=== PATIENT | female | born 1960 | race Caucasian/White ===

== ENCOUNTER 2018-02-17 03:07 | Inpatient (IN) | payer MEDICAID, SELFPAY ==
[2018-02-17 03:10] VITALS: BP 143/79; PULSE 105; RESP 18; TEMP 36.5; O2SAT 97; BMI 32.3
--- NOTE | 2018-02-17 03:20 | ED.VISSUMM ---
- ER Visit Summary Date of Service: 02/17/18 Chief Complaint: Dysuria History of Present Illness: The patient is a 57 F presenting with dysuria. She states this has been ongoing for months. She states 2 months ago she was seen by her primary care physician and had a negative UA. She was advised to follow-up with her VIDEO CONTROL ENGINEER. She states her VIDEO CONTROL ENGINEER tested her urine and it was positive for bacteria and she was treated with for UTI with unknown antibiotic. This was approximately 2 months ago. She has had intermittent pain with urination. She states it worsened today. She has had dysuria, hematuria, urinary frequency. Denies fever or other complaints. Physical Examination: Vitals are stable. Patient is afebrile. Alert no acute distress. HEENT exam is unremarkable. Neck is supple. Lungs are clear and equal bilaterally. Heart is regular rate and rhythm. Abdomen is soft mild suprapubic tenderness, no rebound or guarding. Reducible hernia Pelvic: No vaginal bleeding Extremities are unremarkable. Skin is warm and dry. No focal neurologic deficit. Remainder of exam is unremarkable. Emergency Department Course and Treatment: Urine was grossly bloody. Urinalysis shows over 100 red blood cells, over 100 white cells. CBC shows a WBC count 11.8. INR 1.1. Hemoglobin 14.5. Urine culture sent. CT abdomen pelvis shows mild diffuse mural thickening of the urinary bladder. 8 mm nodular density in the posterior midline urinary bladder may represent a blood clot or soft tissue mass. Air in the urinary bladder lumen is probably due to recent catheterization. Otherwise, the possibility of urinary infection with gas producing bacteria must be considered. Left renal cyst. No demonstrated urinary calculi or hydronephrosis. Status post appendectomy, hysterectomy, small bowel surgery, and partial resection of the sigmoid colon. Abdominal wall hernias containing small bowel loops. No associated bowel obstruction or strangulation. Gaffney catheter was placed after her CT was performed. She was given Cipro IV. Bladder was irrigated. With irrigation it did clear to light pink and then became darker again. Discussed with Dr. Johnson and the hospitalist for admission. Disposition: Observation Impression: Hematuria, UTI This note was generated with GOQiiation software. It may contain incorrect words, spelling, and punctuation that were not noted in review of the chart prior to signing ED Disposition - Plan for ED Patient: Chief Complaint: Complaint Referrals: Lorelei Borges MD [Primary Care Provider] -
--- NOTE | 2018-02-17 03:23 | ED.DCSUM_ITS ---
- ER Visit Summary Date of Service: 02/17/18 Chief Complaint: Dysuria History of Present Illness: The patient is a 57 F presenting with dysuria. She states this has been ongoing for months. She states 2 months ago she was seen by her primary care physician and had a negative UA. She was advised to follow- up with her AUDIT MACHINE OPERATOR. She states her AUDIT MACHINE OPERATOR tested her urine and it was positive for bacteria and she was treated with for UTI with unknown antibiotic. This was approximately 2 months ago. She has had intermittent pain with urination. She states it worsened today. She has had dysuria, hematuria, urinary frequency. Denies fever or other complaints. Physical Examination: Vitals are stable. Patient is afebrile. Alert no acute distress. HEENT exam is unremarkable. Neck is supple. Lungs are clear and equal bilaterally. Heart is regular rate and rhythm. Abdomen is soft mild suprapubic tenderness, no rebound or guarding. Reducible hernia Pelvic: No vaginal bleeding Extremities are unremarkable. Skin is warm and dry. No focal neurologic deficit. Remainder of exam is unremarkable. Emergency Department Course and Treatment: Urine was grossly bloody. Urinalysis shows over 100 red blood cells, over 100 white cells. CBC shows a WBC count 11.8. INR 1.1. Hemoglobin 14.5. Urine culture sent. CT abdomen pelvis shows mild diffuse mural thickening of the urinary bladder. 8 mm nodular density in the posterior midline urinary bladder may represent a blood clot or soft tissue mass. Air in the urinary bladder lumen is probably due to recent catheterization. Otherwise, the possibility of urinary infection with gas producing bacteria must be considered. Left renal cyst. No demonstrated urinary calculi or hydronephrosis. Status post appendectomy, hysterectomy, small bowel surgery, and partial resection of the sigmoid colon. Abdominal wall hernias containing small bowel loops. No associated bowel obstruction or strangulation. Gaffney catheter was placed after her CT was performed. She was given Cipro IV. Bladder was irrigated. With irrigation it did clear to light pink and then became darker again. Discussed with Dr. Johnson and the hospitalist for admission. Disposition: Observation Impression: Hematuria, UTI This note was generated with AutekBioation software. It may contain incorrect words, spelling, and punctuation that were not noted in review of the chart prior to signing ED Disposition - Plan for ED Patient: Chief Complaint: Complaint Referrals: Lorelei Borges MD [Primary Care Provider] -
[2018-02-17 03:34] LABS: Bacteria 0 SEEN /hpf (None Seen); Mucous, Urine 0 SEEN /hpf (<or=2+)
[2018-02-17 03:50] LABS: Color, Urine Red (Yellow); Glucose, Dipstick 250 mg/dl (Normal); Ketone-Dipstick 5 mg/dl (Negative); Leukocyte Esterase-Dipstick Negative /ul (Negative); Nitrite-Dipstick Negative (Negative); Occult Blood-Urine 250 /ul (Negative); Protein-Dipstick 100 mg/dl (Negative); Red Blood Cells-Urine > 100 SEEN /hpf (0-5); Squamous Epithelial Cells - UA 0-5 SEEN /hpf (5-10); Urine Bilirubin Dipstick Negative (Negative); Urine Clarity Turbid (Clear); Urine Urobilinogen Normal (Normal); Urine pH 6.5 (5.0 - 8.0); White Blood Cells >100 SEEN /hpf (0-5)
[2018-02-17 03:50] LABS: Absolute Lymphocyte Count 2.75 X10^3/ul (0.83-4.51); Absolute Neutrophil Count 7.9 X10^3/uL (2.0-7.7); Basophil# 0.03 X10^3/uL; Basophil% 0.3 % (0-1); Eosinophil# 0.32 X10^3/uL; Eosinophils% 2.7 % (0-5); Hematocrit 43.4 % (37-47); Hemoglobin 14.5 g/dl (12.0-15.0); Lymphocyte # 2.75 X10^3/ul (4.0); Lymphocyte % 23.3 % (19-41); Mean Corp Hgb Conc 33.4 g/gl (32-36); Mean Corpuscular Hgb 29.1 pg (27.0-32.0); Monocyte# 0.79 X10^3/uL; Monocyte% 6.7 % (0-10); Neutrophil # 7.87 X10^3/uL (2.7-7.7); Neutrophil % 66.8 % (47-70); POSITIVE COUNT NO; POSITIVE DIFFERENTIAL NO; POSITIVE MORPHOLOGY NO; Platelet Count 347 K/mm3 (150-450); RBC Distribution Width CV 13.8 % (11.6-14.6); RBC Distribution Width SD 43.4 fl (35.1-43.9); Red Blood Count 4.99 M/mm3 (4.2-5.4); White Blood Count 11.8 K/mm3 (4.4-11.0)
--- NOTE | 2018-02-17 03:50 | CT_ITS ---
STUDY: CT ABDOMEN AND PELVIS WITH CONTRAST REASON FOR EXAM: Female, 57 years old. Hematuria. Low pelvic pain. History of colon cancer in 2010 with colectomy. History of small bowel obstruction with removal of 10 inches. History of appendectomy and total abdominal hysterectomy. RADIATION DOSAGE (If Supplied By Facility): CTDIvol = ( 15.66 ) mGy, DLP = ( 1074.18 ) mGycm TECHNIQUE: Transaxial images were obtained from the dome of the diaphragm to the symphysis pubis without oral contrast. 100ML ml of Isovue 300 contrast was administered. Sagittal and coronal images were reconstructed. Individualized dose optimization techniques were used for this CT. COMPARISON: None. FINDINGS: The visualized lung bases are unremarkable. The visualized portions of the heart are within normal limits. Normal liver. Normal gallbladder and extrahepatic biliary system. Normal spleen. Normal pancreas. Normal bilateral adrenal glands. Normal right kidney. There is a 2 cm left upper pole renal cortical cyst. Hours, normal left kidney. Normal visualized stomach. There is evidence for previous small bowel surgery. There is evidence for previous sigmoid colon surgery. Otherwise, normal colon. There is non-visualization of the appendix, consistent with given history of prior appendectomy. There is mild atherosclerotic calcification of the abdominal aorta, without a demonstrated aneurysm. Normal inferior vena cava. Normal retroperitoneum. There is air in the urinary bladder lumen which might be due to recent catheterization. If the patient has not been catheterized, and the possibility of infection with gas producing bacteria must be considered. There is mild diffuse mural thickening of the urinary bladder. As seen on axial images 96-98, there an 8 mm focal density within the posterior bladder lumen which might represent a blood clot or a soft tissue mass. There is absence of the uterus consistent with a prior hysterectomy. There are left periumbilical and left para midline anterior pelvic wall hernias which contain small bowel loops. There is no associated bowel obstruction or strangulation There are multilevel degenerative changes of the visualized lumbar spine. CT/Abdomen/Pelvis W IV Cont ONLY IMPRESSION: Mild diffuse mural thickening of the urinary bladder. 8 mm nodular density in the posterior midline urinary bladder may represent a blood clot or soft tissue mass. Air in the urinary bladder lumen is probably due to recent catheterization. Otherwise, the possibility of urinary infection with gas producing bacteria must be considered. Left renal cyst. No demonstrated urinary calculi or hydronephrosis. Status post appendectomy, hysterectomy, small bowel surgery, and partial resection of the sigmoid colon. Abdominal wall hernias containing small bowel loops. No associated bowel obstruction or strangulation. Electronically Signed: Syed Edwards MD at 4:58 EDT , Service support ,
[2018-02-17 03:56] LABS: International Normalized Ratio 1.1; Prothrombin Time (Protime)PT. 13.7 SECONDS (11.7-14.9)
[2018-02-17 04:07] LABS: Anion Gap 10 (5-15); BUN 10 mg/dL (7-18); BUN/Creat Ratio 10.6 RATIO (10-20); Calcium,Total 8.8 mg/dL (8.5-10.1); Chloride 99 mmol/L (98-107); Creatinine, Serum 0.94 mg/dL (0.55-1.02); EST Glomerular Filtration Rate 65 mL/min (>60); Est Glom Filt Rate - Afr Amer 78 mL/min (>60); Estimated Creatinine Clearance 54.62 ml/min; Glucose 462 mg/dL (74-106); Potassium 3.6 mmol/L (3.5-5.1); Sodium Level 138 mmol/L (136-145)
--- NOTE | 2018-02-17 04:08 | ED.RN ---
LAB CALLS WITH CRITICAL RESULT, GLUCOSE 462, DR. SANDOVAL MADE AWARE.
[2018-02-17 05:11] VITALS: RESP 17
--- NOTE | 2018-02-17 05:19 | ED.RN ---
PT IRRIGATED WITH APPROXIMATELY 250 ML STERILE WATER. PT DRAINING PINK TO BRIGHT RED URINE. MINIMAL CLOTS NOTED.
[2018-02-17] MEDS: Ciprofloxacin 400 MG/200 ML BAG 200 MG IV (05:48)
[2018-02-17 05:53] VITALS: BP 141/73; PULSE 91; RESP 15; TEMP 36.3; O2SAT 99
--- NOTE | 2018-02-17 07:23 | PCM.HP.STD ---
Problem List (1) Uncontrolled diabetes mellitus Status: Chronic Qualifiers: Diabetes mellitus type: type 2 (2) HTN (hypertension) Status: Chronic (3) HLD (hyperlipidemia) Status: Chronic (4) Restless leg Status: Chronic (5) Hematuria Status: Chronic (6) Complicated UTI (urinary tract infection) Status: Acute (7) Urine retention Status: Acute (8) History of colon cancer Status: Acute (9) History of uterine cancer Status: Chronic (10) Tobacco dependence Status: Chronic (11) COPD (chronic obstructive pulmonary disease) Status: Chronic (12) Morbid obesity Status: Chronic (13) Bladder mass Status: Chronic History of Present Illness Date of Admission: 02/17/18 Chief Complaint: hematuria, urinary hesitancy, dysuria The patient is a 57 year old F with a with a PMH of diabetes mellitus type 2, hypertension, hyperlipidemia, history of colon cancer (status post sigmoid resection), history of uterine cancer (he status post DUANE/BSO), morbid obesity, nicotine addiction, reported RA(on methotrexate in the past) and restless leg syndrome presented to the emergency department at [facility] on 02/17/2018 complaining of suprapubic pain, hematuria, dysuria and inability to empty her bladder. Vital signs in the emergency room were temperature 97.2, pulse rate 103, blood pressure 102/64, respiratory rate 18 and she was 93-97% saturated on room air. A clean catch urine was obtained and showed greater than 100 WBCs per high-power field and greater than 100 RBCs per high-power field. There were no bacteria seen. White blood cell count was 11.8 with a normal differential. Hemoglobin and platelets are within normal limits. PT was 13.7. Electrolytes are normal and the BUN is 10 with a creatinine of 0.94. Random blood sugar was 462. Patient admits that she has no insurance and has not taken any medications, including insulin, for the past [address] scan of the abdomen was obtained prior to placement of a Barcenas catheter and showed mild diffuse mural thickening of the urine bladder with an 8 mm nodular density in the posterior midline urinary bladder. There was air in the urinary bladder lumen and once again this was prior to catheterization. There was no hydronephrosis. Patient was unable to urinate and a Barcenas catheter was placed with a large return of very bloody urine. The urine in the Barcenas bag now is pink. Her last colonoscopy was [address] Beckwith and was normal. Hysterectomy was in 2005. She was admitted to the hospital with a diagnosis of complicated UTI with possible bladder mass and gas producing bacteria. Past Medical History Past Medical History (Chronic Problems): Chronic Problems Uncontrolled diabetes mellitus (Chronic) HTN (hypertension) (Chronic) HLD (hyperlipidemia) (Chronic) Restless leg (Chronic) Hematuria (Chronic) History of uterine cancer (Chronic) Tobacco dependence (Chronic) COPD (chronic obstructive pulmonary disease) (Chronic) Morbid obesity (Chronic) Bladder mass (Chronic) Allergies metformin Adverse Reaction (Verified 02/17/18 03:07) Nausea Home Medications: Ambulatory Orders Medication Instructions Recorded Atorvastatin Calcium [Lipitor] 40 mg PO QHS 02/28/14 Ergocalciferol [Vitamin D] 50,000 unit PO Q7D 02/28/14 Gabapentin [Neurontin] 300 mg PO BIDCM 02/28/14 Gabapentin [Neurontin] 600 mg PO QHS 02/28/14 Insulin Glargine [Lantus SoloStar 44 units SC QHS 02/28/14 Pen] Lisinopril [Zestril] 10 mg PO DAILY 02/28/14 Pregabalin [Lyrica] 100 mg PO TID 02/28/14 Spironolactone [Aldactone] 50 mg PO DAILY 02/28/14 Ropinirole HCl [Requip] 5 mg PO QHS 02/17/18 Surgical History: - - colon resection for colon cancer by Dr. 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 Started smoking at the age of 15. Tobacco Use: Cigarettes Alcohol: Rare Drugs: None - *Family History Maternal History Items: Heart Disease Review of Systems Constitutional: Denies: Anorexia, Chills, Fever, Weakness Eyes: Denies: Vision Change HEENT: Denies: Head Aches, Sinus Congestion, Sinus Drainage Cardiovascular: Denies: Chest Pain, Edema, Light Headedness, Palpitations Respiratory: Reports: Wheezing. Denies: Cough, Shortness of Breath Gastrointestinal: Reports: - - Suprapubic pain. Denies: Diarrhea, Nausea, Vomiting Genitourinary: Reports: Dysuria, Hesitancy, Retention Gynecological: Denies: Breast symptoms, Vaginal discharge Musculoskeletal: Denies: Joint Pain, Joint Tenderness Skin: Denies: Jaundice, Rash, Wounds Neurological: Denies: Numbness, Tingling, Focal weakness Psychiatric: Reports: Anxiety. Denies: Suicidal Ideations Endocrine: Denies: Change in Body Habitus, Hx of Thyroiditis Hematologic/ Lymphatic: Denies: Hx of blood clot VTE Information - Inpt Only VTE Present on Admission: No VTE Mechan Device Prophylaxis: SCD's, Knee High JANET Hose VTE Pharm Prophylaxis ordered?: No Reason prophylaxis not ordered:: Treatment Not Indicated - having hematuria and may be going to surgery for bladder mass Patient Problems: Active and Suspected Problems Complicated UTI (urinary tract infection) (Acute) Urine retention (Acute) History of colon cancer (Acute) - Physical Exam General: Alert, Oriented x3, Cooperative, - - having restless legs HEENT: Atraumatic, PERRLA, EOMI, Normocephalic Oral: No Gingival or Mucosal Lesions/ Ulcerations, Dry Mucosa Neck: Supple, No JVD, No Nodes, Trachea Midline Lungs: No rhonchi, No wheeze, No rales, Diminished Cardiovascular: Regular rate, Regular Rhythm, Normal S1, Normal S2, No murmurs, No rub noted, No Gallop Abdomen: Bowel Sounds Present, Soft, Non Tender, Non-Distended Extremities: No clubbing, No cyanosis, No edema, No Calf Tenderness, Peripheral Pulses Normal Skin: No rashes, No breakdown, - - has a scratch on the RLE kristina the MM which has dried eschar...no erythema Musculoskeletal: No Muscle Wasting Lymphatic: No Cervical, Supraclavicular, or Inguinal Adenopathy Neurological: Cranial nerves II-XII grossly intact, Neuro grossly intact Psych/Mental Status: Normal Affect, Appropriate Vital Signs Temp Pulse Resp BP Pulse Ox 97.4 F L 91 15 141/73 H 99 02/17/18 05:53 02/17/18 05:53 02/17/18 05:53 02/17/18 05:53 02/17/18 05:53 Oxygen Delivery Method Room Air Weight: 182 lb 12.211 oz Body Mass Index (BMI) 32.3 Finger Stick Blood Glucose 218 Laboratory Tests Past 24 Hrs 02/17/18 02/17/1802/17/18 03:30 03:40 03:40 WBC 11.8 H RBC 4.99 Hgb 14.5 Hct 43.4 MCV 87.0 MCH 29.1 MCHC 33.4 RDW 13.8 RDW Differential 43.4 Plt Count 347 MPV 9.0 Immature Gran % (Auto) 0.200 Neut % (Auto) 66.8 Lymph % (Auto) 23.3 [place] % (Auto) 6.7 Eos % (Auto) 2.7 Baso % (Auto) 0.3 Absolute Neuts (auto) 7.9 H Absolute Lymphs (auto) 2.75 Total Counted Not Reportable PT 13.7 INR 1.1 Sodium Potassium Chloride Carbon Dioxide Anion Gap BUN Creatinine Estim Creat Clear Calc Est GFR (MDRD) Af Amer Est GFR (MDRD) Non-Af BUN/Creatinine Ratio Glucose Calcium Urine Color Red Urine Clarity Turbid Urine pH 6.5 Ur Specific [place] 1.020 Urine Protein 100 H Urine Glucose (UA) 250 H Urine Ketones 5 H Urine Occult Blood 250 H Urine Nitrite Negative Urine Bilirubin Negative Urine Urobilinogen Normal Ur Leukocyte Esterase Negative Urine RBC > 100 SEEN Urine WBC >100 SEEN Ur Squamous Epith Cells 0-5 SEEN Urine Bacteria 0 SEEN Urine Mucus 0 SEEN 02/17/18 03:40 WBC RBC Hgb Hct MCV MCH MCHC RDW RDW Differential Plt Count MPV Immature Gran % (Auto) Neut % (Auto) Lymph % (Auto) [place] % (Auto) Eos % (Auto) Baso % (Auto) Absolute Neuts (auto) Absolute Lymphs (auto) Total Counted PT INR Sodium 138 Potassium 3.6 Chloride 99 Carbon Dioxide 29.0 Anion Gap 10 BUN 10 Creatinine 0.94 Estim Creat Clear Calc 54.62 Est GFR (MDRD) Af Amer 78 Est GFR (MDRD) Non-Af 65 BUN/Creatinine Ratio 10.6 Glucose 462 H* Calcium 8.8 Urine Color Urine Clarity Urine pH Ur Specific [place] Urine Protein Urine Glucose (UA) Urine Ketones Urine Occult Blood Urine Nitrite Urine Bilirubin Urine Urobilinogen Ur Leukocyte Esterase Urine RBC Urine WBC Ur Squamous Epith Cells Urine Bacteria Urine Mucus Assessment/Plan All Active Problems Complicated UTI (urinary tract infection) (Acute) Urine retention (Acute) History of colon cancer (Acute) Impressions 1. complicated UTI? She is afebrile and has only a mildly increased WBC count with a normal diff? may just be candiduria from uncontrolled DM. I am concerned about the gas in the bladder that showed on CT scan PRIOR to barcenas insertion. Will treat with Swetha and Flagyl for now and await the results of urine culture. Will send a new specimen from the barcenas catheter and send that for culture. 2. Bladder mass vs clot 3. urine retention 4. Uncontrolled diabetes mellitus I have. Noncompliance with medications 6. Hypertension 7. Hyperlipidemia 8. History of sigmoid colon resection for colon cancer 9. History of uterine cancer-status post DUANE with BSO 10. Tobacco dependence 11. COPD 12. Restless leg syndrome 13. History of anxiety-has been on BuSpar in the past admit to medical surgical floor Consult Dr. Elizabeth Posada and Jennifer Send urine from the Barcenas catheter for UA and culture and discard the previous clean-catch urine Accu-Cheks before meals and at bedtime and start Levemir 20 units twice daily with sliding scale insulin coverage at meals Hemoglobin A1c, liver panel, magnesium, phosphorus Restart ropinirole for restless leg Restart lipid-lowering agent and lisinopril for hypertension Recheck lab in the a.m. Is at high risk for DVT however she does have significant hematuria and there is a possibility Dr. Palmer on to do a cystoscopy so will hold pharmacologic DVT prophylaxis at the present time and use SCDs and JANET hose for DVT prophylaxis Smoking cessation counseling was given. Will start Wellbutrin 150 mg every morning and a nicotine patch 21 mg daily smoking cessation counseling consult has been ordered Code Visit Inpatient E&M: 42221 Init Hosp L2
[2018-02-17] MEDS: Pramipexole Di-HCl 0.25 MG Tablet PO (07:33)
--- NOTE | 2018-02-17 07:54 | PCM.CONS.U ---
Reason for Consult Date of Consultation: 02/17/18 Reason for Consultation: Hemorrhagic cystitis History of Present Illness: The patient is a 57 year old female who has used her diabetes glucoses fairly high presented to the emergency room with gross hematuria, CAT scan was done demonstrated some air in the bladder mild thickening of the bladder but mostly consistent with hemorrhagic cystitis I do not see any obvious masses or tumors. She does states that she has been battling infections for the last several weeks. The urine was fairly bloody on presentation to the emergency room catheter has been placed now the urine is clearing. She is concerned because she has a history of colon cancer on CAT scan she does have a incisional hernia Past Medical History Past Medical History (Chronic Problems): Chronic Problems Uncontrolled diabetes mellitus (Chronic) HTN (hypertension) (Chronic) HLD (hyperlipidemia) (Chronic) Restless leg (Chronic) Hematuria (Chronic) History of uterine cancer (Chronic) Tobacco dependence (Chronic) COPD (chronic obstructive pulmonary disease) (Chronic) Morbid obesity (Chronic) Bladder mass (Chronic) Allergies metformin Adverse Reaction (Verified 02/17/18 03:07) Nausea Home Medications: Ambulatory Orders Medication Instructions Recorded Atorvastatin Calcium [Lipitor] 40 mg PO QHS 02/28/14 Ergocalciferol [Vitamin D] 50,000 unit PO Q7D 02/28/14 Gabapentin [Neurontin] 300 mg PO BIDCM 02/28/14 Gabapentin [Neurontin] 600 mg PO QHS 02/28/14 Insulin Glargine [Lantus SoloStar 44 units SC QHS 02/28/14 Pen] Lisinopril [Zestril] 10 mg PO DAILY 02/28/14 Pregabalin [Lyrica] 100 mg PO TID 02/28/14 Spironolactone [Aldactone] 50 mg PO DAILY 02/28/14 Ropinirole HCl [Requip] 5 mg PO QHS 02/17/18 Surgical History: - - colon resection for colon cancer by Dr. 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 Started smoking at the age of 15. Tobacco Use: Cigarettes Alcohol: Rare Drugs: None - *Family History Maternal History Items: Heart Disease Review of Systems Constitutional: Denies: Chills, Fever, Weight Change HEENT: Denies: Head Aches, Sinus Congestion, Sinus Drainage Cardiovascular: Denies: Chest Pain, Palpitations Respiratory: Denies: Cough, Shortness of breath at rest, Sputum production Gastrointestinal: Denies: Abdominal Pain, Nausea, Vomiting Genitourinary: Denies: Dysuria Musculoskeletal: Denies: Joint Pain, Joint Tenderness Skin: Denies: Rash, Wounds Neurological: Denies: Numbness, Tingling, Focal weakness Psychiatric: Denies: Anxiety, Depression, Homicidal Ideations, Suicidal Ideations Hematologic/ Lymphatic: Denies: Easy Bruising, Easy Bleeding Physical Exam - Physical Exam Vital Signs Temp 97.4 F L 02/17/18 05:53 Pulse 91 02/17/18 05:53 Resp 15 02/17/18 05:53 BP 141/73 H 02/17/18 05:53 Pulse Ox 99 02/17/18 05:53 General: Alert, Oriented x3 HEENT: Atraumatic Oral: Moist Mucosa Neck: Supple Lungs: Normal air movement Cardiovascular: Regular rate - He would think that were not gotten out the, Regular Rhythm Abdomen: Bowel Sounds Present, Soft, Obese Rectal: Exam deferred Extremities: No clubbing, No cyanosis, No edema - they still do it Musculoskeletal: No Tenderness to Palpation of Joints or Extremities Lymphatic: No Cervical, Supraclavicular, or Inguinal Adenopathy Neurological: Cranial nerves II-XII grossly intact - The only by excessive daytime Assessment/Plan All Active Problems Complicated UTI (urinary tract infection) (Acute) Urine retention (Acute) History of colon cancer (Acute) 57-year-old female presents to the emergency room with a UA positive with with infection, air in the bladder consistent with hemorrhagic cystitis, urine is off fairly clear after some irrigation, probably can DC the Gaffney catheter within 24 hours, continue with antibiotics, follow up on urine cultures, she can follow-up with urology as an outpatient basis for an outpatient cystoscopy but I think the source of the hematuria is most like most likely hemorrhagic cystitis given the clinical setting also reviewed the CAT scan did not really see any obvious masses. Call me with questions.
[2018-02-17 08:10] VITALS: BMI 32.5
[2018-02-17 08:11] VITALS: BP 116/70; PULSE 98; RESP 16; TEMP 36.9; O2SAT 92
[2018-02-17 08:28] LABS: Erythrocyte Sedimentation Rate 34 mm/hr (0-30)
[2018-02-17 08:49] LABS: AST(SGOT) 10 U/L (15-37); Alanine Aminotransfer ALT/SGPT 16 U/L (13-56); Albumin, Serum 3.2 g/dL (3.2-5.0); Alkaline Phosphatase 174 U/L (45-117); Bilirubin, Direct 0.16 mg/dL (0.00-0.30); Magnesium 1.5 mg/dL (1.6-2.6); Phosphorus 3.1 mg/dL (2.5-4.9); Protein, Total 7.2 g/dL (6.4-8.2); Rheumatoid Factor < 10.0 IU/mL (<15)
[2018-02-17 08:50] LABS: Hemoglobin A1c 12.7 % (4.2-6.3)
[2018-02-17] MEDS: 0.9% Normal Saline 1,000 ML 75 ML IV (09:01)
[2018-02-17] MEDS: Ceftriaxone 1 GM/50 ML BAG IV (09:01)
[2018-02-17 09:03] LABS: Mucous, Urine 0 SEEN /hpf (<or=2+)
[2018-02-17 09:06] LABS: Color, Urine Yellow (Yellow); Glucose, Dipstick 1000 mg/dl (Normal); Ketone-Dipstick Negative (Negative); Leukocyte Esterase-Dipstick 500 /ul (Negative); Nitrite-Dipstick Negative (Negative); Occult Blood-Urine 250 /ul (Negative); Protein-Dipstick 100 mg/dl (Negative); Specific Gravity, Urine 1.015 (1.002-1.030); Urine Bilirubin Dipstick Negative (Negative); Urine Clarity Sl. Cloudy (Clear); Urine Urobilinogen Normal (Normal)
[2018-02-17] MEDS: Acetaminophen 325 MG Tablet 650 MG PO (09:06)
[2018-02-17] MEDS: Insulin Lispro 100 UNIT/ML INSULN.PEN SQ ×4 (09:06→21:58)
[2018-02-17] MEDS: buPROPion (XL) 150 MG TABLET.XL PO (09:08)
[2018-02-17] MEDS: Lisinopril 10 MG Tablet PO (09:08)
[2018-02-17 09:16] LABS: Bedside Glucose 433 mg/dL (70-110)
[2018-02-17 09:17] LABS: Bacteria 1+ /hpf (None Seen); Red Blood Cells-Urine 25-50 SEEN /hpf (0-5); Squamous Epithelial Cells - UA 0-5 SEEN /hpf (5-10); White Blood Cells 50-100 SEEN /hpf (0-5)
[2018-02-17 12:35] LABS: Bedside Glucose 350 mg/dL (70-110)
[2018-02-17 14:24] VITALS: BP 121/65; PULSE 86; RESP 16; TEMP 37; O2SAT 94
[2018-02-17 17:11] LABS: Bedside Glucose 193 mg/dL (70-110)
[2018-02-17] MEDS: Pregabalin 50 MG Capsule 100 MG PO (18:44)
[2018-02-17] MEDS: hydrOXYzine PAM 25 MG Capsule PO (20:23)
[2018-02-17 20:24] VITALS: BP 128/72; PULSE 95; RESP 18; TEMP 36.7; O2SAT 93
[2018-02-17] MEDS: Atorvastatin Calcium 40 MG Tablet PO (21:21)
[2018-02-17] MEDS: Pramipexole Di-HCl 1 MG Tablet PO (21:56)
[2018-02-17] MEDS: Pantoprazole Sodium 40 MG Tablet PO (21:56)
[2018-02-17] MEDS: busPIRone 5 MG Tablet PO (21:56)
[2018-02-17 22:09] LABS: Amphetamine Urine VISTA NEGATIVE (<1000 ng/mL); Barbiturate Urine VISTA NEGATIVE (< 200 ng/mL); Benzodiazepine Urine VISTA NEGATIVE (< 200 ng/mL); Cocaine Urine VISTA NEGATIVE (< 300 ng/mL); Ecstacy Urine VISTA POSITIVE (< 500 ng/mL); Methadone Urine VISTA NEGATIVE (< 300 ng/mL); PCP Urine VISTA NEGATIVE (< 25 ng/mL); THC Urine VISTA NEGATIVE (< 50 ng/mL); Vista UDS pH Range 5
[2018-02-17 23:01] LABS: Bedside Glucose 237 mg/dL (70-110)
[2018-02-18] MEDS: 0.9% Normal Saline 1,000 ML 75 ML IV (00:01)
[2018-02-18 02:50] VITALS: BP 124/65; PULSE 92; RESP 16; TEMP 36.6; O2SAT 94
[2018-02-18] MEDS: Pregabalin 50 MG Capsule 100 MG PO ×2 (06:41→15:35)
[2018-02-18 06:46] LABS: Bedside Glucose 140 mg/dL (70-110)
[2018-02-18 06:51] LABS: Absolute Neutrophil Count 6.2 X10^3/uL (2.0-7.7); Basophil# 0.02 X10^3/uL; Basophil% 0.2 % (0-1); Eosinophil# 0.25 X10^3/uL; Eosinophils% 2.7 % (0-5); Hematocrit 40.1 % (37-47); Hemoglobin 12.9 g/dl (12.0-15.0); Lymphocyte % 23.6 % (19-41); Mean Corp Hgb Conc 32.2 g/gl (32-36); Mean Corpuscular Hgb 28.3 pg (27.0-32.0); Mean Corpuscular Volume 87.9 fL (81-99); Monocyte% 6.4 % (0-10); Neutrophil # 6.24 X10^3/uL (2.7-7.7); Platelet Count 312 K/mm3 (150-450); RBC Distribution Width SD 45.1 fl (35.1-43.9); Red Blood Count 4.56 M/mm3 (4.2-5.4); White Blood Count 9.3 K/mm3 (4.4-11.0)
[2018-02-18 06:56] LABS: POSITIVE COUNT NO; POSITIVE DIFFERENTIAL NO; POSITIVE MORPHOLOGY NO
[2018-02-18 07:29] LABS: Anion Gap 5 (5-15); BUN 10 mg/dL (7-18); BUN/Creat Ratio 18.6 RATIO (10-20); Calcium,Total 8.1 mg/dL (8.5-10.1); Chloride 109 mmol/L (98-107); Cholesterol 84 mg/dL (200); Creatinine, Serum 0.54 mg/dL (0.55-1.02); EST Glomerular Filtration Rate 124 mL/min (>60); Est Glom Filt Rate - Afr Amer 150 mL/min (>60); Estimated Creatinine Clearance 95.08 ml/min; Glucose 155 mg/dL (74-106); High Density Lipoprotein 36 mg/dL; Magnesium 1.6 mg/dL (1.6-2.6); Potassium 3.2 mmol/L (3.5-5.1); Sodium Level 145 mmol/L (136-145); Triglycerides 177 mg/dL; Very Low Density Lipoprotein 35 mg/dL (5-40)
[2018-02-18] MEDS: Ceftriaxone 1 GM/50 ML BAG IV (09:10)
[2018-02-18 10:00] VITALS: BP 111/77; PULSE 98; RESP 18; TEMP 36.7; O2SAT 94
[2018-02-18] MEDS: busPIRone 5 MG Tablet PO (10:58)
[2018-02-18] MEDS: DULoxetine Hcl 60 MG Capsule PO (10:59)
[2018-02-18] MEDS: Lisinopril 10 MG Tablet PO (10:59)
[2018-02-18] MEDS: Pantoprazole Sodium 40 MG Tablet PO (10:59)
[2018-02-18 11:50] LABS: Bedside Glucose 228 mg/dL (70-110)
[2018-02-18] MEDS: Insulin Lispro 100 UNIT/ML INSULN.PEN SQ (11:58)
--- NOTE | 2018-02-18 12:20 | CASEMGMT ---
SEE RN CM LINK. D/C PLAN: HOME No discharge needs identified. Pt reports has upcoming appt w/BETO Walden for DM and diabetic supplies. Collette ADHIKARI RN CM
--- NOTE | 2018-02-18 13:51 | CON.PCM_ITS ---
Problem List (1) Neuropathy Status: Chronic Reason for Consult Date of Consultation: 02/18/18 Reason for Consultation: Neuropathy History of Present Illness: The patient is a 57 year old CF with PMH HTN, HLD, DM, DM Neuropathy, RLS, H/O Colon Cancer s/p chemotherapy, H/O uterine cancer, tobacco abuse, COPD admitted with complicated UTI and hemorrhagic cystitis. Neurology consulted for neuropathy. Per patient she has been having neuropathy symptoms for many years, has numbness in the feet, and fingers, became worse after chemotherapy for Colon cancer in 2009. Has been on Gabapentin initially for neuropathy which did not help with improving her symptoms and later Lyrica was added and since then her symptoms have been tolerable. At present she is on both Gabapentin and Lyrica, does not see any neurologist as outpatient. Denies any falls, denies balance issues, does not need assistance for her ADLs, and does drive. [] Past Medical History Past Medical History (Chronic Problems): Chronic Problems Uncontrolled diabetes mellitus (Chronic) HTN (hypertension) (Chronic) HLD (hyperlipidemia) (Chronic) Restless leg (Chronic) Hematuria (Chronic) History of uterine cancer (Chronic) Tobacco dependence (Chronic) COPD (chronic obstructive pulmonary disease) (Chronic) Morbid obesity (Chronic) Bladder mass (Chronic) Neuropathy (Chronic) Allergies metformin Adverse Reaction (Verified 02/17/18 03:07) Nausea Home Medications: Ambulatory Orders Medication Instructions Recorded Atorvastatin Calcium [Lipitor] 40 mg PO QHS 02/28/14 Ergocalciferol [Vitamin D] 50,000 unit PO MARTLEL 02/28/14 Gabapentin [Neurontin] 300 mg PO BID 02/28/14 Gabapentin [Neurontin] 600 mg PO QHS 02/28/14 Insulin Glargine [Lantus SoloStar 42 units SC QHS 02/28/14 Pen] Lisinopril [Zestril] 10 mg PO DAILY 02/28/14 Pregabalin [Lyrica] 100 mg PO TID 02/28/14 Spironolactone [Aldactone] 50 mg PO DAILY 02/28/14 Duloxetine HCl 60 mg PO DAILY 02/17/18 Pantoprazole Sodium [Protonix] 40 mg PO BID 02/17/18 Ropinirole HCl [Requip] 2 mg PO QHS 02/17/18 buPROPion XL [Wellbutrin Xl] 150 mg PO DAILY 02/17/18 Surgical History: - - colon resection for colon cancer by Dr. Beckwith, 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: - - uterine CA Lives: With Family Smoking Status: Current every day smoker Tobacco Use: Cigarettes - 2 PPD Alcohol: Rare Drugs: None - *Family History Maternal History Items: Heart Disease Review of Systems Constitutional: Reports: - - complete ROS negative except as documented in HPI Patient Problems: Active and Suspected Problems Complicated UTI (urinary tract infection) (Acute) Urine retention (Acute) History of colon cancer (Acute) - Physical Exam General: Alert HEENT: Normocephalic Neck: Supple Lungs: Normal air movement Cardiovascular: Normal S1, Normal S2 Abdomen: Bowel Sounds Present Extremities: No cyanosis Skin: No breakdown Musculoskeletal: No Tenderness to Palpation of Joints or Extremities Neurological: - - consious, awake, CN 2-12 grossly intact, power 5/5 all 4 extremites, no sensory loss, no cerebellar signs, Reflexes + B/L B/S/T/K/A, Rhomberg's positive, gait deferred Psych/Mental Status: Normal Affect Vital Signs Temp Pulse Resp BP Pulse Ox 98.1 F 98 18 111/77 94 02/18/18 10:00 02/18/18 10:00 02/18/18 10:00 02/18/18 10:00 02/18/18 10:00 Oxygen Delivery Method Room Air Weight: 83.28 kg Body Mass Index (BMI) 32.5 Intake and Output for Last 24 Hours 02/16/18 02/17/18 02/18/18 23:59 23:59 23:59 Intake Total 347 / 347 2201 / 2201 Output Total 950 / 950 500 / 500 Balance -603 / -603 1701 / 1701 Microbiology Past 72 Hours 02/17/18 08:43 Urine Culture - Preliminary Urine Catheter - Gaffney Culture exhibits no growth. Laboratory Tests Past 24 Hrs 02/17/18 02/18/18 02/18/18 08:43 05:55 05:55 WBC 9.3 RBC 4.56 Hgb 12.9 Hct 40.1 MCV 87.9 MCH 28.3 MCHC 32.2 RDW 14.0 RDW Differential 45.1 H Plt Count 312 MPV 9.0 Immature Gran % (Auto) 0.100 Neut % (Auto) 67.0 Lymph % (Auto) 23.6 Rabun % (Auto) 6.4 Eos % (Auto) 2.7 Baso % (Auto) 0.2 Absolute Neuts (auto) 6.2 Absolute Lymphs (auto) 2.20 Total Counted Not Reportable Sodium 145 Potassium 3.2 L Chloride 109 H Carbon Dioxide 31.0 Anion Gap 5 BUN 10 Creatinine 0.54 L Estim Creat Clear Calc 95.08 Est GFR (MDRD) Af Amer 150 Est GFR (MDRD) Non-Af 124 BUN/Creatinine Ratio 18.6 Glucose 155 H Calcium 8.1 L Magnesium 1.6 Triglycerides 177 Cholesterol 84 LDL Cholesterol 13 VLDL Cholesterol 35 HDL Cholesterol 36 L Urine Opiates Screen NEGATIVE Urine Methadone Screen NEGATIVE Ur Barbiturates Screen NEGATIVE Ur Phencyclidine Scrn NEGATIVE Ur Amphetamines Screen NEGATIVE U Methamphetamin-MDMA POSITIVE H U Benzodiazepines Scrn NEGATIVE Urine Cocaine Screen NEGATIVE U Cannabinoids Screen NEGATIVE Ur Drug Screen Comment POC Glucose 02/18/18 02/18/18 02/17/18 11:46 06:39 21:52 POC Glucose 228 H 140 H 237 H 02/17/18 17:00 POC Glucose 193 H Assessment/Plan All Active Problems Complicated UTI (urinary tract infection) (Acute) Urine retention (Acute) History of colon cancer (Acute) The patient is a 57 year old CF with PMH HTN, HLD, DM, DM Neuropathy, RLS, H/O Colon Cancer s/p chemotherapy, H/O uterine cancer, tobacco abuse admitted with complicated UTI and hemorrhagic cystitis. Neurology consulted for neuropathy. Per patient she has been having neuropathy symptoms for many years, has numbness in the feet, and fingers, became worse after chemotherapy for Colon cancer in 2009. Has been on Gabapentin initially for neuropathy which did not help with improving her symptoms and later Lyrica was added and since then her symptoms have been tolerable. At present she is on both Gabapentin and Lyrica, does not see any neurologist as outpatient. Denies any falls, denies balance issues, does not need assistance for her ADLs, and does drive Impression Peripheral Neuropathy-possible secondary to DM vs chemotherapy induced Plan -At present patient is on both Gabapentin 300 mg PO BID, 600 mg PO q hs and Lyrica 100 mg PO TID. -Recommend weaning off Gabapentin since it did not help her symptoms in the past. Change to Gabapentin 100 mg PO TID for 3 days, then decrease to 100 mg PO BID for 3 days, then decrease to 100 mg PO once daily for 3 days, then stop -Change Lyrica to 150 mg PO BID. On Cymbalta 60 mg PO daily -On Pramipexole 1 mg PO q hs for RLS. -Qnb9u-24.7% -Recommend EMG/NCS both UE/LE as outpatient. Per patient she never had EMG/NCS in the past -Recommend Vitamin B12, TSH, SPEP with CHADWICK, UPEP with CHADWICK, JAIRON/ANCA/RF/SSa/SSb AB -Patient counseled to quit smoking, she understands the same. -Further medical management per primary team. Recommend endocrinology referral for better DM control -GI/DVT prophylaxis -Fall precautions -Follow up with Neurology as outpatient in 6 weeks -Please call with questions if any -Thank you for allowing us to participate in patient's care and management I spent 60 minutes taking history, doing physical examination, reviewing medical records, coordinating care and counseling the patient. Code Visit Inpatient E&M: 26329 Init Hosp L3
--- NOTE | 2018-02-18 14:58 | DCINST_ITS ---
- Discharge Diagnoses Current Active Problems: Current Active and Chronic Problems Uncontrolled diabetes mellitus (Chronic) HTN (hypertension) (Chronic) HLD (hyperlipidemia) (Chronic) Restless leg (Chronic) Hematuria (Chronic) Complicated UTI (urinary tract infection) (Acute) Urine retention (Acute) History of colon cancer (Acute) History of uterine cancer (Chronic) Tobacco dependence (Chronic) COPD (chronic obstructive pulmonary disease) (Chronic) Morbid obesity (Chronic) Bladder mass (Chronic) Neuropathy (Chronic) You will use the following diet at home:: Calorie/Carbohydrate Controlled ( specify 1200, 1400, etc) Discharge Activity: Return to Normal Activity Call your doctor if you observe: Inability to urinate, Shortness of breath, Dizziness, Fainting spells, Chest pain Additional Instructions: Your home Lyrica and Neurontin regimen have been adjusted. Your home Lyrica was decreased to 150 mg twice daily. You will slowly taper your gabapentin regimen at discharge. Begin gabapentin 100 mg 3 times daily for 3 days, then decrease to 100 mg twice daily for 3 days, then decrease to 100 mg once daily for 3 days, then discontinue completely. Allergies/Adverse Reactions: Allergies metformin Adverse Reaction (Verified 02/17/18 03:07) Nausea Medications to take at Discharge Atorvastatin Calcium [Lipitor] 40 mg PO QHS 02/28/14 Ergocalciferol [Vitamin D] 50,000 unit PO MARTELL 02/28/14 Gabapentin [Neurontin] 600 mg PO QHS 02/28/14 Insulin Glargine [Lantus SoloStar Pen] 42 units SC QHS 02/28/14 Lisinopril [Zestril] 10 mg PO DAILY 02/28/14 Spironolactone [Aldactone] 50 mg PO DAILY 02/28/14 Duloxetine HCl 60 mg PO DAILY 02/17/18 Pantoprazole Sodium [Protonix] 40 mg PO BID 02/17/18 Ropinirole HCl [Requip] 2 mg PO QHS 02/17/18 buPROPion XL [Wellbutrin Xl] 150 mg PO DAILY 02/17/18 Cephalexin [Keflex] 500 mg PO Q12 #14 cap 02/18/18 Gabapentin [Neurontin] 100 mg PO TID 3 Days #0 02/18/18 Insulin Glargine [Lantus SoloStar Pen] 42 units SC QHS #1 pen 02/18/18 Insulin Lispro [Humalog KwikPen] See Protocol SQ ACHS #1 insuln.pen 02/18/18 Nicotine [Nicotine Patch] 1 ea TD DAILY #14 patch.td24 02/18/18 Pregabalin [Lyrica] 150 mg PO BID #0 02/18/18 busPIRone [Buspar] 5 mg PO BID #60 tab 02/18/18 The following prescriptions were given: Cephalexin [Keflex] 500 mg PO Q12 #14 cap Insulin Glargine [Lantus SoloStar Pen] 42 units SC QHS #1 pen Insulin Lispro [Humalog KwikPen] See Protocol SQ ACHS #1 insuln.pen Nicotine [Nicotine Patch] 1 ea TD DAILY #14 patch.td24 busPIRone [Buspar] 5 mg PO BID #60 tab Primary Care Physician: Lorelei Borges MD [Primary Care Provider] - Please follow up with your Primary Care Physician in: 1 Week Please Follow Up With: Abhishek Johnson MD When: 2 Weeks Please Follow Up With: Stan Angeles MD When: 6 Weeks Please Follow Up With: Tobacco Cessation Program When: Call to schedule, Proposed Discharge Date: 02/18/18
--- NOTE | 2018-02-18 15:17 | DS.PCM_ITS ---
Discharge Date and Diagnosis Date of Admission: 02/17/18 Date of Discharge: 02/18/18 - Primary Discharge Diagnosis Active and Suspected Problems 1. Complicated UTI 2. Urine retention 3. Bladder mass versus clot 4. Uncontrolled type 2 diabetes mellitus 5. Hematuria - Secondary Discharge Diagnosis Chronic Problems Uncontrolled diabetes mellitus (Chronic) HTN (hypertension) (Chronic) HLD (hyperlipidemia) (Chronic) Restless leg (Chronic) Hematuria (Chronic) History of uterine cancer (Chronic) Tobacco dependence (Chronic) COPD (chronic obstructive pulmonary disease) (Chronic) Morbid obesity (Chronic) Bladder mass (Chronic) Neuropathy (Chronic) Hospital Course and Treatment Imaging Results: Diagnostic Data Abdomen/Pelvis CT 02/17/18 03:50 IMPRESSION: Mild diffuse mural thickening of the urinary bladder. 8 mm nodular density in the posterior midline urinary bladder may represent a blood clot or soft tissue mass. Air in the urinary bladder lumen is probably due to recent catheterization. Otherwise, the possibility of urinary infection with gas producing bacteria must be considered. Left renal cyst. No demonstrated urinary calculi or hydronephrosis. Status post appendectomy, hysterectomy, small bowel surgery, and partial resection of the sigmoid colon. Abdominal wall hernias containing small bowel loops. No associated bowel obstruction or strangulation. Electronically Signed: Syed Edwards MD at 4:58 EDT , Service support , Dr. Angeles- Neurology Dr. Johnson- Urology Procedures: None Summary of Care Provided: The patient is a 57 year old F admitted 02/17/2018 due to hematuria, urinary hesitancy, dysuria. She has a past medical history of type 2 diabetes mellitus , hypertension, hyperlipidemia, history of colon cancer status post sigmoid resection, history of uterine cancer status post DUANE/BSO, nicotine dependence, morbid obesity, rheumatoid arthritis previously on methotrexate, restless leg syndrome, COPD. Urinalysis on admission positive. Patient noted to have complicated UTI. Initially treated with IV Rocephin and IV Flagyl. Gaffney placed due to urine retention. Repeat culture drawn from Gaffney catheter showed no growth. Dr. Johnson consulted. CT of abdomen and pelvis showed 8 mm nodular density in the urinary bladder which was noted to possibly represent blood clot versus soft tissue mass. Neurology suspects these findings are related to hemorrhagic cystitis. Gaffney catheter discontinued prior to discharge and patient voided without difficulty. She will continue oral Keflex 500 mg twice daily for 7 days. She will follow-up with urology as outpatient in 2 weeks for a cystoscopy. Neurology consulted as well for neuropathy, restless leg syndrome. On admission she was on both gabapentin and Lyrica. Neurology recommending decreasing Lyrica dose to 150 mg twice daily. She will taper gabapentin at discharge. She will initially take gabapentin 100 mg 3 times daily for 3 days then decrease to 100 mg twice daily for 3 days, then decrease 200 mg once daily for 3 days, then stop. Patient will follow up with neurology as outpatient in 6 weeks. Patient has a history of noncompliance with medications and has not been taking her diabetic medications as prescribed. Her hemoglobin A1c was 12.7%. She will continue previously prescribed Lantus regimen. She will be discharged on Humalog sliding scale as well. Patient has an appointment with BETO Walden 03/01/18 for further diabetes management. Recommend referral by primary care physician to pulmonary medicine for pulmonary function testing given patient's extensive smoking history. Other chronic medical conditions as noted above are stable at this time. Patient is stable for discharge home. She denies further urinary symptoms. Denies fever, chills. Patient seen exam prior to discharge. Alert, oriented, no acute distress. Lungs diminished, scattered wheezing. Heart rate regular in rate and rhythm. Abdomen soft, nontender. Neuro grossly intact. Normal affect. Vital signs stable. This patient was seen by YA Blake under the supervision of Dr. Villela. Discharge Diet: Carb Control Diet Discharge Activity: Return to Normal Activity Call your doctor if you observe: Inability to urinate, Shortness of breath, Dizziness, Fainting spells, Chest pain Home Medications: Medications to take at Discharge Atorvastatin Calcium [Lipitor] 40 mg PO QHS 02/28/14 Ergocalciferol [Vitamin D] 50,000 unit PO MARTELL 02/28/14 Gabapentin [Neurontin] 600 mg PO QHS 02/28/14 Insulin Glargine [Lantus SoloStar Pen] 42 units SC QHS 02/28/14 Lisinopril [Zestril] 10 mg PO DAILY 02/28/14 Spironolactone [Aldactone] 50 mg PO DAILY 02/28/14 Duloxetine HCl 60 mg PO DAILY 02/17/18 Pantoprazole Sodium [Protonix] 40 mg PO BID 02/17/18 Ropinirole HCl [Requip] 2 mg PO QHS 02/17/18 buPROPion XL [Wellbutrin Xl] 150 mg PO DAILY 02/17/18 Cephalexin [Keflex] 500 mg PO Q12 #14 cap 02/18/18 Gabapentin [Neurontin] 100 mg PO TID 3 Days #0 02/18/18 Insulin Glargine [Lantus SoloStar Pen] 42 units SC QHS #1 pen 02/18/18 Insulin Lispro [Humalog KwikPen] See Protocol SQ ACHS #1 insuln.pen 02/18/18 Nicotine [Nicotine Patch] 1 ea TD DAILY #14 patch.td24 02/18/18 Pregabalin [Lyrica] 150 mg PO BID #0 02/18/18 busPIRone [Buspar] 5 mg PO BID #60 tab 02/18/18 Following Prescrptions Were Given to Patient: Cephalexin [Keflex] 500 mg PO Q12 #14 cap Insulin Glargine [Lantus SoloStar Pen] 42 units SC QHS #1 pen Insulin Lispro [Humalog KwikPen] See Protocol SQ ACHS #1 insuln.pen Nicotine [Nicotine Patch] 1 ea TD DAILY #14 patch.td24 busPIRone [Buspar] 5 mg PO BID #60 tab Primary Care Physician: Lorelei Borges MD [Primary Care Provider] - Please follow up with your Primary Care Physician in: 1 Week Please Follow Up With: Abhishek Johnson MD When: 2 Weeks Please Follow Up With: Stan Angeles MD When: 6 Weeks Please Follow Up With: Tobacco Cessation Program When: Call to schedule, Additional Instructions: Your home Lyrica and Neurontin regimen have been adjusted. Your home Lyrica was decreased to 150 mg twice daily. You will slowly taper your gabapentin regimen at discharge. Begin gabapentin 100 mg 3 times daily for 3 days, then decrease to 100 mg twice daily for 3 days, then decrease to 100 mg once daily for 3 days, then discontinue completely. Disposition: Home Minutes spent on discharge:: 35 Patient Condition:: Stable Medical Necessity - Tobacco Use Smoking Status: Current every day smoker Tobacco Use: Cigarettes - 2 PPD Meaningful Use Info Meaningful Use Diagnoses (Choose all that apply): None applicable
[2018-02-18 15:54] LABS: Vitamin B12 273 pg/mL (211-911)
[2018-02-18 15:58] LABS: Rheumatoid Factor < 10.0 IU/mL (<15); Thyroid Stim Hormone (TSH) 0.46 uIU/mL (0.358-3.74)
[2018-02-21 16:09] LABS: Albumin 2.8 g/dL (2.9-4.4); Alpha-1-Globulins 0.3 g/dL (0.0-0.4); Cytoplasmic Ab (C-ANCA) <1:20 titer (Neg:<1:20); Gamma Globulin 0.7 g/dL (0.4-1.8); Immunoglobulin A 284 mg/dL (87-352); Immunoglobulin G 646 mg/dL (700-1600); Immunoglobulin M 45 mg/dL (26-217); PROEL- TOTAL PROTEIN 5.8 g/dL (6.0-8.5)
[2018-02-21 17:31] LABS: IMMUNOFIXATION RESULT,S Comment: (.); Perinuclear Ab (P-ANCA) <1:20 titer (Neg:<1:20)
[2018-02-21 17:47] LABS: ANTINUCLEAR ANTIBODIES DIRECT Negative (Negative)
--- NOTE | 2018-02-22 15:50 | CASEMGMT ---
[place] TREVI[place]O Discharge Follow-up Phone Call: AZEEM: Tonny Strata: 3 Call Date: 02/22/18 Discharge Date: 02/18/18 Time of Call: 1550 Duration: 2 min Admitting Diagnosis: Hematuria, UTI [place] TREVIÑO completed follow-up phone call after recent hospitalization. Patient states she is doing well, just tired. Patient had no questions regarding discharge instructions or prescriptions. 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 Patient states that she will schedule her follow-up appts.
== END 2018-02-18 16:25 | disposition home or self-care (01) | DRG 320 ==
LOC: ED 05:41 → MS3 07:43
PROVIDERS: Psychiatry & Neurology Neurology; Admitting Provider Internal Medicine; Emergency Provider Emergency Medicine; Family Provider Internal Medicine; PCP Internal Medicine; Visit Provider Internal Medicine
DX: N30.91 Cystitis, unspecified with hematuria (principal); J44.9 Chronic obstructive pulmonary disease, unspecified; R33.9 Retention of urine, unspecified; E11.65 Type 2 diabetes mellitus with hyperglycemia; G25.81 Restless legs syndrome; E78.5 Hyperlipidemia, unspecified; I10 Essential (primary) hypertension; F17.210 Nicotine dependence, cigarettes, uncomplicated; G62.9 Polyneuropathy, unspecified; E66.01 Morbid (severe) obesity due to excess calories; Z85.42 Personal history of malignant neoplasm of other parts of uterus; Z90.710 Acquired absence of both cervix and uterus; Z90.49 Acquired absence of other specified parts of digestive tract; Z90.722 Acquired absence of ovaries, bilateral; Z90.79 Acquired absence of other genital organ(s); Z85.038 Personal history of other malignant neoplasm of large intestine; Z68.32 Body mass index [BMI] 32.0-32.9, adult; Z79.4 Long term (current) use of insulin
CPT/HCPCS: 36415; 51702; 74177; 80048; 80061; 80076; 80307; 81001; 82607; 82784; 82962; 83036; 83735; 84100; 84165; 84443; 85025; 85610; 85652; 86038; 86225; 86226; 86235; 86256; 86334; 86431; 87040; 87086; 87088; 97802; 99283; 99406; J7030; J7040; Q9967; A4216; J0744

== ENCOUNTER 2020-03-08 08:59 | Emergency (ER) | payer MEDICAID, SELFPAY ==
[2020-03-08 09:00] VITALS: BP 120/67; PULSE 91; RESP 18; TEMP 36.6; O2SAT 95; BMI 34.7
--- NOTE | 2020-03-08 09:28 | ED.VIS.GEN ---
History of Present Illness Chief Complaint: Complaint Informant: Patient Narrative: Patient is a 59-year-old female who presents to the emergency department for urinary difficulty and hematuria. Her initial symptoms started yesterday. She has been having some lower back pain with this. She does have a history of frequent urinary tract infections that she believes is related to this. She states she gets them multiple times per year. Last time she was on antibiotics for this was a few months ago. She denies any fevers or chills. No abdominal pain except for some suprapubic pressure. She has not been nauseous or vomiting. She denies any changes in bowel habits. She has not had any chest pain or shortness of breath. Walking does aggravate her lower back pain. No radiation of the pain down her legs. No saddle anesthesia. She does have a history of diabetes and is on insulin. She states that her blood sugars have been well controlled recently. Past Medical History - Allergies and Home Meds Allergies/Adverse Reactions: Allergies clindamycin Allergy (Verified 03/08/20 09:02) Swelling metformin Adverse Reaction (Verified 03/01/18 14:29) Nausea Primary Care Physician: Lorelei Borges MD [Primary Care Provider] - Prior records reviewed: Yes Past Medical History: - - COPD, diabetes, hypertension, hyperlipidemia Surgical History: - - colon resection for colon cancer by DUANE Lanza with BSO for uterine cancer, abdominal laparotomy for lysis of adhesions for small bowel obstruction Smoking Status: Current every day smoker - Family History Maternal Family History: Family History (Last Updated 03/01/18 @ 14:43 by Carmelina Jarrett) Father Arthritis Cancer Diabetes Heart disease Hypertension Mother Hypertension Sister Arthritis Lupus Daughter Kidney stones Family History: Reports: Heart Disease Review of Systems All systems negative except as indicated General: Denies: Chills, Fever, Sweats Eyes: Denies: Visual changes - bilaterally, Diplopia ENT: Denies: Rhinorrhea, Sore throat Cardiovascular: Denies: Chest pain, Palpitations Respiratory: Denies: Dyspnea, Cough, Dyspnea on exertion Gastrointestinal: Denies: Abdominal pain, Nausea, Vomiting, Diarrhea, Melena, Hematochezia Genitourinary: Reports: Hematuria, - - Difficulty urinating, incomplete emptying. Denies: Dysuria, Frequency Musculoskeletal: Reports: Back pain - Lower back. Denies: Extremity Pain Skin: Denies: Rash, Wounds Neurological: Denies: Headache, Weakness, Numbness Physical Exam Vital Signs/Narrative: Vital Signs Temp Pulse Resp BP Pulse Ox 03/08/20 09:00 97.8 F 91 18 120/67 95 Inital Vital Signs reviewed: Yes General: Well nourished, Well developed, No Acute Distress Head: Normocephalic, Atraumatic Eyes: Perrl, EOMI ENT: Moist mucous membranes, No rhinorrhea Neck: Supple, Nontender Cardiovascular: Regular rate, Regular rhythm, No murmurs Respiratory: No distress, CTA bilaterally, Chest nontender Abdomen: Soft, Nontender, Nondistended, Normal bowel sounds. Negative for: Guarding Back: Nontender, Normal Inspection. Negative for: CVA tenderness, Spinal tenderness Extremities: Nontender, No edema Skin: Normal color, No rash Neurological: Alert, Oriented x3, Cranial nerves II-XII grossly intact, Normal Strength, Normal Sensation Psychological: Normal affect, Normal Mood Diagnostic/Tx/Re-eval - Medical Decision Making Patient presents to the emergency department for concern for urinary tract infection as she has some difficulty going as well as some hematuria. She does have some lower back pain although I could not reproduce this on physical exam. Upon arrival to the emergency department she does not have any abnormal vital signs. Physical exam is benign. We will check a urinalysis as well as some basic lab work to check kidney function. Patient's urine did show evidence of urinary tract infection. We will cover her with a dose of Rocephin here in the emergency department. Her creatinine is elevated compared to her baseline. She does have a leukocytosis. Given all these findings with her history of diabetes I did recommend that she stay in the hospital for antibiotic treatment. Patient is adamant about not wanting to stay in the hospital at this time. Discussed risks associated with going home. Since she is overall generally well-appearing and does seem reliable to have close follow-up with her PCP will prescribe her Keflex for outpatient treatment. If she develops any worsening symptoms she is to return to the emergency department immediately. She understands and is agreeable with this plan. Will discharge home in stable condition. ED Disposition - Plan for ED Patient: Disposition: Home or Assisted Living Diagnosis: Pyelonephritis, Leukocytosis Instructions: Pyelonephritis Prescriptions: Cephalexin [Keflex] 500 mg PO TID 14 Days #42 cap Transmission Status: Pending to [id number] Referrals: Lorelei Borges MD [Primary Care Provider] - 2 Days
[2020-03-08 09:39] VITALS: BP 120/67; PULSE 91; RESP 18; TEMP 36.6; O2SAT 95
[2020-03-08 09:50] LABS: Mucous, Urine 0 SEEN /hpf (<or=2+)
[2020-03-08 09:51] LABS: Absolute Lymphocyte Count 3.08 X10^3/uL (0.83-4.51); Absolute Neutrophil Count 11.1 X10^3/uL (2.0-7.7); Basophil# 0.05 X10^3/uL; Basophil% 0.3 % (0-1); Eosinophil# 0.32 X10^3/uL; Hematocrit 43.1 % (37-47); Lymphocyte # 3.08 X10^3/ul (4.0); Lymphocyte % 19.5 % (19-41); Mean Corp Hgb Conc 32.5 g/dL (32-36); Mean Corpuscular Hgb 28.3 pg (27.0-32.0); Mean Corpuscular Volume 87.2 fL (81-99); Mean Platelet Vol. 9.4 fl (6.2-12.0); Monocyte# 1.17 X10^3/uL; Monocyte% 7.4 % (0-10); NRBC Flagged by Analyzer 0 % (0-5); Neutrophil # 11.14 X10^3/uL (2.7-7.7); Neutrophil % 70.4 % (47-70); Platelet Count 354 K/mm3 (150-450); RBC Distribution Width CV 14.2 % (11.6-14.6); RBC Distribution Width SD 45.2 fl (35.1-43.9); Red Blood Count 4.94 M/mm3 (4.2-5.4); White Blood Count 15.8 K/mm3 (4.4-11.0)
[2020-03-08 10:04] LABS: Anion Gap 6 (5-15); BUN 23 mg/dL (7-18); BUN/Creat Ratio 16.8 RATIO (10-20); Calcium,Total 8.4 mg/dL (8.5-10.1); Chloride 99 mmol/L (98-107); Creatinine, Serum 1.37 mg/dL (0.55-1.02); EST Glomerular Filtration Rate 42 mL/min (>60); Est Glom Filt Rate - Afr Amer 51 mL/min (>60); Estimated Creatinine Clearance 36.57 ml/min; Glucose 143 mg/dL (74-106); Sodium Level 134 mmol/L (136-145)
[2020-03-08 10:08] LABS: Color, Urine Yellow (Yellow); Glucose, Dipstick Normal (Normal); Ketone-Dipstick 5 mg/dl (Negative); Leukocyte Esterase-Dipstick 500 /ul (Negative); Nitrite-Dipstick Positive (Negative); Occult Blood-Urine 50 /ul (Negative); Protein-Dipstick 100 mg/dl (Negative); Urine Bilirubin Dipstick 3 mg/dL (Negative); Urine Clarity Cloudy (Clear); Urine Urobilinogen 4 mg/dl (Normal)
[2020-03-08 10:13] LABS: Bacteria 2+ /hpf (None Seen); Red Blood Cells-Urine 0-5 SEEN /hpf (0-5); Squamous Epithelial Cells - UA 0-5 SEEN /hpf (5-10); White Blood Cells 50-100 SEEN /hpf (0-5)
[2020-03-08 12:05] VITALS: BP 104/60; PULSE 85; RESP 16
== END 2020-03-08 12:06 | disposition home or self-care (01) ==
PROVIDERS: Emergency Provider Emergency Medicine; PCP Internal Medicine
DX: N12 Tubulo-interstitial nephritis, not specified as acute or chronic (principal); D72.829 Elevated white blood cell count, unspecified; E11.9 Type 2 diabetes mellitus without complications; E78.5 Hyperlipidemia, unspecified; I10 Essential (primary) hypertension; J44.9 Chronic obstructive pulmonary disease, unspecified; F17.200 Nicotine dependence, unspecified, uncomplicated; Z79.4 Long term (current) use of insulin; Z82.49 Family history of ischemic heart disease and other diseases of the circulatory system; Z85.038 Personal history of other malignant neoplasm of large intestine
CPT/HCPCS: 80048; 81001; 85025; 87086; 87088; 87186; 96365; 99282; J7030; A4216; J0696

== ENCOUNTER 2020-04-24 20:36 | Inpatient (IN) | payer MEDICAID, SELFPAY ==
[2020-04-24] VITALS (8 sets, daily range): BP systolic 90–109; BP diastolic 53–58; PULSE 104–127; RESP 16–22; TEMP 37.2–39.1; O2SAT 94–98; BMI 36.8
--- NOTE | 2020-04-24 21:17 | EKG12_ITS ---
Test Reason : FEVER Blood Pressure : / mmHG Vent. Rate : 117 BPM Atrial Rate : 117 BPM P-R Int : 160 ms QRS Dur : 088 ms QT Int : 310 ms P-R-T Axes : 077 087 045 degrees QTc Int : 432 ms Sinus tachycardia Otherwise normal ECG Confirmed by MORENO BLACK, ELYSSA ([id number]), copy editor CHESTER RITTER ([id number]) on 04/26/2020 11:28:46 A M Referred By: Cam Munoz Confirmed By:WILLAM MAYER MD
--- NOTE | 2020-04-24 21:18 | ED.DCSUM_ITS ---
History of Present Illness Chief Complaint: Fever Informant: Patient Onset: Today Current Severity: Mild Maximum Severity: Moderate Narrative: Patient presents with chills and fever that started this afternoon. She does report some congestion and a mild cough. She is bringing up green sputum. She denies nausea, vomiting, or diarrhea. She was recently treated for a kidney infection. She states other than still having some difficulty urinating though symptoms seem to be resolved. She did take Aleve a couple hours ago to help with body aches. - Past Medical History (1) Diabetes Status: Chronic (2) History of colon cancer Status: Chronic (3) COPD (chronic obstructive pulmonary disease) Status: Chronic (4) HLD (hyperlipidemia) Status: Chronic Comment: On statin. Tolerating. no change. (5) HTN (hypertension) Status: Chronic Comment: BP 101/67. No change. (6) History of uterine cancer Status: Chronic Past Medical History - Allergies and Home Meds Allergies/Adverse Reactions: Allergies clindamycin Allergy (Verified 04/24/20 20:41) Swelling metformin Adverse Reaction (Verified 04/24/20 20:41) Nausea Primary Care Physician: Lorelei Borges MD [Primary Care Provider] - Prior records reviewed: Yes Surgical History: - - colon resection for colon cancer by DUANE Lanza with BSO for uterine cancer, abdominal laparotomy for lysis of adhesions for small bowel obstruction Lives: Spouse/ Significant Other Smoking Status: Current every day smoker - Family History Maternal Family History: Family History (Last Updated 03/01/18 @ 14:43 by Carmelina Jarrett) Father Arthritis Cancer Diabetes Heart disease Hypertension Mother Hypertension Sister Arthritis Lupus Daughter Kidney stones Family History: Reports: Heart Disease Review of Systems General: Reports: Chills, Fever Eyes: Denies: Visual changes - bilaterally ENT: Reports: - - Congestion. Denies: Bilateral ear pain Cardiovascular: Denies: Chest pain Respiratory: Reports: Cough, Sputum Gastrointestinal: Denies: Abdominal pain, Nausea, Vomiting, Diarrhea Genitourinary: Denies: Dysuria Musculoskeletal: Reports: Myalgias Skin: Denies: Rash Neurological: Reports: Headache Hematologic: Denies: Easy bruising, Easy bleeding Allergy: Denies: Uticaria Physical Exam Vital Signs/Narrative: Vital Signs Temp Pulse Resp BP Pulse Ox 04/24/20 21:11 118 H 18 109/57 L 94 04/24/20 20:38 102.3 F H 127 H 22 H 104/58 L 94 General: Well nourished, Well developed Head: Normocephalic ENT: Moist mucous membranes Neck: Supple Cardiovascular: Tachycardia Respiratory: No distress, CTA bilaterally Abdomen: Soft, Nontender, Normal bowel sounds Extremities: Nontender Skin: Normal color Neurological: Alert, Oriented x3 Psychological: Normal affect Diagnostic/Tx/Re-eval Impressions Chest X-Ray 04/24/20 21:30 IMPRESSION: Focal opacity in the left lung along the left are bordered confluent with the left arm border and associated with a minimal linear opacity in the adjacent lung. Atelectasis, infiltrate or pleural pericardial scarring. This finding not present on prior exam of 10/02/2016. Electronically Signed: Torri Weber MD at 22:09 EDT , Service support , 04/24/20 21:30 Chest 1 View (Portable) [RAD] Stat Laboratory Results 04/24/20 04/24/20 04/24/20 21:00 21:00 21:00 WBC 5.6 RBC 3.87 L Hgb 11.1 L Hct 34.4 L MCV 88.9 MCH 28.7 MCHC 32.3 RDW Std Deviation 51.9 H RDW Coeff of Mat 16.1 H Plt Count 197 MPV 9.6 Immature Gran % (Auto) 0.200 Neut % (Auto) 91.0 H Lymph % (Auto) 5.5 L [place] % (Auto) 2.7 Eos % (Auto) 0.4 Baso % (Auto) 0.2 Absolute Neuts (auto) 5.1 Absolute Lymphs (auto) 0.31 L Nucleated RBC % 0 Differential Comment SCANNED PT 14.5 INR 1.2 APTT 28.4 Sodium 141 Potassium 4.1 Chloride 109 H Carbon Dioxide 27.0 Anion Gap 5 BUN 20 H Creatinine 1.25 H Estim Creat Clear Calc 39.59 Est GFR (MDRD) Af Amer 56 L Est GFR (MDRD) Non-Af 47 L BUN/Creatinine Ratio 16.0 Glucose 90 Lactic Acid Calcium 8.9 Total Bilirubin 0.60 AST 11 L ALT 18 Alkaline Phosphatase 118 H Total Protein 6.5 Albumin 3.0 L Globulin 3.5 Albumin/Globulin Ratio 0.9 COVID-19 (YING) 04/24/20 04/24/20 21:00 21:20 WBC RBC Hgb Hct MCV MCH MCHC RDW Std Deviation RDW Coeff of Mat Plt Count MPV Immature Gran % (Auto) Neut % (Auto) Lymph % (Auto) [place] % (Auto) Eos % (Auto) Baso % (Auto) Absolute Neuts (auto) Absolute Lymphs (auto) Nucleated RBC % Differential Comment PT INR APTT Sodium Potassium Chloride Carbon Dioxide Anion Gap BUN Creatinine Estim Creat Clear Calc Est GFR (MDRD) Af Amer Est GFR (MDRD) Non-Af BUN/Creatinine Ratio Glucose Lactic Acid 1.4 Calcium Total Bilirubin AST ALT Alkaline Phosphatase Total Protein Albumin Globulin Albumin/Globulin Ratio COVID-19 (YING) Negative - EKG Initial EKG Interpretation: Sinus Tachycardia - Has tach at 117 with no acute ischemia. - Medical Decision Making Patient was given Tylenol for fever here. Blood pressure did drop into the 90s systolic and has responded to IV fluid. Systolic pressure is currently 103. Patient has not yet been able to provide a urine sample. She refuses catheterization. Chest x-ray does show questionable infiltrate she has had cough with green sputum production. She will be given Rocephin and Zithromax which will cover lung as well as urine. I did discuss case with hospitalist. Because patient's blood pressures have been marginal she will be placed in the ICU for close monitoring. ED Disposition - Plan for ED Patient: Disposition: Acute Care Hospital [facility] Diagnosis: Severe sepsis Referrals: Lorelei Borges MD [Primary Care Provider] -
--- NOTE | 2020-04-24 21:30 | RAD_ITS ---
STUDY: X-RAY CHEST REASON FOR EXAM: Female, 60 years old. fever with sob TECHNIQUE: 1 view COMPARISON: Prior chest radiograph 10/02/2016 FINDINGS: The right lung is expanded and clear. New focal opacity of the left lung along the left heart border confluent with the left heart border associated with a minimal linear opacity in the peripheral lung. No other changes in the left lung. Normal size heart. Normal mediastinum and allison. Normal visualized pulmonary arteries. Normal visualized aortic arch and descending thoracic aorta. Normal visualized thoracic spine. Normal visualized ribs, clavicles, and shoulders. There is no demonstrated abnormality of the visualized soft tissue structures of the upper abdomen. RAD/Chest 1 View (Portable) IMPRESSION: Focal opacity in the left lung along the left are bordered confluent with the left arm border and associated with a minimal linear opacity in the adjacent lung. Atelectasis, infiltrate or pleural pericardial scarring. This finding not present on prior exam of 10/02/2016. Electronically Signed: Torri Weber MD at 22:09 EDT , Service support ,
[2020-04-24 21:33] LABS: Absolute Lymphocyte Count 0.31 X10^3/uL (0.83-4.51); Absolute Neutrophil Count 5.1 X10^3/uL (2.0-7.7); Basophil# 0.01 X10^3/uL; Basophil% 0.2 % (0-1); Eosinophil# 0.02 X10^3/uL; Eosinophils% 0.4 % (0-5); Hematocrit 34.4 % (37-47); Hemoglobin 11.1 g/dL (12.0-15.0); Lymphocyte # 0.31 X10^3/ul (4.0); Lymphocyte % 5.5 % (19-41); Mean Corp Hgb Conc 32.3 g/dL (32-36); Mean Corpuscular Hgb 28.7 pg (27.0-32.0); Mean Corpuscular Volume 88.9 fL (81-99); Mean Platelet Vol. 9.6 fl (6.2-12.0); Monocyte# 0.15 X10^3/uL; Monocyte% 2.7 % (0-10); NRBC Flagged by Analyzer 0 % (0-5); Neutrophil # 5.13 X10^3/uL (2.7-7.7); POSITIVE DIFFERENTIAL YES; Platelet Count 197 K/mm3 (150-450); RBC Distribution Width CV 16.1 % (11.6-14.6); RBC Distribution Width SD 51.9 fl (35.1-43.9); Red Blood Count 3.87 M/mm3 (4.2-5.4); White Blood Count 5.6 K/mm3 (4.4-11.0)
[2020-04-24 21:36] LABS: International Normalized Ratio 1.2; Prothrombin Time (Protime)PT. 14.5 SECONDS (11.7-14.9)
[2020-04-24 21:37] LABS: Partial Thromboplast Time 28.4 Seconds (24.1-36.2)
[2020-04-24 21:43] LABS: Differential Indicated SCAN CRITERIA MET
[2020-04-24 21:47] LABS: Lactic Acid 1.4 mmol/L (0.4-1.9)
[2020-04-24 21:49] LABS: ALB/GLOB Ratio 0.9 RATIO (0.9-2.4); AST(SGOT) 11 U/L (15-37); Alanine Aminotransfer ALT/SGPT 18 U/L (13-56); Alkaline Phosphatase 118 U/L (45-117); Anion Gap 5 (5-15); BUN 20 mg/dL (7-18); Calcium,Total 8.9 mg/dL (8.5-10.1); Chloride 109 mmol/L (98-107); Creatinine, Serum 1.25 mg/dL (0.55-1.02); EST Glomerular Filtration Rate 47 mL/min (>60); Est Glom Filt Rate - Afr Amer 56 mL/min (>60); Estimated Creatinine Clearance 39.59 ml/min; Globulin 3.5 g/dL (2.2-4.2); Glucose 90 mg/dL (74-106); Potassium 4.1 mmol/L (3.5-5.1); Protein, Total 6.5 g/dL (6.4-8.2); Sodium Level 141 mmol/L (136-145)
[2020-04-24] MEDS: 0.9% Normal Saline 1,000 ML 999 ML IV ×2 (21:49→22:28)
[2020-04-24] MEDS: Acetaminophen 500 MG Tablet 1000 MG PO (21:49)
[2020-04-24 22:17] LABS: Differential Comment SCANNED
[2020-04-24 22:29] LABS: Probe Check PASS; Specimen Processing Control PASS
[2020-04-24] MEDS: 0.9% Normal Saline 1,000 ML 150 ML IV (23:48)
--- NOTE | 2020-04-24 23:59 | HP.PCM_ITS ---
Problem List (1) Diabetes Status: Chronic (2) Severe sepsis Status: Acute (3) Uncontrolled diabetes mellitus Status: Chronic Qualifiers: Diabetes mellitus type: type 2 Comment: No BG data for review. A1c 12.7 Discussed pathophysiology of diabetes with patient. Discussed need to control diet, weight, exercise, Discussed how to carb count, exercise plan, Reviewed BG monitoring ; how to accomplish and document. Discussed need for being an active participant in her diabetes care. She is ask to send me a copy of her insulin scale so I can adjust if needed when I am able to review her BG. I will place a CGM on her today so I can obtain her glucose readings in a timely manner. Reviewed need for daily skin care. Discussed need for routine visits and lab testing. Discussed routine eye exams Is on lai inhibitor Is on statin Reviewed insulin use and administration of. Will not check microalbumin until urine clear of blood. (4) HTN (hypertension) Status: Chronic Qualifiers: Hypertension type: essential hypertension Qualified Code(s): I10 - Essential (primary) hypertension Comment: BP 101/67. No change. (5) HLD (hyperlipidemia) Status: Chronic Qualifiers: Hyperlipidemia type: unspecified Qualified Code(s): E78.5 - Hyperlipidemia, unspecified Comment: On statin. Tolerating. no change. (6) Restless leg Status: Chronic (7) Hematuria Status: Chronic (8) Complicated UTI (urinary tract infection) Status: Acute (9) Urine retention Status: Chronic (10) History of colon cancer Status: Chronic (11) History of uterine cancer Status: Chronic (12) Tobacco dependence Status: Chronic (13) COPD (chronic obstructive pulmonary disease) Status: Chronic (14) Morbid obesity Status: Chronic (15) Bladder mass Status: Chronic (16) Neuropathy Status: Chronic (17) Pneumonia Status: Acute History of Present Illness Date of Admission: 04/24/20 Chief Complaint: Fever, cough, shortness of breath, lower urinary tract symptoms The patient is a 60 year old F with multiple comorbidities including COPD with 2 pack of smoking since teenage came to ED with fever, cough, decreased frequency of urination and shortness of breath on exertion. Patient has cough, productive in nature with greenish-yellow sputum, dyspnea on exertion and mild to moderate density for 2 to 3 months. She denies chest pain. She also reported headache repeated fever with chills. She denies any recent exposure to large gathering or crowd or suspected COVID-19 patient. She was also recently seen in ER on March 08, 2024 acute retention of urination with hematuria along with lower back pain. She has history of recurrent UTI, multiple time per year. At that time she was prescribed Keflex for 14 days and was sent home to follow with PCP. She has history of uterine cancer and CA colon in 2008 status post total hysterectomy and colectomy. She is not on chemoradiation. Recently for last few days, in first few hours in the morning, she she feels urgency with intermittent micturition, dribbling of urine and then later has decreased frequency of urination. She denied hematuria in last few weeks. [] On review of previous CT scan in January 2018, it is reported air in the evening bladder possible recent catheterization or possibility of UTI with gas producing bacteria. Mild diffuse mural thickening of the bladder with 8 mm focal density within posterior bladder lumen which might represent blood clot or soft tissue mass. She has never followed urologist or recent urinary bladder procedure or cystoscopy. No history of urinary stone, stricture. In ED, fever, temperature 102.3, heart rate 114/min, blood pressure 92/54, respiratory rate 22/min pulse ox 94% on room air. Patient lactic acid is normal. No leukocytosis but neutrophil 91%, lymphocyte 5.5%. BUN/creatinine on baseline 20/1.25. COVID-19 PCR negative. Chest x-ray individually reviewed and shows focal opacity in the left lingular lobe, possible atelectasis or pleural fold. Patient is being admitted in ICU with sepsis protocol. Was given Rocephin and Zithromax 1 dose in ED. Past Medical History Past Medical History (Chronic Problems): Chronic Problems (Last Updated 03/01/18 @ 14:55 by Carmelina Jarrett) Diabetes (Chronic) Uncontrolled diabetes mellitus (Chronic) No BG data for review. A1c 12.7 Discussed pathophysiology of diabetes with patient. Discussed need to control diet, weight, exercise, Discussed how to carb count, exercise plan, Reviewed BG monitoring ; how to accomplish and document. Discussed need for being an active participant in her diabetes care. She is ask to send me a copy of her insulin scale so I can adjust if needed when I am able to review her BG. I will place a CGM on her today so I can obtain her glucose readings in a timely manner. Reviewed need for daily skin care. Discussed need for routine visits and lab testing. Discussed routine eye exams Is on lai inhibitor Is on statin Reviewed insulin use and administration of. Will not check microalbumin until urine clear of blood. HTN (hypertension) (Chronic) BP 101/67. No change. HLD (hyperlipidemia) (Chronic) On statin. Tolerating. no change. Restless leg (Chronic) Hematuria (Chronic) Urine retention (Chronic) History of colon cancer (Chronic) History of uterine cancer (Chronic) Tobacco dependence (Chronic) COPD (chronic obstructive pulmonary disease) (Chronic) Morbid obesity (Chronic) Bladder mass (Chronic) Neuropathy (Chronic) Medical History: Medical History (Last Updated 03/01/18 @ 14:55 by Carmelina Jarrett) Anxiety and depression F41.9, F32.9 Arthritis M19.90 Breast lump N63.0 COPD (chronic obstructive pulmonary disease) J44.9 Cancer C80.1 Colon cancer C18.9 High cholesterol E78.00 Neuropathy G62.9 Recurrent UTI N39.0 Rheumatic fever I00 Rheumatoid arthritis M06.9 Seasonal allergies J30.2 Type 2 diabetes mellitus E11.9 Dx : 2006 Last exacerbation : DKA : never Hypoglycemic episode : never ER visit : never Uterine cancer C55 Vision problem H54.7 Vitamin deficiency E56.9 HTN (hypertension) I10 Allergies clindamycin Allergy (Verified 04/24/20 20:41) Swelling metformin Adverse Reaction (Verified 04/24/20 20:41) Nausea Home Medications: Ambulatory Orders Medication Instructions Recorded Ergocalciferol [Vitamin D] 50,000 unit PO MARTELL 02/28/14 Gabapentin [Neurontin] 600 mg PO QHS 02/28/14 Lisinopril [Zestril] 10 mg PO DAILY 02/28/14 Spironolactone [Aldactone] 50 mg PO DAILY 02/28/14 Duloxetine HCl 60 mg PO DAILY 02/17/18 Ropinirole HCl [Requip] 2 mg PO QHS 02/17/18 Gabapentin [Neurontin] 100 mg PO TID 3 Days #0 02/18/18 busPIRone [Buspar] 5 mg PO BID #60 tab 02/18/18 atorvastatin 80 mg tablet 80 mg PO QDAY 03/01/18 insulin glargine 100 unit/mL 48 unit SC QHS ml 03/01/18 subcutaneous solution pregabalin 100 mg capsule 100 mg PO TID 03/01/18 Surgical History: Surgical History (Last Updated 03/01/18 @ 14:41 by Carmelina Jarrett) Bowel obstruction K56.609 History of hysterectomy for cancer Z90.710, C80.1 tumer removed from colon Surgical History: - - colon resection for colon cancer by Dr. 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: - - uterine CA Lives: Spouse/ Significant Other Smoking Status: Current every day smoker - *Family History Maternal Family History: Family History (Last Updated 03/01/18 @ 14:43 by Carmelina Jarrett) Father Arthritis Cancer Diabetes Heart disease Hypertension Mother Hypertension Sister Arthritis Lupus Daughter Kidney stones History Items: Heart Disease Review of Systems Constitutional: Reports: Chills, Fever, Malaise, Weakness, Fatigue HEENT: Denies: Head Aches, Sinus Congestion, Sinus Drainage Cardiovascular: Denies: Chest Pain, Palpitations Respiratory: Reports: Cough, Shortness of Breath, Shortness of breath upon exertion, Sputum production. Denies: Pleuritic Pain, Shortness of breath at rest, Wheezing Gastrointestinal: Denies: Abdominal Pain, Constipation, Diarrhea, Nausea, Vomiting Genitourinary: Reports: Frequency, Hesitancy, Retention, Urgency. Denies: Dysuria Musculoskeletal: Reports: Back Pain, Joint Pain. Denies: Joint Tenderness Skin: Denies: Rash, Wounds Neurological: Denies: Numbness, Tingling, Focal weakness Psychiatric: Reports: Anxiety. Denies: Depression, Homicidal Ideations, Suicidal Ideations Hematologic/ Lymphatic: Denies: Easy Bruising, Easy Bleeding VTE Information - Inpt Only VTE Present on Admission: No VTE Mechan Device Prophylaxis: None VTE Pharm Prophylaxis ordered?: Yes Patient Problems: Active and Suspected Problems (Last Updated 03/01/18 @ 14:55 by Carmelina Jarrett) Severe sepsis (Acute) Pneumonia (Acute) - Physical Exam Vitals/I&O's: Vital Signs Temp Pulse Resp BP Pulse Ox 98.9 F 104 H 18 97/53 L 98 04/24/20 23:21 04/24/20 23:21 04/24/20 23:21 04/24/20 23:21 04/24/20 23:21 Oxygen Flow Rate (L/min) 2 Oxygen Delivery Method Nasal Cannula Weight: 207 lb 10.807 oz Body Mass Index (BMI) 36.8 Finger Stick Blood Glucose 218 Intake and Output for Last 24 Hours 04/22/20 04/23/20 04/24/20 23:59 23:59 23:59 Intake Total 1999 Output Total 0 / 0 Balance 1999 General: Alert, Oriented x3, Cooperative HEENT: Atraumatic, PERRLA, EOMI, Normocephalic Oral: No Gingival or Mucosal Lesions/ Ulcerations, Dry Mucosa Neck: Supple, No JVD, Negative Carotid Bruits Lungs: No rhonchi, No wheeze, No rales, Diminished - Air entry diminished in bilateral lung bases Cardiovascular: Regular Rhythm, Normal S1, Normal S2, No murmurs, Tachycardic Abdomen: Bowel Sounds Present, Soft, Non Tender, Non-Distended, - - : No suprapubic tenderness. No renal angle tenderness. Intermittent micturition with dribbling and thin stream of urine Extremities: Capillary Refill Less than 3 Seconds, Edema - Bilateral lower extremity edema Skin: No rashes, No breakdown Musculoskeletal: No Tenderness to Palpation of Joints or Extremities, Arthritic Changes Neurological: Cranial nerves II-XII grossly intact, Deep Tendon Reflexes 2+/4 and Symmetrical, Neuro grossly intact Psych/Mental Status: Normal Affect, Appropriate Laboratory Results 04/24/20 21:00: WBC 5.6, RBC 3.87 L, Hgb 11.1 L, Hct 34.4 L, MCV 88.9, MCH 28.7, MCHC 32.3, RDW Std Deviation 51.9 H, RDW Coeff of Mat 16.1 H, Plt Count 197, MPV 9.6, Immature Gran % (Auto) 0.200, Neut % (Auto) 91.0 H, Lymph % (Auto) 5.5 L, [place] % (Auto) 2.7, Eos % (Auto) 0.4, Baso % (Auto) 0.2, Absolute Neuts (auto) 5.1, Absolute Lymphs (auto) 0.31 L, Nucleated RBC % 0, Differential Comment SCANNED 04/24/20 21:00: PT 14.5, INR 1.2, APTT 28.4 04/24/20 21:00: Sodium 141, Potassium 4.1, Chloride 109 H, Carbon Dioxide 27.0, Anion Gap 5, BUN 20 H, Creatinine 1.25 H, Estim Creat Clear Calc 39.59, Est GFR (MDRD) Af Amer 56 L, Est GFR (MDRD) Non-Af 47 L, BUN/Creatinine Ratio 16.0, Glucose 90, Calcium 8.9, Total Bilirubin 0.60, AST 11 L, ALT 18, Alkaline Phosphatase 118 H, Total Protein 6.5, Albumin 3.0 L, Globulin 3.5, Albumin/Globulin Ratio 0.9 04/24/20 21:00: Lactic Acid 1.4 04/24/20 21:20: COVID-19 (YING) Negative Current Medications Sodium Chloride () 1,000 mls @ 150 mls/hr IV .Q6H40M TON Last Admin: 04/24/20 23:48 Dose: 150 mls/hr Documented by: Ceftriaxone Sodium (Rocephin) 1 gm in 50 mls @ 100 mls/hr IV X1 ONE Stop: 04/25/20 00:08 Azithromycin 500 mg/ Dextrose 255 mls @ 250 mls/hr IV X1 ONE Stop: 04/25/20 00:40 Assessment/Plan All Active Problems (Last Updated 03/01/18 @ 14:55 by Carmelina Jarrett) Severe sepsis (Acute) Pneumonia (Acute) Complicated UTI (urinary tract infection) (Acute) The patient is a 60 year old F with multiple comorbidities including COPD with 2 pack of smoking since teenage came to ED with fever, cough, decreased frequency of urination and shortness of breath on exertion with history of recurrent UTI and urinary retention, consistent with severe sepsis probably secondary to complicated UTI/pneumonia. 1. Severe sepsis (fever, tachycardia, hypotension, tachypnea) most probably s econdary to complicated UTI (with retention, recurrent UTI, abnormal CT scan in 2018) with possible pneumonia: Patient is being admitted in ICU. Patient is being resuscitated with IV fluid, normal saline 30 mL/kg as per sepsis protocol in first 4 hours. Will start on IV Zosyn. 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 Patient blood pressure is responding with IV fluid normal saline. Sepsis work-up with blood cultures x2, UA, urine culture, sputum culture, urinary antigens, MRSA nasal screen and respiratory panel. Patient previous urine culture on March 08, 2020 shows a streptococcus more than 100,000 colonies pansensitive. Kidneys and bladder ultrasound tomorrow a.m. If needed, will consult urologist as per finding of ultrasound. On CT scan in January 2018, it is reported air in the urinary bladder possible recent catheterization or possibility of UTI with gas producing bacteria. Mild diffuse mural thickening of the bladder with 8 mm focal density within posterior bladder lumen which might represent blood clot or soft tissue mass. 2. Suspected COVID-19 infection with history of COPD and possible pneumonia with history of smoking: Inflammatory markers are ordered. COVID-19 PCR negative. ID consult for further opinion. Bronchodilator, incentive spirometry and pep. Patient does not seem to be in COPD exacerbation with no hypoxia. Respiratory rate got better, 16 to 18/min. Patient does not entry processor and no PFT in our record 3. Diabetes mellitus type 2: Glucose is 90 in BMP. Lantus dose decreased to 35 units subcu at bedtime daily. Accu-Chek before meals and at bedtime with Humalog sliding scale insulin coverage. 4. History of colon and uterine cancer status post colectomy and hysterectomy with incisional hernia and partial small bowel obstruction in the past: It seems patient cancer is in remission and currently not on chemotherapy or radiation. 5. Other comorbidities include hypertension, dyslipidemia, restless leg syndrome, morbid obesity and peripheral neuropathy, DVT prophylaxis, high risk: Lovenox 40 mg subcu twice daily. Discontinue if platelet count drops less than 50,000 or hemoglobin less than 8 g% Living will/advanced directive/end of life care: Patient does not have living will or advanced directive. After discussion of procedures involved with full code, DNR CC arrest and DNR CC, the patient opted for full code Patient does want artificial life support including intubation, tube feed, ventilator and/chest compression, central venous catheter, vasopressor and DC shock if needed Total time spent in [id number] encounter in discussion of advanced directive 16 minutes. Laboratory Results 04/24/20 21:00: WBC 5.6, RBC 3.87 L, Hgb 11.1 L, Hct 34.4 L, MCV 88.9, MCH 28.7, MCHC 32.3, RDW Std Deviation 51.9 H, RDW Coeff of Mat 16.1 H, Plt Count 197, MPV 9.6, Immature Gran % (Auto) 0.200, Neut % (Auto) 91.0 H, Lymph % (Auto) 5.5 L, [place] % (Auto) 2.7, Eos % (Auto) 0.4, Baso % (Auto) 0.2, Absolute Neuts (auto) 5.1, Absolute Lymphs (auto) 0.31 L, Nucleated RBC % 0, Differential Comment SCANNED 04/24/20 21:00: PT 14.5, INR 1.2, APTT 28.4 04/24/20 21:00: Sodium 141, Potassium 4.1, Chloride 109 H, Carbon Dioxide 27.0, Anion Gap 5, BUN 20 H, Creatinine 1.25 H, Estim Creat Clear Calc 39.59, Est GFR (MDRD) Af Amer 56 L, Est GFR (MDRD) Non-Af 47 L, BUN/Creatinine Ratio 16.0, Glucose 90, Calcium 8.9, Total Bilirubin 0.60, AST 11 L, ALT 18, Alkaline Phosphatase 118 H, Total Protein 6.5, Albumin 3.0 L, Globulin 3.5, Albumin/Globulin Ratio 0.9 04/24/20 21:00: Lactic Acid 1.4 04/24/20 21:20: COVID-19 (YING) Negative Clinical Impression(s) from Imaging Studies Chest X-Ray 04/24/20 21:30 IMPRESSION: Focal opacity in the left lung along the left are bordered confluent with the left arm border and associated with a minimal linear opacity in the adjacent lung. Atelectasis, infiltrate or pleural pericardial scarring. This finding not present on prior exam of 10/02/2016. Inpatient E&M: 04503 Init Hosp L3 Procedures: 47108 Advncd Care Plan 30 Min
[2020-04-25] VITALS (28 sets, daily range): BP systolic 95–118; BP diastolic 47–66; PULSE 84–105; RESP 14–21; TEMP 36.3–37.2; O2SAT 89–100; BMI 37.1
[2020-04-25] MEDS: Ceftriaxone 1 GM/50 ML BAG IV (00:04)
[2020-04-25] MEDS: 0.9% Normal Saline 1,000 ML 999 ML IV ×2 (00:09→02:25)
[2020-04-25 02:31] LABS: Absolute Lymphocyte Count 0.92 X10^3/uL (0.83-4.51); Absolute Neutrophil Count 10.1 X10^3/uL (2.0-7.7); Basophil# 0.02 X10^3/uL; Basophil% 0.2 % (0-1); Eosinophil# 0.02 X10^3/uL; Eosinophils% 0.2 % (0-5); Hematocrit 32.7 % (37-47); Hemoglobin 10.3 g/dL (12.0-15.0); Lymphocyte # 0.92 X10^3/ul (4.0); Lymphocyte % 7.7 % (19-41); Mean Corp Hgb Conc 31.5 g/dL (32-36); Mean Corpuscular Hgb 28.6 pg (27.0-32.0); Mean Corpuscular Volume 90.8 fL (81-99); Mean Platelet Vol. 9.9 fl (6.2-12.0); Monocyte# 0.83 X10^3/uL; Monocyte% 6.9 % (0-10); NRBC Flagged by Analyzer 0 % (0-5); Neutrophil # 10.11 X10^3/uL (2.7-7.7); Neutrophil % 84.6 % (47-70); Platelet Count 197 K/mm3 (150-450); RBC Distribution Width CV 16.2 % (11.6-14.6); RBC Distribution Width SD 53.9 fl (35.1-43.9)
[2020-04-25] MEDS: oxyCODONE 5 MG Tablet PO (02:37)
[2020-04-25] MEDS: Enoxaparin 40 MG/0.4 ML Syringe SC ×2 (02:37→14:42)
[2020-04-25 02:44] LABS: Magnesium 1.1 mg/dL (1.6-2.6)
[2020-04-25 03:04] LABS: Fibrinogen 499 mg/dl (203-444)
[2020-04-25 03:09] LABS: D-Dimer Quantitative (DVT/PE) 1.35 FEU/ug/m (0.27-0.49)
[2020-04-25 03:10] LABS: Anion Gap 4 (5-15); BUN 21 mg/dL (7-18); BUN/Creat Ratio 12.7 RATIO (10-20); Calcium,Total 7.7 mg/dL (8.5-10.1); Chloride 113 mmol/L (98-107); Creatinine, Serum 1.65 mg/dL (0.55-1.02); EST Glomerular Filtration Rate 34 mL/min (>60); Est Glom Filt Rate - Afr Amer 41 mL/min (>60); Estimated Creatinine Clearance 29.99 ml/min; Glucose 152 mg/dL (74-106); Potassium 4.7 mmol/L (3.5-5.1); Sodium Level 143 mmol/L (136-145)
[2020-04-25 03:15] LABS: BNP,B-Type NATRIURETIC PEPTIDE 146.1 pg/mL (0-100)
[2020-04-25 03:18] LABS: CPK Total, Creatine Kinase 121 U/L (26-192); LDH 162 U/L (84-246)
[2020-04-25 03:24] LABS: Procalcitonin 7.69 ng/mL (0.00-0.09)
[2020-04-25] MEDS: 0.9% Normal Saline 1,000 ML 100 ML IV ×2 (03:37→13:00)
[2020-04-25 04:18] LABS: M R Staph aureus DNA By PCR Negative (Negative); Probe Check PASS; Specimen Processing Control PASS
[2020-04-25 04:24] LABS: Mucous, Urine 0 SEEN /hpf (<or=2+); Red Blood Cells-Urine 0 SEEN /hpf (0-5); Squamous Epithelial Cells - UA 0 SEEN /hpf (5-10)
[2020-04-25] MEDS: Gabapentin 100 MG Capsule PO ×2 (05:04→14:42)
[2020-04-25 05:45] LABS: Color, Urine Yellow (Yellow); Glucose, Dipstick Normal (Normal); Ketone-Dipstick Negative (Negative); Leukocyte Esterase-Dipstick 500 /ul (Negative); Nitrite-Dipstick Negative (Negative); Occult Blood-Urine 150 /ul (Negative); Protein-Dipstick 100 mg/dl (Negative); Urine Bilirubin Dipstick Negative (Negative); Urine Clarity Sl. Cloudy (Clear); Urine Urobilinogen Normal (Normal)
--- NOTE | 2020-04-25 05:55 | US_ITS ---
STUDY: RENAL ULTRASOUND - COMPLETE REASON FOR EXAM: Female, 60 years old. Complicated UTI, 8mm bladder mass seen on 2018 CT TECHNIQUE: Ultrasound evaluation of the kidneys was performed with real-time and static chen-scale imaging. COMPARISON: Prior abdomen and pelvic CT exam of 02/17/2018 FINDINGS: RIGHT KIDNEY: Normal location of the right kidney, which is normal in size. The right kidney measures 13.1 x 6.7 x 5.8 cm. There is a normal cortex of the right kidney. The renal cortex measures 1.5 cm. There is no right renal mass or cyst. There are no right renal calculi. There is no right hydronephrosis. DISTAL RIGHT URETER: There is no demonstrated right ureteral jet. LEFT KIDNEY: Normal location of the left kidney, which is normal in size. The left kidney measures 11.5 x 6.0 x 7.6 cm. There is a normal cortex of the left kidney. The renal cortex measures 2 cm. 1.5 cm cyst upper pole of the left kidney There are no left renal calculi. There is no left hydronephrosis. DISTAL LEFT URETER: There is no demonstrated left ureteral jet. BLADDER: Despite the fact that the patient''s catheter was clamped at 5:30 PM, the patient''s bladder remains completely empty with a ROBBINS type balloon catheter present. The study is inadequate for evaluation of a small bladder mass. US/Kidney and Bladder IMPRESSION: Normal size symmetric kidneys without hydronephrosis. 1.5 cm cyst of the upper pole of the left kidney unchanged from prior CT exam, no additional imaging recommendations. Despite the fact that the patient''s catheter was clamped at 5:30 PM today, the urinary bladder remains completely empty with urinary catheter present. Inadequate study for evaluation of bladder mass. Bladder ultrasound could be repeated with filling of the bladder under radiologist''s supervision. Electronically Signed: Torri Weber MD at 22:57 EDT , Service support ,
[2020-04-25 06:35] LABS: Bacteria 3+ /hpf (None Seen); White Blood Cells 25-50 SEEN /hpf (0-5)
[2020-04-25] MEDS: Ipratropium/Albuterol Sulfate 3 ML AMPUL.NEB INHALATION ×4 (07:11→20:04)
--- NOTE | 2020-04-25 07:13 | CON.PCM_ITS ---
Reason for Consult Date of Consultation: 04/25/20 Reason for Consultation: Severe sepsis History of Present Illness: The patient is a 60-year-old female, with a history as outlined below, who presented to the emergency department on April 24 with complaints of fevers, chills and cough. The patient was recently treated in February with Keflex for a urinary tract source of infection. The patient denies the presence of any sputum production. She does report having been diagnosed with COPD in the past. She denies the presence of dysuria or hematuria. On presentation to the emergency department, the patient was noted to be febrile with a temperature of 102.3 ?F. She was also tachycardic and tachypneic. Initial laboratory evaluation revealed no evidence of a leukocytosis. Coagulation profile was within normal limits. D-dimer was elevated at 1.35. Chemistry profile was notable for a creatinine of 1.25. Magnesium was low at 1.1. Procalcitonin was elevated to 7.69. Coronavirus PCR was negative. MRSA screen was negative. Urine analysis was negative for nitrites, positive for le ukocyte esterase with 3+ urine bacteria. Past Medical History Past Medical History (Chronic Problems): Chronic Problems (Last Updated 03/01/18 @ 14:55 by Carmelina Jarrett) Diabetes (Chronic) Uncontrolled diabetes mellitus (Chronic) No BG data for review. A1c 12.7 Discussed pathophysiology of diabetes with patient. Discussed need to control diet, weight, exercise, Discussed how to carb count, exercise plan, Reviewed BG monitoring ; how to accomplish and document. Discussed need for being an active participant in her diabetes ca re. She is ask to send me a copy of her insulin scale so I can adjust if needed when I am able to review her BG. I will place a CGM on her today so I can obtain her glucose readings in a timely manner. Reviewed need for daily skin care. Discussed need for routine visits and lab testing. Discussed routine eye exams Is on lai inhibitor Is on statin Reviewed insulin use and administration of. Will not check microalbumin until urine clear of blood. HTN (hypertension) (Chronic) BP 101/67. No change. HLD (hyperlipidemia) (Chronic) On statin. Tolerating. no change. Restless leg (Chronic) Hematuria (Chronic) Urine retention (Chronic) History of colon cancer (Chronic) History of uterine cancer (Chronic) Tobacco dependence (Chronic) COPD (chronic obstructive pulmonary disease) (Chronic) Morbid obesity (Chronic) Bladder mass (Chronic) Neuropathy (Chronic) Medical History: Medical History (Last Updated 03/01/18 @ 14:55 by Carmelina Jarrett) Anxiety and depression F41.9, F32.9 Arthritis M19.90 Breast lump N63.0 COPD (chronic obstructive pulmonary disease) J44.9 Cancer C80.1 Colon cancer C18.9 High cholesterol E78.00 Neuropathy G62.9 Recurrent UTI N39.0 Rheumatic fever I00 Rheumatoid arthritis M06.9 Seasonal allergies J30.2 Type 2 diabetes mellitus E11.9 Dx : 2005 Last exacerbation : DKA : never Hypoglycemic episode : never ER visit : never Uterine cancer C55 Vision problem H54.7 Vitamin deficiency E56.9 HTN (hypertension) I10 Allergies clindamycin Allergy (Verified 04/24/20 20:41) Swelling metformin Adverse Reaction (Verified 04/24/20 20:41) Nausea Home Medications: Ambulatory Orders Medication Instructions Recorded Ergocalciferol [Vitamin D] 50,000 unit PO MARTELL 02/28/14 Gabapentin [Neurontin] 600 mg PO QHS 02/28/14 Lisinopril [Zestril] 10 mg PO DAILY 02/28/14 Spironolactone [Aldactone] 50 mg PO DAILY 02/28/14 Duloxetine HCl 60 mg PO DAILY 02/17/18 Ropinirole HCl [Requip] 2 mg PO QHS 02/17/18 Gabapentin [Neurontin] 100 mg PO TID 3 Days #0 02/18/18 busPIRone [Buspar] 5 mg PO BID #60 tab 02/18/18 atorvastatin 80 mg tablet 80 mg PO QDAY 03/01/18 insulin glargine 100 unit/mL 48 unit SC QHS ml 03/01/18 subcutaneous solution pregabalin 100 mg capsule 100 mg PO TID 03/01/18 Cefdinir 300 mg PO BID #10 cap 04/26/20 Tamsulosin HCl 0.4 mg PO DAILY #30 cap 04/26/20 Surgical History: Surgical History (Last Updated 03/01/18 @ 14:41 by Carmelina Jarrett) Bowel obstruction K56.609 History of hysterectomy for cancer Z90.710, C80.1 tumer removed from colon Surgical History: - - colon resection for colon cancer by Dr. DUANE Beckwith with BSO for uterine cancer, abdominal laparotomy for lysis of adhesions for small bowel obstruction Psychiatric History: Anxiety, Depression [employer]IST History: - - uterine CA Lives: Spouse/ Significant Other Smoking Status: Current every day smoker Tobacco Use: Cigarettes - *Family History Maternal Family History: Family History (Last Updated 03/01/18 @ 14:43 by Carmelina Jarrett) Father Arthritis Cancer Diabetes Heart disease Hypertension Mother Hypertension Sister Arthritis Lupus Daughter Kidney stones History Items: Heart Disease Review of Systems Constitutional: Reports: Chills, Fever, Malaise Eyes: Denies: Blurred vision, Double vision HEENT: Denies: Head Aches, Sinus Congestion, Sinus Drainage Cardiovascular: Denies: Chest Pain, Palpitations Respiratory: Reports: Cough, Shortness of Breath. Denies: Sputum production Gastrointestinal: Denies: Abdominal Pain, Nausea, Vomiting Genitourinary: Reports: Frequency Musculoskeletal: Denies: Joint Pain, Joint Tenderness Skin: Denies: Rash, Wounds Neurological: Denies: Numbness, Tingling, Focal weakness Psychiatric: Denies: Anxiety, Depression, Homicidal Ideations, Suicidal Ideations Hematologic/ Lymphatic: Denies: Easy Bruising, Easy Bleeding Patient Problems: Active and Suspected Problems (Last Updated 03/01/18 @ 14:55 by Carmelina Jarrett) Severe sepsis (Acute) Pneumonia (Acute) Objective: The patient's most recent lab work, culture data and imaging studies have all been personally reviewed. - Physical Exam Vitals/I&O's: Vital Signs Temp Pulse Resp BP Pulse Ox 98.8 F 85 18 98/63 96 04/25/20 04:00 04/25/20 07:00 04/25/20 07:00 04/25/20 07:00 04/25/20 07:00 Oxygen Flow Rate (L/min) 2 Oxygen Delivery Method Nasal Cannula Weight: 209 lb 10.554 oz Body Mass Index (BMI) 37.1 Finger Stick Blood Glucose 218 Intake and Output for Last 24 Hours 04/23/20 04/24/20 04/25/20 23:59 23:59 23:59 Intake Total 1999 2549.25 / 2549.25 Output Total 0 / 0 550 / 550 Balance 1999. / 1998. General: Alert, Cooperative, No apparent distress, - - Sitting in bedside recliner. HEENT: Atraumatic, Normocephalic Oral: Moist Mucosa, No Gingival or Mucosal Lesions/ Ulcerations Neck: Supple, No Nodes, Trachea Midline Lungs: Normal air movement, No rhonchi, No wheeze, No rales Cardiovascular: Regular rate, Regular Rhythm Abdomen: Bowel Sounds Present, Soft, Non Tender, Obese Extremities: No clubbing, No cyanosis, No edema Skin: No breakdown Musculoskeletal: No Muscle Wasting Lymphatic: No Cervical, Supraclavicular, or Inguinal Adenopathy Neurological: Cranial nerves II-XII grossly intact, Neuro grossly intact Psych/Mental Status: Normal Affect, Appropriate Labs (Last 48 Hours) 04/24/20 04/24/20 04/24/20 00:00 21:00 21:00 WBC 5.6 RBC 3.87 L Hgb 11.1 L Hct 34.4 L MCV 88.9 MCH 28.7 MCHC 32.3 RDW Std Deviation 51.9 H RDW Coeff of Mat 16.1 H Plt Count 197 MPV 9.6 Immature Gran % (Auto) 0.200 Neut % (Auto) 91.0 H Lymph % (Auto) 5.5 L [place] % (Auto) 2.7 Eos % (Auto) 0.4 Baso % (Auto) 0.2 Absolute Neuts (auto) 5.1 Absolute Lymphs (auto) 0.31 L Nucleated RBC % 0 Differential Comment SCANNED PT 14.5 INR 1.2 APTT 28.4 Fibrinogen D-Dimer Quant (PE/DVT) Sodium Potassium Chloride Carbon Dioxide Anion Gap BUN Creatinine Estim Creat Clear Calc Est GFR (MDRD) Af Amer Est GFR (MDRD) Non-Af BUN/Creatinine Ratio Glucose Lactic Acid Calcium Magnesium Total Bilirubin AST ALT Alkaline Phosphatase Lactate Dehydrogenase Total Creatine Kinase C-React Prot Ext Range B-Natriuretic Peptide 146.1 H Total Protein Albumin Globulin Albumin/Globulin Ratio Procalcitonin Urine Color Urine Clarity Urine pH Ur Specific [place] Urine Protein Urine Glucose (UA) Urine Ketones Urine Occult Blood Urine Nitrite Urine Bilirubin Urine Urobilinogen Ur Leukocyte Esterase Urine RBC Urine WBC Ur Squamous Epith Cells Urine Bacteria Urine Mucus COVID-19 (YING) MRSA (PCR) 04/24/20 04/24/20 04/24/20 21:00 21:00 21:00 WBC RBC Hgb Hct MCV MCH MCHC RDW Std Deviation RDW Coeff of Mat Plt Count MPV Immature Gran % (Auto) Neut % (Auto) Lymph % (Auto) [place] % (Auto) Eos % (Auto) Baso % (Auto) Absolute Neuts (auto) Absolute Lymphs (auto) Nucleated RBC % Differential Comment PT INR APTT Fibrinogen D-Dimer Quant (PE/DVT) Sodium 141 Potassium 4.1 Chloride 109 H Carbon Dioxide 27.0 Anion Gap 5 BUN 20 H Creatinine 1.25 H Estim Creat Clear Calc 39.59 Est GFR (MDRD) Af Amer 56 L Est GFR (MDRD) Non-Af 47 L BUN/Creatinine Ratio 16.0 Glucose 90 Lactic Acid 1.4 Calcium 8.9 Magnesium Total Bilirubin 0.60 AST 11 L ALT 18 Alkaline Phosphatase 118 H Lactate Dehydrogenase 162 Total Creatine Kinase 121 C-React Prot Ext Range 63.90 H B-Natriuretic Peptide Total Protein 6.5 Albumin 3.0 L Globulin 3.5 Albumin/Globulin Ratio 0.9 Procalcitonin Urine Color Urine Clarity Urine pH Ur Specific [place] Urine Protein Urine Glucose (UA) Urine Ketones Urine Occult Blood Urine Nitrite Urine Bilirubin Urine Urobilinogen Ur Leukocyte Esterase Urine RBC Urine WBC Ur Squamous Epith Cells Urine Bacteria Urine Mucus COVID-19 (YING) MRSA (PCR) 04/24/20 04/24/20 04/25/20 21:00 21:20 02:15 WBC RBC Hgb Hct MCV MCH MCHC RDW Std Deviation RDW Coeff of Mat Plt Count MPV Immature Gran % (Auto) Neut % (Auto) Lymph % (Auto) [place] % (Auto) Eos % (Auto) Baso % (Auto) Absolute Neuts (auto) Absolute Lymphs (auto) Nucleated RBC % Differential Comment PT INR APTT Fibrinogen D-Dimer Quant (PE/DVT) Sodium Potassium Chloride Carbon Dioxide Anion Gap BUN Creatinine Estim Creat Clear Calc Est GFR (MDRD) Af Amer Est GFR (MDRD) Non-Af BUN/Creatinine Ratio Glucose Lactic Acid Calcium Magnesium 1.1 L Total Bilirubin AST ALT Alkaline Phosphatase Lactate Dehydrogenase Total Creatine Kinase C-React Prot Ext Range B-Natriuretic Peptide Total Protein Albumin Globulin Albumin/Globulin Ratio Procalcitonin Urine Color Urine Clarity Urine pH Ur Specific [place] Urine Protein Urine Glucose (UA) Urine Ketones Urine Occult Blood Urine Nitrite Urine Bilirubin Urine Urobilinogen Ur Leukocyte Esterase Urine RBC Urine WBC Ur Squamous Epith Cells Urine Bacteria Urine Mucus COVID-19 (YING) Negative MRSA (PCR) Negative 04/25/20 04/25/20 04/25/20 02:20 02:20 02:20 WBC 12.0 H RBC 3.60 L Hgb 10.3 L Hct 32.7 L MCV 90.8 MCH 28.6 MCHC 31.5 L RDW Std Deviation 53.9 H RDW Coeff of Mat 16.2 H Plt Count 197 MPV 9.9 Immature Gran % (Auto) 0.400 Neut % (Auto) 84.6 H Lymph % (Auto) 7.7 L [place] % (Auto) 6.9 Eos % (Auto) 0.2 Baso % (Auto) 0.2 Absolute Neuts (auto) 10.1 H Absolute Lymphs (auto) 0.92 Nucleated RBC % 0 Differential Comment PT INR APTT Fibrinogen 499 H D-Dimer Quant (PE/DVT) 1.35 H* Sodium Potassium Chloride Carbon Dioxide Anion Gap BUN Creatinine Estim Creat Clear Calc Est GFR (MDRD) Af Amer Est GFR (MDRD) Non-Af BUN/Creatinine Ratio Glucose Lactic Acid Calcium Magnesium Total Bilirubin AST ALT Alkaline Phosphatase Lactate Dehydrogenase Total Creatine Kinase C-React Prot Ext Range B-Natriuretic Peptide Total Protein Albumin Globulin Albumin/Globulin Ratio Procalcitonin 7.69 H Urine Color Urine Clarity Urine pH Ur Specific [place] Urine Protein Urine Glucose (UA) Urine Ketones Urine Occult Blood Urine Nitrite Urine Bilirubin Urine Urobilinogen Ur Leukocyte Esterase Urine RBC Urine WBC Ur Squamous Epith Cells Urine Bacteria Urine Mucus COVID-19 (YING) MRSA (PCR) 04/25/20 04/25/20 02:20 03:45 WBC RBC Hgb Hct MCV MCH MCHC RDW Std Deviation RDW Coeff of Mat Plt Count MPV Immature Gran % (Auto) Neut % (Auto) Lymph % (Auto) [place] % (Auto) Eos % (Auto) Baso % (Auto) Absolute Neuts (auto) Absolute Lymphs (auto) Nucleated RBC % Differential Comment PT INR APTT Fibrinogen D-Dimer Quant (PE/DVT) Sodium 143 Potassium 4.7 Chloride 113 H Carbon Dioxide 26.0 Anion Gap 4 L BUN 21 H Creatinine 1.65 H Estim Creat Clear Calc 29.99 Est GFR (MDRD) Af Amer 41 L Est GFR (MDRD) Non-Af 34 L BUN/Creatinine Ratio 12.7 Glucose 152 H Lactic Acid Calcium 7.7 L Magnesium Total Bilirubin AST ALT Alkaline Phosphatase Lactate Dehydrogenase Total Creatine Kinase C-React Prot Ext Range B-Natriuretic Peptide Total Protein Albumin Globulin Albumin/Globulin Ratio Procalcitonin Urine Color Yellow Urine Clarity Sl. Cloudy Urine pH 8.0 Ur Specific [place] 1.010 Urine Protein 100 H Urine Glucose (UA) Normal Urine Ketones Negative Urine Occult Blood 150 H Urine Nitrite Negative Urine Bilirubin Negative Urine Urobilinogen Normal Ur Leukocyte Esterase 500 H Urine RBC 0 SEEN Urine WBC 25-50 SEEN Ur Squamous Epith Cells 0 SEEN Urine Bacteria 3+ Urine Mucus 0 SEEN COVID-19 (YING) MRSA (PCR) Microbiology 04/25/20 03:45 Urine, Clean Catch Legionella Antigen - Final 04/25/20 03:45 Urine, Clean Catch Streptococcus pneumoniae Antigen (M - Final Clinical Impression(s) from Imaging Studies Chest X-Ray 04/24/20 21:30 IMPRESSION: Focal opacity in the left lung along the left are bordered confluent with the left arm border and associated with a minimal linear opacity in the adjacent lung. Atelectasis, infiltrate or pleural pericardial scarring. This finding not present on prior exam of 10/02/2016. Electronically Signed: Torri Weber MD at 22:09 EDT , Service support , Current Medications Acetaminophen (Tylenol) 650 mg PO Q6H PRN PRN PRN Reason: Pain Score 1-10/Temp > 100.7 F Al Hydroxide/Mg Hydroxide (Mylanta Ii) 30 ml PO Q6H PRN PRN PRN Reason: Gastric Burning Albuterol Sulfate (Ventolin Aerosols) 2.5 mg INHALATION Q2H PRN PRN PRN Reason: SOB/Wheezing Albuterol/Ipratropium (Duoneb) 3 ml INHALATION Q4H.RT TON Atorvastatin Calcium (Lipitor) 80 mg PO QHS TON Buspirone HCl (Buspar) 5 mg PO BID TON Duloxetine HCl (Cymbalta) 60 mg PO DAILY OTN Enoxaparin Sodium (Lovenox) 40 mg SC Q12H TON Last Admin: 04/25/20 02:37 Dose: 40 mg Documented by: Ergocalciferol (Vitamin D) 50,000 unit PO MARTELL TON Gabapentin (Neurontin) 100 mg PO BID@0600,1400 [facility] Last Admin: 04/25/20 05:04 Dose: 100 mg Documented by: Gabapentin (Neurontin) 600 mg PO QHS [facility] Guaifenesin (Mucinex) 1,200 mg PO BID [facility] Piperacillin Sod/Tazobactam (Sod 3.375 gm/ Sodium Chloride) 50 mls @ 12.5 mls/hr IV Q8 [facility] Last Admin: 04/25/20 03:33 Dose: 12.5 mls/hr Documented by: Sodium Chloride () 250 mls @ 15 mls/hr IV .[id number] PRN PRN Reason: Saline Flush Last Infusion: 04/25/20 06:56 Dose: 15 mls/hr Documented by: Sodium Chloride () 250 mls @ 15 mls/hr IV .[id number] PRN PRN Reason: Additional IVPB Infusion Sodium Chloride () 1,000 mls @ 100 mls/hr IV .Q10H [facility] Last Admin: 04/25/20 03:37 Dose: 100 mls/hr Documented by: Insulin Glargine (Lantus (Bkc)) 35 units SC QHS [facility] Morphine Sulfate () 2 mg IV Q3H PRN PRN PRN Reason: Pain Score 6-10/10 Nitroglycerin (Nitrostat) 0.4 mg SUBLINGUAL Q5M PRN PRN Reason: CARDIAC/CHEST PAIN Nutritional Formula (Lactose Free) (Glucerna Shake) 120 ml PO TIDCM [facility] Ondansetron HCl (Zofran) 4 mg IV Q8H PRN PRN PRN Reason: NAUSEA/VOMITING Oxycodone HCl (Oxyir) 5 mg PO Q4H PRN PRN PRN Reason: Pain Score 4-5/10 Last Admin: 04/25/20 02:37 Dose: 5 mg Documented by: Prochlorperazine Edisylate (Compazine Iv) 5 mg IV Q4H PRN PRN PRN Reason: Breakthrough Nausea/Vomiting Senna/Docusate Sodium (Senokot-S, Nicole-Colace) 2 tablet PO BID PRN PRN PRN Reason: Constipation Sodium Chloride () 10 - 40 ml IV UD PRN PRN Reason: SALINE FLUSH Assessment/Plan Active and Suspected Problems (Last Updated 03/01/18 @ 14:55 by Carmelina Jarrett) Severe sepsis (Acute) Pneumonia (Acute) RECOMMENDATIONS: 1. Continue empiric antimicrobial therapy per ID recommendations. 2. Coronavirus precautions can be discontinued from my perspective. 3. Wean supplemental oxygen to maintain saturations at or above 90%. 4. Encourage incentive spirometer use and mobilize patient as tolerated. IMPRESSIONS: 1. Severe sepsis Appears most likely secondary to urinary tract source of infection. Chest x-ray was not overtly concerning for my perspective for pneumonia. Coronavirus testing was negative. Isolation precautions can be discontinued from my perspective. Recommend continuing empiric antimicrobials per ID recommendations while awaiting finalized infectious work-up. The patient has been adequately volume resuscitated and remains hemodynamically stable. 2. Obesity/diabetes mellitus/hypertension/hyperlipidemia Complicates care, management, recovery and prognosis. Recommend holding lisinopril until renal function improves. Continue the remainder of the patient's home medications. This note was generated with [email or web address] dictation software. It may contain incorrect words, spelling, and punctuation that were not noted in checking the note before signing. Inpatient E&M: 59121 Init Hosp L3
[2020-04-25] MEDS: busPIRone 5 MG Tablet PO ×2 (08:21→21:47)
[2020-04-25] MEDS: guaiFENesin 1,200 MG Tablet 1200 MG PO ×2 (08:21→21:49)
[2020-04-25] MEDS: DULoxetine Hcl 60 MG Capsule PO (08:21)
--- NOTE | 2020-04-25 08:56 | CON.PCM_ITS ---
Reason for Consult: Sepsis Consulted by: Dr. Munoz History of Present Illness: The patient is a 60 year old F [] This is a 60-year-old white female with multiple comorbidities including longstanding diabetes mellitus, COPD with extensive history of tobacco abuse, hypertension and dyslipidemia who presents with acute onset of chills and fever with concern of sepsis. Patient currently in the ICU bed 7, patient is responsive on nasal cannula O2. Currently has a Gaffney catheter in place. Patient had a Gaffney catheter placed upon admission last evening. She does state of some difficulty with urination the past 24-48 hrs. Currently on Zosyn empirically. COVID-19 test negative. Chest x-ray report reviewed. Microbiological data pending. Patient denies any gastrointestinal distress. She does state some dyspnea with activity which is her baseline. - Medical History Past Medical History (Chronic Problems): Chronic Problems (Last Updated 03/01/18 @ 14:55 by Carmelina Jarrett) Diabetes (Chronic) Uncontrolled diabetes mellitus (Chronic) No BG data for review. A1c 12.7 Discussed pathophysiology of diabetes with patient. Discussed need to control diet, weight, exercise, Discussed how to carb count, exercise plan, Reviewed BG monitoring ; how to accomplish and document. Discussed need for being an active participant in her diabetes care. She is ask to send me a copy of her insulin scale so I can adjust if needed when I am able to review her BG. I will place a CGM on her today so I can obtain her glucose readings in a timely manner. Reviewed need for daily skin care. Discussed need for routine visits and lab testing. Discussed routine eye exams Is on lai inhibitor Is on statin Reviewed insulin use and administration of. Will not check microalbumin until urine clear of blood. HTN (hypertension) (Chronic) BP 101/67. No change. HLD (hyperlipidemia) (Chronic) On statin. Tolerating. no change. Restless leg (Chronic) Hematuria (Chronic) Urine retention (Chronic) History of colon cancer (Chronic) History of uterine cancer (Chronic) Tobacco dependence (Chronic) COPD (chronic obstructive pulmonary disease) (Chronic) Morbid obesity (Chronic) Bladder mass (Chronic) Neuropathy (Chronic) Allergies/Adverse Reactions: Allergies clindamycin Allergy (Verified 04/24/20 20:41) Swelling metformin Adverse Reaction (Verified 04/24/20 20:41) Nausea Home Medications: Ambulatory Orders Medication Instructions Recorded Ergocalciferol [Vitamin D] 50,000 unit PO MARTELL 02/28/14 Gabapentin [Neurontin] 600 mg PO QHS 02/28/14 Lisinopril [Zestril] 10 mg PO DAILY 02/28/14 Spironolactone [Aldactone] 50 mg PO DAILY 02/28/14 Duloxetine HCl 60 mg PO DAILY 02/17/18 Ropinirole HCl [Requip] 2 mg PO QHS 02/17/18 Gabapentin [Neurontin] 100 mg PO TID 3 Days #0 02/18/18 busPIRone [Buspar] 5 mg PO BID #60 tab 02/18/18 atorvastatin 80 mg tablet 80 mg PO QDAY 03/01/18 insulin glargine 100 unit/mL 48 unit SC QHS ml 03/01/18 subcutaneous solution pregabalin 100 mg capsule 100 mg PO TID 03/01/18 Vital Signs Temp Pulse Resp BP Pulse Ox 97.3 F L 84 18 102/64 97 04/25/20 08:00 04/25/20 08:09 04/25/20 08:00 04/25/20 08:00 04/25/20 08:00 Oxygen Flow Rate (L/min) 2 Oxygen Delivery Method Nasal Cannula Weight: 95.1 kg Body Mass Index (BMI) 37.1 Finger Stick Blood Glucose 218 Alert responsive does not appear toxic lungs are clear heart exam S1-S2 abdomen is obese but soft. Gaffney catheter is in place Microbiology Past 72 Hours 04/25/20 03:45 Legionella Antigen - Final Urine, Clean Catch 04/25/20 03:45 Streptococcus pneumoniae Antigen (M - Final Urine, Clean Catch Laboratory Tests Past 24 Hrs 04/24/20 04/24/20 04/24/20 00:00 21:00 21:00 WBC 5.6 RBC 3.87 L Hgb 11.1 L Hct 34.4 L MCV 88.9 MCH 28.7 MCHC 32.3 RDW Std Deviation 51.9 H RDW Coeff of Mat 16.1 H Plt Count 197 MPV 9.6 Immature Gran % (Auto) 0.200 Neut % (Auto) 91.0 H Lymph % (Auto) 5.5 L [place] % (Auto) 2.7 Eos % (Auto) 0.4 Baso % (Auto) 0.2 Absolute Neuts (auto) 5.1 Absolute Lymphs (auto) 0.31 L Nucleated RBC % 0 Differential Comment SCANNED PT 14.5 INR 1.2 APTT 28.4 Fibrinogen D-Dimer Quant (PE/DVT) Sodium Potassium Chloride Carbon Dioxide Anion Gap BUN Creatinine Estim Creat Clear Calc Est GFR (MDRD) Af Amer Est GFR (MDRD) Non-Af BUN/Creatinine Ratio Glucose Lactic Acid Calcium Magnesium Total Bilirubin AST ALT Alkaline Phosphatase Lactate Dehydrogenase Total Creatine Kinase C-React Prot Ext Range B-Natriuretic Peptide 146.1 H Total Protein Albumin Globulin Albumin/Globulin Ratio Procalcitonin Urine Color Urine Clarity Urine pH Ur Specific [place] Urine Protein Urine Glucose (UA) Urine Ketones Urine Occult Blood Urine Nitrite Urine Bilirubin Urine Urobilinogen Ur Leukocyte Esterase Urine RBC Urine WBC Ur Squamous Epith Cells Urine Bacteria Urine Mucus COVID-19 (YING) MRSA (PCR) 04/24/20 04/24/20 04/24/20 21:00 21:00 21:00 WBC RBC Hgb Hct MCV MCH MCHC RDW Std Deviation RDW Coeff of Mat Plt Count MPV Immature Gran % (Auto) Neut % (Auto) Lymph % (Auto) [place] % (Auto) Eos % (Auto) Baso % (Auto) Absolute Neuts (auto) Absolute Lymphs (auto) Nucleated RBC % Differential Comment PT INR APTT Fibrinogen D-Dimer Quant (PE/DVT) Sodium 141 Potassium 4.1 Chloride 109 H Carbon Dioxide 27.0 Anion Gap 5 BUN 20 H Creatinine 1.25 H Estim Creat Clear Calc 39.59 Est GFR (MDRD) Af Amer 56 L Est GFR (MDRD) Non-Af 47 L BUN/Creatinine Ratio 16.0 Glucose 90 Lactic Acid 1.4 Calcium 8.9 Magnesium Total Bilirubin 0.60 AST 11 L ALT 18 Alkaline Phosphatase 118 H Lactate Dehydrogenase 162 Total Creatine Kinase 121 C-React Prot Ext Range 63.90 H B-Natriuretic Peptide Total Protein 6.5 Albumin 3.0 L Globulin 3.5 Albumin/Globulin Ratio 0.9 Procalcitonin Urine Color Urine Clarity Urine pH Ur Specific [place] Urine Protein Urine Glucose (UA) Urine Ketones Urine Occult Blood Urine Nitrite Urine Bilirubin Urine Urobilinogen Ur Leukocyte Esterase Urine RBC Urine WBC Ur Squamous Epith Cells Urine Bacteria Urine Mucus COVID-19 (YING) MRSA (PCR) 04/24/20 04/24/20 04/25/20 21:00 21:20 02:15 WBC RBC Hgb Hct MCV MCH MCHC RDW Std Deviation RDW Coeff of Mat Plt Count MPV Immature Gran % (Auto) Neut % (Auto) Lymph % (Auto) [place] % (Auto) Eos % (Auto) Baso % (Auto) Absolute Neuts (auto) Absolute Lymphs (auto) Nucleated RBC % Differential Comment PT INR APTT Fibrinogen D-Dimer Quant (PE/DVT) Sodium Potassium Chloride Carbon Dioxide Anion Gap BUN Creatinine Estim Creat Clear Calc Est GFR (MDRD) Af Amer Est GFR (MDRD) Non-Af BUN/Creatinine Ratio Glucose Lactic Acid Calcium Magnesium 1.1 L Total Bilirubin AST ALT Alkaline Phosphatase Lactate Dehydrogenase Total Creatine Kinase C-React Prot Ext Range B-Natriuretic Peptide Total Protein Albumin Globulin Albumin/Globulin Ratio Procalcitonin Urine Color Urine Clarity Urine pH Ur Specific [place] Urine Protein Urine Glucose (UA) Urine Ketones Urine Occult Blood Urine Nitrite Urine Bilirubin Urine Urobilinogen Ur Leukocyte Esterase Urine RBC Urine WBC Ur Squamous Epith Cells Urine Bacteria Urine Mucus COVID-19 (YING) Negative MRSA (PCR) Negative 04/25/20 04/25/20 04/25/20 02:20 02:20 02:20 WBC 12.0 H RBC 3.60 L Hgb 10.3 L Hct 32.7 L MCV 90.8 MCH 28.6 MCHC 31.5 L RDW Std Deviation 53.9 H RDW Coeff of Mat 16.2 H Plt Count 197 MPV 9.9 Immature Gran % (Auto) 0.400 Neut % (Auto) 84.6 H Lymph % (Auto) 7.7 L [place] % (Auto) 6.9 Eos % (Auto) 0.2 Baso % (Auto) 0.2 Absolute Neuts (auto) 10.1 H Absolute Lymphs (auto) 0.92 Nucleated RBC % 0 Differential Comment PT INR APTT Fibrinogen 499 H D-Dimer Quant (PE/DVT) 1.35 H* Sodium Potassium Chloride Carbon Dioxide Anion Gap BUN Creatinine Estim Creat Clear Calc Est GFR (MDRD) Af Amer Est GFR (MDRD) Non-Af BUN/Creatinine Ratio Glucose Lactic Acid Calcium Magnesium Total Bilirubin AST ALT Alkaline Phosphatase Lactate Dehydrogenase Total Creatine Kinase C-React Prot Ext Range B-Natriuretic Peptide Total Protein Albumin Globulin Albumin/Globulin Ratio Procalcitonin 7.69 H Urine Color Urine Clarity Urine pH Ur Specific [place] Urine Protein Urine Glucose (UA) Urine Ketones Urine Occult Blood Urine Nitrite Urine Bilirubin Urine Urobilinogen Ur Leukocyte Esterase Urine RBC Urine WBC Ur Squamous Epith Cells Urine Bacteria Urine Mucus COVID-19 (YING) MRSA (PCR) 04/25/20 04/25/20 02:20 03:45 WBC RBC Hgb Hct MCV MCH MCHC RDW Std Deviation RDW Coeff of Mat Plt Count MPV Immature Gran % (Auto) Neut % (Auto) Lymph % (Auto) [place] % (Auto) Eos % (Auto) Baso % (Auto) Absolute Neuts (auto) Absolute Lymphs (auto) Nucleated RBC % Differential Comment PT INR APTT Fibrinogen D-Dimer Quant (PE/DVT) Sodium 143 Potassium 4.7 Chloride 113 H Carbon Dioxide 26.0 Anion Gap 4 L BUN 21 H Creatinine 1.65 H Estim Creat Clear Calc 29.99 Est GFR (MDRD) Af Amer 41 L Est GFR (MDRD) Non-Af 34 L BUN/Creatinine Ratio 12.7 Glucose 152 H Lactic Acid Calcium 7.7 L Magnesium Total Bilirubin AST ALT Alkaline Phosphatase Lactate Dehydrogenase Total Creatine Kinase C-React Prot Ext Range B-Natriuretic Peptide Total Protein Albumin Globulin Albumin/Globulin Ratio Procalcitonin Urine Color Yellow Urine Clarity Sl. Cloudy Urine pH 8.0 Ur Specific [place] 1.010 Urine Protein 100 H Urine Glucose (UA) Normal Urine Ketones Negative Urine Occult Blood 150 H Urine Nitrite Negative Urine Bilirubin Negative Urine Urobilinogen Normal Ur Leukocyte Esterase 500 H Urine RBC 0 SEEN Urine WBC 25-50 SEEN Ur Squamous Epith Cells 0 SEEN Urine Bacteria 3+ Urine Mucus 0 SEEN COVID-19 (YING) MRSA (PCR) - Other Studies Radiology: [] Other Studies: [] Route of nutrition/ use of supplements: [] Nutritional Intake: [] IV Site: [] Gaffney Catheter: [] - Assessment/Plan Antibiotics: [] Assessment/Plan: [] Active and Suspected Problems (Last Updated 03/01/18 @ 14:55 by Carmelina Jarrett) Severe sepsis (Acute) Pneumonia (Acute) Sepsis on presentation concern of possible source. Microbiological data pending. At this point continue Zosyn. Okay to discontinue isolation. Hopefully we can remove the Gaffney catheter in the next [address] with Dr. Vance critical care physician.
--- NOTE | 2020-04-25 09:25 | CASEMGMT ---
RN CM Assessment Note Intro role of CM to patient in room. She is sitting in chair, awake and alert, and able to participate in assessment. Demographics verified. Pt states she is independent @ home, does not use DME. States she needs to schedule a sleep study to eval for Cpap. No needs identified for discharge by patient. Presentation: fever, congestion, cough Diagnosis: Sepsis, UTI. COVID neg PMH: diabetes, HTN, COPD PCP: Dr. Borges Specialists: none Insurance: [employer] [facility] Preferred Pharmacy: [facility] Prescription Benefit: yes LNOK: Daughter Amber Hernandez Living Arrangements: Lives independently in own one story home. No care needs per patient. She is independent in ADL. Tranportation: drives DME: none. HHC: none SNF: none Patient DC Goals: Home DC Plan: anticipate home on discharge. Pt is currently 97% on 2L NC-anticipate can wean to RA prior to dc. Pt updated to contact CM for any concerns/needs that may arise. Shaan ADHIKARI RN ACM
--- NOTE | 2020-04-25 11:42 | PN_ITS ---
Patient Problems: Active and Suspected Problems (Last Updated 03/01/18 @ 14:55 by Carmelina Jarrett) Severe sepsis (Acute) Pneumonia (Acute) Subjective: patient seen and examined. She was admitted with a complaint of fever, cough, shortness of breath and lower urinary symptoms. She is being managed for sepsis due to UTI. Call with test done was negative. Patient feels much better this morning. She denies fever, chills, nausea, vomiting, diarrhea or burning with urination. Review of systems otherwise negative. She has remained hemodynamically stable. Creatinine is trended up to 1.65. BC has trended up to 12 and procalcitonin was elevated at 7.69 Vitals/I&O's: Vital Signs Temp Pulse Resp BP Pulse Ox 97.8 F 90 17 118/60 93 04/25/20 10:49 04/25/20 10:49 04/25/20 10:49 04/25/20 10:49 04/25/20 10:49 Oxygen Flow Rate (L/min) 2 Oxygen Delivery Method Nasal Cannula Weight: 209 lb 10.554 oz Body Mass Index (BMI) 37.1 Finger Stick Blood Glucose 218 Intake and Output for Last 24 Hours 04/23/20 04/24/20 04/25/20 23:59 23:59 23:59 Intake Total 1999 2599.25 / 2599.25 Output Total 0 / 0 550 / 550 Balance 1999 2049.25 / 2049.25 General: Alert, Oriented x3, Cooperative, No apparent distress HEENT: Atraumatic, PERRLA, EOMI, Normocephalic Oral: Dry Mucosa Neck: Supple, No JVD, Negative Carotid Bruits Lungs: Clear to auscultation, Normal air movement, No rhonchi, No wheeze, - - on 2L of oxygen. Cardiovascular: Regular rate, Regular Rhythm, Normal S1, Normal S2, No murmurs Abdomen: Bowel Sounds Present, Soft, Non Tender, Non-Distended, No Hepato- splenomegaly Extremities: No clubbing, No cyanosis, No edema, Capillary Refill Less than 3 Seconds Skin: No rashes, No breakdown Musculoskeletal: No Tenderness to Palpation of Joints or Extremities Lymphatic: No Cervical, Supraclavicular, or Inguinal Adenopathy Neurological: Cranial nerves II-XII grossly intact, Neuro grossly intact, Motor Exam 5/5 strength throughout Psych/Mental Status: Normal Affect, Appropriate, Alert and oriented to time, place, person, mood and affect Microbiology Past 72 Hours 04/25/20 03:45 Urine, Clean Catch Legionella Antigen - Final 04/25/20 03:45 Urine, Clean Catch Streptococcus pneumoniae Antigen (M - Final Laboratory Results 04/24/20 00:00: B-Natriuretic Peptide 146.1 H 04/24/20 21:00: WBC 5.6, RBC 3.87 L, Hgb 11.1 L, Hct 34.4 L, MCV 88.9, MCH 28.7, MCHC 32.3, RDW Std Deviation 51.9 H, RDW Coeff of Mat 16.1 H, Plt Count 197, MPV 9.6, Immature Gran % (Auto) 0.200, Neut % (Auto) 91.0 H, Lymph % (Auto) 5.5 L, [place] % (Auto) 2.7, Eos % (Auto) 0.4, Baso % (Auto) 0.2, Absolute Neuts (auto) 5.1, Absolute Lymphs (auto) 0.31 L, Nucleated RBC % 0, Differential Comment SCANNED 04/24/20 21:00: PT 14.5, INR 1.2, APTT 28.4 04/24/20 21:00: Sodium 141, Potassium 4.1, Chloride 109 H, Carbon Dioxide 27.0, Anion Gap 5, BUN 20 H, Creatinine 1.25 H, Estim Creat Clear Calc 39.59, Est GFR (MDRD) Af Amer 56 L, Est GFR (MDRD) Non-Af 47 L, BUN/Creatinine Ratio 16.0, Glucose 90, Calcium 8.9, Total Bilirubin 0.60, AST 11 L, ALT 18, Alkaline Phosphatase 118 H, Total Protein 6.5, Albumin 3.0 L, Globulin 3.5, Albumin/Globulin Ratio 0.9 04/24/20 21:00: Lactic Acid 1.4 04/24/20 21:00: Lactate Dehydrogenase 162, Total Creatine Kinase 121, C-React Prot Ext Range 63.90 H 04/24/20 21:00: Magnesium 1.1 L 04/24/20 21:20: COVID-19 (YING) Negative 04/25/20 02:15: MRSA (PCR) Negative 04/25/20 02:20: Fibrinogen 499 H, D-Dimer Quant (PE/DVT) 1.35 H* 04/25/20 02:20: Procalcitonin 7.69 H 04/25/20 02:20: WBC 12.0 H, RBC 3.60 L, Hgb 10.3 L, Hct 32.7 L, MCV 90.8, MCH 28.6, MCHC 31.5 L, RDW Std Deviation 53.9 H, RDW Coeff of Mat 16.2 H, Plt Count 197, MPV 9.9, Immature Gran % (Auto) 0.400, Neut % (Auto) 84.6 H, Lymph % (Auto) 7.7 L, [place] % (Auto) 6.9, Eos % (Auto) 0.2, Baso % (Auto) 0.2, Absolute Neuts (auto) 10.1 H, Absolute Lymphs (auto) 0.92, Nucleated RBC % 0 04/25/20 02:20: Sodium 143, Potassium 4.7, Chloride 113 H, Carbon Dioxide 26.0, Anion Gap 4 L, BUN 21 H, Creatinine 1.65 H, Estim Creat Clear Calc 29.99, Est GFR (MDRD) Af Amer 41 L, Est GFR (MDRD) Non-Af 34 L, BUN/Creatinine Ratio 12.7, Glucose 152 H, Calcium 7.7 L 04/25/20 03:45: Urine Color Yellow, Urine Clarity Sl. Cloudy, Urine pH 8.0, Ur Specific [place] 1.010, Urine Protein 100 H, Urine Glucose (UA) Normal, Urine Ketones Negative, Urine Occult Blood 150 H, Urine Nitrite Negative, Urine Bilirubin Negative, Urine Urobilinogen Normal, Ur Leukocyte Esterase 500 H, Urine RBC 0 SEEN, Urine WBC 25-50 SEEN, Ur Squamous Epith Cells 0 SEEN, Urine Bacteria 3+, Urine Mucus 0 SEEN Diagnostic Data Chest X-Ray 04/24/20 21:30 IMPRESSION: Focal opacity in the left lung along the left are bordered confluent with the left arm border and associated with a minimal linear opacity in the adjacent lung. Atelectasis, infiltrate or pleural pericardial scarring. This finding not present on prior exam of 10/02/2016. Electronically Signed: Torri Weber MD at 22:09 EDT , Service support , Current Medications Acetaminophen (Tylenol) 650 mg PO Q6H PRN PRN PRN Reason: Pain Score 1-10/Temp > 100.7 F Al Hydroxide/Mg Hydroxide (Mylanta Ii) 30 ml PO Q6H PRN PRN PRN Reason: Gastric Burning Albuterol Sulfate (Ventolin Aerosols) 2.5 mg INHALATION Q2H PRN PRN PRN Reason: SOB/Wheezing Albuterol/Ipratropium (Duoneb) 3 ml INHALATION Q4H.RT [facility] Last Admin: 04/25/20 07:11 Dose: 3 ml Documented by: Atorvastatin Calcium (Lipitor) 80 mg PO QHS [facility] Buspirone HCl (Buspar) 5 mg PO BID [facility] Last Admin: 04/25/20 08:21 Dose: 5 mg Documented by: Duloxetine HCl (Cymbalta) 60 mg PO DAILY [facility] Last Admin: 04/25/20 08:21 Dose: 60 mg Documented by: Enoxaparin Sodium (Lovenox) 40 mg SC Q12H [facility] Last Admin: 04/25/20 02:37 Dose: 40 mg Documented by: Ergocalciferol (Vitamin D) 50,000 unit PO MARTELL [facility] Gabapentin (Neurontin) 100 mg PO BID@0600,1400 [facility] Last Admin: 04/25/20 05:04 Dose: 100 mg Documented by: Gabapentin (Neurontin) 600 mg PO QHS [facility] Guaifenesin (Mucinex) 1,200 mg PO BID [facility] Last Admin: 04/25/20 08:21 Dose: 1,200 mg Documented by: Piperacillin Sod/Tazobactam (Sod 3.375 gm/ Sodium Chloride) 50 mls @ 12.5 mls/hr IV Q8 [facility] Last Infusion: 04/25/20 07:35 Dose: Infused Documented by: Sodium Chloride () 250 mls @ 15 mls/hr IV .[id number] PRN PRN Reason: Saline Flush Last Infusion: 04/25/20 06:56 Dose: 15 mls/hr Documented by: Sodium Chloride () 250 mls @ 15 mls/hr IV .[id number] PRN PRN Reason: Additional IVPB Infusion Sodium Chloride () 1,000 mls @ 100 mls/hr IV .Q10H [facility] Last Admin: 04/25/20 03:37 Dose: 100 mls/hr Documented by: Insulin Glargine (Lantus (Bkc)) 35 units SC QHS TON Nitroglycerin (Nitrostat) 0.4 mg SUBLINGUAL Q5M PRN PRN Reason: CARDIAC/CHEST PAIN Nutritional Formula (Lactose Free) (Glucerna Shake) 120 ml PO TIDCM [facility] Last Admin: 04/25/20 08:33 Dose: Not Given Documented by: Ondansetron HCl (Zofran) 4 mg IV Q8H PRN PRN PRN Reason: NAUSEA/VOMITING Prochlorperazine Edisylate (Compazine Iv) 5 mg IV Q4H PRN PRN PRN Reason: Breakthrough Nausea/Vomiting Senna/Docusate Sodium (Senokot-S, Nicole-Colace) 2 tablet PO BID PRN PRN PRN Reason: Constipation Sodium Chloride () 10 - 40 ml IV UD PRN PRN Reason: SALINE FLUSH STROKE Vital Signs/Narrative: Vital Signs Temp Pulse Resp BP BP Pulse Ox 04/25/20 10:49 97.8 F 90 17 118/60 93 04/25/20 08:09 84 04/25/20 08:00 97.3 F L 87 18 102/64 97 Medical Necessity - Tobacco Use Smoking Status: Current every day smoker Tobacco Use: Cigarettes Assessment/Plan All Active Problems (Last Updated 03/01/18 @ 14:55 by Carmelina Jarrett) Severe sepsis (Acute) Pneumonia (Acute) Complicated UTI (urinary tract infection) (Acute) # Severe sepsis due to UTI and pneumonia * SIRS criteria -1/4 (leucocytosis) * on IV vancomycin and zosyn * covid test was negative * hydrated with IVF * critical care on board * blood cultures and urine culture pending * urine for strep and legionella negative * COVID test negative. * kidney and bladder USG pending * CT of the abdomen and pelvis (01/2018):possible blood clot or soft tissue mass in the posterior bladder lumen. Renal USG pending. #Type 2 diabetes emllitus: on lantus. ISS. accuchecks ACHS #MARIANA: Creatinine is up to 1.65 today. Was 1.25 on admission. Continue gentle hydration with IV fluids #Hypertension: lisinopril on hold o/a of MARIANA #Hyperlipidemia: on statin History of colon cancer and uterine cancer: Status post colectomy and hyst erectomy. stable DVT prophylaxis: lovenox Inpatient E&M: [id number] [facility] [[email or web address]] Hosp L3
[2020-04-25 13:00] LABS: Bedside Glucose 121 mg/dL (70-110)
[2020-04-25] MEDS: Glucerna Shake 120 ML LIQUID PO (13:00)
[2020-04-25] MEDS: Acetaminophen 325 MG Tablet 650 MG PO (14:42)
[2020-04-25 17:46] LABS: Bedside Glucose 129 mg/dL (70-110)
[2020-04-25] MEDS: Pramipexole Di-HCl 1 MG Tablet PO (17:56)
[2020-04-25] MEDS: Gabapentin 600 MG Tablet PO (21:49)
[2020-04-25] MEDS: Atorvastatin Calcium 80 MG Tablet PO (21:49)
[2020-04-25 23:45] LABS: Bedside Glucose 141 mg/dL (70-110)
[2020-04-26 02:38] VITALS: BP 113/59; PULSE 97; RESP 12; TEMP 36.5; O2SAT 98
[2020-04-26] MEDS: Acetaminophen 325 MG Tablet 650 MG PO (02:44)
[2020-04-26] MEDS: Enoxaparin 40 MG/0.4 ML Syringe SC (02:45)
[2020-04-26] MEDS: 0.9% Normal Saline 1,000 ML 100 ML IV (02:48)
[2020-04-26 03:03] VITALS: PULSE 95
[2020-04-26 03:06] VITALS: PULSE 96; RESP 20
[2020-04-26] MEDS: Ipratropium/Albuterol Sulfate 3 ML AMPUL.NEB INHALATION ×2 (03:06→07:15)
[2020-04-26] MEDS: Gabapentin 100 MG Capsule PO (05:10)
[2020-04-26 06:48] VITALS: PULSE 93
[2020-04-26 07:15] VITALS: PULSE 94; RESP 16; O2SAT 93
[2020-04-26 07:24] LABS: Absolute Lymphocyte Count 1.06 X10^3/uL (0.83-4.51); Absolute Neutrophil Count 7.8 X10^3/uL (2.0-7.7); Basophil# 0.01 X10^3/uL; Basophil% 0.1 % (0-1); Eosinophil# 0.06 X10^3/uL; Eosinophils% 0.6 % (0-5); Hematocrit 30.9 % (37-47); Hemoglobin 9.6 g/dL (12.0-15.0); Lymphocyte # 1.06 X10^3/ul (4.0); Lymphocyte % 10.7 % (19-41); Mean Corp Hgb Conc 31.1 g/dL (32-36); Mean Corpuscular Hgb 28.5 pg (27.0-32.0); Mean Corpuscular Volume 91.7 fL (81-99); Mean Platelet Vol. 10.2 fl (6.2-12.0); Monocyte# 0.96 X10^3/uL; Monocyte% 9.7 % (0-10); NRBC Flagged by Analyzer 0 % (0-5); Neutrophil # 7.75 X10^3/uL (2.7-7.7); Neutrophil % 78.6 % (47-70); Platelet Count 174 K/mm3 (150-450); RBC Distribution Width CV 16.6 % (11.6-14.6); RBC Distribution Width SD 55.8 fl (35.1-43.9); Red Blood Count 3.37 M/mm3 (4.2-5.4); White Blood Count 9.9 K/mm3 (4.4-11.0)
[2020-04-26 07:45] LABS: Anion Gap 9 (5-15); BUN 21 mg/dL (7-18); BUN/Creat Ratio 16.2 RATIO (10-20); Calcium,Total 7.6 mg/dL (8.5-10.1); Chloride 109 mmol/L (98-107); EST Glomerular Filtration Rate 44 mL/min (>60); Est Glom Filt Rate - Afr Amer 54 mL/min (>60); Estimated Creatinine Clearance 38.07 ml/min; Glucose 118 mg/dL (74-106); Sodium Level 141 mmol/L (136-145)
[2020-04-26 08:38] VITALS: BP 136/115; PULSE 101; RESP 18; TEMP 36.1; O2SAT 94
[2020-04-26] MEDS: guaiFENesin 1,200 MG Tablet 1200 MG PO (08:52)
[2020-04-26] MEDS: DULoxetine Hcl 60 MG Capsule PO (08:52)
[2020-04-26] MEDS: busPIRone 5 MG Tablet PO (08:52)
--- NOTE | 2020-04-26 11:02 | DCINST_ITS ---
- Discharge Diagnoses Current Active Problems: Current Active and Chronic Problems (Last Updated 03/01/18 @ 14:55 by Carmelina Jarrett) Severe sepsis (Acute) Pneumonia (Acute) You will use the following diet at home:: Cardiac Your food should be the consistency of: Regular Your liquids should be the consistency of: Regular/Thin Discharge Activity: Return to Normal Activity Weight Bearing Status: Weight bearing as tolerated Call your doctor if you observe: Fever of 101 or Higher, Inability to urinate, Shortness of breath, Dizziness, Fainting spells Instructions: Understanding Sepsis, Sepsis, ED CYSTITIS Female Adult Allergies/Adverse Reactions: Allergies clindamycin Allergy (Verified 04/24/20 20:41) Swelling metformin Adverse Reaction (Verified 04/24/20 20:41) Nausea Medications to take at Discharge Ergocalciferol [Vitamin D] 50,000 unit PO MARTELL 02/28/14 Gabapentin [Neurontin] 600 mg PO QHS 02/28/14 Lisinopril [Zestril] 10 mg PO DAILY 02/28/14 Spironolactone [Aldactone] 50 mg PO DAILY 02/28/14 Duloxetine HCl 60 mg PO DAILY 02/17/18 Ropinirole HCl [Requip] 2 mg PO QHS 02/17/18 Gabapentin [Neurontin] 100 mg PO TID 3 Days #0 02/18/18 busPIRone [Buspar] 5 mg PO BID #60 tab 02/18/18 atorvastatin 80 mg tablet 80 mg PO QDAY 03/01/18 insulin glargine 100 unit/mL subcutaneous solution 48 unit SC QHS ml 03/01/18 pregabalin 100 mg capsule 100 mg PO TID 03/01/18 Cefdinir 300 mg PO BID #10 cap 04/26/20 Tamsulosin HCl 0.4 mg PO DAILY #30 cap 04/26/20 The following prescriptions were given: Cefdinir 300 mg PO BID #10 cap Transmission Status: Pending to [facility] [address] Tamsulosin HCl 0.4 mg PO DAILY #30 cap Transmission Status: Pending to [facility] [address] Primary Care Physician: Lorelei Borges MD [Primary Care Provider] - Please follow up with your Primary Care Physician in: 1-2 weeks Test Results: Test results from this visit will be discussed in further detail at your follow- up appointment, if applicable. Please Follow Up With: Abhishek Johnson MD When: 1-2 weeks Proposed Discharge Date: 04/26/20 - teodoro Jayce
--- NOTE | 2020-04-26 11:04 | DS.PCM_ITS ---
Discharge Date and Diagnosis Date of Admission: 04/24/20 Date of Discharge: 04/26/20 - Primary Discharge Diagnosis Acute Problems: Active Problems (Last Updated 03/01/18 @ 14:55 by Carmelina Jarrett) Severe sepsis (Acute) Pneumonia (Acute) - Secondary Discharge Diagnosis Chronic Problems: Chronic Problems (Last Updated 03/01/18 @ 14:55 by Carmelina Jarrett) Diabetes (Chronic) Uncontrolled diabetes mellitus (Chronic) No BG data for review. A1c 12.7 Discussed pathophysiology of diabetes with patient. Discussed need to control diet, weight, exercise, Discussed how to carb count, exercise plan, Reviewed BG monitoring ; how to accomplish and document. Discussed need for being an active participant in her diabetes care. She is ask to send me a copy of her insulin scale so I can adjust if needed when I am able to review her BG. I will place a CGM on her today so I can obtain her glucose readings in a timely manner. Reviewed need for daily skin care. Discussed need for routine visits and lab testing. Discussed routine eye exams Is on lai inhibitor Is on statin Reviewed insulin use and administration of. Will not check microalbumin until urine clear of blood. HTN (hypertension) (Chronic) BP 101/67. No change. HLD (hyperlipidemia) (Chronic) On statin. Tolerating. no change. Restless leg (Chronic) Hematuria (Chronic) Urine retention (Chronic) History of colon cancer (Chronic) History of uterine cancer (Chronic) Tobacco dependence (Chronic) COPD (chronic obstructive pulmonary disease) (Chronic) Morbid obesity (Chronic) Bladder mass (Chronic) Neuropathy (Chronic) Hospital Course and Treatment Imaging Results: Diagnostic Data Chest X-Ray 04/24/20 21:30 IMPRESSION: Focal opacity in the left lung along the left are bordered confluent with the left arm border and associated with a minimal linear opacity in the adjacent lung. Atelectasis, infiltrate or pleural pericardial scarring. This finding not present on prior exam of 10/02/2016. Electronically Signed: Torri Weber MD at 22:09 EDT , Service support , Renal Ultrasound 04/25/20 05:55 IMPRESSION: Normal size symmetric kidneys without hydronephrosis. 1.5 cm cyst of the upper pole of the left kidney unchanged from prior CT exam, no additional imaging recommendations. Despite the fact that the patient''s catheter was clamped at 5:30 PM today, the urinary bladder remains completely empty with urinary catheter present. Inadequate study for evaluation of bladder mass. Bladder ultrasound could be repeated with filling of the bladder under radiologist''s supervision. Electronically Signed: Torri Weber MD at 22:57 EDT , Service support , critical care- Dr paez infectious disease- Dr Gamboa Operations: None Procedures: None Summary of Care Provided: The patient is a 60 year old F with a past medical history as outlined was admitted through the ED on 04/24/2020 with a complaint of fever, cough, shortness of breath and lower urinary tract symptoms. She complained of decreased frequency of urination and shortness of breath with exertion and had a cough which is productive of greenish-yellowish sputum with shortness of breath on exertion. She had recently been seen in the ED on March 08, 2020 for acute retention of urine along with hematuria. She also had a history of recurrent UTIs. At the last admission, she was prescribed Keflex for 14 days and discharged home. In the ED, she had a temperature of 102.3 Fahrenheit with heart rate of 114 and blood pressure of 92/54 with respiratory rate of 22. Alisa st x-ray showed focal opacity in the left lingular lobe. She was admitted for severe sepsis due to UTI and community-acquired pneumonia and started on IV Zosyn. Critical care was consulted. COVID test done was negative. Of note, a CT scan of the abdomen done in January 2018 showed air in the urinary bladder with mild diffuse mural thickening of the bladder with 8 mm focal density within the posterior bladder lumen which may represent clot or soft tissue mass. Based on this CAT scan, a renal ultrasound was ordered. Patient responded well to IV fluid hydration and IV antibiotics. UA showed evidence of UTI and respiratory panel was negative as well as CO VID test. Urine culture E. coli. Patient improved and was transferred out of the ICU to the regular nursing floor. Patient's Gaffney catheter was taken out but subsequently explained urinary retention so Gaffney catheter was replaced. Urology was also consulted. On 04/26/2020, patient insisted on leaving the hospital as she says she felt claustrophobic. She was counseled extensively by hospitalist that she would benefit from 1 more day of IV antibiotics and also from urology consulted due to urinary retention. Patient adamantly refused to stay and says she had to get home. When counseled that she would need to sign out AGAINST MEDICAL ADVICE, patient was agreeable to this and despite further counseled about the need to stay for at least 1 more day for IV antibiotics, she insisted on being discharged home. Renal ultrasound done showed normal size symmetric kidneys without hydronephrosis and a 1.5 cm cyst of the upper pole of the left kidney unchanged from prior CT exam with no additional imaging recommendations. Patient stated that she had been following up with her PCP at [facility] on account of the abdominal CT findings of the bladder from 2018 and had recently had a renal ultrasound done in [facility] also but did not know the results. Patient therefore stated that she preferred to follow-up with her primary care doctor at [facility] with staff. Patient was given a prescription for p.o. cefdinir 300 mg twice daily for 5 days and also p.o. Flomax 0.4 mg daily to help with urinary retention. She left AGAINST MEDICAL ADVICE on 04/26/2020. Patient seen and examined prior to discharge. She had no complaints and felt well. She was agreeable to stay 1 more day but subsequently decided that she wanted to leave AGAINST MEDICAL ADVICE and would not change her mind despite extensive counseling by hospitalist. Review of systems otherwise negative. Labs and vitals reviewed. Home medication reviewed and reconciled. O/E: Vital Signs Temp Pulse Resp BP Pulse Ox 97 F L 101 H 18 136/115 H 94 04/26/20 08:38 04/26/20 08:38 04/26/20 08:38 04/26/20 08:38 04/26/20 08:38 [] General: Alert, Oriented x3, Cooperative, No apparent distress HEENT: Atraumatic, PERRLA, EOMI, Normocephalic Oral: Dry Mucosa Neck: Supple, No JVD, Negative Carotid Bruits Lungs: Clear to auscultation, Normal air movement, No rhonchi, No wheeze, on room air Cardiovascular: Regular rate, Regular Rhythm, Normal S1, Normal S2, No murmurs Abdomen: Bowel Sounds Present, Soft, Non Tender, Non-Distended, No Hepato- splenomegaly Extremities: No clubbing, No cyanosis, No edema, Capillary Refill Less than 3 Seconds Skin: No rashes, No breakdown Musculoskeletal: No Tenderness to Palpation of Joints or Extremities Lymphatic: No Cervical, Supraclavicular, or Inguinal Adenopathy Neurological: Cranial nerves II-XII grossly intact, Neuro grossly intact, Motor Exam 5/5 strength throughout Psych/Mental Status: Normal Affect, Appropriate, Alert and oriented to time, place, person, mood and affect Plan: Patient left AGAINST MEDICAL ADVICE. - Physical Exam Vitals/I&O's: Vital Signs Temp Pulse Resp BP Pulse Ox 97 F L 101 H 18 136/115 H 94 04/26/20 08:38 04/26/20 08:38 04/26/20 08:38 04/26/20 08:38 04/26/20 08:38 Oxygen Flow Rate (L/min) 2 Oxygen Delivery Method Nasal Cannula Weight: 218 lb 11.177 oz Body Mass Index (BMI) 37.1 Finger Stick Blood Glucose 218 Intake and Output for Last 24 Hours 04/24/20 04/25/20 04/26/20 23:59 23:59 23:59 Intake Total 1999 4598.91 / 4598.91 1332.17 / 1332.17 Output Total 0 / 0 810 / 810 Balance 1999 3788.91 / 3788.91 1332.17 / 1332.17 Microbiology Past 72 Hours 04/25/20 03:45 Urine, Clean Catch Urine Culture - Preliminary Presumptive E. coli 04/25/20 13:00 Mucosa - Nasopharyngeal Respiratory Panel (PCR) - Final 04/25/20 03:45 Urine, Clean Catch Legionella Antigen - Final 04/25/20 03:45 Urine, Clean Catch Streptococcus pneumoniae Antigen (M - Final Laboratory Results 04/25/20 12:55: POC Glucose 121 H 04/25/20 17:13: POC Glucose 129 H 04/25/20 21:45: POC Glucose 141 H 04/26/20 06:20: WBC 9.9, RBC 3.37 L, Hgb 9.6 L, Hct 30.9 L, MCV 91.7, MCH 28.5, MCHC 31.1 L, RDW Std Deviation 55.8 H, RDW Coeff of Mat 16.6 H, Plt Count 174, MPV 10.2, Immature Gran % (Auto) 0.300, Neut % (Auto) 78.6 H, Lymph % (Auto) 10.7 L, [place] % (Auto) 9.7, Eos % (Auto) 0.6, Baso % (Auto) 0.1, Absolute Neuts (auto) 7.8 H, Absolute Lymphs (auto) 1.06, Nucleated RBC % 0 04/26/20 06:20: Sodium 141, Potassium 4.0, Chloride 109 H, Carbon Dioxide 23.0, Anion Gap 9, BUN 21 H, Creatinine 1.30 H, Estim Creat Clear Calc 38.07, Est GFR (MDRD) Af Amer 54 L, Est GFR (MDRD) Non-Af 44 L, BUN/Creatinine Ratio 16.2, Glucose 118 H, Calcium 7.6 L Current Medications Acetaminophen (Tylenol) 650 mg PO Q6H PRN PRN PRN Reason: Pain Score 1-10/Temp > 100.7 F Last Admin: 04/26/20 02:44 Dose: 650 mg Documented by: Al Hydroxide/Mg Hydroxide (Mylanta Ii) 30 ml PO Q6H PRN PRN PRN Reason: Gastric Burning Albuterol Sulfate (Ventolin Aerosols) 2.5 mg INHALATION Q2H PRN PRN PRN Reason: SOB/Wheezing Albuterol/Ipratropium (Duoneb) 3 ml INHALATION Q4H.RT [facility] Last Admin: 04/26/20 07:15 Dose: 3 ml Documented by: Atorvastatin Calcium (Lipitor) 80 mg PO QHS [facility] Last Admin: 04/25/20 21:49 Dose: 80 mg Documented by: Buspirone HCl (Buspar) 5 mg PO BID [facility] Last Admin: 04/26/20 08:52 Dose: 5 mg Documented by: Duloxetine HCl (Cymbalta) 60 mg PO DAILY [facility] Last Admin: 04/26/20 08:52 Dose: 60 mg Documented by: Enoxaparin Sodium (Lovenox) 40 mg SC Q12H [facility] Last Admin: 04/26/20 02:45 Dose: 40 mg Documented by: Ergocalciferol (Vitamin D) 50,000 unit PO MARTELL [facility] Gabapentin (Neurontin) 100 mg PO BID@0600,1400 [facility] Last Admin: 04/26/20 05:10 Dose: 100 mg Documented by: Gabapentin (Neurontin) 600 mg PO QHS [facility] Last Admin: 04/25/20 21:49 Dose: 600 mg Documented by: Guaifenesin (Mucinex) 1,200 mg PO BID [facility] Last Admin: 04/26/20 08:52 Dose: 1,200 mg Documented by: Piperacillin Sod/Tazobactam (Sod 3.375 gm/ Sodium Chloride) 50 mls @ 12.5 mls/hr IV Q8 [facility] Last Infusion: 04/26/20 09:46 Dose: Infused Documented by: Sodium Chloride () 250 mls @ 15 mls/hr IV .[id number] PRN PRN Reason: Saline Flush Last Infusion: 04/26/20 05:11 Dose: 0 mls/hr Documented by: Sodium Chloride () 250 mls @ 15 mls/hr IV .[id number] PRN PRN Reason: Additional IVPB Infusion Sodium Chloride () 1,000 mls @ 100 mls/hr IV .Q10H [facility] Last Admin: 04/26/20 02:48 Dose: 100 mls/hr Documented by: Insulin Glargine (Lantus (Bkc)) 35 units SC QHS [facility] Last Admin: 04/25/20 21:47 Dose: 35 u Documented by: Nitroglycerin (Nitrostat) 0.4 mg SUBLINGUAL Q5M PRN PRN Reason: CARDIAC/CHEST PAIN Ondansetron HCl (Zofran) 4 mg IV Q8H PRN PRN PRN Reason: NAUSEA/VOMITING [facility] Admin: 04/25/20 17:56 Dose: 1 mg Documented by: Prochlorperazine Edisylate (Compazine Iv) 5 mg IV Q4H PRN PRN PRN Reason: Breakthrough Nausea/Vomiting Senna/Docusate Sodium (Senokot-S, Nicole-Colace) 2 tablet PO BID PRN PRN PRN Reason: Constipation Sodium Chloride () 10 - 40 ml IV UD PRN PRN Reason: SALINE FLUSH Discharge Diet: Low fat/ Low Cholesterol Discharge Activity: Return to Normal Activity Weight Bearing Status: Weight bearing as tolerated Call your doctor if you observe: Fever of 101 or Higher, Inability to urinate, Shortness of breath, Dizziness, Fainting spells Home Medications: Medications to take at Discharge Ergocalciferol [Vitamin D] 50,000 unit PO MARTELL 02/28/14 Gabapentin [Neurontin] 600 mg PO QHS 02/28/14 Lisinopril [Zestril] 10 mg PO DAILY 02/28/14 Spironolactone [Aldactone] 50 mg PO DAILY 02/28/14 Duloxetine HCl 60 mg PO DAILY 02/17/18 Ropinirole HCl [Requip] 2 mg PO QHS 02/17/18 Gabapentin [Neurontin] 100 mg PO TID 3 Days #0 02/18/18 busPIRone [Buspar] 5 mg PO BID #60 tab 02/18/18 atorvastatin 80 mg tablet 80 mg PO QDAY 03/01/18 insulin glargine 100 unit/mL subcutaneous solution 48 unit SC QHS ml 03/01/18 pregabalin 100 mg capsule 100 mg PO TID 03/01/18 Cefdinir 300 mg PO BID #10 cap 04/26/20 Tamsulosin HCl 0.4 mg PO DAILY #30 cap 04/26/20 Following Prescriptions Were Given to Patient: Cefdinir 300 mg PO BID #10 cap Transmission Status: Received by [facility] Tamsulosin HCl 0.4 mg PO DAILY #30 cap Transmission Status: Received by [facility]OR[facility] Primary Care Physician: Lorelei Borges MD [Primary Care Provider] - Please follow up with your Primary Care Physician in: 1-2 weeks Please Follow Up With: Abhishek Johnson MD When: 1-2 weeks Patient Instructions: Sepsis, Understanding Sepsis, ED CYSTITIS Female Adult Disposition: Against Medical Advice Minutes spent on discharge:: 40 Patient Condition:: Stable Medical Necessity - Tobacco Use Smoking Status: Current every day smoker Tobacco Use: Cigarettes Meaningful Use Info Meaningful Use Diagnoses (Choose all that apply): None applicable Inpatient E&M: 11785 [facility]
--- NOTE | 2020-04-26 11:16 | CASEMGMT ---
Pt was to be tested for home oxygen qualification but then decided to leave AMA. Evelyn TOLEDO CM
--- NOTE | 2020-04-26 12:17 | PHA.DC.MR ---
Pharmacy Service has performed discharge medication reconciliation for this patient. The patient's discharge medication list was reviewed for discrepancies and discrepancies were resolved. Home Medications Ergocalciferol [Vitamin D] 50,000 unit PO MARTELL 02/28/14 Gabapentin [Neurontin] 600 mg PO QHS 02/28/14 Lisinopril [Zestril] 10 mg PO DAILY 02/28/14 Spironolactone [Aldactone] 50 mg PO DAILY 02/28/14 Duloxetine HCl 60 mg PO DAILY 02/17/18 Ropinirole HCl [Requip] 2 mg PO QHS 02/17/18 Gabapentin [Neurontin] 100 mg PO TID 3 Days #0 02/18/18 busPIRone [Buspar] 5 mg PO BID #60 tab 02/18/18 atorvastatin 80 mg tablet 80 mg PO QDAY 03/01/18 insulin glargine 100 unit/mL subcutaneous solution 48 unit SC QHS ml 03/01/18 pregabalin 100 mg capsule 100 mg PO TID 03/01/18 Cefdinir 300 mg PO BID #10 cap 04/26/20 Tamsulosin HCl 0.4 mg PO DAILY #30 cap 04/26/20
--- NOTE | 2020-04-29 14:30 | CASEMGMT ---
RN CM DC PHONE CALL Call deferred as patient left AMA. Shaan BSN RN ACM
== END 2020-04-26 11:38 | disposition left against medical advice (07) | DRG 720 ==
LOC: ED 04-25 00:02 → ICU 04-25 01:16 → PCU 04-25 10:27
PROVIDERS: Admitting Provider Internal Medicine; Emergency Provider Emergency Medicine; PCP Internal Medicine; Referring Provider Internal Medicine; Visit Provider Student in an Organized Health Care Education/Training Program
DX: A41.9 Sepsis, unspecified organism (principal); J18.9 Pneumonia, unspecified organism; E78.5 Hyperlipidemia, unspecified; R65.20 Severe sepsis without septic shock; N39.0 Urinary tract infection, site not specified; J98.11 Atelectasis; N17.0 Acute kidney failure with tubular necrosis; B96.20 Unspecified Escherichia coli [E. coli] as the cause of diseases classified elsewhere; J44.0 Chronic obstructive pulmonary disease with (acute) lower respiratory infection; I10 Essential (primary) hypertension; E11.65 Type 2 diabetes mellitus with hyperglycemia; G25.81 Restless legs syndrome; Z85.038 Personal history of other malignant neoplasm of large intestine; Z85.42 Personal history of malignant neoplasm of other parts of uterus; Z87.440 Personal history of urinary (tract) infections; Z90.710 Acquired absence of both cervix and uterus; Z90.49 Acquired absence of other specified parts of digestive tract; F17.210 Nicotine dependence, cigarettes, uncomplicated; G62.9 Polyneuropathy, unspecified; N32.9 Bladder disorder, unspecified; Z79.4 Long term (current) use of insulin; Z68.37 Body mass index [BMI] 37.0-37.9, adult; Z82.49 Family history of ischemic heart disease and other diseases of the circulatory system; Z83.3 Family history of diabetes mellitus; E66.01 Morbid (severe) obesity due to excess calories
CPT/HCPCS: 71045; 76770; 80048; 80053; 81001; 82550; 82962; 83605; 83615; 83735; 83880; 84145; 85025; 85379; 85384; 85610; 85730; 86140; 87040; 87086; 87088; 87186; 87449; 87633; 87635; 87641; 93005; 94640; 94799; 97802; 99251; 99285; 99406; J7030; J7050; A4216; G0463; U0003

== ENCOUNTER 2020-05-22 23:40 | Emergency (ER) | payer MEDICAID, SELFPAY ==
[2020-04-25 01:39] VITALS: BMI 37.1
[2020-05-22 23:41] VITALS: BP 155/66; PULSE 120; RESP 24; TEMP 39.5; O2SAT 92; O2SAT 98; BMI 35.9
[2020-05-23] VITALS (9 sets, daily range): BP systolic 104–120; BP diastolic 48–93; PULSE 85–110; RESP 16–20; TEMP 37.6–39.5; O2SAT 93–98
--- NOTE | 2020-05-23 00:16 | ED.DCSUM_ITS ---
History of Present Illness Chief Complaint: General Illness Informant: Patient Narrative: 60-year-old female with recent admission to the hospital for pneumonia and sepsis presenting for new shortness of breath as well as fever. She states that she does not have chest pain she is just having trouble catching her breath and she has a cough. She developed a fever earlier this evening. Patient also complains of urinary frequency. No history of DVT/PE. She was tested for COVID on last admission and was negative. She has generalized weakness. - Past Medical History (1) Diabetes Status: Chronic (2) Severe sepsis Status: Chronic (3) Pneumonia Status: Chronic (4) Uncontrolled diabetes mellitus Status: Chronic Comment: No BG data for review. A1c 12.7 Discussed pathophysiology of diabetes with patient. Discussed need to control diet, weight, exercise, Discussed how to carb count, exercise plan, Reviewed BG monitoring ; how to accomplish and document. Discussed need for being an active participant in her diabetes care. She is ask to send me a copy of her insulin scale so I can adjust if needed when I am able to review her BG. I will place a CGM on her today so I can obtain her glucose readings in a timely manner. Reviewed need for daily skin care. Discussed need for routine visits and lab testing. Discussed routine eye exams Is on lai inhibitor Is on statin Reviewed insulin use and administration of. Will not check microalbumin until urine clear of blood. (5) HTN (hypertension) Status: Chronic Comment: BP 101/67. No change. (6) HLD (hyperlipidemia) Status: Chronic Comment: On statin. Tolerating. no change. Past Medical History - Allergies and Home Meds Allergies/Adverse Reactions: Allergies clindamycin Allergy (Verified 04/24/20 20:41) Swelling metformin Adverse Reaction (Verified 04/24/20 20:41) Nausea Primary Care Physician: Lorelei Borges MD [Primary Care Provider] - Prior records reviewed: Yes Past Medical History: - - Reviewed in problem list Surgical History: noncontributory, - - colon resection for colon cancer by DUANE Lanza with BSO for uterine cancer, abdominal laparotomy for lysis of adhesions for small bowel obstruction Smoking Status: Current every day smoker Alcohol: None Drugs: None - Family History Maternal Family History: Family History (Last Updated 03/01/18 @ 14:43 by Carmelina Jarrett) Father Arthritis Cancer Diabetes Heart disease Hypertension Mother Hypertension Sister Arthritis Lupus Daughter Kidney stones Family History: Reports: Heart Disease Review of Systems General: Reports: Fever, Malaise Eyes: Denies: Visual changes - bilaterally, Diplopia ENT: Denies: Rhinorrhea, Sore throat Cardiovascular: Denies: Chest pain, Palpitations Respiratory: Reports: Dyspnea, Cough, Dyspnea on exertion Gastrointestinal: Denies: Abdominal pain, Nausea, Vomiting, Diarrhea, Melena, Hematochezia Genitourinary: Reports: Frequency, - - Foul-smelling urine Musculoskeletal: Denies: Myalgias, Arthralgias Skin: Denies: Rash, Abscess Physical Exam Vital Signs/Narrative: Vital Signs Temp Pulse Resp BP Pulse Ox 05/22/20 23:41 103.1 F H 120 H 24 H 155/66 H 98 Inital Vital Signs reviewed: Yes General: Obese, No Acute Distress Head: Normocephalic, Atraumatic Eyes: Perrl, EOMI ENT: Moist mucous membranes, No rhinorrhea Cardiovascular: Regular rhythm, Tachycardia Respiratory: Decreased Air Movement Abdomen: Soft, Nontender, Nondistended Skin: Normal color, No rash. Negative for: Cyanosis Neurological: Alert, Oriented x3 Psychological: Normal affect, Normal Mood Diagnostic/Tx/Re-eval Clinical Impression(s) from Imaging Studies Chest X-Ray 05/23/20 00:17 IMPRESSION: Normal x-ray examination of the chest. Electronically Signed: Tod Villar, at 1:06 EDT Tel , Service support , Chest CTA 05/23/20 00:54 IMPRESSION: No demonstrated pulmonary embolism or arterial dissection. Enlarged mediastinal lymph nodes may represent metastatic lesions. Electronically Signed: Tod Villar at 3:02 EDT Tel , Service support , Laboratory Data 05/23/20 05/23/20 05/23/20 00:07 00:07 00:07 WBC 7.8 RBC 4.30 Hgb 12.1 Hct 37.5 MCV 87.2 MCH 28.1 MCHC 32.3 RDW Std Deviation 48.2 H RDW Coeff of Mat 15.1 H Plt Count 223 MPV 9.5 Immature Gran % (Auto) 0.400 Neut % (Auto) 90.5 H Lymph % (Auto) 5.6 L [place] % (Auto) 2.2 Eos % (Auto) 1.0 Baso % (Auto) 0.3 Absolute Neuts (auto) 7.1 Absolute Lymphs (auto) 0.44 L Nucleated RBC % 0 Differential Comment SCANNED PT 13.8 INR 1.1 APTT 25.0 D-Dimer Quant (PE/DVT) 0.98 H* Sodium 141 Potassium 4.2 Chloride 105 Carbon Dioxide 31.0 Anion Gap 5 BUN 18 Creatinine 1.20 H Estim Creat Clear Calc 41.24 Est GFR (MDRD) Af Amer 59 L Est GFR (MDRD) Non-Af 49 L BUN/Creatinine Ratio 15.0 Glucose 176 H Lactic Acid Calcium 9.1 Total Bilirubin 0.60 AST 9 L ALT 19 Alkaline Phosphatase 185 H Troponin I 0.019 Total Protein 7.2 Albumin 3.0 L Globulin 4.2 Albumin/Globulin Ratio 0.7 L Procalcitonin Urine Color Urine Clarity Urine pH Ur Specific [place] Urine Protein Urine Glucose (UA) Urine Ketones Urine Occult Blood Urine Nitrite Urine Bilirubin Urine Urobilinogen Ur Leukocyte Esterase Urine RBC Urine WBC Ur Squamous Epith Cells Urine Bacteria Urine Mucus COVID-19 (YING) 05/23/20 05/23/20 05/23/20 00:07 01:02 01:30 WBC RBC Hgb Hct MCV MCH MCHC RDW Std Deviation RDW Coeff of Mat Plt Count MPV Immature Gran % (Auto) Neut % (Auto) Lymph % (Auto) [place] % (Auto) Eos % (Auto) Baso % (Auto) Absolute Neuts (auto) Absolute Lymphs (auto) Nucleated RBC % Differential Comment PT INR APTT D-Dimer Quant (PE/DVT) Sodium Potassium Chloride Carbon Dioxide Anion Gap BUN Creatinine Estim Creat Clear Calc Est GFR (MDRD) Af Amer Est GFR (MDRD) Non-Af BUN/Creatinine Ratio Glucose Lactic Acid 1.6 Calcium Total Bilirubin AST ALT Alkaline Phosphatase Troponin I Total Protein Albumin Globulin Albumin/Globulin Ratio Procalcitonin 0.30 H Urine Color Urine Clarity Urine pH Ur Specific [place] Urine Protein Urine Glucose (UA) Urine Ketones Urine Occult Blood Urine Nitrite Urine Bilirubin Urine Urobilinogen Ur Leukocyte Esterase Urine RBC Urine WBC Ur Squamous Epith Cells Urine Bacteria Urine Mucus COVID-19 (YING) Not Detected 05/23/20 02:45 WBC RBC Hgb Hct MCV MCH MCHC RDW Std Deviation RDW Coeff of Mat Plt Count MPV Immature Gran % (Auto) Neut % (Auto) Lymph % (Auto) [place] % (Auto) Eos % (Auto) Baso % (Auto) Absolute Neuts (auto) Absolute Lymphs (auto) Nucleated RBC % Differential Comment PT INR APTT D-Dimer Quant (PE/DVT) Sodium Potassium Chloride Carbon Dioxide Anion Gap BUN Creatinine Estim Creat Clear Calc Est GFR (MDRD) Af Amer Est GFR (MDRD) Non-Af BUN/Creatinine Ratio Glucose Lactic Acid Calcium Total Bilirubin AST ALT Alkaline Phosphatase Troponin I Total Protein Albumin Globulin Albumin/Globulin Ratio Procalcitonin Urine Color Yellow Urine Clarity Sl. Cloudy Urine pH 8.0 Ur Specific [place] 1.015 Urine Protein 30 H Urine Glucose (UA) Normal Urine Ketones Negative Urine Occult Blood 25 H Urine Nitrite Negative Urine Bilirubin Negative Urine Urobilinogen Normal Ur Leukocyte Esterase 500 H Urine RBC 0-5 SEEN Urine WBC 10-25 SEEN Ur Squamous Epith Cells 0-5 SEEN Urine Bacteria 3+ Urine Mucus 0 SEEN COVID-19 (YING) - Rhythm Strip Rhythm Strip: Sinus Rhythm Rate: 109 - EKG Initial EKG Interpretation: No Acute Injury Pattern, Sinus Tachycardia - Medical Decision Making Patient presents with fever, tachycardia, complain of mild shortness of breath. Sepsis work-up was initiated. Patient was pancultured. Initially I felt the patient would likely be admitted I did do a rapid COVID swab which was negative. Chest x-ray was negative. D-dimer was elevated and she had CTA which was also negative. Patient has no leukocytosis. Lactic acid is negative. She does have a positive procalcitonin as well as a UTI. He feels improved with ibuprofen and IV fluids. I think given her fairly normal work-up she is stable to be discharged home. She was given strict return precautions. She started on Keflex with first dose in the ED. Impression: 1. Fever 2. Urinary tract infection E. Dyspnea uncertain etiology ED Disposition - Plan for ED Patient: Disposition: Home or Assisted Living Instructions: ED CYSTITIS Female Adult Prescriptions: Cephalexin [Keflex] 500 mg PO Q12 #14 cap Transmission Status: Received by [facility] Referrals: Lorelei Borges MD [Primary Care Provider] -
--- NOTE | 2020-05-23 00:17 | RAD_ITS ---
STUDY: X-RAY CHEST REASON FOR EXAM: Female, 60 years old. MOIST NPC, C/O SOB, GENERALIZED WEAKNESS, PNEUMONIA 3 WEEKS AGO TECHNIQUE: Single AP portable view of the chest. COMPARISON: None. FINDINGS: Subsegmental atelectases are noted in the left lung base. There is no demonstrated pleural abnormality. Normal size heart. Normal mediastinum and allison. Normal visualized pulmonary arteries. Normal visualized aortic arch and descending thoracic aorta. Normal visualized thoracic spine. There is degenerative osteoarthritis of the bilateral shoulders. There is no demonstrated abnormality of the visualized soft tissue structures of the upper abdomen. RAD/Chest 1 View (Portable) IMPRESSION: Normal x-ray examination of the chest. Electronically Signed: Tod Villar, at 1:06 EDT Tel , Service support ,
--- NOTE | 2020-05-23 00:17 | EKG12_ITS ---
Test Reason : DYSRHYTHMIA Blood Pressure : / mmHG Vent. Rate : 109 BPM Atrial Rate : 109 BPM P-R Int : 152 ms QRS Dur : 092 ms QT Int : 316 ms P-R-T Axes : 079 083 046 degrees QTc Int : 425 ms Sinus tachycardia Otherwise normal ECG Confirmed by MORENO BLCAK, ELYSSA ([id number]), supervising editor news reel CHESTER RITTER ([id number]) on 05/30/2020 12:56:49 P M Referred By: DELL Confirmed By:WILLAM MAYER MD
[2020-05-23 00:25] LABS: Absolute Lymphocyte Count 0.44 X10^3/uL (0.83-4.51); Absolute Neutrophil Count 7.1 X10^3/uL (2.0-7.7); Basophil# 0.02 X10^3/uL; Basophil% 0.3 % (0-1); Eosinophil# 0.08 X10^3/uL; Hematocrit 37.5 % (37-47); Hemoglobin 12.1 g/dL (12.0-15.0); Lymphocyte # 0.44 X10^3/ul (4.0); Lymphocyte % 5.6 % (19-41); Mean Corp Hgb Conc 32.3 g/dL (32-36); Mean Corpuscular Hgb 28.1 pg (27.0-32.0); Mean Corpuscular Volume 87.2 fL (81-99); Mean Platelet Vol. 9.5 fl (6.2-12.0); Monocyte# 0.17 X10^3/uL; Monocyte% 2.2 % (0-10); NRBC Flagged by Analyzer 0 % (0-5); Neutrophil # 7.09 X10^3/uL (2.7-7.7); Neutrophil % 90.5 % (47-70); POSITIVE DIFFERENTIAL YES; Platelet Count 223 K/mm3 (150-450); RBC Distribution Width CV 15.1 % (11.6-14.6); RBC Distribution Width SD 48.2 fl (35.1-43.9); White Blood Count 7.8 K/mm3 (4.4-11.0)
[2020-05-23 00:36] LABS: Differential Indicated SCAN CRITERIA MET
[2020-05-23 00:43] LABS: ALB/GLOB Ratio 0.7 RATIO (0.9-2.4); AST(SGOT) 9 U/L (15-37); Alanine Aminotransfer ALT/SGPT 19 U/L (13-56); Alkaline Phosphatase 185 U/L (45-117); Anion Gap 5 (5-15); BUN 18 mg/dL (7-18); Calcium,Total 9.1 mg/dL (8.5-10.1); Chloride 105 mmol/L (98-107); EST Glomerular Filtration Rate 49 mL/min (>60); Est Glom Filt Rate - Afr Amer 59 mL/min (>60); Estimated Creatinine Clearance 41.24 ml/min; Globulin 4.2 g/dL (2.2-4.2); Glucose 176 mg/dL (74-106); Potassium 4.2 mmol/L (3.5-5.1); Protein, Total 7.2 g/dL (6.4-8.2); Sodium Level 141 mmol/L (136-145)
[2020-05-23 00:46] LABS: International Normalized Ratio 1.1; Prothrombin Time (Protime)PT. 13.8 SECONDS (11.7-14.9)
[2020-05-23 00:48] LABS: Lactic Acid 1.6 mmol/L (0.4-1.9)
[2020-05-23] MEDS: Ibuprofen 600 MG Tablet PO (00:48)
[2020-05-23 00:50] LABS: Differential Comment SCANNED
[2020-05-23 00:53] LABS: D-Dimer Quantitative (DVT/PE) 0.98 FEU/ug/m (0.27-0.49)
--- NOTE | 2020-05-23 00:54 | CT_ITS ---
STUDY: CTA CHEST REASON FOR EXAM: Female, 60 years old. SOB, WEAKNESS, PNEUMONIA 3 WEEKS AGO, HX DIAB, HTN, COLON CA 2010 RADIATION DOSAGE (If Supplied By Facility): CTDIvol = ( 14.82 ) mGy, DLP = ( 518.79 ) mGycm TECHNIQUE: The examination was performed with the intravenous administration of IV 100mL Isovue-300. Post-processing of the angiographic images was performed, with multiplanar reformation and 3D reconstruction. Individualized dose optimization techniques were used for this CT. COMPARISON: None. FINDINGS: Normal enhancement of the main pulmonary artery and right and left pulmonary arteries. Normal enhancement of the bilateral peripheral pulmonary arteries. There is no demonstrated pulmonary embolism. Normal thoracic aorta and visualized great vessels. There is no demonstrated aortic dissection. Normal heart and pericardium. There is enlargement and mediastinal lymph nodes, the largest lymph node is in the right paratracheal region measuring approximately 2.6 x 2.4 cm. Normal hilar regions. Normal visualized trachea and bronchi. The lungs are well expanded. Normal pulmonary parenchyma. Normal pleura. Normal chest wall structures. There are degenerative changes of thoracic spine. Normal visualized upper abdomen. CT/CTA Chest W/WO Contrast IMPRESSION: No demonstrated pulmonary embolism or arterial dissection. Enlarged mediastinal lymph nodes may represent metastatic lesions. Electronically Signed: Tod Villar, at 3:02 EDT Tel , Service support ,
[2020-05-23 02:53] LABS: Color, Urine Yellow (Yellow); Glucose, Dipstick Normal (Normal); Ketone-Dipstick Negative (Negative); Leukocyte Esterase-Dipstick 500 /ul (Negative); Nitrite-Dipstick Negative (Negative); Occult Blood-Urine 25 /ul (Negative); Protein-Dipstick 30 mg/dl (Negative); Specific Gravity, Urine 1.015 (1.002-1.030); Urine Bilirubin Dipstick Negative (Negative); Urine Clarity Sl. Cloudy (Clear); Urine Urobilinogen Normal (Normal)
[2020-05-23 02:54] LABS: Mucous, Urine 0 SEEN /hpf (<or=2+)
[2020-05-23 02:59] LABS: Bacteria 3+ /hpf (None Seen); Red Blood Cells-Urine 0-5 SEEN /hpf (0-5); Squamous Epithelial Cells - UA 0-5 SEEN /hpf (5-10); White Blood Cells 10-25 SEEN /hpf (0-5)
[2020-05-23 03:21] LABS: Probe Check PASS; Specimen Processing Control PASS
[2020-05-23] MEDS: Cephalexin 250 MG Capsule 500 MG PO (04:26)
== END 2020-05-23 04:35 | disposition home or self-care (01) ==
LOC: ED 05-23 00:52
PROVIDERS: Emergency Provider Student in an Organized Health Care Education/Training Program; PCP Internal Medicine
DX: R50.9 Fever, unspecified (principal); N39.0 Urinary tract infection, site not specified; R06.00 Dyspnea, unspecified; E66.9 Obesity, unspecified; I10 Essential (primary) hypertension; E78.5 Hyperlipidemia, unspecified; E11.9 Type 2 diabetes mellitus without complications; F17.200 Nicotine dependence, unspecified, uncomplicated; Z82.49 Family history of ischemic heart disease and other diseases of the circulatory system; Z85.038 Personal history of other malignant neoplasm of large intestine; Z90.722 Acquired absence of ovaries, bilateral
CPT/HCPCS: 71045; 71275; 80053; 81001; 83605; 84145; 84484; 85025; 85379; 85610; 85730; 87040; 87086; 87088; 87186; 87635; 93005; 96361; 96365; 99285; J7040; Q9967; A4216; U0003

== ENCOUNTER 2021-07-30 16:49 | Emergency (ER) | payer MEDICAID, SELFPAY ==
[2021-07-30 16:50] VITALS: BP 113/55; PULSE 88; RESP 16; TEMP 36.4; O2SAT 95; BMI 35.6
--- NOTE | 2021-07-30 18:15 | EDS_ITS ---
HPI HPI - Female History of Present Illness Chief Complaint: Complaint Narrative Narrative: 61-year-old female with history of UTI presenting with dysuria and hematuria. She states is been going on for about 2 weeks. She has been trying to cope with it at home because she has recurrent UTIs. She not had fever, chills, nausea, vomiting. She complains of pains at the urethra. She did take Pyridium yesterday and today it did not significantly help her. She denies flank pain. She denies history of kidney stones. PFSH [facility] Medical History Anxiety and depression Arthritis Breast lump Cancer Colon cancer COPD (chronic obstructive pulmonary disease) High cholesterol HTN (hypertension) Neuropathy Recurrent UTI Rheumatic fever Rheumatoid arthritis Seasonal allergies Type 2 diabetes mellitus Uterine cancer Vision problem Vitamin deficiency Home Medications ergocalciferol (vitamin D2) 50,000 unit PO MARTELL 02/28/14 [History Last Taken 02/13/18] gabapentin 600 mg PO QHS 02/28/14 [History Last Taken 04/23/20] lisinopril 10 mg PO DAILY 02/28/14 [History Last Taken 04/24/20] spironolactone 50 mg PO DAILY 02/28/14 [History Last Taken 04/24/20] duloxetine 60 mg PO DAILY 02/17/18 [History Last Taken 04/24/20] ropinirole 2 mg PO QHS 02/17/18 [History Last Taken 04/23/20] buspirone 5 mg PO BID #60 tab 02/18/18 [Rx Last Taken 04/24/20] gabapentin 100 mg PO TID 3 Days #0 02/18/18 [Rx Last Taken 04/24/20] atorvastatin 80 mg tablet 80 mg PO QDAY 03/01/18 [History Last Taken 04/23/20] insulin glargine 100 unit/mL subcutaneous solution 48 unit SC QHS ml 03/01/18 [History Last Taken 04/23/20] pregabalin 100 mg capsule 100 mg PO TID 03/01/18 [History Last Taken 04/24/20] tamsulosin 0.4 mg PO DAILY #30 cap 04/26/20 [Rx Last Taken Unknown] cephalexin 500 mg PO Q12 #14 cap 05/23/20 [Rx Last Taken Unknown] cephalexin 500 mg PO BID 7 Days #14 cap 07/30/21 [Rx Last Taken Unknown] hydrocodone-acetaminophen 1 tab PO Q4H PRN PRN 3 Days #10 tablet 07/30/21 [Rx Last Taken Unknown] Allergy/AdvReac Type Severity Reaction Status Date / Time clindamycin Allergy Swelling Verified 07/30/21 16:53 metformin AdvReac Nausea Verified 07/30/21 16:53 Family History Father Arthritis Cancer Diabetes Heart disease Hypertension Mother Hypertension Sister Arthritis Lupus Daughter Kidney stones Surgical History Bowel obstruction History of hysterectomy for cancer tumer removed from colon Social History Smoking Status: Current every day smoker tobacco type: cigarettes alcohol intake: never substance use type: does not use ROS ROS ED Constitutional Constitutional ED: Denies chills, fever(s) or sweats Eyes Eyes: Denies blurry vision or change in vision ENT ENT ED: Denies ear pain or sore throat Cardiovascular Cardiovascular: Denies chest pain, palpitations or racing heartbeat Respiratory/Chest Respiratory/Chest: Denies cough, dyspnea or sputum Gastrointestinal Gastrointestinal: Denies abdominal pain, constipation, diarrhea, nausea or vomiting Genitourinary Genitourinary ED: Reports dysuria, hematuria and urinary frequency Musculoskeletal Musculoskeletal: Denies arthralgias, myalgias or neck pain Integumentary Denies abscess, Abrasions or rash Neurologic Neurologic: Denies headache(s), paresthesias or weakness Psychiatric Psychiatric: Denies anxiety, depression, suicidal ideation or suicidal thoughts Endocrine Endocrinology: Denies polydipsia or polyuria EXAM Physical Exam Const Vital Signs: 07/30/21 16:50 Temperature 97.6 F L Temperature Source Temporal Pulse Rate 88 Respiratory Rate 16 Blood Pressure 113/55 L Blood Pressure Mean 74 Pulse Ox 95 Oxygen Delivery Method Room Air Positive well nourished General Appearance ED: NAD; Negative for pallor HEENT Reports normocephalic, head/scalp atraumatic and moist mucous membranes Eyes PERRL and EOMs intact bilaterally Neck no lymphadenopathy and supple Chest Wall inspection of chest normal and palpation of chest normal Resp normal respiratory effort and clear to auscultation bilaterally Auscultation: Negative for rales, rhonchi or wheezes Cardio regular rate and regular rhythm GI normal to inspection, nondistended, normoactive bowel sounds and non-distended Auscultation: normoactive bowel sounds Palpation: soft Narrative: Deferred Back/Spine no CVA tenderness Extremity normal to inspection General Extremety ED: Negative for edema or tenderness General Extremity: Negative for edema Neuro oriented x3 and CN's II-XII intact bilaterally Sensorium / Orientation: alert Motor Exam: strength 5/5 throughout Psych mental status grossly normal Attitude: No agitated Skin no rashes or lesions noted and no wounds General Skin Exam: Negative for jaundice or pallor MDM MDM MDM Narrative Medical decision making narrative: Patient found to have a urinary tract infection which is consistent with her symptoms. I looked at her previous urine cultures and it was sensitive to Keflex. Patient was given first dose in the ED. She does have a lot of urethral pain without flank pain. I gave her some [place] for pain control. She is counseled when her pain improves with improving infection she can discontinue this. Urine is sent for culture. Impression: 1. UTI Lab Data Attestation: I reviewed the patient's lab results. Labs: Laboratory Results - last 24 hr 07/30/21 18:20 Urine Color SEE COMMENT BELOW Urine Clarity Cloudy Urine pH 6.0 Ur Specific [place] 1.015 Urine Protein 100 H Urine Glucose (UA) Normal Urine Ketones 5 H Urine Occult Blood 25 H Urine Nitrite Positive H Urine Bilirubin 6 H Urine Urobilinogen 8 H Ur Leukocyte Esterase 500 H Urine RBC 5-10 SEEN Urine WBC 25-50 SEEN Ur Squamous Epith Cells 5-10 SEEN Urine Bacteria 3+ Urine Mucus 0 SEEN Discharge Plan Triage Chief Complaint: Complaint ED Provider: Chris Beckham Dx/Rx/DC Orders Instructions: ED CYSTITIS Female Adult Prescriptions: New cephalexin 500 mg capsule 500 mg PO BID 7 Days Qty: 14 RF: 0 hydrocodone-acetaminophen 5-325 mg tablet 1 tab PO Q4H PRN PRN (Reason: Pain) 3 Days Qty: 10 RF: 0 No Action pregabalin [Lyrica] 100 mg capsule 100 mg PO TID RF: 0 atorvastatin 80 mg tablet 80 mg PO QDAY RF: 0 insulin glargine [Lantus U-100 Insulin] 100 unit/mL solution 48 unit SC QHS RF: 0 gabapentin 600 MG tablet 600 mg PO QHS RF: 0 lisinopril 10 MG tablet 10 mg PO DAILY RF: 0 ergocalciferol (vitamin D2) 50,000 UNIT capsule 50,000 unit PO MARTELL RF: 0 spironolactone 50 MG tablet 50 mg PO DAILY RF: 0 ropinirole 5 MG tablet 2 mg PO QHS RF: 0 duloxetine 60 MG capsule,delayed release(DR/EC) 60 mg PO DAILY RF: 0 buspirone 5 MG tablet 5 mg PO BID Qty: 60 RF: 0 gabapentin 300 MG capsule 100 mg PO TID 3 Days Qty: 0 RF: 0 tamsulosin 0.4 MG capsule 0.4 mg PO DAILY Qty: 30 RF: 0 cephalexin 500 MG capsule 500 mg PO Q12 Qty: 14 RF: 0 Primary Care Provider: Lorelei Borges Referrals: Lorelei Borges MD [Primary Care Provider] - Disposition Disposition: Home, Self Care Discharge Date/Time: 07/30/21 19:38
[2021-07-30 18:25] LABS: Mucous, Urine 0 SEEN /hpf (<or=2+)
[2021-07-30 18:34] LABS: Glucose, Dipstick Normal (Normal); Ketone-Dipstick 5 mg/dl (Negative); Leukocyte Esterase-Dipstick 500 /ul (Negative); Nitrite-Dipstick Positive (Negative); Occult Blood-Urine 25 /ul (Negative); Protein-Dipstick 100 mg/dl (Negative); Specific Gravity, Urine 1.015 (1.002-1.030); Urine Clarity Cloudy (Clear); Urine Urobilinogen 8 mg/dl (Normal)
[2021-07-30] MEDS: oxyCODONE 5 MG Tablet PO (18:35)
[2021-07-30 18:42] LABS: Color, Urine SEE COMMENT BELOW (Yellow); Urine Bilirubin Dipstick 6 mg/dL (Negative)
[2021-07-30 18:44] LABS: Bacteria 3+ /hpf (None Seen); Red Blood Cells-Urine 5-10 SEEN /hpf (0-5); Squamous Epithelial Cells - UA 5-10 SEEN /hpf (5-10); White Blood Cells 25-50 SEEN /hpf (0-5)
== END 2021-07-30 19:38 | disposition home or self-care (01) ==
PROVIDERS: Emergency Provider Student in an Organized Health Care Education/Training Program; PCP Internal Medicine
DX: N39.0 Urinary tract infection, site not specified (principal); F17.210 Nicotine dependence, cigarettes, uncomplicated; E11.40 Type 2 diabetes mellitus with diabetic neuropathy, unspecified; E78.00 Pure hypercholesterolemia, unspecified; F32.A Depression, unspecified; F41.9 Anxiety disorder, unspecified; I10 Essential (primary) hypertension; J44.9 Chronic obstructive pulmonary disease, unspecified; M06.9 Rheumatoid arthritis, unspecified; Z79.4 Long term (current) use of insulin; Z87.440 Personal history of urinary (tract) infections
CPT/HCPCS: 81001; 99282

== ENCOUNTER 2021-08-18 16:59 | Emergency (ER) | payer MEDICAID, SELFPAY ==
[2021-08-18 17:00] VITALS: BP 104/50; PULSE 76; RESP 16; TEMP 36.2; O2SAT 96; BMI 34.7
--- NOTE | 2021-08-18 17:35 | EX.ED.DYSGE1 ---
HPI History of Present Illness Chief Complaint: Complaint Informant: patient Onset/Context/Timing Onset: Days (3 days) Context: Gradual Onset Current Severity: Mild Maximum Severity: Mild Narrative Narrative: Patient presents secondary to UTI symptoms for the past 3 days. She reports having urinary frequency and dysuria. She feels like she is having bladder spasms. She was just on an antibiotic earlier this month for similar. No fever or chills. No nausea or vomiting. No back pain. PFSH [facility] TO [facility] Medical History Anxiety and depression Arthritis Breast lump Cancer Colon cancer COPD (chronic obstructive pulmonary disease) High cholesterol HTN (hypertension) Neuropathy Recurrent UTI Rheumatic fever Rheumatoid arthritis Seasonal allergies Type 2 diabetes mellitus Uterine cancer Vision problem Vitamin deficiency Home Medications ergocalciferol (vitamin D2) 50,000 unit PO MARTELL 02/28/14 [History Last Taken 02/13/18] gabapentin 600 mg PO QHS 02/28/14 [History Last Taken 04/23/20] lisinopril 10 mg PO DAILY 02/28/14 [History Last Taken 04/24/20] spironolactone 50 mg PO DAILY 02/28/14 [History Last Taken 04/24/20] duloxetine 60 mg PO DAILY 02/17/18 [History Last Taken 04/24/20] ropinirole 2 mg PO QHS 02/17/18 [History Last Taken 04/23/20] buspirone 5 mg PO BID #60 tab 02/18/18 [Rx Last Taken 04/24/20] gabapentin 100 mg PO TID 3 Days #0 02/18/18 [Rx Last Taken 04/24/20] atorvastatin 80 mg tablet 80 mg PO QDAY 03/01/18 [History Last Taken 04/23/20] insulin glargine 100 unit/mL subcutaneous solution 48 unit SC QHS ml 03/01/18 [History Last Taken 04/23/20] pregabalin 100 mg capsule 100 mg PO TID 03/01/18 [History Last Taken 04/24/20] tamsulosin 0.4 mg PO DAILY #30 cap 04/26/20 [Rx Last Taken Unknown] cephalexin 500 mg PO Q12 #14 cap 05/23/20 [Rx Last Taken Unknown] cephalexin 500 mg PO BID 7 Days #14 cap 07/30/21 [Rx Last Taken Unknown] hydrocodone-acetaminophen 1 tab PO Q4H PRN PRN 3 Days #10 tablet 07/30/21 [Rx Last Taken Unknown] nitrofurantoin monohyd/m-cryst [Macrobid] 100 mg PO Q12H 7 Days #14 cap 08/18/21 [Rx Last Taken Unknown] Allergy/AdvReac Type Severity Reaction Status Date / Time clindamycin Allergy Swelling Verified 08/18/21 17:02 metformin AdvReac Nausea Verified 08/18/21 17:02 Family History Father Arthritis Cancer Diabetes Heart disease Hypertension Mother Hypertension Sister Arthritis Lupus Daughter Kidney stones Surgical History Bowel obstruction History of hysterectomy for cancer tumer removed from colon Social History Smoking Status: Current every day smoker tobacco type: cigarettes alcohol intake: never substance use type: does not use ROS ROS ED Constitutional Constitutional ED: Denies chills or fever(s) Eyes Eyes: Denies change in vision ENT ENT ED: Denies sore throat Cardiovascular Cardiovascular: Denies chest pain Respiratory/Chest Respiratory/Chest: Denies cough or dyspnea Gastrointestinal Gastrointestinal: Denies abdominal pain, diarrhea, nausea or vomiting Genitourinary Genitourinary ED: Reports dysuria and urinary frequency Musculoskeletal Musculoskeletal: Denies back pain Integumentary Denies rash Neurologic Neurologic: Denies headache(s) or weakness Allergic/Immunologic Allergic/Immunologic ED: Denies urticaria EXAM Physical Exam Const Vital Signs: 08/18/21 17:00 Temperature 97.2 F L Temperature Source Temporal Pulse Rate 76 Respiratory Rate 16 Blood Pressure 104/50 L Blood Pressure Mean 68 Pulse Ox 96 Oxygen Delivery Method Room Air Positive well nourished and well developed General Appearance ED: well developed HEENT Reports moist mucous membranes Eyes PERRL and EOMs intact bilaterally Neck supple Chest Wall inspection of chest normal and palpation of chest normal Resp normal respiratory effort and clear to auscultation bilaterally Cardio regular rate and regular rhythm GI non-tender Palpation: soft Back/Spine no CVA tenderness Extremity normal to inspection Neuro oriented x3 Sensorium / Orientation: alert Skin no rashes or lesions noted MDM MDM MDM Narrative Medical decision making narrative: Urinalysis was sent. Urine culture sent. Bladder scan performed. 82 cc remaining in bladder. Lab Data Attestation: I reviewed the patient's lab results. Labs: Laboratory Results - last 24 hr 08/18/21 18:00 Urine Color [place] Urine Clarity Cloudy Urine pH 7.0 Ur Specific [place] 1.010 Urine Protein 100 H Urine Glucose (UA) Normal Urine Ketones 5 H Urine Occult Blood 25 H Urine Nitrite Positive H Urine Bilirubin 6 H Urine Urobilinogen 8 H Ur Leukocyte Esterase 500 H Urine RBC 5-10 SEEN Urine WBC >100 SEEN Ur Squamous Epith Cells 25-50 SEEN Urine Bacteria 3+ Urine Mucus 0 SEEN Treatment and Re-Evaluation Comments:: Urinalysis does reveal significant infection. Last urine culture performed was from April 2020 and at that time urine was resistant to Bactrim. In light of this she will be treated with Macrobid. Urine culture today was sent. Discharge Plan Triage Chief Complaint: Complaint ED Provider: Alisson Lombardi Dx/Rx/DC Orders Clinical Impression: UTI (urinary tract infection) Instructions: ED CYSTITIS Female Adult Prescriptions: New nitrofurantoin monohyd/m-cryst [Macrobid] 100 mg capsule 100 mg PO Q12H 7 Days Qty: 14 RF: 0 No Action pregabalin [Lyrica] 100 mg capsule 100 mg PO TID RF: 0 atorvastatin 80 mg tablet 80 mg PO QDAY RF: 0 insulin glargine [Lantus U-100 Insulin] 100 unit/mL solution 48 unit SC QHS RF: 0 gabapentin 600 MG tablet 600 mg PO QHS RF: 0 lisinopril 10 MG tablet 10 mg PO DAILY RF: 0 ergocalciferol (vitamin D2) 50,000 UNIT capsule 50,000 unit PO MARTELL RF: 0 spironolactone 50 MG tablet 50 mg PO DAILY RF: 0 ropinirole 5 MG tablet 2 mg PO QHS RF: 0 duloxetine 60 MG capsule,delayed release(DR/EC) 60 mg PO DAILY RF: 0 buspirone 5 MG tablet 5 mg PO BID Qty: 60 RF: 0 gabapentin 300 MG capsule 100 mg PO TID 3 Days Qty: 0 RF: 0 tamsulosin 0.4 MG capsule 0.4 mg PO DAILY Qty: 30 RF: 0 cephalexin 500 MG capsule 500 mg PO Q12 Qty: 14 RF: 0 cephalexin 500 mg capsule 500 mg PO BID 7 Days Qty: 14 RF: 0 hydrocodone-acetaminophen 5-325 mg tablet 1 tab PO Q4H PRN PRN (Reason: Pain) 3 Days Qty: 10 RF: 0 Primary Care Provider: Lorelei Borges Referrals: Lorelei Borges MD [Primary Care Provider] - 1-2 Weeks Disposition Disposition: Home, Self Care
[2021-08-18 18:06] LABS: Mucous, Urine 0 SEEN /hpf (<or=2+)
[2021-08-18 18:07] LABS: Color, Urine Amber (Yellow); Glucose, Dipstick Normal (Normal); Ketone-Dipstick 5 mg/dl (Negative); Leukocyte Esterase-Dipstick 500 /ul (Negative); Nitrite-Dipstick Positive (Negative); Occult Blood-Urine 25 /ul (Negative); Protein-Dipstick 100 mg/dl (Negative); Urine Clarity Cloudy (Clear); Urine Urobilinogen 8 mg/dl (Normal)
[2021-08-18 18:14] LABS: Urine Bilirubin Dipstick 6 mg/dL (Negative); White Blood Cells >100 SEEN /hpf (0-5)
[2021-08-18 18:16] LABS: Bacteria 3+ /hpf (None Seen); Squamous Epithelial Cells - UA 25-50 SEEN /hpf (5-10)
[2021-08-18 18:17] LABS: Red Blood Cells-Urine 5-10 SEEN /hpf (0-5)
[2021-08-18 19:00] VITALS: RESP 16
[2021-08-18] MEDS: Nitrofurantoin Macrocrystals 100 MG Capsule PO (19:03)
[2021-08-18 19:10] VITALS: RESP 16
== END 2021-08-18 19:10 | disposition home or self-care (01) ==
PROVIDERS: Emergency Provider Emergency Medicine; PCP Internal Medicine
DX: N39.0 Urinary tract infection, site not specified (principal); F17.210 Nicotine dependence, cigarettes, uncomplicated; E11.40 Type 2 diabetes mellitus with diabetic neuropathy, unspecified; E78.00 Pure hypercholesterolemia, unspecified; I10 Essential (primary) hypertension; J44.9 Chronic obstructive pulmonary disease, unspecified; M06.9 Rheumatoid arthritis, unspecified; F41.9 Anxiety disorder, unspecified; F32.A Depression, unspecified; Z79.4 Long term (current) use of insulin
CPT/HCPCS: 81001; 87086; 87088; 99283

== ENCOUNTER 2022-01-27 22:00 | Inpatient (IN) | payer MEDICAID, SELFPAY ==
[2022-01-27 22:01] VITALS: BP 125/44; PULSE 108; RESP 24; TEMP 36.6; O2SAT 94; BMI 34.7
[2022-01-27 22:12] VITALS: O2SAT 93
--- NOTE | 2022-01-27 22:18 | EKG12_ITS ---
Test Reason : SOB Blood Pressure : / mmHG Vent. Rate : 102 BPM Atrial Rate : 102 BPM P-R Int : 168 ms QRS Dur : 090 ms QT Int : 326 ms P-R-T Axes : 068 076 054 degrees QTc Int : 424 ms Sinus tachycardia Otherwise normal ECG Confirmed by GEOVANY BLACK, HENRIQUE ([id number]), fashion editor CHESTER RITTER ([id number]) on 01/28/2022 9:04:53 AM Referred By: RU Confirmed By:HENRIQUE ARMENAT MD
--- NOTE | 2022-01-27 22:19 | ED.VIS.DYS ---
HPI History of Present Illness Chief Complaint: Shortness of Breath Detail of Chief Complaint: Shortness of breath that started 2 days ago Informant: patient Narrative Narrative: Patient presents to the emergency department complaint of increasing shortness of breath over the last 2 days. She has been using her inhaler without much relief. Patient denies chest pain. She denies recent travel or surgery. She does have history of COPD but does not wear home O2. Patient denies any fever. Cough at times is productive of some green mucus. PFSH PFS Medical History Anxiety and depression Arthritis Breast lump Cancer Colon cancer COPD (chronic obstructive pulmonary disease) High cholesterol HTN (hypertension) Neuropathy Recurrent UTI Rheumatic fever Rheumatoid arthritis Seasonal allergies Type 2 diabetes mellitus Uterine cancer Vision problem Vitamin deficiency Home Medications ergocalciferol (vitamin D2) 50,000 unit PO MARTELL 02/28/14 [History Last Taken 02/13/18] gabapentin 600 mg PO BID 02/28/14 [History Last Taken 04/23/20] lisinopril 10 mg PO DAILY 02/28/14 [History Last Taken 04/24/20] spironolactone 50 mg PO DAILY 02/28/14 [History Last Taken 04/24/20] duloxetine 60 mg PO DAILY 02/17/18 [History Last Taken 04/24/20] ropinirole 2 mg PO QHS 02/17/18 [History Last Taken 04/23/20] buspirone 5 mg PO BID #60 tab 02/18/18 [Rx Last Taken 04/24/20] atorvastatin 80 mg tablet 80 mg PO QDAY 03/01/18 [History Last Taken 04/23/20] insulin glargine 100 unit/mL subcutaneous solution 20 unit SC QHS ml 03/01/18 [History Last Taken 04/23/20] pregabalin 100 mg capsule 100 mg PO TID 03/01/18 [History Last Taken 04/24/20] tamsulosin 0.4 mg PO DAILY #30 cap 04/26/20 [Rx Last Taken Unknown] budesonide-formoterol [Symbicort] 2 puff INHALATION Q12H 01/27/22 [History Last Taken Unknown] doxycycline monohydrate 100 mg PO BID #20 capsule 01/27/22 [Rx Last Taken Unknown] dulaglutide [Trulicity] 0.75 mg SUBCUT QWEEK 01/27/22 [History Last Taken Unknown] prednisone 20 mg PO BID #10 tab 01/27/22 [Rx Last Taken Unknown] Allergy/AdvReac Type Severity Reaction Status Date / Time clindamycin Allergy Swelling Verified 01/27/22 22:02 metformin AdvReac Nausea Verified 01/27/22 22:02 Family History Father Arthritis Cancer Diabetes Heart disease Hypertension Mother Hypertension Sister Arthritis Lupus Daughter Kidney stones Surgical History Bowel obstruction History of hysterectomy for cancer tumer removed from colon Social History Smoking Status: Current every day smoker tobacco type: cigarettes alcohol intake: never substance use type: does not use ROS ROS ED Constitutional Constitutional ED: Reports systems reviewed and no addt'l complaints, except as documented; Denies body ache(s), change in weight or chills Eyes Eyes: Denies acute decrease in peripheral vision, change in vision, double vision or loss of vision ENT ENT ED: Reports none; Denies ear pain, lip swelling, loss taste/smell, neck pain, otalgia or sore throat Cardiovascular Cardiovascular: Reports none; Denies abdominal pain, chest pain with activity, leg edema, lightheadedness, palpitations, rapid heart rate or syncope Respiratory/Chest Respiratory/Chest: Reports none, cough, dyspnea and sputum; Denies change in mental status, dry cough, hemoptysis, shortness of breath at rest or shortness of breath with exertion Gastrointestinal Gastrointestinal: Reports none; Denies abdominal pain, change in stool character, diarrhea, hematemesis, hematochezia, melena, rectal bleeding or vomiting Genitourinary Genitourinary ED: Reports none; Denies abdominal discomfort, anuria, dysuria, genital pain or polyuria Musculoskeletal Musculoskeletal: Reports none; Denies arthralgias, back pain, difficulty walking, extremity pain, muscle weakness or myalgias Integumentary Reports none; Denies abscess or rash Neurologic Neurologic: Reports none; Denies abnormal gait, confusion, focal weakness, frequent falls, headache(s), loss of vision, numbness, paresthesias, radicular pain, vertigo or weakness Psychiatric Psychiatric: Reports systems reviewed and no addt'l complaints, except as documented and none; Denies behavioral changes, confusion, difficulty concentrating, hallucinations, suicidal ideation, tactile hallucinations or visual hallucinations Endocrine Endocrinology: Denies none, cold intolerance, excessive sweating, fatigue or heat intolerance Hematologic/Lymphatic Hematologic/Lymphatic: Reports none; Denies anemia, easy bleeding or easy bruising Allergic/Immunologic Allergic/Immunologic ED: Denies as per HPI, none, lip swelling, mouth swelling, throat swelling, tongue swelling or hives EXAM Physical Exam Const Vital Signs: 01/27/22 22:01 01/27/22 22:12 01/27/22 22:35 Temperature 98 F Temperature Source Temporal Pulse Rate 108 H 104 H Respiratory Rate 24 H 18 Respiratory Effort Short of Breath Short of Breath Respiratory Depth Normal Blood Pressure 125/44 H Blood Pressure Mean 71 Pulse Ox 94 94 Oxygen Delivery Method Room Air Room Air Room Air Positive well nourished and well developed General Appearance ED: well developed and NAD HEENT Reports TM's clear and moist mucous membranes normocephalic and atraumatic; Negative for trauma or tenderness Tympanic Membrane ED: Yes TM's clear Eyes PERRL and EOMs intact bilaterally General Eye ED: Negative for pale conjunctiva or scleral icterus Neck no lymphadenopathy, supple and no JVD General: Negative for tenderness Chest Wall inspection of chest normal and palpation of chest normal Chest: Negative for tenderness Resp normal respiratory effort and clear to auscultation bilaterally Effort and Inspection: Negative for respiratory distress or pain with movement Auscultation: wheezes and diminished lung sounds; Negative for rhonchi Cardio regular rate, regular rhythm, S1 normal heart sound, S2 normal heart sound and no murmurs Peripheral Pulses: pulses 2+ throughout GI normal to inspection, nondistended, normoactive bowel sounds, soft to palpation, non-tender, non-distended and no masses Back/Spine no CVA tenderness and no thoracic nor lumbar tenderness Extremity normal to inspection General Extremety ED: Negative for edema General Extremity: Negative for edema Neuro oriented x3, CN's II-XII intact bilaterally, no sensory deficits noted and gait normal Sensorium / Orientation: awake, alert, oriented to person, oriented to place and oriented to time Motor Exam: strength 5/5 throughout and strength abnormal Psych mental status grossly normal Skin no rashes or lesions noted and no wounds MDM MDM MDM Narrative Medical decision making narrative: IV line established on arrival. Patient was given DuoNeb aerosol followed by albuterol aerosols. She was started on Solu-Medrol 125 mg IV. Patient felt markedly improved. On repeat examination she is moving more air but still has some faint wheezes. We discussed whether or not she felt comfortable going home and if she was close to her baseline she thinks she is. Patient does not want to be admitted would prefer to go home. I will start her on prednisone as well as doxycycline and will give first dose in the emergency department. I suspect patient having a COPD exacerbation. Her COVID-19 test was negative. Chest x-ray was unremarkable. Lab Data Attestation: I reviewed the patient's lab results. Labs: Laboratory Results - last 24 hr 01/27/22 01/27/22 22:10 22:10 WBC 12.9 H RBC 3.76 L Hgb 11.3 L Hct 34.2 L MCV 91.0 MCH 30.1 MCHC 33.0 RDW Std Deviation 49.1 H RDW Coeff of Mat 14.6 Plt Count 268 MPV 10.5 Immature Gran % (Auto) 0.300 Neut % (Auto) 64.9 Lymph % (Auto) 22.0 [place] % (Auto) 11.3 H Eos % (Auto) 1.2 Baso % (Auto) 0.3 Absolute Neuts (auto) 8.4 H Absolute Lymphs (auto) 2.83 Nucleated RBC % 0 Sodium 142 Potassium 4.6 Chloride 110 H Carbon Dioxide 26.0 Anion Gap 6 BUN 31 H Creatinine 2.23 H Estim Creat Clear Calc 21.91 Est GFR (MDRD) Af Amer 29 L Est GFR (MDRD) Non-Af 24 L BUN/Creatinine Ratio 13.9 Glucose 109 H Calcium 9.4 Troponin I High Sens 27 Radiography Chest X-Ray - ED: 1 View Diagnostic Testing: Clinical Impression(s) from Imaging Studies Chest X-Ray 01/27/22 22:25 IMPRESSION: Normal x-ray examination of the chest. Electronically Signed: Matti aMzariegos DO at 22:54 EDT , 1 view chest x-ray obtained interpreted by myself as no acute disease process. Radiology in agreement. EKG Initial EKG: Attestation: I personally reviewed and interpreted this EKG as follows: Comments: Sinus rhythm with a rate of 102 bpm with no acute ST segment changes. Discharge Plan Triage Chief Complaint: Shortness of Breath ED Provider: Nanda Nicole Dx/Rx/DC Orders Clinical Impression: COPD exacerbation Instructions: ED COPD Flare Prescriptions: New doxycycline monohydrate 100 MG capsule 100 mg PO BID Qty: 20 RF: 0 prednisone 20 mg tablet 20 mg PO BID Qty: 10 RF: 0 No Action pregabalin [Lyrica] 100 mg capsule 100 mg PO TID RF: 0 atorvastatin 80 mg tablet 80 mg PO QDAY RF: 0 insulin glargine [Lantus U-100 Insulin] 100 unit/mL solution 20 unit SC QHS RF: 0 gabapentin 600 MG tablet 600 mg PO BID RF: 0 lisinopril 10 MG tablet 10 mg PO DAILY RF: 0 ergocalciferol (vitamin D2) 50,000 UNIT capsule 50,000 unit PO MARTELL RF: 0 spironolactone 50 MG tablet 50 mg PO DAILY RF: 0 ropinirole 5 MG tablet 2 mg PO QHS RF: 0 duloxetine 60 MG capsule,delayed release(DR/EC) 60 mg PO DAILY RF: 0 buspirone 5 MG tablet 5 mg PO BID Qty: 60 RF: 0 tamsulosin 0.4 MG capsule 0.4 mg PO DAILY Qty: 30 RF: 0 Trulicity 0.75 mg/0.5 mL pen injector 0.75 mg SUBCUT QWEEK RF: 0 budesonide-formoterol [Symbicort] 160-4.5 mcg/actuation Hfa Aerosol Inhaler 2 puff INHALATION Q12H RF: 0 Primary Care Provider: Eliezer Armando NP Referrals: Eliezer Armando NP, [employer] [facility] [Primary Care Provider] - 3-5 Days Disposition Disposition: Home, Self Care
--- NOTE | 2022-01-27 22:25 | RAD_ITS ---
STUDY: X-RAY CHEST REASON FOR EXAM: Female, 61 years old. Dyspnea TECHNIQUE: Single AP portable view of the chest. COMPARISON: 05/23/2020 FINDINGS: The lungs are clear and expanded. There is no demonstrated pleural abnormality. Normal size heart. Normal mediastinum and allison. Normal visualized pulmonary arteries. Normal visualized aortic arch and descending thoracic aorta. Normal visualized thoracic spine. Normal visualized ribs, clavicles, and shoulders. There is no demonstrated abnormality of the visualized soft tissue structures of the upper abdomen. RAD/Chest 1 View (Portable) IMPRESSION: Normal x-ray examination of the chest. Electronically Signed: Matti Mazariegos DO at 22:54 EDT ,
[2022-01-27] MEDS: Ipratropium/Albuterol Sulfate 3 ML AMPUL.NEB INHALATION (22:28)
[2022-01-27] MEDS: 0.9% Normal Saline 1,000 ML 150 ML IV (22:29)
[2022-01-27] MEDS: MethylPREDNISolone 125 MG/2 ML Vial IV (22:29)
[2022-01-27 22:35] VITALS: PULSE 104; RESP 18; O2SAT 94
[2022-01-27 22:37] LABS: Absolute Lymphocyte Count 2.83 X10^3/uL (0.83-4.51); Absolute Neutrophil Count 8.4 X10^3/uL (2.0-7.7); Basophil# 0.04 X10^3/uL; Basophil% 0.3 % (0-1); Eosinophil# 0.16 X10^3/uL; Eosinophils% 1.2 % (0-5); Hematocrit 34.2 % (37-47); Hemoglobin 11.3 g/dL (12.0-15.0); Lymphocyte # 2.83 X10^3/ul (0.83-4.51); Mean Corpuscular Hgb 30.1 pg (27.0-32.0); Mean Platelet Vol. 10.5 fl (6.2-12.0); Monocyte# 1.46 X10^3/uL; Monocyte% 11.3 % (0-10); NRBC Flagged by Analyzer 0 % (0-5); Neutrophil # 8.35 X10^3/uL (2.7-7.7); Neutrophil % 64.9 % (47-70); Platelet Count 268 K/mm3 (150-450); RBC Distribution Width CV 14.6 % (11.6-14.6); RBC Distribution Width SD 49.1 fl (35.1-43.9); Red Blood Count 3.76 M/mm3 (4.2-5.4); White Blood Count 12.9 K/mm3 (4.4-11.0)
[2022-01-27] MEDS: Albuterol 2.5 MG/3 ML VIAL.NEB. INHALATION ×3 (22:48→23:44)
[2022-01-27 23:03] LABS: Anion Gap 6 (5-15); BUN 31 mg/dL (7-18); BUN/Creat Ratio 13.9 RATIO (10-20); Calcium,Total 9.4 mg/dL (8.5-10.1); Chloride 110 mmol/L (98-107); Creatinine, Serum 2.23 mg/dL (0.55-1.02); EST Glomerular Filtration Rate 24 mL/min (>60); Est Glom Filt Rate - Afr Amer 29 mL/min (>60); Estimated Creatinine Clearance 21.91 ml/min; Glucose 109 mg/dL (74-106); Potassium 4.6 mmol/L (3.5-5.1); Sodium Level 142 mmol/L (136-145); Troponin-I HS 27 pg/mL (3.0-54.0)
--- NOTE | 2022-01-27 23:11 | CPS ---
One Duoneb and three albuterol aerosols given in total.
[2022-01-27 23:23] VITALS: PULSE 104; RESP 16; O2SAT 97
[2022-01-27] MEDS: Doxycycline 100 MG CAPSULE PO (23:31)
[2022-01-28] VITALS (16 sets, daily range): BP systolic 102–134; BP diastolic 60–75; PULSE 72–113; RESP 17–26; TEMP 35.9–37.1; O2SAT 84–95; BMI 36.1
--- NOTE | 2022-01-28 00:25 | PCM.HP.STD ---
HPI - General General Date of Admission: 01/28/22 Date of Service: 01/28/22 Chief Complaint: Dyspnea, wheezing. HPI Narrative The patient is a 61 y/o F w/ PMHx: Rheumatoid arthritis, Anxiety and Depression, CKD stage III with unclear subtype, Obesity, HTN, HLD, RLS, COPD, Diabetes mellitus type II who presents to the [facility] ED on 01/28/22 with history of onset increased dyspnea, wheezing over the last 48 hours, not improving despite usage of home inhalers with no recent fevers or chills although intermittent occasional productive sputum of green mucus but this is unchanged from prior. She notes she has been avoiding any outside work secondary to degenerative disc disease. She denies any ill contacts in the house. She lives with her daughter and her two grandsons. Work-up in the ED included T 98, heart rate 108, BP 125/44, respiratory rate 24, 94% on room air, CBC with WC 12.9, hemoglobin 11.3, platelet 268 with left shift, BMP with chloride 110, BUN/creatinine 31/2.23, glucose 109, troponin 27, chest x-ray with no acute cardiopulmonary finding, rapid COVID antigen negative. In the ED patient ministered Solu-Medrol 1.5 mg IV x1, DuoNeb therapy, normal saline and doxycycline 100 mg p.o. x1. In the ED patient noted to be dropping her oxygen to 84% on room air of note. [facility] Medical History Anxiety and depression Arthritis Breast lump Cancer Colon cancer COPD (chronic obstructive pulmonary disease) High cholesterol HTN (hypertension) Neuropathy Recurrent UTI Rheumatic fever Rheumatoid arthritis Seasonal allergies Type 2 diabetes mellitus Uterine cancer Vision problem Vitamin deficiency Home Medications ergocalciferol (vitamin D2) 50,000 unit PO MARTELL 02/28/14 [History Last Taken 02/13/18] gabapentin 600 mg PO BID 02/28/14 [History Last Taken 04/23/20] lisinopril 10 mg PO DAILY 02/28/14 [History Last Taken 04/24/20] spironolactone 50 mg PO DAILY 02/28/14 [History Last Taken 04/24/20] duloxetine 60 mg PO DAILY 02/17/18 [History Last Taken 04/24/20] ropinirole 2 mg PO QHS 02/17/18 [History Last Taken 04/23/20] buspirone 5 mg PO BID #60 tab 02/18/18 [Rx Last Taken 04/24/20] atorvastatin 80 mg tablet 80 mg PO QDAY 03/01/18 [History Last Taken 04/23/20] insulin glargine 100 unit/mL subcutaneous solution 20 unit SC QHS ml 03/01/18 [History Last Taken 04/23/20] pregabalin 100 mg capsule 100 mg PO TID 03/01/18 [History Last Taken 04/24/20] tamsulosin 0.4 mg PO DAILY #30 cap 04/26/20 [Rx Last Taken Unknown] budesonide-formoterol [Symbicort] 2 puff INHALATION Q12H 01/27/22 [History Last Taken Unknown] doxycycline monohydrate 100 mg PO BID #20 capsule 01/27/22 [Rx Last Taken Unknown] dulaglutide [Trulicity] 0.75 mg SUBCUT QWEEK 01/27/22 [History Last Taken Unknown] prednisone 20 mg PO BID #10 tab 01/27/22 [Rx Last Taken Unknown] Allergy/AdvReac Type Severity Reaction Status Date / Time clindamycin Allergy Swelling Verified 01/27/22 22:02 metformin AdvReac Nausea Verified 01/27/22 22:02 Family History Father Arthritis Cancer Diabetes Heart disease Hypertension Mother Hypertension Sister Arthritis Lupus Daughter Kidney stones Surgical History Bowel obstruction History of hysterectomy for cancer tumer removed from colon Social History (Updated 01/28/22 @ 01:[address] Alayna Pineda MD) household members: family Smoking Status: Current every day smoker tobacco type: cigarettes Smoking packs per day: 2 Smoking cigarettes per day: 40.0 alcohol intake: never substance use type: does not use ROS ROS Narrative Admission Review of Systems: CONSTITUTIONAL: No weight loss, fever, chills, + weakness or fatigue. HEENT: Eyes: No visual loss, blurred vision, double vision or yellow sclerae. Ears, Nose, Throat: No hearing loss, sneezing, congestion, runny nose or sore throat. SKIN: No rash or itching, lesions, wounds. CARDIOVASCULAR: No chest pain, chest pressure or chest discomfort, palpitations, edema, orthopnea, syncopal events. RESPIRATORY: + shortness of breath, cough with occasional sputum, wheezing, No hemoptysis. GASTROINTESTINAL: No anorexia, nausea, vomiting or diarrhea, abdominal pain, melena, BRBPR. GENITOURINARY: No dysuria, frequency, urgency or retention. NEUROLOGICAL: No headache, dizziness, syncope, paralysis, ataxia, numbness or tingling in the extremities, focal weakness, change in bowel or bladder control, seizure. MUSCULOSKELETAL: + muscle, back pain, joint pain or stiffness. HEMATOLOGIC: No anemia, bleeding or bruising. LYMPHATICS: No enlarged nodes. No history of splenectomy. PSYCHIATRIC: + history of depression or anxiety. ENDOCRINOLOGIC: No reports of sweating, cold or heat intolerance. No polyuria or polydipsia. ALLERGIES: + rhinitis. Vital Signs Vital Signs Vital Signs: 01/27/22 22:01 01/27/22 22:12 01/27/22 22:35 Temperature 98 F Temperature Source Temporal Pulse Rate 108 H 104 H Respiratory Rate 24 H 18 Respiratory Effort Short of Breath Short of Breath Respiratory Depth Normal Blood Pressure 125/44 H Blood Pressure Mean 71 Pulse Ox 94 94 Oxygen Delivery Method Room Air Room Air Room Air 01/27/22 23:23 01/28/22 00:17 Temperature Temperature Source Pulse Rate 104 H Respiratory Rate 16 17 Respiratory Effort Respiratory Depth Blood Pressure Blood Pressure Mean Pulse Ox 97 91 Oxygen Delivery Method Room Air Weight Weight: 196 lb Body Mass Index (BMI) 34.7 Physical Exam Narrative Physical Examination: General: Awake, alert, oriented x 3 and cooperative, seated upright in the ED bed in no apparent distress, fatigue, note some improvement since aerosols. Skin: Normal color, normal turgor, no icterus, no cyanosis. HEENT: AT/NC, EOMI, PERRLA, mildly dry MM, no carotid bruits or JVD noted. Lungs: Significantly diminished, tight, occasional end expiratory wheeze, mild increased respiratory rate but no distress, no rales or rhonchi. Heart: Mildly tachycardic with regular rhythm; no gallop, rub audible. Abdomen: Soft, obese, obese, NTTP, ND, distant hyperactive BS, no HSM. Extremities: No cyanosis, clubbing, or edema. Neurological: Patient awake, alert, oriented as noted, cognitive function intact; pupils equally reactive to light and accommodation, cranial nerves II-XII grossly normal, moving all 4 extremities, no focal deficits, strength moderately to severely globally decreased secondary to acute presentation. Psychiatric: Affect appears fatigued otherwise normal, no acute evidence of depressive or anxiety feelings. Results Lab / Micro Data Result Diagrams: 01/27/22 22:10 01/27/22 22:10 Labs: Laboratory Results - last 24 hr 01/27/22 22:10: WBC 12.9 H, RBC 3.76 L, Hgb 11.3 L, Hct 34.2 L, MCV 91.0, MCH 30.1, MCHC 33.0, RDW Std Deviation 49.1 H, RDW Coeff of Mat 14.6, Plt Count 268, MPV 10.5, Immature Gran % (Auto) 0.300, Neut % (Auto) 64.9, Lymph % (Auto) 22.0, [place] % (Auto) 11.3 H, Eos % (Auto) 1.2, Baso % (Auto) 0.3, Absolute Neuts (auto) 8.4 H, Absolute Lymphs (auto) 2.83, Nucleated RBC % 0 01/27/22 22:10: Sodium 142, Potassium 4.6, Chloride 110 H, Carbon Dioxide 26.0, Anion Gap 6, BUN 31 H, Creatinine 2.23 H, Estim Creat Clear Calc 21.91, Est GFR (MDRD) Af Amer 29 L, Est GFR (MDRD) Non-Af 24 L, BUN/Creatinine Ratio 13.9, Glucose 109 H, Calcium 9.4, Troponin I High Sens 27 Micro: Microbiology 01/27/22 22:28 Nasal Secretion SARS-CoV-2 & FLU Antigen (Rapid) - Final Radiology Impression Chest X-Ray 01/27/22 22:25 IMPRESSION: Normal x-ray examination of the chest. Electronically Signed: Matti Mazariegos DO at 22:54 EDT , Assessment & Plan Assessment/Plan (1) COPD exacerbation: (2) Hypoxia: (3) MARIANA (acute kidney injury): PLAN: The patient is a 61 y/o F w/ PMHx: Rheumatoid arthritis, Anxiety and Depression, CKD stage III with unclear subtype, Obesity, HTN, HLD, RLS, COPD, Diabetes mellitus type II who presents to the [facility] ED on 01/28/22 with history of onset increased dyspnea, wheezing over the last 48 hours, not improving despite usage of home inhalers with no recent fevers or chills although intermittent occasional productive sputum of green mucus but this is unchanged from prior. #1. Acute on chronic COPD exacerbation w/ Acute Hypoxia associated: Will admit to [facility], maintain on oxygen with wean as tolerated to room air, continue ATC duonebs, PRN albuterol, IV methylprednisolone with prednisone transition, HOB, IS parameters, hold on further abx pending procalcitonin and sputum Cx, administered doxycycline 100 mg x 1 in the ED, additionally will obtain respiratory panel. #2. Acute kidney injury on CKD stage III, unclear subtype: Secondary to likely decreased intake with acute presentation #1. Admission BUN/Cr 31/2.23, prior baseline creatinine noted to be primarily 1.2-1.3. Will hydrate, hold nephrotoxic medications and repeat chemistry in AM. If no improvement would plan FeNa and renal US assessment. Given renal dysfunction will need to hold arava until reassessed. #3. Diabetes mellitus type II with neuropathy: Hold oral home regimen, continue home insulin regimen, ADA diet, accu checks w/ ISS, cautiously continue patient home gabapentin with alterations as needed pending renal function. #4. Hypertension: Holding home lisinopril as well as spironolactone given MARIANA, maintain interim on PRN hydralazine. #5. Hyperlipidemia: We will continue patient on statin therapy. #6. Tobacco Abuse: Encouraged cessation, inpatient consultation per RT, NR if desired. #7. Anxiety and depression: We will continue patient home duloxetine and BuSpar regimen cautiously, hold if renal function worsens further. #8. Obesity: Weight loss and lifestyle changes encouraged. #9. Rheumatoid arthritis: Patient reports that when she was recently placed over the last couple months on Arava which will need to be held given its contraindicated in moderate to severe renal impairment with recommended repeat assessment prior to any resumption consideration. #10. DVT prophylaxis: SCDs, heparin. Charges/Coding Visit Charges Inpatient E&M: 88994 Init Hosp L3
[2022-01-28] MEDS: 0.9% Normal Saline 1,000 ML 150 ML IV (02:09)
[2022-01-28 03:09] LABS: Absolute Lymphocyte Count 0.86 X10^3/uL (0.83-4.51); Absolute Neutrophil Count 8.6 X10^3/uL (2.0-7.7); Basophil# 0.01 X10^3/uL; Basophil% 0.1 % (0-1); Eosinophil# 0.01 X10^3/uL; Eosinophils% 0.1 % (0-5); Hematocrit 30.4 % (37-47); Lymphocyte # 0.86 X10^3/ul (0.83-4.51); Lymphocyte % 8.8 % (19-41); Mean Corp Hgb Conc 32.9 g/dL (32-36); Mean Corpuscular Hgb 29.1 pg (27.0-32.0); Mean Corpuscular Volume 88.4 fL (81-99); Mean Platelet Vol. 10.3 fl (6.2-12.0); Monocyte# 0.31 X10^3/uL; Monocyte% 3.2 % (0-10); NRBC Flagged by Analyzer 0 % (0-5); Neutrophil # 8.56 X10^3/uL (2.7-7.7); Neutrophil % 87.4 % (47-70); Platelet Count 226 K/mm3 (150-450); RBC Distribution Width CV 14.5 % (11.6-14.6); RBC Distribution Width SD 46.5 fl (35.1-43.9); Red Blood Count 3.44 M/mm3 (4.2-5.4); White Blood Count 9.8 K/mm3 (4.4-11.0)
[2022-01-28] MEDS: 0.9% Normal Saline 1,000 ML 125 ML IV ×2 (04:00→11:27)
[2022-01-28 04:14] LABS: ALB/GLOB Ratio 0.8 RATIO (0.9-2.4); AST(SGOT) 21 U/L (15-37); Alanine Aminotransfer ALT/SGPT 21 U/L (13-56); Albumin, Serum 2.8 g/dL (3.2-5.0); Alkaline Phosphatase 103 U/L (45-117); Anion Gap 7 (5-15); BUN 33 mg/dL (7-18); BUN/Creat Ratio 17.3 RATIO (10-20); Chloride 110 mmol/L (98-107); Creatinine, Serum 1.91 mg/dL (0.55-1.02); EST Glomerular Filtration Rate 28 mL/min (>60); Est Glom Filt Rate - Afr Amer 34 mL/min (>60); Estimated Creatinine Clearance 25.59 ml/min; Globulin 3.4 g/dL (2.2-4.2); Glucose 234 mg/dL (74-106); Potassium 4.6 mmol/L (3.5-5.1); Protein, Total 6.2 g/dL (6.4-8.2); Sodium Level 139 mmol/L (136-145)
[2022-01-28 04:23] LABS: Procalcitonin 0.15 ng/mL (0.00-0.09)
[2022-01-28] MEDS: Pregabalin 50 MG Capsule 100 MG PO ×3 (06:13→21:19)
[2022-01-28 06:51] LABS: Bedside Glucose 263 mg/dL (74-106)
[2022-01-28] MEDS: Insulin Lispro 100 UNIT/ML INSULN.PEN SC ×4 (06:51→21:20)
[2022-01-28] MEDS: Ipratropium/Albuterol Sulfate 3 ML AMPUL.NEB INHALATION ×4 (07:44→19:31)
[2022-01-28] MEDS: busPIRone 5 MG Tablet PO ×2 (09:00→21:20)
[2022-01-28] MEDS: DULoxetine Hcl 60 MG Capsule PO (09:00)
[2022-01-28] MEDS: Heparin Injection (Vial) 5,000 UNIT/ML VIAL 5000 UNIT SC ×2 (09:01→21:20)
[2022-01-28] MEDS: Gabapentin 600 MG Tablet PO ×2 (09:01→21:20)
[2022-01-28] MEDS: Tamsulosin HCl 0.4 MG Capsule PO (09:01)
[2022-01-28] MEDS: Acetaminophen 325 MG Tablet 650 MG PO (11:36)
--- NOTE | 2022-01-28 14:09 | PN.HOSP_ITS ---
Subjective Subjective Patient seen and examined prior to discharge. She said she still felt short of breath but it was better than when she was admitted. SHe denied any chest pain, palpitations, dizziness, nausea or vomiting. Review of systems is otherwise negative. Objective Data Objective Data Vital Signs: Vital Signs Temp Pulse Resp BP Pulse Ox 96.7 F L 76 18 133/75 H 94 01/28/22 09:00 01/28/22 11:20 01/28/22 14:03 01/28/22 09:00 01/28/22 11:54 Oxygen Flow Rate (L/min) 3 Oxygen Delivery Method Nasal Cannula Weight: 203 lb 7.787 oz Body Mass Index (BMI) 36.1 Intake & Output: Intake and Output for Last 24 Hours 01/26/22 01/27/22 01/28/22 23:59 23:59 23:59 Intake Total 1728.75 / 1728.75 Balance 1728.75 / 1728.75 Lab / Micro Data Result Diagrams: 01/28/22 02:55 01/28/22 02:55 Labs: Laboratory Results - last 24 hr 01/27/22 22:10: WBC 12.9 H, RBC 3.76 L, Hgb 11.3 L, Hct 34.2 L, MCV 91.0, MCH 30.1, MCHC 33.0, RDW Std Deviation 49.1 H, RDW Coeff of Mat 14.6, Plt Count 268, MPV 10.5, Immature Gran % (Auto) 0.300, Neut % (Auto) 64.9, Lymph % (Auto) 22.0, [place] % (Auto) 11.3 H, Eos % (Auto) 1.2, Baso % (Auto) 0.3, Absolute Neuts (auto) 8.4 H, Absolute Lymphs (auto) 2.83, Nucleated RBC % 0 01/27/22 22:10: Sodium 142, Potassium 4.6, Chloride 110 H, Carbon Dioxide 26.0, Anion Gap 6, BUN 31 H, Creatinine 2.23 H, Estim Creat Clear Calc 21.91, Est GFR (MDRD) Af Amer 29 L, Est GFR (MDRD) Non-Af 24 L, BUN/Creatinine Ratio 13.9, Glucose 109 H, Calcium 9.4, Troponin I High Sens 27 01/28/22 02:55: Procalcitonin 0.15 H 01/28/22 02:55: WBC 9.8, RBC 3.44 L, Hgb 10.0 L, Hct 30.4 L, MCV 88.4, MCH 29.1, MCHC 32.9, RDW Std Deviation 46.5 H, RDW Coeff of Mat 14.5, Plt Count 226, MPV 10.3, Immature Gran % (Auto) 0.400, Neut % (Auto) 87.4 H, Lymph % (Auto) 8.8 L, [place] % (Auto) 3.2, Eos % (Auto) 0.1, Baso % (Auto) 0.1, Absolute Neuts (auto) 8.6 H, Absolute Lymphs (auto) 0.86, Nucleated RBC % 0 01/28/22 02:55: Sodium 139, Potassium 4.6, Chloride 110 H, Carbon Dioxide 22.0, Anion Gap 7, BUN 33 H, Creatinine 1.91 H, Estim Creat Clear Calc 25.59, Est GFR (MDRD) Af Amer 34 L, Est GFR (MDRD) Non-Af 28 L, BUN/Creatinine Ratio 17.3, Glucose 234 H, Calcium 9.0, Total Bilirubin 0.40, AST 21, ALT 21, Alkaline Phosphatase 103, Total Protein 6.2 L, Albumin 2.8 L, Globulin 3.4, Albumin/Globulin Ratio 0.8 L 01/28/22 06:45: POC Glucose 263 H Micro: Microbiology 01/28/22 01:40 Mucosa - Nasopharyngeal Respiratory Panel (PCR) - Final Rhinovirus 01/27/22 22:28 Nasal Secretion SARS-CoV-2 & FLU Antigen (Rapid) - Final Radiography Diagnostic Testing: Radiology Impression Chest X-Ray 01/27/22 22:25 IMPRESSION: Normal x-ray examination of the chest. Electronically Signed: Matti Mazariegos DO at 22:54 EDT , Physical Exam Const alert, oriented x3 and no apparent distress Orientation / Consciousness: lethargic Exam Limitations: no limitations HEENT head/scalp atraumatic, moist oral mucous membranes and oropharynx normal Head and Scalp: normocephalic Eyes PERRL, EOMs intact bilaterally and conjunctivae normal Neck no lymphadenopathy, supple and no JVD Resp Resp Narrative: mildly diminished breath sounds bibasally, no wheezes or crackles. On 3L of oxygen by nasal canula Cardio regular rate, regular rhythm, S1 normal heart sound, S2 normal heart sound and no murmurs GI normal to inspection, nondistended, normoactive bowel sounds and soft to palpation Extremity normal to inspection, full ROM and no clubbing, cyanosis or edema Peripheral Pulses: Yes pulses 2+ throughout Skin no rashes or lesions noted Neuro oriented x3, CN's II-XII intact bilaterally and moves all extremities Sensorium / Orientation: awake and alert Psych affect normal Assessment & Plan Assessment/Plan (1) COPD exacerbation: (2) Rhinovirus infection: PLAN: #Acute COPD exacerbation * On 3 L of oxygen. Titrate oxygen to maintain saturation above 90%. Breathing treatments bronchodilators. * IV Solu-Medrol. * Respiratory panel was positive for rhinovirus infection. * #Upper respiratory tract infection due to rhinovirus infection. * on 3L of oxygen. Titrate to maintain sats >90% * breathing treatment with bronchodilators * supportive care * #Tej oN CKD * Creatinine was 2.23 with a baseline of around 1.2. * Hydrate gently with IV fluids and trend creatinine. * Cr is now down to 1.91 * #Type 2 diabetes mellitus with neuropathy * On gabapentin. Oral meds on hold. Insulin sliding scale. Checks ACH S. * #Hypertension: Lisinopril and spironolactone on hold. IV hydralazine. #Hyperlipidemia: On statin\ #Nicotine dependence: Counseled to quit #History of rheumatoid arthritis. On leflunomide. This is on hold currently due to kidney impairment. DVT prophylaxis: heparin Charges/Coding Visit Charges Inpatient E&M: 00139 Subs Hosp L2
--- NOTE | 2022-01-28 15:15 | CASEMGMT ---
Addendum entered by Melba Gonzalez 01/28/22 16:35: Pt has signed up for [facility] Pt Link--pulse ox will be provided with the kit that will be delivered to pt's home. Original Note: RN CM [facility] OFFICER CM to room to meet with patient for initial transition planning/care coordination assessment. PARIS TREVIÑO introduced self and role at [facility]. Pt voices understanding and consents to assessment at this time. Pt sitting up in chair in room in no distress at this time. Pt is A/O at this time and answers all questions appropriately. Care providers, pharmacy, and demographics verified/updated at this time. PCP: MARGA Armando Specialists: Dr Chen--rheumatology @ [facility], Dr Cohen--pain mgmt in [place] Preferred Pharmacy: [facility] Retail Insurance: [employer] Prescription Benefit: Yes Living Will/HPOA: Pt does not currently have LW/HCPOA and declines info at this time. Pt made aware that she can contact SW as an out-pt and make appt in the future if she decides she would like to talk with someone about this or would like to utilize [facility] social work for advanced directive completion. Given [employer] card with information and contact number. Pt expresses understanding. LNOK: Daughter, Amber. Also has a son Living Arrangements: Lives w/dtr, Amber, and 2 grand-sons in one-story home w/2 steps to enter. Independent w/ADL's. Dtr gets groceries and runs errands. Pt manages her own medications and appts. Transportation: Pt states drives self and states no transportation concerns at this time. Dtr also drives. DME: States has the following DME: BP cuff. Pt just got script for walker, but has not picked it up yet. Pt has not been using walker while @ [facility]. Pt also states may be interested in extended tub/transfer bench. Pt and dtr provided w/list of DME companies that provide equipment. Pt does not have home O2, pulse ox, or nebulizer. Pt states is interested in getting a pulse ox. Pulse ox placed w/pt's chart and RN to give to pt and instruct on use @ discharge. HHC/SNF: No hx of either. Denies needs and no needs identified. Pt wishes to return home and states has no concerns with going home at time of discharge. CM to follow for home oxygen needs and any further discharge planning/needs. Pt voices no further concerns/needs at this time. Advised pt to ask for CM if any further questions/concerns/needs arise. Voices understanding. PLAN: Home w/family support and discharge plans in place. Home O2 amb testing completed today. Pt does not qualify for Home O2. Collette DOUGLASN RN CM
--- NOTE | 2022-01-28 15:35 | NURSING ---
Approached patient and daughter about [facility] Patient Link program. Patient agreeable, signed consent.
[2022-01-28 16:35] LABS: Bedside Glucose 301 mg/dL (74-106)
[2022-01-28 16:35] LABS: Bedside Glucose 288 mg/dL (74-106)
[2022-01-28] MEDS: Pramipexole Di-HCl 1 MG Tablet PO (21:19)
[2022-01-28] MEDS: Atorvastatin Calcium 80 MG Tablet PO (21:20)
[2022-01-28 21:35] LABS: Bedside Glucose 307 mg/dL (74-106)
[2022-01-28] MEDS: Insulin Glargine-YFGN 100 UNIT/ML Pen 20 UNIT SC (22:08)
[2022-01-29 01:00] VITALS: BP 119/73; PULSE 93; RESP 18; TEMP 36.6; O2SAT 92
[2022-01-29 06:00] VITALS: BP 121/78; PULSE 88; RESP 18; TEMP 36.5; O2SAT 91
[2022-01-29] MEDS: Pregabalin 50 MG Capsule 100 MG PO (06:45)
[2022-01-29] MEDS: 0.9% Saline Lock 10 ML Syringe IV (06:45)
[2022-01-29] MEDS: Insulin Lispro 100 UNIT/ML INSULN.PEN SC (06:48)
[2022-01-29 06:52] LABS: Absolute Lymphocyte Count 0.77 X10^3/uL (0.83-4.51); Absolute Neutrophil Count 9.1 X10^3/uL (2.0-7.7); Hematocrit 29.9 % (37-47); Hemoglobin 9.5 g/dL (12.0-15.0); Lymphocyte # 0.77 X10^3/ul (0.83-4.51); Lymphocyte % 7.4 % (19-41); Mean Corp Hgb Conc 31.8 g/dL (32-36); Mean Corpuscular Hgb 29.1 pg (27.0-32.0); Mean Corpuscular Volume 91.4 fL (81-99); Mean Platelet Vol. 10.5 fl (6.2-12.0); Monocyte# 0.49 X10^3/uL; Monocyte% 4.7 % (0-10); NRBC Flagged by Analyzer 0 % (0-5); Neutrophil # 9.08 X10^3/uL (2.7-7.7); Neutrophil % 86.7 % (47-70); Platelet Count 272 K/mm3 (150-450); RBC Distribution Width CV 14.6 % (11.6-14.6); RBC Distribution Width SD 49.4 fl (35.1-43.9); Red Blood Count 3.27 M/mm3 (4.2-5.4); White Blood Count 10.5 K/mm3 (4.4-11.0)
[2022-01-29] MEDS: Acetaminophen 325 MG Tablet 650 MG PO (06:53)
[2022-01-29 06:56] LABS: Bedside Glucose 323 mg/dL (74-106)
[2022-01-29 07:14] LABS: Anion Gap 2 (5-15); BUN 39 mg/dL (7-18); BUN/Creat Ratio 23.9 RATIO (10-20); Calcium,Total 8.6 mg/dL (8.5-10.1); Chloride 110 mmol/L (98-107); Creatinine, Serum 1.63 mg/dL (0.55-1.02); EST Glomerular Filtration Rate 34 mL/min (>60); Est Glom Filt Rate - Afr Amer 41 mL/min (>60); Estimated Creatinine Clearance 29.98 ml/min; Glucose 310 mg/dL (74-106); Sodium Level 139 mmol/L (136-145)
[2022-01-29 07:47] VITALS: BP 122/71; PULSE 106; RESP 16; TEMP 36.5; O2SAT 92
[2022-01-29 07:50] VITALS: O2SAT 90; O2SAT 92
[2022-01-29] MEDS: Ipratropium/Albuterol Sulfate 3 ML AMPUL.NEB INHALATION (07:53)
[2022-01-29 07:55] VITALS: PULSE 104; RESP 20; O2SAT 91
[2022-01-29 08:02] VITALS: PULSE 106; RESP 18; O2SAT 95
[2022-01-29] MEDS: Tamsulosin HCl 0.4 MG Capsule PO (08:27)
[2022-01-29] MEDS: busPIRone 5 MG Tablet PO (08:27)
[2022-01-29] MEDS: DULoxetine Hcl 60 MG Capsule PO (08:27)
[2022-01-29] MEDS: Heparin Injection (Vial) 5,000 UNIT/ML VIAL 5000 UNIT SC (08:29)
[2022-01-29] MEDS: Gabapentin 600 MG Tablet PO (08:31)
--- NOTE | 2022-01-29 09:23 | PN.HOSP_ITS ---
Subjective Subjective Patient seen and examined Objective Data Objective Data Vital Signs: Vital Signs Temp Pulse Resp BP Pulse Ox 97.7 F L 106 H 18 122/71 H 95 01/29/22 07:47 01/29/22 08:02 01/29/22 08:02 01/29/22 07:47 01/29/22 08:02 Oxygen Flow Rate (L/min) 3 Oxygen Delivery Method Room Air Weight: 202 lb 13.204 oz Body Mass Index (BMI) 36.1 Intake & Output: Intake and Output for Last 24 Hours 01/27/22 01/28/22 01/29/22 23:59 23:59 23:59 Intake Total 3208.75 / 3208.75 Balance 3208.75 / 3208.75 Lab / Micro Data Result Diagrams: 01/29/22 06:25 01/29/22 06:25 Labs: Laboratory Results - last 24 hr 01/28/22 11:28: POC Glucose 288 H 01/28/22 16:15: POC Glucose 301 H 01/28/22 21:17: POC Glucose 307 H 01/29/22 06:25: WBC 10.5, RBC 3.27 L, Hgb 9.5 L, Hct 29.9 L, MCV 91.4, MCH 29.1, MCHC 31.8 L, RDW Std Deviation 49.4 H, RDW Coeff of Mat 14.6, Plt Count 272, MPV 10.5, Immature Gran % (Auto) 1.200 H, Neut % (Auto) 86.7 H, Lymph % (Auto) 7.4 L , [place] % (Auto) 4.7, Eos % (Auto) 0.0, Baso % (Auto) 0.0, Absolute Neuts (auto) 9.1 H, Absolute Lymphs (auto) 0.77 L, Nucleated RBC % 0 01/29/22 06:25: Sodium 139, Potassium 5.0, Chloride 110 H, Carbon Dioxide 27.0, Anion Gap 2 L, BUN 39 H, Creatinine 1.63 H, Estim Creat Clear Calc 29.98, Est GFR (MDRD) Af Amer 41 L, Est GFR (MDRD) Non-Af 34 L, BUN/Creatinine Ratio 23.9 H , Glucose 310 H, Calcium 8.6 01/29/22 06:44: POC Glucose 323 H Micro: Microbiology 01/28/22 01:40 Mucosa - Nasopharyngeal Respiratory Panel (PCR) - Final Rhinovirus 01/27/22 22:28 Nasal Secretion SARS-CoV-2 & FLU Antigen (Rapid) - Final
--- NOTE | 2022-01-29 09:25 | DS.PCM_ITS ---
Providers Date of Admission: 01/28/22 Primary Care Physician: YA Levy Reason For Visit: COPD EXACERBATION, HYPOXIA, MARIANA Diagnosis Discharge Diagnosis (1) COPD exacerbation: Status: Chronic Code(s): J44.1 - Chronic obstructive pulmonary disease with (acute) exacerbation (2) Rhinovirus infection: Status: Acute Code(s): B34.8 - Other viral infections of unspecified site (3) URTI (acute upper respiratory infection): Status: Acute Code(s): J06.9 - Acute upper respiratory infection, unspecified (4) Rhinovirus infection: Status: Acute Code(s): B34.8 - Other viral infections of unspecified site Medications at Discharge Home Medications ergocalciferol (vitamin D2) 50,000 unit PO MARTELL 02/28/14 gabapentin 600 mg PO BID 02/28/14 lisinopril 10 mg PO DAILY 02/28/14 spironolactone 50 mg PO DAILY 02/28/14 duloxetine 60 mg PO DAILY 02/17/18 ropinirole 2 mg PO QHS 02/17/18 buspirone 5 mg PO BID #60 tab 02/18/18 atorvastatin 80 mg tablet 40 mg PO QDAY 03/01/18 insulin glargine 100 unit/mL subcutaneous solution 20 unit SC QHS ml 03/01/18 pregabalin 100 mg capsule 100 mg PO TID 03/01/18 tamsulosin 0.4 mg PO DAILY #30 cap 04/26/20 Trulicity 0.75 mg SUBCUT QWEEK 01/27/22 budesonide-formoterol [Symbicort] 2 puff INHALATION Q12H 01/27/22 prednisone 40 mg PO DAILY #10 tab 01/29/22 Hospital Course Operations None Procedures None Summary of Care Provided Minutes Spent on Discharge: 45 Hospital Course: Patient is a 61-year-old female with an extensive past medical history as outlined was admitted through the ED on 01/28/2022 with a complaint of shortness of breath with associated wheezing which was not improving despite use of home inhalers. She denied any fever or chills but admitted to an occasional cough which is productive of greenish sputum. She had denied any ill contacts. COVID test was negative and chest x-ray showed no acute cardiopulmonary process. She was admitted and managed for acute exacerbation of COPD. She was started on breathing treatments of bronchodilators. Her oxygen level dropped to 84% on room air. She was also therefore managed for hypoxia due to acute exacerbation of COPD. Respiratory panel was positive for rhinovirus. His shortness of breath gradually improved with breathing treatments and steroids and she felt much better. She was weaned off of oxygen and she had a walking pulse ox which showed that she did not require any oxygen. She remained stable and was discharged home on 01/29/2022. She was discharged on p.o. prednisone 40 mg daily for 5 days and is follow-up with her primary care doctor within 1 to 2 weeks. Patient seen and examined prior to discharge. She had no active complaints and had an uneventful night. Review of systems otherwise negative. Labs and vitals reviewed. Home medication reviewed and reconciled. Physical Exam Const alert, oriented x3 and no apparent distress General Appearance: cooperative, comfortable and well kempt Exam Limitations: no limitations HEENT normocephalic, head/scalp atraumatic, hearing grossly normal bilaterally, moist oral mucous membranes and oropharynx normal Eyes PERRL, EOMs intact bilaterally and conjunctivae normal Neck no lymphadenopathy, supple and no JVD Resp normal respiratory effort Cardio regular rate, regular rhythm, S1 normal heart sound, S2 normal heart sound and no murmurs Cardio Narrative: on room air. GI normal to inspection, nondistended, normoactive bowel sounds and soft to palpation Extremity normal to inspection, full ROM and no clubbing, cyanosis or edema Skin no rashes or lesions noted Neuro oriented x3, CN's II-XII intact bilaterally and moves all extremities Sensorium / Orientation: awake and alert Psych affect normal Weight / BMI Weight Weight: 202 lb 13.204 oz Body Mass Index (BMI) 36.1 ABG / Lab / Microbiology Data Result Diagrams: 01/29/22 06:25 01/29/22 06:25 Laboratory: Laboratory Results - last 24 hr 01/28/22 11:28: POC Glucose 288 H 01/28/22 16:15: POC Glucose 301 H 01/28/22 21:17: POC Glucose 307 H 01/29/22 06:25: WBC 10.5, RBC 3.27 L, Hgb 9.5 L, Hct 29.9 L, MCV 91.4, MCH 29.1, MCHC 31.8 L, RDW Std Deviation 49.4 H, RDW Coeff of Mat 14.6, Plt Count 272, MPV 10.5, Immature Gran % (Auto) 1.200 H, Neut % (Auto) 86.7 H, Lymph % (Auto) 7.4 L, [place] % (Auto) 4.7, Eos % (Auto) 0.0, Baso % (Auto) 0.0, Absolute Neuts (auto) 9.1 H, Absolute Lymphs (auto) 0.77 L, Nucleated RBC % 0 01/29/22 06:25: Sodium 139, Potassium 5.0, Chloride 110 H, Carbon Dioxide 27.0, Anion Gap 2 L, BUN 39 H, Creatinine 1.63 H, Estim Creat Clear Calc 29.98, Est GFR (MDRD) Af Amer 41 L, Est GFR (MDRD) Non-Af 34 L, BUN/Creatinine Ratio 23.9 H , Glucose 310 H, Calcium 8.6 01/29/22 06:44: POC Glucose 323 H Microbiology: Microbiology 01/28/22 01:40 Mucosa - Nasopharyngeal Respiratory Panel (PCR) - Final Rhinovirus 01/27/22 22:28 Nasal Secretion SARS-CoV-2 & FLU Antigen (Rapid) - Final D/C Instructions Discharge Diet: Low fat / Low cholesterol Discharge Activity: Return to Normal Activity Weight Bearing Status: Weight bearing as tolerated Call your doctor if you observe: Fever of 101 or Higher, Shortness of breath, Dizziness, Swelling in the ankles and Chest pain Meaningful Use Info Meaningful Use Diagnoses (Choose all that apply): None applicable Discharge Plan Admission Admit Date/Time: 01/28/22 01:12 Primary Reason for Your Visit: acute COPD exacerbation Attending Provider: Kyleigh Chandra Primary Care Provider: Eliezer Armando NP Consulting Providers: Alayna Pineda Instructions Patient Instructions: ED COPD Flare Discharge Orders/Prescriptions Prescriptions: New prednisone 20 mg tablet 40 mg PO DAILY Qty: 10 RF: 0 Continued pregabalin [Lyrica] 100 mg capsule 100 mg PO TID RF: 0 atorvastatin 80 mg tablet 40 mg PO QDAY RF: 0 insulin glargine [Lantus U-100 Insulin] 100 unit/mL solution 20 unit SC QHS RF: 0 gabapentin 600 MG tablet 600 mg PO BID RF: 0 lisinopril 10 MG tablet 10 mg PO DAILY RF: 0 ergocalciferol (vitamin D2) 50,000 UNIT capsule 50,000 unit PO MARTELL RF: 0 spironolactone 50 MG tablet 50 mg PO DAILY RF: 0 ropinirole 5 MG tablet 2 mg PO QHS RF: 0 duloxetine 60 MG capsule,delayed release(DR/EC) 60 mg PO DAILY RF: 0 buspirone 5 MG tablet 5 mg PO BID Qty: 60 RF: 0 tamsulosin 0.4 MG capsule 0.4 mg PO DAILY Qty: 30 RF: 0 Trulicity 0.75 mg/0.5 mL pen injector 0.75 mg SUBCUT QWEEK RF: 0 budesonide-formoterol [Symbicort] 160-4.5 mcg/actuation Hfa Aerosol Inhaler 2 puff INHALATION Q12H RF: 0 Referrals / Follow Up: Eliezer Armando NP, CERTIFIED LOW VISION THERAPIST-C [Primary Care Provider] - 3-5 Days Disposition Disposition (needs filled in before D/C Order can be placed): Home, Self Care Charges/Coding Visit Charges Inpatient E&M: 33736 Disch Hosp
--- NOTE | 2022-01-29 10:24 | NURSING ---
pt stated that primary dr has left [place] and now practicing in [place] and she will will make u/p appt on my chart
--- NOTE | 2022-01-29 10:38 | CASEMGMT ---
PARIS TREVIÑO NOTE: Pt screened with [facility] Palliative Care Screening Tool for COPD, pt did not meet criteria. Collette ADHIKARI RN CM
== END 2022-01-29 10:48 | disposition home or self-care (01) | DRG 140 ==
LOC: ED 01-28 00:22 → PCU 01-28 01:49
PROVIDERS: Emergency Medicine; Admitting Provider Family Medicine; Emergency Provider Emergency Medicine; PCP Nurse Practitioner Primary Care; Visit Provider Student in an Organized Health Care Education/Training Program
DX: J44.1 Chronic obstructive pulmonary disease with (acute) exacerbation (principal); N17.9 Acute kidney failure, unspecified; E11.40 Type 2 diabetes mellitus with diabetic neuropathy, unspecified; E11.22 Type 2 diabetes mellitus with diabetic chronic kidney disease; Z79.4 Long term (current) use of insulin; M06.9 Rheumatoid arthritis, unspecified; N18.30 Chronic kidney disease, stage 3 unspecified; E78.5 Hyperlipidemia, unspecified; I12.9 Hypertensive chronic kidney disease with stage 1 through stage 4 chronic kidney disease, or unspecified chronic kidney disease; F17.210 Nicotine dependence, cigarettes, uncomplicated; F41.9 Anxiety disorder, unspecified; J06.9 Acute upper respiratory infection, unspecified; B97.89 Other viral agents as the cause of diseases classified elsewhere; Z20.822 Contact with and (suspected) exposure to COVID-19; F32.A Depression, unspecified; Z79.899 Other long term (current) drug therapy; Z79.51 Long term (current) use of inhaled steroids; E66.9 Obesity, unspecified; Z68.34 Body mass index [BMI] 34.0-34.9, adult
CPT/HCPCS: 36415; 71045; 80048; 80053; 82962; 84145; 84484; 85025; 87428; 87633; 93005; 94640; 97162; 97166; 99251; 99285; 99406; J7030; A4216; G0463

== ENCOUNTER 2022-04-13 15:45 | Emergency (ER) | payer MEDICAID, SELFPAY ==
[2022-04-13 15:45] VITALS: BP 130/65; PULSE 95; RESP 16; TEMP 36.6; O2SAT 95; BMI 35.4
--- NOTE | 2022-04-13 16:02 | EDS_ITS ---
HPI History of Present Illness Chief Complaint: Complaint Informant: patient Onset/Context/Timing Onset: Today Narrative Narrative: Patient presents with the urge to urinate but unable to pass much urine today. She states she feels it to go but can get a couple trickles out and does have pain when she does urinate. She had a history of frequent UTIs when she had bladder stones but states since those were removed she really had not had issues. She follows with a urologist in [place]. She also complains of bilateral lower extremity swelling for the past 5 weeks. She states her primary care physician thought it was because she is sitting more because of chronic back pain. She is currently on spironolactone as well as a half tab of Lasix daily. She states she is tried exercises but cannot get the swelling to go down. [facility] Medical History Anxiety and depression Arthritis Breast lump Cancer Chronic pain Colon cancer COPD (chronic obstructive pulmonary disease) Depression High cholesterol HTN (hypertension) Neuropathy Recurrent UTI Rheumatic fever Rheumatoid arthritis Seasonal allergies Sleep apnea Smoker Type 2 diabetes mellitus Uterine cancer Vision problem Vitamin deficiency Home Medications ergocalciferol (vitamin D2) 1,250 mcg (50,000 unit) capsule 50,000 unit PO MARTELL SUPPLEMENT 02/28/14 [History Last Taken 01/25/22] gabapentin 600 mg tablet 600 mg PO BID NEUROPATHY 02/28/14 [History Last Taken 02/26/21] lisinopril 10 mg tablet 10 mg PO DAILY HIGH BLOOD PRESSURE 02/28/14 [History Last Taken 01/27/22 08:00] spironolactone 50 mg tablet 50 mg PO DAILY WATER RETENTION 02/28/14 [History Last Taken 01/27/22 08:00] duloxetine 60 mg capsule,delayed release 60 mg PO DAILY NEUROPATHY 02/17/18 [History Last Taken 01/27/22 08:00] ropinirole 5 mg tablet 2 mg PO QHS RESTLESS LEGS 02/17/18 [History Last Taken 01/26/22 18:00] buspirone 5 mg tablet 5 mg PO BID #60 tabs 02/18/18 [Rx Last Taken 01/27/22 18:00] atorvastatin 80 mg tablet 40 mg PO QDAY cholesterol 03/01/18 [History Last Taken 01/27/22 18:00] insulin glargine 100 unit/mL subcutaneous solution (Lantus U-100 Insulin) 20 unit subcut QHS dm 03/01/18 [History Last Taken 01/26/22] pregabalin 100 mg capsule (Lyrica) 100 mg PO TID pain 03/01/18 [History Last Taken 01/27/22] tamsulosin 0.4 mg capsule 0.4 mg PO DAILY #30 caps 04/26/20 [Rx Last Taken 01/27/22 08:00] budesonide-formoterol HFA 160 mcg-4.5 mcg/actuation aerosol inhaler (Symbicort) 2 puff inhalation Q12H COPD 01/27/22 [History Last Taken 01/26/22 18:00] dulaglutide 0.75 mg/0.5 mL subcutaneous pen injector (Trulicity) 0.75 mg subcut QWEEK Diabetes 01/27/22 [History Last Taken 01/27/22] prednisone 20 mg tablet 40 mg PO DAILY #10 tabs 01/29/22 [Rx Last Taken Unknown] albuterol sulfate 2.5 mg/0.5 mL solution for nebulization 2.5 mg (0.5 mL) inhalation Q2H PRN shortness of breath or wheezing #30 ea 01/31/22 [Rx Last Taken Unknown] ipratropium 0.5 mg-albuterol 3 mg (2.5 mg base)/3 mL nebulization soln 3 ml inhalation Q6H 7 days #90 mL 01/31/22 [Rx Last Taken Unknown] sulfamethoxazole 800 mg-trimethoprim 160 mg tablet (Bactrim DS) 0.5 tab PO BID #3 tabs 04/13/22 [Rx Last Taken Unknown] Allergy/AdvReac Type Severity Reaction Status Date / Time clindamycin Allergy Swelling Verified 04/13/22 15:47 metformin AdvReac Nausea Verified 04/13/22 15:47 Family History Father Arthritis Cancer Diabetes Heart disease Hypertension Mother Hypertension Sister Arthritis Lupus Daughter Kidney stones Surgical History Bowel obstruction History of hysterectomy for cancer tumer removed from colon Social History household members: family Smoking Status: Current every day smoker tobacco type: cigarettes alcohol intake: never substance use type: does not use ROS ROS ED Constitutional Constitutional ED: Denies chills or fever(s) Eyes Eyes: Denies change in vision or discharge from eye(s) ENT ENT ED: Denies discharge from eye(s), rhinorrhea or sore throat Cardiovascular Cardiovascular: Denies chest pain or palpitations Respiratory/Chest Respiratory/Chest: Denies cough or dyspnea Gastrointestinal Gastrointestinal: Denies abdominal pain, diarrhea, nausea or vomiting Genitourinary Genitourinary ED: Reports difficulty urinating and dysuria Musculoskeletal Musculoskeletal: Reports back pain and extremity pain Integumentary Denies Abrasions or rash Neurologic Neurologic: Denies headache(s) or weakness Psychiatric Psychiatric: Denies anxiety or depression Allergic/Immunologic Allergic/Immunologic ED: Denies lip swelling or urticaria EXAM Physical Exam Const Vital Signs: 04/13/22 15:45 Temperature 97.8 F Temperature Source Temporal Pulse Rate 95 Respiratory Rate 16 Blood Pressure 130/65 H Blood Pressure Mean 86 Pulse Ox 95 Oxygen Delivery Method Room Air Positive well nourished and well developed General Appearance ED: well developed HEENT Reports normocephalic and head/scalp atraumatic Eyes PERRL and EOMs intact bilaterally Neck supple Chest Wall inspection of chest normal and palpation of chest normal Resp normal respiratory effort and clear to auscultation bilaterally Cardio regular rate and regular rhythm GI normal to inspection, nondistended, normoactive bowel sounds Palpation: soft and tender suprapubic Extremity Extremity Narrative: 3+ bilateral lower extremity edema. No erythema or sign of skin infection. Neuro oriented x3 and no sensory deficits noted Sensorium / Orientation: alert Motor Exam: strength 5/5 throughout Psych mental status grossly normal Skin no rashes or lesions noted MDM MDM MDM Narrative Medical decision making narrative: Bladder scan was performed with over 400 cc noted. Gaffney catheter placed. Lab work obtained. Urinalysis ordered. Lab Data Attestation: I reviewed the patient's lab results. Labs: Laboratory Results - last 24 hr 04/13/22 04/13/22 04/13/22 16:10 16:10 16:10 WBC 8.7 RBC 3.40 L Hgb 9.5 L Hct 30.5 L MCV 89.7 MCH 27.9 MCHC 31.1 L RDW Std Deviation 43.9 RDW Coeff of Mat 13.4 Plt Count 268 MPV 9.6 Immature Gran % (Auto) 0.300 Neut % (Auto) 72.2 H Lymph % (Auto) 17.2 L [place] % (Auto) 7.6 Eos % (Auto) 2.5 Baso % (Auto) 0.2 Absolute Neuts (auto) 6.3 Absolute Lymphs (auto) 1.50 Nucleated RBC % 0 Sodium 139 Potassium 5.4 H Chloride 110 H Carbon Dioxide 23.0 Anion Gap 6 BUN 35 H Creatinine 1.75 H Estim Creat Clear Calc 27.93 Est GFR (MDRD) Af Amer 38 L Est GFR (MDRD) Non-Af 31 L BUN/Creatinine Ratio 20.0 Glucose 101 Calcium 9.3 B-Natriuretic Peptide 47.0 Urine Color Urine Clarity Urine pH Ur Specific [place] Urine Protein Urine Glucose (UA) Urine Ketones Urine Occult Blood Urine Nitrite Urine Bilirubin Urine Urobilinogen Ur Leukocyte Esterase Urine RBC Urine WBC Ur Squamous Epith Cells Urine Bacteria Urine Mucus 04/13/22 16:35 WBC RBC Hgb Hct MCV MCH MCHC RDW Std Deviation RDW Coeff of Mat Plt Count MPV Immature Gran % (Auto) Neut % (Auto) Lymph % (Auto) [place] % (Auto) Eos % (Auto) Baso % (Auto) Absolute Neuts (auto) Absolute Lymphs (auto) Nucleated RBC % Sodium Potassium Chloride Carbon Dioxide Anion Gap BUN Creatinine Estim Creat Clear Calc Est GFR (MDRD) Af Amer Est GFR (MDRD) Non-Af BUN/Creatinine Ratio Glucose Calcium B-Natriuretic Peptide Urine Color Straw Urine Clarity Sl. Cloudy Urine pH 7.0 Ur Specific [place] 1.005 Urine Protein 30 H Urine Glucose (UA) Normal Urine Ketones Negative Urine Occult Blood 25 H Urine Nitrite Negative Urine Bilirubin Negative Urine Urobilinogen Normal Ur Leukocyte Esterase 500 H Urine RBC 0-5 SEEN Urine WBC 10-25 SEEN Ur Squamous Epith Cells 0-5 SEEN Urine Bacteria 4+ Urine Mucus 0 SEEN Treatment and Re-Evaluation Narrative: Lab work reveals chronic renal insufficiency near baseline. Potassium is slightly elevated at 5.4. BNP is normal. Urinalysis does show infection with 4+ bacteria and 10-25 white cells. Urine will be sent for culture. On repeat examination patient has 1200 cc of urine in her Gaffney catheter bag. Leg bag will be provided and she will continue the Gaffney catheter. I will give her a half a tab of Bactrim DS based on her renal dosing. She will be referred to Dr. Johnson for follow-up as she would prefer to be seen locally rather than traveling to [place]. Return instructions provided. Discharge Plan Triage Chief Complaint: Complaint Other Complaint: Edema ED Provider: Alisson Lombardi Dx/Rx/DC Orders Clinical Impression: Urinary retention, UTI (urinary tract infection), Edema, peripheral Instructions: ED Peripheral Edema, Bilateral, ED Urinary Retention, Female, ED Cystitis Female Adult Prescriptions: New sulfamethoxazole-trimethoprim [Bactrim DS] 800-160 mg tablet 0.5 tab PO BID Qty: 3 0RF No Action pregabalin [Lyrica] 100 mg capsule 100 mg PO TID atorvastatin 80 mg tablet 40 mg PO QDAY insulin glargine [Lantus U-100 Insulin] 100 unit/mL solution 20 unit SC QHS gabapentin 600 MG tablet 600 mg PO BID Label Comments: FOR NEUROPATHY PAIN lisinopril 10 MG tablet 10 mg PO DAILY Label Comments: BLOOD PRESSURE STATES CURRENTLY TAKING ergocalciferol (vitamin D2) 50,000 UNIT capsule 50,000 unit PO MARTELL Label Comments: SUPPLEMENT takes on sundays spironolactone 50 MG tablet 50 mg PO DAILY Label Comments: STATES STILL TAKING ropinirole 5 MG tablet 2 mg PO QHS Label Comments: STATES STILL TAKING duloxetine 60 MG capsule,delayed release(DR/EC) 60 mg PO DAILY Label Comments: STATES HAD YESTERDAY MORNING buspirone 5 MG tablet 5 mg PO BID Qty: 60 0RF tamsulosin 0.4 MG capsule 0.4 mg PO DAILY Qty: 30 0RF Trulicity 0.75 mg/0.5 mL pen injector 0.75 mg SUBCUT QWEEK Label Comments: inject 0.75 MG SUBCUTANEOUSLY ONE TIME A WEEK DISCARD PEN AFTER USE budesonide-formoterol [Symbicort] 160-4.5 mcg/actuation Hfa Aerosol Inhaler 2 puff INHALATION Q12H prednisone 20 mg tablet 40 mg PO DAILY Qty: 10 0RF albuterol sulfate 2.5 mg/0.5 mL solution for nebulization 2.5 mg inhalation Q2H PRN (Reason: shortness of breath or wheezing) Qty: 30 1RF ipratropium-albuterol 0.5 mg-3 mg(2.5 mg base)/3 mL solution for nebulization 3 ml inhalation Q6H 7 Days Qty: 90 0RF Primary Care Provider: Eliezer Armando NP Referrals: Abhishek Johnson MD [Med Staff - Active Staff] - 1 Week Eliezer Armando NP, TECH[employer]Y IN[employer]ION SPECIALIST[employer] [Primary Care Provider] - Disposition Disposition: Home, Self Care
[2022-04-13 16:32] LABS: Absolute Neutrophil Count 6.3 X10^3/uL (2.0-7.7); Basophil# 0.02 X10^3/uL; Basophil% 0.2 % (0-1); Eosinophil# 0.22 X10^3/uL; Eosinophils% 2.5 % (0-5); Hematocrit 30.5 % (37-47); Hemoglobin 9.5 g/dL (12.0-15.0); Lymphocyte % 17.2 % (19-41); Mean Corp Hgb Conc 31.1 g/dL (32-36); Mean Corpuscular Hgb 27.9 pg (27.0-32.0); Mean Corpuscular Volume 89.7 fL (81-99); Mean Platelet Vol. 9.6 fl (6.2-12.0); Monocyte# 0.66 X10^3/uL; Monocyte% 7.6 % (0-10); NRBC Flagged by Analyzer 0 % (0-5); Neutrophil # 6.28 X10^3/uL (2.7-7.7); Neutrophil % 72.2 % (47-70); Platelet Count 268 K/mm3 (150-450); RBC Distribution Width CV 13.4 % (11.6-14.6); RBC Distribution Width SD 43.9 fl (35.1-43.9); White Blood Count 8.7 K/mm3 (4.4-11.0)
[2022-04-13 16:42] LABS: Mucous, Urine 0 SEEN /hpf (<or=2+)
[2022-04-13 16:46] LABS: Anion Gap 6 (5-15); BUN 35 mg/dL (7-18); Calcium,Total 9.3 mg/dL (8.5-10.1); Chloride 110 mmol/L (98-107); Creatinine, Serum 1.75 mg/dL (0.55-1.02); EST Glomerular Filtration Rate 31 mL/min (>60); Est Glom Filt Rate - Afr Amer 38 mL/min (>60); Estimated Creatinine Clearance 27.93 ml/min; Glucose 101 mg/dL (74-106); Potassium 5.4 mmol/L (3.5-5.1); Sodium Level 139 mmol/L (136-145)
[2022-04-13 17:03] LABS: Color, Urine Straw (Yellow); Glucose, Dipstick Normal (Normal); Ketone-Dipstick Negative (Negative); Leukocyte Esterase-Dipstick 500 /ul (Negative); Nitrite-Dipstick Negative (Negative); Occult Blood-Urine 25 /ul (Negative); Protein-Dipstick 30 mg/dl (Negative); Specific Gravity, Urine 1.005 (1.002-1.030); Urine Bilirubin Dipstick Negative (Negative); Urine Clarity Sl. Cloudy (Clear); Urine Urobilinogen Normal (Normal)
[2022-04-13 18:35] LABS: Red Blood Cells-Urine 0-5 SEEN /hpf (0-5); White Blood Cells 10-25 SEEN /hpf (0-5)
[2022-04-13 18:36] LABS: Bacteria 4+ /hpf (None Seen); Squamous Epithelial Cells - UA 0-5 SEEN /hpf (5-10)
[2022-04-13] MEDS: Smz/Tmp Ds Tablet 0.5 TABLET PO (19:04)
== END 2022-04-13 19:15 | disposition home or self-care (01) ==
PROVIDERS: Emergency Provider Emergency Medicine; PCP Nurse Practitioner Primary Care; Visit Provider Emergency Medicine
DX: N39.0 Urinary tract infection, site not specified (principal); J44.9 Chronic obstructive pulmonary disease, unspecified; E11.40 Type 2 diabetes mellitus with diabetic neuropathy, unspecified; I10 Essential (primary) hypertension; R60.9 Edema, unspecified; G89.29 Other chronic pain; R33.9 Retention of urine, unspecified; E78.00 Pure hypercholesterolemia, unspecified; M54.9 Dorsalgia, unspecified; Z87.440 Personal history of urinary (tract) infections; F17.210 Nicotine dependence, cigarettes, uncomplicated; Z85.038 Personal history of other malignant neoplasm of large intestine
CPT/HCPCS: 51702; 80048; 81001; 83880; 85025; 87077; 87086; 87088; 99285

== ENCOUNTER 2022-06-30 22:35 | Emergency (ER) | payer MEDICAID, SELFPAY ==
[2022-06-30 22:36] VITALS: BP 121/59; PULSE 80; RESP 16; TEMP 36.3; O2SAT 96; BMI 35.4
[2022-07-01] MEDS: Cephalexin 250 MG Capsule 500 MG PO (00:12)
--- NOTE | 2022-07-01 00:12 | EDS_ITS ---
HPI History of Present Illness Chief Complaint: Wound Narrative Narrative: Patient has had some chronic lower extremity edema for the past few months, she has noted some wounds for the past 3 to 4 weeks that are not healing well. No fever chills, there is very slight redness in that region which she has noticed over the past few days. No chest pain or shortness of breath. No abdominal pain. No orthopnea. [facility] Medical History Anxiety and depression Arthritis Breast lump Cancer Chronic pain Colon cancer COPD (chronic obstructive pulmonary disease) Depression High cholesterol HTN (hypertension) Neuropathy Recurrent UTI Rheumatic fever Rheumatoid arthritis Seasonal allergies Sleep apnea Smoker Type 2 diabetes mellitus Uterine cancer Vision problem Vitamin deficiency Home Medications ergocalciferol (vitamin D2) 1,250 mcg (50,000 unit) capsule 50,000 unit PO MARTELL SUPPLEMENT 02/28/14 [History Last Taken 01/25/22] gabapentin 600 mg tablet 600 mg PO BID NEUROPATHY 02/28/14 [History Last Taken 02/26/21] lisinopril 10 mg tablet 10 mg PO DAILY HIGH BLOOD PRESSURE 02/28/14 [History Last Taken 01/27/22 08:00] spironolactone 50 mg tablet 50 mg PO DAILY WATER RETENTION 02/28/14 [History Last Taken 01/27/22 08:00] duloxetine 60 mg capsule,delayed release 60 mg PO DAILY NEUROPATHY 02/17/18 [Hi story Last Taken 01/27/22 08:00] ropinirole 5 mg tablet 2 mg PO QHS RESTLESS LEGS 02/17/18 [History Last Taken 01/26/22 18:00] buspirone 5 mg tablet 5 mg PO BID #60 tabs 02/18/18 [Rx Last Taken 01/27/22 18:00] atorvastatin 80 mg tablet 40 mg PO QDAY cholesterol 03/01/18 [History Last Taken 01/27/22 18:00] insulin glargine 100 unit/mL subcutaneous solution (Lantus U-100 Insulin) 20 unit subcut QHS dm 03/01/18 [History Last Taken 01/26/22] pregabalin 100 mg capsule (Lyrica) 100 mg PO TID pain 03/01/18 [History Last Taken 01/27/22] tamsulosin 0.4 mg capsule 0.4 mg PO DAILY #30 caps 04/26/20 [Rx Last Taken 01/27/22 08:00] budesonide-formoterol HFA 160 mcg-4.5 mcg/actuation aerosol inhaler (Symbicort) 2 puff inhalation Q12H COPD 01/27/22 [History Last Taken 01/26/22 18:00] dulaglutide 0.75 mg/0.5 mL subcutaneous pen injector (Trulicity) 0.75 mg subcut QWEEK Diabetes 01/27/22 [History Last Taken 01/27/22] albuterol sulfate 2.5 mg/0.5 mL solution for nebulization 2.5 mg (0.5 mL) inhalation Q2H PRN shortness of breath or wheezing #30 ea 01/31/22 [Rx Last Taken Unknown] ipratropium 0.5 mg-albuterol 3 mg (2.5 mg base)/3 mL nebulization soln 3 ml inhalation Q6H 7 days #90 mL 01/31/22 [Rx Last Taken Unknown] prednisone 20 mg tablet 40 mg PO DAILY PRN arthritis 06/30/22 [History Last Taken Unknown] cephalexin 500 mg capsule 500 mg PO Q6 #20 caps 07/01/22 [Rx Last Taken Unknown] Allergy/AdvReac Type Severity Reaction Status Date / Time clindamycin Allergy Swelling Verified 06/30/22 22:36 metformin AdvReac Nausea Verified 06/30/22 22:36 Family History Father Arthritis Cancer Diabetes Heart disease Hypertension Mother Hypertension Sister Arthritis Lupus Daughter Kidney stones Surgical History Bowel obstruction History of hysterectomy for cancer tumer removed from colon Social History household members: family Smoking Status: Current every day smoker tobacco type: cigarettes alcohol intake: never substance use type: does not use ROS ROS ED ROS Narrative Past medical history: Reviewed, includes diabetes, hypertension, hypercholesterolemia, obesity, COPD, history of tobacco abuse Medications: Reviewed Social history: Noncontributory Review of systems: All systems negative except as indicated General: No fever Eyes: No visual changes ENT: No upper airway congestion, normal voice Neck: No neck pain Cardiovascular: No chest pain Respiratory: No shortness of breath or cough Gastrointestinal: No abdominal pain, nausea vomiting or diarrhea Genitourinary: No dysuria Musculoskeletal: Lower extremity edema as in HPI. Wounds as in HPI Skin: As above Neurological: No memory loss, confusion or any focal weakness Psych: No recent behavioral changes Hematologic: No easy bleeding or easy bruising EXAM Physical Exam Narrative Exam Narrative: Physical exam General: Patient appears relatively comfortable in the emergency supervisor warping department: Normocephalic, Atraumatic Eyes: Conjunctiva not pale ENT: Moist mucous membranes Neck: Supple, Nontender, No lymphadenopathy Cardiovascular: Regular rate, Regular rhythm Respiratory: No distress, CTA bilaterally Abdomen: Soft, Nontender, Nondistended Back: Nontender, Normal Inspection. Negative for: CVA tenderness Extremities: Symmetric bilateral lower extremity edema, there are 2 anterior wounds with 1 on either side, there are disclamation of the skin no abscesses, very slight breakdown of the skin. There is very slight surrounding erythema no obvious calor. Skin: Normal color, No rash Neurological: Alert, Normal Strength, Normal Sensation Psychological: Normal affect Const Vital Signs: 06/30/22 22:36 Temperature 97.3 F L Temperature Source Temporal Pulse Rate 80 Respiratory Rate 16 Blood Pressure 121/59 H Blood Pressure Mean 79 Pulse Ox 96 Oxygen Delivery Method Room Air MDM MDM MDM Narrative Medical decision making narrative: Patient has a normal work-up. I told her to use compression stockings, otherwise she has early cellulitis which I will treat with Keflex. Anything changes she is to return Lab Data Labs: Laboratory Results - last 24 hr 07/01/22 07/01/22 00:12 00:12 WBC 7.3 RBC 3.29 L Hgb 9.2 L Hct 28.9 L MCV 87.8 MCH 28.0 MCHC 31.8 L RDW Std Deviation 47.3 H RDW Coeff of Mat 14.7 H Plt Count 196 MPV 9.0 Immature Gran % (Auto) 0.300 Neut % (Auto) 66.4 Lymph % (Auto) 21.4 [place] % (Auto) 8.8 Eos % (Auto) 2.6 Baso % (Auto) 0.5 Absolute Neuts (auto) 4.8 Absolute Lymphs (auto) 1.56 Nucleated RBC % 0 Sodium 139 Potassium 5.5 H Chloride 109 H Carbon Dioxide 26.0 Anion Gap 4 L BUN 37 H Creatinine 1.85 H Estim Creat Clear Calc 26.08 Est GFR (MDRD) Af Amer 36 L Est GFR (MDRD) Non-Af 29 L BUN/Creatinine Ratio 20.0 Glucose 89 Calcium 9.4 Total Bilirubin 0.30 AST 15 ALT 17 Alkaline Phosphatase 103 Total Protein 6.6 Albumin 3.2 Globulin 3.4 Albumin/Globulin Ratio 0.9 Discharge Plan Triage Chief Complaint: Wound ED Provider: Emery Beauchamp Dx/Rx/DC Orders Clinical Impression: Cellulitis, Edema Instructions: Cellulitis Dc, ED Lymphedema Prescriptions: New cephalexin 500 mg capsule 500 mg PO Q6 Qty: 20 0RF No Action pregabalin [Lyrica] 100 mg capsule 100 mg PO TID atorvastatin 80 mg tablet 40 mg PO QDAY insulin glargine [Lantus U-100 Insulin] 100 unit/mL solution 20 unit SC QHS gabapentin 600 MG tablet 600 mg PO BID Label Comments: FOR NEUROPATHY PAIN lisinopril 10 MG tablet 10 mg PO DAILY Label Comments: BLOOD PRESSURE STATES CURRENTLY TAKING ergocalciferol (vitamin D2) 50,000 UNIT capsule 50,000 unit PO MARTELL Label Comments: SUPPLEMENT takes on sundays spironolactone 50 MG tablet 50 mg PO DAILY Label Comments: STATES STILL TAKING ropinirole 5 MG tablet 2 mg PO QHS Label Comments: STATES STILL TAKING duloxetine 60 MG capsule,delayed release(DR/EC) 60 mg PO DAILY Label Comments: STATES HAD YESTERDAY MORNING buspirone 5 MG tablet 5 mg PO BID Qty: 60 0RF tamsulosin 0.4 MG capsule 0.4 mg PO DAILY Qty: 30 0RF Trulicity 0.75 mg/0.5 mL pen injector 0.75 mg SUBCUT QWEEK Label Comments: inject 0.75 MG SUBCUTANEOUSLY ONE TIME A WEEK DISCARD PEN AFTER USE budesonide-formoterol [Symbicort] 160-4.5 mcg/actuation Hfa Aerosol Inhaler 2 puff INHALATION Q12H albuterol sulfate 2.5 mg/0.5 mL solution for nebulization 2.5 mg inhalation Q2H PRN (Reason: shortness of breath or wheezing) Qty: 30 1RF ipratropium-albuterol 0.5 mg-3 mg(2.5 mg base)/3 mL solution for nebulization 3 ml inhalation Q6H 7 Days Qty: 90 0RF prednisone 20 mg tablet 40 mg PO DAILY PRN (Reason: arthritis) Primary Care Provider: Eliezer Armando NP Referrals: Eliezer Armando NP, ROAD [employer]LLER [employer] [Primary Care Provider] - 3-5 Days Disposition Disposition: Home, Self Care
[2022-07-01 00:19] LABS: Absolute Lymphocyte Count 1.56 X10^3/uL (0.83-4.51); Absolute Neutrophil Count 4.8 X10^3/uL (2.0-7.7); Basophil# 0.04 X10^3/uL; Basophil% 0.5 % (0-1); Eosinophil# 0.19 X10^3/uL; Eosinophils% 2.6 % (0-5); Hematocrit 28.9 % (37-47); Hemoglobin 9.2 g/dL (12.0-15.0); Lymphocyte # 1.56 X10^3/ul (0.83-4.51); Lymphocyte % 21.4 % (19-41); Mean Corp Hgb Conc 31.8 g/dL (32-36); Mean Corpuscular Volume 87.8 fL (81-99); Monocyte# 0.64 X10^3/uL; Monocyte% 8.8 % (0-10); NRBC Flagged by Analyzer 0 % (0-5); Neutrophil # 4.84 X10^3/uL (2.7-7.7); Neutrophil % 66.4 % (47-70); Platelet Count 196 K/mm3 (150-450); RBC Distribution Width CV 14.7 % (11.6-14.6); RBC Distribution Width SD 47.3 fl (35.1-43.9); Red Blood Count 3.29 M/mm3 (4.2-5.4); White Blood Count 7.3 K/mm3 (4.4-11.0)
[2022-07-01 00:36] LABS: ALB/GLOB Ratio 0.9 RATIO (0.9-2.4); AST(SGOT) 15 U/L (15-37); Alanine Aminotransfer ALT/SGPT 17 U/L (13-56); Albumin, Serum 3.2 g/dL (3.2-5.0); Alkaline Phosphatase 103 U/L (45-117); Anion Gap 4 (5-15); BUN 37 mg/dL (7-18); Calcium,Total 9.4 mg/dL (8.5-10.1); Chloride 109 mmol/L (98-107); Creatinine, Serum 1.85 mg/dL (0.55-1.02); EST Glomerular Filtration Rate 29 mL/min (>60); Est Glom Filt Rate - Afr Amer 36 mL/min (>60); Estimated Creatinine Clearance 26.08 ml/min; Globulin 3.4 g/dL (2.2-4.2); Glucose 89 mg/dL (74-106); Potassium 5.5 mmol/L (3.5-5.1); Protein, Total 6.6 g/dL (6.4-8.2); Sodium Level 139 mmol/L (136-145)
== END 2022-07-01 01:45 | disposition home or self-care (01) ==
PROVIDERS: Emergency Provider Emergency Medicine; PCP Nurse Practitioner Primary Care; Visit Provider Emergency Medicine
DX: L03.90 Cellulitis, unspecified (principal); J44.9 Chronic obstructive pulmonary disease, unspecified; E11.40 Type 2 diabetes mellitus with diabetic neuropathy, unspecified; I10 Essential (primary) hypertension; R60.9 Edema, unspecified; E78.00 Pure hypercholesterolemia, unspecified
CPT/HCPCS: 80053; 85025; 99283

== ENCOUNTER 2022-08-16 12:41 | Inpatient (IN) | payer MEDICAID, SELFPAY ==
[2022-08-16] VITALS (28 sets, daily range): BP systolic 90–121; BP diastolic 47–65; PULSE 77–90; RESP 12–26; TEMP 36–36.7; O2SAT 87–99; BMI 38.0; BMI 34.4
--- NOTE | 2022-08-16 13:14 | EKG12_ITS ---
Test Reason : SOB Blood Pressure : / mmHG Vent. Rate : 082 BPM Atrial Rate : 082 BPM P-R Int : 186 ms QRS Dur : 092 ms QT Int : 344 ms P-R-T Axes : 070 078 047 degrees QTc Int : 401 ms Normal sinus rhythm Normal ECG Confirmed by ERICA BLACK, JV ([id number]), slot editor CHESTER RITTER ([id number]) on 08/19/2022 11:06:53 AM Referred By: AMANDA Confirmed By:JV MALDONADO MD
--- NOTE | 2022-08-16 13:17 | ED.VIS.DYS ---
HPI History of Present Illness Chief Complaint: Shortness of Breath Narrative Narrative: 62-year-old female past medical history of COPD, is supposed to be wearing CPAP at night but does not presents via EMS with increased difficulty breathing since yesterday. Her sister is at the bedside who reports that she has had mental status change and drowsiness today. Patient states she does not wear her CPAP because she does not have the stuff for it. She is a smoker and continues to smoke but is down from 3 packs a day to 2. She does not wear oxygen at home. She states she was last admitted to the hospital for breathing difficulty in February of this year, approximately 4 months ago. She has been having issues with diabetic leg ulcerations on her anterior tibias and has been trying to treat them at home. She denies any fevers or chills. She has an occasional cough. They state that the wheezing began yesterday. [facility] Medical History Anxiety and depression Arthritis Breast lump Cancer Chronic pain Colon cancer COPD (chronic obstructive pulmonary disease) Depression High cholesterol HTN (hypertension) Neuropathy Recurrent UTI Rheumatic fever Rheumatoid arthritis Seasonal allergies Sleep apnea Smoker Type 2 diabetes mellitus Uterine cancer Vision problem Vitamin deficiency Home Medications ergocalciferol (vitamin D2) 1,250 mcg (50,000 unit) capsule 50,000 unit PO MARTELL SUPPLEMENT 02/28/14 [History Last Taken 01/25/22] gabapentin 600 mg tablet 600 mg PO BID NEUROPATHY 02/28/14 [History Last Taken 02/26/21] lisinopril 10 mg tablet 10 mg PO DAILY HIGH BLOOD PRESSURE 02/28/14 [History Last Taken 01/27/22 08:00] spironolactone 50 mg tablet 50 mg PO DAILY WATER RETENTION 02/28/14 [History Last Taken 01/27/22 08:00] duloxetine 60 mg capsule,delayed release 60 mg PO DAILY NEUROPATHY 02/17/18 [History Last Taken 01/27/22 08:00] atorvastatin 80 mg tablet 40 mg PO QDAY cholesterol 03/01/18 [History Last Taken 01/27/22 18:00] insulin glargine 100 unit/mL subcutaneous solution (Lantus U-100 Insulin) 19 unit subcut QHS dm 03/01/18 [History Last Taken 01/26/22] budesonide-formoterol HFA 160 mcg-4.5 mcg/actuation aerosol inhaler (Symbicort) 2 puff inhalation Q12H COPD 01/27/22 [History Last Taken 01/26/22 18:00] dulaglutide 0.75 mg/0.5 mL subcutaneous pen injector (Trulicity) 0.75 mg subcut QWEEK Diabetes 01/27/22 [History Last Taken 01/27/22] albuterol sulfate 2.5 mg/0.5 mL solution for nebulization 2.5 mg (0.5 mL) inhalation Q2H PRN shortness of breath or wheezing #30 ea 01/31/22 [Rx Last Taken Unknown] baclofen 10 mg tablet 10 mg PO TID muscle spasm 08/16/22 [History Last Taken Unknown] bupropion HCl 150 mg tablet,12 hr sustained-release 150 mg PO BID depression 08/16/22 [History Last Taken Unknown] furosemide 20 mg tablet 10 mg PO DAILY water pill 08/16/22 [History Last Taken Unknown] gabapentin 300 mg capsule 300 mg DAILY neuropathy 08/16/22 [History Last Taken Unknown] leflunomide 20 mg tablet 20 mg PO DAILY RA 08/16/22 [History Last Taken Unknown] metoprolol succinate 25 mg tablet,extended release 24 hr 25 mg PO DAILY bp 08/16/22 [History Last Taken Unknown] potassium chloride 10 mEq tablet,extended release 10 meq PO DAILY supplement 08/16/22 [History Last Taken Unknown] pramipexole 0.5 mg tablet 0.5 mg PO BID Check with primary doctor 08/16/22 [History Last Taken Unknown] pregabalin 50 mg capsule 50 mg PO BID pain 08/16/22 [History Last Taken Unknown] tamsulosin 0.4 mg capsule 0.4 mg PO DAILY Check with primary doctor 08/16/22 [History Last Taken Unknown] Allergy/AdvReac Type Severity Reaction Status Date / Time clindamycin Allergy Swelling Verified 08/16/22 12:43 metformin AdvReac Nausea Verified 08/16/22 12:43 Family History Father Arthritis Cancer Diabetes Heart disease Hypertension Mother Hypertension Sister Arthritis Lupus Daughter Kidney stones Surgical History Bowel obstruction History of hysterectomy for cancer tumer removed from colon Social History household members: family Smoking Status: Current every day smoker tobacco type: cigarettes alcohol intake: never substance use type: does not use ROS ROS ED ROS Narrative Constitutional: No fever, no chills. HEENT: No sore throat. No neck pain. No loss of vision. No rhinorrhea. Cardiovascular: No chest pain. No palpitations. No pedal edema. Respiratory: Occasional cough, positive wheezing and shortness of breath beginning yesterday. Abdominal: No abdominal pain. No nausea. No vomiting. Genitourinary: No dysuria. No hematuria. Musculoskeletal: No myalgias. No arthralgias. Neurologic: No headaches. No dizziness. No lightheadedness. Skin: No rash. No change in color. Positive ulcerations on bilateral legs times months. Psychiatric: No depression. No anxiety. EXAM Physical Exam Narrative Exam Narrative: Afebrile. Vital signs noted. HEENT: Normocephalic. Atraumatic. PERRL, EOMI. Neck soft and supple. No point tenderness or step off. Cardiovascular: Regular rate and rhythm. No murmurs, rubs, or gallops appreciated. Respiratory: Mild tachypnea. Decreased breath sounds bilateral lung hardin with occasional expiratory wheezing. Moving a fair amount of air. Gastrointestinal: Abdomen soft, nontender, with normoactive bowel sounds. No rebound or guarding. Neurological: Awake. Alert intermittently. Nonfocal, nonlateralizing. Skin: No rash. Normal color. No pallor. Musculoskeletal: Trace bilateral pedal edema. Full range of motion extremities. Positive skin ulcerations bilateral anterior tibial surfaces. No erythema or purulent drainage noted. Const Vital Signs: 08/16/22 12:43 08/16/22 12:52 08/16/22 12:47 Temperature 98.0 F 98.0 F Temperature Source Oral Oral Pulse Rate 83 83 Respiratory Rate 19 H 19 H Respiratory Effort Respiratory Depth Respiratory Pattern Blood Pressure 90/47 L 90/47 L Blood Pressure Mean 61 61 Pulse Ox 87 95 95 Oxygen Delivery Method Room Air Nasal Cannula Nasal Cannula Oxygen Flow Rate (L/min) 2 2 Fraction of Inspired Oxygen (FIO2) 08/16/22 12:59 08/16/22 13:33 08/16/22 13:33 Temperature Temperature Source Pulse Rate 81 81 Respiratory Rate 16 20 H Respiratory Effort Normal Non-Labored Respiratory Depth Normal Respiratory Pattern Normal Normal Tachypnea Blood Pressure Blood Pressure Mean Pulse Ox 95 Oxygen Delivery Method Nasal Cannula Oxygen Flow Rate (L/min) 2 Fraction of Inspired Oxygen (FIO2) 45 08/16/22 13:33 08/16/22 15:11 08/16/22 15:12 Temperature 97.3 F L Temperature Source Temporal Pulse Rate 90 89 Respiratory Rate 16 17 Respiratory Effort Labored Respiratory Depth Respiratory Pattern Blood Pressure 113/50 L 108/63 Blood Pressure Mean 71 78 Pulse Ox 95 95 Oxygen Delivery Method Bi-pap Bi-pap Bi-pap Oxygen Flow Rate (L/min) Fraction of Inspired Oxygen (FIO2) 08/16/22 14:49 Temperature Temperature Source Pulse Rate Respiratory Rate Respiratory Effort Respiratory Depth Respiratory Pattern Blood Pressure Blood Pressure Mean Pulse Ox 96 Oxygen Delivery Method Oxygen Flow Rate (L/min) Fraction of Inspired Oxygen (FIO2) 35 MDM MDM MDM Narrative Medical decision making narrative: Comprehensive work-up was pursued. Patient was hypoxic at 87% on room air and is now 94 to 95% on 2 L nasal cannula. She was hypotensive upon arrival. My concern is that she is having COPD exacerbation with CO2 retention. I will obtain an ABG and place her on BiPAP because of her drowsiness and mental status changes. ABG shows pH of 7.1 with a PCO2 of 54. CBC shows elevated white count of 13.8 with hemoglobin stable at 8.8. I do not feel she requires blood transfusion currently. Platelet count normal at 208. Electrolyte panel shows potassium elevated 6.9. Her EKG demonstrates normal sinus rhythm at 82 bpm without ectopy or acute ST changes. No peaked T waves. This was interpreted by myself. Lactic acid is normal at 0.6. High-sensitivity troponin 19. She does have a creatinine elevated at 3.83 which I feel is acute on chronic kidney injury. She was given 30 g of Kayexalate orally along with glucose and insulin to bring down her potassium. This will be rechecked. Chest x-ray interpreted by myself shows a new right upper lobe pneumonia. I consider this a severe pneumonia because of her hypoxia and her need for BiPAP. She was started on levofloxacin and Rocephin. Given her hyperkalemia, respiratory failure with mild hypercapnia, severe pneumonia, I do feel that she requires admission. Patient will be discussed with the hospitalist for admission to the ICU. Critical care time 33 minutes. Disposition is admit in guarded condition. Lab Data Attestation: I reviewed the patient's lab results. Labs: Laboratory Results - last 24 hr 08/16/22 08/16/22 08/16/22 12:50 12:50 12:50 WBC 13.8 H RBC 3.24 L Hgb 8.8 L Hct 29.9 L MCV 92.3 MCH 27.2 MCHC 29.4 L RDW Std Deviation 50.8 H RDW Coeff of Mat 15.0 H Plt Count 208 MPV 9.8 Immature Gran % (Auto) 0.400 Neut % (Auto) 80.5 H Lymph % (Auto) 10.6 L [place] % (Auto) 8.3 Eos % (Auto) 0.1 Baso % (Auto) 0.1 Absolute Neuts (auto) 11.1 H Absolute Lymphs (auto) 1.46 Nucleated RBC % 0 Sodium 137 Potassium 6.9 H* Chloride 112 H Carbon Dioxide 22.0 Anion Gap 3 L BUN 53 H Creatinine 3.83 H Estim Creat Clear Calc 12.05 Est GFR (MDRD) Af Amer 15 L Est GFR (MDRD) Non-Af 13 L BUN/Creatinine Ratio 13.8 Glucose 167 H Lactic Acid Calcium 8.7 Troponin I High Sens 19 B-Natriuretic Peptide 107.9 H 08/16/22 08/16/22 13:35 15:33 WBC RBC Hgb Hct MCV MCH MCHC RDW Std Deviation RDW Coeff of Mat Plt Count MPV Immature Gran % (Auto) Neut % (Auto) Lymph % (Auto) [place] % (Auto) Eos % (Auto) Baso % (Auto) Absolute Neuts (auto) Absolute Lymphs (auto) Nucleated RBC % Sodium Potassium 6.9 H* Chloride Carbon Dioxide Anion Gap BUN Creatinine Estim Creat Clear Calc Est GFR (MDRD) Af Amer Est GFR (MDRD) Non-Af BUN/Creatinine Ratio Glucose Lactic Acid 0.6 Calcium Troponin I High Sens B-Natriuretic Peptide ABG Data ABG results: ABG 08/16/22 14:05 Specimen Type ART Sample Site L Brach pH 7.17 L* Bicarbonate Actual 19.7 L Total CO2 21 Base Excess -9 L O2 Saturation 99 O2 % 45 ABG pCO2 54.3 H ABG pO2 159 H Chapo Test Positive O2 Delivery Device BiPAP Crit Call To/Read Back Yes Clinical Comments 14 Radiography Diagnostic Testing: Clinical Impression(s) from Imaging Studies Chest X-Ray 08/16/22 14:36 IMPRESSION: Right upper lobe pneumonia, new since 01/27/2022. Electronically Signed: Josiah Alejandro MD at 15:04 EST , Critical Care Time Critical Care Time: Yes Critical care time (excluding procedures): 30-74 minutes (33), Including time spent:, Discussing w/Patient &/or Family/Stockroom Coordinator, Discussing w/Consultants, Arranging Admission or Transfer and Performing Direct Patient Care at Bedside Discharge Plan Dx/Rx/DC Orders Clinical Impression: Right upper lobe pneumonia, Hyperkalemia, Acute kidney injury superimposed on chronic kidney disease, Acute respiratory failure with hypercapnia, Smoker Disposition Disposition: Acute Care Hospital [facility] Discharge Date/Time: 08/16/22 16:23
[2022-08-16 13:30] LABS: Absolute Lymphocyte Count 1.46 X10^3/uL (0.83-4.51); Absolute Neutrophil Count 11.1 X10^3/uL (2.0-7.7); Basophil# 0.02 X10^3/uL; Basophil% 0.1 % (0-1); Eosinophil# 0.02 X10^3/uL; Eosinophils% 0.1 % (0-5); Hematocrit 29.9 % (37-47); Hemoglobin 8.8 g/dL (12.0-15.0); Lymphocyte # 1.46 X10^3/ul (0.83-4.51); Lymphocyte % 10.6 % (19-41); Mean Corp Hgb Conc 29.4 g/dL (32-36); Mean Corpuscular Hgb 27.2 pg (27.0-32.0); Mean Corpuscular Volume 92.3 fL (81-99); Mean Platelet Vol. 9.8 fl (6.2-12.0); Monocyte# 1.14 X10^3/uL; Monocyte% 8.3 % (0-10); NRBC Flagged by Analyzer 0 % (0-5); Neutrophil # 11.11 X10^3/uL (2.7-7.7); Neutrophil % 80.5 % (47-70); Platelet Count 208 K/mm3 (150-450); RBC Distribution Width SD 50.8 fl (35.1-43.9); Red Blood Count 3.24 M/mm3 (4.2-5.4); White Blood Count 13.8 K/mm3 (4.4-11.0)
[2022-08-16] MEDS: Ipratropium/Albuterol Sulfate 3 ML AMPUL.NEB INHALATION ×2 (13:31→18:52)
[2022-08-16] MEDS: MethylPREDNISolone 125 MG/2 ML Vial IV (13:44)
[2022-08-16] MEDS: 0.9% Normal Saline 1,000 ML 999 ML IV (13:45)
[2022-08-16 13:48] LABS: Anion Gap 3 (5-15); BUN 53 mg/dL (7-18); BUN/Creat Ratio 13.8 RATIO (10-20); Calcium,Total 8.7 mg/dL (8.5-10.1); Chloride 112 mmol/L (98-107); Creatinine, Serum 3.83 mg/dL (0.55-1.02); EST Glomerular Filtration Rate 13 mL/min (>60); Est Glom Filt Rate - Afr Amer 15 mL/min (>60); Estimated Creatinine Clearance 12.05 ml/min; Glucose 167 mg/dL (74-106); Potassium 6.9 mmol/L (3.5-5.1); Sodium Level 137 mmol/L (136-145); Troponin-I HS 19 pg/mL (3.0-54.0)
[2022-08-16 14:08] LABS: Lactic Acid 0.6 mmol/L (0.4-1.9)
[2022-08-16 14:11] LABS: Allen Test Positive; Base Excess -9 mmol/L (-2 to +2); Bicarbonate 19.7 mmol/L (22-26); Blood Gas Specimen Type ART; Comment 14; FI02 45; O2 Delivery Device BiPAP; PO2 159 mmHG (75-100); SITE L Brach; SO2 99 % (95-99); Total Carbon Dioxide 21 mmol/L; pCO2 54.3 mmHg (35-45); pH 7.17 (7.35-7.45)
--- NOTE | 2022-08-16 14:11 | CPS ---
ER Dr. Ventura Notified of ABG results
--- NOTE | 2022-08-16 14:36 | RAD_ITS ---
EXAM: XR CHEST, 1 VIEW CLINICAL INDICATION: Shortness of Breath TECHNIQUE: Frontal view of the chest. This report was created using [employer] report generation technology. COMPARISON: 01/27/2022. FINDINGS: LUNGS AND PLEURAL SPACES: Ill-defined interstitial infiltrates in the right perihilar region and the right upper lobe overlying the right posterior sixth rib. No pneumothorax. No effusion. HEART: Unremarkable. Cardiac silhouette not enlarged. MEDIASTINUM: Central airways and mediastinal contour are unremarkable. BONES/JOINTS: Unremarkable. SOFT TISSUES: Unremarkable. RAD/Chest 1 View (Portable) IMPRESSION: Right upper lobe pneumonia, new since 01/27/2022. Electronically Signed: Josiah Alejandro MD at 15:04 EST ,
[2022-08-16] MEDS: Calcium Gluconate IV 3 GM in Syringe 1 EACH IV (14:42)
[2022-08-16] MEDS: Insulin Lispro 10 UNIT in Syringe 0 ML 6 UNIT IV (14:48)
[2022-08-16] MEDS: Dextrose 50%-Water 25 GM/50 ML DISP.SYRIN IV (14:50)
[2022-08-16] MEDS: Sodium Polystyrene Sulfonate 15 GM/60 ML UDC 30 GM PO ×2 (15:01→20:26)
--- NOTE | 2022-08-16 15:29 | HP.PCM.HOS_ITS ---
HPI - General General Date of Admission: 08/16/22 Date of Service: 08/16/22 HPI Narrative WENDI ADDISON, is a 62 F with a PMH as outlined who presents via the ED on 08/16/2022 with a complaint of shortness of breath. Patient and his spouse be on CPAP but has not been using it. She came in with a complaint of worsening shortness of breath since the day before admission. History was mainly taken from sister and mother as patient was very lethargic. According to her sister, patient's son called patient's sister on the phone that patient was very drowsy and lethargic and not feeling well. 1 sister arrived, patient was barely arousable and so she called the EMS and patient was brought into the hospital. Patient is a smoker and continues to smoke though she had cut down from 3 packs to 2. Sister states she noted she had been coughing whilst in the hospital but could not give any further information about review of systems. Patient was also too lethargic to give any further history. Vitals in the ED were BP of 108/63, WA of 89, RR of 17 and temp of 97.3F, with oxygen sats of 95% on BIPAP. CBC showed WBC of 13.8 with hemoglobin of 8.8 and platelets of 2 8. Chemistry showed sodium of 137 wiht potassium of 6.9, bicarb of 22 and Cr of 3.83. ABG showed pH of 7.17, pCO2 of 54.3mmHg (after she had been placed on bipap), pO2 of 159mmHg. Lactic acid was WNL. EKG showed no acute ST changes and doesnt have any peaked t wave changes. CXR showed right upper lobe pneumonia. She is being admitted to be managed for acute on chronic hypoxic and hypercapnic respiratory failure due to right upper lobe pneumonia, with concern for aspiration pneumonia. [facility] Medical History Anxiety and depression Arthritis Breast lump Cancer Chronic pain Colon cancer COPD (chronic obstructive pulmonary disease) Depression High cholesterol HTN (hypertension) Neuropathy Recurrent UTI Rheumatic fever Rheumatoid arthritis Seasonal allergies Sleep apnea Smoker Type 2 diabetes mellitus Uterine cancer Vision problem Vitamin deficiency Home Medications ergocalciferol (vitamin D2) 1,250 mcg (50,000 unit) capsule 50,000 unit PO MARTELL SUPPLEMENT 02/28/14 [History Last Taken 01/25/22] gabapentin 600 mg tablet 600 mg PO BID NEUROPATHY 02/28/14 [History Last Taken 02/26/21] lisinopril 10 mg tablet 10 mg PO DAILY HIGH BLOOD PRESSURE 02/28/14 [History Last Taken 01/27/22 08:00] spironolactone 50 mg tablet 50 mg PO DAILY WATER RETENTION 02/28/14 [History Last Taken 01/27/22 08:00] duloxetine 60 mg capsule,delayed release 60 mg PO DAILY NEUROPATHY 02/17/18 [History Last Taken 01/27/22 08:00] ropinirole 5 mg tablet 2 mg PO QHS RESTLESS LEGS 02/17/18 [History Last Taken 01/26/22 18:00] atorvastatin 80 mg tablet 40 mg PO QDAY cholesterol 03/01/18 [History Last Taken 01/27/22 18:00] insulin glargine 100 unit/mL subcutaneous solution (Lantus U-100 Insulin) 20 unit subcut QHS dm 03/01/18 [History Last Taken 01/26/22] pregabalin 100 mg capsule (Lyrica) 100 mg PO TID pain 03/01/18 [History Last Taken 01/27/22] tamsulosin 0.4 mg capsule 0.4 mg PO DAILY #30 caps 04/26/20 [Rx Last Taken 01/27/22 08:00] budesonide-formoterol HFA 160 mcg-4.5 mcg/actuation aerosol inhaler (Symbicort) 2 puff inhalation Q12H COPD 01/27/22 [History Last Taken 01/26/22 18:00] dulaglutide 0.75 mg/0.5 mL subcutaneous pen injector (Trulicity) 0.75 mg subcut QWEEK Diabetes 01/27/22 [History Last Taken 01/27/22] albuterol sulfate 2.5 mg/0.5 mL solution for nebulization 2.5 mg (0.5 mL) inhalation Q2H PRN shortness of breath or wheezing #30 ea 01/31/22 [Rx Last Taken Unknown] ipratropium 0.5 mg-albuterol 3 mg (2.5 mg base)/3 mL nebulization soln 3 ml inhalation Q6H 7 days #90 mL 01/31/22 [Rx Last Taken Unknown] prednisone 20 mg tablet 40 mg PO DAILY PRN arthritis 06/30/22 [History Last Taken Unknown] baclofen 10 mg tablet 10 mg PO TID muscle spasm 08/16/22 [History Last Taken Unknown] bupropion HCl 150 mg tablet,12 hr sustained-release 150 mg PO BID depression 08/16/22 [History Last Taken Unknown] Allergy/AdvReac Type Severity Reaction Status Date / Time clindamycin Allergy Swelling Verified 08/16/22 12:43 metformin AdvReac Nausea Verified 08/16/22 12:43 Family History Father Arthritis Cancer Diabetes Heart disease Hypertension Mother Hypertension Sister Arthritis Lupus Daughter Kidney stones Surgical History Bowel obstruction History of hysterectomy for cancer tumer removed from colon Social History household members: family Smoking Status: Current every day smoker tobacco type: cigarettes alcohol intake: never substance use type: does not use ROS Review of Systems ROS Unobtainable: due to encephalopathy Vital Signs Vital Signs Vital Signs: 08/16/22 12:43 08/16/22 12:52 08/16/22 12:47 Temperature 98.0 F 98.0 F Temperature Source Oral Oral Pulse Rate 83 83 Respiratory Rate 19 H 19 H Respiratory Effort Respiratory Depth Respiratory Pattern Blood Pressure 90/47 L 90/47 L Blood Pressure Mean 61 61 Pulse Ox 87 95 95 Oxygen Delivery Method Room Air Nasal Cannula Nasal Cannula Oxygen Flow Rate (L/min) 2 2 Fraction of Inspired Oxygen (FIO2) 08/16/22 12:59 08/16/22 13:33 08/16/22 13:33 Temperature Temperature Source Pulse Rate 81 81 Respiratory Rate 16 20 H Respiratory Effort Normal Non-Labored Respiratory Depth Normal Respiratory Pattern Normal Normal Tachypnea Blood Pressure Blood Pressure Mean Pulse Ox 95 Oxygen Delivery Method Nasal Cannula Oxygen Flow Rate (L/min) 2 Fraction of Inspired Oxygen (FIO2) 45 08/16/22 13:33 08/16/22 15:11 08/16/22 15:12 Temperature 97.3 F L Temperature Source Temporal Pulse Rate 90 89 Respiratory Rate 16 17 Respiratory Effort Labored Respiratory Depth Respiratory Pattern Blood Pressure 113/50 L 108/63 Blood Pressure Mean 71 78 Pulse Ox 95 95 Oxygen Delivery Method Bi-pap Bi-pap Bi-pap Oxygen Flow Rate (L/min) Fraction of Inspired Oxygen (FIO2) 08/16/22 14:49 Temperature Temperature Source Pulse Rate Respiratory Rate Respiratory Effort Respiratory Depth Respiratory Pattern Blood Pressure Blood Pressure Mean Pulse Ox 96 Oxygen Delivery Method Oxygen Flow Rate (L/min) Fraction of Inspired Oxygen (FIO2) 35 Weight Weight: 208 lb 5.389 oz Body Mass Index (BMI) 38.0 Physical Exam Const Constitutional Narrative: Lethargic, somnolent and barely arousable Orientation / Consciousness: lethargic HEENT normocephalic, head/scalp atraumatic, hearing grossly normal bilaterally and moist oral mucous membranes Mouth: oral and palatal mucosa normal Eyes PERRL and EOMs intact bilaterally Neck no lymphadenopathy and supple Resp Resp Narrative: diminished breath sounds bibasally, on BIPAP, bilateral wheezing and crackles Cardio regular rate, regular rhythm, S1 normal heart sound, S2 normal heart sound and no murmurs GI normal to inspection, nondistended, normoactive bowel sounds, soft to palpation and non-tender Extremity normal to inspection, full ROM and no clubbing, cyanosis or edema Neuro moves all extremities and no focal motor deficits Neuro Narrative: Patient very somnolent and lethargic. Psych Psych Narrative: lethargic Results Lab / Micro Data Result Diagrams: 08/16/22 12:50 08/16/22 15:33 Labs: Laboratory Results - last 24 hr 08/16/22 12:50: WBC 13.8 H, RBC 3.24 L, Hgb 8.8 L, Hct 29.9 L, MCV 92.3, MCH 27.2, MCHC 29.4 L, RDW Std Deviation 50.8 H, RDW Coeff of Mat 15.0 H, Plt Count 208, MPV 9.8, Immature Gran % (Auto) 0.400, Neut % (Auto) 80.5 H, Lymph % (Auto) 10.6 L, [place] % (Auto) 8.3, Eos % (Auto) 0.1, Baso % (Auto) 0.1, Absolute Neuts (auto) 11.1 H, Absolute Lymphs (auto) 1.46, Nucleated RBC % 0 08/16/22 12:50: Sodium 137, Potassium 6.9 H*, Chloride 112 H, Carbon Dioxide 22.0, Anion Gap 3 L, BUN 53 H, Creatinine 3.83 H, Estim Creat Clear Calc 12.05, Est GFR (MDRD) Af Amer 15 L, Est GFR (MDRD) Non-Af 13 L, BUN/Creatinine Ratio 13.8, Glucose 167 H, Calcium 8.7, Troponin I High Sens 19 08/16/22 13:35: Lactic Acid 0.6 Micro: Microbiology 08/16/22 13:25 Nasal Secretion SARS-CoV-2 & FLU Antigen (Rapid) - Final ABG Data ABG results: ABG 08/16/22 14:05 Specimen Type ART Sample Site L Brach pH 7.17 L* Bicarbonate Actual 19.7 L Total CO2 21 Base Excess -9 L O2 Saturation 99 O2 % 45 ABG pCO2 54.3 H ABG pO2 159 H Chapo Test Positive O2 Delivery Device BiPAP Crit Call To/Read Back Yes Clinical Comments 14 Radiology Impression Chest X-Ray 08/16/22 14:36 IMPRESSION: Right upper lobe pneumonia, new since 01/27/2022. Electronically Signed: Josiah Alejandro MD at 15:04 EST , Assessment & Plan Assessment/Plan (1) Right upper lobe pneumonia: (2) Acute respiratory failure with hypercapnia: PLAN: Plan #Acute on chronic hypoxic and hypercapnic respiratory failure due to right upper lobe pneumonia, likely aspiration pneumonia * Persisted, she was called that patient had been quite lethargic. It is unknown how long she had been lethargic for and is unknown if she had had any vomiting or otherwise. * Patient is supposed to wear a CPAP at home but has not been wearing it. * ABGs done on arrival showed pH of 7.17. Whilst on BiPAP ABG showed PCO2 of 54 so is likely PCO2 was much higher prior to that. ABG showed showed PO2 of 159 was on BiPAP. * Admit to ICU. * Chest x-ray showed right upper lobe pneumonia. Will treat as for aspiration pneumonia. * Started on IV Levaquin and ceftriaxone in the ED. Will place on IV Zosyn * Blood and sputum cultures ordered. Urine for strep and Legionella also ordered. * Consult critical care. * Breathing treatments with bronchodilators. Titrate oxygen to maintain saturation above 90%. * #Acute metabolic encephalopathy due to hypercapnia and pneumonia * Management as above * #Hyperkalemia: * Potassium was 6.9, no hemolysis seen * Was given Kayexalate in the ED. Will repeat BMP to follow-up on potassium. * EKG showed no acute ST changes indicate above hyperkalemia * Will give potassium depleting cocktail as well. * Admit to ICU. * Consult nephrology * potassium does not trend downward #Respiratory acidosis * Due to hypercapnia. pH was 7.17 as above and PCO2 was 54.3, after patient had been placed on BiPAP * Will repeat ABG to trend pH and PCO2 * #MARIANA on CKD stage III * Creatinine is 3.83 with a baseline creatinine of around 1.6. Likely due to acute illness and likely prerenal due to decreased intake from her lethargy * Hydrate gently with IV fluids and trend creatinine. If creatinine does not improve, will do further work-up with urine electrolytes and renal ultrasound. * #Hyperlipidemia: Hold statins due to patient being n.p.o. #Acute exacerbation of COPD * Likely contributing to the hypercapnia. Will place on IV Solu-Medrol 40 mg every 8. * Breathing treatments bronchodilators. Currently on BiPAP. * #Nicotine dependence: Patient continues to smoke. Will consult to quit smoking when she is more arousable. #Type 2 diabetes mellitus: Hold Lantus and trulicity on account of patient being NPO. Insulin sliding scale. Accu-Cheks every 6 hourly. #Hypertension: On lisinopril. Hold oral medications due to patient being n.p.o. #Restless leg syndrome: Hold ropinirole as patient is NPO. DVT prophylaxis: Lovenox CODE STATUS: Full code * Patient's mother and sister counseled extensively about different types of CODE STATUS including full code, DNR CCA and DNR CCA. * Patient too lethargic to make any decisions for herself * Her family opted to make her full code. * Total face to face time: 17 mins. * Total critical care time spent 45 minutes. Charges/Coding Visit Charges Inpatient E&M: 91298 Init Hosp L3 Procedures Hospitalists Procedures: 34556 Critial Care 1st Hr (advanced care discussion: [id number])
[2022-08-16 15:49] LABS: Potassium 6.9 mmol/L (3.5-5.1)
[2022-08-16] MEDS: levoFLOXacin IV 750 MG/150 ML BAG 100 MG IV (16:06)
--- NOTE | 2022-08-16 16:13 | ED.RN ---
Report given to Dionicio TOLEDO.
[2022-08-16 16:37] LABS: BNP,B-Type NATRIURETIC PEPTIDE 107.9 pg/mL (0-100)
[2022-08-16 17:55] LABS: Allen Test Positive; Base Excess -11 mmol/L (-2 to +2); Bicarbonate 18.8 mmol/L (22-26); Blood Gas Specimen Type ART; Comment 14/8; FI02 35; O2 Delivery Device BiPAP; PO2 76 mmHG (75-100); SITE L Radial; SO2 89 % (95-99); Total Carbon Dioxide 21 mmol/L; pCO2 61.3 mmHg (35-45)
[2022-08-16] MEDS: 0.9% Normal Saline 1,000 ML 125 ML IV (17:58)
[2022-08-16] MEDS: Insulin Lispro 100 UNIT/ML INSULN.PEN SC (18:03)
[2022-08-16 18:25] LABS: Anion Gap 5 (5-15); BUN 52 mg/dL (7-18); BUN/Creat Ratio 14.3 RATIO (10-20); Calcium,Total 8.8 mg/dL (8.5-10.1); Chloride 113 mmol/L (98-107); Creatinine, Serum 3.64 mg/dL (0.55-1.02); EST Glomerular Filtration Rate 13 mL/min (>60); Est Glom Filt Rate - Afr Amer 16 mL/min (>60); Estimated Creatinine Clearance 12.67 ml/min; Glucose 228 mg/dL (74-106); Potassium 6.8 mmol/L (3.5-5.1); Sodium Level 138 mmol/L (136-145)
[2022-08-16 18:30] LABS: Bedside Glucose 230 mg/dL (74-106)
[2022-08-16] MEDS: Sodium Bicarbonate 8.4% 50 ML Syringe 50 MEQ IV (19:03)
[2022-08-16 19:36] LABS: Bacteria 0 SEEN /hpf (None Seen); Mucous, Urine 0 SEEN /hpf (<or=2+); Red Blood Cells-Urine 0 SEEN /hpf (0-5); Squamous Epithelial Cells - UA 0 SEEN /hpf (5-10)
[2022-08-16 19:41] LABS: Color, Urine Yellow (Yellow); Glucose, Dipstick Normal (Normal); Ketone-Dipstick 5 mg/dl (Negative); Leukocyte Esterase-Dipstick 500 /ul (Negative); Nitrite-Dipstick Negative (Negative); Occult Blood-Urine 25 /ul (Negative); Protein-Dipstick 100 mg/dl (Negative); Specific Gravity, Urine 1.015 (1.002-1.030); Urine Bilirubin Dipstick Negative (Negative); Urine Clarity Turbid (Clear); Urine Urobilinogen 1 mg/dl (Normal); Urine pH 6.5 (5.0 - 8.0)
[2022-08-16 19:56] LABS: Lactic Acid 0.6 mmol/L (0.4-1.9)
[2022-08-16 20:15] LABS: White Blood Cells >100 SEEN /hpf (0-5)
[2022-08-16] MEDS: 0.9% Saline Lock 10 ML Syringe IV (20:27)
[2022-08-16 20:56] LABS: Allen Test Positive; Base Excess -8 mmol/L (-2 to +2); Bicarbonate 20.4 mmol/L (22-26); Blood Gas Specimen Type ART; FI02 35; O2 Delivery Device BiPAP; PEEP 10; PO2 76 mmHG (75-100); RR 16; SITE L Radial; SO2 90 % (95-99); Total Carbon Dioxide 22 mmol/L; Vt 450; pCO2 56.8 mmHg (35-45); pH 7.16 (7.35-7.45)
[2022-08-17] VITALS (35 sets, daily range): BP systolic 108–153; BP diastolic 48–91; PULSE 77–119; RESP 12–25; TEMP 35.4–38; O2SAT 89–98
[2022-08-17 00:15] LABS: Anion Gap 4 (5-15); BUN 57 mg/dL (7-18); BUN/Creat Ratio 13.9 RATIO (10-20); Calcium,Total 8.9 mg/dL (8.5-10.1); Chloride 110 mmol/L (98-107); EST Glomerular Filtration Rate 12 mL/min (>60); Est Glom Filt Rate - Afr Amer 14 mL/min (>60); Estimated Creatinine Clearance 11.25 ml/min; Glucose 285 mg/dL (74-106); Potassium 6.6 mmol/L (3.5-5.1); Sodium Level 138 mmol/L (136-145)
[2022-08-17] MEDS: Insulin Lispro 100 UNIT/ML INSULN.PEN SC ×5 (00:32→22:23)
[2022-08-17] MEDS: Ipratropium/Albuterol Sulfate 3 ML AMPUL.NEB INHALATION ×4 (01:56→19:18)
[2022-08-17 05:20] LABS: Absolute Lymphocyte Count 0.78 X10^3/uL (0.83-4.51); Absolute Neutrophil Count 10.6 X10^3/uL (2.0-7.7); Basophil# 0.01 X10^3/uL; Basophil% 0.1 % (0-1); Hematocrit 28.3 % (37-47); Hemoglobin 8.4 g/dL (12.0-15.0); Lymphocyte # 0.78 X10^3/ul (0.83-4.51); Lymphocyte % 6.6 % (19-41); Mean Corp Hgb Conc 29.7 g/dL (32-36); Mean Platelet Vol. 9.6 fl (6.2-12.0); Monocyte# 0.22 X10^3/uL; Monocyte% 1.9 % (0-10); NRBC Flagged by Analyzer 0 % (0-5); Neutrophil # 10.64 X10^3/uL (2.7-7.7); Neutrophil % 90.5 % (47-70); Platelet Count 204 K/mm3 (150-450); RBC Distribution Width CV 14.8 % (11.6-14.6); RBC Distribution Width SD 49.6 fl (35.1-43.9); Red Blood Count 3.11 M/mm3 (4.2-5.4); White Blood Count 11.8 K/mm3 (4.4-11.0)
[2022-08-17] MEDS: 0.9% Saline Lock 10 ML Syringe IV ×2 (05:23→21:52)
[2022-08-17 05:45] LABS: Anion Gap 7 (5-15); BUN 58 mg/dL (7-18); BUN/Creat Ratio 13.8 RATIO (10-20); Calcium,Total 8.6 mg/dL (8.5-10.1); Chloride 107 mmol/L (98-107); EST Glomerular Filtration Rate 11 mL/min (>60); Est Glom Filt Rate - Afr Amer 14 mL/min (>60); Estimated Creatinine Clearance 10.98 ml/min; Glucose 266 mg/dL (74-106); Potassium 6.1 mmol/L (3.5-5.1); Sodium Level 138 mmol/L (136-145)
[2022-08-17 06:06] LABS: Bedside Glucose 264 mg/dL (74-106)
--- NOTE | 2022-08-17 06:13 | NURSING ---
0615- Dr. Baez is at bedside assessing patient and educating about dialysis and temporary dialysis catheter placement. Consent for placement has been obtained.
--- NOTE | 2022-08-17 06:31 | RAD_ITS ---
EXAM: XR CHEST, 1 VIEW CLINICAL INDICATION: dialysis catheter placement TECHNIQUE: Frontal view of the chest. This report was created using [employer] report generation technology. COMPARISON: Previous chest radiographs of 08/16/2022 and 01/27/2022. FINDINGS: LUNGS AND PLEURAL SPACES: The patchy airspace disease/pneumonia within the right mid to upper lung is again noted, minimally improved, with mild patchy airspace disease persisting in the right upper lung and overlying the right hilum. Left lung is clear. No pneumothorax or pleural effusion. HEART: Heart size is within normal limits with normal pulmonary vasculature for technique. MEDIASTINUM: Thoracic aorta is minimally elongated. Trachea is midline. BONES/JOINTS: Thoracic degenerative spurring. No acute osseous abnormality. SOFT TISSUES: Unremarkable. TUBES, LINES AND DEVICES: Right jugular venous catheter has been inserted and its tip is projected over the mid SVC. RAD/Chest 1 View (Portable) IMPRESSION: Satisfactory central venous catheter positioning. No pneumothorax. Electronically Signed: Cruzito Jose MD at 7:25 EST ,
[2022-08-17 07:40] LABS: Base Excess -4 mmol/L (-2 to +2); Bicarbonate 24.4 mmol/L (22-26); Blood Gas Specimen Type ART; FI02 35; Mode avaps; O2 Delivery Device BiPAP; PEEP 12; PO2 71 mmHG (75-100); RR 16; SITE L Radial; SO2 89 % (95-99); Total Carbon Dioxide 26 mmol/L; Vt 450; pCO2 61.5 mmHg (35-45); pH 7.21 (7.35-7.45)
--- NOTE | 2022-08-17 08:08 | CPS ---
results of testing notified to dr. finley. no new orders given.
--- NOTE | 2022-08-17 08:19 | CON.PCM.CC_ITS ---
Assessment & Plan Assessment/Plan (1) Acute respiratory failure with hypercapnia: (2) Right upper lobe pneumonia: (3) Acute kidney injury superimposed on chronic kidney disease: (4) Severe sepsis: PLAN: Plan RECOMMENDATIONS: 1. ABG following hemodialysis. Possible intubation 2. Continue empiric antibiotics pending cultures 3. Titrate oxygen saturations between 90 and 94% 4. Emergent dialysis for hyperkalemia 5. Continue steroids, bronchodilators and BiPAP 6. Monitor blood sugars closely IMPRESSIONS: 1. Acute combined respiratory failure secondary to right lower lobe pneumonia Unclear if patient has an element of aspiration. Patient has been noncompliant with NARCISO therapy, increasing risk of complications. Patient with significant hypercarbic respiratory failure on presentation. Patient has had marginal improvement following BiPAP therapy. Patient does have a significant metabolic acidosis secondary to acute kidney injury. We will continue with BiPAP for now with an ABG after dialysis. If patient's respiratory status remains marginal, may need to proceed with intubation. Patient is aware of the plan. Unclear baseline respiratory status does complicate overall condition, but patient does appear to have an element of CO2 retention at baseline. 2. Sepsis Unclear etiology of ongoing sepsis. Patient does have a right lower lobe infiltrate, but also has lower extremity wounds with surrounding erythema. Patient is on empiric antibiotics at this time. Pancultures are currently pending. Evidence of endorgan damage include kidney function and respiratory failure. Cannot exclude the need for Levophed as patient is currently undergoing dialysis. Patient has gram-negative bacteremia, blood pressure may fall precipitously in the next 24 hours. 3. Acute on CKD stage III/hyperkalemia Patient appears to have a baseline creatinine of approximately 1.6 and presented with a creatinine of 3.83. Unfortunately, patient has had hyperkalemia with marginal urine output. Patient does have a temporary dialysis line. We will proceed with dialysis today. This is likely complicating problem #1. 4. Hyperlipidemia/reported COPD/uncontrolled diabetes mellitus type 2/hypertension/NARCISO with noncompliance/obesity Complicates care, management, recovery and prognosis. We will need to watch blood sugars closely given steroid therapy. Cannot exclude the need for basal insulin, but patient's p.o. status is marginal given BiPAP requirements. We will continue with sliding scale insulin for now. Hold on p.o. antihypertensives given BiPAP requirements. Can initiate labetalol and hydralazine if necessary. TIME: 34 minutes critical care time spent addressing patient's respiratory failure, sepsis, acute kidney injury, diabetes mellitus, review of all data and collaboration with care team HPI Consult Data Date of Consult: 08/17/22 HPI Narrative Reason for Consultation: Respiratory failure HPI Narrative: WENDI ADDISON is a 62 F, with past medical history listed below, who presents to [facility] on 08/16/2022 secondary to increased shortness of breath over the last 24 hours. Patient reportedly has a history of COPD and NARCISO with marginal compliance. Patient reportedly had EMS called by her sister secondary to mental status change and drowsiness. Patient reportedly has not been compliant with CPAP therapy secondary to a lack of supplies. Patient does not wear supplemental oxygen at baseline, but is a prolific smoker. Patient also has history of diabetic leg ulcers that were attempted to be treated at home. Patient reportedly had wheezing initiated yesterday. In the ER, patient was afebrile and slightly tachypneic at 19 breaths/min. Patient's blood pressures were marginal at 90/47 and she was noted to be 87% on room air. Patient was placed on 2 L nasal cannula, but eventually needed BiPAP therapy to maintain saturations. Laboratory work-up showed a white blood cell count of 13.8, hemoglobin of 8.8 and a platelet count of 208. Initial chemistry showed a potassium of 6.9, BUN of 53 and creatinine of 3.83. Glucose was slightly elevated at 167 and BNP was 108. Lactate was within normal limits, but repeat potassium showed continued elevation at 6.9. An ABG on initial BiPAP showed a pH of 7.17, CO2 of 54, PO2 of 159 and a saturation of 99% on BiPAP 45% FiO2. Chest x-ray showed the presence of a right lower lobe pneumonia. Patient was given initial therapy for hyperkalemia and nephrology was called. Patient was initiated on antibiotics. Patient was transferred to the intensive care unit for further evaluation. Since being in the intensive care unit, patient has had marginal urine output. Patient has been dependent on the BiPAP and saturations have been doing okay. Patient's mentation has improved slightly, but given continued elevation of creatinine, nephrology placed the dialysis line. There is plans for urgent h emodialysis today. Patient is not able to provide much additional history given respiratory distress despite BiPAP therapy. Patient is able to say that she feels subjectively slightly improved following BiPAP therapy. Patient has not been seen in the pulmonary clinic previously per review of electronic medical record, but does carry a diagnosis of COPD. Patient is willing to be intubated if necessary. 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 Patient does carry diagnosis of diabetes and believes she has had kidney problems in the past. FOR[facility]LY [facility] Medical History Anxiety and depression Arthritis Breast lump Cancer Chronic pain Colon cancer COPD (chronic obstructive pulmonary disease) Depression High cholesterol HTN (hypertension) Neuropathy Recurrent UTI Rheumatic fever Rheumatoid arthritis Seasonal allergies Sleep apnea Smoker Type 2 diabetes mellitus Uterine cancer Vision problem Vitamin deficiency Home Medications ergocalciferol (vitamin D2) 1,250 mcg (50,000 unit) capsule 50,000 unit PO MARTELL SUPPLEMENT 02/28/14 [History Last Taken 01/25/22] gabapentin 600 mg tablet 600 mg PO BID NEUROPATHY 02/28/14 [History Last Taken 02/26/21] lisinopril 10 mg tablet 10 mg PO DAILY HIGH BLOOD PRESSURE 02/28/14 [History Last Taken 01/27/22 08:00] spironolactone 50 mg tablet 50 mg PO DAILY WATER RETENTION 02/28/14 [History Las t Taken 01/27/22 08:00] duloxetine 60 mg capsule,delayed release 60 mg PO DAILY NEUROPATHY 02/17/18 [History Last Taken 01/27/22 08:00] atorvastatin 80 mg tablet 40 mg PO QDAY cholesterol 03/01/18 [History Last Taken 01/27/22 18:00] insulin glargine 100 unit/mL subcutaneous solution (Lantus U-100 Insulin) 19 unit subcut QHS dm 03/01/18 [History Last Taken 01/26/22] budesonide-formoterol HFA 160 mcg-4.5 mcg/actuation aerosol inhaler (Symbicort) 2 puff inhalation Q12H COPD 01/27/22 [History Last Taken 01/26/22 18:00] dulaglutide 0.75 mg/0.5 mL subcutaneous pen injector (Trulicity) 0.75 mg subcut QWEEK Diabetes 01/27/22 [History Last Taken 01/27/22] albuterol sulfate 2.5 mg/0.5 mL solution for nebulization 2.5 mg (0.5 mL) inhalation Q2H PRN shortness of breath or wheezing #30 ea 01/31/22 [Rx Last Taken Unknown] baclofen 10 mg tablet 10 mg PO TID muscle spasm 08/16/22 [History Last Taken Unk nown] bupropion HCl 150 mg tablet,12 hr sustained-release 150 mg PO BID depression 08/16/22 [History Last Taken Unknown] furosemide 20 mg tablet 10 mg PO DAILY water pill 08/16/22 [History Last Taken Unknown] gabapentin 300 mg capsule 300 mg DAILY neuropathy 08/16/22 [History Last Taken Unknown] leflunomide 20 mg tablet 20 mg PO DAILY RA 08/16/22 [History Last Taken Unknown] metoprolol succinate 25 mg tablet,extended release 24 hr 25 mg PO DAILY bp 08/16/22 [History Last Taken Unknown] potassium chloride 10 mEq tablet,extended release 10 meq PO DAILY supplement 08/16/22 [History Last Taken Unknown] pramipexole 0.5 mg tablet 0.5 mg PO BID Check with primary doctor 08/16/22 [History Last Taken Unknown] pregabalin 50 mg capsule 50 mg PO BID pain 08/16/22 [History Last Taken Unknown] tamsulosin 0.4 mg capsule 0.4 mg PO DAILY Check with primary doctor 08/16/22 [History Last Taken Unknown] Allergy/AdvReac Type Severity Reaction Status Date / Time clindamycin Allergy Swelling Verified 08/16/22 12:43 metformin AdvReac Nausea Verified 08/16/22 12:43 Family History Father Arthritis Cancer Diabetes Heart disease Hypertension Mother Hypertension Sister Arthritis Lupus Daughter Kidney stones Surgical History Bowel obstruction History of hysterectomy for cancer tumer removed from colon Social History household members: family Smoking Status: Current every day smoker tobacco type: cigarettes alcohol intake: never substance use type: does not use ROS ROS Narrative Unable to obtain review of systems secondary to marginal respiratory status. Physical Exam Const Constitutional Narrative: Lethargic, somnolent, but arousable for short periods of time on BiPAP Orientation / Consciousness: lethargic HEENT normocephalic, head/scalp atraumatic, hearing grossly normal bilaterally and moist oral mucous membranes HEENT Narrative: Mallampati 4 Mouth: oral and palatal mucosa normal Eyes PERRL and EOMs intact bilaterally Neck no lymphadenopathy and supple Resp Resp Narrative: Good BiPAP synchrony Auscultation: rales, wheezes and diminished lung sounds; Negative for rhonchi Cardio regular rate, regular rhythm, S1 normal heart sound, S2 normal heart sound, no murmurs, no rub and no gallops GI normal to inspection, nondistended, normoactive bowel sounds, soft to palpation and non-tender Extremity normal to inspection and full ROM General Extremity: edema Skin Skin Narrative: Bilateral lower extremity superficial ulcers with surrounding erythema Neuro moves all extremities and no focal motor deficits Neuro Narrative: Patient somnolent and lethargic. Psych Psych Narrative: lethargic Lab / Micro Data Attestation: I reviewed the patient's lab results. Result Diagrams: 08/17/22 05:10 08/17/22 05:10 Labs: Laboratory Results - last 24 hr 08/16/22 12:50: WBC 13.8 H, RBC 3.24 L, Hgb 8.8 L, Hct 29.9 L, MCV 92.3, MCH 27.2, MCHC 29.4 L, RDW Std Deviation 50.8 H, RDW Coeff of Mat 15.0 H, Plt Count 208, MPV 9.8, Immature Gran % (Auto) 0.400, Neut % (Auto) 80.5 H, Lymph % (Auto) 10.6 L, [place] % (Auto) 8.3, Eos % (Auto) 0.1, Baso % (Auto) 0.1, Absolute Neuts (auto) 11.1 H, Absolute Lymphs (auto) 1.46, Nucleated RBC % 0 08/16/22 12:50: Sodium 137, Potassium 6.9 H*, Chloride 112 H, Carbon Dioxide 22.0, Anion Gap 3 L, BUN 53 H, Creatinine 3.83 H, Estim Creat Clear Calc 12.05, Est GFR (MDRD) Af Amer 15 L, Est GFR (MDRD) Non-Af 13 L, BUN/Creatinine Ratio 13.8, Glucose 167 H, Calcium 8.7, Troponin I High Sens 19 08/16/22 12:50: B-Natriuretic Peptide 107.9 H 08/16/22 13:35: Lactic Acid 0.6 08/16/22 15:33: Potassium 6.9 H* 08/16/22 17:55: Sodium 138, Potassium 6.8 H*, Chloride 113 H, Carbon Dioxide 20.0 L, Anion Gap 5, BUN 52 H, Creatinine 3.64 H, Estim Creat Clear Calc 12.67, Est GFR (MDRD) Af Amer 16 L, Est GFR (MDRD) Non-Af 13 L, BUN/Creatinine Ratio 14.3, Glucose 228 H, Calcium 8.8 08/16/22 18:01: POC Glucose 230 H 08/16/22 18:58: Lactic Acid 0.6 08/16/22 19:00: Urine Color Yellow, Urine Clarity Turbid, Urine pH 6.5, Ur Sp ecific [place] 1.015, Urine Protein 100 H, Urine Glucose (UA) Normal, Urine Ketones 5 H, Urine Occult Blood 25 H, Urine Nitrite Negative, Urine Bilirubin Negative, Urine Urobilinogen 1 H, Ur Leukocyte Esterase 500 H, Urine RBC 0 SEEN, Urine WBC >100 SEEN, Ur Squamous Epith Cells 0 SEEN, Urine Bacteria 0 SEEN, Urine Mucus 0 SEEN 08/16/22 20:35: Acetone Level NEGATIVE 08/16/22 23:35: Sodium 138, Potassium 6.6 H*, Chloride 110 H, Carbon Dioxide 24.0, Anion Gap 4 L, BUN 57 H, Creatinine 4.10 H, Estim Creat Clear Calc 11.25, Est GFR (MDRD) Af Amer 14 L, Est GFR (MDRD) Non-Af 12 L, BUN/Creatinine Ratio 13.9, Glucose 285 H, Calcium 8.9 08/17/22 05:10: WBC 11.8 H, RBC 3.11 L, Hgb 8.4 L, Hct 28.3 L, MCV 91.0, MCH 27.0, MCHC 29.7 L, RDW Std Deviation 49.6 H, RDW Coeff of Mat 14.8 H, Plt Count 204, MPV 9.6, Immature Gran % (Auto) 0.900, Neut % (Auto) 90.5 H, Lymph % (Auto) 6.6 L, [place] % (Auto) 1.9, Eos % (Auto) 0.0, Baso % (Auto) 0.1, Absolute Neuts (auto) 10.6 H, Absolute Lymphs (auto) 0.78 L, Nucleated RBC % 0 08/17/22 05:10: Sodium 138, Potassium 6.1 H*, Chloride 107, Carbon Dioxide 24.0, Anion Gap 7, BUN 58 H, Creatinine 4.20 H, Estim Creat Clear Calc 10.98, Est GFR (MDRD) Af Amer 14 L, Est GFR (MDRD) Non-Af 11 L, BUN/Creatinine Ratio 13.8, Glucose 266 H, Calcium 8.6 08/17/22 05:14: POC Glucose 264 H Micro: Microbiology 08/16/22 19:00 Urine Catheter - Gaffney Legionella Antigen - Final 08/16/22 19:00 Urine Catheter - Gaffney Streptococcus pneumoniae Antigen (M - Final Streptococcus pneumonia Ag 08/16/22 13:25 Nasal Secretion SARS-CoV-2 & FLU Antigen (Rapid) - Final ABG Data ABG results: ABG 08/16/22 08/16/22 08/16/22 14:05 17:49 20:47 Specimen Type ART ART ART Sample Site L Brach L Radial L Radial pH 7.17 L* 7.10 L* 7.16 L* Bicarbonate Actual 19.7 L 18.8 L 20.4 L Total CO2 21 21 22 Base Excess -9 L -11 L -8 L O2 Saturation 99 89 L 90 L O2 % 45 35 35 ABG pCO2 54.3 H 61.3 H 56.8 H ABG pO2 159 H 76 76 Chapo Test Positive Positive Positive Respiration Rate 16 O2 Delivery Device BiPAP BiPAP BiPAP Vent Mode Tidal Volume 450 POC PEEP 10 Crit Call To/Read Back Yes Yes Yes Blood Gas Notified Whom TASHA Mcdaniel Clinical Comments 14 12/0408/17/22 07:35 Specimen Type ART Sample Site L Radial pH 7.21 L Bicarbonate Actual 24.4 Total CO2 26 Base Excess -4 L O2 Saturation 89 L O2 % 35 ABG pCO2 61.5 H ABG pO2 71 L Chapo Test N/A Respiration Rate 16 O2 Delivery Device BiPAP Vent Mode avaps Tidal Volume 450 POC PEEP 12 Crit Call To/Read Back Yes Blood Gas Notified Whom dr finley Clinical Comments Attestation: I personally reviewed and interpreted this ABG as follows: (Acute on chronic combined acidosis with marginal improvement and increased AA gradient) Radiology Impression Chest X-Ray 08/16/22 14:36 IMPRESSION: Right upper lobe pneumonia, new since 01/27/2022. Electronically Signed: Josiah Alejandro MD at 15:04 EST , Chest X-Ray 08/17/22 06:31 IMPRESSION: Satisfactory central venous catheter positioning. No pneumothorax. Electronically Signed: Cruzito Jose MD at 7:25 EST , Charges/Coding Procedures Hospitalists Procedures: [id number] Critial Care 1st Hr
--- NOTE | 2022-08-17 08:25 | NURSING ---
swatcher at bedside preparing for treatment.
--- NOTE | 2022-08-17 08:31 | PN.HOSP_ITS ---
Subjective Subjective Follow-up on acute on chronic combined respiratory failure/pneumonia/acute metabolic encephalopathy/hyperkalemia/MARIANA: Patient was seen and examined. Right IJ temporary dialysis catheter was placed this morning. She was seen having dialysis. No other events overnight. Objective Data Objective Data Vital Signs: Vital Signs Temp Pulse Resp BP Pulse Ox O2 Del Method O2 Flow Rate 96.8 F L 88 18 128/76 H 94 Bi-pap 2 08/17/22 04:00 08/17/22 08:00 08/17/22 07:19 08/17/22 07:00 08/17/22 07:19 08/17/22 07:00 08/16/22 12:59 FiO2 35 08/17/22 07:19 Oxygen Flow Rate (L/min) 2 Oxygen Delivery Method Bi-pap Weight: 92.3 kg Body Mass Index (BMI) 34.4 Intake & Output: Intake and Output for Last 24 Hours 08/15/22 08/16/22 08/17/22 23:59 23:59 23:59 Intake Total 1538.33 / 1538.33 1168.75 / 1168.75 Output Total 225 / 225 150 / 150 Balance 1313.33 / 1313.33 1018.75 / 1018.75 Lab / Micro Data Result Diagrams: 08/17/22 05:10 08/17/22 05:10 Labs: Laboratory Results - last 24 hr 08/16/22 12:50: WBC 13.8 H, RBC 3.24 L, Hgb 8.8 L, Hct 29.9 L, MCV 92.3, MCH 27.2, MCHC 29.4 L, RDW Std Deviation 50.8 H, RDW Coeff of Mat 15.0 H, Plt Count 208, MPV 9.8, Immature Gran % (Auto) 0.400, Neut % (Auto) 80.5 H, Lymph % (Auto) 10.6 L, [place] % (Auto) 8.3, Eos % (Auto) 0.1, Baso % (Auto) 0.1, Absolute Neuts (auto) 11.1 H, Absolute Lymphs (auto) 1.46, Nucleated RBC % 0 08/16/22 12:50: Sodium 137, Potassium 6.9 H*, Chloride 112 H, Carbon Dioxide 22.0, Anion Gap 3 L, BUN 53 H, Creatinine 3.83 H, Estim Creat Clear Calc 12.05, Est GFR (MDRD) Af Amer 15 L, Est GFR (MDRD) Non-Af 13 L, BUN/Creatinine Ratio 13.8, Glucose 167 H, Calcium 8.7, Troponin I High Sens 19 08/16/22 12:50: B-Natriuretic Peptide 107.9 H 08/16/22 13:35: Lactic Acid 0.6 08/16/22 15:33: Potassium 6.9 H* 08/16/22 17:55: Sodium 138, Potassium 6.8 H*, Chloride 113 H, Carbon Dioxide 20.0 L, Anion Gap 5, BUN 52 H, Creatinine 3.64 H, Estim Creat Clear Calc 12.67, Est GFR (MDRD) Af Amer 16 L, Est GFR (MDRD) Non-Af 13 L, BUN/Creatinine Ratio 14.3, Glucose 228 H, Calcium 8.8 08/16/22 18:01: POC Glucose 230 H 08/16/22 18:58: Lactic Acid 0.6 08/16/22 19:00: Urine Color Yellow, Urine Clarity Turbid, Urine pH 6.5, Ur Specific [place] 1.015, Urine Protein 100 H, Urine Glucose (UA) Normal, Urine Ketones 5 H, Urine Occult Blood 25 H, Urine Nitrite Negative, Urine Bilirubin Negative, Urine Urobilinogen 1 H, Ur Leukocyte Esterase 500 H, Urine RBC 0 SEEN, Urine WBC >100 SEEN, Ur Squamous Epith Cells 0 SEEN, Urine Bacteria 0 SEEN, Urine Mucus 0 SEEN 08/16/22 20:35: Acetone Level NEGATIVE 08/16/22 23:35: Sodium 138, Potassium 6.6 H*, Chloride 110 H, Carbon Dioxide 24.0, Anion Gap 4 L, BUN 57 H, Creatinine 4.10 H, Estim Creat Clear Calc 11.25, Est GFR (MDRD) Af Amer 14 L, Est GFR (MDRD) Non-Af 12 L, BUN/Creatinine Ratio 13.9, Glucose 285 H, Calcium 8.9 08/17/22 05:10: WBC 11.8 H, RBC 3.11 L, Hgb 8.4 L, Hct 28.3 L, MCV 91.0, MCH 27.0, MCHC 29.7 L, RDW Std Deviation 49.6 H, RDW Coeff of Mat 14.8 H, Plt Count 204, MPV 9.6, Immature Gran % (Auto) 0.900, Neut % (Auto) 90.5 H, Lymph % (Auto) 6.6 L, [place] % (Auto) 1.9, Eos % (Auto) 0.0, Baso % (Auto) 0.1, Absolute Neuts (auto) 10.6 H, Absolute Lymphs (auto) 0.78 L, Nucleated RBC % 0 08/17/22 05:10: Sodium 138, Potassium 6.1 H*, Chloride 107, Carbon Dioxide 24.0, Anion Gap 7, BUN 58 H, Creatinine 4.20 H, Estim Creat Clear Calc 10.98, Est GFR (MDRD) Af Amer 14 L, Est GFR (MDRD) Non-Af 11 L, BUN/Creatinine Ratio 13.8, Glucose 266 H, Calcium 8.6 08/17/22 05:14: POC Glucose 264 H Micro: Microbiology 08/16/22 19:00 Urine Catheter - Gaffney Legionella Antigen - Final 08/16/22 19:00 Urine Catheter - Gaffney Streptococcus pneumoniae Antigen (M - Final Streptococcus pneumonia Ag 08/16/22 13:25 Nasal Secretion SARS-CoV-2 & FLU Antigen (Rapid) - Final ABG Data ABG results: ABG 08/16/22 08/16/22 08/16/22 14:05 17:49 20:47 Specimen Type ART ART ART Sample Site L Brach L Radial L Radial pH 7.17 L* 7.10 L* 7.16 L* Bicarbonate Actual 19.7 L 18.8 L 20.4 L Total CO2 21 21 22 Base Excess -9 L -11 L -8 L O2 Saturation 99 89 L 90 L O2 % 45 35 35 ABG pCO2 54.3 H 61.3 H 56.8 H ABG pO2 159 H 76 76 Chapo Test Positive Positive Positive Respiration Rate 16 O2 Delivery Device BiPAP BiPAP BiPAP Vent Mode Tidal Volume 450 POC PEEP 10 Crit Call To/Read Back Yes Yes Yes Blood Gas Notified Whom TASHA Mcdaniel Clinical Comments 14 12/0408/17/22 07:35 Specimen Type ART Sample Site L Radial pH 7.21 L Bicarbonate Actual 24.4 Total CO2 26 Base Excess -4 L O2 Saturation 89 L O2 % 35 ABG pCO2 61.5 H ABG pO2 71 L Chapo Test N/A Respiration Rate 16 O2 Delivery Device BiPAP Vent Mode avaps Tidal Volume 450 POC PEEP 12 Crit Call To/Read Back Yes Blood Gas Notified Whom dr finley Clinical Comments Radiography Diagnostic Testing: Radiology Impression Chest X-Ray 08/16/22 14:36 IMPRESSION: Right upper lobe pneumonia, new since 01/27/2022. Electronically Signed: Josiah Alejandro MD at 15:04 EST , Chest X-Ray 08/17/22 06:31 IMPRESSION: Satisfactory central venous catheter positioning. No pneumothorax. Electronically Signed: Cruzito Jose MD at 7:25 EST , Physical Exam Narrative Physical exam: General: Alert, Oriented x3, Cooperative, appears slightly lethargic HEENT: Atraumatic Oral: Moist Mucosa Neck: Supple Lungs: Diminished to auscultation Cardiovascular: HS I+II, regular, no murmurs Abdomen: Bowel Sounds Present, Soft, Non Tender Extremities: Bilateral leg edema, trace with multiple ulceration with henry rounding erythema on both lower extremities, right more than left Skin: See lower extremity Neurological: Grossly intact Psych/Mental Status: Appropriate Assessment & Plan Assessment/Plan (1) Acute kidney injury superimposed on chronic kidney disease: (2) Acute respiratory failure with hypercapnia: PLAN: Plan 1. MARIANA on CKD stage III; patient is anuric; started on dialysis, Nephrology consulted, admitting creatinine is 3.83, creatinine is monitored 4.20 Previous creatinine about a month ago was 1.85 Will trend labs in am 2. Hyperkalemia, secondary to #1, persistent despite Kayexalate and potassium depleting medications Started on dialysis, will trend labs 3. Acute combined respiratory failure secondary to right upper lobe pneumonia, probable aspiration pneumonia versus COPD exacerbation Patient has been managed overnight on BiPAP, Continue IV antibiotics and IV Solu-Medrol Critical care consulted; will follow-up on recommendations 4. Acute right upper lobe pneumonia, suspected aspiration pneumonia Continue IV Zosyn, speech therapy consulted 5. Acute metabolic encephalopathy secondary to #3 and 4, will continue to monitor 6. Type II DM, complicated by peripheral neuropathy blood sugars are elevated, Home insulin regimen, gabapentin and cymbalta on hold Continue with med-high dose insulin sliding scale with blood glucose checks 7. Hypertension/hyperlipidemia, home lisinopril, metoprolol, spironolactone on hold Continue to monitor 8. Rheumatoid arthritis, continue to hold leflunomide 9. DVT prophylaxis?on Lovenox subcu Charges/Coding Visit Charges Inpatient E&M: 62226 Subs Hosp L3
[2022-08-17 11:08] LABS: Hepatitis B Surface Antigen Non-Reactive (Nonreactive)
[2022-08-17] MEDS: Enoxaparin 30 MG/0.3 ML Syringe SC (11:36)
[2022-08-17] MEDS: Heparin 10,000 UNITS/10 ML Vial 2600 UNITS IV (11:37)
--- NOTE | 2022-08-17 13:16 | CASEMGMT ---
[place] CM Assessment: Face to Face with pt for initial transition planning/care coordination assessment. 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 TC to dtr, Amber Hernandez. Providers, pharmacy, and demographics verified/updated. Admitting Dx: Acute Hypoxic and Hypercapnic Respiratory. PCP: Eliezer Armando NP. Specialists: None. Pt's dtr stated there have been issues d/t pt's insurance. [facility]. Insurance: [employer]. Prescription Benefit: Yes. LW/HPOA: Pt's dtr denied pt has LW/HPOA. Per dtr, pt does have the paperwork. Dtr is aware that SW can assist if pt desires. LNOK: Pt lives with dtr and two grandsons. Living Arrangements: Pt lives in a one story home with one step in the front and the garage to enter. Per dtr, pt has limited mobility. Transportation: Pt does not drive. Pt's dtr provides transportation if needed. DME/HHC/SNF: Per dtr, pt has a walker, wheelchair, and nebulizer. Per dtr, pt has a Cpap but does not wear it. Pt received outpt PT in the past through [facility]. Dtr denied any HHC or SNF stays in the past. Pt's dtr states no concerns with going home at time of dc. Pt's dtr states no further concerns/needs. CM to follow. Advised pt's dtr to ask CM if any further question/concerns/needs arise, voices understanding. Pt Goal: Per dtr, pt would like to return home. Pt's dtr stated she will care for her mother. Pt's dtr is juggling a lot with her mother and two sons. Resource information provided via phone. Pt's dtr stated she is looking into Waiver services through [employer]. Pt's dtr is also working with [employer] at this time. Pt's dtr would like her mother to have a FLOOR NURSE at the home to assist with housework if possible. Pt's dtr's email: [email or web address]. Plan:?TBD.
[2022-08-17 13:30] LABS: Bedside Glucose 178 mg/dL (74-106)
--- NOTE | 2022-08-17 14:17 | WOUNDNOTE ---
wound photo: right lower leg
--- NOTE | 2022-08-17 14:18 | WOUNDNOTE ---
wound photo: right lower leg
--- NOTE | 2022-08-17 14:18 | WOUNDNOTE ---
wound photo: left lower leg
--- NOTE | 2022-08-17 15:07 | PCM.CONS.R ---
Assessment & Plan Assessment/Plan (1) Acute kidney injury superimposed on chronic kidney disease: PLAN: Baseline cr 1.5. as per daughter she was on lisinopril, KCL, Aldactone and lasix. K was noted to borderline high even before. not much urine output. history of UTIs as per daughter. will plan for HD in view of recurrent hyperkalemia and anuric renal failure. (2) Hyperkalemia: HPI Consult Data Date of Consult: 08/17/22 HPI Narrative Reason for Consultation: MARIANA HPI Narrative: WENDI ADDISON, is a 62 F who presents to hospital with dyspnea. currently being treated for pneumonia, MARIANA. renal consulted for MARIANA. history of CKD 3B with baseline cr around 1.5. called and spoke to daughter. she says her mom has been sick for several weeks, refused to go in to hospital. no urine output overnight. ROS negative except above. currently on Bipap [facility] Medical History Anxiety and depression Arthritis Breast lump Cancer Chronic pain Colon cancer COPD (chronic obstructive pulmonary disease) Depression High cholesterol HTN (hypertension) Neuropathy Recurrent UTI Rheumatic fever Rheumatoid arthritis Seasonal allergies Sleep apnea Smoker Type 2 diabetes mellitus Uterine cancer Vision problem Vitamin deficiency Home Medications ergocalciferol (vitamin D2) 1,250 mcg (50,000 unit) capsule 50,000 unit PO MARTELL SUPPLEMENT 02/28/14 [History Last Taken 01/25/22] gabapentin 600 mg tablet 600 mg PO BID NEUROPATHY 02/28/14 [History Last Taken 02/26/21] lisinopril 10 mg tablet 10 mg PO DAILY HIGH BLOOD PRESSURE 02/28/14 [History Last Taken 01/27/22 08:00] spironolactone 50 mg tablet 50 mg PO DAILY WATER RETENTION 02/28/14 [History Last Taken 01/27/22 08:00] duloxetine 60 mg capsule,delayed release 60 mg PO DAILY NEUROPATHY 02/17/18 [History Last Taken 01/27/22 08:00] atorvastatin 80 mg tablet 40 mg PO QDAY cholesterol 03/01/18 [History Last Taken 01/27/22 18:00] insulin glargine 100 unit/mL subcutaneous solution (Lantus U-100 Insulin) 19 unit subcut QHS dm 03/01/18 [History Last Taken 01/26/22] budesonide-formoterol HFA 160 mcg-4.5 mcg/actuation aerosol inhaler (Symbicort) 2 puff inhalation Q12H COPD 01/27/22 [History Last Taken 01/26/22 18:00] dulaglutide 0.75 mg/0.5 mL subcutaneous pen injector (Trulicity) 0.75 mg subcut QWEEK Diabetes 01/27/22 [History Last Taken 01/27/22] albuterol sulfate 2.5 mg/0.5 mL solution for nebulization 2.5 mg (0.5 mL) inhalation Q2H PRN shortness of breath or wheezing #30 ea 01/31/22 [Rx Last Taken Unknown] baclofen 10 mg tablet 10 mg PO TID muscle spasm 08/16/22 [History Last Taken Unknown] bupropion HCl 150 mg tablet,12 hr sustained-release 150 mg PO BID depression 08/16/22 [History Last Taken Unknown] furosemide 20 mg tablet 10 mg PO DAILY water pill 08/16/22 [History Last Taken Unknown] gabapentin 300 mg capsule 300 mg DAILY neuropathy 08/16/22 [History Last Taken Unknown] leflunomide 20 mg tablet 20 mg PO DAILY RA 08/16/22 [History Last Taken Unknown] metoprolol succinate 25 mg tablet,extended release 24 hr 25 mg PO DAILY bp 08/16/22 [History Last Taken Unknown] potassium chloride 10 mEq tablet,extended release 10 meq PO DAILY supplement 08/16/22 [History Last Taken Unknown] pramipexole 0.5 mg tablet 0.5 mg PO BID Check with primary doctor 08/16/22 [History Last Taken Unknown] pregabalin 50 mg capsule 50 mg PO BID pain 08/16/22 [History Last Taken Unknown] tamsulosin 0.4 mg capsule 0.4 mg PO DAILY Check with primary doctor 08/16/22 [History Last Taken Unknown] Allergy/AdvReac Type Severity Reaction Status Date / Time clindamycin Allergy Swelling Verified 08/16/22 12:43 metformin AdvReac Nausea Verified 08/16/22 12:43 Family History Father Arthritis Cancer Diabetes Heart disease Hypertension Mother Hypertension Sister Arthritis Lupus Daughter Kidney stones Surgical History Bowel obstruction History of hysterectomy for cancer tumer removed from colon Social History household members: family Smoking Status: Current every day smoker tobacco type: cigarettes alcohol intake: never substance use type: does not use ROS Review of Systems ROS Unobtainable: other Physical Exam Narrative Alert awake oriented x 3 respiratory distress no pallor no icterus no JVD s1s2 no murmurs lungs clear abdomen soft no organomegaly no edema no cyanosis barcenas + Lab / Micro Data Result Diagrams: 08/17/22 05:10 08/17/22 05:10 Labs: Laboratory Results - last 24 hr 08/16/22 12:50: B-Natriuretic Peptide 107.9 H 08/16/22 15:33: Potassium 6.9 H* 08/16/22 17:55: Sodium 138, Potassium 6.8 H*, Chloride 113 H, Carbon Dioxide 20.0 L, Anion Gap 5, BUN 52 H, Creatinine 3.64 H, Estim Creat Clear Calc 12.67, Est GFR (MDRD) Af Amer 16 L, Est GFR (MDRD) Non-Af 13 L, BUN/Creatinine Ratio 14.3, Glucose 228 H, Calcium 8.8 08/16/22 18:01: POC Glucose 230 H 08/16/22 18:58: Lactic Acid 0.6 08/16/22 19:00: Urine Color Yellow, Urine Clarity Turbid, Urine pH 6.5, Ur Specific [place] 1.015, Urine Protein 100 H, Urine Glucose (UA) Normal, Urine Ketones 5 H, Urine Occult Blood 25 H, Urine Nitrite Negative, Urine Bilirubin Negative, Urine Urobilinogen 1 H, Ur Leukocyte Esterase 500 H, Urine RBC 0 SEEN, Urine WBC >100 SEEN, Ur Squamous Epith Cells 0 SEEN, Urine Bacteria 0 SEEN, Urine Mucus 0 SEEN 08/16/22 20:35: Acetone Level NEGATIVE 08/16/22 23:35: Sodium 138, Potassium 6.6 H*, Chloride 110 H, Carbon Dioxide 24.0, Anion Gap 4 L, BUN 57 H, Creatinine 4.10 H, Estim Creat Clear Calc 11.25, Est GFR (MDRD) Af Amer 14 L, Est GFR (MDRD) Non-Af 12 L, BUN/Creatinine Ratio 13.9, Glucose 285 H, Calcium 8.9 08/17/22 05:10: WBC 11.8 H, RBC 3.11 L, Hgb 8.4 L, Hct 28.3 L, MCV 91.0, MCH 27.0, MCHC 29.7 L, RDW Std Deviation 49.6 H, RDW Coeff of Mat 14.8 H, Plt Count 204, MPV 9.6, Immature Gran % (Auto) 0.900, Neut % (Auto) 90.5 H, Lymph % (Auto) 6.6 L, [place] % (Auto) 1.9, Eos % (Auto) 0.0, Baso % (Auto) 0.1, Absolute Neuts (auto) 10.6 H, Absolute Lymphs (auto) 0.78 L, Nucleated RBC % 0 08/17/22 05:10: Sodium 138, Potassium 6.1 H*, Chloride 107, Carbon Dioxide 24.0, Anion Gap 7, BUN 58 H, Creatinine 4.20 H, Estim Creat Clear Calc 10.98, Est GFR (MDRD) Af Amer 14 L, Est GFR (MDRD) Non-Af 11 L, BUN/Creatinine Ratio 13.8, Glucose 266 H, Calcium 8.6 08/17/22 05:14: POC Glucose 264 H 08/17/22 09:55: Hep Bs Antigen Non-Reactive 08/17/22 13:03: POC Glucose 178 H Micro: Microbiology 08/16/22 19:00 Urine, Clean Catch Urine Culture - Preliminary 08/16/22 19:00 Urine Catheter - [place] Legionella Antigen - Final 08/16/22 19:00 Urine Catheter - Barcenas Streptococcus pneumoniae Antigen (M - Final Streptococcus pneumonia Ag 08/16/22 13:25 Nasal Secretion SARS-CoV-2 & FLU Antigen (Rapid) - Final ABG Data ABG results: ABG 08/16/22 08/16/22 08/17/22 17:49 20:47 07:35 Specimen Type ART ART ART Sample Site L Radial L Radial L Radial pH 7.10 L* 7.16 L* 7.21 L Bicarbonate Actual 18.8 L 20.4 L 24.4 Total CO2 21 22 26 Base Excess -11 L -8 L -4 L O2 Saturation 89 L 90 L 89 L O2 % 35 35 35 ABG pCO2 61.3 H 56.8 H 61.5 H ABG pO2 76 76 71 L Chapo Test Positive Positive N/A Respiration Rate 16 16 O2 Delivery Device BiPAP BiPAP BiPAP Vent Mode avaps Tidal Volume 450 450 POC PEEP 10 12 Crit Call To/Read Back Yes Yes Yes Blood Gas Notified Whom TASHA finley Clinical Comments 12/04 Radiology Impression Chest X-Ray 08/17/22 06:31 IMPRESSION: Satisfactory central venous catheter positioning. No pneumothorax. Electronically Signed: Cruzito Jose MD at 7:25 EST ,
--- NOTE | 2022-08-17 15:11 | PCM.OP.PRO ---
Procedure Report Date of Procedure: 08/17/22 consent obtained from patient. IJ vein visualized under US, compressible. site cleaned with chlorprep. sterile drape applied. Local anesthesia with lidocaine. Vein access gained on first attempt, wire advanced without any resistance. wire confirmed in IJ lumen under US guidance. serial dilators used for tract dilation and 12/16 cm 2 lumen HD catheter placed, wire withdrawn intact. Sutures applied. CXR ordered for placement confirmation. no immediate complications.
[2022-08-17 17:45] LABS: Bedside Glucose 192 mg/dL (74-106)
--- NOTE | 2022-08-17 20:52 | NURSING ---
1930 pt to BS for BM, then back to bed. requesting Mirapex for restless leg syndrome paged for home med
[2022-08-17 21:26] LABS: Bedside Glucose 223 mg/dL (74-106)
--- NOTE | 2022-08-17 21:42 | CPS ---
Attempted to put pt on bipap for the night. Pt didn't tolerate AVAPS settings, and felt as if the pressure was to much. Settings changed to 14/8 R12 and 30%. Pt was unable to tolerate this as well and took the bipap off herself after 15 minutes. Will attempt to put pt on bipap again for the night after restless leg medication is given, RN aware.
[2022-08-17] MEDS: Pramipexole Di-HCl 0.5 MG Tablet PO (21:53)
--- NOTE | 2022-08-17 23:23 | NURSING ---
patient back to bed, states legs less restless, feels drowsy, does not think she can tolerate bipap at this time
[2022-08-18] VITALS (20 sets, daily range): BP systolic 122–155; BP diastolic 60–78; PULSE 92–111; RESP 15–22; TEMP 36.9–37.8; O2SAT 92–98
[2022-08-18] MEDS: Ipratropium/Albuterol Sulfate 3 ML AMPUL.NEB INHALATION ×3 (01:37→20:10)
--- NOTE | 2022-08-18 01:50 | NURSING ---
0150 pt awake after aerosol treatment, states did rest some, almost fell asleep. Explained need for Bipap to prevent difficulties we had this am, patient states she doesn't think she can tolerate, not willing to try at this time. Explained that at any point she becomes lethargic or confused it won't be an option. patient states will try to wear later in the morning. Monitor sinus tach, HR 107. RR 16. pulse ox 91% on 4L NC. patient denies pain.
[2022-08-18] MEDS: 0.9% Saline Lock 10 ML Syringe IV ×2 (04:41→21:18)
[2022-08-18 04:55] LABS: Absolute Lymphocyte Count 0.61 X10^3/uL (0.83-4.51); Absolute Neutrophil Count 10.1 X10^3/uL (2.0-7.7); Basophil# 0.01 X10^3/uL; Basophil% 0.1 % (0-1); Hematocrit 25.8 % (37-47); Lymphocyte # 0.61 X10^3/ul (0.83-4.51); Lymphocyte % 5.5 % (19-41); Mean Corpuscular Hgb 27.3 pg (27.0-32.0); Mean Corpuscular Volume 88.1 fL (81-99); Mean Platelet Vol. 9.6 fl (6.2-12.0); Monocyte# 0.24 X10^3/uL; Monocyte% 2.2 % (0-10); NRBC Flagged by Analyzer 0.3 % (0-5); Neutrophil # 10.14 X10^3/uL (2.7-7.7); Neutrophil % 90.8 % (47-70); Platelet Count 229 K/mm3 (150-450); RBC Distribution Width CV 14.6 % (11.6-14.6); RBC Distribution Width SD 47.3 fl (35.1-43.9); Red Blood Count 2.93 M/mm3 (4.2-5.4); White Blood Count 11.2 K/mm3 (4.4-11.0)
[2022-08-18 05:22] LABS: AST(SGOT) 9 U/L (15-37); Alanine Aminotransfer ALT/SGPT 15 U/L (13-56); Alkaline Phosphatase 74 U/L (45-117); BUN 47 mg/dL (7-18); Calcium,Total 7.1 mg/dL (8.5-10.1); Chloride 108 mmol/L (98-107); Creatinine, Serum 3.62 mg/dL (0.55-1.02); EST Glomerular Filtration Rate 14 mL/min (>60); Est Glom Filt Rate - Afr Amer 16 mL/min (>60); Estimated Creatinine Clearance 12.74 ml/min; Globulin 3.3 g/dL (2.2-4.2); Glucose 210 mg/dL (74-106); Phosphorus 4.5 mg/dL (2.5-4.9); Potassium 4.6 mmol/L (3.5-5.1); Protein, Total 5.3 g/dL (6.4-8.2); Sodium Level 140 mmol/L (136-145)
--- NOTE | 2022-08-18 07:37 | PN.CC_ITS ---
Assessment & Plan Assessment/Plan (1) Acute respiratory failure with hypercapnia: (2) Right upper lobe pneumonia: (3) Acute kidney injury superimposed on chronic kidney disease: (4) Severe sepsis: PLAN: Plan RECOMMENDATIONS: 1. Encourage incentive spirometer and activity as tolerated 2. Continue empiric antibiotics pending cultures 3. Titrate oxygen saturations between 90 and 94% 4. Dialysis timing per nephrology 5. Continue steroids, bronchodilators with BiPAP as needed 6. Monitor blood sugars closely 7. Okay to leave the intensive care unit from my perspective IMPRESSIONS: 1. Acute combined respiratory failure secondary to right lower lobe pneumonia Unclear if patient has an element of aspiration. Patient has been noncompliant with NARCISO therapy, increasing risk of complications. Patient with significant hypercarbic respiratory failure on presentation. Patient appears to have responded significantly to dialysis. Did stressed to the patient that refusal of BiPAP does increased risk for respiratory compromise. Unclear baseline respiratory status does complicate overall condition, but patient does appear to have an element of CO2 retention at baseline. 2. Sepsis Unclear etiology of ongoing sepsis. Patient does have a right lower lobe infiltrate, but also has lower extremity wounds with surrounding erythema. Patient is on empiric antibiotics at this time. Pancultures are currently pending. Evidence of endorgan damage include kidney function and respiratory failure. Doubt pressors will be required at this point. 3. Acute on CKD stage III/hyperkalemia Patient appears to have a baseline creatinine of approximately 1.6 and presented with a creatinine of 3.83. Unfortunately, patient has had hyperkalemia with marginal urine output. Patient does have a temporary dialysis line. Patient able to tolerate dialysis yesterday. Will defer to nephrology on repeat dialysis today. Still has some urine output, but not adequate. This is likely complicating problem #1. 4. Hyperlipidemia/reported COPD/uncontrolled diabetes mellitus type 2/hypertension/NARCISO with noncompliance/obesity Complicates care, management, recovery and prognosis. We will need to watch blood sugars closely given steroid therapy. Likely okay to initiate p.o. diet. May need to reinitiate basal insulin. We will continue with sliding scale insulin for now. Hold on p.o. antihypertensives until urine output impr oves Subjective Subjective Patient was able to tolerate hemodialysis yesterday. Patient still requiring supplemental oxygen and refused BiPAP overnight. However, respiratory status is much improved subjectively. Patient was able to get to the chair this morning. Patient has had some urine output and feels subjectively much improved compared to yesterday. Objective Data Objective Data Vital Signs: Vital Signs Temp Pulse Resp BP Pulse Ox O2 Del Method O2 Flow Rate 37.2 C 101 H 17 122/67 H 94 Nasal Cannula 3 08/18/22 07:00 08/18/22 07:13 08/18/22 07:13 08/18/22 07:00 08/18/22 07:13 08/18/22 07:13 08/18/22 07:13 FiO2 94 08/18/22 04:00 Oxygen Flow Rate (L/min) 3 Oxygen Delivery Method Nasal Cannula Weight: 92.2 kg Body Mass Index (BMI) 34.4 Intake & Output: Intake and Output for Last 24 Hours 08/16/22 08/17/22 08/18/22 23:59 23:59 23:59 Intake Total 1538.33 / 1538.33 1883.33 / 1883.33 125 / 125 Output Total 225 / 225 760 / 760 120 / 120 Balance 1313.33 / 1313.33 1123.33 / 1123.33 5 / 5 Lab / Micro Data Attestation: I reviewed the patient's lab results. Result Diagrams: 08/18/22 04:35 08/18/22 04:35 Labs: Laboratory Results - last 24 hr 08/17/22 09:55: Hep Bs Antigen Non-Reactive 08/17/22 13:03: POC Glucose 178 H 08/17/22 17:21: POC Glucose 192 H 08/17/22 20:55: POC Glucose 223 H 08/18/22 04:35: WBC 11.2 H, RBC 2.93 L, Hgb 8.0 L, Hct 25.8 L, MCV 88.1, MCH 27.3, MCHC 31.0 L, RDW Std Deviation 47.3 H, RDW Coeff of Mat 14.6, Plt Count 229, MPV 9.6, Immature Gran % (Auto) 1.400 H, Neut % (Auto) 90.8 H, Lymph % (Auto) 5.5 L, [place] % (Auto) 2.2, Eos % (Auto) 0.0, Baso % (Auto) 0.1, Absolute Neuts (auto) 10.1 H, Absolute Lymphs (auto) 0.61 L, Nucleated RBC % 0.3 08/18/22 04:35: Sodium 140, Potassium 4.6, Chloride 108 H, Carbon Dioxide 24.0, BUN 47 H, Creatinine 3.62 H, Estim Creat Clear Calc 12.74, Est GFR (MDRD) Af Amer 16 L, Est GFR (MDRD) Non-Af 14 L, BUN/Creatinine Ratio 13.0, Glucose 210 H, Calcium 7.1 L, Phosphorus 4.5, Total Bilirubin 0.30, Direct Bilirubin 0.10, AST 9 L, ALT 15, Alkaline Phosphatase 74, Total Protein 5.3 L, Albumin 2.0 L, Amy bulin 3.3 Micro: Microbiology 08/16/22 19:00 Urine, Clean Catch Urine Culture - Preliminary 08/16/22 19:00 Urine Catheter - Gaffney Legionella Antigen - Final 08/16/22 19:00 Urine Catheter - Gaffney Streptococcus pneumoniae Antigen (M - Final Streptococcus pneumonia Ag 08/16/22 13:25 Nasal Secretion SARS-CoV-2 & FLU Antigen (Rapid) - Final ABG Data ABG results: ABG 08/17/22 07:35 Specimen Type ART Sample Site L Radial pH 7.21 L Bicarbonate Actual 24.4 Total CO2 26 Base Excess -4 L O2 Saturation 89 L O2 % 35 ABG pCO2 61.5 H ABG pO2 71 L Chapo Test N/A Respiration Rate 16 O2 Delivery Device BiPAP Vent Mode avaps Tidal Volume 450 POC PEEP 12 Crit Call To/Read Back Yes Blood Gas Notified Whom dr finley Physical Exam Const alert, oriented x3 and no apparent distress Constitutional Narrative: Sitting in the chair and conversant. Obese. HEENT normocephalic, head/scalp atraumatic, hearing grossly normal bilaterally and moist oral mucous membranes Eyes PERRL and EOMs intact bilaterally Neck no lymphadenopathy and supple Neck Narrative: Right IJ HD cath clean, dry and intact Resp Auscultation: diminished lung sounds; Negative for rales, rhonchi or wheezes Cardio regular rate, regular rhythm, S1 normal heart sound, S2 normal heart sound, no murmurs, no rub and no gallops GI normal to inspection, nondistended, normoactive bowel sounds, soft to palpation and non-tender Extremity normal to inspection and full ROM General Extremity: edema Skin Skin Narrative: Bilateral lower extremity superficial ulcers with surrounding erythema Neuro oriented x3, CN's II-XII intact bilaterally, moves all extremities and no focal motor deficits Psych cooperative and affect normal Charges/Coding Visit Charges Inpatient E&M: 03197 Subs Hosp L3
[2022-08-18] MEDS: Insulin Lispro 100 UNIT/ML INSULN.PEN SC ×3 (08:54→21:16)
[2022-08-18 09:16] LABS: Bedside Glucose 231 mg/dL (74-106)
--- NOTE | 2022-08-18 09:52 | PCM.PN.HOSP ---
Subjective Subjective Follow-up on acute on chronic combined respiratory failure/pneumonia/acute metabolic encephalopathy/hyperkalemia/MARIANA: Patient was seen and examined. She had dialysis done yesterday. She is more awake and oriented today. Urine output has been nonoliguric. She denies any chest pain or dizziness. Objective Data Objective Data Vital Signs: Vital Signs Temp Pulse Resp BP Pulse Ox O2 Del Method O2 Flow Rate 98.9 F 104 H 18 138/61 H 93 Nasal Cannula 4 08/18/22 07:00 08/18/22 08:00 08/18/22 08:00 08/18/22 08:00 08/18/22 08:00 08/18/22 08:00 08/18/22 08:00 FiO2 94 08/18/22 04:00 Oxygen Flow Rate (L/min) 4 Oxygen Delivery Method Nasal Cannula Weight: 92.2 kg Body Mass Index (BMI) 34.4 Intake & Output: Intake and Output for Last 24 Hours 08/16/22 08/17/22 08/18/22 23:59 23:59 23:59 Intake Total 1538.33 / 1538.33 1883.33 / 1883.33 125 / 125 Output Total 225 / 225 760 / 760 120 / 120 Balance 1313.33 / 1313.33 1123.33 / 1123.33 5 / 5 Lab / Micro Data Result Diagrams: 08/18/22 04:35 08/18/22 04:35 Labs: Laboratory Results - last 24 hr 08/17/22 09:55: Hep Bs Antigen Non-Reactive 08/17/22 13:03: POC Glucose 178 H 08/17/22 17:21: POC Glucose 192 H 08/17/22 20:55: POC Glucose 223 H 08/18/22 04:35: WBC 11.2 H, RBC 2.93 L, Hgb 8.0 L, Hct 25.8 L, MCV 88.1, MCH 27.3, MCHC 31.0 L, RDW Std Deviation 47.3 H, RDW Coeff of Mat 14.6, Plt Count 229, MPV 9.6, Immature Gran % (Auto) 1.400 H, Neut % (Auto) 90.8 H, Lymph % (Auto) 5.5 L, [place] % (Auto) 2.2, Eos % (Auto) 0.0, Baso % (Auto) 0.1, Absolute Neuts (auto) 10.1 H, Absolute Lymphs (auto) 0.61 L, Nucleated RBC % 0.3 08/18/22 04:35: Sodium 140, Potassium 4.6, Chloride 108 H, Carbon Dioxide 24.0, BUN 47 H, Creatinine 3.62 H, Estim Creat Clear Calc 12.74, Est GFR (MDRD) Af Amer 16 L, Est GFR (MDRD) Non-Af 14 L, BUN/Creatinine Ratio 13.0, Glucose 210 H, Calcium 7.1 L, Phosphorus 4.5, Total Bilirubin 0.30, Direct Bilirubin 0.10, AST 9 L, ALT 15, Alkaline Phosphatase 74, Total Protein 5.3 L, Albumin 2.0 L, Globulin 3.3 08/18/22 08:53: POC Glucose 231 H Micro: Microbiology 08/16/22 19:00 Urine, Clean Catch Urine Culture - Preliminary 08/16/22 19:00 Urine Catheter - Gaffney Legionella Antigen - Final 08/16/22 19:00 Urine Catheter - Gaffney Streptococcus pneumoniae Antigen (M - Final Streptococcus pneumonia Ag 08/16/22 13:25 Nasal Secretion SARS-CoV-2 & FLU Antigen (Rapid) - Final Physical Exam Narrative Physical exam: General: Alert, Oriented x3, Cooperative, HEENT: Atraumatic Oral: Moist Mucosa Neck: Supple Lungs: Diminished to auscultation Cardiovascular: HS I+II, regular, right IJ dialysis catheter Abdomen: Bowel Sounds Present, Soft, Non Tender, Gaffney catheter in situ Extremities: Bilateral leg edema, trace with multiple ulceration with surrounding erythema on both lower extremities, right more than left Skin: See lower extremity Neurological: Grossly intact Psych/Mental Status: Appropriate Assessment & Plan Assessment/Plan (1) Acute kidney injury superimposed on chronic kidney disease: (2) Acute respiratory failure with hypercapnia: PLAN: Plan 1. MARIANA on CKD stage III, status post dialysis on 08/17/22 via right IJ tunneled catheter Creatinine today is 3.62 from 4.20 Nephrology following, dialysis planned again today 2. Hyperkalemia, secondary to #1, resolved with dialysis 3. Acute combined respiratory failure secondary to right upper lobe pneumonia, probable aspiration pneumonia versus COPD exacerbation, appears improved, currently on 2 L of oxygen Continue BiPAP, IV Zosyn, IV Solu-Medrol Critical care following 4. Acute right upper lobe pneumonia, suspected aspiration pneumonia Continue IV Zosyn, speech therapy consulted 5. Acute metabolic encephalopathy secondary to #3 and 4, resolved 6. Type II DM, complicated by peripheral neuropathy blood sugars are elevated, Home insulin regimen, gabapentin and cymbalta on hold Continue with med-high dose insulin sliding scale with blood glucose checks Possible resumption of insulin regimen if blood sugars remain high 7. Hypertension/hyperlipidemia, home lisinopril, metoprolol, spironolactone on hold Continue to monitor 8. Rheumatoid arthritis, continue to hold leflunomide 9. DVT prophylaxis?on Lovenox subcu Charges/Coding Visit Charges Inpatient E&M: 02958 Subs Hosp L3
[2022-08-18] MEDS: Enoxaparin 30 MG/0.3 ML Syringe SC (10:28)
[2022-08-18] MEDS: FLU VACC QS2022-23(6MOS UP)/PF 60 MCG/0.5 ML SYRINGE IM (10:28)
[2022-08-18 13:15] LABS: Bedside Glucose 266 mg/dL (74-106)
--- NOTE | 2022-08-18 15:31 | PCM.PN.REN ---
Documented by User: YA Dwyer 08/18/22 15:36 Subjective Subjective Following for MARIANA Seen and examined on dialysis. Tolerating treatment well. Objective Data Objective Data Vital Signs: Vital Signs Temp Pulse Resp BP Pulse Ox O2 Del Method O2 Flow Rate 99.0 F 103 H 16 138/67 H 96 Nasal Cannula 2 08/18/22 12:00 08/18/22 12:29 08/18/22 12:00 08/18/22 12:00 08/18/22 12:00 08/18/22 12:00 08/18/22 12:09 FiO2 94 08/18/22 04:00 Oxygen Flow Rate (L/min) 2 Oxygen Delivery Method Nasal Cannula Weight: 92.2 kg Body Mass Index (BMI) 34.4 Intake & Output: Intake and Output for Last 24 Hours 08/16/22 08/17/22 08/18/22 23:59 23:59 23:59 Intake Total 1538.33 / 1538.33 1883.33 / 1883.33 175 / 175 Output Total 225 / 225 760 / 760 270 / 270 Balance 1313.33 / 1313.33 1123.33 / 1123.33 -95 / -95 Lab / Micro Data Result Diagrams: 08/18/22 04:35 08/18/22 04:35 Labs: Laboratory Results - last 24 hr 08/17/22 17:21: POC Glucose 192 H 08/17/22 20:55: POC Glucose 223 H 08/18/22 04:35: WBC 11.2 H, RBC 2.93 L, Hgb 8.0 L, Hct 25.8 L, MCV 88.1, MCH 27.3, MCHC 31.0 L, RDW Std Deviation 47.3 H, RDW Coeff of Mat 14.6, Plt Count 229, MPV 9.6, Immature Gran % (Auto) 1.400 H, Neut % (Auto) 90.8 H, Lymph % (Auto) 5.5 L, [place] % (Auto) 2.2, Eos % (Auto) 0.0, Baso % (Auto) 0.1, Absolute Neuts (auto) 10.1 H, Absolute Lymphs (auto) 0.61 L, Nucleated RBC % 0.3 08/18/22 04:35: Sodium 140, Potassium 4.6, Chloride 108 H, Carbon Dioxide 24.0, BUN 47 H, Creatinine 3.62 H, Estim Creat Clear Calc 12.74, Est GFR (MDRD) Af Amer 16 L, Est GFR (MDRD) Non-Af 14 L, BUN/Creatinine Ratio 13.0, Glucose 210 H, Calcium 7.1 L, Phosphorus 4.5, Total Bilirubin 0.30, Direct Bilirubin 0.10, AST 9 L, ALT 15, Alkaline Phosphatase 74, Total Protein 5.3 L, Albumin 2.0 L, Globulin 3.3 08/18/22 08:53: POC Glucose 231 H 08/18/22 12:55: POC Glucose 266 H Micro: Microbiology 08/16/22 19:00 Urine, Clean Catch Urine Culture - Preliminary Alpha hemolytic organism 08/16/22 19:00 Urine Catheter - Barcenas Legionella Antigen - Final 08/16/22 19:00 Urine Catheter - Barcenas Streptococcus pneumoniae Antigen (M - Final Streptococcus pneumonia Ag 08/16/22 13:25 Nasal Secretion SARS-CoV-2 & FLU Antigen (Rapid) - Final Physical Exam Narrative Alert, awake, no apparent distress s1s2 no murmurs Diminished breath sounds posterior bases abdomen soft no organomegaly Trace lower extremity edema barcenas + Assessment & Plan Assessment/Plan (1) Acute kidney injury superimposed on chronic kidney disease: PLAN: MARIANA likely from ATN from sepsis. Initially oliguric. Baseline SCr 1.5mg/dL. Due to hyperkalemia, worsening kidney function and little urine output patient underwent first hemodialysis 08/17. Patient undergoing hemodialysis again today and attempting around 1 L fluid removal. Will continue to monitor for renal recovery. Urine output may be picking up will check renal US (2) Hyperkalemia: Documented by User: Dr. Eduard Baez MD 08/18/22 18:27 Objective Data Lab / Micro Data Result Diagrams: 08/18/22 04:35 08/18/22 04:35 Assessment & Plan Assessment/Plan (1) Acute kidney injury superimposed on chronic kidney disease: PLAN: MARIANA likely from ATN from sepsis. Initially oliguric. Baseline SCr 1.5mg/dL. Due to hyperkalemia, worsening kidney function and little urine output patient underwent first hemodialysis 08/17. Patient undergoing hemodialysis again today and attempting around 1 L fluid removal. Will continue to monitor for renal recovery. Urine output may be picking up will check renal US Attending addendum agree with above. HD for now renal US (2) Hyperkalemia:
--- NOTE | 2022-08-18 15:36 | US_ITS ---
STUDY: RENAL ULTRASOUND - COMPLETE REASON FOR EXAM: Female, 62 years old. MARIANA TECHNIQUE: Ultrasound evaluation of the kidneys was performed with real-time and static chen-scale imaging. COMPARISON: 04/25/2020 FINDINGS: RIGHT KIDNEY: Normal location of the right kidney, which is normal in size. The right kidney measures 12.8 cm. There is a normal cortex of the right kidney. The renal cortex measures 1.5 cm. There is no right renal mass or cyst. There are no right renal calculi. There is no right hydronephrosis. DISTAL RIGHT URETER: There is non-visualization of the distal right ureter. There is no demonstrated right ureterovesical junction calculus. There is a visualized right ureteral jet. LEFT KIDNEY: Normal location of the left kidney, which is normal in size. The left kidney measures 12.5 cm. There is a normal cortex of the left kidney. The renal cortex measures 2.4 cm. 1 cm cyst in the upper pole the left kidney. There are no left renal calculi. There is no left hydronephrosis. DISTAL LEFT URETER: There is non-visualization of the distal left ureter. There is no demonstrated left ureterovesical junction calculus. There is a visualized left ureteral jet. BLADDER: The distended urinary bladder has a volume of 7 ml. The empty urinary bladder has a volume of ml. There is a normal wall thickness of the distended urinary bladder. There is no demonstrated mass within the urinary bladder. There are no demonstrated bladder calculi. US/Kidney and Bladder IMPRESSION: Normal ultrasound of the kidneys and urinary bladder. Electronically Signed: Ivan Mullen MD at 21:01 EST ,
[2022-08-18] MEDS: Heparin 10,000 UNITS/10 ML Vial 2000 UNITS IV (18:02)
--- NOTE | 2022-08-18 20:17 | CPS ---
Pt refusing BiPAP for tonight
[2022-08-18] MEDS: Pramipexole Di-HCl 0.5 MG Tablet PO (21:17)
[2022-08-18 22:45] LABS: Bedside Glucose 227 mg/dL (74-106)
[2022-08-19] VITALS (15 sets, daily range): BP systolic 131–162; BP diastolic 57–78; PULSE 85–111; RESP 16–20; TEMP 36.6–37.2; O2SAT 92–98
[2022-08-19] MEDS: Ipratropium/Albuterol Sulfate 3 ML AMPUL.NEB INHALATION ×4 (00:34→22:03)
[2022-08-19 05:37] LABS: Absolute Lymphocyte Count 0.74 X10^3/uL (0.83-4.51); Absolute Neutrophil Count 9.8 X10^3/uL (2.0-7.7); Basophil# 0.02 X10^3/uL; Basophil% 0.2 % (0-1); Hematocrit 27.4 % (37-47); Hemoglobin 8.9 g/dL (12.0-15.0); Lymphocyte # 0.74 X10^3/ul (0.83-4.51); Lymphocyte % 6.7 % (19-41); Mean Corp Hgb Conc 32.5 g/dL (32-36); Mean Corpuscular Hgb 28.1 pg (27.0-32.0); Mean Corpuscular Volume 86.4 fL (81-99); Mean Platelet Vol. 9.7 fl (6.2-12.0); Monocyte% 3.6 % (0-10); NRBC Flagged by Analyzer 0 % (0-5); Neutrophil # 9.77 X10^3/uL (2.7-7.7); Platelet Count 257 K/mm3 (150-450); RBC Distribution Width CV 14.6 % (11.6-14.6); RBC Distribution Width SD 46.2 fl (35.1-43.9); Red Blood Count 3.17 M/mm3 (4.2-5.4); White Blood Count 11.1 K/mm3 (4.4-11.0)
[2022-08-19 06:07] LABS: AST(SGOT) 9 U/L (15-37); Alanine Aminotransfer ALT/SGPT 15 U/L (13-56); Albumin, Serum 2.5 g/dL (3.2-5.0); Alkaline Phosphatase 83 U/L (45-117); BUN 40 mg/dL (7-18); BUN/Creat Ratio 11.9 RATIO (10-20); Bilirubin, Direct 0.15 mg/dL (0.00-0.30); Calcium,Total 7.5 mg/dL (8.5-10.1); Chloride 101 mmol/L (98-107); Creatinine, Serum 3.37 mg/dL (0.55-1.02); EST Glomerular Filtration Rate 15 mL/min (>60); Est Glom Filt Rate - Afr Amer 18 mL/min (>60); Estimated Creatinine Clearance 13.69 ml/min; Globulin 3.7 g/dL (2.2-4.2); Glucose 254 mg/dL (74-106); Phosphorus 4.4 mg/dL (2.5-4.9); Potassium 4.3 mmol/L (3.5-5.1); Protein, Total 6.2 g/dL (6.4-8.2); Sodium Level 138 mmol/L (136-145)
[2022-08-19] MEDS: Insulin Lispro 100 UNIT/ML INSULN.PEN SC ×4 (06:56→23:05)
[2022-08-19 08:00] LABS: Bedside Glucose 253 mg/dL (74-106)
[2022-08-19] MEDS: Enoxaparin 30 MG/0.3 ML Syringe SC (09:13)
--- NOTE | 2022-08-19 11:10 | PN.CC_ITS ---
Assessment & Plan Assessment/Plan (1) Acute respiratory failure with hypercapnia: (2) Right upper lobe pneumonia: (3) Acute kidney injury superimposed on chronic kidney disease: (4) Severe sepsis: PLAN: Plan RECOMMENDATIONS: 1. Encourage incentive spirometer and activity as tolerated 2. Defer course of antibiotics to hospitalist 3. Walking oximetry prior to discharge 4. Dialysis timing per nephrology 5. Continue bronchodilators with BiPAP as needed 6. Monitor blood sugars closely 7. Transition to prednisone and wean over 8 to 10 days 8. Hemodynamically stable on room air. Will sign off from a pulmonary/critical care perspective IMPRESSIONS: 1. Acute combined respiratory failure secondary to right lower lobe pne umonia Unclear if patient has an element of aspiration. Patient has been noncompliant with NARCISO therapy, increasing risk of complications. Patient with significant hypercarbic respiratory failure on presentation. Patient appears to have responded significantly to dialysis. Did stressed to the patient that refusal of BiPAP does increased risk for respiratory compromise. Unclear ba seline respiratory status does complicate overall condition, but patient does appear to have an element of CO2 retention at baseline. Patient currently hemodynamically stable on room air. Will sign off from a pulmonary perspective. Patient could follow-up as an outpatient for quantification clarification of COPD and surgical assistant certified with management if the patient is agreeable. 2. Sepsis Unclear etiology of ongoing sepsis. Patient does have a right lower lobe infiltrate, but also has lower extremity wounds with surrounding erythema. Patient is on empiric antibiotics at this time. Patient likely requires treatment for 7 to 10 days. Evidence of endorgan damage include kidney function and respiratory failure. Doubt pressors will be required at this point. 3. Acute on CKD stage III/hyperkalemia Patient appears to have a baseline creatinine of approximately 1.6 and presented with a creatinine of 3.83. Unfortunately, patient has had hyperkalemia with marginal urine output. Patient does have a temporary dialysis line. Patient able to tolerate dialysis. Will defer to nephrology on repeat dialysis today. Still has some urine output that appears to be improving. This is likely complicating problem #1. 4. Hyperlipidemia/reported COPD/uncontrolled diabetes mellitus type 2/hypertension/NARCISO with noncompliance/obesity Complicates care, management, recovery and prognosis. We will need to watch blood sugars closely given steroid therapy. Likely okay to initiate p.o. diet. May need to reinitiate basal insulin. We will continue with sliding scale insulin for now. Subjective Subjective Patient much more appropriate today compared to yesterday. Patient on room air without conversational dyspnea. Patient feels that she is getting back to normal. Objective Data Objective Data Vital Signs: Vital Signs Temp Pulse Resp BP Pulse Ox O2 Del Method O2 Flow Rate 37.2 C 88 20 H 162/75 H 97 Nasal Cannula 2 08/19/22 03:09 08/19/22 07:35 08/19/22 07:35 08/19/22 03:09 08/19/22 07:35 08/19/22 07:35 08/19/22 07:35 FiO2 94 08/18/22 04:00 Oxygen Flow Rate (L/min) 2 Oxygen Delivery Method Nasal Cannula Weight: 91.8 kg Body Mass Index (BMI) 34.4 Intake & Output: Intake and Output for Last 24 Hours 08/17/22 08/18/22 08/19/22 23:59 23:59 23:59 Intake Total 1883.33 / 1883.33 400.25 / 400.25 299.75 / 299.75 Output Total 760 / 760 695 / 695 550 / 550 Balance 1123.33 / 1123.33 -294.75 / -294.75 -250.25 / -250.25 Lab / Micro Data Attestation: I reviewed the patient's lab results. Result Diagrams: 08/19/22 04:25 08/19/22 04:25 Labs: Laboratory Results - last 24 hr 08/18/22 12:55: POC Glucose 266 H 08/18/22 21:15: POC Glucose 227 H 08/19/22 04:25: WBC 11.1 H, RBC 3.17 L, Hgb 8.9 L, Hct 27.4 L, MCV 86.4, MCH 28.1, MCHC 32.5, RDW Std Deviation 46.2 H, RDW Coeff of Mat 14.6, Plt Count 257, MPV 9.7, Immature Gran % (Auto) 1.500 H, Neut % (Auto) 88.0 H, Lymph % (Auto) 6.7 L, [place] % (Auto) 3.6, Eos % (Auto) 0.0, Baso % (Auto) 0.2, Absolute Neuts (auto) 9.8 H, Absolute Lymphs (auto) 0.74 L, Nucleated RBC % 0 08/19/22 04:25: Sodium 138, Potassium 4.3, Chloride 101, Carbon Dioxide 27.0, BUN 40 H, Creatinine 3.37 H, Estim Creat Clear Calc 13.69, Est GFR (MDRD) Af Amer 18 L, Est GFR (MDRD) Non-Af 15 L, BUN/Creatinine Ratio 11.9, Glucose 254 H, Calcium 7.5 L, Phosphorus 4.4, Total Bilirubin 0.40, Direct Bilirubin 0.15, AST 9 L, ALT 15, Alkaline Phosphatase 83, Total Protein 6.2 L, Albumin 2.5 L, Globulin 3.7 08/19/22 06:55: POC Glucose 253 H Micro: Microbiology 08/16/22 14:15 Blood Culture (Wb) #2 - Anticubital Right Blood Culture - Preliminary No growth in 48 hours. 08/16/22 14:25 Blood Culture (Wb) - Left Forearm Blood Culture - Preliminary No growth in 48 hours. 08/16/22 19:00 Urine, Clean Catch Urine Culture - Preliminary Alpha hemolytic organism 08/16/22 19:00 Urine Catheter - Gaffney Legionella Antigen - Final 08/16/22 19:00 Urine Catheter - Gaffney Streptococcus pneumoniae Antigen (M - Final Streptococcus pneumonia Ag 08/16/22 13:25 Nasal Secretion SARS-CoV-2 & FLU Antigen (Rapid) - Final Radiography Diagnostic Testing: Radiology Impression Renal Ultrasound 08/18/22 15:36 IMPRESSION: Normal ultrasound of the kidneys and urinary bladder. Electronically Signed: Ivan Mullen MD at 21:01 EST , Physical Exam Const alert, oriented x3 and no apparent distress Constitutional Narrative: Sitting in the chair on room air and conversant. Obese. HEENT normocephalic, head/scalp atraumatic, hearing grossly normal bilaterally and moist oral mucous membranes Eyes PERRL and EOMs intact bilaterally Neck no lymphadenopathy and supple Neck Narrative: Right IJ HD cath clean, dry and intact Resp Auscultation: diminished lung sounds; Negative for rales, rhonchi or wheezes Cardio regular rate, regular rhythm, S1 normal heart sound, S2 normal heart sound, no murmurs, no rub and no gallops GI normal to inspection, nondistended, normoactive bowel sounds, soft to palpation and non-tender Extremity normal to inspection and full ROM General Extremity: edema bilateral (Improving) lower extremity Skin Skin Narrative: Bilateral lower extremity superficial ulcers with surrounding erythema Neuro oriented x3, CN's II-XII intact bilaterally, moves all extremities and no focal motor deficits Psych cooperative and affect normal Charges/Coding Visit Charges Inpatient E&M: 90817 Subs Hosp L2
--- NOTE | 2022-08-19 11:49 | PCM.PN.REN ---
Documented by User: YA Dwyer 08/19/22 11:55 Subjective Subjective Sitting up in chair. Sister at bedside. Patient is alert and oriented. Looks better today. No overnight events. No complaints. Objective Data Objective Data Vital Signs: Vital Signs Temp Pulse Resp BP Pulse Ox O2 Del Method O2 Flow Rate 99 F 88 20 H 162/75 H 97 Nasal Cannula 2 08/19/22 03:09 08/19/22 07:35 08/19/22 07:35 08/19/22 03:09 08/19/22 07:35 08/19/22 07:35 08/19/22 07:35 FiO2 94 08/18/22 04:00 Oxygen Flow Rate (L/min) 2 Oxygen Delivery Method Nasal Cannula Weight: 91.8 kg Body Mass Index (BMI) 34.4 Intake & Output: Intake and Output for Last 24 Hours 08/17/22 08/18/22 08/19/22 23:59 23:59 23:59 Intake Total 1883.33 / 1883.33 400.25 / 400.25 299.75 / 299.75 Output Total 760 / 760 695 / 695 550 / 550 Balance 1123.33 / 1123.33 -294.75 / -294.75 -250.25 / -250.25 Lab / Micro Data Result Diagrams: 08/19/22 04:25 08/19/22 04:25 Labs: Laboratory Results - last 24 hr 08/18/22 12:55: POC Glucose 266 H 08/18/22 21:15: POC Glucose 227 H 08/19/22 04:25: WBC 11.1 H, RBC 3.17 L, Hgb 8.9 L, Hct 27.4 L, MCV 86.4, MCH 28.1, MCHC 32.5, RDW Std Deviation 46.2 H, RDW Coeff of Mat 14.6, Plt Count 257, MPV 9.7, Immature Gran % (Auto) 1.500 H, Neut % (Auto) 88.0 H, Lymph % (Auto) 6.7 L, [place] % (Auto) 3.6, Eos % (Auto) 0.0, Baso % (Auto) 0.2, Absolute Neuts (auto) 9.8 H, Absolute Lymphs (auto) 0.74 L, Nucleated RBC % 0 08/19/22 04:25: Sodium 138, Potassium 4.3, Chloride 101, Carbon Dioxide 27.0, BUN 40 H, Creatinine 3.37 H, Estim Creat Clear Calc 13.69, Est GFR (MDRD) Af Amer 18 L, Est GFR (MDRD) Non-Af 15 L, BUN/Creatinine Ratio 11.9, Glucose 254 H, Calcium 7.5 L, Phosphorus 4.4, Total Bilirubin 0.40, Direct Bilirubin 0.15, AST 9 L, ALT 15, Alkaline Phosphatase 83, Total Protein 6.2 L, Albumin 2.5 L, Globulin 3.7 08/19/22 06:55: POC Glucose 253 H Micro: Microbiology 08/16/22 14:15 Blood Culture (Wb) #2 - Anticubital Right Blood Culture - Preliminary No growth in 48 hours. 08/16/22 14:25 Blood Culture (Wb) - Left Forearm Blood Culture - Preliminary No growth in 48 hours. 08/16/22 19:00 Urine, Clean Catch Urine Culture - Preliminary Alpha hemolytic organism 08/16/22 19:00 Urine Catheter - Barcenas Legionella Antigen - Final 08/16/22 19:00 Urine Catheter - Barcenas Streptococcus pneumoniae Antigen (M - Final Streptococcus pneumonia Ag 08/16/22 13:25 Nasal Secretion SARS-CoV-2 & FLU Antigen (Rapid) - Final Radiography Diagnostic Testing: Radiology Impression Renal Ultrasound 08/18/22 15:36 IMPRESSION: Normal ultrasound of the kidneys and urinary bladder. Electronically Signed: Ivan Mullen MD at 21:01 EST , Physical Exam Narrative Alert, awake, no apparent distress s1s2 no murmurs Diminished breath sounds posterior bases abdomen soft no organomegaly Trace lower extremity edema barcenas + Right IJ non-tunneled temporary HD catheter dressing clean, dry and intact Assessment & Plan Assessment/Plan (1) Acute kidney injury superimposed on chronic kidney disease: PLAN: MARIANA likely from ATN from sepsis. Initially oliguric. Baseline SCr 1.5mg/dL. Due to hyperkalemia, worsening kidney function and little urine output patient underwent first hemodialysis 08/17 (SCr peaked 4.2mg/dL). Patient had dialysis again 08/18 with around 1 L fluid removed. No acute indication for BEAM DYER RECESSED VAT today. Potassium is 4.3 today. We will evaluate for dialysis needs tomorrow. Will continue to monitor for renal recovery. Urine output is picking up Renal ultrasound no hydronephrosis, normal ultrasound of kidneys and urinary bladder. Ur cx Streptococcus pneumonia, blood cultures so far no growth. Antibiotics, Zosyn. Spironolactone, torsemide, potassium chloride, lisinopril on hold. Blood pressure starting to trend upward. Will restart back on metoprolol succinate 25 mg daily Labs ordered for the morning D/W Dr. Huynh (2) Hyperkalemia: Documented by User: Dr. Eduard Baez MD 08/19/22 15:31 Objective Data Lab / Micro Data Result Diagrams: 08/19/22 04:25 08/19/22 04:25 Assessment & Plan Assessment/Plan (1) Acute kidney injury superimposed on chronic kidney disease: PLAN: MARIANA likely from ATN from sepsis. Initially oliguric. Baseline SCr 1.5mg/dL. Due to hyperkalemia, worsening kidney function and little urine output patient underwent first hemodialysis 08/17 (SCr peaked 4.2mg/dL). Patient had dialysis again 08/18 with around 1 L fluid removed. No acute indication for BEAM DYER RECESSED VAT today. Potassium is 4.3 today. We will evaluate for dialysis needs tomorrow. Will continue to monitor for renal recovery. Urine output is picking up Renal ultrasound no hydronephrosis, normal ultrasound of kidneys and urinary bladder. Ur cx Streptococcus pneumonia, blood cultures so far no growth. Antibiotics, Zosyn. Spironolactone, torsemide, potassium chloride, lisinopril on hold. Blood pressure starting to trend upward. Will restart back on metoprolol succinate 25 mg daily Labs ordered for the morning D/W Dr. Huynh Attending addendum. Patient was seen and examined independently. History of CKD stage IIIb, baseline around 1.6-1.8. On multiple diuretics, potassium supplements prior to admission. Came in with acute renal failure, hyperkalemia, respiratory failure. S/p dialysis x2. Clinically significantly better. On room air. Urine output has been good. Creatinine about the same. Hold dialysis for today. possible that she is recovering. Will assess for dialysis tomorrow. (2) Hyperkalemia:
[2022-08-19 11:51] LABS: Bedside Glucose 365 mg/dL (74-106)
--- NOTE | 2022-08-19 12:42 | PCM.PN.HOSP ---
Subjective Subjective Follow-up on acute on chronic combined respiratory failure/pneumonia/acute metabolic encephalopathy/hyperkalemia/MARIANA: Patient was seen and examined. She feels improved. Denied any fever chills or shortness of breath. Patient has had 2 sessions of dialysis. Discussed with nephrology, no dialysis planned for today. Objective Data Objective Data Vital Signs: Vital Signs Temp Pulse Resp BP Pulse Ox O2 Del Method O2 Flow Rate 99 F 88 20 H 162/75 H 97 Nasal Cannula 2 08/19/22 03:09 08/19/22 07:35 08/19/22 07:35 08/19/22 03:09 08/19/22 07:35 08/19/22 07:35 08/19/22 07:35 FiO2 94 08/18/22 04:00 Oxygen Flow Rate (L/min) 2 Oxygen Delivery Method Nasal Cannula Weight: 91.8 kg Body Mass Index (BMI) 34.4 Intake & Output: Intake and Output for Last 24 Hours 08/17/22 08/18/22 08/19/22 23:59 23:59 23:59 Intake Total 1883.33 / 1883.33 400.25 / 400.25 299.75 / 299.75 Output Total 760 / 760 695 / 695 550 / 550 Balance 1123.33 / 1123.33 -294.75 / -294.75 -250.25 / -250.25 Lab / Micro Data Result Diagrams: 08/19/22 04:25 08/19/22 04:25 Labs: Laboratory Results - last 24 hr 08/18/22 12:55: POC Glucose 266 H 08/18/22 21:15: POC Glucose 227 H 08/19/22 04:25: WBC 11.1 H, RBC 3.17 L, Hgb 8.9 L, Hct 27.4 L, MCV 86.4, MCH 28.1, MCHC 32.5, RDW Std Deviation 46.2 H, RDW Coeff of Mat 14.6, Plt Count 257, MPV 9.7, Immature Gran % (Auto) 1.500 H, Neut % (Auto) 88.0 H, Lymph % (Auto) 6.7 L, [place] % (Auto) 3.6, Eos % (Auto) 0.0, Baso % (Auto) 0.2, Absolute Neuts (auto) 9.8 H, Absolute Lymphs (auto) 0.74 L, Nucleated RBC % 0 08/19/22 04:25: Sodium 138, Potassium 4.3, Chloride 101, Carbon Dioxide 27.0, BUN 40 H, Creatinine 3.37 H, Estim Creat Clear Calc 13.69, Est GFR (MDRD) Af Amer 18 L, Est GFR (MDRD) Non-Af 15 L, BUN/Creatinine Ratio 11.9, Glucose 254 H, Calcium 7.5 L, Phosphorus 4.4, Total Bilirubin 0.40, Direct Bilirubin 0.15, AST 9 L, ALT 15, Alkaline Phosphatase 83, Total Protein 6.2 L, Albumin 2.5 L, Globulin 3.7 08/19/22 06:55: POC Glucose 253 H 08/19/22 11:27: POC Glucose 365 H Micro: Microbiology 08/16/22 14:15 Blood Culture (Wb) #2 - Anticubital Right Blood Culture - Preliminary No growth in 48 hours. 08/16/22 14:25 Blood Culture (Wb) - Left Forearm Blood Culture - Preliminary No growth in 48 hours. 08/16/22 19:00 Urine, Clean Catch Urine Culture - Preliminary Alpha hemolytic organism 08/16/22 19:00 Urine Catheter - Gaffney Legionella Antigen - Final 08/16/22 19:00 Urine Catheter - Gaffney Streptococcus pneumoniae Antigen (M - Final Streptococcus pneumonia Ag 08/16/22 13:25 Nasal Secretion SARS-CoV-2 & FLU Antigen (Rapid) - Final Radiography Diagnostic Testing: Radiology Impression Renal Ultrasound 08/18/22 15:36 IMPRESSION: Normal ultrasound of the kidneys and urinary bladder. Electronically Signed: Ivan Mullen MD at 21:01 [facility] , Physical Exam Narrative Physical exam: General: Alert, Oriented x3, Cooperative, HEENT: Atraumatic Oral: Moist Mucosa Neck: Supple Lungs: Diminished to auscultation Cardiovascular: HS I+II, regular, right IJ dialysis catheter Abdomen: Bowel Sounds Present, Soft, Non Tender, Gaffney catheter in situ Extremities: Bilateral leg edema, trace with multiple ulceration with surrounding erythema on both lower extremities, right more than left Skin: See lower extremity Neurological: Grossly intact Psych/Mental Status: Appropriate Assessment & Plan Assessment/Plan (1) Acute kidney injury superimposed on chronic kidney disease: (2) Acute respiratory failure with hypercapnia: PLAN: Plan 1. MARIANA on CKD stage III, status post dialysis on 08/17/22 via right IJ tunneled catheter Creatinine today is 3.37 from 4.20 on admission Urine output is nonoliguric Nephrology following, has had 2 days of dialysis; no dialysis planned. 2. Hyperkalemia, secondary to #1, resolved with dialysis 3. Acute combined respiratory failure secondary to right upper lobe pneumonia, probable aspiration pneumonia versus COPD exacerbation, appears improved, currently on 2 L of oxygen Continue BiPAP, IV Zosyn, prednisone 4. Acute right upper lobe pneumonia, suspected aspiration pneumonia Continue IV Zosyn, speech therapy consulted 5. Acute metabolic encephalopathy secondary to #3 and 4, resolved 6. Type II DM, complicated by peripheral neuropathy blood sugars are elevated, Home insulin regimen, gabapentin and cymbalta on hold Continue with med-high dose insulin sliding scale with blood glucose checks 7. Hypertension/hyperlipidemia, blood pressures are slightly uncontrolled, resumed on metoprolol Continue to hold home lisinopril, spironolactone on hold Continue to monitor 8. Rheumatoid arthritis, continue to hold leflunomide 9. DVT prophylaxis?on Lovenox subcu Charges/Coding Visit Charges Inpatient E&M: 76862 [facility] Hosp L3
[2022-08-19 17:41] LABS: Bedside Glucose 354 mg/dL (74-106)
[2022-08-19] MEDS: Insulin Glargine-YFGN 100 UNIT/ML Pen 19 UNIT SC (23:04)
[2022-08-19] MEDS: Pramipexole Di-HCl 0.5 MG Tablet PO (23:06)
[2022-08-20] VITALS (13 sets, daily range): BP systolic 135–158; BP diastolic 58–86; PULSE 73–122; RESP 16–20; TEMP 36.7–36.9; O2SAT 92–95
[2022-08-20 00:51] LABS: Bedside Glucose 263 mg/dL (74-106)
[2022-08-20 04:14] LABS: Absolute Lymphocyte Count 1.19 X10^3/uL (0.83-4.51); Absolute Neutrophil Count 9.7 X10^3/uL (2.0-7.7); Basophil# 0.02 X10^3/uL; Basophil% 0.2 % (0-1); Hematocrit 26.1 % (37-47); Hemoglobin 8.6 g/dL (12.0-15.0); Lymphocyte # 1.19 X10^3/ul (0.83-4.51); Lymphocyte % 9.6 % (19-41); Mean Corpuscular Hgb 27.9 pg (27.0-32.0); Mean Corpuscular Volume 84.7 fL (81-99); Mean Platelet Vol. 9.1 fl (6.2-12.0); Monocyte# 1.27 X10^3/uL; Monocyte% 10.2 % (0-10); NRBC Flagged by Analyzer 0 % (0-5); Neutrophil # 9.74 X10^3/uL (2.7-7.7); Neutrophil % 78.2 % (47-70); Platelet Count 237 K/mm3 (150-450); RBC Distribution Width CV 14.2 % (11.6-14.6); Red Blood Count 3.08 M/mm3 (4.2-5.4); White Blood Count 12.5 K/mm3 (4.4-11.0)
[2022-08-20 05:06] LABS: AST(SGOT) 5 U/L (15-37); Alanine Aminotransfer ALT/SGPT 17 U/L (13-56); Albumin, Serum 2.4 g/dL (3.2-5.0); Alkaline Phosphatase 79 U/L (45-117); BUN 56 mg/dL (7-18); BUN/Creat Ratio 12.3 RATIO (10-20); Bilirubin, Direct 0.14 mg/dL (0.00-0.30); Calcium,Total 7.7 mg/dL (8.5-10.1); Chloride 100 mmol/L (98-107); Creatinine, Serum 4.55 mg/dL (0.55-1.02); EST Glomerular Filtration Rate 10 mL/min (>60); Est Glom Filt Rate - Afr Amer 13 mL/min (>60); Estimated Creatinine Clearance 10.14 ml/min; Globulin 3.4 g/dL (2.2-4.2); Glucose 215 mg/dL (74-106); Phosphorus 4.7 mg/dL (2.5-4.9); Potassium 4.2 mmol/L (3.5-5.1); Protein, Total 5.8 g/dL (6.4-8.2); Sodium Level 134 mmol/L (136-145)
[2022-08-20] MEDS: Insulin Lispro 100 UNIT/ML INSULN.PEN SC ×4 (06:40→22:19)
[2022-08-20 07:10] LABS: Bedside Glucose 190 mg/dL (74-106)
[2022-08-20] MEDS: Ipratropium/Albuterol Sulfate 3 ML AMPUL.NEB INHALATION ×3 (07:24→19:34)
[2022-08-20] MEDS: Metoprolol(XL)Succ 25 MG Tablet PO (09:03)
[2022-08-20] MEDS: predniSONE 20 MG Tablet 40 MG PO (09:04)
--- NOTE | 2022-08-20 11:01 | PN.RENAL_ITS ---
Subjective Subjective Following for dialysis requiring MARIANA Sitting in chair. No overnight events. Patient reports appetite is poor. Den ies any nausea, vomiting or diarrhea Objective Data Objective Data Vital Signs: Vital Signs Temp Pulse Resp BP Pulse Ox O2 Del Method O2 Flow Rate 98.1 F 105 H 18 135/58 H 95 Room Air 2 08/20/22 09:15 08/20/22 09:15 08/20/22 09:15 08/20/22 09:15 08/20/22 09:15 08/20/22 09:15 08/19/22 07:35 FiO2 94 08/18/22 04:00 Oxygen Flow Rate (L/min) 2 Oxygen Delivery Method Room Air Weight: 92.4 kg Body Mass Index (BMI) 34.4 Intake & Output: Intake and Output for Last 24 Hours 08/18/22 08/19/22 08/20/22 23:59 23:59 23:59 Intake Total 400.25 / 400.25 349.75 / 349.75 50 / 50 Output Total 695 / 695 1150 / 1150 500 / 500 Balance -294.75 / -294.75 -800.25 / -800.25 -450 / -450 Lab / Micro Data Result Diagrams: 08/20/22 03:51 08/20/22 03:51 Labs: Laboratory Results - last 24 hr 08/19/22 11:27: POC Glucose 365 H 08/19/22 17:04: POC Glucose 354 H 08/19/22 23:01: POC Glucose 263 H 08/20/22 03:51: WBC 12.5 H, RBC 3.08 L, Hgb 8.6 L, Hct 26.1 L, MCV 84.7, MCH 27.9, MCHC 33.0, RDW Std Deviation 44.0 H, RDW Coeff of Mat 14.2, Plt Count 237, MPV 9.1, Immature Gran % (Auto) 1.800 H, Neut % (Auto) 78.2 H, Lymph % (Auto) 9.6 L, [place] % (Auto) 10.2 H, Eos % (Auto) 0.0, Baso % (Auto) 0.2, Absolute Neuts (auto) 9.7 H, Absolute Lymphs (auto) 1.19, Nucleated RBC % 0 08/20/22 03:51: Sodium 134 L, Potassium 4.2, Chloride 100, Carbon Dioxide 26.0, BUN 56 H, Creatinine 4.55 H, Estim Creat Clear Calc 10.14, Est GFR (MDRD) Af Amer 13 L, Est GFR (MDRD) Non-Af 10 L, BUN/Creatinine Ratio 12.3, Glucose 215 H, Calcium 7.7 L, Phosphorus 4.7, Total Bilirubin 0.40, Direct Bilirubin 0.14, AST 5 L, ALT 17, Alkaline Phosphatase 79, Total Protein 5.8 L, Albumin 2.4 L, Globulin 3.4 08/20/22 06:37: POC Glucose 190 H Micro: Microbiology 08/16/22 19:00 Urine, Clean Catch Urine Culture - Final Aerococcus urinae 08/16/22 14:15 Blood Culture (Wb) #2 - Anticubital Right Blood Culture - Preliminary No growth in 48 hours. 08/16/22 14:25 Blood Culture (Wb) - Left Forearm Blood Culture - Preliminary No growth in 48 hours. 08/16/22 19:00 Urine Catheter - Barcenas Legionella Antigen - Final 08/16/22 19:00 Urine Catheter - Barcenas Streptococcus pneumoniae Antigen (M - Final Streptococcus pneumonia Ag 08/16/22 13:25 Nasal Secretion SARS-CoV-2 & FLU Antigen (Rapid) - Final Physical Exam Narrative Alert and oriented x3. No apparent distress. Sitting in chair. s1s2 no murmurs Diminished breath sounds posterior bases, no rhonchi or rales abdomen soft no organomegaly 1+ pitting edema b/l LE barcenas + Right IJ non-tunneled temporary HD catheter dressing clean, dry and intact Assessment & Plan Assessment/Plan (1) Acute kidney injury superimposed on chronic kidney disease: PLAN: MARIANA likely from ATN from sepsis. Initially oliguric. Baseline SCr 1.5mg/dL. Due to hyperkalemia, worsening kidney function and little urine output patient underwent first hemodialysis 08/17 (SCr peaked 4.2mg/dL). Patient had dialysis again 08/18 with around 1 L fluid removed. Serum creatinine is 4.55 today. Potassium and acid-base acceptable. 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 We will evaluate for dialysis needs tomorrow. If serum creatinine up again tomorrow likely will plan for dialysis via temporary HD catheter, monitor renal function over weekend, and if still no noted renal recovery then patient will need tunneled HD catheter placed with outpatient dialysis arrangements. Patient voiced understanding, questions answered, patient in agreement with plan. Will continue to monitor for renal recovery. Urine output is picking up Renal ultrasound no hydronephrosis, normal ultrasound of kidneys and urinary bladder. Ur cx Streptococcus pneumonia, blood cultures so far no growth. Antibiotics, Zosyn. Spironolactone, torsemide, potassium chloride, lisinopril on hold. Blood pressures improved on metoprolol succinate 25 mg daily Labs ordered for the morning D/W Dr. Huynh (2) Hyperkalemia:
[2022-08-20 11:40] LABS: Bedside Glucose 306 mg/dL (74-106)
--- NOTE | 2022-08-20 11:55 | PN.HOSP_ITS ---
Subjective Subjective Follow-up on patient's plan Patient was seen and examined.?No new complaints. Denies any chest pain or shortness of breath. Urine output is still good Objective Data Objective Data Vital Signs: Vital Signs Temp Pulse Resp BP Pulse Ox O2 Del Method O2 Flow Rate 98.1 F 105 H 18 135/58 H 95 Room Air 2 08/20/22 09:15 08/20/22 09:15 08/20/22 09:15 08/20/22 09:15 08/20/22 09:15 08/20/22 09:15 08/19/22 07:35 FiO2 94 08/18/22 04:00 Oxygen Flow Rate (L/min) 2 Oxygen Delivery Method Room Air Weight: 92.4 kg Body Mass Index (BMI) 34.4 Intake & Output: Intake and Output for Last 24 Hours 08/18/22 08/19/22 08/20/22 23:59 23:59 23:59 Intake Total 400.25 / 400.25 349.75 / 349.75 50 / 50 Output Total 695 / 695 1150 / 1150 500 / 500 Balance -294.75 / -294.75 -800.25 / -800.25 -450 / -450 Lab / Micro Data Result Diagrams: 08/20/22 03:51 08/20/22 03:51 Labs: Laboratory Results - last 24 hr 08/19/22 17:04: POC Glucose 354 H 08/19/22 23:01: POC Glucose 263 H 08/20/22 03:51: WBC 12.5 H, RBC 3.08 L, Hgb 8.6 L, Hct 26.1 L, MCV 84.7, MCH 27.9, MCHC 33.0, RDW Std Deviation 44.0 H, RDW Coeff of Mat 14.2, Plt Count 237, MPV 9.1, Immature Gran % (Auto) 1.800 H, Neut % (Auto) 78.2 H, Lymph % (Auto) 9 .6 L, [place] % (Auto) 10.2 H, Eos % (Auto) 0.0, Baso % (Auto) 0.2, Absolute Neuts (auto) 9.7 H, Absolute Lymphs (auto) 1.19, Nucleated RBC % 0 08/20/22 03:51: Sodium 134 L, Potassium 4.2, Chloride 100, Carbon Dioxide 26.0, BUN 56 H, Creatinine 4.55 H, Estim Creat Clear Calc 10.14, Est GFR (MDRD) Af Amer 13 L, Est GFR (MDRD) Non-Af 10 L, BUN/Creatinine Ratio 12.3, Glucose 215 H, Calcium 7.7 L, Phosphorus 4.7, Total Bilirubin 0.40, Direct Bilirubin 0.14, AST 5 L, ALT 17, Alkaline Phosphatase 79, Total Protein 5.8 L, Albumin 2.4 L, Globulin 3.4 08/20/22 06:37: POC Glucose 190 H 08/20/22 10:56: POC Glucose 306 H Micro: Microbiology 08/16/22 19:00 Urine, Clean Catch Urine Culture - Final Aerococcus urinae 08/16/22 14:15 Blood Culture (Wb) #2 - Anticubital Right Blood Culture - Preliminary No growth in 48 hours. 08/16/22 14:25 Blood Culture (Wb) - Left Forearm Blood Culture - Preliminary No growth in 48 hours. 08/16/22 19:00 Urine Catheter - Gaffney Legionella Antigen - Final 08/16/22 19:00 Urine Catheter - Gaffney Streptococcus pneumoniae Antigen (M - Final Streptococcus pneumonia Ag 08/16/22 13:25 Nasal Secretion SARS-CoV-2 & FLU Antigen (Rapid) - Final Physical Exam Narrative Physical exam: General: Alert, Oriented x3, Cooperative, HEENT: Atraumatic Oral: Moist Mucosa Neck: Supple Lungs: Diminished to auscultation Cardiovascular: HS I+II, regular, right IJ dialysis catheter Abdomen: Bowel Sounds Present, Soft, Non Tender, Gaffney catheter in situ Extremities: Bilateral leg edema, trace with multiple ulceration with surrounding erythema on both lower extremities, right more than left Skin: See lower extremity Neurological: Grossly intact Psych/Mental Status: Appropriate Assessment & Plan Assessment/Plan (1) Acute kidney injury superimposed on chronic kidney disease: (2) Acute respiratory failure with hypercapnia: PLAN: Plan 1. MARIANA on CKD stage III, status post dialysis on 08/17/22 via right IJ tunneled catheter Creatinine today is 4.55 from 3.37 on admission Urine output is non-oliguric Nephrology following; has had 2 days of dialysis; no dialysis planned. 2. Hyperkalemia, secondary to #1, resolved with dialysis 3. Acute combined respiratory failure secondary to right upper lobe strepto coccus pneumoniae pneumonia, probable aspiration pneumonia versus COPD exacerbation Currently on 2 L of oxygen Continue BiPAP, prednisone, Augmentin 4. Acute right Streptococcus pneumonia upper lobe pneumonia, suspected aspiration pneumonia Will switch from IV Zosyn to Augmentin 500 mg BID 5. Acute metabolic encephalopathy secondary to #3 and 4, resolved 6. Type II DM, complicated by peripheral neuropathy blood sugars are elevated, Home insulin regimen, gabapentin and cymbalta on hold Continue with med-high dose insulin sliding scale with blood glucose checks Will check Hgba1c 7. Hypertension/hyperlipidemia, blood pressures are slightly uncontrolled, resumed on metoprolol Continue to hold home lisinopril, spironolactone on hold Continue to monitor 8. Rheumatoid arthritis, continue to hold leflunomide 9. DVT prophylaxis?on Lovenox subcu Charges/Coding Visit Charges Inpatient E&M: 11944 Subs Hosp L3
--- NOTE | 2022-08-20 14:00 | CASEMGMT ---
PARIS TREVIÑO NOTE: To pt's room to discuss discharge planning. Also reviewed therapy notes and additional therapy recommended. Pt sitting up in chair in room. Pt states would like HHC @ discharge, denies having a preference of HHC agency, and declines wanting a list of HHC choices. Pt also states, should she need new OP HD set up, she states prefers [facility]. Collette ADHIKARI RN, CM
[2022-08-20] MEDS: 0.9% Saline Lock 10 ML Syringe IV (16:45)
[2022-08-20 17:03] LABS: Hemoglobin A1c 6.8 % (3.8-5.6)
[2022-08-20 17:50] LABS: Bedside Glucose 366 mg/dL (74-106)
[2022-08-20] MEDS: Amox/Clavulanate 500 MG Tablet PO (17:56)
[2022-08-20] MEDS: Pramipexole Di-HCl 0.5 MG Tablet PO (22:18)
[2022-08-20] MEDS: Insulin Glargine-YFGN 100 UNIT/ML Pen 19 UNIT SC (22:19)
[2022-08-20 22:55] LABS: Bedside Glucose 339 mg/dL (74-106)
[2022-08-21] VITALS (16 sets, daily range): BP systolic 129–158; BP diastolic 63–77; PULSE 80–92; RESP 16–20; TEMP 36.4–37.2; O2SAT 91–94
[2022-08-21] MEDS: Ipratropium/Albuterol Sulfate 3 ML AMPUL.NEB INHALATION ×4 (01:30→19:30)
[2022-08-21] MEDS: Acetaminophen 325 MG Tablet 650 MG PO ×2 (02:11→22:53)
[2022-08-21 06:04] LABS: Absolute Lymphocyte Count 1.62 X10^3/uL (0.83-4.51); Absolute Neutrophil Count 10.5 X10^3/uL (2.0-7.7); Basophil# 0.02 X10^3/uL; Basophil% 0.1 % (0-1); Eosinophil# 0.02 X10^3/uL; Eosinophils% 0.1 % (0-5); Hematocrit 29.3 % (37-47); Hemoglobin 9.3 g/dL (12.0-15.0); Lymphocyte # 1.62 X10^3/ul (0.83-4.51); Lymphocyte % 11.9 % (19-41); Mean Corp Hgb Conc 31.7 g/dL (32-36); Mean Corpuscular Hgb 26.8 pg (27.0-32.0); Mean Corpuscular Volume 84.4 fL (81-99); Mean Platelet Vol. 8.7 fl (6.2-12.0); Monocyte# 1.17 X10^3/uL; Monocyte% 8.6 % (0-10); NRBC Flagged by Analyzer 0 % (0-5); Neutrophil # 10.46 X10^3/uL (2.7-7.7); Neutrophil % 76.8 % (47-70); Platelet Count 258 K/mm3 (150-450); RBC Distribution Width CV 13.9 % (11.6-14.6); RBC Distribution Width SD 43.3 fl (35.1-43.9); Red Blood Count 3.47 M/mm3 (4.2-5.4); White Blood Count 13.6 K/mm3 (4.4-11.0)
[2022-08-21 06:34] LABS: AST(SGOT) 12 U/L (15-37); Alanine Aminotransfer ALT/SGPT 20 U/L (13-56); Albumin, Serum 2.6 g/dL (3.2-5.0); Alkaline Phosphatase 77 U/L (45-117); BUN 64 mg/dL (7-18); Bilirubin, Direct 0.16 mg/dL (0.00-0.30); Calcium,Total 8.3 mg/dL (8.5-10.1); Chloride 99 mmol/L (98-107); Creatinine, Serum 5.35 mg/dL (0.55-1.02); EST Glomerular Filtration Rate 9 mL/min (>60); Est Glom Filt Rate - Afr Amer 10 mL/min (>60); Estimated Creatinine Clearance 8.62 ml/min; Globulin 3.7 g/dL (2.2-4.2); Glucose 142 mg/dL (74-106); Phosphorus 5.6 mg/dL (2.5-4.9); Potassium 4.5 mmol/L (3.5-5.1); Protein, Total 6.3 g/dL (6.4-8.2); Sodium Level 136 mmol/L (136-145)
[2022-08-21 07:01] LABS: Bedside Glucose 132 mg/dL (74-106)
[2022-08-21] MEDS: Enoxaparin 30 MG/0.3 ML Syringe SC (09:02)
--- NOTE | 2022-08-21 11:13 | PN.HOSP_ITS ---
Subjective Subjective Follow-up on MARIANA/acute metabolic encephalopathy: Patient was seen and examined.?Denies any chest pain or shortness of breath. Patient had dialysis today. He complains of slight abdominal discomfort. Objective Data Objective Data Vital Signs: Vital Signs Temp Pulse Resp BP Pulse Ox O2 Del Method O2 Flow Rate 97.5 F L 92 20 H 129/69 H 94 Room Air 2 08/21/22 08:54 08/21/22 09:00 08/21/22 09:00 08/21/22 09:00 08/21/22 08:54 08/21/22 10:26 08/19/22 07:35 FiO2 94 08/18/22 04:00 Oxygen Flow Rate (L/min) 2 Oxygen Delivery Method Room Air Weight: 92.2 kg Body Mass Index (BMI) 34.4 Intake & Output: Intake and Output for Last 24 Hours 08/19/22 08/20/22 08/21/22 23:59 23:59 23:59 Intake Total 349.75 / 349.75 680 / 680 Output Total 1150 / 1150 1700 / 1700 575 / 575 Balance -800.25 / -800.25 -1020 / -1020 -575 / -575 Lab / Micro Data Result Diagrams: 08/21/22 05:50 08/21/22 05:50 Labs: Laboratory Results - last 24 hr 08/20/22 03:51: Hemoglobin A1c 6.8 H 08/20/22 10:56: POC Glucose 306 H 08/20/22 16:37: POC Glucose 366 H 08/20/22 22:17: POC Glucose 339 H 08/21/22 05:50: WBC 13.6 H, RBC 3.47 L, Hgb 9.3 L, Hct 29.3 L, MCV 84.4, MCH 26.8 L, MCHC 31.7 L, RDW Std Deviation 43.3, RDW Coeff of Mat 13.9, Plt Count 258, MPV 8.7, Immature Gran % (Auto) 2.500 H, Neut % (Auto) 76.8 H, Lymph % (Auto) 11.9 L, [place] % (Auto) 8.6, Eos % (Auto) 0.1, Baso % (Auto) 0.1, Absolute Neuts (auto) 10.5 H, Absolute Lymphs (auto) 1.62, Nucleated RBC % 0 08/21/22 05:50: Sodium 136, Potassium 4.5, Chloride 99, Carbon Dioxide 26.0, BUN 64 H, Creatinine 5.35 H, Estim Creat Clear Calc 8.62, Est GFR (MDRD) Af Amer 10 L, Est GFR (MDRD) Non-Af 9 L, BUN/Creatinine Ratio 12.0, Glucose 142 H, Calcium 8.3 L, Phosphorus 5.6 H, Total Bilirubin 0.50, Direct Bilirubin 0.16, AST 12 L, ALT 20, Alkaline Phosphatase 77, Total Protein 6.3 L, Albumin 2.6 L, Globulin 3.7 08/21/22 06:23: POC Glucose 132 H Micro: Microbiology 08/16/22 19:00 Urine, Clean Catch Urine Culture - Final Aerococcus urinae 08/16/22 14:15 Blood Culture (Wb) #2 - Anticubital Right Blood Culture - Preliminary No growth in 48 hours. 08/16/22 14:25 Blood Culture (Wb) - Left Forearm Blood Culture - Preliminary No growth in 48 hours. 08/16/22 19:00 Urine Catheter - Gaffney Legionella Antigen - Final 08/16/22 19:00 Urine Catheter - Gaffney Streptococcus pneumoniae Antigen (M - Final Streptococcus pneumonia Ag 08/16/22 13:25 Nasal Secretion SARS-CoV-2 & FLU Antigen (Rapid) - Final Physical Exam Narrative Physical exam: General: Alert, Oriented x3, Cooperative, HEENT: Atraumatic Oral: Moist Mucosa Neck: Supple Lungs: Diminished to auscultation Cardiovascular: HS I+II, regular, right IJ dialysis catheter Abdomen: Bowel Sounds Present, Soft, Non Tender, Gaffney catheter in situ Extremities: Bilateral leg edema, trace with multiple ulceration with surrounding erythema on both lower extremities, right more than left Skin: See lower extremity Neurological: Grossly intact Psych/Mental Status: Appropriate Assessment & Plan Assessment/Plan (1) Acute kidney injury superimposed on chronic kidney disease: (2) Acute respiratory failure with hypercapnia: PLAN: Plan 1. MARIANA on CKD stage III, status post dialysis on 08/17/22 via right IJ tunneled catheter Creatinine today is 5.35 from 3.37 on admission Urine output is non-oliguric Nephrology following; patient had 3rd dialysis today 2. Hyperkalemia, secondary to #1, resolved with dialysis 3. Acute combined respiratory failure secondary to right upper lobe streptoc occus pneumoniae pneumonia, probable aspiration pneumonia versus COPD exacerbation, off oxygen Continue BiPAP, prednisone, Augmentin (will aim for total of 7 days antibiotic) 4. Acute right Streptococcus pneumonia upper lobe pneumonia, suspected aspiration pneumonia Continue on Augmentin 500 mg BID 5. Acute metabolic encephalopathy secondary to #3 and 4, resolved 6. Type II DM, complicated by peripheral neuropathy blood sugars are elevated, HbA1c is 6.8 Home insulin regimen, gabapentin and cymbalta on hold Continue with med-high dose insulin sliding scale with blood glucose checks 7. Hypertension/hyperlipidemia, blood pressures are slightly uncontrolled, resumed on metoprolol Continue to hold home lisinopril, spironolactone on hold Continue to monitor 8. Rheumatoid arthritis, continue to hold leflunomide 9. DVT prophylaxis?on Lovenox subcu Charges/Coding Visit Charges Inpatient E&M: 26424 Subs Hosp L2
--- NOTE | 2022-08-21 11:24 | CASEMGMT ---
PARIS TREVIÑO NOTE: Call placed to [facility] and referral made for pt for SN and PT/OT. She was made aware anticipate pt will not be ready to discharge until early next week. She requests referral be faxed to her and she will review before making decision re: acceptance. Referal faxed at this time. Collette ADHIKARI RN CM
[2022-08-21 12:05] LABS: Bedside Glucose 141 mg/dL (74-106)
--- NOTE | 2022-08-21 12:26 | DIALYSIS ---
08/21/22 12:30: hemodialysis x 3.5 hours, net UF 1500 ml. HD catheter very positional - required multiple repositions, line flushes, and low BFR to maintain more or less consistent dialysis treatment. Dr. Baez aware. Patient VSS, no complaints. Blood returned to patient at end of treatment. HD catheter ports closed with heparin. RN report at bedside.
[2022-08-21] MEDS: Metoprolol(XL)Succ 25 MG Tablet PO (12:35)
[2022-08-21] MEDS: Amox/Clavulanate 500 MG Tablet PO ×2 (12:36→16:46)
[2022-08-21] MEDS: predniSONE 20 MG Tablet 40 MG PO (12:36)
[2022-08-21] MEDS: Heparin 10,000 UNITS/10 ML Vial 2600 UNITS IV (12:38)
--- NOTE | 2022-08-21 13:07 | CASEMGMT ---
PARIS TREVIÑO: HD referral submitted via the [facility] web portal with request for MWF schedule and potential start date of 08/25/22. Will continue to follow for acceptance/confirmation and chair time/HD schedule. Mag Cordero RN CM
--- NOTE | 2022-08-21 13:17 | PN.RENAL_ITS ---
Subjective Subjective No new complaints. Creatinine is higher. Objective Data Objective Data Vital Signs: Vital Signs Temp Pulse Resp BP Pulse Ox O2 Del Method O2 Flow Rate 97.5 F L 80 16 143/75 H 91 Room Air 2 08/21/22 08:54 08/21/22 12:35 08/21/22 12:20 08/21/22 12:20 08/21/22 13:14 08/21/22 13:14 08/19/22 07:35 FiO2 94 08/18/22 04:00 Oxygen Flow Rate (L/min) 2 Oxygen Delivery Method Room Air Weight: 92.2 kg Body Mass Index (BMI) 34.4 Intake & Output: Intake and Output for Last 24 Hours 08/19/22 08/20/22 08/21/22 23:59 23:59 23:59 Intake Total 349.75 / 349.75 680 / 680 100 / 100 Output Total 1150 / 1150 1700 / 1700 725 / 725 Balance -800.25 / -800.25 -1020 / -1020 -625 / -625 Lab / Micro Data Result Diagrams: 08/21/22 05:50 08/21/22 05:50 Labs: Laboratory Results - last 24 hr 08/20/22 03:51: Hemoglobin A1c 6.8 H 08/20/22 16:37: POC Glucose 366 H 08/20/22 22:17: POC Glucose 339 H 08/21/22 05:50: WBC 13.6 H, RBC 3.47 L, Hgb 9.3 L, Hct 29.3 L, MCV 84.4, MCH 26.8 L, MCHC 31.7 L, RDW Std Deviation 43.3, RDW Coeff of Mat 13.9, Plt Count 258, MPV 8.7, Immature Gran % (Auto) 2.500 H, Neut % (Auto) 76.8 H, Lymph % (Auto) 11.9 L, [place] % (Auto) 8.6, Eos % (Auto) 0.1, Baso % (Auto) 0.1, Absolute Neuts (auto) 10.5 H, Absolute Lymphs (auto) 1.62, Nucleated RBC % 0 08/21/22 05:50: Sodium 136, Potassium 4.5, Chloride 99, Carbon Dioxide 26.0, BUN 64 H, Creatinine 5.35 H, Estim Creat Clear Calc 8.62, Est GFR (MDRD) Af Amer 10 L, Est GFR (MDRD) Non-Af 9 L, BUN/Creatinine Ratio 12.0, Glucose 142 H, Calcium 8.3 L, Phosphorus 5.6 H, Total Bilirubin 0.50, Direct Bilirubin 0.16, AST 12 L, ALT 20, Alkaline Phosphatase 77, Total Protein 6.3 L, Albumin 2.6 L, Globulin 3.7 08/21/22 06:23: POC Glucose 132 H 08/21/22 11:40: POC Glucose 141 H Micro: Microbiology 08/16/22 19:00 Urine, Clean Catch Urine Culture - Final Aerococcus urinae 08/16/22 14:15 Blood Culture (Wb) #2 - Anticubital Right Blood Culture - Preliminary No growth in 48 hours. 08/16/22 14:25 Blood Culture (Wb) - Left Forearm Blood Culture - Preliminary No growth in 48 hours. 08/16/22 19:00 Urine Catheter - Barcenas Legionella Antigen - Final 08/16/22 19:00 Urine Catheter - Barcenas Streptococcus pneumoniae Antigen (M - Final Streptococcus pneumonia Ag 08/16/22 13:25 Nasal Secretion SARS-CoV-2 & FLU Antigen (Rapid) - Final Physical Exam Narrative Alert and oriented x3. No apparent distress. Sitting in chair. s1s2 no murmurs Diminished breath sounds posterior bases, no rhonchi or rales abdomen soft no organomegaly 1+ pitting edema b/l LE barcenas + Right IJ non-tunneled temporary HD catheter dressing clean, dry and intact Assessment & Plan Assessment/Plan (1) Acute kidney injury superimposed on chronic kidney disease: PLAN: MARIANA likely from ATN from sepsis. Initially oliguric. Baseline SCr 1.5mg/dL as of 2 months ago Due to hyperkalemia, worsening kidney function and little urine output patient underwent first hemodialysis 08/17 (SCr peaked 4.2mg/dL). Patient had dialysis again 08/18 with around 1 L fluid removed. Ur cx Streptococcus pneumonia, blood cultures so far no growth. Spironolactone, torsemide, potassium chloride, lisinopril on hold. Blood pressures ok Urine output is improved, creatinine continues to worsen. Seen on dialysis today. Still has a right IJ temporary dialysis catheter. Since she is better clinically, hopefully she will recover. Plan is to watch her over the weekend without dialysis. If creatinine improves, we will discharge her without dialysis. If creatinine still is high, she will need a tunneled line on Wednesday and discharged with dialysis Discussed with case management. I would start process for dialysis unit placement since it is the holiday weekend (2) Hyperkalemia:
[2022-08-21] MEDS: Insulin Lispro 100 UNIT/ML INSULN.PEN SC ×2 (16:46→21:03)
[2022-08-21 17:11] LABS: Bedside Glucose 324 mg/dL (74-106)
[2022-08-21] MEDS: Pramipexole Di-HCl 0.5 MG Tablet PO (20:50)
[2022-08-21] MEDS: Insulin Glargine-YFGN 100 UNIT/ML Pen 19 UNIT SC (21:16)
--- NOTE | 2022-08-21 23:49 | VDLE_ITS ---
Reason For Study: LEG SWELLING RIGHT LEFT GSV is normal. CFV is compressible, spontaneous, phasic, CFV is compressible, spontaneous, phasic, competent, and demonstrates normal competent and demonstrates normal augmentation. augmentation. FV is compressible, spontaneous, phasic, competent and demonstrates normal augmentation. POP V is compressible, spontaneous, phasic, competent and demonstrates normal augmentation. T/P Trunk is compressible. PTV is compressible. RT PerV is compressible. Procedure This is a venous duplex using B-mode, color flow and spectral Doppler. Exam performed portable in patient room. The exam was diagnostic. A preliminary report was called and/or faxed to BHARATH Kendrick glass forming crew member. VL/Venous Duplex US, Unilateral Interpretation Summary There is no evidence of right lower extremity deep vein thrombosis. Right great saphenous vein appears patent and compressible segmentally. Normal flow patterns left common f emoral vein Ordering Physician: Kal Mcdaniel Referring Physician: Eliezer Armando Performed By: Drkae Soto RVT
--- NOTE | 2022-08-21 23:50 | CPS ---
Bipap not set up in room.
[2022-08-21 23:55] LABS: Bedside Glucose 304 mg/dL (74-106)
[2022-08-22] VITALS (15 sets, daily range): BP systolic 132–153; BP diastolic 66–81; PULSE 80–90; RESP 16–22; TEMP 36.5–37; O2SAT 90–96
--- NOTE | 2022-08-22 03:32 | NURSING ---
Addendum entered by Tracie Landin 08/22/22 04:53: Pt was 90% on room air. discussed with pt history of sleep apnea. pt states she is supposed to wear a cpap at night at home. Placed on o2 2l pulse ox improved. discussed importance of wearing cpap or atleast discussing not wearing it with her physician since her o2 is low while sleeping without it. Original Note: pt was 90% on room air
[2022-08-22 07:07] LABS: Absolute Lymphocyte Count 1.43 X10^3/uL (0.83-4.51); Absolute Neutrophil Count 9.6 X10^3/uL (2.0-7.7); Basophil# 0.01 X10^3/uL; Basophil% 0.1 % (0-1); Eosinophil# 0.02 X10^3/uL; Eosinophils% 0.2 % (0-5); Hematocrit 29.7 % (37-47); Hemoglobin 9.2 g/dL (12.0-15.0); Lymphocyte # 1.43 X10^3/ul (0.83-4.51); Lymphocyte % 11.7 % (19-41); Mean Corpuscular Hgb 26.5 pg (27.0-32.0); Mean Corpuscular Volume 85.6 fL (81-99); Mean Platelet Vol. 9.3 fl (6.2-12.0); Monocyte# 0.79 X10^3/uL; Monocyte% 6.5 % (0-10); NRBC Flagged by Analyzer 0 % (0-5); Neutrophil # 9.64 X10^3/uL (2.7-7.7); Platelet Count 258 K/mm3 (150-450); RBC Distribution Width CV 13.9 % (11.6-14.6); RBC Distribution Width SD 42.9 fl (35.1-43.9); Red Blood Count 3.47 M/mm3 (4.2-5.4); White Blood Count 12.2 K/mm3 (4.4-11.0)
[2022-08-22 07:15] LABS: Bedside Glucose 146 mg/dL (74-106)
[2022-08-22 07:35] LABS: AST(SGOT) 12 U/L (15-37); Alanine Aminotransfer ALT/SGPT 22 U/L (13-56); Albumin, Serum 2.5 g/dL (3.2-5.0); Alkaline Phosphatase 74 U/L (45-117); BUN 41 mg/dL (7-18); BUN/Creat Ratio 10.4 RATIO (10-20); Bilirubin, Direct 0.15 mg/dL (0.00-0.30); Calcium,Total 8.1 mg/dL (8.5-10.1); Chloride 102 mmol/L (98-107); Creatinine, Serum 3.96 mg/dL (0.55-1.02); EST Glomerular Filtration Rate 12 mL/min (>60); Est Glom Filt Rate - Afr Amer 15 mL/min (>60); Estimated Creatinine Clearance 11.65 ml/min; Globulin 3.5 g/dL (2.2-4.2); Glucose 151 mg/dL (74-106); Phosphorus 4.9 mg/dL (2.5-4.9); Potassium 4.4 mmol/L (3.5-5.1); Sodium Level 138 mmol/L (136-145)
[2022-08-22] MEDS: Ipratropium/Albuterol Sulfate 3 ML AMPUL.NEB INHALATION ×3 (07:46→19:27)
[2022-08-22] MEDS: Metoprolol(XL)Succ 25 MG Tablet PO (09:37)
[2022-08-22] MEDS: Amox/Clavulanate 500 MG Tablet PO ×2 (09:37→16:30)
[2022-08-22] MEDS: Enoxaparin 30 MG/0.3 ML Syringe SC (09:37)
[2022-08-22] MEDS: predniSONE 20 MG Tablet 40 MG PO (09:37)
--- NOTE | 2022-08-22 10:44 | PN.RENAL_ITS ---
Subjective Subjective Follow-up acute kidney injury requiring dialysis. She was dialyzed yesterday. She feels much better today, edema is down. No respiratory compromise Objective Data Objective Data Vital Signs: Vital Signs Temp Pulse Resp BP Pulse Ox O2 Del Method O2 Flow Rate 97.7 F L 88 16 133/66 H 94 Room Air 2 08/22/22 09:32 08/22/22 09:37 08/22/22 09:32 08/22/22 09:37 08/22/22 09:35 08/22/22 09:35 08/22/22 07:46 FiO2 94 08/18/22 04:00 Oxygen Flow Rate (L/min) 2 Oxygen Delivery Method Room Air Weight: 91.4 kg Body Mass Index (BMI) 34.4 Intake & Output: Intake and Output for Last 24 Hours 08/20/22 08/21/22 08/22/22 23:59 23:59 23:59 Intake Total 680 / 680 490 / 490 240 / 240 Output Total 1700 / 1700 875 / 875 Balance -1020 / -1020 -385 / -385 240 / 240 Lab / Micro Data Attestation: I reviewed the patient's lab results. Result Diagrams: 08/22/22 06:25 08/22/22 06:25 Labs: Laboratory Results - last 24 hr 08/21/22 11:40: POC Glucose 141 H 08/21/22 16:42: POC Glucose 324 H 08/21/22 21:02: POC Glucose 304 H 08/22/22 06:25: WBC 12.2 H, RBC 3.47 L, Hgb 9.2 L, Hct 29.7 L, MCV 85.6, MCH 26.5 L, MCHC 31.0 L, RDW Std Deviation 42.9, RDW Coeff of Mat 13.9, Plt Count 258, MPV 9.3, Immature Gran % (Auto) 2.500 H, Neut % (Auto) 79.0 H, Lymph % (Auto) 11.7 L, [place] % (Auto) 6.5, Eos % (Auto) 0.2, Baso % (Auto) 0.1, Absolute Neuts (auto) 9.6 H, Absolute Lymphs (auto) 1.43, Nucleated RBC % 0 08/22/22 06:25: Sodium 138, Potassium 4.4, Chloride 102, Carbon Dioxide 28.0, BUN 41 H, Creatinine 3.96 H, Estim Creat Clear Calc 11.65, Est GFR (MDRD) Af Amer 15 L, Est GFR (MDRD) Non-Af 12 L, BUN/Creatinine Ratio 10.4, Glucose 151 H, Calcium 8.1 L, Phosphorus 4.9, Total Bilirubin 0.40, Direct Bilirubin 0.15, AST 12 L, ALT 22, Alkaline Phosphatase 74, Total Protein 6.0 L, Albumin 2.5 L, Globulin 3.5 08/22/22 06:30: POC Glucose 146 H Micro: Microbiology 08/16/22 14:25 Blood Culture (Wb) - Left Forearm Blood Culture - Final No growth in 5 days. 08/16/22 14:15 Blood Culture (Wb) #2 - Anticubital Right Blood Culture - Final No growth in 5 days. 08/16/22 19:00 Urine, Clean Catch Urine Culture - Final Aerococcus urinae 08/16/22 19:00 Urine Catheter - Gaffney Legionella Antigen - Final 08/16/22 19:00 Urine Catheter - Gaffney Streptococcus pneumoniae Antigen (M - Final Streptococcus pneumonia Ag 08/16/22 13:25 Nasal Secretion SARS-CoV-2 & FLU Antigen (Rapid) - Final Rhythm Strip Rhythm Strip: Sinus Rhythm Physical Exam Const alert, oriented x3 and no apparent distress General Appearance: well developed Orientation / Consciousness: oriented to person, oriented to place and oriented to time HEENT normocephalic Head and Scalp: atraumatic Eyes PERRL Neck no lymphadenopathy Resp no use of accessory muscles and clear to auscultation bilaterally Cardio regular rate Cardio Narrative: Has 2+ pitting edema, right more than left GI non-tender Auscultation: normoactive bowel sounds Palpation: soft Assessment & Plan Assessment/Plan (1) Acute kidney injury superimposed on chronic kidney disease: PLAN: Unfortunately she is currently dialysis dependent, last dialysis yesterday. We will monitor kidney function, waiting for recovery. Tentatively will schedule dialysis for Wednesday
[2022-08-22] MEDS: Insulin Lispro 100 UNIT/ML INSULN.PEN SC ×3 (10:58→21:02)
[2022-08-22 11:21] LABS: Bedside Glucose 185 mg/dL (74-106)
--- NOTE | 2022-08-22 11:21 | PCM.PN.HOSP ---
Subjective Subjective Patient is a 62-year-old lady with multiple comorbidities including diabetes mellitus type 2 essential hypertension chronic kidney disease stage III presented with progressive generalized weakness shortness of breath and dysuria. Patient was found to have impaired kidney function with hyperkalemia admitted to a monitored bed with consultation placed to nephrology Objective Data Objective Data Vital Signs: Vital Signs Temp Pulse Resp BP Pulse Ox O2 Del Method O2 Flow Rate 97.7 F L 88 16 133/66 H 94 Room Air 2 08/22/22 09:32 08/22/22 09:37 08/22/22 09:32 08/22/22 09:37 08/22/22 09:35 08/22/22 09:35 08/22/22 07:46 FiO2 94 08/18/22 04:00 Oxygen Flow Rate (L/min) 2 Oxygen Delivery Method Room Air Weight: 91.4 kg Body Mass Index (BMI) 34.4 Intake & Output: Intake and Output for Last 24 Hours 08/20/22 08/21/22 08/22/22 23:59 23:59 23:59 Intake Total 680 / 680 490 / 490 240 / 240 Output Total 1700 / 1700 875 / 875 Balance -1020 / -1020 -385 / -385 240 / 240 Lab / Micro Data Result Diagrams: 08/22/22 06:25 08/22/22 06:25 Labs: Laboratory Results - last 24 hr 08/21/22 11:40: POC Glucose 141 H 08/21/22 16:42: POC Glucose 324 H 08/21/22 21:02: POC Glucose 304 H 08/22/22 06:25: WBC 12.2 H, RBC 3.47 L, Hgb 9.2 L, Hct 29.7 L, MCV 85.6, MCH 26.5 L, MCHC 31.0 L, RDW Std Deviation 42.9, RDW Coeff of Mat 13.9, Plt Count 258, MPV 9.3, Immature Gran % (Auto) 2.500 H, Neut % (Auto) 79.0 H, Lymph % (Auto) 11.7 L, [place] % (Auto) 6.5, Eos % (Auto) 0.2, Baso % (Auto) 0.1, Absolute Neuts (auto) 9.6 H, Absolute Lymphs (auto) 1.43, Nucleated RBC % 0 08/22/22 06:25: Sodium 138, Potassium 4.4, Chloride 102, Carbon Dioxide 28.0, BUN 41 H, Creatinine 3.96 H, Estim Creat Clear Calc 11.65, Est GFR (MDRD) Af Amer 15 L, Est GFR (MDRD) Non-Af 12 L, BUN/Creatinine Ratio 10.4, Glucose 151 H, Calcium 8.1 L, Phosphorus 4.9, Total Bilirubin 0.40, Direct Bilirubin 0.15, AST 12 L, ALT 22, Alkaline Phosphatase 74, Total Protein 6.0 L, Albumin 2.5 L, Globulin 3.5 08/22/22 06:30: POC Glucose 146 H 08/22/22 10:56: POC Glucose 185 H Micro: Microbiology 08/16/22 14:25 Blood Culture (Wb) - Left Forearm Blood Culture - Final No growth in 5 days. 08/16/22 14:15 Blood Culture (Wb) #2 - Anticubital Right Blood Culture - Final No growth in 5 days. 08/16/22 19:00 Urine, Clean Catch Urine Culture - Final Aerococcus urinae 08/16/22 19:00 Urine Catheter - Gaffney Legionella Antigen - Final 08/16/22 19:00 Urine Catheter - Gaffney Streptococcus pneumoniae Antigen (M - Final Streptococcus pneumonia Ag 08/16/22 13:25 Nasal Secretion SARS-CoV-2 & FLU Antigen (Rapid) - Final Rhythm Strip Rhythm Strip: Sinus Rhythm Physical Exam Narrative GENERAL: cooperative HEENT: Atraumatic; normocephalic EYES; Anicteric, Normal Conjunctiva NECK; supple, normal thyroid, RESPIRATORY: Diminished to auscultation CARDIOVASCULAR: Regular S1 S2, GI: soft, normoactive bowel sounds, : No Renal angle tenderness; EXTREMITIES: Bilateral stasis dermatitis MUSCULOSKELETAL: no muscle wasting NEURO: Awake; no lateralizing signs. SKIN: No Rash PSYCH; Flat affect Assessment & Plan Assessment/Plan (1) Acute kidney injury superimposed on chronic kidney disease: (2) Acute respiratory failure with hypercapnia: PLAN: Plan Patient is a 62-year-old lady with multiple comorbidities including diabetes mellitus type 2 essential hypertension chronic kidney disease stage III presented with progressive generalized weakness shortness of breath and dysuria. Patient was found to have impaired kidney function with hyperkalemia admitted to a monitored bed with consultation placed to nephrology 1. Acute kidney injury ? Superimposed on chronic kidney disease stage III. Patient kidney function worsened necessitating patient requiring admission after placement of right IJ tunneled catheter nephrology on board 2. Hyperkalemia ? Secondary to acute kidney injury resolved with her dialysis 3. Acute hypoxic and hypercapnic respiratory failure ? Secondary toStreptococcal pneumonia. Patient was managed on noninvasive ventilation BiPAP which has since been weaned off. Remains on broad-spectrum antibiotic therapy. 4. Acute metabolic encephalopathy ? Secondary to acute kidney injury as well as pneumonia with hypoxia resolved 5. Diabetes mellitus type 2 ? With complications including diabetic nephropathy as well as diabetic polyneuropathy. Held patient oral agents placed on long-acting insulin with sliding scale coverage 6. Class II obesity with BMI of 37 ? Weight loss advised 7. Essential hypertension ? Patient blood pressure control remains labile. Held patient potential nephrotoxic medications including lisinopril and Aldactone in view of worsening kidney function as well as hyperkalemia on admission 8. Rheumatoid arthritis ? Patient is on leflunomide held in view of her infection 9. DVT prophylaxis ? BRITT Castellano Charges/Coding Visit Charges Inpatient E&M: 33658 Subs Hosp L2
[2022-08-22 16:30] LABS: Bedside Glucose 230 mg/dL (74-106)
[2022-08-22] MEDS: Pramipexole Di-HCl 0.5 MG Tablet PO (21:00)
[2022-08-22] MEDS: Insulin Glargine-YFGN 100 UNIT/ML Pen 19 UNIT SC (21:01)
[2022-08-22 21:40] LABS: Bedside Glucose 286 mg/dL (74-106)
--- NOTE | 2022-08-22 23:48 | CPS ---
Bipap no longer in room, pt has been refusing the last several days.
[2022-08-23] VITALS (13 sets, daily range): BP systolic 130–158; BP diastolic 60–77; PULSE 77–98; RESP 12–20; TEMP 36.6–37.2; O2SAT 92–97
[2022-08-23] MEDS: Ipratropium/Albuterol Sulfate 3 ML AMPUL.NEB INHALATION ×4 (03:18→20:28)
[2022-08-23 07:05] LABS: Bedside Glucose 141 mg/dL (74-106)
--- NOTE | 2022-08-23 08:16 | PN.HOSP_ITS ---
Subjective Subjective Patient seen no change in clinical condition. Follow-up labs ordered for a.m. Objective Data Objective Data Vital Signs: Vital Signs Temp Pulse Resp BP Pulse Ox O2 Del Method O2 Flow Rate 98.4 F 85 12 158/77 H 92 Room Air 2 08/23/22 03:00 08/23/22 03:18 08/23/22 03:18 08/23/22 03:00 08/23/22 03:00 08/23/22 03:02 08/22/22 07:46 FiO2 94 08/18/22 04:00 Oxygen Flow Rate (L/min) 2 Oxygen Delivery Method Room Air Weight: 91.4 kg Body Mass Index (BMI) 34.4 Intake & Output: Intake and Output for Last 24 Hours 08/21/22 08/22/22 08/23/22 23:59 23:59 23:59 Intake Total 490 / 490 1080 / 1080 120 / 120 Output Total 875 / 875 Balance -385 / -385 1080 / 1080 120 / 120 Lab / Micro Data Result Diagrams: 08/22/22 06:25 08/22/22 06:25 Labs: Laboratory Results - last 24 hr 08/22/22 10:56: POC Glucose 185 H 08/22/22 16:10: POC Glucose 230 H 08/22/22 20:59: POC Glucose 286 H 08/23/22 06:32: POC Glucose 141 H Micro: Microbiology 08/16/22 14:25 Blood Culture (Wb) - Left Forearm Blood Culture - Final No growth in 5 days. 08/16/22 14:15 Blood Culture (Wb) #2 - Anticubital Right Blood Culture - Final No growth in 5 days. 08/16/22 19:00 Urine, Clean Catch Urine Culture - Final Aerococcus urinae 08/16/22 19:00 Urine Catheter - Gaffney Legionella Antigen - Final 08/16/22 19:00 Urine Catheter - Gaffney Streptococcus pneumoniae Antigen (M - Final Streptococcus pneumonia Ag 08/16/22 13:25 Nasal Secretion SARS-CoV-2 & FLU Antigen (Rapid) - Final Rhythm Strip Rhythm Strip: Sinus Rhythm Physical Exam Narrative GENERAL: cooperative HEENT: Atraumatic; normocephalic EYES; Anicteric, Normal Conjunctiva NECK; supple, normal thyroid, RESPIRATORY: Diminished to auscultation CARDIOVASCULAR: Regular S1 S2, GI: soft, normoactive bowel sounds, : No Renal angle tenderness; EXTREMITIES: Bilateral stasis dermatitis MUSCULOSKELETAL: no muscle wasting NEURO: Awake; no lateralizing signs. SKIN: No Rash PSYCH; Flat affect Assessment & Plan Assessment/Plan (1) Acute kidney injury superimposed on chronic kidney disease: (2) Acute respiratory failure with hypercapnia: PLAN: Plan Patient is a 62-year-old lady with multiple comorbidities including diabetes mellitus type 2 essential hypertension chronic kidney disease stage III presented with progressive generalized weakness shortness of breath and dysuria. Patient was found to have impaired kidney function with hyperkalemia admitted to a monitored bed with consultation placed to nephrology 1. Acute kidney injury ? Superimposed on chronic kidney disease stage III. Patient kidney function worsened necessitating patient requiring admission after placement of right IJ tunneled catheter nephrology on board -08/23/2022; Patient seen no change in clinical condition. Follow-up labs ordered for a.m. 2. Hyperkalemia ? Secondary to acute kidney injury resolved with her dialysis 3. Acute hypoxic and hypercapnic respiratory failure ? Secondary toStreptococcal pneumonia. Patient was managed on noninvasive venti lation BiPAP which has since been weaned off. Remains on broad-spectrum antibiotic therapy. 4. Acute metabolic encephalopathy ? Secondary to acute kidney injury as well as pneumonia with hypoxia resolved 5. Diabetes mellitus type 2 ? With complications including diabetic nephropathy as well as diabetic polyneuropathy. Held patient oral agents placed on long-acting insulin with sliding scale coverage 6. Class II obesity with BMI of 37 ? Weight loss advised 7. Essential hypertension ? Patient blood pressure control remains labile. Held patient potential nephrotoxic medications including lisinopril and Aldactone in view of worsening kidney function as well as hyperkalemia on admission 8. Rheumatoid arthritis ? Patient is on leflunomide held in view of her infection 9. DVT prophylaxis ? [place] Lovenox Charges/Coding Visit Charges Inpatient E&M: 07024 Subs Hosp L2
[2022-08-23] MEDS: predniSONE 20 MG Tablet 40 MG PO (08:22)
[2022-08-23] MEDS: Amox/Clavulanate 500 MG Tablet PO ×2 (08:22→16:29)
[2022-08-23 10:38] LABS: ALB/GLOB Ratio 0.8 RATIO (0.9-2.4); AST(SGOT) 14 U/L (15-37); Alanine Aminotransfer ALT/SGPT 25 U/L (13-56); Albumin, Serum 2.7 g/dL (3.2-5.0); Alkaline Phosphatase 74 U/L (45-117); Anion Gap 9 (5-15); BUN 48 mg/dL (7-18); BUN/Creat Ratio 10.1 RATIO (10-20); Calcium,Total 8.4 mg/dL (8.5-10.1); Chloride 101 mmol/L (98-107); Creatinine, Serum 4.73 mg/dL (0.55-1.02); EST Glomerular Filtration Rate 10 mL/min (>60); Est Glom Filt Rate - Afr Amer 12 mL/min (>60); Estimated Creatinine Clearance 9.75 ml/min; Globulin 3.2 g/dL (2.2-4.2); Glucose 164 mg/dL (74-106); Magnesium 1.9 mg/dL (1.6-2.6); Phosphorus 5.6 mg/dL (2.5-4.9); Potassium 4.2 mmol/L (3.5-5.1); Protein, Total 5.9 g/dL (6.4-8.2); Sodium Level 136 mmol/L (136-145)
[2022-08-23] MEDS: Enoxaparin 30 MG/0.3 ML Syringe SC (10:48)
[2022-08-23] MEDS: Metoprolol(XL)Succ 25 MG Tablet PO (10:48)
[2022-08-23 11:55] LABS: Bedside Glucose 162 mg/dL (74-106)
[2022-08-23] MEDS: Insulin Lispro 100 UNIT/ML INSULN.PEN SC ×3 (12:36→22:25)
[2022-08-23 16:50] LABS: Bedside Glucose 340 mg/dL (74-106)
--- NOTE | 2022-08-23 16:54 | NURSING ---
pt has been refusing wound care to legs, had rn shift mgr remove drsg to right ( he only one left) prior to this shift-pt declines wound care this shift also, encouraged to keep legs elevated when in chair
--- NOTE | 2022-08-23 20:05 | PCM.HOSP.N ---
Hospitalist Note Onset diarrhea per discussion with staff. On abx currently. Will obtain cdiff to be cautious and if negative will start loperamide. Will add lactobacillus regimen concurrently.
[2022-08-23 21:30] LABS: Bedside Glucose 350 mg/dL (74-106)
[2022-08-23] MEDS: Menthol/Lanolin/Calamine/Znox 113 GM Tube 1 APPLIC TOPICAL (22:11)
[2022-08-23] MEDS: Pramipexole Di-HCl 0.5 MG Tablet PO (22:15)
[2022-08-23] MEDS: Insulin Glargine-YFGN 100 UNIT/ML Pen 19 UNIT SC (22:24)
[2022-08-24] VITALS (10 sets, daily range): BP systolic 130–164; BP diastolic 63–106; PULSE 78–87; RESP 14–24; TEMP 36.6–37.5; O2SAT 94–98
[2022-08-24 07:15] LABS: Absolute Lymphocyte Count 1.46 X10^3/uL (0.83-4.51); Absolute Neutrophil Count 9.5 X10^3/uL (2.0-7.7); Basophil# 0.01 X10^3/uL; Basophil% 0.1 % (0-1); Eosinophils% 0.8 % (0-5); Hematocrit 28.9 % (37-47); Hemoglobin 9.4 g/dL (12.0-15.0); Lymphocyte # 1.46 X10^3/ul (0.83-4.51); Lymphocyte % 12.1 % (19-41); Mean Corp Hgb Conc 32.5 g/dL (32-36); Mean Corpuscular Hgb 27.6 pg (27.0-32.0); Mean Corpuscular Volume 84.8 fL (81-99); Mean Platelet Vol. 9.2 fl (6.2-12.0); Monocyte# 0.84 X10^3/uL; NRBC Flagged by Analyzer 0 % (0-5); Neutrophil # 9.45 X10^3/uL (2.7-7.7); Neutrophil % 78.3 % (47-70); Platelet Count 259 K/mm3 (150-450); RBC Distribution Width CV 13.8 % (11.6-14.6); Red Blood Count 3.41 M/mm3 (4.2-5.4); White Blood Count 12.1 K/mm3 (4.4-11.0)
[2022-08-24] MEDS: Ipratropium/Albuterol Sulfate 3 ML AMPUL.NEB INHALATION ×2 (07:26→19:49)
[2022-08-24 07:35] LABS: Bedside Glucose 147 mg/dL (74-106)
[2022-08-24 07:59] LABS: Anion Gap 8 (5-15); BUN 53 mg/dL (7-18); BUN/Creat Ratio 10.5 RATIO (10-20); Calcium,Total 8.6 mg/dL (8.5-10.1); Chloride 100 mmol/L (98-107); Creatinine, Serum 5.04 mg/dL (0.55-1.02); EST Glomerular Filtration Rate 9 mL/min (>60); Est Glom Filt Rate - Afr Amer 11 mL/min (>60); Estimated Creatinine Clearance 9.15 ml/min; Glucose 161 mg/dL (74-106); Potassium 4.4 mmol/L (3.5-5.1); Sodium Level 136 mmol/L (136-145)
--- NOTE | 2022-08-24 09:19 | PCM.PN.HOSP ---
Subjective Subjective Patient seen currently having dialysis. Slight bump in her kidney function otherwise had a relatively uneventful night Objective Data Objective Data Vital Signs: Vital Signs Temp Pulse Resp BP Pulse Ox O2 Del Method O2 Flow Rate 97.9 F 81 16 164/75 H 94 Room Air 2 08/24/22 04:00 08/24/22 07:27 08/24/22 07:27 08/24/22 04:00 08/24/22 07:27 08/24/22 08:47 08/23/22 07:40 FiO2 94 08/18/22 04:00 Oxygen Flow Rate (L/min) 2 Oxygen Delivery Method Room Air Weight: 92.3 kg Body Mass Index (BMI) 34.4 Intake & Output: Intake and Output for Last 24 Hours 08/22/22 08/23/22 08/24/22 23:59 23:59 23:59 Intake Total 1080 / 1080 1220 / 1220 200 / 200 Output Total 0 / 0 Balance 1080 / 1080 1220 / 1220 200 / 200 Lab / Micro Data Result Diagrams: 08/24/22 07:00 08/24/22 07:00 Labs: Laboratory Results - last 24 hr 08/23/22 10:13: Sodium 136, Potassium 4.2, Chloride 101, Carbon Dioxide 26.0, Anion Gap 9, BUN 48 H, Creatinine 4.73 H, Estim Creat Clear Calc 9.75, Est GFR (MDRD) Af Amer 12 L, Est GFR (MDRD) Non-Af 10 L, BUN/Creatinine Ratio 10.1, Glucose 164 H, Calcium 8.4 L, Phosphorus 5.6 H, Magnesium 1.9, Total Bilirubin 0.40, AST 14 L, ALT 25, Alkaline Phosphatase 74, Total Protein 5.9 L, Albumin 2.7 L, Globulin 3.2, Albumin/Globulin Ratio 0.8 L 08/23/22 11:37: POC Glucose 162 H 08/23/22 16:27: POC Glucose 340 H 08/23/22 21:08: POC Glucose 350 H 08/24/22 07:00: WBC 12.1 H, RBC 3.41 L, Hgb 9.4 L, Hct 28.9 L, MCV 84.8, MCH 27.6, MCHC 32.5, RDW Std Deviation 43.0, RDW Coeff of Mat 13.8, Plt Count 259, MPV 9.2, Immature Gran % (Auto) 1.700 H, Neut % (Auto) 78.3 H, Lymph % (Auto) 12.1 L, [place] % (Auto) 7.0, Eos % (Auto) 0.8, Baso % (Auto) 0.1, Absolute Neuts (auto) 9.5 H, Absolute Lymphs (auto) 1.46, Nucleated RBC % 0 08/24/22 07:00: Sodium 136, Potassium 4.4, Chloride 100, Carbon Dioxide 28.0, Anion Gap 8, BUN 53 H, Creatinine 5.04 H, Estim Creat Clear Calc 9.15, Est GFR (MDRD) Af Amer 11 L, Est GFR (MDRD) Non-Af 9 L, BUN/Creatinine Ratio 10.5, Glucose 161 H, Calcium 8.6 08/24/22 07:11: POC Glucose 147 H Micro: Microbiology 08/16/22 14:25 Blood Culture (Wb) - Left Forearm Blood Culture - Final No growth in 5 days. 08/16/22 14:15 Blood Culture (Wb) #2 - Anticubital Right Blood Culture - Final No growth in 5 days. 08/16/22 19:00 Urine, Clean Catch Urine Culture - Final Aerococcus urinae 08/16/22 19:00 Urine Catheter - Gaffney Legionella Antigen - Final 08/16/22 19:00 Urine Catheter - Gaffney Streptococcus pneumoniae Antigen (M - Final Streptococcus pneumonia Ag 08/16/22 13:25 Nasal Secretion SARS-CoV-2 & FLU Antigen (Rapid) - Final Rhythm Strip Rhythm Strip: Sinus Rhythm Physical Exam Narrative GENERAL: cooperative HEENT: Atraumatic; normocephalic EYES; Anicteric, Normal Conjunctiva NECK; supple, normal thyroid, RESPIRATORY: Diminished to auscultation CARDIOVASCULAR: Regular S1 S2, GI: soft, normoactive bowel sounds, : No Renal angle tenderness; EXTREMITIES: Bilateral stasis dermatitis MUSCULOSKELETAL: no muscle wasting NEURO: Awake; no lateralizing signs. SKIN: No Rash PSYCH; Flat affect Assessment & Plan Assessment/Plan (1) Acute kidney injury superimposed on chronic kidney disease: (2) Acute respiratory failure with hypercapnia: PLAN: Plan Patient is a 62-year-old lady with multiple comorbidities including diabetes mellitus type 2 essential hypertension chronic kidney disease stage III presented with progressive generalized weakness shortness of breath and dysuria. Patient was found to have impaired kidney function with hyperkalemia admitted to a monitored bed with consultation placed to nephrology 1. Acute kidney injury ? Superimposed on chronic kidney disease stage III. Patient kidney function worsened necessitating patient requiring admission after placement of right IJ tunneled catheter nephrology on board -08/23/2022; Patient seen no change in clinical condition. Follow-up labs ordered for a.m. -08/24/2022; patient seen having dialysis. Patient anticipated to continue with dialysis as outpatient. Case management to set up. Patient preference is [facility] 2. Hyperkalemia ? Secondary to acute kidney injury resolved with her dialysis 3. Acute hypoxic and hypercapnic respiratory failure ? Secondary toStreptococcal pneumonia. Patient was managed on noninvasive ventilation BiPAP which has since been weaned off. Remains on broad-spectrum antibiotic therapy. 4. Acute metabolic encephalopathy ? Secondary to acute kidney injury as well as pneumonia with hypoxia resolved 5. Diabetes mellitus type 2 ? With complications including diabetic nephropathy as well as diabetic polyneuropathy. Held patient oral agents placed on long-acting insulin with sliding scale coverage 6. Class II obesity with BMI of 37 ? Weight loss advised 7. Essential hypertension ? Patient blood pressure control remains labile. Held patient potential nephrotoxic medications including lisinopril and Aldactone in view of worsening kidney function as well as hyperkalemia on admission 8. Rheumatoid arthritis ? Patient is on leflunomide held in view of her infection 9. DVT prophylaxis ? [place] Charges/Coding Visit Charges Inpatient E&M: 00507 Subs Hosp L2
[2022-08-24] MEDS: predniSONE 20 MG Tablet 40 MG PO (12:10)
[2022-08-24] MEDS: Metoprolol(XL)Succ 25 MG Tablet PO (12:10)
[2022-08-24] MEDS: Enoxaparin 30 MG/0.3 ML Syringe SC (12:18)
[2022-08-24] MEDS: Menthol/Lanolin/Calamine/Znox 113 GM Tube 1 APPLIC TOPICAL ×2 (12:19→22:08)
[2022-08-24 12:25] LABS: Bedside Glucose 109 mg/dL (74-106)
[2022-08-24] MEDS: Amox/Clavulanate 500 MG Tablet PO ×2 (13:04→23:33)
[2022-08-24] MEDS: Insulin Lispro 100 UNIT/ML INSULN.PEN SC ×2 (16:53→22:08)
[2022-08-24 17:00] LABS: Bedside Glucose 213 mg/dL (74-106)
--- NOTE | 2022-08-24 17:01 | PN.RENAL_ITS ---
Subjective Subjective F/U on [facility]IANA requiring PROCEDURAL NURSE. She just had HD and feels good, no issues. Wants to go home Objective Data Objective Data Vital Signs: Vital Signs Temp Pulse Resp BP Pulse Ox O2 Del Method O2 Flow Rate 99.5 F H 80 14 130/106 H 94 Room Air 2 08/24/22 15:58 08/24/22 15:58 08/24/22 15:58 08/24/22 15:58 08/24/22 15:58 08/24/22 15:58 08/23/22 07:40 FiO2 94 08/18/22 04:00 Oxygen Flow Rate (L/min) 2 Oxygen Delivery Method Room Air Weight: 92.3 kg Body Mass Index (BMI) 34.4 Intake & Output: Intake and Output for Last 24 Hours 08/22/22 08/23/22 08/24/22 23:59 23:59 23:59 Intake Total 1080 / 1080 1220 / 1220 680 / 680 Output Total 0 / 0 Balance 1080 / 1080 1220 / 1220 680 / 680 Lab / Micro Data Attestation: I reviewed the patient's lab results. Result Diagrams: 08/24/22 07:00 08/24/22 07:00 Labs: Laboratory Results - last 24 hr 08/23/22 21:08: POC Glucose 350 H 08/24/22 07:00: WBC 12.1 H, RBC 3.41 L, Hgb 9.4 L, Hct 28.9 L, MCV 84.8, MCH 27.6, MCHC 32.5, RDW Std Deviation 43.0, RDW Coeff of Mat 13.8, Plt Count 259, MPV 9.2, Immature Gran % (Auto) 1.700 H, Neut % (Auto) 78.3 H, Lymph % (Auto) 12.1 L, [place] % (Auto) 7.0, Eos % (Auto) 0.8, Baso % (Auto) 0.1, Absolute Neuts (auto) 9.5 H, Absolute Lymphs (auto) 1.46, Nucleated RBC % 0 08/24/22 07:00: Sodium 136, Potassium 4.4, Chloride 100, Carbon Dioxide 28.0, Anion Gap 8, BUN 53 H, Creatinine 5.04 H, Estim Creat Clear Calc 9.15, Est GFR (MDRD) Af Amer 11 L, Est GFR (MDRD) Non-Af 9 L, BUN/Creatinine Ratio 10.5, Glucose 161 H, Calcium 8.6 08/24/22 07:11: POC Glucose 147 H 08/24/22 12:05: POC Glucose 109 H 08/24/22 16:28: POC Glucose 213 H Micro: Microbiology 08/16/22 14:25 Blood Culture (Wb) - Left Forearm Blood Culture - Final No growth in 5 days. 08/16/22 14:15 Blood Culture (Wb) #2 - Anticubital Right Blood Culture - Final No growth in 5 days. 08/16/22 19:00 Urine, Clean Catch Urine Culture - Final Aerococcus urinae 08/16/22 19:00 Urine Catheter - Gaffney Legionella Antigen - Final 08/16/22 19:00 Urine Catheter - Gaffney Streptococcus pneumoniae Antigen (M - Final Streptococcus pneumonia Ag 08/16/22 13:25 Nasal Secretion SARS-CoV-2 & FLU Antigen (Rapid) - Final Radiography Diagnostic Testing: Radiology Impression Venous Doppler Study 08/21/22 23:49 Interpretation Summary There is no evidence of right lower extremity deep vein thrombosis. Right great saphenous vein appears patent and compressible segmentally. Normal flow patterns left common femoral vein Ordering Physician: Kal Mcdaniel Referring Physician: Eliezer Armando Performed By: Drake Soto RVT Rhythm Strip Rhythm Strip: Sinus Rhythm Physical Exam Const alert, oriented x3, no apparent distress and average body habitus General Appearance: well developed Orientation / Consciousness: oriented to person, oriented to place and oriented to time Nutritional Appearance: obese HEENT normocephalic Head and Scalp: atraumatic Resp no use of accessory muscles and clear to auscultation bilaterally Cardio regular rate Peripheral Pulses: pulses 2+ throughout GI non-tender and non-distended Auscultation: normoactive bowel sounds Palpation: soft Extremity Extremity Narrative: has edema, excoriation ren Neuro Sensorium / Orientation: awake and alert Psych cooperative Assessment & Plan Assessment/Plan (1) Acute kidney injury superimposed on chronic kidney disease: PLAN: So far no recovery, so will arrange tunneled HD cath placement so she can go home and monitor her for renal fx recovery as an out PT
--- NOTE | 2022-08-24 19:45 | DIALYSIS ---
Hemodialysis tx completed x 3 hours without complications. Tx completed at 11:40. Pt tolerated tx well, fluid removed 1,000ml using crit-line monitor to B-profile. Vitals stable through out tx. Verbal report to [place] [facility] post tx.
[2022-08-24] MEDS: Insulin Glargine-YFGN 100 UNIT/ML Pen 19 UNIT SC (22:09)
[2022-08-24] MEDS: Pramipexole Di-HCl 0.5 MG Tablet PO (22:09)
[2022-08-24] MEDS: Acetaminophen 325 MG Tablet 650 MG PO (22:19)
[2022-08-25] VITALS (19 sets, daily range): BP systolic 125–162; BP diastolic 56–82; PULSE 74–89; RESP 14–20; TEMP 36.7–37.1; O2SAT 92–96; BMI 37.7
[2022-08-25 00:10] LABS: Bedside Glucose 355 mg/dL (74-106)
[2022-08-25 05:33] LABS: Absolute Lymphocyte Count 1.53 X10^3/uL (0.83-4.51); Absolute Neutrophil Count 8.7 X10^3/uL (2.0-7.7); Basophil# 0.02 X10^3/uL; Basophil% 0.2 % (0-1); Eosinophil# 0.01 X10^3/uL; Eosinophils% 0.1 % (0-5); Hematocrit 30.6 % (37-47); Hemoglobin 9.5 g/dL (12.0-15.0); Lymphocyte # 1.53 X10^3/ul (0.83-4.51); Lymphocyte % 13.7 % (19-41); Mean Corpuscular Hgb 26.8 pg (27.0-32.0); Mean Corpuscular Volume 86.4 fL (81-99); Mean Platelet Vol. 9.3 fl (6.2-12.0); Monocyte# 0.67 X10^3/uL; NRBC Flagged by Analyzer 0 % (0-5); Neutrophil # 8.74 X10^3/uL (2.7-7.7); Neutrophil % 78.5 % (47-70); Platelet Count 278 K/mm3 (150-450); RBC Distribution Width CV 13.8 % (11.6-14.6); RBC Distribution Width SD 43.6 fl (35.1-43.9); Red Blood Count 3.54 M/mm3 (4.2-5.4); White Blood Count 11.1 K/mm3 (4.4-11.0)
[2022-08-25 05:51] LABS: Anion Gap 5 (5-15); BUN 32 mg/dL (7-18); BUN/Creat Ratio 9.1 RATIO (10-20); Chloride 98 mmol/L (98-107); Creatinine, Serum 3.52 mg/dL (0.55-1.02); EST Glomerular Filtration Rate 14 mL/min (>60); Est Glom Filt Rate - Afr Amer 17 mL/min (>60); Estimated Creatinine Clearance 13.11 ml/min; Glucose 176 mg/dL (74-106); Potassium 4.8 mmol/L (3.5-5.1); Sodium Level 134 mmol/L (136-145)
[2022-08-25 06:56] LABS: Bedside Glucose 139 mg/dL (74-106)
[2022-08-25] MEDS: Ipratropium/Albuterol Sulfate 3 ML AMPUL.NEB INHALATION ×3 (07:12→20:30)
--- NOTE | 2022-08-25 08:43 | CON.PCM.SX_ITS ---
Assessment & Plan Assessment/Plan (1) Acute kidney injury superimposed on chronic kidney disease: PLAN: Plan Did remove the temporary dialysis catheter at bedside. Pressure was held for 20 minutes. Patient tolerated procedure well. We will plan for tunneled right possible left dialysis catheter placement in the OR today. Discussed procedure and with the patient including but not limited to bleeding, infection, malfunction of the catheter, pneumothorax, and anesthesia.. Patient no further question this time. Lisa Evans M.D. Pager: [phone] [facility] [address] [place] [address], [facility], [address] [place] [address] Office: [phone] HPI Consult Data Date of Consult: 08/25/22 HPI Narrative HPI Narrative: WENDI ADDISON, is a 62 F who admitted about 8 days ago. Patient had a temporary dialysis catheter placed in the right IJ on admission previously. Patient last got dialysis yesterday. Consulted for a tunneled dialysis catheter. Patient never been previously on dialysis to this hospitalization. COUNT INCLUDES THE [facility] Medical History Anxiety and depression Arthritis Breast lump Cancer Chronic pain Colon cancer COPD (chronic obstructive pulmonary disease) Depression High cholesterol HTN (hypertension) Neuropathy Recurrent UTI Rheumatic fever Rheumatoid arthritis Seasonal allergies Sleep apnea Smoker Type 2 diabetes mellitus Uterine cancer Vision problem Vitamin deficiency Home Medications ergocalciferol (vitamin D2) 1,250 mcg (50,000 unit) capsule 50,000 unit PO MARTELL SUPPLEMENT 02/28/14 [History Last Taken 01/25/22] gabapentin 600 mg tablet 600 mg PO BID NEUROPATHY 02/28/14 [History Last Taken 02/26/21] lisinopril 10 mg tablet 10 mg PO DAILY HIGH BLOOD PRESSURE 02/28/14 [History Last Taken 01/27/22 08:00] spironolactone 50 mg tablet 50 mg PO DAILY WATER RETENTION 02/28/14 [History Last Taken 01/27/22 08:00] duloxetine 60 mg capsule,delayed release 60 mg PO DAILY NEUROPATHY 02/17/18 [History Last Taken 01/27/22 08:00] atorvastatin 80 mg tablet 40 mg PO QDAY cholesterol 03/01/18 [History Last Taken 01/27/22 18:00] insulin glargine 100 unit/mL subcutaneous solution (Lantus U-100 Insulin) 19 unit subcut QHS dm 03/01/18 [History Last Taken 01/26/22] budesonide-formoterol HFA 160 mcg-4.5 mcg/actuation aerosol inhaler (Symbicort) 2 puff inhalation Q12H COPD 01/27/22 [History Last Taken 01/26/22 18:00] dulaglutide 0.75 mg/0.5 mL subcutaneous pen injector (Trulicity) 0.75 mg subcut QWEEK Diabetes 01/27/22 [History Last Taken 01/27/22] albuterol sulfate 2.5 mg/0.5 mL solution for nebulization 2.5 mg (0.5 mL) inhalation Q2H PRN shortness of breath or wheezing #30 ea 01/31/22 [Rx Last Taken Unknown] baclofen 10 mg tablet 10 mg PO TID muscle spasm 08/16/22 [History Last Taken Unknown] bupropion HCl 150 mg tablet,12 hr sustained-release 150 mg PO BID depression 08/16/22 [History Last Taken Unknown] furosemide 20 mg tablet 10 mg PO DAILY water pill 08/16/22 [History Last Taken Unknown] gabapentin 300 mg capsule 300 mg DAILY neuropathy 08/16/22 [History Last Taken Unknown] leflunomide 20 mg tablet 20 mg PO DAILY RA 08/16/22 [History Last Taken Unknown] metoprolol succinate 25 mg tablet,extended release 24 hr 25 mg PO DAILY bp 08/16/22 [History Last Taken Unknown] potassium chloride 10 mEq tablet,extended release 10 meq PO DAILY supplement 08/16/22 [History Last Taken Unknown] pramipexole 0.5 mg tablet 0.5 mg PO BID Check with primary doctor 08/16/22 [History Last Taken Unknown] pregabalin 50 mg capsule 50 mg PO BID pain 08/16/22 [History Last Taken Unknown] tamsulosin 0.4 mg capsule 0.4 mg PO DAILY Check with primary doctor 08/16/22 [History Last Taken Unknown] Allergy/AdvReac Type Severity Reaction Status Date / Time clindamycin Allergy Swelling Verified 08/16/22 12:43 metformin AdvReac Nausea Verified 08/16/22 12:43 Family History Father Arthritis Cancer Diabetes Heart disease Hypertension Mother Hypertension Sister Arthritis Lupus Daughter Kidney stones Surgical History Bowel obstruction History of hysterectomy for cancer tumer removed from colon Social History household members: family Smoking Status: Current every day smoker tobacco type: cigarettes alcohol intake: never substance use type: does not use ROS Constitutional Constitutional: Denies fever(s) Eyes Eyes: Denies blurry vision ENT HEENT: Denies dysphagia Cardiovascular Cardiovascular: Denies chest pain Respiratory/Chest Respiratory/Chest: Denies cough Gastrointestinal Gastrointestinal: Denies abdominal pain Genitourinary Genitourinary: Denies dysuria Musculoskeletal Musculoskeletal: Denies abnormal gait Integumentary Integumentary: Denies jaundice Neurologic Neurologic: Denies loss of vision Psychiatric Psychiatric: Reports anxiety; Denies depression Hematologic/Lymphatic Hematologic/Lymphatic: Denies easy bleeding Physical Exam Const alert, oriented x3 and no apparent distress Neck Neck Narrative: Right IJ temporary dialysis catheter in place Resp normal respiratory effort Cardio Rate: regular rate GI soft to palpation and non-distended Lab / Micro Data Result Diagrams: 08/25/22 04:54 08/25/22 04:54 Labs: Laboratory Results - last 24 hr 08/24/22 12:05: POC Glucose 109 H 08/24/22 16:28: POC Glucose 213 H 08/24/22 22:01: POC Glucose 355 H 08/25/22 04:54: WBC 11.1 H, RBC 3.54 L, Hgb 9.5 L, Hct 30.6 L, MCV 86.4, MCH 26.8 L, MCHC 31.0 L, RDW Std Deviation 43.6, RDW Coeff of Mat 13.8, Plt Count 278, MPV 9.3, Immature Gran % (Auto) 1.500 H, Neut % (Auto) 78.5 H, Lymph % (Auto) 13.7 L, [place] % (Auto) 6.0, Eos % (Auto) 0.1, Baso % (Auto) 0.2, Absolute Neuts (auto) 8.7 H, Absolute Lymphs (auto) 1.53, Nucleated RBC % 0 08/25/22 04:54: Sodium 134 L, Potassium 4.8, Chloride 98, Carbon Dioxide 31.0, Anion Gap 5, BUN 32 H, Creatinine 3.52 H, Estim Creat Clear Calc 13.11, Est GFR (MDRD) Af Amer 17 L, Est GFR (MDRD) Non-Af 14 L, BUN/Creatinine Ratio 9.1 L, Glucose 176 H, Calcium 9.0 08/25/22 06:10: POC Glucose 139 H Rhythm Strip Rhythm Strip: Sinus Rhythm Radiology Impression Venous Doppler Study 08/21/22 23:49 Interpretation Summary There is no evidence of right lower extremity deep vein thrombosis. Right great saphenous vein appears patent and compressible segmentally. Normal flow patterns left common femoral vein Ordering Physician: Kal Mcdaniel Referring Physician: Eliezer Armando Performed By: Drake Soto RVT Charges/Coding Visit Charges Inpatient E&M: 79663 Init Hosp L3
[2022-08-25] MEDS: Metoprolol(XL)Succ 25 MG Tablet PO (09:46)
--- NOTE | 2022-08-25 11:29 | PCM.PN.REN ---
Subjective Subjective Resting in bed. No overnight events. Hoping to go home today. Objective Data Objective Data Vital Signs: Vital Signs Temp Pulse Resp BP Pulse Ox O2 Del Method O2 Flow Rate 98.2 F 84 15 162/74 H 92 Room Air 2 08/25/22 09:40 08/25/22 11:15 08/25/22 09:40 08/25/22 09:46 08/25/22 09:40 08/25/22 09:40 08/23/22 07:40 FiO2 94 08/18/22 04:00 Oxygen Flow Rate (L/min) 2 Oxygen Delivery Method Room Air Weight: 93.6 kg Body Mass Index (BMI) 37.7 Intake & Output: Intake and Output for Last 24 Hours 08/23/22 08/24/22 08/25/22 23:59 23:59 23:59 Intake Total 1220 / 1220 1120 / 1120 0 / 0 Output Total 0 / 0 0 / 0 Balance 1220 / 1220 1120 / 1120 0 / 0 Lab / Micro Data Result Diagrams: 08/25/22 04:54 08/25/22 04:54 Labs: Laboratory Results - last 24 hr 08/24/22 12:05: POC Glucose 109 H 08/24/22 16:28: POC Glucose 213 H 08/24/22 22:01: POC Glucose 355 H 08/25/22 04:54: WBC 11.1 H, RBC 3.54 L, Hgb 9.5 L, Hct 30.6 L, MCV 86.4, MCH 26.8 L, MCHC 31.0 L, RDW Std Deviation 43.6, RDW Coeff of Mat 13.8, Plt Count 278, MPV 9.3, Immature Gran % (Auto) 1.500 H, Neut % (Auto) 78.5 H, Lymph % (Auto) 13.7 L, [place] % (Auto) 6.0, Eos % (Auto) 0.1, Baso % (Auto) 0.2, Absolute Neuts (auto) 8.7 H, Absolute Lymphs (auto) 1.53, Nucleated RBC % 0 08/25/22 04:54: Sodium 134 L, Potassium 4.8, Chloride 98, Carbon Dioxide 31.0, Anion Gap 5, BUN 32 H, Creatinine 3.52 H, Estim Creat Clear Calc 13.11, Est GFR (MDRD) Af Amer 17 L, Est GFR (MDRD) Non-Af 14 L, BUN/Creatinine Ratio 9.1 L, Glucose 176 H, Calcium 9.0 08/25/22 06:10: POC Glucose 139 H Micro: Microbiology 08/16/22 14:25 Blood Culture (Wb) - Left Forearm Blood Culture - Final No growth in 5 days. 08/16/22 14:15 Blood Culture (Wb) #2 - Anticubital Right Blood Culture - Final No growth in 5 days. 08/16/22 19:00 Urine, Clean Catch Urine Culture - Final Aerococcus urinae 08/16/22 19:00 Urine Catheter - Gaffney Legionella Antigen - Final 08/16/22 19:00 Urine Catheter - Gaffney Streptococcus pneumoniae Antigen (M - Final Streptococcus pneumonia Ag 08/16/22 13:25 Nasal Secretion SARS-CoV-2 & FLU Antigen (Rapid) - Final Rhythm Strip Rhythm Strip: Sinus Rhythm Physical Exam Narrative Alert and oriented x3. No apparent distress. Sitting in chair. s1s2 no murmurs lung sounds clear abdomen soft pitting edema b/l LE Cardio Cardio Narrative: Has 2+ pitting edema, right more than left Extremity Extremity Narrative: has edema, excoriation ren Assessment & Plan Assessment/Plan (1) Acute kidney injury superimposed on chronic kidney disease: PLAN: No acute indication for [employer]UD[employer] PROF[employer]OR today. Patient dialyzed yesterday. MARIANA secondary to ATN from sepsis. Patient was oliguric. Baseline serum creatinine around 1.5 mg/dL. No noted renal recovery therefore patient is having tunneled HD catheter placed today. Outpatient dialysis arrangements underway. Once outpatient dialysis arrangements confirmed with patient and tunneled HD catheter placed okay for discharge per renal.
--- NOTE | 2022-08-25 11:30 | WOUNDNOTE ---
wound photo: left lower leg
--- NOTE | 2022-08-25 11:30 | WOUNDNOTE ---
wound photo: right lower leg
[2022-08-25 12:40] LABS: Bedside Glucose 116 mg/dL (74-106)
[2022-08-25] MEDS: Cefazolin 1 GM/50 ML BAG IV (13:08)
--- NOTE | 2022-08-25 13:26 | NURSING ---
Called report to PARIS Montiel in [place].
[2022-08-25] MEDS: predniSONE 20 MG Tablet 40 MG PO (15:58)
[2022-08-25] MEDS: Amox/Clavulanate 500 MG Tablet PO (16:00)
--- NOTE | 2022-08-25 16:25 | CASEMGMT ---
PARIS TREVIÑO Follow-up: HD set-up with [facility] confirmed with chair time of T/H/S at 1130 via fax and from Rosario at [facility]. Discussed with Rosario alternate chair times as pt had preferred M/W/F. Chair times for MWF would either be 0545 or 0645. Discussed these chair times with pt who stated her daughter will be transporting her and her daughter has children whose schedules may also influence the selected chair time. Pt discussed options with her daughter and pt decided to keep the THS 1130 schedule unless the MWF could be after 1000. Message left for Rosario at [facility] with pt's decision. Mag Cordero RN CM
[2022-08-25] MEDS: Heparin 10,000 UNITS/10 ML Vial 10000 UNITS (18:55)
[2022-08-25] MEDS: Bupivacaine 0.25%-Epi/Pf 1:200,000 10 ML (18:55)
--- NOTE | 2022-08-25 19:19 | PCM.OPRPT ---
Report of Operation Date of Procedure: 08/25/22 Pre-Operative Diagnosis: Acute on chronic kidney failure Post-Operative Diagnosis: Same Surgery/Procedure Performed:: Insertion of right IJ tunneled dialysis catheter Surgeon: Lisa Evans Type of Anesthesia: MAC/Supplemental Anesthesiologist: Makenna Barajas Special Medications: Ancef 2 g IV x1 Specimen's removed: None Estimated Blood Loss (mL): < 10 cc Description of Procedure: After informed consent was given, the patient was brought to the operating room and placed in the supine position. Appropriate time out protocol was followed. She was then given IV conscious sedation for anesthesia. The patient's [right] upper chest and neck were then prepped with a surgical skin preparation and sterile surgical drapes were placed. After proper landmarks were ascertained, the skin at the upper right chest area was then infiltrated with 1:1 mixture of 1% lidocaine with epinephrine and 0.5% maricaine. A needle trocar was then inserted into the [right] internal jugular vein with ultrasound guidance-multiple vessels were viewed with u/s and the right IJ was chosen-- and there was good aspiration of venous blood. A wire was then threaded into the needle trocar and this was visualized under fluoroscopy to ensure that the wire was in the superior vena cava. Once this was done, then the needle trocar was removed. A small incision was made with an 11 blade knife at the wire entrance site. The dilator x2 with the introducer sheath attached was then placed over the wire into the right internal jugular vein via the Seldinger technique and this was visualized under fluoroscopy. Next the introducer and sheath were in proper position as visualized by fluoroscopy. The location of the cuffed was estimated on the skin, an incision was made with a 15 blade scalpel. The 14.5 Fr x19 cm Palindrome dual lumen (Lot [id number] reference [id number]) was tunneled from the chest incision to the right neck incision. The sheath was removed. The catheter was placed through the introducer and was positioned with its tip at the junction of the superior vena cava and the right atrium as visualized under fluoroscopy. The cuff of the catheter was in the subcutaneous tissue. The catheter flushed and migel well with saline. Catheter was also flushed with 1.6 cc of 1-10,000 of heparin. Hemostasis was assured. Silver dressing was placed at the catheter exit site. Catheter was sutured with 3-0 nylon sutures. The neck incision was sutured with interrupted 3-0 Vicryl interrupted sutures x2 and Steri-Strips were placed. A large OpSite was placed over the catheter site and a small OpSite over the neck incision. The patient tolerated the procedure well. Grafts/Implants Used: 14.5 Fr x19 cm Palindrome dual lumen (Lot [id number] reference [id number]) Complications none
--- NOTE | 2022-08-25 19:48 | NURSING ---
pt brought pack to PCU room 125 from PACU
--- NOTE | 2022-08-25 20:32 | PCM.PN.HOSP ---
Subjective Subjective Patient was seen and examined today, she had a tunneled dialysis catheter placed today, she appears stable at this time, I will reevaluate her in the morning for possible discharge. Objective Data Objective Data Vital Signs: Vital Signs Temp Pulse Resp BP Pulse Ox O2 Del Method O2 Flow Rate 98.2 F 74 18 153/79 H 94 Room Air 2 08/25/22 19:30 08/25/22 20:30 08/25/22 20:30 08/25/22 19:25 08/25/22 19:30 08/25/22 19:44 08/23/22 07:40 FiO2 94 08/18/22 04:00 Oxygen Flow Rate (L/min) 2 Oxygen Delivery Method Room Air Weight: 93.6 kg Body Mass Index (BMI) 37.7 Intake & Output: Intake and Output for Last 24 Hours 08/23/22 08/24/22 08/25/22 23:59 23:59 23:59 Intake Total 1220 / 1220 1120 / 1120 150 / 150 Output Total 0 / 0 0 / 0 Balance 1220 / 1220 1120 / 1120 150 / 150 Lab / Micro Data Result Diagrams: 08/26/22 07:27 08/26/22 07:27 Labs: Laboratory Results - last 24 hr 08/24/22 22:01: POC Glucose 355 H 08/25/22 04:54: WBC 11.1 H, RBC 3.54 L, Hgb 9.5 L, Hct 30.6 L, MCV 86.4, MCH 26.8 L, MCHC 31.0 L, RDW Std Deviation 43.6, RDW Coeff of Mat 13.8, Plt Count 278, MPV 9.3, Immature Gran % (Auto) 1.500 H, Neut % (Auto) 78.5 H, Lymph % (Auto) 13.7 L, [place] % (Auto) 6.0, Eos % (Auto) 0.1, Baso % (Auto) 0.2, Absolute Neuts (auto) 8.7 H, Absolute Lymphs (auto) 1.53, Nucleated RBC % 0 08/25/22 04:54: Sodium 134 L, Potassium 4.8, Chloride 98, Carbon Dioxide 31.0, Anion Gap 5, BUN 32 H, Creatinine 3.52 H, Estim Creat Clear Calc 13.11, Est GFR (MDRD) Af Amer 17 L, Est GFR (MDRD) Non-Af 14 L, BUN/Creatinine Ratio 9.1 L, Glucose 176 H, Calcium 9.0 08/25/22 06:10: POC Glucose 139 H 08/25/22 11:42: POC Glucose 116 H Micro: Microbiology 08/16/22 14:25 Blood Culture (Wb) - Left Forearm Blood Culture - Final No growth in 5 days. 08/16/22 14:15 Blood Culture (Wb) #2 - Anticubital Right Blood Culture - Final No growth in 5 days. 08/16/22 19:00 Urine, Clean Catch Urine Culture - Final Aerococcus urinae 08/16/22 19:00 Urine Catheter - Gaffney Legionella Antigen - Final 08/16/22 19:00 Urine Catheter - Gaffney Streptococcus pneumoniae Antigen (M - Final Streptococcus pneumonia Ag 08/16/22 13:25 Nasal Secretion SARS-CoV-2 & FLU Antigen (Rapid) - Final Rhythm Strip Rhythm Strip: Sinus Rhythm Physical Exam Const alert, oriented x3, no apparent distress and healthy appearing General Appearance: cooperative, well kempt and well developed Orientation / Consciousness: awake, oriented to person, oriented to place and oriented to time HEENT normocephalic, head/scalp atraumatic and moist oral mucous membranes Eyes PERRL, EOMs intact bilaterally and conjunctivae normal Neck supple, no JVD, thyroid normal and no carotid bruits General: trachea midline Resp normal respiratory effort, no retractions, no use of accessory muscles and clear to auscultation bilaterally Auscultation: Negative for rales, rhonchi or wheezes Cardio regular rate, regular rhythm, S1 normal heart sound, S2 normal heart sound, no murmurs, no rub and no gallops GI normal to inspection, nondistended, normoactive bowel sounds, soft to palpation, non-tender and non-distended Extremity no clubbing, cyanosis or edema Skin no rashes or lesions noted General Skin Exam: no breakdown Neuro oriented x3, CN's II-XII intact bilaterally, moves all extremities, no focal motor deficits and no sensory deficits noted Sensorium / Orientation: awake, alert, oriented to person, oriented to place and oriented to time Speech: speech normal Psych affect normal Assessment & Plan Assessment/Plan (1) Uncontrolled diabetes mellitus: QUALIFIERS: Diabetes mellitus type: type 2 Diabetes mellitus intermediate insulin use: unspecified intermediate insulin use status Diabetes mellitus complication status: with unspecified complications Qualified Code(s): E11.8 - Type 2 diabetes mellitus with unspecified complications; E11.65 - Type 2 diabetes mellitus with hyperglycemia PLAN: Plan 1. Acute kidney injury-on a backdrop of chronic kidney disease stage IIIb-nephrology is participating in her care, she will be undergoing outpatient dialysis #2 hyperkalemia-secondary to acute kidney injury-resolved at this time with dialysis #3 acute hypoxic and hypercapnic respiratory failure secondary to streptococcal pneumonia-patient is currently on room air #4 streptococcal pneumonia-complete antibiotic treatment #5 acute metabolic encephalopathy-secondary to acute kidney injury as well as Streptococcus pneumonia with hypoxia-resolved at this time #6 type 2 diabetes-continue to monitor blood sugars, sliding scale insulin was ordered #7 essential hypertension-blood pressure medications have been held at this time, and will need to be reevaluated at the time of her discharge #8 rheumatoid arthritis-patient's rheumatoid drug is held at this time due to her strep pneumonia infection Charges/Coding Visit Charges Inpatient E&M: 28812 Subs Hosp L2
[2022-08-25] MEDS: Pramipexole Di-HCl 0.5 MG Tablet PO (21:36)
[2022-08-25] MEDS: Insulin Lispro 100 UNIT/ML INSULN.PEN SC (21:37)
[2022-08-25] MEDS: Insulin Glargine-YFGN 100 UNIT/ML Pen 19 UNIT SC (21:37)
[2022-08-26] VITALS (8 sets, daily range): BP systolic 152–172; BP diastolic 75–79; PULSE 76–85; RESP 16–20; TEMP 36.7–36.8; O2SAT 93–94
[2022-08-26 02:31] LABS: Bedside Glucose 243 mg/dL (74-106)
[2022-08-26] MEDS: Insulin Lispro 100 UNIT/ML INSULN.PEN SC (06:21)
[2022-08-26] MEDS: hydrALAZINE 20 MG/ML Vial 10 MG IV (06:46)
[2022-08-26] MEDS: Ipratropium/Albuterol Sulfate 3 ML AMPUL.NEB INHALATION (07:12)
[2022-08-26 07:20] LABS: Bedside Glucose 221 mg/dL (74-106)
--- NOTE | 2022-08-26 08:10 | NURSING ---
emergency documentation effective at this time per charge nurse PARIS Rahman
[2022-08-26] MEDS: predniSONE 20 MG Tablet PO (08:23)
[2022-08-26] MEDS: Metoprolol(XL)Succ 25 MG Tablet PO (08:23)
[2022-08-26 08:31] LABS: Absolute Lymphocyte Count 0.97 X10^3/uL (0.83-4.51); Absolute Neutrophil Count 9.5 X10^3/uL (2.0-7.7); Hematocrit 29.4 % (37-47); Hemoglobin 9.4 g/dL (12.0-15.0); Lymphocyte # 0.97 X10^3/ul (0.83-4.51); Lymphocyte % 8.8 % (19-41); Mean Corpuscular Hgb 27.6 pg (27.0-32.0); Mean Corpuscular Volume 86.5 fL (81-99); Mean Platelet Vol. 9.6 fl (6.2-12.0); Monocyte# 0.54 X10^3/uL; Monocyte% 4.9 % (0-10); NRBC Flagged by Analyzer 0 % (0-5); Neutrophil # 9.45 X10^3/uL (2.7-7.7); Neutrophil % 85.2 % (47-70); Platelet Count 276 K/mm3 (150-450); RBC Distribution Width CV 13.8 % (11.6-14.6); RBC Distribution Width SD 43.6 fl (35.1-43.9); White Blood Count 11.1 K/mm3 (4.4-11.0)
[2022-08-26 08:50] LABS: Anion Gap 6 (5-15); BUN 38 mg/dL (7-18); Calcium,Total 8.7 mg/dL (8.5-10.1); Chloride 101 mmol/L (98-107); EST Glomerular Filtration Rate 11 mL/min (>60); Est Glom Filt Rate - Afr Amer 14 mL/min (>60); Estimated Creatinine Clearance 10.98 ml/min; Glucose 200 mg/dL (74-106); Potassium 4.5 mmol/L (3.5-5.1); Sodium Level 138 mmol/L (136-145)
--- NOTE | 2022-08-26 09:09 | PCM.DC ---
Discharge Instructions Diet Discharge Diet: 1800 Calorie Control Diet Activity Discharge Activity: Return to Normal Activity Weight Bearing Status: Full weight bearing Follow Up Care Test Results: Test results from this visit will be discussed in further detail at your follow-up appointment, if applicable. Discharge Plan Admission Admit Date/Time: 08/16/22 15:42 Primary Reason for Your Visit: acute kidney injury, pneumonia Attending Provider: Carlos Silva Primary Care Provider: Eliezer Armando NP Consulting Providers: Kyleigh Chandra ; Wolfgang Erazo ; Kyle Vance ; Paul Grajeda ; Tyrone Funk ; Nara Bae [employer]LECT[employer] TE[employer] ; Eduard Baez ; Jhoana Huynh ; Lisa Evans ; Bc Parker Instructions Additional Instructions / Restrictions: Follow-up with dialysis as scheduled Discharge Orders/Prescriptions Prescriptions: New prednisone 20 mg Tablet 20 mg PO BREAKFAST Qty: 3 0RF Rx Instructions: one daily for 2 days, then 1/2 daily for two days, then stop nicotine 21 mg/24 hr Patch 24 Hour 21 mg transdermal DAILY Qty: 30 0RF Continued atorvastatin 80 mg tablet 40 mg PO QDAY insulin glargine [Lantus U-100 Insulin] 100 unit/mL solution 19 unit SC QHS gabapentin 600 MG tablet 600 mg PO BID Label Comments: FOR NEUROPATHY PAIN Rx Instructions: Take 600mg midday and in the evening lisinopril 10 MG tablet 10 mg PO DAILY Label Comments: BLOOD PRESSURE STATES CURRENTLY TAKING ergocalciferol (vitamin D2) 50,000 UNIT capsule 50,000 unit PO MARTELL Label Comments: SUPPLEMENT takes on sundays duloxetine 60 MG capsule,delayed release(DR/EC) 60 mg PO DAILY Label Comments: STATES HAD YESTERDAY MORNING budesonide-formoterol [Symbicort] 160-4.5 mcg/actuation Hfa Aerosol Inhaler 2 puff INHALATION Q12H albuterol sulfate 2.5 mg/0.5 mL solution for nebulization 2.5 mg inhalation Q2H PRN (Reason: shortness of breath or wheezing) Qty: 30 1RF bupropion HCl 150 mg tablet sustained-release 12 hr 150 mg PO BID Label Comments: take 1 tablet by mouth twice a day leflunomide 20 mg tablet 20 mg PO DAILY Label Comments: take 1 tablet by mouth once daily pramipexole 0.5 mg tablet 0.5 mg PO BID Label Comments: take 1 tablet by mouth at bedtime gabapentin 300 mg capsule 300 mg DAILY Label Comments: take 1 capsule by mouth every morning 2 capsules MIDDAY and 2 capsules at bedtime Rx Instructions: take 300 mg in am metoprolol succinate 25 mg tablet extended release 24 hr 25 mg PO DAILY Label Comments: take 1 tablet by mouth once daily Discontinued spironolactone 50 MG tablet 50 mg PO DAILY Label Comments: STATES STILL TAKING Trulicity 0.75 mg/0.5 mL pen injector 0.75 mg SUBCUT QWEEK Label Comments: inject 0.75 MG SUBCUTANEOUSLY ONE TIME A WEEK DISCARD PEN AFTER USE Rx Instructions: Take every baclofen 10 mg tablet 10 mg PO TID Label Comments: take 1 tablet by mouth three times a day potassium chloride 10 mEq tablet extended release 10 meq PO DAILY Label Comments: take 1 tablet by mouth once daily WITH BREAKFAST - TAKE WITH LASIX furosemide 20 mg tablet 10 mg PO DAILY Label Comments: take 1/2 tablet by mouth once daily pregabalin 50 mg capsule 50 mg PO BID Label Comments: take 1 capsule by mouth twice a day tamsulosin 0.4 MG capsule 0.4 mg PO DAILY Referrals / Follow Up: Eduard Baez MD [Med Staff - Consulting] - Within 2 Weeks Eliezer Amrando NP, NP-C [Primary Care Provider] - Within 2 Weeks Disposition Disposition (needs filled in before D/C Order can be placed): Home, Self Care
--- NOTE | 2022-08-26 09:48 | PCM.DC.SUM ---
Providers Date of Admission: 08/16/22 Date of Discharge: 08/26/22 Primary Care Physician: YA Levy Consultations 08/16/22 17:14 Consult: Field Contact Technician / Pulmonary Medicine Routine Consulting Provider: Pulmonary Medicine ervin Thompson Reason for Consult: acute hypoxic and hypercapnic respiratory failure EMERGENT Consult: No MD Notified: Yes Date Notified: 08/16/22 Time Notified: 17:14 Method of Notification: Text 08/16/22 17:46 Consult: Nephrology Routine Consulting Provider: Eduard Baez Reason for Consult: hyperkalemia EMERGENT Consult: No MD Notified: Yes Date Notified: 08/16/22 Time Notified: 17:46 Method of Notification: ED Physician Initiated 08/17/22 09:23 Consult: Onc/Wound/vehicle monitor technician Routine Comment: Reason for Consult:: Bilateral lower ext non-healing ulcers, follows at wound center 08/24/22 17:36 Consult: General Surgery Routine Consulting Provider: Lisa Evans Reason for Consult: tunneled HD catheter placement EMERGENT Consult: No MD Notified: Yes Date Notified: 08/24/22 Time Notified: 17:36 Method of Notification: Text Reason For Visit: ACUTE HYPOXIC AND HYPERCAPNIC RESPIRATORY Diagnosis Discharge Diagnosis (1) Acute kidney injury superimposed on chronic kidney disease: Status: Chronic Code(s): N17.9 - Acute kidney failure, unspecified; N18.9 - Chronic kidney disease, unspecified Plan 1.? Acute kidney injury-on a backdrop of chronic kidney disease stage IIIb-nephrology is participating in her care, she will be undergoing outpatient dialysis #2 hyperkalemia-secondary to acute kidney injury-resolved at this time with dialysis #3 acute hypoxic and hypercapnic respiratory failure secondary to streptococcal pneumonia-patient is currently on room air #4 streptococcal pneumonia-complete antibiotic treatment #5 acute metabolic encephalopathy-secondary to acute kidney injury as well as Streptococcus pneumonia with hypoxia-resolved at this time #6 type 2 diabetes-continue to monitor blood sugars, sliding scale insulin was ordered #7 essential hypertension-blood pressure medications have been held at this time, and will need to be reevaluated at the time of her discharge #8 rheumatoid arthritis-patient's rheumatoid drug is held at this time due to her strep pneumonia infection Sepsis was ruled out Medications at Discharge Home Medications ergocalciferol (vitamin D2) 1,250 mcg (50,000 unit) capsule 50,000 unit PO MARTELL SUPPLEMENT 02/28/14 gabapentin 600 mg tablet 600 mg PO BID NEUROPATHY 02/28/14 lisinopril 10 mg tablet 10 mg PO DAILY HIGH BLOOD PRESSURE 02/28/14 duloxetine 60 mg capsule,delayed release 60 mg PO DAILY NEUROPATHY 02/17/18 atorvastatin 80 mg tablet 40 mg PO QDAY cholesterol 03/01/18 insulin glargine 100 unit/mL subcutaneous solution (Lantus U-100 Insulin) 19 unit subcut QHS dm 03/01/18 budesonide-formoterol HFA 160 mcg-4.5 mcg/actuation aerosol inhaler (Symbicort) 2 puff inhalation Q12H COPD 01/27/22 albuterol sulfate 2.5 mg/0.5 mL solution for nebulization 2.5 mg (0.5 mL) inhalation Q2H PRN shortness of breath or wheezing #30 ea 01/31/22 bupropion HCl 150 mg tablet,12 hr sustained-release 150 mg PO BID depression 08/16/22 gabapentin 300 mg capsule 300 mg DAILY neuropathy 08/16/22 leflunomide 20 mg tablet 20 mg PO DAILY RA 08/16/22 metoprolol succinate 25 mg tablet,extended release 24 hr 25 mg PO DAILY bp 08/16/22 pramipexole 0.5 mg tablet 0.5 mg PO BID Check with primary doctor 08/16/22 nicotine 21 mg/24 hr daily transdermal patch 21 mg transdermal DAILY #30 ea 08/26/22 prednisone 20 mg tablet 20 mg PO BREAKFAST #3 tabs 08/26/22 Hospital Course Operations None Procedures None Summary of Care Provided Minutes Spent on Discharge: 31 Hospital Course: EXTR 2-year-old male was seen in the emergency room at [facility] with increased shortness of breath x24 hours. Patient was supposed to be wearing CPAP at night but she does not. Patient has no chronic oxygen usage at home. Work-up in the emergency room showed her pulse ox on room air to be 87%, she was hypotensive upon arrival to the ER, and she was placed on BiPAP due to a pH of 7.1 and a PCO2 of 54. Creatinine was elevated at 3.83, chest x-ray showed a right upper lobe pneumonia, she was started on levofloxacin and Rocephin, she was admitted to the ICU and seen by critical care. Patient underwent dialysis and was treated with IV antibiotics, she was eventually moved to PCU, she was seen by general surgery who inserted a tunneled dialysis catheter. On 08/26/2022, patient was seen and examined: On examination she appeared in good health and spirits, she does not appear to be in any distress. Vital signs as documented. Skin warm and dry and without overt rashes. Neck without JVD, thyroid appears normal, trachea is midline, neck is supple. Lungs clear, normal air movement was noted. Heart exam notable for regular rhythm, normal sounds and absence of murmurs, rubs or gallops. Abdomen unremarkable and without evidence of organomegaly, masses, or abdominal aortic enlargement, bowel sounds are present in all 4 quadrants, no abdominal tenderness was noted. Extremities nonedematous, no cyanosis was noted, no clubbing was noted. Neuro: Cranial nerves II through XII are grossly intact, no focal motor deficits were noted, sensation to light touch and pinprick is intact, motor exam 5/5 throughout. Psych: Patient is alert and oriented x3, she does not appear anxious or depressed, she does not appear agitated. Patient was discharged home on 08/26/2022 in stable condition. She was instructed by nephrology not to resume her lisinopril at home. Weight / BMI Weight Weight: 92.8 kg Body Mass Index (BMI) 37.7 ABG / Lab / Microbiology Data Result Diagrams: 08/26/22 07:27 08/26/22 07:27 Laboratory: Laboratory Results - last 24 hr 08/25/22 11:42: POC Glucose 116 H 08/25/22 21:33: POC Glucose 243 H 08/26/22 06:19: POC Glucose 221 H 08/26/22 07:27: WBC 11.1 H, RBC 3.40 L, Hgb 9.4 L, Hct 29.4 L, MCV 86.5, MCH 27.6, MCHC 32.0, RDW Std Deviation 43.6, RDW Coeff of Mat 13.8, Plt Count 276, MPV 9.6, Immature Gran % (Auto) 1.100 H, Neut % (Auto) 85.2 H, Lymph % (Auto) 8.8 L, [place] % (Auto) 4.9, Eos % (Auto) 0.0, Baso % (Auto) 0.0, Absolute Neuts (auto) 9.5 H, Absolute Lymphs (auto) 0.97, Nucleated RBC % 0 08/26/22 07:27: Sodium 138, Potassium 4.5, Chloride 101, Carbon Dioxide 31.0, Anion Gap 6, BUN 38 H, Creatinine 4.20 H, Estim Creat Clear Calc 10.98, Est GFR (MDRD) Af Amer 14 L, Est GFR (MDRD) Non-Af 11 L, BUN/Creatinine Ratio 9.0 L, Glucose 200 H, Calcium 8.7 Microbiology: Microbiology 08/16/22 14:25 Blood Culture (Wb) - Left Forearm Blood Culture - Final No growth in 5 days. 08/16/22 14:15 Blood Culture (Wb) #2 - Anticubital Right Blood Culture - Final No growth in 5 days. 08/16/22 19:00 Urine, Clean Catch Urine Culture - Final Aerococcus urinae 08/16/22 19:00 Urine Catheter - Gaff[place] Legionella Antigen - Final 08/16/22 19:00 Urine Catheter - G[place] Streptococcus pneumoniae Antigen (M - Final Streptococcus pneumonia Ag 08/16/22 13:25 Nasal Secretion SARS-CoV-2 & FLU Antigen (Rapid) - Final D/C Instructions Discharge Diet: 1800 Calorie Control Diet Weight Bearing Status: Full weight bearing Meaningful Use Info Meaningful Use Diagnoses (Choose all that apply): None applicable Discharge Plan Admission Admit Date/Time: 08/16/22 15:42 Primary Reason for Your Visit: acute kidney injury, pneumonia Attending Provider: Carlos Silva Primary Care Provider: Eliezer Armando NP Consulting Providers: Kyleigh Chandra ; Wolfgang Erazo ; Kyle Vance ; Paul Grajeda ; Tyrone Funk ; Nara Bae EMPLOYMENT OFFICE CLERK ; Eduard Baez ; Jhoana Huynh ; Lisa Evans ; Bc Parker Instructions Additional Instructions / Restrictions: Follow-up with dialysis as scheduled Discharge Orders/Prescriptions Prescriptions: New prednisone 20 mg Tablet 20 mg PO BREAKFAST Qty: 3 0RF Rx Instructions: one daily for 2 days, then 1/2 daily for two days, then stop nicotine 21 mg/24 hr Patch 24 Hour 21 mg transdermal DAILY Qty: 30 0RF Continued atorvastatin 80 mg tablet 40 mg PO QDAY insulin glargine [Lantus U-100 Insulin] 100 unit/mL solution 19 unit SC QHS gabapentin 600 MG tablet 600 mg PO BID Label Comments: FOR NEUROPATHY PAIN Rx Instructions: Take 600mg midday and in the evening lisinopril 10 MG tablet 10 mg PO DAILY Label Comments: BLOOD PRESSURE STATES CURRENTLY TAKING ergocalciferol (vitamin D2) 50,000 UNIT capsule 50,000 unit PO MARTELL Label Comments: SUPPLEMENT takes on sundays duloxetine 60 MG capsule,delayed release(DR/EC) 60 mg PO DAILY Label Comments: STATES HAD YESTERDAY MORNING budesonide-formoterol [Symbicort] 160-4.5 mcg/actuation Hfa Aerosol Inhaler 2 puff INHALATION Q12H albuterol sulfate 2.5 mg/0.5 mL solution for nebulization 2.5 mg inhalation Q2H PRN (Reason: shortness of breath or wheezing) Qty: 30 1RF bupropion HCl 150 mg tablet sustained-release 12 hr 150 mg PO BID Label Comments: take 1 tablet by mouth twice a day leflunomide 20 mg tablet 20 mg PO DAILY Label Comments: take 1 tablet by mouth once daily pramipexole 0.5 mg tablet 0.5 mg PO BID Label Comments: take 1 tablet by mouth at bedtime gabapentin 300 mg capsule 300 mg DAILY Label Comments: take 1 capsule by mouth every morning 2 capsules MIDDAY and 2 capsules at bedtime Rx Instructions: take 300 mg in am metoprolol succinate 25 mg tablet extended release 24 hr 25 mg PO DAILY Label Comments: take 1 tablet by mouth once daily Discontinued spironolactone 50 MG tablet 50 mg PO DAILY Label Comments: STATES STILL TAKING Trulicity 0.75 mg/0.5 mL pen injector 0.75 mg SUBCUT QWEEK Label Comments: inject 0.75 MG SUBCUTANEOUSLY ONE TIME A WEEK DISCARD PEN AFTER USE Rx Instructions: Take every baclofen 10 mg tablet 10 mg PO TID Label Comments: take 1 tablet by mouth three times a day potassium chloride 10 mEq tablet extended release 10 meq PO DAILY Label Comments: take 1 tablet by mouth once daily WITH BREAKFAST - TAKE WITH LASIX furosemide 20 mg tablet 10 mg PO DAILY Label Comments: take 1/2 tablet by mouth once daily pregabalin 50 mg capsule 50 mg PO BID Label Comments: take 1 capsule by mouth twice a day tamsulosin 0.4 MG capsule 0.4 mg PO DAILY Referrals / Follow Up: [facility] [Other] - 08/27/22 11:00 am (Hemodialysis [facility], Sat at 1110) Eduard Baez MD [Med Staff - Consulting] - Within 2 Weeks Eliezer Armando NP, EMPLOYMENT OFFICE CLERK-C [Primary Care Provider] - 09/14/22 2:20 pm (This appt is at [address] [place] [phone] not in the [place] office) Disposition Disposition (needs filled in before D/C Order can be placed): Home, Self Care Charges/Coding Visit Charges Inpatient E&M: 50939 Disch Hosp
--- NOTE | 2022-08-26 09:59 | CASEMGMT ---
PARIS TREVIÑO called [facility] to check on status of referral. Per Josiah, they are not able to accept patient at this time. PARIS TREVIÑO reviewed therapy notes, patient independent and no therapy recommended at discharge. Patient is currently on room air. PARIS TREVIÑO in to discuss discharge needs with patient, patient denies needs for HHC at this time. Patient is scheduled for outpatient HD on TTS at 1130 with start of care 08/27/[address] [facility]. PARIS TREVIÑO updated patient. Patient had no further questions or concerns at this time.
--- NOTE | 2022-08-26 10:43 | WOUNDNOTE ---
Pt being discharged home. does not want dressing changed prior to going home. states she plans on showering when she gets home. pt very appreciative of care.
== END 2022-08-26 11:31 | disposition home or self-care (01) | DRG 133 ==
LOC: ED 15:27 → ICU 15:56 → PCU 08-19 09:28
PROVIDERS: Internal Medicine; Internal Medicine Nephrology; Surgery; Admitting Provider Student in an Organized Health Care Education/Training Program; Emergency Provider Emergency Medicine; PCP Nurse Practitioner Primary Care; Visit Provider Internal Medicine
PROC: 02HV33Z Insertion of Infusion Device into Superior Vena Cava, Percutaneous Approach (ICD-10-PCS; principal; 2022-08-25 14:45)
DX: J96.01 Acute respiratory failure with hypoxia (principal); J69.0 Pneumonitis due to inhalation of food and vomit; G93.41 Metabolic encephalopathy; J44.0 Chronic obstructive pulmonary disease with (acute) lower respiratory infection; J13 Pneumonia due to Streptococcus pneumoniae; E87.29 Other acidosis; E11.22 Type 2 diabetes mellitus with diabetic chronic kidney disease; Z99.2 Dependence on renal dialysis; N17.9 Acute kidney failure, unspecified; J96.22 Acute and chronic respiratory failure with hypercapnia; Z79.4 Long term (current) use of insulin; J44.1 Chronic obstructive pulmonary disease with (acute) exacerbation; E11.40 Type 2 diabetes mellitus with diabetic neuropathy, unspecified; E11.622 Type 2 diabetes mellitus with other skin ulcer; E11.42 Type 2 diabetes mellitus with diabetic polyneuropathy; E11.65 Type 2 diabetes mellitus with hyperglycemia; L97.911 Non-pressure chronic ulcer of unspecified part of right lower leg limited to breakdown of skin; E11.21 Type 2 diabetes mellitus with diabetic nephropathy; N18.32 Chronic kidney disease, stage 3b; M06.9 Rheumatoid arthritis, unspecified; I12.9 Hypertensive chronic kidney disease with stage 1 through stage 4 chronic kidney disease, or unspecified chronic kidney disease; G25.81 Restless legs syndrome; E78.00 Pure hypercholesterolemia, unspecified; F17.200 Nicotine dependence, unspecified, uncomplicated; E78.5 Hyperlipidemia, unspecified; E87.5 Hyperkalemia; G47.33 Obstructive sleep apnea (adult) (pediatric); Z79.51 Long term (current) use of inhaled steroids; G89.29 Other chronic pain; Z79.52 Long term (current) use of systemic steroids; Z91.199 Patient's noncompliance with other medical treatment and regimen due to unspecified reason
CPT/HCPCS: 36415; 36600; 71045; 76770; 77001; 80048; 80053; 80069; 80076; 81001; 82009; 82803; 82962; 83036; 83605; 83735; 83880; 84100; 84132; 84484; 85025; 87040; 87077; 87086; 87088; 87340; 87428; 87449; 90937; 93005; 93971; 94002; 94003; 94640; 94762; 97110; 97116; 97162; 97166; 97530; 97535; 97802; 97803; 99285; 99406; J7030; J7050; 90686; A4216; C1750; C1752; G0257; J0610; J0696

== ENCOUNTER 2022-10-29 10:03 | Outpatient (RCR) | payer MEDICAID, SELFPAY ==
[2022-10-29 10:24] VITALS: BP 109/73; PULSE 90; RESP 20; TEMP 36.3; BMI 32.9
--- NOTE | 2022-10-29 12:34 | PCM.WC.HP ---
History of Present Illness Date of Service: 10/29/22 Chief Complaint: Non healing right lower extremity ulcer History of Wound: Ms. Hernandez is a 62yo who presents to the wound center due to non healing right lower extremity ulcers. Initially noted about 2-3 months ago. Started out as a blister which progressively worsened and subsequently opened up. She attempted to care for it at home with ointment and gauze however, there has been no significant change in size. History of type 2 diabetes mellitus currently on insulin and Trulicity and most recent A1c is said to be at 6.8. No chills, fever or feeling of unwell. [facility] Medical History (Updated 10/29/22 @ 12:[address] Mateo Kennedy MD) Anxiety and depression Arthritis Breast lump Cancer Chronic pain Colon cancer COPD (chronic obstructive pulmonary disease) Depression High cholesterol HTN (hypertension) Neuropathy Recurrent UTI Rheumatic fever Rheumatoid arthritis Seasonal allergies Sleep apnea Smoker Smoker Type 2 diabetes mellitus Ulcer of right lower extremity with fat layer exposed Uterine cancer Venous insufficiency of both lower extremities Vision problem Vitamin deficiency Home Medications ergocalciferol (vitamin D2) 1,250 mcg (50,000 unit) capsule 50,000 unit PO MARTELL SUPPLEMENT 02/28/14 [History Last Taken 01/25/22] gabapentin 600 mg tablet 600 mg PO BID NEUROPATHY 02/28/14 [History Last Taken 02/26/21] lisinopril 10 mg tablet 10 mg PO DAILY HIGH BLOOD PRESSURE 02/28/14 [History Last Taken 01/27/22 08:00] duloxetine 60 mg capsule,delayed release 60 mg PO DAILY NEUROPATHY 02/17/18 [History Last Taken 01/27/22 08:00] atorvastatin 80 mg tablet 40 mg PO QDAY cholesterol 03/01/18 [History Last Taken 01/27/22 18:00] insulin glargine 100 unit/mL subcutaneous solution (Lantus U-100 Insulin) 19 unit subcut QHS dm 03/01/18 [History Last Taken 01/26/22] budesonide-formoterol HFA 160 mcg-4.5 mcg/actuation aerosol inhaler (Symbicort) 2 puff inhalation Q12H COPD 01/27/22 [History Last Taken 01/26/22 18:00] albuterol sulfate 2.5 mg/0.5 mL solution for nebulization 2.5 mg (0.5 mL) inhalation Q2H PRN shortness of breath or wheezing #30 ea 01/31/22 [Rx Last Taken Unknown] bupropion HCl 150 mg tablet,12 hr sustained-release 150 mg PO BID depression 08/16/22 [History Last Taken Unknown] gabapentin 300 mg capsule 300 mg DAILY neuropathy 08/16/22 [History Last Taken Unknown] leflunomide 20 mg tablet 20 mg PO DAILY RA 08/16/22 [History Last Taken Unknown] metoprolol succinate 25 mg tablet,extended release 24 hr 25 mg PO DAILY bp 08/16/22 [History Last Taken Unknown] pramipexole 0.5 mg tablet 0.5 mg PO BID Check with primary doctor 08/16/22 [History Last Taken Unknown] nicotine 21 mg/24 hr daily transdermal patch 21 mg transdermal DAILY #30 ea 08/26/22 [Rx Last Taken Unknown] prednisone 20 mg tablet 20 mg PO BREAKFAST #3 tabs 08/26/22 [Rx Last Taken Unknown] Allergy/AdvReac Type Severity Reaction Status Date / Time clindamycin Allergy Swelling Verified 10/29/22 10:46 metformin AdvReac Nausea Verified 10/29/22 10:46 Family History Father Arthritis Cancer Diabetes Heart disease Hypertension Mother Hypertension Sister Arthritis Lupus Daughter Kidney stones Surgical History Bowel obstruction History of hysterectomy for cancer tumer removed from colon Social History household members: family Smoking Status: Current every day smoker tobacco type: cigarettes alcohol intake: never substance use type: does not use ROS Constitutional Constitutional: Denies change in weight, daytime sleepiness, excessive sweating, fever(s), malaise, night sweats, poor appetite or stops breathing during sleep Eyes Eyes: Denies blind spots, blurry vision, change in vision, discharge from eye(s), discongugate gaze, erythema, loss of central vision or loss of peripheral vision ENT HEENT: Denies disequillibrium, dizziness, dry mouth, dysphagia or hoarseness Cardiovascular Cardiovascular: Denies abdominal pain, arrhythmia on telemetry, chest pain, claudication, cold extremities, cyanosis or diaphoresis Respiratory/Chest Respiratory/Chest: Denies chest congestion, cough, dusky skin, excessive phlegm production, hemoptysis, hoarseness or inability to speak Gastrointestinal Gastrointestinal: Denies abdominal pain, change in bowel habits, change in stool character, coffee ground emesis, dry heaves, dysphagia, early satiety or excessive flatus Genitourinary Genitourinary: Denies anuria, difficulty urinating, dysuria, flank pain or oliguria Musculoskeletal Musculoskeletal: Denies abnormal gait, atrophy, loss of height, muscle cramps, muscle spasms, myalgias, numbness or radiating pain into limb Integumentary Integumentary: Denies bleeding lesions, change in pigmentation, dry skin, jaundice, nail changes, pruritus or rash Neurologic Neurologic: Denies disequilibrium, dizziness, focal weakness, frequent falls, headache(s), lack of coordination or loss of vision Psychiatric Psychiatric: Reports anxiety; Denies auditory hallucinations, behavioral changes, cognitive impairment, confusion, depression or irritability Endocrine Endocrinology: Denies change in body appearance, deepening of the voice, excessive sweating, flushing, heat intolerance, increase in ring/shoe/hat size or palpitations Hematologic/Lymphatic Hematologic/Lymphatic: Denies easy bleeding Allergic/Immunologic Allergic/Immunologic: Denies itchy eyes, lip swelling, seasonal rhinorrhea, rhinitis, throat swelling, tongue swelling or hives Vital Signs Vital Signs Vital Signs: 10/29/22 10:24 Temperature 97.4 F L Temperature Source Temporal Pulse Rate 90 Respiratory Rate 20 H Blood Pressure 109/73 Blood Pressure Mean 85 Blood Pressure Source Monitor Weight Weight: 185 lb 13.683 oz Body Mass Index (BMI) 32.9 Physical Exam Const alert, oriented x3 and no apparent distress General Appearance: cooperative, comfortable and well kempt HEENT normocephalic, head/scalp atraumatic and hearing grossly normal bilaterally Eyes EOMs intact bilaterally General Eye: normal appearance of both eyes Neck full ROM and supple General: normal visual inspection Resp normal respiratory effort and normal air movement Effort and Inspection: able to speak in complete sentences Cardio regular rate, regular rhythm, S1 normal heart sound and S2 normal heart sound GI soft to palpation, non-tender and non-distended Extremity General Extremity: edema Neuro oriented x3, CN's II-XII intact bilaterally and moves all extremities Psych mental status grossly normal, thought process normal, cooperative and affect normal Debridement Note Debridement Note Wound debrided: Right Lower Extremity Ulcer Type of Debridement: Excisional debridement Anesthesia Used: 4% Lidocaine Solution Depth: Down to and including healthy tissue and in the subcutaneous layer Percentage of wound debrided: 100 Instrument Used: 5mm curette Tissue Removed: Slough and devitalized tissue Severity: Fat Layer Exposed Amount of bleeding with debridement: Mild Bleeding Controlled with: Pressure Patient tolerated procedure: Patient tolerated procedure well Post-Debridement Measurements and Additional Note: Post-Debridement Measurements/Treatment - Nurse 1 - General Ulcer Assessment Start: 10/29/22 10:20 Freq: Status: Active Protocol: ALEXANDER Activity Type Activity Date Activity User E-sign Co-sign Detail Recorded Client Recorded Date Recorded By Document 10/29/22 10:24 DL [id number] 10/29/22 10:41 DL 10/29/22 10:24 - Today's Visit Information Type of service Initial Visit Arrival Mode Ambulatory Transfer Assistance None Patient Identification Verified (Name & Yes ) Patient Requires Transmission-Based No Precautions Finger Stick Blood Sugar(mg/dl) (if didnt check indicated): Height and Weight Height 5 ft 3 in Weight 185 lb 13.683 oz Weight in Pounds 185.9 lbs Body Mass Index (BMI) 32.9 BMI Classification Obese BSA - [place] 1.87 Vital Signs Temperature (97.8 F-99.1 F) 97.4 F L Temperature Source Temporal Pulse Rate (60-100) 90 Pulse Location Monitor Respiratory Rate (12-18) 20 H Respiratory rate source Observation Blood Pressure (90/60-120/80) 109/73 Blood Pressure Mean 85 Source Monitor History Since Last Visit- (Skip if this is Patient's initial visit) Left Footwear Regular Shoe Right Footwear Regular Shoe Pain Scale: 0-10 Numeric Is Patient Pain Free? Yes Lower Extremity Assessment/ Foot Assessment/ Toe Nail Assessment Left -Popliteal Doppler Multiphasic -Posterior Tibial Palpable Yes -Posterior Tibial Doppler Multiphasic -Dorsalis Pedis Palpable Yes -Extremity Color Hemosiderin -Hair Growth on Legs No -Hair Growth on Toes No -Temperature of Extremity Warm -Capillary Refill Greater than 3 Seconds -Dependent Rubor No -Blanched when Elevated No -Lipodermatosclerosis No -Other Deformity No -Prior Foot Ulcer No -Charcot Joint No -Prior Amputation No -Thick Yes -Discolored Yes -Deformed Yes -Improper Length & Hygeine Yes Right -Popliteal Doppler Multiphasic -Posterior Tibial Palpable Yes -Posterior Tibial Doppler Multiphasic -Dorsalis Pedis Palpable Yes -Extremity Color Hemosiderin -Hair Growth on Legs No -Hair Growth on Toes No -Temperature of Extremity Warm -Capillary Refill Greater than 3 Seconds -Dependent Rubor No -Blanched when Elevated No -Lipodermatosclerosis No -Other Deformity No -Prior Foot Ulcer No -Charcot Joint No -Prior Amputation No -Thick Yes -Discolored Yes -Deformed Yes -Improper Length & Hygeine Yes Neuropathy Assessment Feet - Top Side and Bottom <Entered> (a) Communication Assessment Preferred language [place] Able to Read Yes Able to Write Yes Communication Tools None Right Hearing Abillity Normal Left Hearing Abillity Normal Visual Assistive Devices Glasses Teaching Assessment Preferences Verbal,Written, Demonstration Barriers to Learning None Readiness To Learn Good Willingness to Engage in Self Management Med Activies Readiness to Engage in Self Management Med Activities Anxiety Level Calm Cooperation Cooperative Perception Coherent Interest in Health Problem Asks Questions Education Importance Acknowledges Need Does Patient Smoke tobacco or other Yes substances Smoking Status Current every day smoker Is Patient Diabetic Yes Functional Assessment Recent Decline in Ability to Perform Denies Any Declines Culture/Restorationism/Category Development Manager Cultural/Restorationism Needs that may affect No Treatment Plan Would you allow our hospital yarding and folding machine operator to No meet you for the purpose of spiritual/ emotional support? Teaching: Wound Center Dressing Your Wound -Person Taught Patient Discharge Instructions -Person Taught Patient *Welcome to the Wound Center -Person Taught Patient (a) 1 - _ 2 - + 3 - + WC - Nurse 1 - General Ulcer Measurement Start: 10/29/22 10:20 Freq: Status: Active Protocol: Activity Type Activity Date Activity User E-sign Co-sign Detail Recorded Client Recorded Date Recorded By Document 10/29/22 10:24 DL [id number] 10/29/22 10:41 DL 10/29/22 10:24 Wound Center Nurse 1 #1 R Cohen -Current Size (cm) - Length 2.1 -Current Size (cm) - Width 3 -Current Size (cm) - Depth 0.1 -Total Square Cm 6.3 -Photo Taken Yes -Classification - Thickness Full Thickness without Exposed Support Structure -Exudate Amt Small -Exudate Type Serosanguineous -Wound Margin Distinct, Outline Attached -Granulation Amt Medium (34-66%) -Granulation Quality [place] -Necrosis Amt Medium (34-66%) -Necrotic Tissue Type Adherent Slough -Structure Exposed N/A -Texture (Nicole-wound Skin Appearance) Localized Edema ,Scarring -Moisture (Nicole-wound Skin Appearance) Dry/Scaly -Color (Nicole-wound Skin Appearance) Hemosiderin Staining -Temperature (Nicole-wound Skin No Abnormality Appearance) (Pt Warm) -Tenderness on Palpation (Nicole-wound No Skin Appearance) -Ulcer Cleansing Rinsed/ Irrigated with Saline -Foul Odor after Cleansing No -Anesthetic Used 5% Lidocaine Gel WC - Nurse 2 - General Ulcer CM Notes Start: 10/29/22 10:20 Freq: Status: Active Protocol: Activity Type Activity Date Activity User E-sign Co-sign Detail Recorded Client Recorded Date Recorded By Document 10/29/22 10:59 MW [id number] 10/29/22 11:05 MW 10/29/22 10:59 Wound Center Nurse 2 -Time 10:59 -Correct Patient Yes -Correct Side, Site, Position Yes -Correct Procedure Yes -Procedure Performed Yes -Type of Procedure Debridement -Clinical Debridement Subcutaneous -Tissue Removed Subcutaneous -Post Debridement (cm) - Length 2.5 -Post Debridement (cm) - Width 3.2 -Post Debridement (cm) - Depth 0.1 -Total Square (Post) (cm) 8.00 -Area of Debridement (cm) - Length 2.5 -Area of Debridement (cm) - Width 3.2 -Total Square (Area) (cm) 8.00 -Tunneling No -Undermining/Tunneling No -Circular Undermining No -Wound/Ulcer Outcome Not Healed -Ulcer Cleansing Rinsed/ Irrigated with Saline -Foul Odor after Cleansing No -Bioengineered Tissue No -Bleeding Controlled with Pressure -Treatment Response Procedure Tolerated Well -Offloading No -Debridement - Subq, 1st 20sq cm Yes Pain Scale: 0-10 Numeric Is Patient Pain Free? Yes - Nurse 3 - General Ulcer D/C NN Start: 10/29/22 10:20 Freq: Status: Active Protocol: Activity Type Activity Date Activity User E-sign Co-sign Detail Recorded Client Recorded Date Recorded By Document 10/29/22 11:20 BM [id number] 10/29/22 11:22 [facility] 10/29/22 11:20 Wound Care Center Nurse 3 #1 R Cohen -Ulcer Cleansing Rinsed/ Irrigated with Saline -Foul Odor after Cleansing No -Primary Dressing Applied Aquacel Extra -Other Dressing ABD; DRSG PER DL DISASTER RECOVERY CONSULTANT -Primary Dressing Covered/Secured with Dry Gauze & Roll Gauze, Secured with Tape -Aquacel Extra 1 BLE -Compression Wrap Nelson Wrap -Tubular Bandage Double Layer -Size of Tubigrip Used Size E -Size E ($) 2 Treatment Response Procedure Tolerated Well Pain Scale: 0-10 Numeric Is Patient Pain Free? Yes WC - Visit Discharge Discharge Condition Stable Ambulatory Status Ambulatory Transportation Private Auto Charges/Coding Visit Charges Office Visits / Consults: 32906 OV L3 Est Procedures Integumentary [id number]: [id number] Margaret subq tissue 20 sq cm/< Assessment/Plan Assessment/Plan (1) Ulcer of right lower extremity with fat layer exposed: CODE(S): L97.912 - Non-pressure chronic ulcer of unspecified part of right lower leg with fat layer exposed (2) Venous insufficiency of both lower extremities: CODE(S): I87.2 - Venous insufficiency (chronic) (peripheral) (3) Type 2 diabetes mellitus: CODE(S): E11.9 - Type 2 diabetes mellitus without complications (4) Tobacco dependence: CODE(S): F17.200 - Nicotine dependence, unspecified, uncomplicated PLAN: Plan Debridement done as documented above, procedure was well-tolerated. Cultures taken, will review. For now Aquacel extra daily, cover with gauze and ABD. Tubigrip and Nelson wrap for edema management. Leg elevation, exercise as tolerated and compliance with compression strongly recommended. Vitamin C, D and zinc also discussed, patient voiced understanding. Diabetes control seems to be good with an A1c of 6.8, continue Trulicity and insulin. Her questions were answered and she was advised to call with any further questions or concerns. Follow-up in a week or sooner if needed. This note was generated with [employer] software. It may contain incorrect words, spelling, and punctuation that were not noted in checking the note before signing.
== END 2022-11-27 23:59 | disposition home or self-care (01) ==
LOC: WC 10:03
PROVIDERS: PCP Nurse Practitioner Primary Care; Visit Provider Internal Medicine
DX: L97.912 Non-pressure chronic ulcer of unspecified part of right lower leg with fat layer exposed (principal); J44.9 Chronic obstructive pulmonary disease, unspecified; E11.40 Type 2 diabetes mellitus with diabetic neuropathy, unspecified; E11.59 Type 2 diabetes mellitus with other circulatory complications; Z79.4 Long term (current) use of insulin; Z79.51 Long term (current) use of inhaled steroids; I87.2 Venous insufficiency (chronic) (peripheral); E78.00 Pure hypercholesterolemia, unspecified; G89.29 Other chronic pain; R60.0 Localized edema; I10 Essential (primary) hypertension; Z79.52 Long term (current) use of systemic steroids
CPT/HCPCS: 11042; 87070; 87075; 87077; 87186; 87205; 99213; G0463

== ENCOUNTER 2023-02-16 17:57 | Emergency (ER) | payer MEDICAID, SELFPAY ==
[2023-02-16 17:57] VITALS: BP 121/71; PULSE 102; RESP 18; TEMP 36.4; O2SAT 95; BMI 33.7
--- NOTE | 2023-02-16 18:15 | EDS_ITS ---
HPI History of Present Illness Chief Complaint: Edema Informant: patient Onset/Context/Timing Onset: Yesterday Narrative Narrative: [place] with swelling and pain to her forehead. She noted what she thought was a pimple between her eyes 2 days ago. She was picking at it but not able to get any drainage from it. Yesterday the area was slightly swollen but more so today. She thought she may have some chills this afternoon but has not measured a fever. PFSH PFS Medical History Anxiety and depression Arthritis Breast lump Cancer Chronic pain Colon cancer COPD (chronic obstructive pulmonary disease) Depression High cholesterol HTN (hypertension) Neuropathy Recurrent UTI Rheumatic fever Rheumatoid arthritis Seasonal allergies Sleep apnea Smoker Smoker Type 2 diabetes mellitus Ulcer of right lower extremity with fat layer exposed Uterine cancer Venous insufficiency of both lower extremities Vision problem Vitamin deficiency Home Medications ergocalciferol (vitamin D2) 1,250 mcg (50,000 unit) capsule 50,000 unit PO MARTELL S UPPLEMENT 02/28/14 [History Last Taken 01/25/22] gabapentin 600 mg tablet 600 mg PO BID NEUROPATHY 02/28/14 [History Last Taken 02/26/21] lisinopril 10 mg tablet 10 mg PO DAILY HIGH BLOOD PRESSURE 02/28/14 [History Last Taken 01/27/22 08:00] duloxetine 60 mg capsule,delayed release 60 mg PO DAILY NEUROPATHY 02/17/18 [History Last Taken 01/27/22 08:00] atorvastatin 80 mg tablet 40 mg PO QDAY cholesterol 03/01/18 [History Last Taken 01/27/22 18:00] insulin glargine 100 unit/mL subcutaneous solution (Lantus U-100 Insulin) 19 unit subcut QHS dm 03/01/18 [History Last Taken 01/26/22] budesonide-formoterol HFA 160 mcg-4.5 mcg/actuation aerosol inhaler (Symbicort) 2 puff inhalation Q12H COPD 01/27/22 [History Last Taken 01/26/22 18:00] albuterol sulfate 2.5 mg/0.5 mL solution for nebulization 2.5 mg (0.5 mL) inhalation Q2H PRN shortness of breath or wheezing #30 ea 01/31/22 [Rx Last Taken Unknown] bupropion HCl 150 mg tablet,12 hr sustained-release 150 mg PO BID depression 08/16/22 [History Last Taken Unknown] gabapentin 300 mg capsule 300 mg DAILY neuropathy 08/16/22 [History Last Taken Unknown] leflunomide 20 mg tablet 20 mg PO DAILY RA 08/16/22 [History Last Taken Unknown] metoprolol succinate 25 mg tablet,extended release 24 hr 25 mg PO DAILY bp 08/16/22 [History Last Taken Unknown] pramipexole 0.5 mg tablet 0.5 mg PO BID Check with primary doctor 08/16/22 [History Last Taken Unknown] nicotine 21 mg/24 hr daily transdermal patch 21 mg transdermal DAILY #30 ea 08/26/22 [Rx Last Taken Unknown] prednisone 20 mg tablet 20 mg PO BREAKFAST #3 tabs 08/26/22 [Rx Last Taken Unknown] doxycycline monohydrate 100 mg capsule 100 mg PO BID #20 CAPSULES 02/16/23 [Rx Last Taken Unknown] Allergy/AdvReac Type Severity Reaction Status Date / Time clindamycin Allergy Swelling Verified 01/04/23 13:00 metformin AdvReac Nausea Verified 01/04/23 13:00 Family History Father Arthritis Cancer Diabetes Heart disease Hypertension Mother Hypertension Sister Arthritis Lupus Daughter Kidney stones Surgical History Bowel obstruction History of hysterectomy for cancer tumer removed from colon Social History household members: family Smoking Status: Current every day smoker tobacco type: cigarettes alcohol intake: never substance use type: does not use ROS ROS ED Constitutional Constitutional ED: Denies chills or fever(s) Eyes Eyes: Denies change in vision or discharge from eye(s) ENT ENT ED: Reports other Details: Eyelid edema. Swelling to the mid forehead. ; Denies discharge from eye(s), rhinorrhea or sore throat Cardiovascular Cardiovascular: Denies chest pain or palpitations Respiratory/Chest Respiratory/Chest: Denies cough or dyspnea Gastrointestinal Gastrointestinal: Denies abdominal pain, nausea or vomiting Genitourinary Genitourinary ED: Denies dysuria Musculoskeletal Musculoskeletal: Denies back pain or extremity pain Integumentary Denies Abrasions or rash Neurologic Neurologic: Denies headache(s) or weakness Psychiatric Psychiatric: Denies anxiety or depression Allergic/Immunologic Allergic/Immunologic ED: Denies lip swelling or urticaria EXAM Physical Exam Const Vital Signs: 02/16/23 17:57 Temperature 97.5 F L Temperature Source Temporal Pulse Rate 102 H Respiratory Rate 18 Blood Pressure 121/71 H Blood Pressure Mean 87 Pulse Ox 95 Oxygen Delivery Method Room Air Positive well nourished and well developed General Appearance ED: well developed HEENT Reports moist mucous membranes HEENT Narrative: Cutaneous abscess noted to the lower mid forehead. Small scabbed lesion noted. Area is firm and indurated but no fluctuance at this time. Eyes PERRL and EOMs intact bilaterally Eyes Narrative: Slight edema noted to the bilateral upper eyelids. Neck no lymphadenopathy Chest Wall inspection of chest normal and palpation of chest normal Resp normal respiratory effort and clear to auscultation bilaterally Cardio regular rate and regular rhythm Extremity normal to inspection Psych mental status grossly normal MDM MDM MDM Narrative Medical decision making narrative: Patient has evidence of a cutaneous abscess that is still firm and indurated. I do not believe I&D is needed at this time. She will be started on doxycycline. She has a history of chronic kidney disease we will avoid Bactrim. She also has an allergy to clindamycin. She was advised that she should use warm compresses and in spite of this she may require I&D if the area becomes more fluctuant. She voices understanding and agreement. Discharge Plan Triage Chief Complaint: Edema ED Provider: Alisson Lombardi Dx/Rx/DC Orders Clinical Impression: Cutaneous abscess Instructions: ED Abscess Antibiotic Treatment Only Prescriptions: New doxycycline monohydrate 100 mg capsule 100 mg PO BID Qty: 20 0RF No Action atorvastatin 80 mg tablet 40 mg PO QDAY insulin glargine [Lantus U-100 Insulin] 100 unit/mL solution 19 unit SC QHS gabapentin 600 MG tablet 600 mg PO BID Label Comments: FOR NEUROPATHY PAIN Rx Instructions: Take 600mg midday and in the evening lisinopril 10 MG tablet 10 mg PO DAILY Label Comments: BLOOD PRESSURE STATES CURRENTLY TAKING ergocalciferol (vitamin D2) 50,000 UNIT capsule 50,000 unit PO MARTELL Label Comments: SUPPLEMENT takes on sundays duloxetine 60 MG capsule,delayed release(DR/EC) 60 mg PO DAILY Label Comments: STATES HAD YESTERDAY MORNING budesonide-formoterol [Symbicort] 160-4.5 mcg/actuation Hfa Aerosol Inhaler 2 puff INHALATION Q12H albuterol sulfate 2.5 mg/0.5 mL solution for nebulization 2.5 mg inhalation Q2H PRN (Reason: shortness of breath or wheezing) Qty: 30 1RF bupropion HCl 150 mg tablet sustained-release 12 hr 150 mg PO BID Label Comments: take 1 tablet by mouth twice a day leflunomide 20 mg tablet 20 mg PO DAILY Label Comments: take 1 tablet by mouth once daily pramipexole 0.5 mg tablet 0.5 mg PO BID Label Comments: take 1 tablet by mouth at bedtime gabapentin 300 mg capsule 300 mg DAILY Label Comments: take 1 capsule by mouth every morning 2 capsules MIDDAY and 2 capsules at bedtime Rx Instructions: take 300 mg in am metoprolol succinate 25 mg tablet extended release 24 hr 25 mg PO DAILY Label Comments: take 1 tablet by mouth once daily prednisone 20 mg Tablet 20 mg PO BREAKFAST Qty: 3 0RF Rx Instructions: one daily for 2 days, then 1/2 daily for two days, then stop nicotine 21 mg/24 hr Patch 24 Hour 21 mg transdermal DAILY Qty: 30 0RF Primary Care Provider: Eliezer Armando NP Referrals: Eliezer Armando NP, AQUACULTURE DIRECTOR-C [Primary Care Provider] - 1 Week Disposition Disposition: Home, Self Care
[2023-02-16] MEDS: Doxycycline 100 MG CAPSULE PO (18:26)
== END 2023-02-16 18:28 | disposition home or self-care (01) ==
LOC: ED 18:21
PROVIDERS: Emergency Provider Emergency Medicine; PCP Nurse Practitioner Primary Care; Visit Provider Emergency Medicine
DX: L02.01 Cutaneous abscess of face (principal); M06.9 Rheumatoid arthritis, unspecified; J44.9 Chronic obstructive pulmonary disease, unspecified; E11.22 Type 2 diabetes mellitus with diabetic chronic kidney disease; E11.40 Type 2 diabetes mellitus with diabetic neuropathy, unspecified; Z79.4 Long term (current) use of insulin; N18.9 Chronic kidney disease, unspecified; E78.00 Pure hypercholesterolemia, unspecified; I12.9 Hypertensive chronic kidney disease with stage 1 through stage 4 chronic kidney disease, or unspecified chronic kidney disease; Z79.899 Other long term (current) drug therapy; Z79.51 Long term (current) use of inhaled steroids; F32.A Depression, unspecified; Z90.710 Acquired absence of both cervix and uterus; F17.210 Nicotine dependence, cigarettes, uncomplicated
CPT/HCPCS: 99283

== ENCOUNTER 2023-02-21 13:31 | Emergency (ER) | payer MEDICAID, SELFPAY ==
[2023-02-21 13:32] VITALS: BP 140/77; PULSE 92; RESP 15; TEMP 36.7; O2SAT 97; BMI 33.6
[2023-02-21 13:37] VITALS: BP 161/78; PULSE 92; RESP 15; TEMP 36.8; O2SAT 97
--- NOTE | 2023-02-21 13:44 | EDS_ITS ---
HPI <PARISH Everett - Last Filed: 02/21/23 14:55> History of Present Illness Chief Complaint: Edema Narrative Narrative: Patient presents with pain and swelling to her forehead. On 02/14 she noticed a pimple at the top of the bridge of her nose and picked at it. Over the next 2 days it became red and enlarged. She was seen here on 02/16 and prescribed doxycycline. Despite taking it over the last 5 days the area has not changed at all although it's not worsening. She has no fever or chills. She is diabetic states her blood sugars are well controlled below 120. PFS <PARISH Everett - Last Filed: 02/21/23 14:55> COUNTS INCLUDE 234 BEDS AT THE [facility] Medical History Anxiety and depression Arthritis Breast lump Cancer Chronic pain Colon cancer COPD (chronic obstructive pulmonary disease) Depression High cholesterol HTN (hypertension) Neuropathy Recurrent UTI Rheumatic fever Rheumatoid arthritis Seasonal allergies Sleep apnea Smoker Smoker Type 2 diabetes mellitus Ulcer of right lower extremity with fat layer exposed Uterine cancer Venous insufficiency of both lower extremities Vision problem Vitamin deficiency Home Medications ergocalciferol (vitamin D2) 1,250 mcg (50,000 unit) capsule 50,000 unit PO MARTELL SUPPLEMENT 02/28/14 [History Last Taken 01/25/22] gabapentin 600 mg tablet 600 mg PO BID NEUROPATHY 02/28/14 [History Last Taken 02/26/21] lisinopril 10 mg tablet 10 mg PO DAILY HIGH BLOOD PRESSURE 02/28/14 [History Last Taken 01/27/22 08:00] duloxetine 60 mg capsule,delayed release 60 mg PO DAILY NEUROPATHY 02/17/18 [History Last Taken 01/27/22 08:00] atorvastatin 80 mg tablet 40 mg PO QDAY cholesterol 03/01/18 [History Last Taken 01/27/22 18:00] insulin glargine 100 unit/mL subcutaneous solution (Lantus U-100 Insulin) 19 unit subcut QHS dm 03/01/18 [History Last Taken 01/26/22] budesonide-formoterol HFA 160 mcg-4.5 mcg/actuation aerosol inhaler (Symbicort) 2 puff inhalation Q12H COPD 01/27/22 [History Last Taken 01/26/22 18:00] albuterol sulfate 2.5 mg/0.5 mL solution for nebulization 2.5 mg (0.5 mL) inhalation Q2H PRN shortness of breath or wheezing #30 ea 01/31/22 [Rx Last Taken Unknown] bupropion HCl 150 mg tablet,12 hr sustained-release 150 mg PO BID depression 08/16/22 [History Last Taken Unknown] gabapentin 300 mg capsule 300 mg DAILY neuropathy 08/16/22 [History Last Taken Unknown] leflunomide 20 mg tablet 20 mg PO DAILY RA 08/16/22 [History Last Taken Unknown] metoprolol succinate 25 mg tablet,extended release 24 hr 25 mg PO DAILY bp 08/16/22 [History Last Taken Unknown] pramipexole 0.5 mg tablet 0.5 mg PO BID Check with primary doctor 08/16/22 [History Last Taken Unknown] nicotine 21 mg/24 hr daily transdermal patch 21 mg transdermal DAILY #30 ea 08/26/22 [Rx Last Taken Unknown] prednisone 20 mg tablet 20 mg PO BREAKFAST #3 tabs 08/26/22 [Rx Last Taken Unknown] doxycycline monohydrate 100 mg capsule 100 mg PO BID #20 CAPSULES 02/16/23 [Rx Last Taken Unknown] levofloxacin 500 mg tablet 500 mg PO DAILY #7 tabs 02/21/23 [Rx Last Taken Unknown] Allergy/AdvReac Type Severity Reaction Status Date / Time clindamycin Allergy Swelling Verified 02/21/23 13:38 metformin AdvReac Nausea Verified 02/21/23 13:38 Family History Father Arthritis Cancer Diabetes Heart disease Hypertension Mother Hypertension Sister Arthritis Lupus Daughter Kidney stones Surgical History Bowel obstruction History of hysterectomy for cancer tumer removed from colon Social History household members: family Smoking Status: Current every day smoker tobacco type: cigarettes alcohol intake: never substance use type: does not use ROS <PARISH Everett - Last Filed: 02/21/23 14:55> ROS ED ROS Narrative Constitutional: Negative for fever, chills, malaise. GI: Negative for nausea, vomiting. Skin: Positive for redness. EXAM <PARISH Everett - Last Filed: 02/21/23 14:55> Physical Exam Narrative Exam Narrative: CONST: Patient sitting in no acute distress. EYES: Normal inspection. NECK: Normal inspection. RESP: No respiratory distress, CTAB. CVS: Regular rate and rhythm, no murmur, no gallop. SKIN: Round red indurated area in right mid-forehead above the bridge of the nose. No drainage, no lymphangitic streaking. EXTREMITIES: Normal appearance, no pedal edema. NEURO: Oriented x4. PSYCH: Normal affect. Const Vital Signs: 02/21/23 13:32 02/21/23 13:37 02/21/23 14:57 Temperature 98.1 F 98.3 F Temperature Source Temporal Oral Pulse Rate 92 92 82 Respiratory Rate 15 15 16 Blood Pressure 140/77 H 161/78 H 132/68 H Blood Pressure Mean 98 105 Pulse Ox 97 97 98 Oxygen Delivery Method Room Air Room Air <Dr. Sanford Jaquez MD - Last Filed: 02/21/23 15:03> Physical Exam Const Vital Signs: 02/21/23 13:32 02/21/23 13:37 02/21/23 14:57 Temperature 98.1 F 98.3 F Temperature Source Temporal Oral Pulse Rate 92 92 82 Respiratory Rate 15 15 16 Blood Pressure 140/77 H 161/78 H 132/68 H Blood Pressure Mean 98 105 Pulse Ox 97 97 98 Oxygen Delivery Method Room Air Room Air MDM <PARISH Everett - Last Filed: 02/21/23 14:55> MDM MDM Narrative Medical decision making narrative: History gathered from: Patient and family member Patient has cellulitis/swelling on her forehead that is not improved on 5 days of doxycycline. She appears well and nontoxic and is afebrile with normal vital signs. The red circular area in her mid forehead feels indurated. Bedside ultrasound does not show clear pocket of fluid. Attending performed bedside needle aspiration with no material expressed. Plan will be to switch patient to Rocephin IM shot here and Levaquin at home. At this point its not worsening and she is not febrile having systemic symptoms so does not require admission. She was counseled on return precautions and discharged in stable condition. Differential: Cellulitis, abscess <Dr. Sanford Jaquez MD - Last Filed: 02/21/23 15:03> [facility] Treatment and Re-Evaluation Comments:: Seen and evaluated independently and in conjunction with physician night assistant. Agree with notes above unless documented otherwise. Infected pimple that is not getting better on 5 days of antibiotics, but not necessarily worse. No systemic symptoms. Exam: Swollen erythematous area with induration, fluctuance, almost pointing mid forehead near the top of the nose. No spontaneous discharge expressible. Needle aspiration attempted see procedure note, there is no purulent discharge. We will change her antibiotics to one that will cover strep better, and in addition she was given Rocephin IM here. Given lack of purulence less likely MRSA which she was relatively well covered for prior. <Dr. Sanford Jaquez MD - Last Filed: 02/21/23 15:03> Other Procedures Procedure(s): Abscess aspiration: Forehead abscess ultrasounded, appears somewhat ambiguous, with a couple areas that look like they may be collections but not well developed. Patient amenable to attempted aspiration although may be unsuccessful. Prepped with isopropanol followed by Betadine, and topical freeze spray followed by attempted aspiration with a 21-gauge needle into different directions, no purulent discharge able to be aspirated, dressed with bandage, no complications tolerated well. Discharge Plan Triage Chief Complaint: Edema ED Midlevel Provider: Dunia Martin ED Provider: Sanford Jaquez Dx/Rx/DC Orders Clinical Impression: Cellulitis of face Instructions: ED Cellulitis Prescriptions: New levofloxacin 500 mg tablet 500 mg PO DAILY Qty: 7 0RF No Action atorvastatin 80 mg tablet 40 mg PO QDAY insulin glargine [Lantus U-100 Insulin] 100 unit/mL solution 19 unit SC QHS gabapentin 600 MG tablet 600 mg PO BID Label Comments: FOR NEUROPATHY PAIN Rx Instructions: Take 600mg midday and in the evening lisinopril 10 MG tablet 10 mg PO DAILY Label Comments: BLOOD PRESSURE STATES CURRENTLY TAKING ergocalciferol (vitamin D2) 50,000 UNIT capsule 50,000 unit PO MARTELL Label Comments: SUPPLEMENT takes on sundays duloxetine 60 MG capsule,delayed release(DR/EC) 60 mg PO DAILY Label Comments: STATES HAD YESTERDAY MORNING budesonide-formoterol [Symbicort] 160-4.5 mcg/actuation Hfa Aerosol Inhaler 2 puff INHALATION Q12H albuterol sulfate 2.5 mg/0.5 mL solution for nebulization 2.5 mg inhalation Q2H PRN (Reason: shortness of breath or wheezing) Qty: 30 1RF bupropion HCl 150 mg tablet sustained-release 12 hr 150 mg PO BID Label Comments: take 1 tablet by mouth twice a day leflunomide 20 mg tablet 20 mg PO DAILY Label Comments: take 1 tablet by mouth once daily pramipexole 0.5 mg tablet 0.5 mg PO BID Label Comments: take 1 tablet by mouth at bedtime gabapentin 300 mg capsule 300 mg DAILY Label Comments: take 1 capsule by mouth every morning 2 capsules MIDDAY and 2 capsules at bedtime Rx Instructions: take 300 mg in am metoprolol succinate 25 mg tablet extended release 24 hr 25 mg PO DAILY Label Comments: take 1 tablet by mouth once daily prednisone 20 mg Tablet 20 mg PO BREAKFAST Qty: 3 0RF Rx Instructions: one daily for 2 days, then 1/2 daily for two days, then stop nicotine 21 mg/24 hr Patch 24 Hour 21 mg transdermal DAILY Qty: 30 0RF doxycycline monohydrate 100 mg capsule 100 mg PO BID Qty: 20 0RF Primary Care Provider: Eliezer Armando NP Referrals: Eliezer Armando NP, [facility] [Primary Care Provider] - Activity Restrictions/Additional Instructions: I switched your antibiotic to Levaquin which hopefully clears up the infection. If you develop a fever or redness spreads or worsens come back to the ER. If the area starts to feel soft like it may have fluid inside please get reevaluated.
[2023-02-21] MEDS: Ondansetron ODT 4 MG Tablet PO (13:54)
[2023-02-21] MEDS: HYDROcodone Bitartrate/Apap 5/325 Tablet PO (13:54)
[2023-02-21] MEDS: Ceftriaxone 500 MG Vial IM (14:44)
[2023-02-21 14:57] VITALS: BP 132/68; PULSE 82; RESP 16; O2SAT 98
== END 2023-02-21 15:00 | disposition home or self-care (01) ==
PROVIDERS: Emergency Provider Emergency Medicine; PCP Nurse Practitioner Primary Care; Visit Provider Emergency Medicine
DX: L03.211 Cellulitis of face (principal); M06.9 Rheumatoid arthritis, unspecified; J44.9 Chronic obstructive pulmonary disease, unspecified; E11.40 Type 2 diabetes mellitus with diabetic neuropathy, unspecified; Z79.4 Long term (current) use of insulin; E78.00 Pure hypercholesterolemia, unspecified; I10 Essential (primary) hypertension; Z79.899 Other long term (current) drug therapy; Z79.51 Long term (current) use of inhaled steroids; F32.A Depression, unspecified; Z90.710 Acquired absence of both cervix and uterus; F17.210 Nicotine dependence, cigarettes, uncomplicated
CPT/HCPCS: 96372; 99283

== ENCOUNTER 2023-04-28 11:00 | Outpatient (RCR) | payer MEDICAID, SELFPAY ==
[2022-11-28 00:42] VITALS: BP 109/73; PULSE 90; RESP 20; TEMP 36.3; BMI 32.9
[2023-04-05 10:08] VITALS: BP 110/91; PULSE 80; RESP 16; TEMP 35.8; BMI 33.6
--- NOTE | 2023-04-05 12:08 | PCM.WC.HP ---
History of Present Illness Date of Service: 04/05/23 Chief Complaint: Non healing right lower extremity ulcer History of Wound: 62yo female who presents to the wound center due to non healing right lower extremity ulcers. She has had the ulcer for about 6 months. She was initially seen at the wound center October 2022, but she needed hemodialysis and it was too difficult to make the wound center appointments. The ulcer started out as a blister which progressively worsened and subsequently opened up. She attempted to care for it at home with A&D ointment and gauze however, there has been no significant change in size. History of type 2 diabetes mellitus currently on insulin and Trulicity and most recent A1c is said to be at 6.8. She also has a history of HTN, colon cancer, uterine cancer, COPD, AKD, tobacco abuse. She sees Dr. Braswell, vascular surgeon at [facility]. She states she has not had vascular studies done with Dr. Braswell. She was instructed to wear compression stockings, but when they became too tight, she could no longer wear then. She denies fever, chill, or feeling of unwell. Progress of Wound: Right leg ulcer cluster is superficial. There is significant amount of slough present. +3 edema. [facility] Medical History (Reviewed 04/05/23 @ 17:29 by Uma Sears FIELD LOGISTICS COORDINATOR, FIELD LOGISTICS COORDINATOR-C) Anxiety and depression Arthritis Breast lump Cancer Chronic pain Colon cancer COPD (chronic obstructive pulmonary disease) Depression High cholesterol HTN (hypertension) Neuropathy Recurrent UTI Rheumatic fever Rheumatoid arthritis Seasonal allergies Sleep apnea Smoker Smoker Type 2 diabetes mellitus Ulcer of right lower extremity with fat layer exposed Uterine cancer Venous insufficiency of both lower extremities Vision problem Vitamin deficiency Home Medications ergocalciferol (vitamin D2) 1,250 mcg (50,000 unit) capsule 50,000 unit PO MARTELL SUPPLEMENT 02/28/14 [History Last Taken 01/25/22] gabapentin 600 mg tablet 600 mg PO BID NEUROPATHY 02/28/14 [History Last Taken 02/26/21] duloxetine 60 mg capsule,delayed release 60 mg PO DAILY NEUROPATHY 02/17/18 [History Last Taken 01/27/22 08:00] atorvastatin 80 mg tablet 40 mg PO QDAY cholesterol 03/01/18 [History Last Taken 01/27/22 18:00] insulin glargine 100 unit/mL subcutaneous solution (Lantus U-100 Insulin) 19 unit subcut QHS dm 03/01/18 [History Last Taken 01/26/22] budesonide-formoterol HFA 160 mcg-4.5 mcg/actuation aerosol inhaler (Symbicort) 2 puff inhalation Q12H COPD 01/27/22 [History Last Taken 01/26/22 18:00] bupropion HCl 150 mg tablet,12 hr sustained-release 150 mg PO BID depression 08/16/22 [History Last Taken Unknown] gabapentin 300 mg capsule 300 mg PO DAILY neuropathy 08/16/22 [History Last Taken Unknown] metoprolol succinate 25 mg tablet,extended release 24 hr 25 mg PO DAILY bp 08/16/22 [History Last Taken Unknown] pramipexole 0.5 mg tablet 0.5 mg PO QHS Check with primary doctor 08/16/22 [History Last Taken Unknown] nicotine 21 mg/24 hr daily transdermal patch 21 mg transdermal DAILY #30 ea 08/26/22 [Rx Last Taken Unknown] albuterol sulfate 90 mcg/actuation aerosol inhaler (ProAir HFA) 2 inh inhalation Q4H PRN shortness of breath or wheezing 04/05/23 [History Last Taken Unknown] dulaglutide 0.75 mg/0.5 mL subcutaneous pen injector (Trulicity) 0.75 mg subcut QWEEK 04/05/23 [History Last Taken Unknown] furosemide 20 mg tablet (Lasix) 20 mg PO DAILY 04/05/23 [History Last Taken Unknown] pregabalin 25 mg capsule (Lyrica) 25 mg PO BID 04/05/23 [History Last Taken Unknown] spironolactone 25 mg tablet (Aldactone) 25 mg PO DAILY 04/05/23 [History Last Taken Unknown] tamsulosin 0.4 mg capsule (Flomax) 0.4 mg PO DAILY 04/05/23 [History Last Taken Unknown] Allergy/AdvReac Type Severity Reaction Status Date / Time clindamycin Allergy Swelling Verified 04/05/23 10:25 metformin AdvReac Nausea Verified 04/05/23 10:25 Family History (Reviewed 04/05/23 @ 17:29 by Uma Sears FIELD LOGISTICS COORDINATOR, FIELD LOGISTICS COORDINATOR-C) Father Arthritis Cancer Diabetes Heart disease Hypertension Mother Hypertension Sister Arthritis Lupus Daughter Kidney stones Surgical History (Reviewed 04/05/23 @ 17:29 by Uma Sears FIELD LOGISTICS COORDINATOR, FIELD LOGISTICS COORDINATOR-C) Bowel obstruction History of hysterectomy for cancer tumer removed from colon Social History household members: family Smoking Status: Current every day smoker tobacco type: cigarettes alcohol intake: never substance use type: does not use ROS Constitutional Constitutional: Denies chills or fever(s) Eyes Eyes: Reports as per HPI and other Details: macular degeneration ENT HEENT: Reports none Cardiovascular Cardiovascular: Reports edema; Denies chest pain or dyspnea Respiratory/Chest Respiratory/Chest: Denies dyspnea Gastrointestinal Gastrointestinal: Reports diarrhea, nausea and vomiting Musculoskeletal Musculoskeletal: Reports systems reviewed and no addt'l complaints, except as documented Integumentary Integumentary: Reports skin ulcer Neurologic Neurologic: Reports burning sensations and numbness Psychiatric Psychiatric: Reports none Endocrine Endocrinology: Reports none Vital Signs Vital Signs Vital Signs: 04/05/23 10:08 Temperature 96.4 F L Temperature Source Temporal Pulse Rate 80 Respiratory Rate 16 Blood Pressure 110/91 H Blood Pressure Mean 97 Blood Pressure Source Monitor Blood Pressure Position Sitting Blood Pressure Location Right Arm Oxygen Delivery Method Room Air Weight Weight: 190 lb Body Mass Index (BMI) 33.6 Physical Exam Const alert, oriented x3 and no apparent distress General Appearance: cooperative, comfortable and well kempt HEENT normocephalic Head and Scalp: atraumatic Eyes General Eye: normal appearance of both eyes Neck full ROM Resp normal respiratory effort, normal air movement and clear to auscultation bilaterally Effort and Inspection: able to speak in complete sentences Cardio regular rate and regular rhythm Peripheral Pulses: dorsalis pedis pulses present GI normal to inspection, nondistended, normoactive bowel sounds, soft to palpation and non-tender Back/Spine normal ROM Extremity full ROM and normal capillary refill General Extremity: edema bilateral lower extremity Details: moderate Peripheral Pulses: Yes dorsalis pedis pulses present bilateral 2+ Skin Wound Narrative: Right lower leg ulcer cluster is superficial with non viable tissue present. Neuro oriented x3 Psych mental status grossly normal and cooperative Debridement Note Debridement Note Wound debrided: lower extremity ulcer cluster Laterality: Right Wound Grade/Stage: Stage III Type of Debridement: Excisional debridement Anesthesia Used: 5% Lidocaine Gel Depth: Down to and including healthy tissue and in the subcutaneous layer Percentage of wound debrided: 100 Instrument Used: 5mm curette Tissue Removed: Nonviable tissue and slough Severity: Fat Layer Exposed Amount of bleeding with debridement: Mild Bleeding Controlled with: Pressure and Compression and gauze Patient tolerated procedure: Patient tolerated procedure well Post-Debridement Measurements and Additional Note: Post-Debridement Measurements/Treatment - Nurse 1 - General Ulcer Assessment Start: 04/05/23 10:08 Freq: Status: Active Protocol: GIA.LOWEXAlysia Activity Type Activity Date Activity User E-sign Co-sign Detail Recorded Client Recorded Date Recorded By Document 04/05/23 10:08 [facility] [id number] 04/05/23 10:21 [facility] 04/05/23 10:08 - Today's Visit Information Type of service Initial Visit Arrival Mode Ambulatory, Walker Transfer Assistance None Patient Identification Verified (Name & Yes ) Patient Requires Transmission-Based No Precautions Finger Stick Blood Sugar(mg/dl) (if 63 indicated): Blood Sugar Stated by Patient Height and Weight Height 5 ft 3 in Weight 190 lb Weight in Pounds 190.0 lbs Weight Measurement Method Stated by Patient Body Mass Index (BMI) 33.6 BMI Classification Obese BSA - Emerson 1.89 Vital Signs Temperature (97.8 F-99.1 F) 96.4 F L Temperature Source Temporal Pulse Rate (60-100) 80 Pulse Location Monitor Respiratory Rate (12-18) 16 Respiratory rate source Observation Oxygen Delivery Method Room Air Blood Pressure (90/60-120/80) 110/91 H Blood Pressure Mean 97 Source Monitor Position Sitting Blood Pressure Location Right Arm History Since Last Visit- (Skip if this is Patient's initial visit) Left Footwear Regular Shoe Right Footwear Regular Shoe Pain Scale: 0-10 Numeric Is Patient Pain Free? Yes Lower Extremity Assessment/ Foot Assessment/ Toe Nail Assessment Right -Lower Extremity Comment (If N/A Above SEES VASCULAR ) DR BRASWELL @ [facility] -Posterior Tibial Doppler Monophasic -Dorsalis Pedis Doppler Monophasic -Extremity Color Red -Hair Growth on Legs No -Hair Growth on Toes No -Temperature of Extremity Warm -Other Deformity No -Prior Foot Ulcer No -Charcot Joint No -Prior Amputation No -Thick Yes -Discolored No -Deformed No -Improper Length & Hygeine No Left -Lower Extremity Comment (If N/A Above SEES DR BRASWELL ) VASCULAR AT [facility] EN -Posterior Tibial Doppler Monophasic -Dorsalis Pedis Doppler Monophasic -Hair Growth on Legs No -Hair Growth on Toes No -Temperature of Extremity Warm -Capillary Refill Less than 3 Seconds -Other Deformity No -Prior Foot Ulcer No -Charcot Joint No -Prior Amputation No -Thick Yes -Discolored No -Deformed No -Improper Length & Hygeine No Communication Assessment Preferred language Macanese Poultry Veterinarian Required No Able to Read Yes Able to Write Yes Communication Tools None Right Hearing Abillity Normal Left Hearing Abillity Normal Visual Assistive Devices Glasses Teaching Assessment Preferences Verbal,Written, Audio/Visual, Demonstration Barriers to Learning None Readiness To Learn Excellent Willingness to Engage in Self Management High Activies Readiness to Engage in Self Management High Activities Anxiety Level Calm Cooperation Cooperative Perception Coherent Interest in Health Problem Asks Questions Education Importance Acknowledges Need Does Patient Smoke tobacco or other No substances Smoking Status Current every day smoker Is Patient Diabetic Yes Functional Assessment Recent Decline in Ability to Perform Denies Any Declines Culture/Muslim/Palliative Care Nurse Cultural/Muslim Needs that may affect No Treatment Plan Teaching: Wound Center *Welcome to the Wound Center -Person Taught Patient -Teaching Method Discussion -Response to teaching Verbalize understanding Welcome to the Wound Care Center Mac[place] WC - Nurse 1 - General Ulcer Measurement Start: 04/05/23 10:08 Freq: Status: Active Protocol: Activity Type Activity Date Activity User E-sign Co-sign Detail Recorded Client Recorded Date Recorded By Document 04/05/23 10:08 [facility] [id number] 04/05/23 10:21 [facility] 04/05/23 10:08 Wound Center Nurse 1 #3- R MED LE CLUSTER -Combined with other wound No -Current Size (cm) - Length 4.7 -Current Size (cm) - Width 4.7 -Current Size (cm) - Depth 0.1 -Total Square Cm 22.09 -Date of Last Picture (Recall this 04/05/23 field) -Photo Taken Yes -Epithelialization None Present -Tunneling No -Undermining/Tunneling No -Circular Undermining No -Exudate Amt Medium -Exudate Type Serosanguineous -Wound Margin Distinct, Outline Attached -Granulation Amt Small (1-33%) -Granulation Quality Red -Slough/Fibrin Yes -Necrosis Amt Large (67-100%) -Necrotic Tissue Type Adherent Slough -Texture (Nicole-wound Skin Appearance) Assessed, Scarring -Moisture (Nicole-wound Skin Appearance) Assessed, Maceration -Color (Nicole-wound Skin Appearance) Assessed, Erythema -Temperature (Nicole-wound Skin No Abnormality Appearance) (Pt Warm) -Tenderness on Palpation (Nicole-wound Yes Skin Appearance) -Ulcer Cleansing Rinsed/ Irrigated with Saline -Foul Odor after Cleansing No -Anesthetic Used 4% Lidocaine Solution #2- R leg CLUSTER -Combined with other wound No -Date of Last Picture (Recall this 04/05/23 field) -Photo Taken Yes -Epithelialization None Present -Tunneling No -Undermining/Tunneling No -Circular Undermining No -Exudate Amt Medium -Exudate Type Serosanguineous -Wound Margin Distinct, Outline Attached -Granulation Amt Small (1-33%) -Granulation Quality Red -Slough/Fibrin Yes -Necrosis Amt Large (67-100%) -Necrotic Tissue Type Adherent Slough -Texture (Nicole-wound Skin Appearance) Assessed, Scarring -Moisture (Nicole-wound Skin Appearance) Assessed, Maceration -Color (Nicole-wound Skin Appearance) Assessed, Erythema -Temperature (Nicole-wound Skin No Abnormality Appearance) (Pt Warm) -Tenderness on Palpation (Nicole-wound No Skin Appearance) -Ulcer Cleansing Soap and Water -Foul Odor after Cleansing No -Anesthetic Used 4% Lidocaine Solution Lower Limb Edema Present Yes Right Calf (cm) 43 Right Ankle (cm) 26.5 Left Calf (cm) 40.3 Left Ankle (cm) 26.8 WC - Nurse 2 - General Ulcer CM Notes Start: 04/05/23 10:08 Freq: Status: Active Protocol: Activity Type Activity Date Activity User E-sign Co-sign Detail Recorded Client Recorded Date Recorded By Document 04/05/23 10:44 [id number] 04/05/23 11:03 [facility] 04/05/23 10:44 Wound Center Nurse 2 #3- R MED LE CLUSTER -Time 10:44 -Correct Patient Yes -Correct Side, Site, Position Yes -Correct Procedure Yes -Procedure Performed Yes -Type of Procedure Debridement -Clinical Debridement Subcutaneous -Tissue Removed Subcutaneous -Tunneling No -Undermining/Tunneling No -Circular Undermining No -Wound/Ulcer Outcome Not Healed -Ulcer Cleansing Rinsed/ Irrigated with Saline -Foul Odor after Cleansing No -Bioengineered Tissue No -Bleeding Controlled with Pressure -Treatment Response Procedure Tolerated Well -Offloading No -Debridement - Subq, 1st 20sq cm No #2- R leg CLUSTER -Time 10:45 -Correct Patient Yes -Correct Side, Site, Position Yes -Correct Procedure Yes -Procedure Performed Yes -Type of Procedure Debridement -Clinical Debridement Subcutaneous -Tissue Removed Subcutaneous -Post Debridement (cm) - Length 9.5 -Post Debridement (cm) - Width 13.5 -Post Debridement (cm) - Depth 0.1 -Total Square (Post) (cm) 128.25 -Area of Debridement (cm) - Length 9.5 -Area of Debridement (cm) - Width 13.5 -Total Square (Area) (cm) 128.25 -Tunneling No -Undermining/Tunneling No -Circular Undermining No -Wound/Ulcer Outcome Not Healed -Ulcer Cleansing Rinsed/ Irrigated with Saline -Foul Odor after Cleansing No -Bioengineered Tissue No -Bleeding Controlled with Pressure -Treatment Response Procedure Tolerated Well -Offloading No -Debridement - Subq, 1st 20sq cm Yes -Debridement, SubQ, ea addt'l 20sq cm 6 or part thereof Pain Scale: 0-10 Numeric Is Patient Pain Free? Yes - Nurse 3 - General Ulcer D/C NN Start: 04/05/23 10:08 Freq: Status: Active Protocol: Activity Type Activity Date Activity User E-sign Co-sign Detail Recorded Client Recorded Date Recorded By Document 04/05/23 11:07 [facility] [id number] 04/05/23 11:10 [facility] 04/05/23 11:07 Wound Care Center Nurse 3 #2- R leg CLUSTER -Ulcer Cleansing Rinsed/ Irrigated with Saline -Foul Odor after Cleansing No -Primary Dressing Applied Silvercel -Other Dressing ABD, PER KW BULB WEEDER -Primary Dressing Covered/Secured with Dry Gauze & Roll Gauze, Secured with Tape -Silvercel 1 BLE -Tubular Bandage Double Layer -Size of Tubigrip Used Size E -Size E ($) 2 Treatment Response Procedure Tolerated Well Pain Scale: 0-10 Numeric Is Patient Pain Free? Yes WC - Visit Discharge Discharge Condition Stable Ambulatory Status Ambulatory, Walker Transportation Private Auto Charges/Coding Visit Charges Office Visits / Consults: 46846 OV L3 Est (25 modifier) Procedures Integumentary [id number]: [id number] Margaret subq tissue 20 sq cm/< Add On Codes: 30824 Margaret subq tissue add-on (x4) Assessment/Plan Assessment/Plan (1) Ulcer of right lower extremity with fat layer exposed: CODE(S): L97.912 - Non-pressure chronic ulcer of unspecified part of right lower leg with fat layer exposed (2) Venous insufficiency of both lower extremities: CODE(S): I87.2 - Venous insufficiency (chronic) (peripheral) (3) Type 2 diabetes mellitus: CODE(S): E11.9 - Type 2 diabetes mellitus without complications (4) Tobacco dependence: CODE(S): F17.200 - Nicotine dependence, unspecified, uncomplicated PLAN: Plan Patient evaluated at the wound healing center today. Wound care - Silver alginate covered with ABD daily. Compression - Tubigrip for compression. Will order venous and arterial studies since she has not had any recently. Encouraged patient to stop smoking as it may have deleterious effects on wound healing. Follow up one week. Greater than 25 minutes spent evaluating, plan of care, education and documenting.
--- NOTE | 2023-04-12 12:02 | WC ---
Uma Sears STEEL CONSTRUCTION WORKER notified me to inform patient that she had several bacteria that grew out of her wound culture. Uma will be calling in 2 antibiotics, Augmentin and Levaquin. Called patient and let her know about the positive wound cultures and to start the ATB's once available. Stressed to her the importance of cleaning the ulcer with soap and water and to provide herself with good hand hygiene pre and post wound dressings. She verbalized understanding. Her Silvercel sheet got contaminated so she was informed to keep ulcer clean and dry with ABD pads until she is seen on here at wound center.
[2023-04-21 11:24] VITALS: BP 106/42; PULSE 82; RESP 20; TEMP 36.4; BMI 33.6
--- NOTE | 2023-04-21 12:12 | PCM.WC.PN ---
History of Present Illness Date of Service: 04/21/23 Chief Complaint: Non healing right lower extremity ulcer History of Wound: 63 yo female who presents to the wound center due to non healing right lower extremity ulcers. She has had the ulcer for about 6 months. She was initially seen at the wound center October 2022, but she needed hemodialysis and it was too difficult to make the wound center appointments. The ulcer started out as a blister which progressively worsened and subsequently opened up. She attempted to care for it at home with A&D ointment and gauze however, there has been no significant change in size. History of type 2 diabetes mellitus currently on insulin and Trulicity and most recent A1c is said to be at 6.8. She also has a history of HTN, colon cancer, uterine cancer, COPD, AKD, tobacco abuse. She sees Dr. Braswell, vascular surgeon at [facility]. She states she has not had vascular studies done with Dr. Braswell. She was instructed to wear compression stockings, but when they became too tight, she could no longer wear then. Wound culture obtained 04/05/23 which was positive for MRSA, Streptococcus group A, Serratia marcescens, Klebsiella oxytoca. She was started on Augmentin and Levaquin. She denies fever, chill, or feeling of unwell. Progress of Wound: Right leg ulcer cluster is superficial, it is looking better with compression and treatment. Her edema has improved and is +2. She is scheduled for vascular studies later today. Objective Data Objective Data Vital Signs: Vital Signs Temp Pulse Resp BP O2 Del Method 97.5 F L 82 20 H 106/42 L Room Air 04/21/23 11:24 04/21/23 11:24 04/21/23 11:24 04/21/23 11:24 04/05/23 10:08 Oxygen Delivery Method Room Air Weight: 190 lb Body Mass Index (BMI) 33.6 Lab / Micro Data Micro: Microbiology 04/05/23 11:00 Wound - Leg, Right Gram Stain - Final 04/05/23 11:00 Wound - Leg, Right Wound Culture - Final Meth. resistant Staph. aureus Streptococcus group A Serratia marcescens Klebsiella oxytoca 04/05/23 11:00 Wound - Leg, Right Anaerobic Culture - Final No anaerobic bacteria isolated. Charges/Coding Procedures Integumentary [id number]: [id number] Margaret subq tissue 20 sq cm/< Add On Codes: [id number] Margaret subq tissue add-on (x6) Debridement Note Debridement Note Wound debrided: lower leg ulcer cluster Laterality: Right Type of Debridement: Excisional debridement Anesthesia Used: 4% Lidocaine Solution and 5% Lidocaine Gel Depth: Down to and including healthy tissue and in the subcutaneous layer Percentage of wound debrided: 100 Instrument Used: 5mm curette Tissue Removed: Non viable tissue and slough Severity: Fat Layer Exposed Amount of bleeding with debridement: Mild Bleeding Controlled with: Pressure and Compression and gauze Patient tolerated procedure: Patient tolerated procedure well Post-Debridement Measurements and Additional Note: Post-Debridement Measurements/Treatment - Nurse 1 - General Ulcer Assessment Start: 04/05/23 10:08 Freq: Status: Active Protocol: ALEXANDER Activity Type Activity Date Activity User E-sign Co-sign Detail Recorded Client Recorded Date Recorded By Document 04/05/23 10:08 [facility] [id number] 04/05/23 10:21 [facility] Document 04/21/23 11:24 PL [id number] 04/21/23 11:28 PL 04/05/23 04/21/23 10:08 11:24 - Today's Visit Information Type of service Initial Visit Follow-up 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 ) Arrival Mode Ambulatory, Ambulatory, Walker Walker Transfer Assistance None None Patient Identification Verified (Name & Yes Yes ) Patient Requires Transmission-Based No No Precautions Safety Precautions NA Finger Stick Blood Sugar(mg/dl) (if 63 indicated): Blood Sugar Stated by Patient Height and Weight Height 5 ft 3 in Weight 190 lb Weight in Pounds 190.0 lbs Weight Measurement Method Stated by Patient Body Mass Index (BMI) 33.6 33.6 BMI Classification Obese Obese BSA - Emerson 1.89 Vital Signs Temperature (97.8 F-99.1 F) 96.4 F L 97.5 F L Temperature Source Temporal Temporal Pulse Rate (60-100) 80 82 Pulse Location Monitor Respiratory Rate (12-18) 16 20 H Respiratory rate source Observation Oxygen Delivery Method Room Air Blood Pressure (90/60-120/80) 110/91 H 106/42 L Blood Pressure Mean (mm Hg) 97 63 Source Monitor Position Sitting Blood Pressure Location Right Arm History Since Last Visit- (Skip if this is Patient's initial visit) Have you changed medications since your No last visit? Any new allergies or adverse reactions No Had a fall/change in ADL's that may No increase risk of falls Signs or symptoms of abuse and/or No neglect since last visit Have you been in the hospital since your No last visit? Has dressing in place as prescribed Yes Has compression in place as prescribed Yes Has offloadiing in place as prescribed N/A Experienced any changes in pain level or No management Left Footwear Regular Shoe Right Footwear Regular Shoe Pain Scale: 0-10 Numeric Is Patient Pain Free? Yes Yes Lower Extremity Assessment/ Foot Assessment/ Toe Nail Assessment Right -Lower Extremity Comment (If N/A Above SEES VASCULAR ) [facility] -Posterior Tibial Doppler Monophasic -Dorsalis Pedis Doppler Monophasic -Extremity Color Red -Hair Growth on Legs No -Hair Growth on Toes No -Temperature of Extremity Warm -Other Deformity No -Prior Foot Ulcer No -Charcot Joint No -Prior Amputation No -Thick Yes -Discolored No -Deformed No -Improper Length & Hygeine No Left -Lower Extremity Comment (If N/A Above SEES DR BRASWELL ) VASCULAR AT [facility] -Posterior Tibial Doppler Monophasic -Dorsalis Pedis Doppler Monophasic -Hair Growth on Legs No -Hair Growth on Toes No -Temperature of Extremity Warm -Capillary Refill Less than 3 Seconds -Other Deformity No -Prior Foot Ulcer No -Charcot Joint No -Prior Amputation No -Thick Yes -Discolored No -Deformed No -Improper Length & Hygeine No Communication Assessment Preferred language Danish Wireless Development Manager Required No Able to Read Yes Able to Write Yes Communication Tools None Right Hearing Abillity Normal Left Hearing Abillity Normal Visual Assistive Devices Glasses Teaching Assessment Preferences Verbal,Written, Audio/Visual, Demonstration Barriers to Learning None Readiness To Learn Excellent Willingness to Engage in Self Management High Activies Readiness to Engage in Self Management High Activities Anxiety Level Calm Cooperation Cooperative Perception Coherent Interest in Health Problem Asks Questions Education Importance Acknowledges Need Does Patient Smoke tobacco or other No substances Smoking Status Current every day smoker Is Patient Diabetic Yes Functional Assessment Recent Decline in Ability to Perform Denies Any Declines Culture/Roman Catholic/Typewriter Mechanic Cultural/Roman Catholic Needs that may affect No Treatment Plan Teaching: Wound Center *Welcome to the Wound Center -Person Taught Patient -Teaching Method Discussion -Response to teaching Verbalize understanding Welcome to the Wound Care Center English NIELSEN - Nurse 1 - General Ulcer Measurement Start: 04/05/23 10:08 Freq: Status: Active Protocol: Activity Type Activity Date Activity User E-sign Co-sign Detail Recorded Client Recorded Date Recorded By Document 04/05/23 10:08 [facility] [id number] 04/05/23 10:21 [facility] 04/05/23 10:08 Wound Center Nurse 1 #3- R MED LE CLUSTER -Combined with other wound No -Current Size (cm) - Length 4.7 -Current Size (cm) - Width 4.7 -Current Size (cm) - Depth 0.1 -Total Square Cm 22.09 -Date of Last Picture (Recall this 04/05/23 field) -Photo Taken Yes -Epithelialization None Present -Tunneling No -Undermining/Tunneling No -Circular Undermining No -Exudate Amt Medium -Exudate Type Serosanguineous -Wound Margin Distinct, Outline Attached -Granulation Amt Small (1-33%) -Granulation Quality Red -Slough/Fibrin Yes -Necrosis Amt Large (67-100%) -Necrotic Tissue Type Adherent Slough -Texture (Nicole-wound Skin Appearance) Assessed, Scarring -Moisture (Nicole-wound Skin Appearance) Assessed, Maceration -Color (Nicole-wound Skin Appearance) Assessed, Erythema -Temperature (Nicole-wound Skin No Abnormality Appearance) (Pt Warm) -Tenderness on Palpation (Nicole-wound Yes Skin Appearance) -Ulcer Cleansing Rinsed/ Irrigated with Saline -Foul Odor after Cleansing No -Anesthetic Used 4% Lidocaine Solution #2- R leg CLUSTER -Combined with other wound No -Date of Last Picture (Recall this 04/05/23 field) -Photo Taken Yes -Epithelialization None Present -Tunneling No -Undermining/Tunneling No -Circular Undermining No -Exudate Amt Medium -Exudate Type Serosanguineous -Wound Margin Distinct, Outline Attached -Granulation Amt Small (1-33%) -Granulation Quality Red -Slough/Fibrin Yes -Necrosis Amt Large (67-100%) -Necrotic Tissue Type Adherent Slough -Texture (Nicole-wound Skin Appearance) Assessed, Scarring -Moisture (Nicole-wound Skin Appearance) Assessed, Maceration -Color (Nicole-wound Skin Appearance) Assessed, Erythema -Temperature (Nicole-wound Skin No Abnormality Appearance) (Pt Warm) -Tenderness on Palpation (Nicole-wound No Skin Appearance) -Ulcer Cleansing Soap and Water -Foul Odor after Cleansing No -Anesthetic Used 4% Lidocaine Solution Lower Limb Edema Present Yes Right Calf (cm) 43 Right Ankle (cm) 26.5 Left Calf (cm) 40.3 Left Ankle (cm) 26.8 WC - Nurse 2 - General Ulcer CM Notes Start: 04/05/23 10:08 Freq: Status: Active Protocol: Activity Type Activity Date Activity User E-sign Co-sign Detail Recorded Client Recorded Date Recorded By Document 04/05/23 10:44 [id number] 04/05/23 11:03 04/05/23 10:44 Wound Center Nurse 2 #3- R MED LE CLUSTER -Time 10:44 -Correct Patient Yes -Correct Side, Site, Position Yes -Correct Procedure Yes -Procedure Performed Yes -Type of Procedure Debridement -Clinical Debridement Subcutaneous -Tissue Removed Subcutaneous -Tunneling No -Undermining/Tunneling No -Circular Undermining No -Wound/Ulcer Outcome Not Healed -Ulcer Cleansing Rinsed/ Irrigated with Saline -Foul Odor after Cleansing No -Bioengineered Tissue No -Bleeding Controlled with Pressure -Treatment Response Procedure Tolerated Well -Offloading No -Debridement - Subq, 1st 20sq cm No #2- R leg CLUSTER -Time 10:45 -Correct Patient Yes -Correct Side, Site, Position Yes -Correct Procedure Yes -Procedure Performed Yes -Type of Procedure Debridement -Clinical Debridement Subcutaneous -Tissue Removed Subcutaneous -Post Debridement (cm) - Length 9.5 -Post Debridement (cm) - Width 13.5 -Post Debridement (cm) - Depth 0.1 -Total Square (Post) (cm) 128.25 -Area of Debridement (cm) - Length 9.5 -Area of Debridement (cm) - Width 13.5 -Total Square (Area) (cm) 128.25 -Tunneling No -Undermining/Tunneling No -Circular Undermining No -Wound/Ulcer Outcome Not Healed -Ulcer Cleansing Rinsed/ Irrigated with Saline -Foul Odor after Cleansing No -Bioengineered Tissue No -Bleeding Controlled with Pressure -Treatment Response Procedure Tolerated Well -Offloading No -Debridement - Subq, 1st 20sq cm Yes -Debridement, SubQ, ea addt'l 20sq cm 6 or part thereof Pain Scale: 0-10 Numeric Is Patient Pain Free? 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 Yes - Visit Discharge Discharge Condition Stable Ambulatory Status Ambulatory, Walker Transportation Private Auto Assessment/Plan Assessment/Plan (1) Ulcer of right lower extremity with fat layer exposed: CODE(S): L97.912 - Non-pressure chronic ulcer of unspecified part of right lower leg with fat layer exposed (2) Venous insufficiency of both lower extremities: CODE(S): I87.2 - Venous insufficiency (chronic) (peripheral) (3) Type 2 diabetes mellitus: CODE(S): E11.9 - Type 2 diabetes mellitus without complications (4) Tobacco dependence: CODE(S): F17.200 - Nicotine dependence, unspecified, uncomplicated (5) MRSA (methicillin resistant Staphylococcus aureus) infection: CODE(S): A49.02 - Methicillin resistant Staphylococcus aureus infection, unspecified site PLAN: Plan Patient evaluated at the wound healing center today. Wound care - Silver alginate covered with ABD daily. Compression - Double tubigrip for compression. Scheduled for venous and arterial studies later today. Encouraged patient to stop smoking as it may have deleterious effects on wound healing. Continue Augmentin and Levaquin for her positive wound cultures. Follow up one week.
--- NOTE | 2023-04-21 13:08 | VDLE_ITS ---
Reason For Study: Edema RIGHT LEFT CFV is compressible, spontaneous, phasic, CFV is compressible, spontaneous, phasic, competent and demonstrates normal competent, and demonstrates normal augmentation. augmentation. FV is compressible, spontaneous, phasic, FV is compressible, spontaneous, phasic, competent and demonstrates normal competent and demonstrates normal augmentation. augmentation. POP V is compressible, spontaneous, phasic, POP V is compressible, spontaneous, phasic, competent and demonstrates normal competent and demonstrates normal augmentation. augmentation. T/P Trunk is compressible. T/P Trunk is compressible. PTV is compressible. PTV is compressible. RT PerV is compressible. LT PerV is compressible. SFJ is competent and measures 0.90 x 0.94 cm. SFJ is competent and measures 1.10 x 1.01 cm. GSV proximal thigh measures 0.65 x 0.64 cm. GSV proximal thigh measures 0.74 x 0.80 cm. GSV at knee measures 0.66 x 0.75 cm. GSV above knee is competent. GSV is competent throughout. GSV at knee measures 0.61 x 0.62 cm. SSV proximal calf is competent and measures GSV below knee is INCOMPETENT for greater 0.37 x 0.41 cm. than 0.5 seconds. Procedure ASV proximal calf is INCOMPETENT for greater This is a venous duplex using B-mode, color than 0.5 seconds and measures 0.32 x 0.33 cm. flow and spectral Doppler. SSV proximal calf is competent and measures Exam performed in department. 0.20 x 0.20 cm. Patient was scanned in reverse Trendelenburg position during reflux assessment. A preliminary report was called and/or faxed to . VL/Venous Duplex US - Juan José Extrem Interpretation Summary Deep veins of the lower extremities are bilaterally patent and compressible seg mentally. There is no evidence of deep vein thrombosis on either side. Valvular competence appears in tact within the proximal deep venous systems bilaterally. The great saphenous veins appear bila terally patent and compressible segmentally. Sapheno-femoral junctions are bilaterally competent . The right great saphenous vein appears segmentally competent. The left great saphenous vein alley ears competent above the knee. The left great saphenous vein appears incompetent below the knee. Sma ll saphenous veins are patent and competent bilaterally. The accessory saphenous vein in the left proximal calf is incompetent. Ordering Physician: Uma Sears Referring Physician: Eliezer Armando Performed By: Tiana Barragan RVT
--- NOTE | 2023-04-21 13:08 | ART_ITS ---
Reason For Study: PVD, Wound Procedure A bilateral lower extremity continuous wave Doppler with analog waveform analysis,segmental pressures,and ankle brachial indexes without exercise. Left Segmental Pressures Left brachial= 138.mmHg. Left thigh = 173mmHg. Left calf = 115mmHg. Left posterior tibial artery = 115mmHg. Left dorsalis pedis artery = 105mmHg. Left digit = 63 mmHg. The left dorsalis pedis waveforms are biphasic. The left posterior tibial artery waveforms are biphasic. Right Segmental Pressures Right brachial= 136mmHg. Right thigh = 206mmHg. Right calf = 122mmHg. Right posterior tibial artery = 112mmHg. Right dorsalis pedis artery = 123mmHg. Right digit = 64 mmHg. The right dorsalis pedis waveforms are biphasic. The right posterior tibial artery waveforms are biphasic. Indices The right ankle brachial index by the dorsalis pedis is 0.89. The right ankle brachial index by the posterior tibial artery is 0.81. The right digital-brachial index is 0.46. The left ankle brachial index by the dorsalis pedis is 0.76. The left ankle brachial index by the posterior tibial artery is 0.83. The left digital-brachial index is 0.46. VL/Lower Ext Art Exam w/o Exercis Interpretation Summary Biphasic Doppler waveforms are noted at ankle level bilaterally. Pulse-volume r ecordings appear satisfactory at all levels bilaterally. Resting ankle-brachial indices are mode rately diminished bilaterally. Digital-brachial indices are moderately diminished bilaterally. There is evidence of moderate arterial occlusive disease in the lower extremiti es bilaterally, which appears to be multi-segmental in nature. Ordering Physician: Uma Sears Referring Physician: Eliezer Armando Performed By: Tiana Barragan RVT
[2023-04-28 11:08] VITALS: BP 103/50; PULSE 90; RESP 20; TEMP 36; BMI 33.6
--- NOTE | 2023-04-28 12:25 | PCM.WC.PN ---
History of Present Illness Date of Service: 04/28/23 Chief Complaint: Non healing right lower extremity ulcer History of Wound: 63 yo female who presents to the wound center due to non healing right lower extremity ulcers. She has had the ulcer for about 6 months. She was initially seen at the wound center October 2022, but she needed hemodialysis and it was too difficult to make the wound center appointments. The ulcer started out as a blister which progressively worsened and subsequently opened up. She attempted to care for it at home with A&D ointment and gauze however, there has been no significant change in size. History of type 2 diabetes mellitus currently on insulin and Trulicity and most recent A1c is said to be at 6.8. She also has a history of HTN, colon cancer, uterine cancer, COPD, AKD, tobacco abuse. She sees Dr. Braswell, vascular surgeon at [facility]. She states she has not had vascular studies done with Dr. Braswell. She was instructed to wear compression stockings, but when they became too tight, she could no longer wear then. Venous studies obtained on 04/21/23 which all veins were competent the left great saphenous vein appears incompetent below the knee and the accessory saphenous vein in the left proximal calf is incompetent. Arterial studies were obtained on 04/21/23 showed Biphasic Doppler waveforms are noted at ankle level bilaterally. Pulse-volume recordings appear satisfactory at all levels bilaterally. Resting ankle-brachial indices are moderately diminished bilaterally. Digital-brachial indices are moderately diminished bilaterally. There is evidence of moderate arterial occlusive disease in the lower extremities bilaterally, which appears to be multi-segmental in nature. Right SILVANA-0.89, Left SILVANA- 0.83. Wound culture obtained 04/05/23 which was positive for MRSA, Streptococcus group A, Serratia marcescens, Klebsiella oxytoca. She was started on Augmentin and Levaquin. She denies fever, chill, or feeling of unwell. Progress of Wound: Right leg ulcer cluster is much smaller. Vascular studies completed last week. Objective Data Objective Data Vital Signs: Vital Signs Temp Pulse Resp BP O2 Del Method 96.8 F L 90 20 H 103/50 L Room Air 04/28/23 11:08 04/28/23 11:08 04/28/23 11:08 04/28/23 11:08 04/05/23 10:08 Oxygen Delivery Method Room Air Weight: 190 lb Body Mass Index (BMI) 33.6 Lab / Micro Data Micro: Microbiology 04/05/23 11:00 Wound - Leg, Right Gram Stain - Final 04/05/23 11:00 Wound - Leg, Right Wound Culture - Final Meth. resistant Staph. aureus Streptococcus group A Serratia marcescens Klebsiella oxytoca 04/05/23 11:00 Wound - Leg, Right Anaerobic Culture - Final No anaerobic bacteria isolated. Charges/Coding Procedures Integumentary [id number]: [id number] Margaret subq tissue 20 sq cm/< Add On Codes: [id number] Margaret subq tissue add-on (x3) Debridement Note Debridement Note Wound debrided: lower leg ulcer cluster Laterality: Right Type of Debridement: Excisional debridement Anesthesia Used: 4% Lidocaine Solution and 5% Lidocaine Gel Depth: Down to and including healthy tissue and in the subcutaneous layer Percentage of wound debrided: 100 Instrument Used: 5mm curette Tissue Removed: Non viable tissue and slough Severity: Fat Layer Exposed Amount of bleeding with debridement: Mild Bleeding Controlled with: Pressure and Compression and gauze Patient tolerated procedure: Patient tolerated procedure well Post-Debridement Measurements and Additional Note: Post-Debridement Measurements/Treatment - Nurse 1 - General Ulcer Assessment Start: 04/05/23 10:08 Freq: Status: Active Protocol: ALEXANDER Activity Type Activity Date Activity User E-sign Co-sign Detail Recorded Client Recorded Date Recorded By Document 04/05/23 10:08 [facility] [id number] 04/05/23 10:21 [facility] Document 04/21/23 11:24 PL [id number] 04/21/23 11:28 PL Document 04/28/23 11:08 DL [id number] 04/28/23 11:15 DL 04/05/23 04/21/23 04/28/23 10:08 11:24 11:08 - Today's Visit Information Type of service Initial Visit Follow-up Visit Follow-up Visit (Physician/NURSE CLINICIAN (Physician/NURSE CLINICIAN ) ) Arrival Mode Ambulatory, Ambulatory, Ambulatory, Walker Walker Walker Transfer Assistance None None None Patient Identification Verified (Name & Yes Yes Yes ) Patient Requires Transmission-Based No No No Precautions Safety Precautions NA Finger Stick Blood Sugar(mg/dl) (if 63 106 indicated): Blood Sugar Stated by Stated by Patient Patient Height and Weight Height 5 ft 3 in Weight 190 lb Weight in Pounds 190.0 lbs Weight Measurement Method Stated by Patient Body Mass Index (BMI) 33.6 33.6 33.6 BMI Classification Obese Obese Obese BSA - Emerson 1.89 Vital Signs Temperature (97.8 F-99.1 F) 96.4 F L 97.5 F L 96.8 F L Temperature Source Temporal Temporal Temporal Pulse Rate (60-100) 80 82 90 Pulse Location Monitor Monitor Respiratory Rate (12-18) 16 20 H 20 H Respiratory rate source Observation Oxygen Delivery Method Room Air Blood Pressure (90/60-120/80) 110/91 H 106/42 L 103/50 L Blood Pressure Mean (mm Hg) 97 63 67 Source Monitor Monitor Position Sitting Blood Pressure Location Right Arm History Since Last Visit- (Skip if this is Patient's initial visit) Have you changed medications since your No No last visit? Any new allergies or adverse reactions No No Had a fall/change in ADL's that may No No increase risk of falls Signs or symptoms of abuse and/or No No neglect since last visit Have you been in the hospital since your No No last visit? Has dressing in place as prescribed Yes Yes Has compression in place as prescribed Yes Yes Has offloadiing in place as prescribed N/A N/A Experienced any changes in pain level or No No management Left Footwear Regular Shoe Right Footwear Regular Shoe Pain Scale: 0-10 Numeric Is Patient Pain Free? Yes Yes Yes Lower Extremity Assessment/ Foot Assessment/ Toe Nail Assessment Right -Lower Extremity Comment (If N/A Above SEES VASCULAR ) DR BRASWELL @ [facility] -Posterior Tibial Doppler Monophasic -Dorsalis Pedis Doppler Monophasic -Extremity Color Red -Hair Growth on Legs No -Hair Growth on Toes No -Temperature of Extremity Warm -Other Deformity No -Prior Foot Ulcer No -Charcot Joint No -Prior Amputation No -Thick Yes -Discolored No -Deformed No -Improper Length & Hygeine No Left -Lower Extremity Comment (If N/A Above SEES DR BRASWELL ) VASCULAR AT [facility] EN -Posterior Tibial Doppler Monophasic -Dorsalis Pedis Doppler Monophasic -Hair Growth on Legs No -Hair Growth on Toes No -Temperature of Extremity Warm -Capillary Refill Less than 3 Seconds -Other Deformity No -Prior Foot Ulcer No -Charcot Joint No -Prior Amputation No -Thick Yes -Discolored No -Deformed No -Improper Length & Hygeine No Communication Assessment Preferred language Thai Data Systems Manager Required No Able to Read Yes Able to Write Yes Communication Tools None Right Hearing Abillity Normal Left Hearing Abillity Normal Visual Assistive Devices Glasses Teaching Assessment Preferences Verbal,Written, Audio/Visual, Demonstration Barriers to Learning None Readiness To Learn Excellent Willingness to Engage in Self Management High Activies Readiness to Engage in Self Management High Activities Anxiety Level Calm Cooperation Cooperative Perception Coherent Interest in Health Problem Asks Questions Education Importance Acknowledges Need Does Patient Smoke tobacco or other No substances Smoking Status Current every day smoker Is Patient Diabetic Yes Functional Assessment Recent Decline in Ability to Perform Denies Any Declines Culture/Sabianism/Development And Housing Director Cultural/Sabianism Needs that may affect No Treatment Plan Teaching: Wound Center *Welcome to the Wound Center -Person Taught Patient -Teaching Method Discussion -Response to teaching Verbalize understanding Welcome to the Wound Care Center Thai WC - Nurse 1 - General Ulcer Measurement Start: 04/05/23 10:08 Freq: Status: Active Protocol: Activity Type Activity Date Activity User E-sign Co-sign Detail Recorded Client Recorded Date Recorded By Document 04/05/23 10:08 [facility] [id number] 04/05/23 10:21 [facility] Document 04/28/23 11:08 DL [id number] 04/28/23 11:15 DL 04/05/23 04/28/23 10:08 11:08 Wound Center Nurse 1 #3- R MED LE CLUSTER -Combined with other wound No -Current Size (cm) - Length 4.7 -Current Size (cm) - Width 4.7 -Current Size (cm) - Depth 0.1 -Total Square Cm 22.09 -Date of Last Picture (Recall this 04/05/23 field) -Photo Taken Yes -Epithelialization None Present -Tunneling No -Undermining/Tunneling No -Circular Undermining No -Exudate Amt Medium -Exudate Type Serosanguineous -Wound Margin Distinct, Outline Attached -Granulation Amt Small (1-33%) -Granulation Quality Red -Slough/Fibrin Yes -Necrosis Amt Large (67-100%) -Necrotic Tissue Type Adherent Slough -Texture (Nicole-wound Skin Appearance) Assessed, Scarring -Moisture (Nicole-wound Skin Appearance) Assessed, Maceration -Color (Nicole-wound Skin Appearance) Assessed, Erythema -Temperature (Nicole-wound Skin No Abnormality Appearance) (Pt Warm) -Tenderness on Palpation (Nicole-wound Yes Skin Appearance) -Ulcer Cleansing Rinsed/ Irrigated with Saline -Foul Odor after Cleansing No -Anesthetic Used 4% Lidocaine Solution #2- R leg CLUSTER -Combined with other wound No -Current Size (cm) - Length 0.1 -Current Size (cm) - Width 0.1 -Current Size (cm) - Depth 0.1 -Total Square Cm 0.01 -Date of Last Picture (Recall this 04/05/23 field) -Photo Taken Yes No -Epithelialization None Present -Tunneling No -Undermining/Tunneling No -Circular Undermining No -Exudate Amt Medium Small -Exudate Type Serosanguineous -Wound Margin Distinct, Indistinct, Non Outline -Visible Attached -Granulation Amt Small (1-33%) Medium (34-66%) -Granulation Quality [place] -Slough/Fibrin Yes -Necrosis Amt Large (67-100%) Medium (34-66%) -Necrotic Tissue Type Adherent Slough Adherent Slough -Structure Exposed N/A -Texture (Nicole-wound Skin Appearance) Assessed, Localized Edema Scarring ,Scarring -Moisture (Nicole-wound Skin Appearance) Assessed, Dry/Scaly Maceration -Color (Nicole-wound Skin Appearance) Assessed, Erythema Erythema -Temperature (Nicole-wound Skin No Abnormality No Abnormality Appearance) (Pt Warm) (Pt Warm) -Tenderness on Palpation (Nicole-wound No Skin Appearance) -Ulcer Cleansing Soap and Water Soap and Water -Foul Odor after Cleansing No Yes, Due to Product Use -Anesthetic Used 4% Lidocaine 4% Lidocaine Solution Solution Lower Limb Edema Present Yes Right Calf (cm) 43 42 Right Ankle (cm) 26.5 27 Left Calf (cm) 40.3 39.5 Left Ankle (cm) 26.8 28.2 WC - Nurse 2 - General Ulcer CM Notes Start: 04/05/23 10:08 Freq: Status: Active Protocol: Activity Type Activity Date Activity User E-sign Co-sign Detail Recorded Client Recorded Date Recorded By Document 04/05/23 10:44 [facility] [id number] 04/05/23 11:03 [facility] Document 04/21/23 12:15 PL [id number] 04/21/23 12:17 PL 04/05/23 04/21/23 10:44 12:15 Wound Center Nurse 2 #3- R MED LE CLUSTER -Time 10:44 -Correct Patient Yes -Correct Side, Site, Position Yes -Correct Procedure Yes -Procedure Performed Yes -Type of Procedure Debridement -Clinical Debridement Subcutaneous -Tissue Removed Subcutaneous -Tunneling No -Undermining/Tunneling No -Circular Undermining No -Wound/Ulcer Outcome Not Healed -Ulcer Cleansing Rinsed/ Irrigated with Saline -Foul Odor after Cleansing No -Bioengineered Tissue No -Bleeding Controlled with Pressure -Treatment Response Procedure Tolerated Well -Offloading No -Debridement - Subq, 1st 20sq cm No #2- R leg CLUSTER -Time 10:45 11:41 -Correct Patient Yes Yes -Correct Side, Site, Position Yes Yes -Correct Procedure Yes Yes -Procedure Performed Yes Yes -Type of Procedure Debridement Debridement -Clinical Debridement Subcutaneous Subcutaneous -Tissue Removed Subcutaneous Subcutaneous -Post Debridement (cm) - Length 9.5 11.0 -Post Debridement (cm) - Width 13.5 13.5 -Post Debridement (cm) - Depth 0.1 0.1 -Total Square (Post) (cm) 128.25 148.50 -Area of Debridement (cm) - Length 9.5 11 -Area of Debridement (cm) - Width 13.5 13.5 -Total Square (Area) (cm) 128.25 148.5 -Tunneling No No -Undermining/Tunneling No No -Circular Undermining No No -Wound/Ulcer Outcome Not Healed Not Healed -Ulcer Cleansing Rinsed/ Rinsed/ Irrigated with Irrigated with Saline Saline -Foul Odor after Cleansing No No -Bioengineered Tissue No No -Bleeding Controlled with Pressure Pressure -Treatment Response Procedure Procedure Tolerated Well Tolerated Well -Offloading No -Debridement - Subq, 1st 20sq cm Yes Yes -Debridement, SubQ, ea addt'l 20sq cm 6 6 or part thereof Pain Scale: 0-10 Numeric Is Patient Pain Free? Yes Yes WC - Nurse 3 - General Ulcer D/C NN Start: 04/05/23 10:08 Freq: Status: Active Protocol: Activity Type Activity Date Activity User E-sign Co-sign Detail Recorded Client Recorded Date Recorded By Document 04/05/23 11:07 [facility] [id number] 04/05/23 11:10 [facility] Document 04/21/23 12:17 PL [id number] 04/21/23 12:18 PL Document 04/28/23 11:49 [facility] [id number] 04/28/23 11:50 [facility] 04/05/23 04/21/23 04/28/23 11:07 12:17 11:49 Wound Care Center Nurse 3 #2- R leg CLUSTER -Ulcer Cleansing Rinsed/ Rinsed/ Rinsed/ Irrigated with Irrigated with Irrigated with Saline Saline Saline -Foul Odor after Cleansing No No No -Primary Dressing Applied Silvercel Aquacel AG 4x4 C Hydrogel ($), NonAdherent Contact Layer -Other Dressing ABD, PER KW GRIEF COUNSELOR ABD -Primary Dressing Covered/Secured with Dry Gauze & Dry Gauze & Dry Gauze & Roll Gauze, Roll Gauze, Roll Gauze, Secured with Secured with Secured with Tape Tape Tape -Aquacel AG 4x4 1 -Silvercel 1 BLE -Compression Wrap Nelson Wrap -Tubular Bandage Double Layer Single Layer Single Layer -Size of Tubigrip Used Size E Size E Size D -Size D ($) 2 -Size E ($) 2 4 Treatment Response Procedure Procedure Tolerated Well Tolerated Well Pain Scale: 0-10 Numeric Is Patient Pain Free? Yes Yes Yes WC - Visit Discharge Discharge Condition Stable Stable Stable Ambulatory Status Ambulatory, Ambulatory Ambulatory, Walker Walker Transportation Private Auto Private Auto Assessment/Plan Assessment/Plan (1) Ulcer of right lower extremity with fat layer exposed: CODE(S): L97.912 - Non-pressure chronic ulcer of unspecified part of right lower leg with fat layer exposed (2) Venous insufficiency of both lower extremities: CODE(S): I87.2 - Venous insufficiency (chronic) (peripheral) (3) Type 2 diabetes mellitus: CODE(S): E11.9 - Type 2 diabetes mellitus without complications (4) Tobacco dependence: CODE(S): F17.200 - Nicotine dependence, unspecified, uncomplicated (5) MRSA (methicillin resistant Staphylococcus aureus) infection: CODE(S): A49.02 - Methicillin resistant Staphylococcus aureus infection, unspecified site PLAN: Plan Patient evaluated at the wound healing center today. Wound care - Collagen hydrogel covered with adaptic and topped with gauze or ABD daily. Compression - Single tubigrip and NELSON wrap for compression. Will send a copy of her vascular studies to Dr. Braswell, her vascular surgeon. She has an appointment with her next month. Encouraged patient to stop smoking as it may have deleterious effects on wound healing. Continue Augmentin and Levaquin for her positive wound cultures. Follow up one week.
== END 2023-04-29 23:59 | disposition home or self-care (01) ==
LOC: WC 11:00
PROVIDERS: PCP Nurse Practitioner Primary Care; Referring Provider Nurse Practitioner Primary Care; Visit Provider Nurse Practitioner Family
DX: L97.912 Non-pressure chronic ulcer of unspecified part of right lower leg with fat layer exposed (principal); J44.9 Chronic obstructive pulmonary disease, unspecified; Z79.4 Long term (current) use of insulin; E11.9 Type 2 diabetes mellitus without complications; Z79.51 Long term (current) use of inhaled steroids; I10 Essential (primary) hypertension; R60.0 Localized edema; E78.00 Pure hypercholesterolemia, unspecified; G89.29 Other chronic pain; I87.2 Venous insufficiency (chronic) (peripheral); A49.02 Methicillin resistant Staphylococcus aureus infection, unspecified site; F17.200 Nicotine dependence, unspecified, uncomplicated
CPT/HCPCS: 11042; 11045; 87070; 87075; 87077; 87186; 87205; 93923; 93970; 99214; G0463

== ENCOUNTER 2023-10-03 13:46 | Inpatient (IN) | payer MEDICAID, SELFPAY ==
[2023-10-03] VITALS (23 sets, daily range): BP systolic 88–129; BP diastolic 57–101; PULSE 80–94; RESP 14–26; TEMP 36.6–37.7; O2SAT 76–99; BMI 39.5; BMI 39.2
--- NOTE | 2023-10-03 14:16 | EDS_ITS ---
HPI History of Present Illness Chief Complaint: Shortness of Breath Detail of Chief Complaint: Shortness of breath Informant: patient Narrative Narrative: Patient presents with shortness of breath that started initially last evening. She had a hard time sleeping last night and her mother stayed with her and she was agitated. This morning she used 3 breathing treatments that seem to help her but then EMS was called today for worsening shortness of breath. She describes some mild discomfort in the anterior ribs bilaterally. Patient states that she had surgery 2 weeks ago at [facility] on her lumbar spine. She also has been gaining some weight and increase swelling in her legs. She denies history of CHF but does have history of COPD. She wears home O2 just as needed but apparently they are taking it away from her tomorrow. On room air patient's pulse ox in the 70s per EMS. [facility] Medical History (Reviewed 04/05/23 @ 17:29 by Uma Sears TALENT ACQUISITION SPECIALIST, TALENT ACQUISITION SPECIALIST-C) Anxiety and depression Arthritis Breast lump Cancer Chronic pain Colon cancer COPD (chronic obstructive pulmonary disease) Depression High cholesterol HTN (hypertension) Neuropathy Recurrent UTI Rheumatic fever Rheumatoid arthritis Seasonal allergies Sleep apnea Smoker Smoker Type 2 diabetes mellitus Ulcer of right lower extremity with fat layer exposed Uterine cancer Venous insufficiency of both lower extremities Vision problem Vitamin deficiency Home Medications ergocalciferol (vitamin D2) 1,250 mcg (50,000 unit) capsule 50,000 unit PO MARTELL SUPPLEMENT 02/28/14 [History Last Taken 09/26/23] duloxetine 60 mg capsule,delayed release 60 mg PO DAILY NEUROPATHY 02/17/18 [History Last Taken 01/27/22 08:00] insulin glargine 100 unit/mL subcutaneous solution (Lantus U-100 Insulin) 19 unit subcut QHS dm 03/01/18 [History Last Taken 10/02/23] bupropion HCl 150 mg tablet,12 hr sustained-release 150 mg PO BID depression 08/16/22 [History Last Taken 10/02/23] gabapentin 300 mg capsule 300 mg PO DAILY neuropathy 08/16/22 [History Last Taken 10/02/23] metoprolol succinate 25 mg tablet,extended release 24 hr 25 mg PO DAILY bp 08/16/22 [History Last Taken 10/02/23] pramipexole 0.5 mg tablet 0.5 mg PO QHS Check with primary doctor 08/16/22 [History Last Taken 10/02/23] albuterol sulfate 90 mcg/actuation aerosol inhaler (ProAir HFA) 2 inh inhalation Q4H PRN shortness of breath or wheezing 04/05/23 [History Last Taken 10/02/23] tamsulosin 0.4 mg capsule (Flomax) 0.4 mg PO DAILY 04/05/23 [History Last Taken 10/02/23] atorvastatin 40 mg tablet 40 mg PO DAILY 10/03/23 [History Last Taken 10/02/23] cyanocobalamin (vitamin B-12) 2,500 mcg sublingual lozenge 2,500 mcg sublingual DAILY 10/03/23 [History Last Taken 10/02/23] etanercept 50 mg/mL (1 mL) subcutaneous pen injector (Enbrel SureClick) 50 mg subcut QWEEK 10/03/23 [History Last Taken Unknown] ferrous sulfate 325 mg (65 mg iron) tablet (FeroSul) 325 mg PO .COMPLEX 10/03/23 [History Last Taken Unknown] furosemide 40 mg tablet 40 mg PO Q12H 10/03/23 [History Last Taken 10/02/23] ipratropium 0.5 mg-albuterol 3 mg (2.5 mg base)/3 mL nebulization soln 3 ml continuous nebulization Q6H PRN shortness of breath 10/03/23 [History Last Taken 10/02/23] nicotine 14 mg/24 hr daily transdermal patch 1 patch topical Q24H 10/03/23 [History Last Taken 10/02/23] semaglutide 0.25 mg or 0.5 mg (2 mg/3 mL) subcutaneous pen injector (Ozempic) 0.25 mg subcut QWEEK 10/03/23 [History Last Taken Unknown] Allergy/AdvReac Type Severity Reaction Status Date / Time clindamycin Allergy Swelling Verified 10/03/23 13:47 metformin AdvReac Nausea Verified 10/03/23 13:47 Family History Father Arthritis Cancer Diabetes Heart disease Hypertension Mother Hypertension Sister Arthritis Lupus Daughter Kidney stones Surgical History Bowel obstruction History of hysterectomy for cancer tumer removed from colon Social History household members: family Smoking Status: Current every day smoker tobacco type: cigarettes alcohol intake: never substance use type: does not use ROS ROS ED Review of Systems ROS Unobtainable: other Constitutional Constitutional ED: Reports lethargy; Denies chills, fever(s), sweats or weight loss Eyes Eyes: Denies blurry vision, change in vision or diplopia ENT ENT ED: Denies rhinorrhea or sore throat Cardiovascular Cardiovascular: Reports chest pain; Denies orthopnea or racing heartbeat Respiratory/Chest Respiratory/Chest: Reports dyspnea and dyspnea on exertion; Denies cough, orthopnea or sputum Gastrointestinal Gastrointestinal: Denies abdominal pain, diarrhea, nausea or vomiting Genitourinary Genitourinary ED: Denies dysuria, hematuria or urinary frequency Musculoskeletal Musculoskeletal: Denies arthralgias, back pain, myalgias or neck pain Integumentary Denies abscess, Abrasions or rash Neurologic Neurologic: Denies headache(s) or weakness Psychiatric Psychiatric: Denies anxiety, depression or suicidal thoughts Endocrine Endocrinology: Denies polydipsia, polyphagia or polyuria Hematologic/Lymphatic Hematologic/Lymphatic: Denies easy bleeding, easy bruising or lymphadenopathy Allergic/Immunologic Allergic/Immunologic ED: Denies mouth swelling, tongue swelling or urticaria EXAM Physical Exam Const Vital Signs: 10/03/23 13:47 10/03/23 13:52 10/03/23 13:52 Temperature 97.8 F 97.9 F Temperature Source Temporal Temporal Pulse Rate 90 90 Respiratory Rate 18 26 H Respiratory Effort Short of Breath Respiratory Depth Shallow Respiratory Pattern Tachypnea Blood Pressure 117/57 L Blood Pressure Mean 77 Pulse Ox 95 94 Oxygen Delivery Method Nasal Cannula Nasal Cannula Room Air Oxygen Flow Rate (L/min) 6 5 10/03/23 13:54 10/03/23 14:17 10/03/23 14:29 Temperature 97.8 F Temperature Source Temporal Pulse Rate 87 94 Respiratory Rate 16 23 H Respiratory Effort Respiratory Depth Respiratory Pattern Tachypnea Blood Pressure 117/78 Blood Pressure Mean 91 Pulse Ox 97 Oxygen Delivery Method Room Air Room Air Oxygen Flow Rate (L/min) 10/03/23 14:56 Temperature 97.9 F Temperature Source Temporal Pulse Rate 89 Respiratory Rate 16 Respiratory Effort Respiratory Depth Respiratory Pattern Blood Pressure 114/76 Blood Pressure Mean 88 Pulse Ox 94 Oxygen Delivery Method Nasal Cannula Oxygen Flow Rate (L/min) 8 Positive well nourished and well developed General Appearance ED: well developed and NAD HEENT Reports TM's clear and moist mucous membranes normocephalic and atraumatic; Negative for trauma or tenderness Tympanic Membrane ED: Yes TM's clear Eyes PERRL and EOMs intact bilaterally General Eye ED: Negative for pale conjunctiva or scleral icterus Neck no lymphadenopathy, supple and no JVD General: Negative for tenderness Chest Wall inspection of chest normal and palpation of chest normal Chest: Negative for tenderness Resp No normal respiratory effort and No clear to auscultation bilaterally Resp Narrative: Mild tachypnea with coarse rhonchi bilaterally and expiratory wheezes bilaterally. Few rales in the bases noted. Effort and Inspection: Negative for respiratory distress or pain with movement Auscultation: Negative for rhonchi, wheezes or diminished lung sounds Cardio regular rate, regular rhythm, S1 normal heart sound, S2 normal heart sound and no murmurs Peripheral Pulses: pulses 2+ throughout GI normal to inspection, nondistended, normoactive bowel sounds, soft to palpation, non-tender, non-distended and no masses Back/Spine no CVA tenderness and no thoracic nor lumbar tenderness Extremity normal to inspection General Extremety ED: Negative for edema General Extremity: Negative for edema Neuro oriented x3, CN's II-XII intact bilaterally, no sensory deficits noted and gait normal Sensorium / Orientation: awake, alert, oriented to person, oriented to place and oriented to time Motor Exam: strength 5/5 throughout and strength abnormal Psych mental status grossly normal Skin no rashes or lesions noted and no wounds MDM MDM MDM Narrative Medical decision making narrative: Patient presents with dyspnea that started yesterday. Patient has history of COPD. She had recent surgery. Increased edema to the legs. In the differential would be infectious etiology versus PE versus CHF or acute coronary syndrome. IV line established. Will obtain blood cultures as well as COVID and flu and RSV testing. Will obtain a BNP as well as a EKG and troponin. Will obtain a D-dimer. CBC with differential obtained showed an elevated white count of 16.5 with hemoglobin 6.9 and platelet count of 262. Chemistries unremarkable. D-dimer was elevated 2.56. BUN 46 and creatinine 2.19. Lactate slightly elevated 2.1. Glucose was elevated at 356. LFTs were normal total bilirubin was 2.4. Patient was typed and crossed for 1 unit packed red cells. Patient has a mixed picture of COPD exacerbation with possible pneumonia as well as signs of CHF. I did order Lasix 40 mg IV. Given her elevated D-dimer and recent surgery concerned about PE however given her renal status and estimated GFR of 24 we will hold off on CT imaging at this time and will discuss with hospitalist. Patient will require admission and further evaluation for PE such as possibly VQ scan. Will discuss anticoagulation with hospitalist. Patient's stool was brown without gross blood but Hemoccult positive. After discussion with hospitalist will start patient on Lovenox. She will be admitted to our PCU for ongoing care. Lab Data Attestation: I reviewed the patient's lab results. Labs: Laboratory Results - last 24 hr 10/03/23 10/03/23 14:05 15:08 WBC 16.5 H RBC 2.48 L Hgb 6.9 L Hct 22.9 L MCV 92.3 MCH 27.8 MCHC 30.1 L RDW Std Deviation 52.3 H RDW Coeff of Mat 15.8 H Plt Count 262 MPV 8.9 Immature Gran % (Auto) 2.200 H Neut % (Auto) 86.2 H Lymph % (Auto) 5.7 L [place] % (Auto) 5.7 Eos % (Auto) 0.1 Baso % (Auto) 0.1 Absolute Neuts (auto) 14.2 H Absolute Lymphs (auto) 0.93 Nucleated RBC % 0 D-Dimer Quant (PE/DVT) 2.56 H* Sodium 138 Potassium 3.8 Chloride 102 Carbon Dioxide 31.0 Anion Gap 5 BUN 46 H Creatinine 2.19 H Estim Creat Clear Calc 29.87 Est GFR (MDRD) Af Amer 29 L Est GFR (MDRD) Non-Af 24 L BUN/Creatinine Ratio 21.0 H Glucose 356 H Lactic Acid 2.1 H* Calcium 8.5 Total Bilirubin 2.40 H Direct Bilirubin 1.46 H AST 14 L ALT 19 Alkaline Phosphatase 299 H Troponin I High Sens 16 B-Natriuretic Peptide 344.4 H Total Protein 6.2 L Albumin 2.5 L Globulin 3.7 Crossmatch See Detail ABG Data ABG results: ABG 10/03/23 14:50 Specimen Type ART Sample Site L Radial pH 7.32 L Bicarbonate Actual 29.0 H Total CO2 31 Base Excess 3 H O2 Saturation 92 L O2 % 5.0 ABG pCO2 56.5 H ABG pO2 70 L Chapo Test Positive O2 Delivery Device HFNC Vent Mode Not entered Radiography Diagnostic Testing: Clinical Impression(s) from Imaging Studies Chest X-Ray 10/03/23 14:25 IMPRESSION: Left pleural effusion. Left infiltrate or atelectasis in the lower lobe. Electronically Signed: Reid Mckeon MD at 14:47 EST , 1 view chest x-ray obtained interpreted by myself as increased markings left lower lobe. Radiology felt there was a left pleural effusion with left infiltrate or atelectasis in the lower lobe. EKG Initial EKG: Attestation: I personally reviewed and interpreted this EKG as follows: Comments: Sinus rhythm with ventricular rate [address] changes. Critical Care Time Critical Care Time: Yes Critical care time (excluding procedures): 30-74 minutes, Including time spent:, Discussing w/Patient &/or Family/Carpet Installer, Discussing w/Consultants, Arranging Admission or Transfer, Performing Direct Patient Care at Bedside and - (35 minutes) Discharge Plan Triage Chief Complaint: Shortness of Breath ED Provider: Nanda Nicole Dx/Rx/DC Orders Clinical Impression: CHF (congestive heart failure), Anemia, Hypoxemia, Pneumonia Prescriptions: No Action insulin glargine [Lantus U-100 Insulin] 100 unit/mL solution 19 unit SC QHS ergocalciferol (vitamin D2) 50,000 UNIT capsule 50,000 unit PO MARTELL Patient Comments: SUPPLEMENT takes on sundays duloxetine 60 MG capsule,delayed release(DR/EC) 60 mg PO DAILY Patient Comments: STATES HAD YESTERDAY MORNING bupropion HCl 150 mg tablet sustained-release 12 hr 150 mg PO BID Patient Comments: take 1 tablet by mouth twice a day pramipexole 0.5 mg tablet 0.5 mg PO QHS Patient Comments: take 1 tablet by mouth at bedtime gabapentin 300 mg capsule 300 mg PO DAILY Patient Comments: take 1 capsule by mouth every morning 2 capsules MIDDAY and 2 capsules at bedtime metoprolol succinate 25 mg tablet extended release 24 hr 25 mg PO DAILY Patient Comments: take 1 tablet by mouth once daily tamsulosin [Flomax] 0.4 mg capsule 0.4 mg PO DAILY albuterol sulfate [ProAir HFA] 90 mcg/actuation HFA aerosol inhaler 2 inh inhalation Q4H PRN (Reason: shortness of breath or wheezing) atorvastatin 40 mg tablet 40 mg PO DAILY ferrous sulfate [FeroSul] 325 mg (65 mg iron) tablet 325 mg PO .COMPLEX Rx Instructions: 325 mg orally QOD; furosemide 40 mg tablet 40 mg PO Q12H ipratropium-albuterol 0.5 mg-3 mg(2.5 mg base)/3 mL solution for nebulization 3 ml continuous nebulization Q6H PRN (Reason: shortness of breath) nicotine 14 mg/24 hr patch 24 hour 1 patch topical Q24H Patient Comments: NOT CURRENTLY WEARING A PATCH cyanocobalamin (vitamin B-12) 2,500 mcg lozenge 2,500 mcg sublingual DAILY Enbrel SureClick 50 mg/mL (1 mL) pen injector 50 mg subcut QWEEK Ozempic 0.25 mg or 0.5 mg (2 mg/3 mL) pen injector 0.25 mg subcut QWEEK Rx Instructions: for 4 weeks Primary Care Provider: KIZZY LYNNE Referrals: Eliezer Armando NP, TALENT ACQUISITION SPECIALIST-C [Non-Staff] - Disposition Disposition: Acute Care Hospital [facility]
--- NOTE | 2023-10-03 14:25 | RAD_ITS ---
EXAM: XR CHEST, 1 VIEW CLINICAL INDICATION: dyspnea TECHNIQUE: Frontal view of the chest. COMPARISON: 08.17.22 FINDINGS: LUNGS AND PLEURAL SPACES: Left pleural effusion. Left infiltrate or atelectasis in the lower lobe. No pneumothorax. HEART: Unremarkable. Cardiac silhouette not enlarged. MEDIASTINUM: Central airways and mediastinal contour are unremarkable. BONES/JOINTS: Unremarkable. No acute fracture. SOFT TISSUES: Unremarkable. RAD/Chest 1 View (Portable) IMPRESSION: Left pleural effusion. Left infiltrate or atelectasis in the lower lobe. Electronically Signed: Reid Mckeon MD at 14:47 EST ,
[2023-10-03] MEDS: Ipratropium/Albuterol Sulfate 3 ML AMPUL.NEB INHALATION (14:27)
[2023-10-03 14:30] LABS: Absolute Lymphocyte Count 0.93 X10^3/uL (0.83-4.51); Absolute Neutrophil Count 14.2 X10^3/uL (2.0-7.7); Basophil# 0.02 X10^3/uL; Basophil% 0.1 % (0-1); Eosinophil# 0.01 X10^3/uL; Eosinophils% 0.1 % (0-5); Hematocrit 22.9 % (37-47); Hemoglobin 6.9 g/dL (12.0-15.0); Lymphocyte # 0.93 X10^3/ul (0.83-4.51); Lymphocyte % 5.7 % (19-41); Mean Corp Hgb Conc 30.1 g/dL (32-36); Mean Corpuscular Hgb 27.8 pg (27.0-32.0); Mean Corpuscular Volume 92.3 fL (81-99); Mean Platelet Vol. 8.9 fl (6.2-12.0); Monocyte# 0.93 X10^3/uL; Monocyte% 5.7 % (0-10); NRBC Flagged by Analyzer 0 % (0-5); Neutrophil # 14.21 X10^3/uL (2.7-7.7); Neutrophil % 86.2 % (47-70); Platelet Count 262 K/mm3 (150-450); RBC Distribution Width CV 15.8 % (11.6-14.6); RBC Distribution Width SD 52.3 fl (35.1-43.9); Red Blood Count 2.48 M/mm3 (4.2-5.4); White Blood Count 16.5 K/mm3 (4.4-11.0)
[2023-10-03 14:37] LABS: D-Dimer Quantitative (DVT/PE) 2.56 FEU/ug/m (0.27-0.49)
[2023-10-03 14:42] LABS: Anion Gap 5 (5-15); BUN 46 mg/dL (7-18); Calcium,Total 8.5 mg/dL (8.5-10.1); Chloride 102 mmol/L (98-107); Creatinine, Serum 2.19 mg/dL (0.55-1.02); EST Glomerular Filtration Rate 24 mL/min (>60); Est Glom Filt Rate - Afr Amer 29 mL/min (>60); Estimated Creatinine Clearance 29.87 ml/min; Glucose 356 mg/dL (74-106); Potassium 3.8 mmol/L (3.5-5.1); Sodium Level 138 mmol/L (136-145); Troponin-I HS 16 pg/mL (3.0-54.0)
[2023-10-03 14:47] LABS: BNP,B-Type NATRIURETIC PEPTIDE 344.4 pg/mL (0-100)
[2023-10-03 14:54] LABS: Allen Test Positive; Base Excess 3 mmol/L (-2 to +2); Blood Gas Specimen Type ART; Mode Not entered; O2 Delivery Device HFNC; PO2 70 mmHG (75-100); SITE L Radial; SO2 92 % (95-99); Total Carbon Dioxide 31 mmol/L; pCO2 56.5 mmHg (35-45); pH 7.32 (7.35-7.45)
[2023-10-03 14:56] LABS: Lactic Acid 2.1 mmol/L (0.4-1.9)
[2023-10-03] MEDS: Ceftriaxone 1 GM/50 ML BAG IV (15:22)
[2023-10-03] MEDS: Azithromycin 500 MG in Dextrose 5%-Water (250mL Bag) 250 ML 250 MG IV (15:23)
[2023-10-03 15:33] LABS: AST(SGOT) 14 U/L (15-37); Alanine Aminotransfer ALT/SGPT 19 U/L (13-56); Albumin, Serum 2.5 g/dL (3.2-5.0); Alkaline Phosphatase 299 U/L (45-117); Bilirubin, Direct 1.46 mg/dL (0.00-0.30); Globulin 3.7 g/dL (2.2-4.2); Protein, Total 6.2 g/dL (6.4-8.2)
[2023-10-03] MEDS: Furosemide 40 MG/4 ML Vial IV (16:24)
[2023-10-03] MEDS: Enoxaparin 100 MG/ML Syringe SC (16:32)
[2023-10-03 17:19] LABS: Bedside Glucose 380 mg/dL (74-106)
[2023-10-03 17:35] LABS: Lactic Acid 1.1 mmol/L (0.4-1.9)
--- NOTE | 2023-10-03 17:51 | HP.PCM.HOS_ITS ---
HPI - General General Date of Admission: 10/03/23 Date of Service: 10/03/23 Chief Complaint: Shortness of breath HPI Narrative WENDI ADDISON, is a 63 F who was brought to the ED by the squad for worsening shortness of breath since last night. She recently underwent back surgery at [facility] on her lumbar spine. She was improving since the surgery but since yesterday has been noticing progressive drowsiness, worsening shortness of breath and fatigue. Per the patient she also was febrile yesterday and despite being sleepy could not stay asleep the entire time. At home she requires 2-3 pillows to sleep at night and has also gained weight and has noticed swelling of her legs. Does not have a history of CHF in the past or any underlying coronary artery disease. She has a history of COPD and is on as needed home oxygen therapy. When EMS arrived at her home her saturation was in the 70s. Per the sister, they have all equipments for home oxygen therapy but have not been able to assemble it yet. WBC was 16.5, hemoglobin 6.9 and platelet count of 262. D-dimer was elevated to 2.5, BUN 46 and creatinine 2.1. Lactate was mildly elevated to 2.1. Total bilirubin of 2.4. She received 1 unit of blood in the ED. Her ABG showed a pH of 7.3, bicarb 29, oxygen saturation of 92. X-ray showed left-sided pleural effusion suspicious for left infiltrate or atelectasis. [facility] Medical History (Reviewed 04/05/23 @ 17:29 by Uma Sears APPLICATIONS SALES CONSULTANT, APPLICATIONS SALES CONSULTANT-C) Anxiety and depression Arthritis Breast lump Cancer Chronic pain Colon cancer COPD (chronic obstructive pulmonary disease) Depression High cholesterol HTN (hypertension) Neuropathy Recurrent UTI Rheumatic fever Rheumatoid arthritis Seasonal allergies Sleep apnea Smoker Smoker Type 2 diabetes mellitus Ulcer of right lower extremity with fat layer exposed Uterine cancer Venous insufficiency of both lower extremities Vision problem Vitamin deficiency Home Medications ergocalciferol (vitamin D2) 1,250 mcg (50,000 unit) capsule 50,000 unit PO MARTELL SUPPLEMENT 02/28/14 [History Last Taken 09/26/23] duloxetine 60 mg capsule,delayed release 60 mg PO DAILY NEUROPATHY 02/17/18 [History Last Taken 01/27/22 08:00] insulin glargine 100 unit/mL subcutaneous solution (Lantus U-100 Insulin) 19 unit subcut QHS dm 03/01/18 [History Last Taken 10/02/23] bupropion HCl 150 mg tablet,12 hr sustained-release 150 mg PO BID depression 08/16/22 [History Last Taken 10/02/23] gabapentin 300 mg capsule 300 mg PO DAILY neuropathy 08/16/22 [History Last Taken 10/02/23] metoprolol succinate 25 mg tablet,extended release 24 hr 25 mg PO DAILY bp 08/16/22 [History Last Taken 10/02/23] pramipexole 0.5 mg tablet 0.5 mg PO QHS Check with primary doctor 08/16/22 [History Last Taken 10/02/23] albuterol sulfate 90 mcg/actuation aerosol inhaler (ProAir HFA) 2 inh inhalation Q4H PRN shortness of breath or wheezing 04/05/23 [History Last Taken 10/02/23] tamsulosin 0.4 mg capsule (Flomax) 0.4 mg PO DAILY 04/05/23 [History Last Taken 10/02/23] atorvastatin 40 mg tablet 40 mg PO DAILY 10/03/23 [History Last Taken 10/02/23] cyanocobalamin (vitamin B-12) 2,500 mcg sublingual lozenge 2,500 mcg sublingual DAILY 10/03/23 [History Last Taken 10/02/23] etanercept 50 mg/mL (1 mL) subcutaneous pen injector (Enbrel SureClick) 50 mg subcut QWEEK 10/03/23 [History Last Taken Unknown] ferrous sulfate 325 mg (65 mg iron) tablet (FeroSul) 325 mg PO .COMPLEX 10/03/23 [History Last Taken Unknown] furosemide 40 mg tablet 40 mg PO Q12H 10/03/23 [History Last Taken 10/02/23] ipratropium 0.5 mg-albuterol 3 mg (2.5 mg base)/3 mL nebulization soln 3 ml continuous nebulization Q6H PRN shortness of breath 10/03/23 [History Last Taken 10/02/23] nicotine 14 mg/24 hr daily transdermal patch 1 patch topical Q24H 10/03/23 [History Last Taken 10/02/23] semaglutide 0.25 mg or 0.5 mg (2 mg/3 mL) subcutaneous pen injector (Ozempic) 0.25 mg subcut QWEEK 10/03/23 [History Last Taken Unknown] Allergy/AdvReac Type Severity Reaction Status Date / Time clindamycin Allergy Swelling Verified 10/03/23 13:47 metformin AdvReac Nausea Verified 10/03/23 13:47 Family History (Reviewed 04/05/23 @ 17:29 by Uma Sears APPLICATIONS SALES CONSULTANT, APPLICATIONS SALES CONSULTANT-C) Father Arthritis Cancer Diabetes Heart disease Hypertension Mother Hypertension Sister Arthritis Lupus Daughter Kidney stones Surgical History (Reviewed 04/05/23 @ 17:29 by Uma Sears APPLICATIONS SALES CONSULTANT, APPLICATIONS SALES CONSULTANT-C) Bowel obstruction History of hysterectomy for cancer tumer removed from colon Social History (Reviewed 04/05/23 @ 17:29 by Uma Sears APPLICATIONS SALES CONSULTANT, APPLICATIONS SALES CONSULTANT-C) household members: family Smoking Status: Current every day smoker tobacco type: cigarettes alcohol intake: never substance use type: does not use ROS Constitutional Constitutional: Reports change in weight, chills, fever(s), malaise and weakness Eyes Eyes: Denies blurry vision, change in eye color, change in vision, discharge from eye(s), double vision, erythema, eye pain, loss of vision or other ENT HEENT: Denies abnormal hearing, dysphagia, ear pain, epistaxis, headache(s), hearing loss, nasal congestion, nasal discharge, post nasal drip, sinus pr essure, sore throat or other Cardiovascular Cardiovascular: Reports dyspnea on exertion, edema and orthopnea Respiratory/Chest Respiratory/Chest: Reports cough, shortness of breath at rest and shortness of breath with exertion Gastrointestinal Gastrointestinal: Denies abdominal pain, coffee ground emesis, constipation, diarrhea, dyspepsia, hematemesis, hematochezia, loose stools, melena, nausea, vomiting or other Genitourinary Genitourinary: Denies burning urination, difficulty urinating, dysuria, h ematuria, nocturia, urinary frequency, urinary hesitancy, urinary incontinence, urinary urgency or other Musculoskeletal Musculoskeletal: Denies arthralgias, back pain, joint pain, joint stiffness, joint swelling, myalgias, neck pain or other Neurologic Neurologic: Denies abnormal gait, abnormal speech, confusion, disequilibrium, dizziness, focal weakness, headache(s), numbness, paresthesias, seizure-like activity, seizures, syncope, tingling, tremor(s) or other Psychiatric Psychiatric: Denies anxiety, depression, homicidal ideation, suicidal ideation or other Endocrine Endocrinology: Denies change in body appearance, cold intolerance, excessive sweating, heat intolerance, polydipsia, polyuria or other Vital Signs Vital Signs Vital Signs: 10/03/23 13:47 10/03/23 13:52 10/03/23 13:52 Temperature 97.8 F 97.9 F Temperature Source Temporal Temporal Pulse Rate 90 90 Respiratory Rate 18 26 H Respiratory Effort Short of Breath Respiratory Depth Shallow Respiratory Pattern Tachypnea Blood Pressure 117/57 L Blood Pressure Mean 77 Blood Pressure Source Blood Pressure Position Blood Pressure Location Pulse Ox 95 94 Oxygen Delivery Method Nasal Cannula Nasal Cannula Room Air Oxygen Flow Rate (L/min) 6 5 Fraction of Inspired Oxygen (FIO2) 10/03/23 13:54 10/03/23 14:17 10/03/23 14:29 Temperature 97.8 F Temperature Source Temporal Pulse Rate 87 94 Respiratory Rate 16 23 H Respiratory Effort Respiratory Depth Respiratory Pattern Tachypnea Blood Pressure 117/78 Blood Pressure Mean 91 Blood Pressure Source Blood Pressure Position Blood Pressure Location Pulse Ox 97 Oxygen Delivery Method Room Air Room Air Oxygen Flow Rate (L/min) Fraction of Inspired Oxygen (FIO2) 10/03/23 14:56 10/03/23 16:00 10/03/23 16:46 Temperature 97.9 F 98 F Temperature Source Temporal Temporal Pulse Rate 89 84 84 Respiratory Rate 16 24 H 18 Respiratory Effort Respiratory Depth Respiratory Pattern Blood Pressure 114/76 92/79 112/58 L Blood Pressure Mean 88 83 76 Blood Pressure Source Blood Pressure Position Blood Pressure Location Pulse Ox 94 92 94 Oxygen Delivery Method Nasal Cannula Non-Rebreather Oxygen Flow Rate (L/min) 8 15 Fraction of Inspired Oxygen (FIO2) 10/03/23 16:56 10/03/23 17:03 10/03/23 17:10 Temperature 98.3 F 97.8 F Temperature Source Oral Temporal Pulse Rate 84 83 83 Respiratory Rate 16 17 17 Respiratory Effort Respiratory Depth Respiratory Pattern Blood Pressure 112/58 L 128/100 H 109/98 H Blood Pressure Mean 76 109 101 Blood Pressure Source Monitor Monitor Blood Pressure Position Semi-Fowlers Semi-Fowlers Blood Pressure Location Left Arm Left Arm Pulse Ox 94 92 92 Oxygen Delivery Method Nasal Cannula High Flow Bi-pap Oxygen Flow Rate (L/min) 12 Fraction of Inspired Oxygen (FIO2) 10/03/23 17:30 Temperature Temperature Source Pulse Rate 83 Respiratory Rate 19 H Respiratory Effort Respiratory Depth Respiratory Pattern Tachypnea Blood Pressure Blood Pressure Mean Blood Pressure Source Blood Pressure Position Blood Pressure Location Pulse Ox 92 Oxygen Delivery Method Oxygen Flow Rate (L/min) Fraction of Inspired Oxygen (FIO2) 90 Weight Weight: 223 lb 5.252 oz Body Mass Index (BMI) 39.5 Physical Exam Const alert Constitutional Narrative: Drowsy but arousable HEENT normocephalic Eyes PERRL Neck no lymphadenopathy Resp Auscultation: crackles and rales bilateral Cardio regular rate GI normal to inspection, nondistended, normoactive bowel sounds Extremity Extremity Narrative: Bilateral pitting pedal edema present Neuro CN's II-XII intact bilaterally Results Lab / Micro Data Attestation: I reviewed the patient's lab results. Lab results narrative: Elevated BNP, D-dimer levels 10/03/23 14:05 10/03/23 14:05 Labs: Laboratory Results - last 24 hr 10/03/23 14:05: WBC 16.5 H, RBC 2.48 L, Hgb 6.9 L, Hct 22.9 L, MCV 92.3, MCH 27 .8, MCHC 30.1 L, RDW Std Deviation 52.3 H, RDW Coeff of Mat 15.8 H, Plt Count 262, MPV 8.9, Immature Gran % (Auto) 2.200 H, Neut % (Auto) 86.2 H, Lymph % (Auto) 5.7 L, [place] % (Auto) 5.7, Eos % (Auto) 0.1, Baso % (Auto) 0.1, Absolute Neuts (auto) 14.2 H, Absolute Lymphs (auto) 0.93, Nucleated RBC % 0, D-Dimer Quant (PE/DVT) 2.56 H*, Sodium 138, Potassium 3.8, Chloride 102, Carbon Dioxide 31.0, Anion Gap 5, BUN 46 H, Creatinine 2.19 H, Estim Creat Clear Calc 29.87, Est GFR (MDRD) Af Amer 29 L, Est GFR (MDRD) Non-Af 24 L, BUN/Creatinine Ratio 21.0 H, Glucose 356 H, Lactic Acid 2.1 H*, Calcium 8.5, Total Bilirubin 2.40 H, Direct Bilirubin 1.46 H, AST 14 L, ALT 19, Alkaline Phosphatase 299 H, Troponin I High Sens 16, B-Natriuretic Peptide 344.4 H, Total Protein 6.2 L, Albumin 2.5 L, Globulin 3.7 10/03/23 15:08: Blood Type O POSITIVE, Antibody Screen NEGATIVE, Crossmatch See Detail 10/03/23 17:00: POC Glucose 380 H 10/03/23 17:05: Lactic Acid 1.1 Micro: Microbiology 10/03/23 15:04 Stool Stool Occult Blood (SALLY) - Final Occult Blood Positive 10/03/23 14:05 Mucosa - Nasopharyngeal SARS-CoV-2, Influenza & RSV (PCR) - Final ABG Data ABG results: ABG 10/03/23 14:50 Specimen Type ART Sample Site L Radial pH 7.32 L Bicarbonate Actual 29.0 H Total CO2 31 Base Excess 3 H O2 Saturation 92 L O2 % 5.0 ABG pCO2 56.5 H ABG pO2 70 L Chapo Test Positive O2 Delivery Device HFNC Vent Mode Not entered Attestation: I personally reviewed and interpreted this ABG as follows: Imaging Radiology Impression Chest X-Ray 10/03/23 14:25 IMPRESSION: Left pleural effusion. Left infiltrate or atelectasis in the lower lobe. Electronically Signed: Reid Mckeon MD at 14:47 EST Reading Location ID and State: [facility] / [place] , Service support , Assessment & Plan Assessment/Plan (1) CHF (congestive heart failure): PLAN: Plan 63-year-old female with recent lumbar surgery, rheumatoid arthritis on etanercept and prior history of COPD presents with worsening shortness of breath, drowsiness, leukocytosis, elevated BNP and radiology findings of left- sided pleural effusion with suspected infiltrates. The differential for her shortness of breath are very broad including sepsis or acute on chronic heart failure secondary to acute anemia, acute pneumonia, suspected pulmonary embolism. 1. Acute shortness of breath: -IV Lasix 40 mg twice daily, guided by blood pressures and improvement in oxygenation -IV ceftriaxone and azithromycin to cover for community-acquired pneumonia based on the radiology findings -Agree with BiPAP started in the ED, will monitor for response -Echo to evaluate LV function -1 unit blood transfusion to maintain hemoglobin greater than 7, there are no fe atures of acute CAD at this time 2. Acute on chronic anemia: Iron deficiency anemia versus anemia of chronic disease -Hemoglobin was 9.4 on 08/26/2022 and there has been a gradual decline to 6.9 -JOSÉ MIGUEL was negative for acute bleeding but Hemoccult was positive -Will consider routine GI consult in the morning for need for inpatient evaluation -Iron plus TIBC levels -Transfuse to maintain hemoglobin greater than 7 3. MARIANA on CKD -Elevated BUN and creatinine levels -Previously required intermittent hemodialysis last year -Has type 2 diabetes and sugars are not well-controlled -Could be related to prerenal MARIANA versus cardiorenal syndrome -Continue to monitor creatinine -Will consider nephrology consult if there is any further worsening 4. Type 2 diabetes poorly controlled -Continue home insulin therapy with sliding scale in the hospital 5. Suspicion for pulmonary embolism -Bilateral lower extremity Doppler to rule out DVT -Will hold off the V/Q scan for now -Continue prophylactic heparin therapy given high risk for DVT, no active bleeding seen on the digital rectal examination done in the ED 6. Hypertension: Will hold off home antihypertensive medications given the acute presentation in the hospital and suspicion for sepsis 7. Dyslipidemia: Continue atorvastatin 8. Rheumatoid arthritis on etanercept: Hold medications for now given her acute presentation.
--- NOTE | 2023-10-03 18:20 | ECHOCS_ITS ---
Reason For Study: CHF Procedure This was a 2D Doppler, Color Flow transthoracic echocardiogram. The study was technically difficult. Exam performed portable in ICU/CCU. Left Ventricle Normal LV size. Moderate concentric left ventricular hypertrophy. The left ventricular ejection fraction is 60 %. Diastolic function is indeterminate. Right Ventricle Normal right ventricle. Atria There is mild biatrial dilatation. Mitral Valve Mild (1+) mitral valve insufficiency. Tricuspid Valve Trivial tricuspid valve insufficiency. Unable to estimate RV systolic pressure due to insufficient tricuspid regurgitant envelope. Aortic Valve Mild diffuse aortic valve calcification. Mild aortic stenosis. Pulmonic Valve The pulmonic valve is not well visualized. Great Vessels Normal sized aortic root. Pericardium/Pleural No pericardial effusion. Medication Diluted definity 1.5ml given slow IV push to enhance endocardial definition. MMode/2D Measurements & Calculations LVIDd: 4.7 cm IVSd: 1.5 cm LVOT diam: 2.1 cm LVIDs: 2.9 cm LVPWd: 1.5 cm RVDd: 3.7 cm FS: 38.6 % LVOT area: 3.5 cm2 Ao root diam: 3.0 cm LAV(MOD-bp): 69.6 ml LVAd ap4: 37.5 cm2 LAV(MOD-bp) Indexed: 34.8 ml/m2 LVLd ap4: 8.6 cm LAV(MOD-sp2): 64.0 ml EDV(MOD-sp4): 133.3 ml LAV(MOD-sp4): 70.5 ml EDV(sp4-el): 139.3 ml LVAs ap4: 21.4 cm2 LVLs ap4: 7.3 cm ESV(MOD-sp4): 55.3 ml ESV(sp4-el): 53.0 ml EF(MOD-sp4): 58.5 % EF(sp4-el): 61.9 % LVAd ap2: 39.8 cm2 SV(MOD-sp4): 78.0 ml SV(MOD-sp2): 71.0 ml LVLd ap2: 8.3 cm EDV(MOD-sp2): 159.2 ml EDV(sp2-el): 162.3 ml LVAs ap2: 28.0 cm2 LVLs ap2: 8.2 cm ESV(MOD-sp2): 88.2 ml ESV(sp2-el): 81.1 ml EF(MOD-sp2): 44.6 % SV(sp4-el): 86.3 ml LA dimension(2D): 4.1 cm LA A4 area: 22.2 cm2 RA A4 area: 20.4 cm2 TAPSE: 2.5 cm Time Measurements MV dec time: 0.18 sec Doppler Measurements & Calculations MV E max jaret: 133.8 cm/sec Lat Peak E' Jaret: 9.3 cm/sec Med Peak E' Jaret: 6.8 cm/sec MV A max jaret: 122.0 cm/sec E/E' lat: 14.4 E/E' med: 19.7 MV E/A: 1.1 MV V2 max: 144.1 cm/sec MV P1/2t max jaret: 139.6 cm/sec Ao V2 max: 233.4 cm/sec MV max P.3 mmHg MV P1/2t: 59.2 msec Ao max P.9 mmHg MV V2 mean: 98.0 cm/sec Ao V2 mean: 161.6 cm/sec MV mean P.2 mmHg MV dec slope: 690.8 cm/sec2 Ao mean P.7 mmHg MV V2 VTI: 31.0 cm MVA(P1/2t): 3.7 cm2 Ao V2 VTI: 40.3 cm AV (velocity ratio): 0.56 MVA(VTI): 2.5 cm2 JESSICA(I,D): 2.0 cm2 JESSICA(V,D): 1.7 cm2 LV V1 max: 112.5 cm/sec SV(LVOT): 78.9 ml PA V2 max: 95.0 cm/sec LV V1 max P.1 mmHg LV V1 mean P.7 mmHg LV V1 mean: 77.3 cm/sec LV V1 VTI: 22.6 cm ECHO/Echo Complete W/ Contrast Interpretation Summary Moderate concentric left ventricular hypertrophy. The left ventricular ejection fraction is 60 %. Diastolic function is indeterminate. Mild aortic stenosis. Mild (1+) mitral valve insufficiency. Ordering Physician: Rayne Hdez Referring Physician: OTD Performed By: Soumya Madera RDCS
[2023-10-03 18:36] LABS: Reflex Lactate? Y
[2023-10-03 20:00] LABS: Iron 18 ug/dL (50-170); Iron Binding Capacity,Total 199 ug/dL (250-450)
[2023-10-03 20:15] LABS: Hematocrit 24.7 % (37-47); Hemoglobin 7.5 g/dL (12.0-15.0)
[2023-10-03 20:37] LABS: Lactic Acid 1.4 mmol/L (0.4-1.9)
[2023-10-03] MEDS: Insulin Lispro 100 UNIT/ML INSULN.PEN SC (21:45)
[2023-10-03] MEDS: Insulin Glargine-YFGN 100 UNIT/ML Pen 19 UNIT SC (21:49)
[2023-10-03 22:03] LABS: Bedside Glucose 249 mg/dL (74-106)
[2023-10-04] VITALS (33 sets, daily range): BP systolic 128–160; BP diastolic 58–136; PULSE 88–108; RESP 14–32; TEMP 36.2–38.2; O2SAT 90–100; BMI 38.3
--- NOTE | 2023-10-04 01:40 | NURSING ---
bipap was taken off to get a drink of water and she desated to high 70's so bipap replaced
[2023-10-04 04:38] LABS: Absolute Lymphocyte Count 0.54 X10^3/uL (0.83-4.51); Absolute Neutrophil Count 10.4 X10^3/uL (2.0-7.7); Basophil# 0.02 X10^3/uL; Basophil% 0.2 % (0-1); Eosinophil# 0.01 X10^3/uL; Eosinophils% 0.1 % (0-5); Hematocrit 22.3 % (37-47); Hemoglobin 6.9 g/dL (12.0-15.0); Lymphocyte # 0.54 X10^3/ul (0.83-4.51); Lymphocyte % 4.7 % (19-41); Mean Corp Hgb Conc 30.9 g/dL (32-36); Mean Corpuscular Hgb 28.5 pg (27.0-32.0); Mean Corpuscular Volume 92.1 fL (81-99); Mean Platelet Vol. 8.9 fl (6.2-12.0); Monocyte# 0.54 X10^3/uL; Monocyte% 4.7 % (0-10); NRBC Flagged by Analyzer 0.2 % (0-5); Neutrophil # 10.43 X10^3/uL (2.7-7.7); Neutrophil % 89.8 % (47-70); POSITIVE DIFFERENTIAL YES; POSITIVE MORPHOLOGY YES; Platelet Count 219 K/mm3 (150-450); RBC Distribution Width CV 15.8 % (11.6-14.6); RBC Distribution Width SD 52.8 fl (35.1-43.9); Red Blood Count 2.42 M/mm3 (4.2-5.4); White Blood Count 11.6 K/mm3 (4.4-11.0)
[2023-10-04 04:46] LABS: International Normalized Ratio 1.3; Prothrombin Time (Protime)PT. 15.8 SECONDS (11.7-14.9)
[2023-10-04 05:18] LABS: ALB/GLOB Ratio 0.6 RATIO (0.9-2.4); AST(SGOT) 12 U/L (15-37); Alanine Aminotransfer ALT/SGPT 13 U/L (13-56); Albumin, Serum 2.2 g/dL (3.2-5.0); Alkaline Phosphatase 243 U/L (45-117); Anion Gap 2 (5-15); BUN 51 mg/dL (7-18); BUN/Creat Ratio 23.7 RATIO (10-20); Calcium,Total 8.3 mg/dL (8.5-10.1); Chloride 100 mmol/L (98-107); Creatinine, Serum 2.15 mg/dL (0.55-1.02); EST Glomerular Filtration Rate 25 mL/min (>60); Est Glom Filt Rate - Afr Amer 30 mL/min (>60); Globulin 3.5 g/dL (2.2-4.2); Glucose 234 mg/dL (74-106); Magnesium 1.6 mg/dL (1.6-2.6); Phosphorus 4.7 mg/dL (2.5-4.9); Potassium 3.9 mmol/L (3.5-5.1); Protein, Total 5.7 g/dL (6.4-8.2); Sodium Level 135 mmol/L (136-145); Thyroid Stim Hormone (TSH) 0.79 uIU/mL (0.358-3.74)
[2023-10-04] MEDS: Insulin Lispro 100 UNIT/ML INSULN.PEN SC ×4 (06:13→21:15)
[2023-10-04] MEDS: 0.9% Saline Lock 10 ML Syringe IV (06:13)
[2023-10-04 06:31] LABS: Bedside Glucose 207 mg/dL (74-106)
[2023-10-04 06:59] LABS: Differential Indicated SCAN CRITERIA MET
--- NOTE | 2023-10-04 07:31 | PCM.PN.HOSP ---
Reason for Visit Reason for Visit: Diagnoses Heart failure, unspecified (10/03/23) Subjective Subjective 63-year-old female with recent lumbar surgery, rheumatoid arthritis on etanercept and prior history of COPD presents with worsening shortness of breath, drowsiness, leukocytosis, elevated BNP and radiology findings of left-sided pleural effusion with suspected infiltrates. Objective Data Objective Data Vital Signs: Vital Signs Temp Pulse Resp BP Pulse Ox O2 Del Method O2 Flow Rate 100.8 F H 94 18 148/66 H 92 Bi-pap 8 10/04/23 07:00 10/04/23 07:00 10/04/23 07:00 10/04/23 07:00 10/04/23 07:00 10/04/23 07:00 10/04/23 05:00 FiO2 45 10/04/23 07:00 Oxygen Flow Rate (L/min) 8 Oxygen Delivery Method Bi-pap Weight: 98.2 kg Body Mass Index (BMI) 38.3 Intake & Output: Intake and Output for Last 24 Hours 10/02/23 10/03/23 10/04/23 23:59 23:59 23:59 Intake Total 305 / 305 100 / 100 Output Total 550 / 550 150 / 150 Balance -245 / -245 -50 / -50 Lab / Micro Data 10/04/23 04:20 10/04/23 04:20 Labs: Laboratory Results - last 24 hr 10/03/23 14:05: WBC 16.5 H, RBC 2.48 L, Hgb 6.9 L, Hct 22.9 L, MCV 92.3, MCH 27.8, MCHC 30.1 L, RDW Std Deviation 52.3 H, RDW Coeff of Mat 15.8 H, Plt Count 262, MPV 8.9, Immature Gran % (Auto) 2.200 H, Neut % (Auto) 86.2 H, Lymph % (Auto) 5.7 L, [place] % (Auto) 5.7, Eos % (Auto) 0.1, Baso % (Auto) 0.1, Absolute Neuts (auto) 14.2 H, Absolute Lymphs (auto) 0.93, Nucleated RBC % 0, D-Dimer Quant (PE/DVT) 2.56 H*, Sodium 138, Potassium 3.8, Chloride 102, Carbon Dioxide 31.0, Anion Gap 5, BUN 46 H, Creatinine 2.19 H, Estim Creat Clear Calc 29.87, Est GFR (MDRD) Af Amer 29 L, Est GFR (MDRD) Non-Af 24 L, BUN/Creatinine Ratio 21.0 H, Glucose 356 H, Lactic Acid 2.1 H*, Calcium 8.5, Iron 18 L, TIBC 199 L, Total Bilirubin 2.40 H, Direct Bilirubin 1.46 H, AST 14 L, ALT 19, Alkaline Phosphatase 299 H, Troponin I High Sens 16, B-Natriuretic Peptide 344.4 H, Total Protein 6.2 L, Albumin 2.5 L, Globulin 3.7 10/03/23 15:08: Blood Type O POSITIVE, Antibody Screen NEGATIVE, Crossmatch See Detail 10/03/23 17:00: POC Glucose 380 H 10/03/23 17:05: Lactic Acid 1.1 10/03/23 20:00: Hgb 7.5 L, Hct 24.7 L, Lactic Acid 1.4 10/03/23 21:42: POC Glucose 249 H 10/04/23 04:20: WBC 11.6 H, RBC 2.42 L, Hgb 6.9 L, Hct 22.3 L, MCV 92.1, MCH 28.5, MCHC 30.9 L, RDW Std Deviation 52.8 H, RDW Coeff of Mat 15.8 H, Plt Count 219, MPV 8.9, Immature Gran % (Auto) 0.500, Neut % (Auto) 89.8 H, Lymph % (Auto) 4.7 L, [place] % (Auto) 4.7, Eos % (Auto) 0.1, Baso % (Auto) 0.2, Absolute Neuts (auto) 10.4 H, Absolute Lymphs (auto) 0.54 L, Nucleated RBC % 0.2, PT 15.8 H, INR 1.3, Sodium 135 L, Potassium 3.9, Chloride 100, Carbon Dioxide 33.0 H, Anion Gap 2 L, BUN 51 H, Creatinine 2.15 H, Estim Creat Clear Calc 29.90, Est GFR (MDRD) Af Amer 30 L, Est GFR (MDRD) Non-Af 25 L, BUN/Creatinine Ratio 23.7 H, Glucose 234 H, Calcium 8.3 L, Phosphorus 4.7, Magnesium 1.6, Total Bilirubin 1.60 H, Direct Bilirubin 1.10 H, AST 12 L, ALT 13, Alkaline Phosphatase 243 H, Total Protein 5.7 L, Albumin 2.2 L, Globulin 3.5, Albumin/Globulin Ratio 0.6 L, TSH 0.79 10/04/23 06:12: POC Glucose 207 H Micro: Microbiology 10/03/23 15:04 Stool Stool Occult Blood (SALLY) - Final Occult Blood Positive 10/03/23 14:05 Mucosa - Nasopharyngeal SARS-CoV-2, Influenza & RSV (PCR) - Final ABG Data ABG results: ABG 10/03/23 14:50 Specimen Type ART Sample Site L Radial pH 7.32 L Bicarbonate Actual 29.0 H Total CO2 31 Base Excess 3 H O2 Saturation 92 L O2 % 5.0 ABG pCO2 56.5 H ABG pO2 70 L Chapo Test Positive O2 Delivery Device HFNC Vent Mode Not entered Radiography Diagnostic Testing: Radiology Impression Chest X-Ray 10/03/23 14:25 IMPRESSION: Left pleural effusion. Left infiltrate or atelectasis in the lower lobe. Electronically Signed: Reid Mckeon MD at 14:47 EST Reading Location ID and State: [facility] / [place] , Service support , Physical Exam Narrative GENERAL: Lethargic HEENT: Atraumatic; normocephalic EYES; Anicteric, Normal Conjunctiva NECK; supple, normal thyroid, RESPIRATORY: Diminished to auscultation CARDIOVASCULAR: Regular S1 S2, GI: soft, normoactive bowel sounds, : No Renal angle tenderness; EXTREMITIES: No edema, no clubbing, MUSCULOSKELETAL: no muscle wasting NEURO: no lateralizing signs. SKIN: No Rash PSYCH; Flat affect Assessment & Plan Assessment/Plan (1) CHF (congestive heart failure): PLAN: Plan 63-year-old female with recent lumbar surgery, rheumatoid arthritis on etanercept and prior history of COPD presents with worsening shortness of breath, drowsiness, leukocytosis, elevated BNP and radiology findings of left-sided pleural effusion with suspected infiltrates. 1. Acute hypoxic respiratory failure ?Suspected to be secondary to pneumonia with multidrug-resistant organism given patient immunosuppressive status. Admitted to the intensive care unit placed on noninvasive ventilation with BiPAP with consultation placed pulmonary medicine 2. Pneumonia with suspected multidrug resistance organism ? Patient started on ceftriaxone and azithromycin, adjusted antibiotic therapy with addition of vancomycin 3. Elevated D-dimer ? With high suspicion for VTE. Bilateral venous Doppler ordered. CTA could not be ordered given patient impaired kidney function 4. Acute metabolic encephalopathy ? Secondary to acute hypoxic respiratory failure 5. Chronic kidney disease stage IV ? Patient creatinine has fluctuated in the past and did require transient hemodialysis. Creatinine on admission was 2.19 down to 2.15 6. Anemia - Secondary to chronic disorder/iron deficiency anemia. Patient hemoglobin on admission was 6.9. Did receive transfusion with 1 unit PRBC. Subsequently monitoring H&H and transfuse if patient becomes symptomatic or hemoglobin falls below 7. Patient apparently had rectal exams in the emergency department which was Hemoccult negative 7. Diabetes mellitus type 2 ? With complications including diabetic nephropathy as well as diabetic polyneuropathy. Held patient oral agents placed on long-acting insulin with sliding scale coverage 8. Essential hypertension ? Patient blood pressure control remains labile 9. Rheumatoid arthritis ? Patient is on etanercept [place] q. weekly 10. Dyslipidemia -Patient is on statin therapy, continued at home dose 11. Tobacco dependence - Counseled on cessation, offered nicotine patch for tobacco cravings 12. Acute kidney injury ruled out 13. Class II obesity with BMI of 38 ? Weight loss advised 14. DVT prophylaxis ? Patient on heparin Time spent in the patient's overall evaluation,decision-making process, review of diagnostic data, adjustment of management, discussion with other providers, nursing nursing and ancillary staff involved in patient's care documentation, 50 Minutes Charges/Coding Visit Charges Inpatient E&M: 07458 [facility] Hosp L3
[2023-10-04 08:45] LABS: Differential Comment SCANNED; Toxic Granulation 1+
[2023-10-04] MEDS: guaiFENesin 1,200 MG Tablet 1200 MG PO ×2 (10:04→21:10)
[2023-10-04] MEDS: buPROPion (SR) 150 MG Tablet.SA PO ×2 (10:04→21:11)
[2023-10-04] MEDS: Cyanocobalamin 500 MCG Tablet 2500 MCG PO (10:04)
[2023-10-04] MEDS: Enoxaparin 30 MG/0.3 ML Syringe SC (10:04)
[2023-10-04] MEDS: Gabapentin 300 MG Capsule PO (10:08)
[2023-10-04] MEDS: Vancomycin HCl 1,500 MG in 0.9% Normal Saline (500mL Bag) 500 ML 250 MG IV (10:12)
--- NOTE | 2023-10-04 10:47 | EX.PCM.CONCC ---
Assessment & Plan Assessment/Plan (1) Hypoxemia: PLAN: Plan RECOMMENDATIONS: 1. Continue supplemental oxygen to maintain saturations at or above 90%. 2. Continue PAP therapy as needed and nightly. 3. Transfuse 1 unit of packed red blood cells. 4. Start PPI therapy as ordered. 5. Obtain gastroenterology consultation. 6. Continue antibiotics and bronchodilators. IMPRESSIONS: 1. Acute on chronic hypoxemic respiratory failure Most likely multifactorial in etiology. I do suspect that the patient's presenting anemia is likely contributing to her hypoxemia and shortness of breath, along with underlying COPD which is likely in a state of exacerbation due to underlying left lower lobe pneumonia. For now, the patient will be continued on antibiotics and bronchodilators. While she does have a history of COPD of unclear severity, the patient is only utilizing albuterol as needed at her baseline. Therefore, her disease is certainly not being adequately addressed on an outpatient basis. She would be a candidate for a maintenance medication, if she truly has underlying obstructive lung disease. However, I will defer this decision making to her primary databases computer consultant in [place]. In the interim, we will continue supplemental oxygen along with intermittent use of noninvasive positive pressure ventilatory support, as needed. 2. Anemia Continue to monitor H&H. Transfuse if hemoglobin drops below 7 g/dL. Start PPI therapy and obtain gastroenterology consultation. 3. History of obstructive sleep apnea The patient reports noncompliance with nocturnal PAP therapy. Recommend continuing BiPAP therapy, as ordered, throughout the day as needed and nightly. 4. Recent lumbar spine surgery/history of rheumatoid arthritis on etanercept/chronic kidney disease/diabetes mellitus/tobacco dependency Complicates care, management, recovery and prognosis. Continue supportive measures as noted above. This note was generated with [employer] dictation software. It may contain incorrect words, spelling, and punctuation that were not noted in checking the note before signing. HPI Consult Data Date of Consult: 10/04/23 HPI Narrative Reason for Consultation: Respiratory failure HPI Narrative: The patient is a 63-year-old female, with a history as outlined below, who presented to the emergency department on October 03 with shortness of breath. The patient has an apparent history of COPD of unclear severity and obstructive sleep apnea, with questionable PAP compliance. The patient reported that she just recently establish care with a pulmonary provider in [place], following a recent back surgery. Although the patient reported that she had breathing studies done prior to her surgery, with a confirmation of COPD, she is only prescribed as needed albuterol at her baseline. She does have an extensive smoking history and continues to smoke between 0.5 and 0.75 packs of cigarettes per day. On presentation to the emergency department, the patient was noted to be afebrile and hemodynamically stable. Initial laboratory evaluation revealed a white blood cell count of 17,000. Hemoglobin was low at 6.9 g/dL. D-dimer was elevated at 2.56. ABG demonstrated a pH of 7.3 with a pCO2 of 56 and pO2 of 70. Chemistry profile was notable for a creatinine of 2.19. Lactate was mildly elevated at 2.1. Chest x-ray demonstrated a possible left lower lobe infiltrate with an associated effusion. Stool for occult blood was positive. COVID, influenza and RSV PCR were negative. Strep and urine Legionella antigens were negative. The patient was initiated on noninvasive positive pressure ventilatory support along with antimicrobials. She was subsequently admitted to the medical intensive care unit for further management. The patient did receive transfusion of 1 unit of packed red blood cells yesterday. However, her hemoglobin is back down to 6.9 g/dL. [facility] Medical History Anxiety and depression Arthritis Breast lump Cancer Chronic pain Colon cancer COPD (chronic obstructive pulmonary disease) Depression High cholesterol HTN (hypertension) Neuropathy Recurrent UTI Rheumatic fever Rheumatoid arthritis Seasonal allergies Sleep apnea Smoker Smoker Type 2 diabetes mellitus Ulcer of right lower extremity with fat layer exposed Uterine cancer Venous insufficiency of both lower extremities Vision problem Vitamin deficiency Home Medications ergocalciferol (vitamin D2) 1,250 mcg (50,000 unit) capsule 50,000 unit PO MARTELL SUPPLEMENT 02/28/14 [History Last Taken 09/26/23] duloxetine 60 mg capsule,delayed release 60 mg PO DAILY NEUROPATHY 02/17/18 [History Last Taken 01/27/22 08:00] insulin glargine 100 unit/mL subcutaneous solution (Lantus U-100 Insulin) 19 unit subcut QHS dm 03/01/18 [History Last Taken 10/02/23] bupropion HCl 150 mg tablet,12 hr sustained-release 150 mg PO BID depression 08/16/22 [History Last Taken 10/02/23] gabapentin 300 mg capsule 300 mg PO DAILY neuropathy 08/16/22 [History Last Taken 10/02/23] metoprolol succinate 25 mg tablet,extended release 24 hr 25 mg PO DAILY bp 08/16/22 [History Last Taken 10/02/23] pramipexole 0.5 mg tablet 0.5 mg PO QHS Check with primary doctor 08/16/22 [History Last Taken 10/02/23] albuterol sulfate 90 mcg/actuation aerosol inhaler (ProAir HFA) 2 inh inhalation Q4H PRN shortness of breath or wheezing 04/05/23 [History Last Taken 10/02/23] tamsulosin 0.4 mg capsule (Flomax) 0.4 mg PO DAILY 04/05/23 [History Last Taken 10/02/23] atorvastatin 40 mg tablet 40 mg PO DAILY 10/03/23 [History Last Taken 10/02/23] cyanocobalamin (vitamin B-12) 2,500 mcg sublingual lozenge 2,500 mcg sublingual DAILY 10/03/23 [History Last Taken 10/02/23] etanercept 50 mg/mL (1 mL) subcutaneous pen injector (Enbrel SureClick) 50 mg subcut QWEEK 10/03/23 [History Last Taken Unknown] ferrous sulfate 325 mg (65 mg iron) tablet (FeroSul) 325 mg PO .COMPLEX 10/03/23 [History Last Taken Unknown] furosemide 40 mg tablet 40 mg PO Q12H 10/03/23 [History Last Taken 10/02/23] ipratropium 0.5 mg-albuterol 3 mg (2.5 mg base)/3 mL nebulization soln 3 ml continuous nebulization Q6H PRN shortness of breath 10/03/23 [History Last Taken 10/02/23] nicotine 14 mg/24 hr daily transdermal patch 1 patch topical Q24H 10/03/23 [History Last Taken 10/02/23] semaglutide 0.25 mg or 0.5 mg (2 mg/3 mL) subcutaneous pen injector (Ozempic) 0.25 mg subcut QWEEK 10/03/23 [History Last Taken Unknown] Allergy/AdvReac Type Severity Reaction Status Date / Time clindamycin Allergy Swelling Verified 10/03/23 13:47 metformin AdvReac Nausea Verified 10/03/23 13:47 Family History (Reviewed 04/05/23 @ 17:29 by Uma Sears CARDIOLOGY CLINICAL CONSULTANT, CARDIOLOGY CLINICAL CONSULTANT-C) Father Arthritis Cancer Diabetes Heart disease Hypertension Mother Hypertension Sister Arthritis Lupus Daughter Kidney stones Surgical History (Reviewed 04/05/23 @ 17:29 by Uma Sears CARDIOLOGY CLINICAL CONSULTANT, CARDIOLOGY CLINICAL CONSULTANT-C) Bowel obstruction History of hysterectomy for cancer tumer removed from colon Social History (Reviewed 04/05/23 @ 17:29 by Uma Sears CARDIOLOGY CLINICAL CONSULTANT, CARDIOLOGY CLINICAL CONSULTANT-C) household members: family Smoking Status: Current every day smoker tobacco type: cigarettes alcohol intake: never substance use type: does not use ROS ROS Narrative 10 systems were reviewed with pertinent positives as noted in the HPI above. Physical Exam Const alert General Appearance: cooperative and ill appearing HEENT normocephalic and head/scalp atraumatic Eyes PERRL, EOMs intact bilaterally and conjunctivae normal Neck supple General: trachea midline Chest inspection of chest normal Resp Effort and Inspection: tachypneic and labored Auscultation: diminished lung sounds Cardio regular rate and regular rhythm GI normal to inspection, nondistended, normoactive bowel sounds Extremity no clubbing, cyanosis or edema Skin no rashes or lesions noted Neuro CN's II-XII intact bilaterally, moves all extremities and no focal motor deficits Psych cooperative and affect normal Lab / Micro Data 10/04/23 04:20 10/04/23 04:20 Labs: Laboratory Results - last 24 hr 10/03/23 14:05: WBC 16.5 H, RBC 2.48 L, Hgb 6.9 L, Hct 22.9 L, MCV 92.3, MCH 27.8, MCHC 30.1 L, RDW Std Deviation 52.3 H, RDW Coeff of Mat 15.8 H, Plt Count 262, MPV 8.9, Immature Gran % (Auto) 2.200 H, Neut % (Auto) 86.2 H, Lymph % (Auto) 5.7 L, [place] % (Auto) 5.7, Eos % (Auto) 0.1, Baso % (Auto) 0.1, Absolute Neuts (auto) 14.2 H, Absolute Lymphs (auto) 0.93, Nucleated RBC % 0, D-Dimer Quant (PE/DVT) 2.56 H*, Sodium 138, Potassium 3.8, Chloride 102, Carbon Dioxide 31.0, Anion Gap 5, BUN 46 H, Creatinine 2.19 H, Estim Creat Clear Calc 29.87, Est GFR (MDRD) Af Amer 29 L, Est GFR (MDRD) Non-Af 24 L, BUN/Creatinine Ratio 21.0 H, Glucose 356 H, Lactic Acid 2.1 H*, Calcium 8.5, Iron 18 L, TIBC 199 L, Total Bilirubin 2.40 H, Direct Bilirubin 1.46 H, AST 14 L, ALT 19, Alkaline Phosphatase 299 H, Troponin I High Sens 16, B-Natriuretic Peptide 344.4 H, Total Protein 6.2 L, Albumin 2.5 L, Globulin 3.7 10/03/23 15:08: Blood Type O POSITIVE, Antibody Screen NEGATIVE, Crossmatch See Detail 10/03/23 17:00: POC Glucose 380 H 10/03/23 17:05: Lactic Acid 1.1 10/03/23 20:00: Hgb 7.5 L, Hct 24.7 L, Lactic Acid 1.4 10/03/23 21:42: POC Glucose 249 H 10/04/23 04:20: WBC 11.6 H, RBC 2.42 L, Hgb 6.9 L, Hct 22.3 L, MCV 92.1, MCH 28.5, MCHC 30.9 L, RDW Std Deviation 52.8 H, RDW Coeff of Mat 15.8 H, Plt Count 219, MPV 8.9, Immature Gran % (Auto) 0.500, Neut % (Auto) 89.8 H, Lymph % (Auto) 4.7 L, [place] % (Auto) 4.7, Eos % (Auto) 0.1, Baso % (Auto) 0.2, Absolute Neuts (auto) 10.4 H, Absolute Lymphs (auto) 0.54 L, Nucleated RBC % 0.2, Differential Comment SCANNED, Toxic Granulation 1+, PT 15.8 H, INR 1.3, Sodium 135 L, Potassium 3.9, Chloride 100, Carbon Dioxide 33.0 H, Anion Gap 2 L, BUN 51 H, Creatinine 2.15 H, Estim Creat Clear Calc 29.90, Est GFR (MDRD) Af Amer 30 L, Est GFR (MDRD) Non-Af 25 L, BUN/Creatinine Ratio 23.7 H, Glucose 234 H, Calcium 8.3 L, Phosphorus 4.7, Magnesium 1.6, Total Bilirubin 1.60 H, Direct Bilirubin 1.10 H, AST 12 L, ALT 13, Alkaline Phosphatase 243 H, Total Protein 5.7 L, Albumin 2.2 L, Globulin 3.5, Albumin/Globulin Ratio 0.6 L, TSH 0.79 10/04/23 06:12: POC Glucose 207 H Micro: Microbiology 10/04/23 09:00 Urine Catheter - Gaffney Legionella Antigen - Final 10/04/23 09:00 Urine Catheter - Gaffney Streptococcus pneumoniae Antigen (M - Final 10/03/23 15:04 Stool Stool Occult Blood (SALLY) - Final Occult Blood Positive 10/03/23 14:05 Mucosa - Nasopharyngeal SARS-CoV-2, Influenza & RSV (PCR) - Final ABG Data ABG results: ABG 10/03/23 14:50 Specimen Type ART Sample Site L Radial pH 7.32 L Bicarbonate Actual 29.0 H Total CO2 31 Base Excess 3 H O2 Saturation 92 L O2 % 5.0 ABG pCO2 56.5 H ABG pO2 70 L Chapo Test Positive O2 Delivery Device HFNC Vent Mode Not entered Imaging Radiology Impression Chest X-Ray 10/03/23 14:25 IMPRESSION: Left pleural effusion. Left infiltrate or atelectasis in the lower lobe. Electronically Signed: Reid Mckeon MD at 14:47 EST Reading Location ID and State: [facility] / [place] , Service support , Charges/Coding Visit Charges Inpatient E&M: 65196 Init Hosp L3
--- NOTE | 2023-10-04 11:04 | VDLE_ITS ---
Reason For Study: Elevated D-Dimer RIGHT LEFT GSV is normal. GSV is normal. CFV is compressible, spontaneous, phasic, CFV is compressible, spontaneous, phasic, competent and demonstrates normal competent, and demonstrates normal augmentation. augmentation. FV is compressible, spontaneous, phasic, FV is compressible, spontaneous, phasic, competent and demonstrates normal competent and demonstrates normal augmentation. augmentation. POP V is compressible, spontaneous, phasic, POP V is compressible, spontaneous, phasic, competent and demonstrates normal competent and demonstrates normal augmentation. augmentation. T/P Trunk is compressible. T/P Trunk is compressible. PTV is compressible. PTV is compressible. RT PerV is compressible. LT PerV is compressible. Procedure This is a venous duplex using B-mode, color flow and spectral Doppler. Exam performed portable in ICU/CCU. The study was technically difficult. A preliminary report was called and/or faxed to ICU. VL/Venous Duplex US - Juan José Extrem Interpretation Summary Deep veins of the bilateral lower extremities are patent and compressible segme ntally. There is no evidence of bilateral lower extremity deep vein thrombosis. The bilateral great saphenous veins appear patent and compressible segmentally. Ordering Physician: Bc Parker Performed By: Tiana Barragan RVT
--- NOTE | 2023-10-04 11:19 | PCM.RX.CS ---
Consult Antibiotic Management Pharmacy has been consulted to manage selected antibiotic: Vancomycin Type of Intervention Type of Consult: New start Suspected Infection Suspected Infection: Pneumonia Labs Labs: Sodium 135 mmol/L (136-145) L 10/04/23 04:20 Potassium 3.9 mmol/L (3.5-5.1) 10/04/23 04:20 Chloride 100 mmol/L (98-107) 10/04/23 04:20 Carbon Dioxide 33.0 mmol/L (21.0-32.0) H 10/04/23 04:20 Anion Gap 2 (5-15) L 10/04/23 04:20 BUN 51 mg/dL (7-18) H 10/04/23 04:20 Creatinine 2.15 mg/dL (0.55-1.02) H 10/04/23 04:20 Est GFR (MDRD) Af Amer 30 mL/min (>60) L 10/04/23 04:20 Est GFR (MDRD) Non-Af 25 mL/min (>60) L 10/04/23 04:20 BUN/Creatinine Ratio 23.7 RATIO (10-20) H 10/04/23 04:20 Glucose 234 mg/dL (74-106) H 10/04/23 04:20 Microbiology Microbiology: Microbiology 10/03/23 14:05 Blood Culture (Wb) - Anticubital Left Blood Culture - Preliminary 10/04/23 09:00 Urine Catheter - Gaffney Legionella Antigen - Final 10/04/23 09:00 Urine Catheter - Gaffney Streptococcus pneumoniae Antigen (M - Final 10/03/23 15:04 Stool Stool Occult Blood (SALLY) - Final Occult Blood Positive 10/03/23 14:05 Mucosa - Nasopharyngeal SARS-CoV-2, Influenza & RSV (PCR) - Final Goal Trough Goal Trough: 15-20 mcg/mL Pharmacy Plan for Drug Dosing Pharmacy Plan for Drug Dosing: NEW START IV VANCOMYCIN Consulting Physician: Dr. Parker Indication: Pneumonia Goal Trough: 15-20 SrCr: 2.15 CrCl: 30 mL/min Comments: Patient had initial dose of 1500mg IV x1 ordered and administered 10/04 @1012 Vancomycin Dose: Start vancomycin 1500mg IV Q24h to start 10/05/23 @1000 Pending Level: 10/06/23 @0930 Pharmacy Service will continue to monitor and adjust dosing as required.
[2023-10-04 12:02] LABS: Bedside Glucose 213 mg/dL (74-106)
[2023-10-04] MEDS: Pantoprazole Sodium 40 MG in 0.9% Normal Saline (100mL MB+) 100 ML 330 MG IV ×2 (12:40→21:09)
[2023-10-04] MEDS: Azithromycin 500 MG in Dextrose 5%-Water (250mL Bag) 250 ML 250 MG IV (13:11)
--- NOTE | 2023-10-04 13:59 | CON.PCM.GI_ITS ---
HPI Consult Data Date of Consult: 10/04/23 HPI Narrative Reason for Consultation: Anemia HPI Narrative: WENDI ADDISON, is a 63 F who presented with shortness of breath. She had a hard time sleeping last night and her mother stayed with her and she was agitated. She used 3 breathing treatments that seem to help her but then EMS was called today for worsening shortness of breath. She describes some mild discomfort in the anterior ribs bilaterally. Patient states that she had surgery 2 weeks ago at [facility] on her lumbar spine. She also has been gaining some weight and increase swelling in her legs. She denies history of CHF but does have history of COPD. She wears home O2 just as needed but apparently they are taking it away from her tomorrow. On room air patient's pulse ox in the 70s per EMS. Does not have a history of CHF in the past or any underlying coronary artery disease. She has a history of COPD and is on as needed home oxygen therapy. When EMS arrived at her home her saturation was in the 70s. Per the sister, they have all equipments for home oxygen therapy but have not been able to assemble it yet. WBC was 16.5, hemoglobin 6.9 and platelet count of 262. D-dimer was elevated to 2.5, BUN 46 and creatinine 2.1. Lactate was mildly elevated to 2.1. Total bilirubin of 2.4. She received 1 unit of blood in the ED. Today's blood her hemoglobin went down to 6.9. She gave only partial history due to the fact that he is on BiPAP. She says that she has never had a blood transfusion in the past. She says that she does not take any blood thinners. She says she does not have a history of chronic liver disease. She has been on the hospital she was diagnosed with a left lower lobe pneumonia causing exacerbation of her COPD. She is on antibiotics and steroids at this time. [facility] Medical History Anxiety and depression Arthritis Breast lump Cancer Chronic pain Colon cancer COPD (chronic obstructive pulmonary disease) Depression High cholesterol HTN (hypertension) Neuropathy Recurrent UTI Rheumatic fever Rheumatoid arthritis Seasonal allergies Sleep apnea Smoker Smoker Type 2 diabetes mellitus Ulcer of right lower extremity with fat layer exposed Uterine cancer Venous insufficiency of both lower extremities Vision problem Vitamin deficiency Home Medications ergocalciferol (vitamin D2) 1,250 mcg (50,000 unit) capsule 50,000 unit PO MARTELL SUPPLEMENT 02/28/14 [History Last Taken 09/26/23] duloxetine 60 mg capsule,delayed release 60 mg PO DAILY NEUROPATHY 02/17/18 [History Last Taken 01/27/22 08:00] insulin glargine 100 unit/mL subcutaneous solution (Lantus U-100 Insulin) 19 unit subcut QHS dm 03/01/18 [History Last Taken 10/02/23] bupropion HCl 150 mg tablet,12 hr sustained-release 150 mg PO BID depression 08/16/22 [History Last Taken 10/02/23] gabapentin 300 mg capsule 300 mg PO DAILY neuropathy 08/16/22 [History Last Taken 10/02/23] metoprolol succinate 25 mg tablet,extended release 24 hr 25 mg PO DAILY bp 08/16/22 [History Last Taken 10/02/23] pramipexole 0.5 mg tablet 0.5 mg PO QHS Check with primary doctor 08/16/22 [History Last Taken 10/02/23] albuterol sulfate 90 mcg/actuation aerosol inhaler (ProAir HFA) 2 inh inhalation Q4H PRN shortness of breath or wheezing 04/05/23 [History Last Taken 10/02/23] tamsulosin 0.4 mg capsule (Flomax) 0.4 mg PO DAILY 04/05/23 [History Last Taken 10/02/23] atorvastatin 40 mg tablet 40 mg PO DAILY 10/03/23 [History Last Taken 10/02/23] cyanocobalamin (vitamin B-12) 2,500 mcg sublingual lozenge 2,500 mcg sublingual DAILY 10/03/23 [History Last Taken 10/02/23] etanercept 50 mg/mL (1 mL) subcutaneous pen injector (Enbrel SureClick) 50 mg subcut QWEEK 10/03/23 [History Last Taken Unknown] ferrous sulfate 325 mg (65 mg iron) tablet (FeroSul) 325 mg PO .COMPLEX 10/03/23 [History Last Taken Unknown] furosemide 40 mg tablet 40 mg PO Q12H 10/03/23 [History Last Taken 10/02/23] ipratropium 0.5 mg-albuterol 3 mg (2.5 mg base)/3 mL nebulization soln 3 ml con tinuous nebulization Q6H PRN shortness of breath 10/03/23 [History Last Taken 10/02/23] nicotine 14 mg/24 hr daily transdermal patch 1 patch topical Q24H 10/03/23 [History Last Taken 10/02/23] semaglutide 0.25 mg or 0.5 mg (2 mg/3 mL) subcutaneous pen injector (Ozempic) 0.25 mg subcut QWEEK 10/03/23 [History Last Taken Unknown] Allergy/AdvReac Type Severity Reaction Status Date / Time clindamycin Allergy Swelling Verified 10/03/23 13:47 metformin AdvReac Nausea Verified 10/03/23 13:47 Family History (Reviewed 04/05/23 @ 17:29 by Uma Sears PIPELINE MAINTENANCE SUPERVISOR, PIPELINE MAINTENANCE SUPERVISOR-C) Father Arthritis Cancer Diabetes Heart disease Hypertension Mother Hypertension Sister Arthritis Lupus Daughter Kidney stones Surgical History (Reviewed 04/05/23 @ 17:29 by Uma Sears PIPELINE MAINTENANCE SUPERVISOR, PIPELINE MAINTENANCE SUPERVISOR-C) Bowel obstruction History of hysterectomy for cancer tumer removed from colon Social History (Reviewed 04/05/23 @ 17:29 by Uma Sears PIPELINE MAINTENANCE SUPERVISOR, PIPELINE MAINTENANCE SUPERVISOR-C) household members: family Smoking Status: Current every day smoker tobacco type: cigarettes alcohol intake: never substance use type: does not use ROS Constitutional Constitutional: Reports change in weight, chills, fever(s), malaise and weakness Eyes Eyes: Denies blurry vision, change in eye color, change in vision, discharge from eye(s), double vision, erythema, eye pain, loss of vision or other ENT HEENT: Denies abnormal hearing, dysphagia, ear pain, epistaxis, headache(s), hearing loss, nasal congestion, nasal discharge, post nasal drip, sinus pressure, sore throat or other Cardiovascular Cardiovascular: Reports dyspnea on exertion, edema and orthopnea Respiratory/Chest Respiratory/Chest: Reports cough, shortness of breath at rest and shortness of breath with exertion Gastrointestinal Gastrointestinal: Denies abdominal pain, coffee ground emesis, constipation, diarrhea, dyspepsia, hematemesis, hematochezia, loose stools, melena, nausea, vomiting or other Genitourinary Genitourinary: Denies burning urination, difficulty urinating, dysuria, hematuria, nocturia, urinary frequency, urinary hesitancy, urinary incontinence, urinary urgency or other Musculoskeletal Musculoskeletal: Denies arthralgias, back pain, joint pain, joint stiffness, joint swelling, myalgias, neck pain or other Neurologic Neurologic: Denies abnormal gait, abnormal speech, confusion, disequilibrium, dizziness, focal weakness, headache(s), numbness, paresthesias, seizure-like activity, seizures, syncope, tingling, tremor(s) or other Psychiatric Psychiatric: Denies anxiety, depression, homicidal ideation, suicidal ideation or other Endocrine Endocrinology: Denies change in body appearance, cold intolerance, excessive sweating, heat intolerance, polydipsia, polyuria or other Physical Exam Const alert General Appearance: cooperative and ill appearing HEENT normocephalic and head/scalp atraumatic Eyes PERRL, EOMs intact bilaterally and conjunctivae normal Neck supple General: trachea midline Chest inspection of chest normal Resp Effort and Inspection: tachypneic and labored Auscultation: diminished lung sounds Cardio regular rate and regular rhythm GI normal to inspection, nondistended, normoactive bowel sounds Extremity no clubbing, cyanosis or edema Skin no rashes or lesions noted Neuro CN's II-XII intact bilaterally, moves all extremities and no focal motor deficits Psych cooperative and affect normal Lab / Micro Data 10/04/23 04:20 10/04/23 04:20 Labs: Laboratory Results - last 24 hr 10/03/23 14:05: WBC 16.5 H, RBC 2.48 L, Hgb 6.9 L, Hct 22.9 L, MCV 92.3, MCH 27.8, MCHC 30.1 L, RDW Std Deviation 52.3 H, RDW Coeff of Mat 15.8 H, Plt Count 262, MPV 8.9, Immature Gran % (Auto) 2.200 H, Neut % (Auto) 86.2 H, Lymph % (Auto) 5.7 L, [place] % (Auto) 5.7, Eos % (Auto) 0.1, Baso % (Auto) 0.1, Absolute Neuts (auto) 14.2 H, Absolute Lymphs (auto) 0.93, Nucleated RBC % 0, D-Dimer Quant (PE/DVT) 2.56 H*, Sodium 138, Potassium 3.8, Chloride 102, Carbon Dioxide 31.0, Anion Gap 5, BUN 46 H, Creatinine 2.19 H, Estim Creat Clear Calc 29.87, Est GFR (MDRD) Af Amer 29 L, Est GFR (MDRD) Non-Af 24 L, BUN/Creatinine Ratio 21.0 H, Glucose 356 H, Lactic Acid 2.1 H*, Calcium 8.5, Iron 18 L, TIBC 199 L, Total Bilirubin 2.40 H, Direct Bilirubin 1.46 H, AST 14 L, ALT 19, Alkaline Phosphatase 299 H, Troponin I High Sens 16, B-Natriuretic Peptide 344.4 H, Total Protein 6.2 L, Albumin 2.5 L, Globulin 3.7 10/03/23 15:08: Blood Type O POSITIVE, Antibody Screen NEGATIVE, Crossmatch See Detail 10/03/23 15:08: Crossmatch See Detail 10/03/23 17:00: POC Glucose 380 H 10/03/23 17:05: Lactic Acid 1.1 10/03/23 20:00: Hgb 7.5 L, Hct 24.7 L, Lactic Acid 1.4 10/03/23 21:42: POC Glucose 249 H 10/04/23 04:20: WBC 11.6 H, RBC 2.42 L, Hgb 6.9 L, Hct 22.3 L, MCV 92.1, MCH 28.5, MCHC 30.9 L, RDW Std Deviation 52.8 H, RDW Coeff of Mat 15.8 H, Plt Count 219, MPV 8.9, Immature Gran % (Auto) 0.500, Neut % (Auto) 89.8 H, Lymph % (Auto) 4.7 L, [place] % (Auto) 4.7, Eos % (Auto) 0.1, Baso % (Auto) 0.2, Absolute Neuts (auto) 10.4 H, Absolute Lymphs (auto) 0.54 L, Nucleated RBC % 0.2, Differential Comment SCANNED, Toxic Granulation 1+, PT 15.8 H, INR 1.3, Sodium 135 L, Potassium 3.9, Chloride 100, Carbon Dioxide 33.0 H, Anion Gap 2 L, BUN 51 H, Creatinine 2.15 H, Estim Creat Clear Calc 29.90, Est GFR (MDRD) Af Amer 30 L, Est GFR (MDRD) Non-Af 25 L, BUN/Creatinine Ratio 23.7 H, Glucose 234 H, Calcium 8.3 L, Phosphorus 4.7, Magnesium 1.6, Total Bilirubin 1.60 H, Direct Bilirubin 1.10 H, AST 12 L, ALT 13, Alkaline Phosphatase 243 H, Total Protein 5.7 L, Albumin 2.2 L, Globulin 3.5, Albumin/Globulin Ratio 0.6 L, TSH 0.79 10/04/23 06:12: POC Glucose 207 H 10/04/23 11:42: POC Glucose 213 H Micro: Microbiology 10/03/23 14:05 Blood Culture (Wb) #2 - Anticubital Right Blood Culture - Preliminary 10/03/23 14:05 Blood Culture (Wb) - Anticubital Left Blood Culture - Preliminary 10/04/23 09:00 Urine Catheter - Gaffney Legionella Antigen - Final 10/04/23 09:00 Urine Catheter - Gaffney Streptococcus pneumoniae Antigen (M - Final 10/03/23 15:04 Stool Stool Occult Blood (SALLY) - Final Occult Blood Positive 10/03/23 14:05 Mucosa - Nasopharyngeal SARS-CoV-2, Influenza & RSV (PCR) - Final ABG Data ABG results: ABG 10/03/23 14:50 Specimen Type ART Sample Site L Radial pH 7.32 L Bicarbonate Actual 29.0 H Total CO2 31 Base Excess 3 H O2 Saturation 92 L O2 % 5.0 ABG pCO2 56.5 H ABG pO2 70 L Chapo Test Positive O2 Delivery Device HFNC Vent Mode Not entered Imaging Radiology Impression Chest X-Ray 10/03/23 14:25 IMPRESSION: Left pleural effusion. Left infiltrate or atelectasis in the lower lobe. Electronically Signed: Reid Mckeon MD at 14:47 EST Reading Location ID and State: [facility] / [place] , Service support , Assessment & Plan Assessment/Plan (1) CHF (congestive heart failure): PLAN: Plan 63-year-old female with recent lumbar surgery, rheumatoid arthritis on etanercept and prior history of COPD presents with worsening shortness of breath, drowsiness, leukocytosis, elevated BNP and radiology findings of left- sided pleural effusion with suspected infiltrates. Acute shortness of breath is likely multifactorial secondary to COPD exacerbation, left lower lobe pneumonia, acute blood loss anemia. At this time she is on BiPAP She is off of BiPAP she is satting 94% on 8 L. I would like to see her oxygen requirements go down prior to her getting an upper endoscopy for possible upper GI bleed. If that was normal then she will need a colonoscopy and capsule endoscopy. For now continue PPI as previously ordered. See what her hemoglobin is after transfusion. Watch for signs and symptoms of fluid overload in the setting of steroids and antibiotics for community aquired pneumonia. Acute on chronic anemia: Iron deficiency anemia versus anemia of chronic disease -Hemoglobin was 9.4 on 08/26/2022 and there has been a gradual decline to 6.9 -JOSÉ MIGUEL was negative for acute bleeding but Hemoccult was positive -Iron plus TIBC levels -Transfuse to maintain hemoglobin greater than 7 Charges/Coding Visit Charges Inpatient E&M: 63259 Init Hosp L3
--- NOTE | 2023-10-04 14:30 | CASEMGMT ---
RN HUDSON Face to Face with patient for initial transition planning/care coordination assessment. RN CM introduced self and role at [facility]. Patient sitting in chair, alert and oriented. Patient willing to participate in assessment and is able to answer all questions appropriately. Care providers, pharmacy, and demographics verified. Patient wishes to discharge home, will monitor for HHC vs SNF. Patient states she has no further needs or concerns at this time. CM to follow for discharge planning needs that may arise. 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 Patient states she is independent but daughter helps at time. Transportation: daughter DME/HHC: Patient has rollator and glucometer at home. No previous HHC or SNF Disposition Plan: TBD, anticipate HHC vs SNF pending course of treatment and progress with therapy. Tiana ADHIKARI, RN, CM
[2023-10-04] MEDS: Albuterol 2.5 MG/3 ML VIAL.NEB. INHALATION (15:46)
[2023-10-04] MEDS: Piperacil/Tazobactam 3.375 GM in 0.9% Normal Saline (50mL MB+) 50 ML IV ×2 (15:46→21:19)
[2023-10-04] MEDS: oxyCODONE 5 MG Tablet 10 MG PO (16:33)
--- NOTE | 2023-10-04 16:37 | CHAPLAIN ---
Type of Pastoral Visit _x__ Initial Visit ___ Follow-up Visit ___ On-call Visit ___ General Patient Visit ___ Spiritual Assessment ___ Family Conference ___ Bereavement ___ Rapid Response ___ Code Blue ___ Other (describe below) Pastoral Care Referral From ___ Patient ___ Family _x__ Nurse ___ Physician ___ Physiotherapy Aide ___ Child And Family Services Worker ___ Other (describe below) Sacrament/Intervention _x__ Active listening ___ Anointing ___ Adventist ___ Bereavement ___ Communion ___ Kamille exploration ___ ___ Life review _x__ Prayer ___ Reconciliation ___ Sacrament of Sick ___ Supportive presence ___ Wedding ___ Other (describe below) Pastoral Comments RN recommended visit of support to this patient who was having a hard time being in the hospital and had been crying; introduction to pt and offer of presence and support; pt rarely opened her eyes and often spoke out loud but to no one in particular; pt was able to answer questions appropriately and stated several times that she just wanted to go home; pt did welcome prayers for her support; when asked about what would pt need the pt responded probably just quiet ;
[2023-10-04 16:50] LABS: Bedside Glucose 291 mg/dL (74-106)
[2023-10-04] MEDS: Ipratropium/Albuterol Sulfate 3 ML AMPUL.NEB INHALATION (19:34)
[2023-10-04] MEDS: Atorvastatin Calcium 40 MG Tablet PO (21:11)
[2023-10-04] MEDS: Insulin Glargine-YFGN 100 UNIT/ML Pen 19 UNIT SC (21:15)
[2023-10-04 21:37] LABS: Bedside Glucose 231 mg/dL (74-106)
[2023-10-05] VITALS (42 sets, daily range): BP systolic 102–159; BP diastolic 44–105; PULSE 80–167; RESP 14–28; TEMP 35.8–36.9; O2SAT 91–100; BMI 38.7
[2023-10-05] MEDS: Ipratropium/Albuterol Sulfate 3 ML AMPUL.NEB INHALATION ×4 (01:27→18:45)
[2023-10-05 03:01] LABS: Absolute Lymphocyte Count 0.33 X10^3/uL (0.83-4.51); Absolute Neutrophil Count 10.1 X10^3/uL (2.0-7.7); Basophil# 0.03 X10^3/uL; Basophil% 0.3 % (0-1); Eosinophil# 0.01 X10^3/uL; Eosinophils% 0.1 % (0-5); Hematocrit 24.2 % (37-47); Hemoglobin 7.3 g/dL (12.0-15.0); Lymphocyte # 0.33 X10^3/ul (0.83-4.51); Lymphocyte % 2.9 % (19-41); Mean Corp Hgb Conc 30.2 g/dL (32-36); Mean Corpuscular Hgb 27.7 pg (27.0-32.0); Mean Corpuscular Volume 91.7 fL (81-99); Mean Platelet Vol. 8.8 fl (6.2-12.0); Monocyte# 0.57 X10^3/uL; NRBC Flagged by Analyzer 0 % (0-5); Neutrophil # 10.12 X10^3/uL (2.7-7.7); Neutrophil % 89.7 % (47-70); POSITIVE DIFFERENTIAL YES; POSITIVE MORPHOLOGY YES; Platelet Count 202 K/mm3 (150-450); RBC Distribution Width SD 52.7 fl (35.1-43.9); Red Blood Count 2.64 M/mm3 (4.2-5.4); White Blood Count 11.3 K/mm3 (4.4-11.0)
[2023-10-05 03:05] LABS: Differential Indicated SCAN CRITERIA MET
[2023-10-05 03:11] LABS: Bedside Glucose 258 mg/dL (74-106)
[2023-10-05 03:15] LABS: Anion Gap 5 (5-15); BUN 60 mg/dL (7-18); BUN/Creat Ratio 23.9 RATIO (10-20); Calcium,Total 8.4 mg/dL (8.5-10.1); Chloride 102 mmol/L (98-107); Creatinine, Serum 2.51 mg/dL (0.55-1.02); EST Glomerular Filtration Rate 21 mL/min (>60); Est Glom Filt Rate - Afr Amer 25 mL/min (>60); Estimated Creatinine Clearance 25.61 ml/min; Glucose 266 mg/dL (74-106); Magnesium 1.6 mg/dL (1.6-2.6); Phosphorus 4.3 mg/dL (2.5-4.9); Potassium 3.9 mmol/L (3.5-5.1); Sodium Level 136 mmol/L (136-145)
[2023-10-05] MEDS: Metoprolol Tartrate 5 MG/5 ML Vial IV ×2 (03:19→09:47)
[2023-10-05] MEDS: Insulin Lispro 100 UNIT/ML INSULN.PEN SC ×5 (03:20→23:25)
[2023-10-05] MEDS: Piperacil/Tazobactam 3.375 GM in 0.9% Normal Saline (50mL MB+) 50 ML IV ×3 (05:00→20:43)
[2023-10-05] MEDS: 0.9% Saline Lock 10 ML Syringe IV ×3 (06:14→09:47)
[2023-10-05] MEDS: Diltiazem 125 MG in Dextrose 5%-Water (100mL Bag) 100 ML CONT INF (06:15)
--- NOTE | 2023-10-05 06:56 | PCM.PN.INT ---
Assessment & Plan Assessment/Plan (1) Hypoxemia: PLAN: Plan RECOMMENDATIONS: 1. Continue supplemental oxygen to maintain saturations at or above 90%. 2. Obtain follow-up ABG and adjust BiPAP settings as needed. 3. Bolus amiodarone and start continuous infusion. Obtain cardiology consultation. 4. Continue to monitor H&H. Transfuse for hemoglobin less than 7 g/dL. 5. Continue PPI therapy. 6. Continue antibiotics and bronchodilators. IMPRESSIONS: 1. Acute on chronic hypoxemic respiratory failure Most likely multifactorial in etiology. I do suspect that the patient's presenting anemia is likely contributing to her hypoxemia and shortness of breath, along with underlying COPD which is likely in a state of exacerbation due to underlying left lower lobe pneumonia. For now, the patient will be continued on antibiotics and bronchodilators. While she does have a history of COPD of unclear severity, the patient is only utilizing albuterol as needed at her baseline. Therefore, her disease is certainly not being adequately addressed on an outpatient basis. She would be a candidate for a maintenance medication, if she truly has underlying obstructive lung disease. However, I will defer this decision making to her primary internal control specialist in [place]. In the interim, we will continue supplemental oxygen along with intermittent use of noninvasive positive pressure ventilatory support, as needed. 2. Atrial fibrillation with RVR Initiate rate/rhythm control strategy with amiodarone as ordered. Cardiology consultation will be obtained. 3. Anemia Continue to monitor H&H. Transfuse if hemoglobin drops below 7 g/dL. Continue PPI therapy. Gastroenterology is following. 4. History of obstructive sleep apnea The patient reports noncompliance with nocturnal PAP therapy. Recommend continuing BiPAP therapy, as ordered, throughout the day as needed and nightly. 5. Recent lumbar spine surgery/history of rheumatoid arthritis on etanercept/chronic kidney disease/diabetes mellitus/tobacco dependency Complicates care, management, recovery and prognosis. Continue supportive measures as noted above. TIME: 35 minutes of critical care time, independent of procedures, was spent addressing the patient's acute on chronic hypoxemic respiratory failure, atrial fibrillation with RVR, anemia, review of all data and collaboration with care team. Subjective Subjective The patient was seen and examined at the bedside this morning. Events from the last 24 hours have been reviewed. The patient is currently afebrile, hemodynamically stable and maintaining appropriate oxygen saturations on BiPAP with an FiO2 requirement of 45%. The patient developed atrial fibrillation with RVR overnight. Attempt was made to medically manage the dysrhythmia with Lopressor and Cardizem. Hemoglobin is stable at 7.3 g/dL. Creatinine has increased to 2.5 with a BUN of 60. Over the course of the morning and early afternoon, the patient continued to remain lethargic, despite optimization of her BiPAP settings. Therefore, the decision was made to proceed with intubation. She did have a significant amount of copious secretions noted upon intubation. Objective Data Objective Data The patient's most recent lab work, culture data and imaging studies have all been personally reviewed. Surface echocardiogram dated October 04 demonstrated moderate concentric LVH with an ejection fraction of 60%. Vital Signs: Vital Signs Temp Pulse Resp BP Pulse Ox O2 Del Method O2 Flow Rate 98 F 145 H 22 H 116/71 98 Bi-pap 8 10/05/23 04:00 10/05/23 06:47 10/05/23 06:47 10/05/23 06:00 10/05/23 06:47 10/05/23 06:00 10/04/23 17:00 FiO2 45 10/05/23 06:47 Oxygen Flow Rate (L/min) 8 Oxygen Delivery Method Bi-pap Weight: 218 lb 11.177 oz Body Mass Index (BMI) 38.7 Intake & Output: Intake and Output for Last 24 Hours 10/03/23 10/04/23 10/05/23 23:59 23:59 23:59 Intake Total 305 / 305 1156 / 1156 50 / 50 Output Total 550 / 550 910 / 910 70 / 70 Balance -245 / -245 246 / 246 -20 / -20 Lab / Micro Data Attestation: I reviewed the patient's lab results. 10/05/23 02:56 10/05/23 02:56 Labs: Laboratory Results - last 24 hr 10/03/23 15:08: Crossmatch See Detail 10/03/23 15:08: Crossmatch See Detail 10/04/23 04:20: WBC 11.6 H, RBC 2.42 L, Hgb 6.9 L, Hct 22.3 L, MCV 92.1, MCH 28.5, MCHC 30.9 L, RDW Std Deviation 52.8 H, RDW Coeff of Mat 15.8 H, Plt Count 219, MPV 8.9, Immature Gran % (Auto) 0.500, Neut % (Auto) 89.8 H, Lymph % (Auto) 4.7 L, [place] % (Auto) 4.7, Eos % (Auto) 0.1, Baso % (Auto) 0.2, Absolute Neuts (auto) 10.4 H, Absolute Lymphs (auto) 0.54 L, Nucleated RBC % 0.2, Differential Comment SCANNED, Toxic Granulation 1+ 10/04/23 11:42: POC Glucose 213 H 10/04/23 16:28: POC Glucose 291 H 10/04/23 21:14: POC Glucose 231 H 10/05/23 02:53: POC Glucose 258 H 10/05/23 02:56: WBC 11.3 H, RBC 2.64 L, Hgb 7.3 L, Hct 24.2 L, MCV 91.7, MCH 27.7, MCHC 30.2 L, RDW Std Deviation 52.7 H, RDW Coeff of Mat 16.0 H, Plt Count 202, MPV 8.8, Immature Gran % (Auto) 2.000 H, Neut % (Auto) 89.7 H, Lymph % (Auto) 2.9 L, [place] % (Auto) 5.0, Eos % (Auto) 0.1, Baso % (Auto) 0.3, Absolute Neuts (auto) 10.1 H, Absolute Lymphs (auto) 0.33 L, Nucleated RBC % 0, Sodium 136, Potassium 3.9, Chloride 102, Carbon Dioxide 29.0, Anion Gap 5, BUN 60 H, Creatinine 2.51 H, Estim Creat Clear Calc 25.61, Est GFR (MDRD) Af Amer 25 L, Est GFR (MDRD) Non-Af 21 L, BUN/Creatinine Ratio 23.9 H, Glucose 266 H, Calcium 8.4 L, Phosphorus 4.3, Magnesium 1.6 Micro: Microbiology 10/03/23 14:05 Blood Culture (Wb) #2 - Anticubital Right Blood Culture - Preliminary 10/03/23 14:05 Blood Culture (Wb) - Anticubital Left Blood Culture - Preliminary 10/04/23 09:00 Urine Catheter - Gaffney Legionella Antigen - Final 10/04/23 09:00 Urine Catheter - Gaffney Streptococcus pneumoniae Antigen (M - Final 10/03/23 15:04 Stool Stool Occult Blood (SALLY) - Final Occult Blood Positive 10/03/23 14:05 Mucosa - Nasopharyngeal SARS-CoV-2, Influenza & RSV (PCR) - Final Radiography Diagnostic Testing: Radiology Impression Echocardiogram 10/03/23 18:20 Interpretation Summary Moderate concentric left ventricular hypertrophy. The left ventricular ejection fraction is 60 %. Diastolic function is indeterminate. Mild aortic stenosis. Mild (1+) mitral valve insufficiency. Ordering Physician: Rayne Hdez Referring Physician: OTD Performed By: Soumya Madera RDCS Venous Doppler Study 10/04/23 11:04 Interpretation Summary Deep veins of the bilateral lower extremities are patent and compressible segmentally. There is no evidence of bilateral lower extremity deep vein thrombosis. The bilateral great saphenous veins appear patent and compressible segmentally. Ordering Physician: Bc Parker Performed By: Tiana Barragan RVT Physical Exam Const Constitutional Narrative: Appears more somnolent than yesterday BiPAP. General Appearance: ill appearing HEENT normocephalic and head/scalp atraumatic Eyes PERRL, EOMs intact bilaterally and conjunctivae normal Neck supple General: trachea midline Chest inspection of chest normal Resp Effort and Inspection: tachypneic Auscultation: diminished lung sounds; Negative for rales, rhonchi or wheezes Cardio Rate: tachycardic Rhythm: abnormal rhythm GI normal to inspection, nondistended, normoactive bowel sounds Extremity no clubbing, cyanosis or edema Skin no rashes or lesions noted Neuro CN's II-XII intact bilaterally, moves all extremities and no focal motor deficits Psych cooperative and affect normal Charges/Coding Procedures Hospitalists Procedures: 73071 Critical Care 1st Hr
[2023-10-05] MEDS: Amiodarone 150 MG in Dextrose 5%-Water (100mL Bag) 100 ML 600 MG IV BOLUS (07:06)
[2023-10-05] MEDS: Amiodarone 360 MG in Dextrose 5% Viaflo Bag 192.8 ML 33.2999999999999972 MG CONT INF (07:15)
--- NOTE | 2023-10-05 07:35 | PCM.PN.HOSP ---
Reason for Visit Reason for Visit: Diagnoses Heart failure, unspecified (10/03/23) Hypoxemia (10/03/23) Subjective Subjective Patient went into A-fib with RVR during the night had to be started on amiodarone drip Objective Data Objective Data Vital Signs: Vital Signs Temp Pulse Resp BP Pulse Ox O2 Del Method O2 Flow Rate 98 F 145 H 22 H 116/71 98 Bi-pap 8 10/05/23 04:00 10/05/23 06:47 10/05/23 06:47 10/05/23 06:00 10/05/23 06:47 10/05/23 06:00 10/04/23 17:00 FiO2 45 10/05/23 06:47 Oxygen Flow Rate (L/min) 8 Oxygen Delivery Method Bi-pap Weight: 99.2 kg Body Mass Index (BMI) 38.7 Intake & Output: Intake and Output for Last 24 Hours 10/03/23 10/04/23 10/05/23 23:59 23:59 23:59 Intake Total 305 / 305 1156 / 1156 157.08 / 157.08 Output Total 550 / 550 910 / 910 70 / 70 Balance -245 / -245 246 / 246 87.08 / 87.08 Lab / Micro Data 10/05/23 02:56 10/05/23 02:56 Labs: Laboratory Results - last 24 hr 10/03/23 15:08: Crossmatch See Detail 10/03/23 15:08: Crossmatch See Detail 10/04/23 04:20: Differential Comment SCANNED, Toxic Granulation 1+ 10/04/23 11:42: POC Glucose 213 H 10/04/23 16:28: POC Glucose 291 H 10/04/23 21:14: POC Glucose 231 H 10/05/23 02:53: POC Glucose 258 H 10/05/23 02:56: WBC 11.3 H, RBC 2.64 L, Hgb 7.3 L, Hct 24.2 L, MCV 91.7, MCH 27.7, MCHC 30.2 L, RDW Std Deviation 52.7 H, RDW Coeff of Mat 16.0 H, Plt Count 202, MPV 8.8, Immature Gran % (Auto) 2.000 H, Neut % (Auto) 89.7 H, Lymph % (Auto) 2.9 L, [place] % (Auto) 5.0, Eos % (Auto) 0.1, Baso % (Auto) 0.3, Absolute Neuts (auto) 10.1 H, Absolute Lymphs (auto) 0.33 L, Nucleated RBC % 0, Sodium 136, Potassium 3.9, Chloride 102, Carbon Dioxide 29.0, Anion Gap 5, BUN 60 H, Creatinine 2.51 H, Estim Creat Clear Calc 25.61, Est GFR (MDRD) Af Amer 25 L, Est GFR (MDRD) Non-Af 21 L, BUN/Creatinine Ratio 23.9 H, Glucose 266 H, Calcium 8.4 L, Phosphorus 4.3, Magnesium 1.6 Micro: Microbiology 10/03/23 14:05 Blood Culture (Wb) #2 - Anticubital Right Blood Culture - Preliminary 10/03/23 14:05 Blood Culture (Wb) - Anticubital Left Blood Culture - Preliminary 10/04/23 09:00 Urine Catheter - Gaffney Legionella Antigen - Final 10/04/23 09:00 Urine Catheter - Gaffney Streptococcus pneumoniae Antigen (M - Final 10/03/23 15:04 Stool Stool Occult Blood (SALLY) - Final Occult Blood Positive 10/03/23 14:05 Mucosa - Nasopharyngeal SARS-CoV-2, Influenza & RSV (PCR) - Final Radiography Diagnostic Testing: Radiology Impression Echocardiogram 10/03/23 18:20 Interpretation Summary Moderate concentric left ventricular hypertrophy. The left ventricular ejection fraction is 60 %. Diastolic function is indeterminate. Mild aortic stenosis. Mild (1+) mitral valve insufficiency. Ordering Physician: Rayne Hdez Referring Physician: OTD Performed By: Soumya Madera RDCS Venous Doppler Study 10/04/23 11:04 Interpretation Summary Deep veins of the bilateral lower extremities are patent and compressible segmentally. There is no evidence of bilateral lower extremity deep vein thrombosis. The bilateral great saphenous veins appear patent and compressible segmentally. Ordering Physician: Bc Parker Performed By: Tiana Barragan RVT Physical Exam Narrative GENERAL: Lethargic HEENT: Atraumatic; normocephalic EYES; Anicteric, Normal Conjunctiva NECK; supple, normal thyroid, RESPIRATORY: Diminished to auscultation CARDIOVASCULAR: Regular S1 S2, GI: soft, normoactive bowel sounds, : No Renal angle tenderness; EXTREMITIES: No edema, no clubbing, MUSCULOSKELETAL: no muscle wasting NEURO: no lateralizing signs. SKIN: No Rash PSYCH; Flat affect Assessment & Plan Assessment/Plan (1) CHF (congestive heart failure): PLAN: Plan 63-year-old female with recent lumbar surgery, rheumatoid arthritis on etanercept and prior history of COPD presents with worsening shortness of breath, drowsiness, leukocytosis, elevated BNP and radiology findings of left-sided pleural effusion with suspected infiltrates. 1. Acute hypoxic respiratory failure ?Suspected to be secondary to pneumonia with multidrug-resistant organism given patient immunosuppressive status. Admitted to the intensive care unit placed on noninvasive ventilation with BiPAP with consultation placed pulmonary medicine ? 10/05/2023; patient remains on BiPAP. 2. Pneumonia with suspected multidrug resistance organism ? Patient started on ceftriaxone and azithromycin, adjusted antibiotic therapy with addition of vancomycin 3. Elevated D-dimer ? With high suspicion for VTE. Bilateral venous Doppler ordered. CTA could not be ordered given patient impaired kidney function ? 10/05/2023; bilateral venous duplex negative for DVT; patient systemic anticoagulation with heparin discontinued subsequently started on Lovenox dose adjusted for kidney function 4. Acute metabolic encephalopathy ? Secondary to acute hypoxic respiratory failure 5. New onset paroxysmal A-fib with RVR ? 10/05/2023. Patient did not respond to Lopressor and Cardizem had to be started on amiodarone drip 6. Chronic kidney disease stage IV ? Patient creatinine has fluctuated in the past and did require transient hemodialysis. Creatinine on admission was 2.19 downto 2.15 7. Anemia - Secondary to chronic disorder/iron deficiency anemia. Patient hemoglobin on admission was 6.9. Did receive transfusion with 1 unit PRBC. Subsequently monitoring H&H and transfuse if patient becomes symptomatic or hemoglobin falls below 7. Patient apparently had rectal exams in the emergency department which was Hemoccult negative ? 10/05/[address] Martin with GI plan is for patient to undergo upper endoscopic evaluation when medically stable 8. Diabetes mellitus type 2 ? With complications including diabetic nephropathy as well as diabetic polyneuropathy. Held patient oral agents placed on long-acting insulin with sliding scale coverage 9. Rheumatoid arthritis ? Patient is on etanercept [place] q. weekly 10. Dyslipidemia -Patient is on statin therapy, continued at home dose 11. Tobacco dependence - Counseled on cessation, offered nicotine patch for tobacco cravings 12. Acute kidney injury ruled out 13. Class II obesity with BMI of 38 ? Weight loss advised 14. Essential hypertension ? Patient blood pressure control remains labile 19. DVT prophylaxis ? Patient on Lovenox Time spent in the patient's overall evaluation,decision-making process, review of diagnostic data, adjustment of management, discussion with other providers, nursing nursing and ancillary staff involved in patient's care documentation, 50 Minutes Charges/Coding Visit Charges Inpatient E&M: 23089 Subs Hosp L3
--- NOTE | 2023-10-05 07:53 | PCM.CONS.C ---
Assessment & Plan Assessment/Plan (1) Paroxysmal atrial fibrillation: PLAN: The patient's atrial fibrillation was probably precipitated by her multifactorial metabolic derangements she has hypoxic on ventilatory support she is anemic has COPD. The secondary metabolic derangements are being corrected. In the interim we should place her on IV amiodarone for rate control and hopefully conversion back to sinus rhythm. Her echo shows an ejection fraction of 60% with mild aortic stenosis 1+ mitral regurg and mild biatrial enlargement. This suggest that controlling her secondary causes we should be able to convert her back to sinus rhythm. (2) Hypoxemia: PLAN: The patient is on mechanical ventilatory support at the direction of the narcotics investigator. (3) Anemia: QUALIFIERS: Anemia type: unspecified type Qualified Code(s): D64.9 - Anemia, unspecified PLAN: The patient's anemia is being addressed by the primary service. (4) CHF (congestive heart failure): QUALIFIERS: Heart failure type: diastolic Heart failure chronicity: chronic Qualified Code(s): I50.32 - Chronic diastolic (congestive) heart failure PLAN: The patient has a history of congestive heart failure this appears to be heart failure with preserved ejection fraction based on her echo done 10/04/2023. She does have mild aortic stenosis which needs to be monitored long-term. The atrial fibrillation anemia COPD and respiratory failure with hypoxia are all going to exact exacerbate the potential for decompensation of her heart failure. The patient will need to be monitored for volume overload that at this point in time it appears that she is probably euvolemic. PLAN: Plan Load the patient and continue IV amiodarone drip per the protocol. Reinstitute home beta-lisa therapy when appropriate. Continue to address her hypoxia anemia and COPD as drivers of the atrial fibrillation. Obtain an EKG when the patient converts back to sinus rhythm. HPI Consult Data Date of Consult: 10/05/23 HPI Narrative Reason for Consultation: Atrial fibs with rapid ventricular response HPI Narrative: WENDI ADDISON, is a 63 F who presents patient presented with respiratory failure she has obstructive sleep apnea is noncompliant with her home treatment. She also is anemic she has a history of COPD and initially presented in normal sinus rhythm with a heart rate of 90 with nonspecific T wave changes on October 03. Last evening while on noninvasive ventilatory support the patient developed atrial fibrillation with a rapid ventricular sponsor in the 1 40-1 50 range. She had increasing nonspecific ST-T wave changes in the lateral leads consistent with her rate. She is unable to give me answers she is lethargic but arousable. The patient had echocardiogram done 10/04/2023 which showed normal LV size with an EF of 60%. Mild aortic stenosis with a peak gradient of 22 mean of 12 1+ mitral regurgitation mild biatrial enlargement. [facility] Medical History Anxiety and depression Arthritis Breast lump Cancer Chronic pain Colon cancer COPD (chronic obstructive pulmonary disease) Depression High cholesterol HTN (hypertension) Neuropathy Recurrent UTI Rheumatic fever Rheumatoid arthritis Seasonal allergies Sleep apnea Smoker Smoker Type 2 diabetes mellitus Ulcer of right lower extremity with fat layer exposed Uterine cancer Venous insufficiency of both lower extremities Vision problem Vitamin deficiency Home Medications ergocalciferol (vitamin D2) 1,250 mcg (50,000 unit) capsule 50,000 unit PO MARTELL SUPPLEMENT 02/28/14 [History Last Taken 09/26/23] duloxetine 60 mg capsule,delayed release 60 mg PO DAILY NEUROPATHY 02/17/18 [History Last Taken 01/27/22 08:00] insulin glargine 100 unit/mL subcutaneous solution (Lantus U-100 Insulin) 19 unit subcut QHS dm 03/01/18 [History Last Taken 10/02/23] bupropion HCl 150 mg tablet,12 hr sustained-release 150 mg PO BID depression 08/16/22 [History Last Taken 10/02/23] gabapentin 300 mg capsule 300 mg PO DAILY neuropathy 08/16/22 [History Last Taken 10/02/23] metoprolol succinate 25 mg tablet,extended release 24 hr 25 mg PO DAILY bp 08/16/22 [History Last Taken 10/02/23] pramipexole 0.5 mg tablet 0.5 mg PO QHS Check with primary doctor 08/16/22 [History Last Taken 10/02/23] albuterol sulfate 90 mcg/actuation aerosol inhaler (ProAir HFA) 2 inh inhalation Q4H PRN shortness of breath or wheezing 04/05/23 [History Last Taken 10/02/23] tamsulosin 0.4 mg capsule (Flomax) 0.4 mg PO DAILY 04/05/23 [History Last Taken 10/02/23] atorvastatin 40 mg tablet 40 mg PO DAILY 10/03/23 [History Last Taken 10/02/23] cyanocobalamin (vitamin B-12) 2,500 mcg sublingual lozenge 2,500 mcg sublingual DAILY 10/03/23 [History Last Taken 10/02/23] etanercept 50 mg/mL (1 mL) subcutaneous pen injector (Enbrel SureClick) 50 mg subcut QWEEK 10/03/23 [History Last Taken Unknown] ferrous sulfate 325 mg (65 mg iron) tablet (FeroSul) 325 mg PO .COMPLEX 10/03/23 [History Last Taken Unknown] furosemide 40 mg tablet 40 mg PO Q12H 10/03/23 [History Last Taken 10/02/23] ipratropium 0.5 mg-albuterol 3 mg (2.5 mg base)/3 mL nebulization soln 3 ml continuous nebulization Q6H PRN shortness of breath 10/03/23 [History Last Taken 10/02/23] nicotine 14 mg/24 hr daily transdermal patch 1 patch topical Q24H 10/03/23 [History Last Taken 10/02/23] semaglutide 0.25 mg or 0.5 mg (2 mg/3 mL) subcutaneous pen injector (Ozempic) 0.25 mg subcut QWEEK 10/03/23 [History Last Taken Unknown] Allergy/AdvReac Type Severity Reaction Status Date / Time clindamycin Allergy Swelling Verified 10/03/23 13:47 metformin AdvReac Nausea Verified 10/03/23 13:47 Family History Father Arthritis Cancer Diabetes Heart disease Hypertension Mother Hypertension Sister Arthritis Lupus Daughter Kidney stones unable to obtain Surgical History Bowel obstruction History of hysterectomy for cancer tumer removed from colon Social History household members: family Smoking Status: Current every day smoker tobacco type: cigarettes alcohol intake: never substance use type: does not use ROS Review of Systems ROS Unobtainable: due to mental status Physical Exam Narrative Morbidly obese lethargic white female resting recumbent in the bed. Const alert, oriented x3, no apparent distress and healthy appearing Constitutional Narrative: Patient is not responsive to questions. General Appearance: other HEENT normocephalic Eyes Eyes Narrative: Not observed the patient's eyes are closed. Neck no JVD and no carotid bruits Chest inspection of chest normal Resp Effort and Inspection: uses accessory muscles Auscultation: rhonchi throughout and wheezes throughout Cardio Rate: tachycardic Rhythm: abnormal rhythm irregularly irregular Heart Sounds: S1 normal, S2 normal and murmur systolic II/ harsh left sternal border and right sternal border; Negative for click or gallop GI GI Narrative: Accessory respiratory effort noted. Extremity General Extremity: edema bilateral (2+ with skin turgor evidence of receding edema.) lower extremity Skin Skin Narrative: Noted tenting of the lower extremity skin consistent with receding edema. Neuro Neuro Narrative: Lethargic and not responsive to verbal stimulation. Psych Attention / Concentration: attention grossly impaired Risk Stratification Risk Stratification Applicable: No Charges/Coding Visit Charges Inpatient E&M: 80994 Init Hosp L3 Objective Data Vital Signs: Vital Signs Temp Pulse Resp BP Pulse Ox O2 Del Method O2 Flow Rate 98 F 145 H 22 H 116/71 98 Bi-pap 8 10/05/23 04:00 10/05/23 06:47 10/05/23 06:47 10/05/23 06:00 10/05/23 06:47 10/05/23 06:00 10/04/23 17:00 FiO2 45 10/05/23 06:47 Oxygen Flow Rate (L/min) 8 Oxygen Delivery Method Bi-pap Weight: 218 lb 11.177 oz Body Mass Index (BMI) 38.7 Intake & Output: Intake and Output for Last 24 Hours 10/03/23 10/04/23 10/05/23 23:59 23:59 23:59 Intake Total 305 / 305 1156 / 1156 157.08 / 157.08 Output Total 550 / 550 910 / 910 70 / 70 Balance -245 / -245 246 / 246 87.08 / 87.08 Lab / Micro Data 10/05/23 02:56 10/05/23 02:56 Labs: Laboratory Results - last 24 hr 10/03/23 15:08: Crossmatch See Detail 10/03/23 15:08: Crossmatch See Detail 10/04/23 04:20: Differential Comment SCANNED, Toxic Granulation 1+ 10/04/23 11:42: POC Glucose 213 H 10/04/23 16:28: POC Glucose 291 H 10/04/23 21:14: POC Glucose 231 H 10/05/23 02:53: POC Glucose 258 H 10/05/23 02:56: WBC 11.3 H, RBC 2.64 L, Hgb 7.3 L, Hct 24.2 L, MCV 91.7, MCH 27.7, MCHC 30.2 L, RDW Std Deviation 52.7 H, RDW Coeff of Mat 16.0 H, Plt Count 202, MPV 8.8, Immature Gran % (Auto) 2.000 H, Neut % (Auto) 89.7 H, Lymph % (Auto) 2.9 L, [place] % (Auto) 5.0, Eos % (Auto) 0.1, Baso % (Auto) 0.3, Absolute Neuts (auto) 10.1 H, Absolute Lymphs (auto) 0.33 L, Nucleated RBC % 0, Sodium 136, Potassium 3.9, Chloride 102, Carbon Dioxide 29.0, Anion Gap 5, BUN 60 H, Creatinine 2.51 H, Estim Creat Clear Calc 25.61, Est GFR (MDRD) Af Amer 25 L, Est GFR (MDRD) Non-Af 21 L, BUN/Creatinine Ratio 23.9 H, Glucose 266 H, Calcium 8.4 L, Phosphorus 4.3, Magnesium 1.6 Micro: Microbiology 10/03/23 14:05 Blood Culture (Wb) #2 - Anticubital Right Blood Culture - Preliminary 10/03/23 14:05 Blood Culture (Wb) - Anticubital Left Blood Culture - Preliminary 10/04/23 09:00 Urine Catheter - Gaffney Legionella Antigen - Final 10/04/23 09:00 Urine Catheter - Gaffney Streptococcus pneumoniae Antigen (M - Final Rhythm Strip Rhythm Strip: A-fib Rate: 145 Cardiology Labs/Tests 10/05/23 02:56: WBC 11.3 H, RBC 2.64 L, Hgb 7.3 L, Hct 24.2 L, MCV 91.7, MCH 27.7, MCHC 30.2 L, Plt Count 202, MPV 8.8, Immature Gran % (Auto) 2.000 H, Neut % (Auto) 89.7 H, Lymph % (Auto) 2.9 L, [place] % (Auto) 5.0, Eos % (Auto) 0.1, Baso % (Auto) 0.3, Absolute Neuts (auto) 10.1 H, Nucleated RBC % 0, Sodium 136, Potassium 3.9, Chloride 102, Carbon Dioxide 29.0, Anion Gap 5, BUN 60 H, Creatinine 2.51 H, Est GFR (MDRD) Af Amer 25 L, Est GFR (MDRD) Non-Af 21 L, BUN/Creatinine Ratio 23.9 H, Glucose 266 H, Calcium 8.4 L, Phosphorus 4.3, Magnesium 1.6 Rhythm: EKG: ECHO: Stress Test: Cardiac Cath: PCI: CT Surgery: Holter monitor: EPS: PPM: CXR: Chest CT Scan: Radiography Diagnostic Testing: Radiology Impression Echocardiogram 10/03/23 18:20 Interpretation Summary Moderate concentric left ventricular hypertrophy. The left ventricular ejection fraction is 60 %. Diastolic function is indeterminate. Mild aortic stenosis. Mild (1+) mitral valve insufficiency. Ordering Physician: Rayne Hdez Referring Physician: OTStaci Performed By: Soumya Madera RDCS Venous Doppler Study 10/04/23 11:04 Interpretation Summary Deep veins of the bilateral lower extremities are patent and compressible segmentally. There is no evidence of bilateral lower extremity deep vein thrombosis. The bilateral great saphenous veins appear patent and compressible segmentally. Ordering Physician: Bc Parker Performed By: Tiana Barragan RVT Follow-up EKG: Attestation: I personally reviewed and interpreted this EKG as follows: Prior EKG tracings: available for review Interpretation: Atrial fibrillation with rapid ventricular sponsor in the [address] T wave changes suggestive of similar nonspecific ST-T wave changes on EKG 10/03/2023
[2023-10-05 07:56] LABS: Allen Test Positive; Base Excess 2 mmol/L (-2 to +2); Bicarbonate 28.4 mmol/L (22-26); Blood Gas Specimen Type ART; Mode Not entered; O2 Delivery Device BiPAP; PEEP 6; PO2 65 mmHG (75-100); RR 14; SITE R Radial; SO2 89 % (95-99); Total Carbon Dioxide 30 mmol/L; pH 7.29 (7.35-7.45)
[2023-10-05 08:44] LABS: Bedside Glucose 263 mg/dL (74-106)
[2023-10-05] MEDS: Enoxaparin 30 MG/0.3 ML Syringe SC (09:47)
[2023-10-05] MEDS: Pantoprazole Sodium 40 MG in 0.9% Normal Saline (100mL MB+) 100 ML 330 MG IV ×2 (09:49→20:20)
[2023-10-05] MEDS: Vancomycin IV 1,000 MG/200 ML BAG 200 MG IV (10:35)
--- NOTE | 2023-10-05 10:48 | CON.PCM.ID_ITS ---
Assessment & Plan Assessment/Plan (1) Staphylococcus aureus bacteremia: PLAN: Staph aureus bacteremia - Had spine surgery 09/15/23 at [place] with Dr. Mendosa for decompression laminectomy, PSF L3-S2, L3-L5 TLIF. Minimal drainage from incision, diane still in place, but having some increased back pain. Will check repeat bcx. TTE showed no veg. L sided effusion seen on CT. Will order MRI noncontrast of T and L spine. May need transfer to [place] depending on MRI results. Wbc and lactate improved. CKD at baseline. UAg neg. Will stop azithro. Cont vanc/zosyn for now. Will follow, thank you (2) Sepsis: HPI Consult Data Date of Consult: 10/05/23 HPI Narrative Reason for Consultation: bacteremia HPI Narrative: WENDI ADDISON, is a 63 F who presented 10/03/23 with 2 days fatigue, fever, generalized weakness, increased BLE swelling. Had spine surgery 09/15/23 at [place] with Dr. Mendosa for decompression laminectomy, PSF L3-S2, L3-L5 TLIF. No drainage from incision, diane still in place, but having some increased back pain. Admitted to icu, started on vanc/zosyn after azithro/ceftriaxone. Feeling a little better this AM. Some dry cough. Full ROS performed and neg except as noted above. [facility] Medical History Anxiety and depression Arthritis Breast lump Cancer Chronic pain Colon cancer COPD (chronic obstructive pulmonary disease) Depression High cholesterol HTN (hypertension) Neuropathy Recurrent UTI Rheumatic fever Rheumatoid arthritis Seasonal allergies Sleep apnea Smoker Smoker Type 2 diabetes mellitus Ulcer of right lower extremity with fat layer exposed Uterine cancer Venous insufficiency of both lower extremities Vision problem Vitamin deficiency Home Medications ergocalciferol (vitamin D2) 1,250 mcg (50,000 unit) capsule 50,000 unit PO MARTELL MARTELL PPLEMENT 02/28/14 [History Last Taken 09/26/23] duloxetine 60 mg capsule,delayed release 60 mg PO DAILY NEUROPATHY 02/17/18 [History Last Taken 01/27/22 08:00] insulin glargine 100 unit/mL subcutaneous solution (Lantus U-100 Insulin) 19 unit subcut QHS dm 03/01/18 [History Last Taken 10/02/23] bupropion HCl 150 mg tablet,12 hr sustained-release 150 mg PO BID depression 08/16/22 [History Last Taken 10/02/23] gabapentin 300 mg capsule 300 mg PO DAILY neuropathy 08/16/22 [History Last Taken 10/02/23] metoprolol succinate 25 mg tablet,extended release 24 hr 25 mg PO DAILY bp 08/16/22 [History Last Taken 10/02/23] pramipexole 0.5 mg tablet 0.5 mg PO QHS Check with primary doctor 08/16/22 [History Last Taken 10/02/23] albuterol sulfate 90 mcg/actuation aerosol inhaler (ProAir HFA) 2 inh inhalation Q4H PRN shortness of breath or wheezing 04/05/23 [History Last Taken 10/02/23] tamsulosin 0.4 mg capsule (Flomax) 0.4 mg PO DAILY 04/05/23 [History Last Taken 10/02/23] atorvastatin 40 mg tablet 40 mg PO DAILY 10/03/23 [History Last Taken 10/02/23] cyanocobalamin (vitamin B-12) 2,500 mcg sublingual lozenge 2,500 mcg sublingual DAILY 10/03/23 [History Last Taken 10/02/23] etanercept 50 mg/mL (1 mL) subcutaneous pen injector (Enbrel SureClick) 50 mg subcut QWEEK 10/03/23 [History Last Taken Unknown] ferrous sulfate 325 mg (65 mg iron) tablet (FeroSul) 325 mg PO .COMPLEX 10/03/23 [History Last Taken Unknown] furosemide 40 mg tablet 40 mg PO Q12H 10/03/23 [History Last Taken 10/02/23] ipratropium 0.5 mg-albuterol 3 mg (2.5 mg base)/3 mL nebulization soln 3 ml continuous nebulization Q6H PRN shortness of breath 10/03/23 [History Last Taken 10/02/23] nicotine 14 mg/24 hr daily transdermal patch 1 patch topical Q24H 10/03/23 [History Last Taken 10/02/23] semaglutide 0.25 mg or 0.5 mg (2 mg/3 mL) subcutaneous pen injector (Ozempic) 0.25 mg subcut QWEEK 02/04/24 [History Last Taken Unknown] Allergy/AdvReac Type Severity Reaction Status Date / Time clindamycin Allergy Swelling Verified 10/03/23 13:47 metformin AdvReac Nausea Verified 10/03/23 13:47 Family History Father Arthritis Cancer Diabetes Heart disease Hypertension Mother Hypertension Sister Arthritis Lupus Daughter Kidney stones Family History unable to obtain Surgical History Bowel obstruction History of hysterectomy for cancer tumer removed from colon Social History household members: family Smoking Status: Current every day smoker tobacco type: cigarettes alcohol intake: never substance use type: does not use Physical Exam Const alert, oriented x3 and no apparent distress General Appearance: cooperative HEENT normocephalic and head/scalp atraumatic Eyes PERRL and EOMs intact bilaterally Neck supple and No nodes Resp normal air movement Auscultation: diminished lung sounds Cardio regular rate and regular rhythm Heart Sounds: murmur GI soft to palpation, non-tender and non-distended Extremity Extremity Narrative: No focal joint pain/swelling. General Extremity: edema Skin Skin Narrative: mild redness BLE. Spine incision no inflammation, minimal drainage, diane in place. No splinter hemorrhages on hands or feet. Neuro CN's II-XII intact bilaterally Lab / Micro Data Attestation: I reviewed the patient's lab results. 10/05/23 02:56 10/05/23 02:56 Labs: Laboratory Results - last 24 hr 10/03/23 15:08: Crossmatch See Detail 10/03/23 15:08: Crossmatch See Detail 10/04/23 11:42: POC Glucose 213 H 10/04/23 16:28: POC Glucose 291 H 10/04/23 21:14: POC Glucose 231 H 10/05/23 02:53: POC Glucose 258 H 10/05/23 02:56: WBC 11.3 H, RBC 2.64 L, Hgb 7.3 L, Hct 24.2 L, MCV 91.7, MCH 27.7, MCHC 30.2 L, RDW Std Deviation 52.7 H, RDW Coeff of Mat 16.0 H, Plt Count 202, MPV 8.8, Immature Gran % (Auto) 2.000 H, Neut % (Auto) 89.7 H, Lymph % (Auto) 2.9 L, [place] % (Auto) 5.0, Eos % (Auto) 0.1, Baso % (Auto) 0.3, Absolute Neuts (auto) 10.1 H, Absolute Lymphs (auto) 0.33 L, Nucleated RBC % 0, Sodium 136, Potassium 3.9, Chloride 102, Carbon Dioxide 29.0, Anion Gap 5, BUN 60 H, Creatinine 2.51 H, Estim Creat Clear Calc 25.61, Est GFR (MDRD) Af Amer 25 L, Est GFR (MDRD) Non-Af 21 L, BUN/Creatinine Ratio 23.9 H, Glucose 266 H, Calcium 8.4 L, Phosphorus 4.3, Magnesium 1.6 10/05/23 08:26: POC Glucose 263 H Micro: Microbiology 10/03/23 14:05 Blood Culture (Wb) #2 - Anticubital Right Blood Culture - Preliminary Staphylococcus aureus 10/03/23 14:05 Blood Culture (Wb) - Anticubital Left Blood Culture - Preliminary Staphylococcus aureus 10/04/23 09:00 Urine Catheter - G[place]ney Legionella Antigen - Final 10/04/23 09:00 Urine Catheter - G[place] Streptococcus pneumoniae Antigen (M - Final ABG Data ABG results: ABG 10/05/23 07:51 Specimen Type ART Sample Site R Radial pH 7.29 L Bicarbonate Actual 28.4 H Total CO2 30 Base Excess 2 O2 Saturation 89 L O2 % 45.0 ABG pCO2 59.0 H ABG pO2 65 L Chapo Test Positive Respiration Rate 14 O2 Delivery Device BiPAP Vent Mode Not entered POC PEEP 6 Rhythm Strip Rhythm Strip: A-fib Rate: 145 Imaging Radiology Impression Echocardiogram 10/03/23 18:20 Interpretation Summary Moderate concentric left ventricular hypertrophy. The left ventricular ejection fraction is 60 %. Diastolic function is indeterminate. Mild aortic stenosis. Mild (1+) mitral valve insufficiency. Ordering Physician: Rayne Hdez Referring Physician: OTD Performed By: Soumya Madera RDCS Venous Doppler Study 10/04/23 11:04 Interpretation Summary Deep veins of the bilateral lower extremities are patent and compressible segmentally. There is no evidence of bilateral lower extremity deep vein thrombosis. The bilateral great saphenous veins appear patent and compressible segmentally. Ordering Physician: Bc Parker Performed By: Tiana Barragan RVT
--- NOTE | 2023-10-05 10:56 | MRI_ITS ---
STUDY: MRI THORACIC SPINE WITHOUT CONTRAST REASON FOR EXAM: Female, 63 years old. osteomyelitis -- recent surgery, new bacteremia. Non contrast TECHNIQUE: Standardized fat and water weighted pulse sequences were obtained in the sagittal and axial planes. COMPARISON: None. FINDINGS: Normal kyphosis of the thoracic spine. There is no substantial scoliosis. Bilateral pulmonary airspace disease. T1-2, T2-3, T3-4, T4-5, T5-6, T6-7, T7-8, T8-9, T9-10, T10-11, T11-12: Normal endplates. Normal disc hydration, heights and morphology of the corresponding intervertebral discs. Normal central canal and intervertebral neural foramina at the corresponding levels.Intraosseous hemangiomas noted at T6, T8 and T12. Right paracentral disc marginal osteophyte at T7. Normal visualized thoracic cord. Normal conus medullaris that terminates at lumbar level. The soft tissue structures are unremarkable. Posterior subcutaneous fluid collection partially imaged at the edge of the [id number]. MRI/Spine Thoracic (Routine) IMPRESSION: Posterior subcutaneous lumbar fluid collection. Please see lumbar spine MRI report. Extensive bilateral pulmonary consolidations. No evidence of discitis or osteomyelitis. Electronically Signed: Leandro Mcdonald MD at 19:12 [facility] ,
--- NOTE | 2023-10-05 10:56 | MRI_ITS ---
STUDY: MRI LUMBAR SPINE WITHOUT CONTRAST REASON FOR EXAM: Female, 63 years old. osteomyelitis -- recent surgery, new bacteremia. Non contrast, sx 2 wks ago, best possible TECHNIQUE: Standardized fat and water weighted pulse sequences were obtained in the sagittal and axial planes. COMPARISON: None FINDINGS: Bilateral posterior pedicular screws L2 through the sacrum. Magnetic susceptibility artifact causes local image degradation. Hyperintense lesions on T1 and T2 sequences within the T10, T12 and L1 vertebral bodies consistent with intraosseous hemangiomas. Normal lumbar lordosis. There is no substantial scoliosis. Normal conus medullaris that terminates at the lumbar level. Central canal and neural foramina are not well visualized throughout the lumbar spine. Normal visualized paraspinous soft tissue structures. Posterior subcutaneous fluid collection along the entire lumbar region measuring up to 4 x 2.3 cm in AP and transverse dimensions. MRI/Spine Lumbar (Routine) IMPRESSION: Extensive postsurgical changes L2 through the sacrum. Limited sensitivity and specificity due to extensive magnetic susceptibility artifact. Osteomyelitis is therefore difficult to exclude. Extensive Posterior paraspinal and subcutaneous fluid collections noted. Differential considerations include seroma, hematoma and/or abscess. Electronically Signed: Leandro Mcdonald MD at 18:39 EST ,
[2023-10-05 11:27] LABS: Bedside Glucose 306 mg/dL (74-106)
[2023-10-05 11:30] LABS: Allen Test Positive; Base Excess 2 mmol/L (-2 to +2); Bicarbonate 28.5 mmol/L (22-26); Blood Gas Specimen Type ART; Mode Not entered; O2 Delivery Device BiPAP; PEEP 6; PO2 72 mmHG (75-100); RR 12; SITE R Radial; SO2 92 % (95-99); Total Carbon Dioxide 30 mmol/L; pCO2 60.3 mmHg (35-45); pH 7.28 (7.35-7.45)
[2023-10-05] MEDS: Midazolam 2 MG/2 ML Syringe 4 MG IV (11:50)
[2023-10-05] MEDS: Etomidate 20 MG/10 ML Vial IV (11:52)
[2023-10-05] MEDS: fentaNYL drip 100 ML 5 MCG CONT INF (11:56)
[2023-10-05] MEDS: Succinylcholine Chloride 200 MG/10 ML SYRINGE 100 MG IV (11:56)
--- NOTE | 2023-10-05 12:00 | RAD_ITS ---
STUDY: X-RAY CHEST REASON FOR EXAM: Female, 63 years old. ETT TECHNIQUE: Single AP portable view of the chest. COMPARISON: Comparison is made with prior study of October 03, 2023. FINDINGS: An endotracheal tube is seen. The tip is at 4.3 cm proximal to the jen. A nasogastric tube is seen with the tip below the left hemidiaphragm. EKG electrodes are seen. There now is evidence of bilateral airspace disease worse in the right upper lobe and left lower lobes with the small left pleural effusion. This may represent pulmonary edema. Infectious process is less likely. Normal size heart. Normal mediastinum and allison. Normal visualized pulmonary arteries. Normal visualized aortic arch and descending thoracic aorta. Normal visualized thoracic spine. Normal visualized ribs, clavicles, and shoulders. There is no demonstrated abnormality of the visualized soft tissue structures of the upper abdomen. RAD/CXR for Line Placement IMPRESSION: Endotracheal tube is at 4.3 sinus proximal to the jen. Bilateral airspace disease as described. Electronically Signed: Kayode Phillips MD at 12:47 EST ,
--- NOTE | 2023-10-05 12:08 | PCM.CONS.R ---
Assessment & Plan Assessment/Plan (1) Acute kidney injury superimposed on chronic kidney disease: PLAN: Baseline creatinine was around 1.5. Had an episode of ATN requiring dialysis last year. Patient baseline creatinine was around 1.5-2.0. Came in with altered mental status. Blood culture positive for MRSA. Recent back surgery. ID consult noted, MRI spine ordered. Urine output was okay until yesterday, much lower today. Urine looks fairly concentrated, essentially brown. Differential diagnosis includes ATN from ongoing sepsis versus postinfectious glomerulonephritis in the setting of MRSA bacteremia. I will check a C3 level. She has already received IV fluids, currently on BiPAP. Tenuous respiratory status. Hold off on fluids Chest x-ray 10/03/2023 without significant pulmonary edema Echocardiogram noted, cardiology following for management of atrial fibrillation No acute indications for renal replacement therapy HPI Consult Data Date of Consult: 10/05/23 HPI Narrative Reason for Consultation: Acute renal failure HPI Narrative: WENDI ADDISON, is a 63 F who presents to the hospital with low back pain, altered mental status. Nephrology on consultation. Acute renal failure. She is known to me from before. About a year ago she had MARIANA presumably due to ATN. Required dialysis for few weeks, eventually came off dialysis around November 2022. Baseline creatinine was around 1.5, last known creatinine was around 2. She apparently had a back surgery about 3 weeks ago at [facility]. Presented with altered mental status. Currently on BiPAP, fairly confused. Only opens eyes to name but is not conversational. Creatinine has been increasing, up to 2.5 today. She has a Barcenas catheter indwelling, urine looks essentially brown-colored. Urine output was okay yesterday, much lower today. Blood cultures positive for MRSA. ID note reviewed. [facility] Medical History Anxiety and depression Arthritis Breast lump Cancer Chronic pain Colon cancer COPD (chronic obstructive pulmonary disease) Depression High cholesterol HTN (hypertension) Neuropathy Recurrent UTI Rheumatic fever Rheumatoid arthritis Seasonal allergies Sleep apnea Smoker Smoker Type 2 diabetes mellitus Ulcer of right lower extremity with fat layer exposed Uterine cancer Venous insufficiency of both lower extremities Vision problem Vitamin deficiency Home Medications ergocalciferol (vitamin D2) 1,250 mcg (50,000 unit) capsule 50,000 unit PO MARTELL SUPPLEMENT 07/02/14 [History Last Taken 09/26/23] duloxetine 60 mg capsule,delayed release 60 mg PO DAILY NEUROPATHY 02/17/18 [History Last Taken 01/27/22 08:00] insulin glargine 100 unit/mL subcutaneous solution (Lantus U-100 Insulin) 19 unit subcut QHS dm 03/01/18 [History Last Taken 10/02/23] bupropion HCl 150 mg tablet,12 hr sustained-release 150 mg PO BID depression 08/16/22 [History Last Taken 10/02/23] gabapentin 300 mg capsule 300 mg PO DAILY neuropathy 08/16/22 [History Last Taken 10/02/23] metoprolol succinate 25 mg tablet,extended release 24 hr 25 mg PO DAILY bp 08/16/22 [History Last Taken 10/02/23] pramipexole 0.5 mg tablet 0.5 mg PO QHS Check with primary doctor 08/16/22 [History Last Taken 10/02/23] albuterol sulfate 90 mcg/actuation aerosol inhaler (ProAir HFA) 2 inh inhalation Q4H PRN shortness of breath or wheezing 04/05/23 [History Last Taken 10/02/23] tamsulosin 0.4 mg capsule (Flomax) 0.4 mg PO DAILY 04/05/23 [History Last Taken 10/02/23] atorvastatin 40 mg tablet 40 mg PO DAILY 10/03/23 [History Last Taken 10/02/23] cyanocobalamin (vitamin B-12) 2,500 mcg sublingual lozenge 2,500 mcg sublingual DAILY 10/03/23 [History Last Taken 10/02/23] etanercept 50 mg/mL (1 mL) subcutaneous pen injector (Enbrel SureClick) 50 mg subcut QWEEK 10/03/23 [History Last Taken Unknown] ferrous sulfate 325 mg (65 mg iron) tablet (FeroSul) 325 mg PO .COMPLEX 10/03/23 [History Last Taken Unknown] furosemide 40 mg tablet 40 mg PO Q12H 10/03/23 [History Last Taken 10/02/23] ipratropium 0.5 mg-albuterol 3 mg (2.5 mg base)/3 mL nebulization soln 3 ml continuous nebulization Q6H PRN shortness of breath 10/03/23 [History Last Taken 10/02/23] nicotine 14 mg/24 hr daily transdermal patch 1 patch topical Q24H 10/03/23 [History Last Taken 10/02/23] semaglutide 0.25 mg or 0.5 mg (2 mg/3 mL) subcutaneous pen injector (Ozempic) 0.25 mg subcut QWEEK 10/03/23 [History Last Taken Unknown] Allergy/AdvReac Type Severity Reaction Status Date / Time clindamycin Allergy Swelling Verified 10/03/23 13:47 metformin AdvReac Nausea Verified 10/03/23 13:47 Family History Father Arthritis Cancer Diabetes Heart disease Hypertension Mother Hypertension Sister Arthritis Lupus Daughter Kidney stones Family History unable to obtain Surgical History Bowel obstruction History of hysterectomy for cancer tumer removed from colon Social History household members: family Smoking Status: Current every day smoker tobacco type: cigarettes alcohol intake: never substance use type: does not use ROS ROS Narrative Could not be done due to mental status Physical Exam Narrative Somewhat confused no obvious distress no pallor no icterus no JVD s1s2 no murmurs lungs clear abdomen soft no organomegaly no edema no cyanosis barcenas + Lab / Micro Data 10/05/23 02:56 10/05/23 02:56 Labs: Laboratory Results - last 24 hr 10/03/23 15:08: Crossmatch See Detail 10/03/23 15:08: Crossmatch See Detail 10/04/23 16:28: POC Glucose 291 H 10/04/23 21:14: POC Glucose 231 H 10/05/23 02:53: POC Glucose 258 H 10/05/23 02:56: WBC 11.3 H, RBC 2.64 L, Hgb 7.3 L, Hct 24.2 L, MCV 91.7, MCH 27.7, MCHC 30.2 L, RDW Std Deviation 52.7 H, RDW Coeff of Mat 16.0 H, Plt Count 202, MPV 8.8, Immature Gran % (Auto) 2.000 H, Neut % (Auto) 89.7 H, Lymph % (Auto) 2.9 L, [place] % (Auto) 5.0, Eos % (Auto) 0.1, Baso % (Auto) 0.3, Absolute Neuts (auto) 10.1 H, Absolute Lymphs (auto) 0.33 L, Nucleated RBC % 0, Sodium 136, Potassium 3.9, Chloride 102, Carbon Dioxide 29.0, Anion Gap 5, BUN 60 H, Creatinine 2.51 H, Estim Creat Clear Calc 25.61, Est GFR (MDRD) Af Amer 25 L, Est GFR (MDRD) Non-Af 21 L, BUN/Creatinine Ratio 23.9 H, Glucose 266 H, Calcium 8.4 L, Phosphorus 4.3, Magnesium 1.6 10/05/23 08:26: POC Glucose 263 H 10/05/23 11:08: POC Glucose 306 H Micro: Microbiology 10/03/23 14:05 Blood Culture (Wb) #2 - Anticubital Right Blood Culture - Preliminary Staphylococcus aureus 10/03/23 14:05 Blood Culture (Wb) - Anticubital Left Blood Culture - Preliminary Staphylococcus aureus 10/04/23 09:00 Urine Catheter - Barcenas Legionella Antigen - Final 10/04/23 09:00 Urine Catheter - Barcenas Streptococcus pneumoniae Antigen (M - Final ABG Data ABG results: ABG 10/05/23 10/05/23 07:51 11:26 Specimen Type ART ART Sample Site R Radial R Radial pH 7.29 L 7.28 L Bicarbonate Actual 28.4 H 28.5 H Total CO2 30 30 Base Excess 2 2 O2 Saturation 89 L 92 L O2 % 45.0 45.0 ABG pCO2 59.0 H 60.3 H ABG pO2 65 L 72 L Chapo Test Positive Positive Respiration Rate 14 12 O2 Delivery Device BiPAP BiPAP Vent Mode Not entered Not entered POC PEEP 6 6 Rhythm Strip Rhythm Strip: A-fib Rate: 145 Imaging Radiology Impression Echocardiogram 10/03/23 18:20 Interpretation Summary Moderate concentric left ventricular hypertrophy. The left ventricular ejection fraction is 60 %. Diastolic function is indeterminate. Mild aortic stenosis. Mild (1+) mitral valve insufficiency. Ordering Physician: Rayne Hdez Referring Physician: OTD Performed By: Soumya Madera RDCS Venous Doppler Study 10/04/23 11:04 Interpretation Summary Deep veins of the bilateral lower extremities are patent and compressible segmentally. There is no evidence of bilateral lower extremity deep vein thrombosis. The bilateral great saphenous veins appear patent and compressible segmentally. Ordering Physician: Bc Parker Performed By: Tiana Barragan RVT
--- NOTE | 2023-10-05 12:13 | NURSING ---
1150-4mg versed given 1152-20mg etomidate given 1154- 7.5 ett 23 at the lip 1156- 100mg succ given 1156-fentanyl gtt started
--- NOTE | 2023-10-05 12:15 | PCM.OP.PRO ---
Procedure Report Date of Procedure: 10/05/23 Intubation Indication: Respiratory failure Consent was obtained from: Patient's daughter, Amber The patient was placed in the appropriate sniffing position. Preoxygenated sedation via BiPAP was provided for a minimum of 3 minutes. The patient had continuous cardiac as well as pulse oximetry monitoring during the procedure. Procedure sedation was provided by the administration of 4 mg of Versed and 20 mg of etomidate. Direct laryngoscopy was then performed using a number 3 MAC blade, which revealed a grade 1 view. A 7.5 mm endotracheal tube was visualized advancing between the cords to the level of 24 cm at the lip. The stylette was then removed and discarded. Tube placement was confirmed by fogging in the tube along with equal and bilateral breath sounds. Colorimetric change was visualized on the CO2 meter. The cuff was then inflated and the tube secured using a commercially available device. A good pulse oximetry waveform was seen on the monitor throughout the procedure. A portable chest x-ray has been ordered to confirm appropriate placement. The patient tolerated the procedure well. Procedures Hospitalists Procedures: 43066 Insert Emergency Airway
[2023-10-05] MEDS: dexMEDEtomidine 400 MCG in 0.9% Normal Saline (100mL Bag) 96 ML 12.4000000000000004 MCG CONT INF (12:17)
[2023-10-05] MEDS: Amiodarone 360 MG in Dextrose 5% Viaflo Bag 192.8 ML 16.6999999999999993 MG CONT INF (12:51)
[2023-10-05 14:05] LABS: Base Excess 2 mmol/L (-2 to +2); Bicarbonate 27.9 mmol/L (22-26); Blood Gas Specimen Type ART; Mode AC; O2 Delivery Device Adult Vent; PEEP 5; PO2 81 mmHG (75-100); RR 14; SITE R Radial; SO2 95 % (95-99); Total Carbon Dioxide 30 mmol/L; pCO2 50.4 mmHg (35-45); pH 7.35 (7.35-7.45)
[2023-10-05] MEDS: Dexmedetomidine 1,000 mcg in 0.9% NS 240 mL 17.3999999999999986 MCG CONT INF (14:55)
[2023-10-05 17:53] LABS: Bedside Glucose 253 mg/dL (74-106)
[2023-10-05] MEDS: fentaNYL drip 100 ML 10 MCG CONT INF (18:09)
[2023-10-05] MEDS: Chlorhexidine 15 ML PO (20:21)
[2023-10-05] MEDS: Atorvastatin Calcium 40 MG Tablet PO (20:43)
[2023-10-05] MEDS: Insulin Glargine-YFGN 100 UNIT/ML Pen 19 UNIT SC (20:44)
[2023-10-05 21:00] LABS: Bedside Glucose 260 mg/dL (74-106)
[2023-10-06] VITALS (33 sets, daily range): BP systolic 109–159; BP diastolic 51–90; PULSE 67–106; RESP 14–23; TEMP 35.9–40; O2SAT 87–97; BMI 38.9
[2023-10-06 00:24] LABS: Bedside Glucose 259 mg/dL (74-106)
[2023-10-06] MEDS: Ipratropium/Albuterol Sulfate 3 ML AMPUL.NEB INHALATION ×4 (00:45→19:07)
[2023-10-06] MEDS: Dexmedetomidine 1,000 mcg in 0.9% NS 240 mL 14.9000000000000004 MCG CONT INF ×2 (03:18→20:15)
[2023-10-06 05:07] LABS: Complement C3 121 mg/dL (82-167)
[2023-10-06] MEDS: Insulin Lispro 100 UNIT/ML INSULN.PEN SC ×3 (05:10→17:32)
[2023-10-06] MEDS: Piperacil/Tazobactam 3.375 GM in 0.9% Normal Saline (50mL MB+) 50 ML IV (05:11)
[2023-10-06 05:30] LABS: Absolute Lymphocyte Count 0.79 X10^3/uL (0.83-4.51); Absolute Neutrophil Count 11.8 X10^3/uL (2.0-7.7); Basophil# 0.04 X10^3/uL; Basophil% 0.3 % (0-1); Eosinophil# 0.05 X10^3/uL; Eosinophils% 0.4 % (0-5); Hematocrit 23.4 % (37-47); Hemoglobin 7.4 g/dL (12.0-15.0); Lymphocyte # 0.79 X10^3/ul (0.83-4.51); Lymphocyte % 5.8 % (19-41); Mean Corp Hgb Conc 31.6 g/dL (32-36); Mean Corpuscular Hgb 28.6 pg (27.0-32.0); Mean Corpuscular Volume 90.3 fL (81-99); Mean Platelet Vol. 8.8 fl (6.2-12.0); Monocyte# 0.73 X10^3/uL; Monocyte% 5.4 % (0-10); NRBC Flagged by Analyzer 0 % (0-5); Neutrophil # 11.82 X10^3/uL (2.7-7.7); Neutrophil % 87.4 % (47-70); Platelet Count 231 K/mm3 (150-450); RBC Distribution Width CV 16.1 % (11.6-14.6); RBC Distribution Width SD 53.2 fl (35.1-43.9); Red Blood Count 2.59 M/mm3 (4.2-5.4); White Blood Count 13.5 K/mm3 (4.4-11.0)
[2023-10-06 05:43] LABS: Anion Gap 4 (5-15); BUN 67 mg/dL (7-18); BUN/Creat Ratio 19.6 RATIO (10-20); Calcium,Total 8.2 mg/dL (8.5-10.1); Chloride 101 mmol/L (98-107); Creatinine, Serum 3.41 mg/dL (0.55-1.02); EST Glomerular Filtration Rate 14 mL/min (>60); Est Glom Filt Rate - Afr Amer 18 mL/min (>60); Estimated Creatinine Clearance 18.96 ml/min; Glucose 249 mg/dL (74-106); Sodium Level 134 mmol/L (136-145)
[2023-10-06 06:40] LABS: Bedside Glucose 251 mg/dL (74-106)
--- NOTE | 2023-10-06 06:47 | PCM.PN.INT ---
Assessment & Plan Assessment/Plan (1) Hypoxemia: PLAN: Plan RECOMMENDATIONS: 1. Continue assist-control mode mechanical ventilation. Wean FiO2 and PEEP for saturations greater than 90%. 2. Continue antibiotics per ID recommendations. 3. Continue to monitor H&H. Transfuse if hemoglobin drops below 7 g/dL. 4. Spine surgery evaluation with potential need to be transferred to [place], given recent spine surgery. 5. Continue appropriate DVT and GI prophylaxis. 6. Continue bronchodilator therapy. 7. Okay to initiate tube feeding today. IMPRESSIONS: 1. Acute on chronic hypoxemic respiratory failure Most likely multifactorial in etiology. I do suspect that the patient's presenting anemia is likely contributing to her hypoxemia and shortness of breath, along with underlying COPD which is likely in a state of exacerbation due to bilateral pneumonia. The patient was initiated on appropriate antimicrobial therapy, but ultimately required BiPAP support. The patient began to retain CO2, which was refractory to noninvasive positive pressure ventilatory support. Therefore, she was intubated on October 05. Plan to continue current supportive measures including assist-control mode of mechanical ventilation. FiO2 and PEEP will be weaned as tolerated. 2. Sepsis Secondary to Staphylococcus bacteremia. The patient was intubated on October 05 with copious, purulent secretions noted. Therefore, underlying pneumonia as a potential source. Alternatively, MRI of the patient's lumbar spine revealed potential hematoma or abscess in the area of recent spine surgery on October 16 at [place]. The patient remains on appropriate broad-spectrum antimicrobials per infectious diseases recommendations. Ultimately, the patient would benefit from spine surgery evaluation, with the possible need to be transferred back to [place] for evaluation. 3. Anemia Continue to monitor H&H. Transfuse if hemoglobin drops below 7 g/dL. Continue PPI therapy. Gastroenterology is following. 4. History of obstructive sleep apnea The patient reports noncompliance with nocturnal PAP therapy. Recommend resuming BiPAP therapy on a nightly basis, once the patient is able to be extubated. 5. Recent lumbar spine surgery/history of rheumatoid arthritis on etanercept/chronic kidney disease/diabetes mellitus/tobacco dependency Complicates care, management, recovery and prognosis. Continue supportive measures as noted above. Okay to initiate tube feeding today. TIME: 38 minutes of critical care time, independent of procedures, was spent addressing the patient's acute on chronic hypoxemic respiratory failure, sepsis, atrial fibrillation with RVR, anemia, review of all data and collaboration with care team. Subjective Subjective The patient was seen and examined at the bedside this morning. Events from the last 24 hours have been reviewed. The patient is currently afebrile, hemodynamically stable and maintaining appropriate oxygen saturations on assist-control mode mechanical ventilation with an FiO2 requirement of 45% and PEEP of 5. The patient was intubated yesterday afternoon on account of worsening respiratory status and hypercapnia which was refractory to noninvasive positive pressure ventilatory support. Lumbar spine MRI completed yesterday demonstrated a paraspinal and subcutaneous fluid collection. The patient is currently documented to be overall net +1.1 L for the hospitalization. White count is elevated at 13,000 with a hemoglobin of 7.4 g/dL. Creatinine has increased to 3.41. Objective Data Objective Data The patient's most recent lab work, culture data and imaging studies have all been personally reviewed. Surface echocardiogram dated October 04 demonstrated moderate concentric LVH with an ejection fraction of 60%. Stool for occult blood was positive on October 03. Blood cultures dated September for her positive for MRSA. Vital Signs: Vital Signs Temp Pulse Resp BP Pulse Ox O2 Del Method O2 Flow Rate 98.6 F 93 15 136/57 H 92 Mechanical Ventilator 8 10/06/23 05:00 10/06/23 06:00 10/06/23 06:00 10/06/23 06:00 10/06/23 06:00 10/06/23 06:00 10/04/23 17:00 FiO2 45 10/06/23 06:00 Oxygen Flow Rate (L/min) 8 Oxygen Delivery Method Mechanical Ventilator Weight: 219 lb 9.286 oz Body Mass Index (BMI) 38.9 Intake & Output: Intake and Output for Last 24 Hours 10/04/23 10/05/23 10/06/23 23:59 23:59 23:59 Intake Total 1156 / 1156 1241.98 / 1264.38 390.62 / 390.62 Output Total 910 / 910 315 / 315 175 / 175 Balance 246 / 246 926.98 / 949.38 215.62 / 215.62 Lab / Micro Data Attestation: I reviewed the patient's lab results. 10/06/23 05:20 10/06/23 05:20 Labs: Laboratory Results - last 24 hr 10/05/23 08:26: POC Glucose 263 H 10/05/23 11:08: POC Glucose 306 H 10/05/23 12:19: Complement C3 121 10/05/23 17:35: POC Glucose 253 H 10/05/23 20:40: POC Glucose 260 H 10/05/23 23:21: POC Glucose 259 H 10/06/23 05:06: POC Glucose 251 H 10/06/23 05:20: WBC 13.5 H, RBC 2.59 L, Hgb 7.4 L, Hct 23.4 L, MCV 90.3, MCH 28.6, MCHC 31.6 L, RDW Std Deviation 53.2 H, RDW Coeff of Mat 16.1 H, Plt Count 231, MPV 8.8, Immature Gran % (Auto) 0.700, Neut % (Auto) 87.4 H, Lymph % (Auto) 5.8 L, [place] % (Auto) 5.4, Eos % (Auto) 0.4, Baso % (Auto) 0.3, Absolute Neuts (auto) 11.8 H, Absolute Lymphs (auto) 0.79 L, Nucleated RBC % 0, Sodium 134 L, Potassium 4.0, Chloride 101, Carbon Dioxide 29.0, Anion Gap 4 L, BUN 67 H, Creatinine 3.41 H, Estim Creat Clear Calc 18.96, Est GFR (MDRD) Af Amer 18 L, Est GFR (MDRD) Non-Af 14 L, BUN/Creatinine Ratio 19.6, Glucose 249 H, Calcium 8.2 L Micro: Microbiology 10/05/23 11:50 Sputum, Induced/Lukens Gram Stain - Final 10/03/23 14:05 Blood Culture (Wb) #2 - Anticubital Right Blood Culture - Preliminary Staphylococcus aureus 10/03/23 14:05 Blood Culture (Wb) - Anticubital Left Blood Culture - Preliminary Staphylococcus aureus 10/04/23 09:00 Urine Catheter - Gaffney Legionella Antigen - Final 10/04/23 09:00 Urine Catheter - Gaffney Streptococcus pneumoniae Antigen (M - Final 10/03/23 15:04 Stool Stool Occult Blood (SALLY) - Final Occult Blood Positive 10/03/23 14:05 Mucosa - Nasopharyngeal SARS-CoV-2, Influenza & RSV (PCR) - Final ABG Data ABG results: ABG 10/05/23 10/05/23 10/05/23 07:51 11:26 14:02 Specimen Type ART ART ART Sample Site R Radial R Radial R Radial pH 7.29 L 7.28 L 7.35 Bicarbonate Actual 28.4 H 28.5 H 27.9 H Total CO2 30 30 30 Base Excess 2 2 2 O2 Saturation 89 L 92 L 95 O2 % 45.0 45.0 50.0 ABG pCO2 59.0 H 60.3 H 50.4 H ABG pO2 65 L 72 L 81 Chapo Test Positive Positive Respiration Rate 14 12 14 O2 Delivery Device BiPAP BiPAP Adult Vent Vent Mode Not entered Not entered AC Tidal Volume 450.0 POC PEEP 6 6 5 Radiography Diagnostic Testing: Radiology Impression Lumbar Spine MRI 10/05/23 10:56 IMPRESSION: Extensive postsurgical changes L2 through the sacrum. Limited sensitivity and specificity due to extensive magnetic susceptibility artifact. Osteomyelitis is therefore difficult to exclude. Extensive Posterior paraspinal and subcutaneous fluid collections noted. Differential considerations include seroma, hematoma and/or abscess. Electronically Signed: Leandro Mcdonald MD at 18:39 EST Reading Location ID and State: [facility] / [place] Tel , Service support , Thoracic Spine MRI 10/05/23 10:56 IMPRESSION: Posterior subcutaneous lumbar fluid collection. Please see lumbar spine MRI report. Extensive bilateral pulmonary consolidations. No evidence of discitis or osteomyelitis. Electronically Signed: Leandro Mcdonald MD at 19:12 EST Reading Location ID and State: [facility] / [place] Tel , Service support , Chest X-Ray 10/05/23 12:00 IMPRESSION: Endotracheal tube is at 4.3 sinus proximal to the jen. Bilateral airspace disease as described. Electronically Signed: Kayode Phillips MD at 12:47 EST , Rhythm Strip Rhythm Strip: A-fib Rate: 145 Physical Exam Const Constitutional Narrative: Intubated, sedated and mechanically ventilated. No ventilator dyssynchrony noted. HEENT normocephalic and head/scalp atraumatic Mouth: endotracheal tube in place and OG tube in place Eyes PERRL, EOMs intact bilaterally and conjunctivae normal Neck supple General: trachea midline Chest inspection of chest normal Resp normal respiratory effort Resp Narrative: Coarse mechanical breath sounds. Cardio S1 normal heart sound and S2 normal heart sound Rate: tachycardic GI normal to inspection, nondistended, normoactive bowel sounds Extremity General Extremity: edema; Negative for clubbing Skin no rashes or lesions noted Neuro Sensorium / Orientation: sedated on vent Charges/Coding Procedures Hospitalists Procedures: 16785 Critical Care 1st Hr
--- NOTE | 2023-10-06 07:10 | PN.HOSP_ITS ---
Reason for Visit Reason for Visit: Diagnoses Sepsis, unspecified organism (10/03/23) Methicillin susceptible Staphylococcus aureus infection as the cause of diseases classified elsewhere (10/03/23) Anemia, unspecified (10/03/23) Paroxysmal atrial fibrillation (10/03/23) Chronic diastolic (congestive) heart failure (10/03/23) Heart failure, unspecified (10/03/23) Acute kidney failure, unspecified (10/03/23) Chronic kidney disease, unspecified (10/03/23) Hypoxemia (10/03/23) Bacteremia (10/03/23) Subjective Subjective Patient was intubated on 10/05/2023 in view of deteriorating respiratory status.Patient blood cultures came back positive for MRSA. Subsequent imaging studies with MRI of the thoracic and lumbar spine extensive postsurgical changes L2 through the sacrum. Limited sensitivity and specificity due to extensive magnetic susceptibility artifact. Osteomyelitis is therefore difficult to exclude. Extensive Posterior paraspinal and subcutaneous fluid collections noted. Differential considerations include seroma, hematoma and/or abscess. Objective Data Objective Data Vital Signs: Vital Signs Temp Pulse Resp BP Pulse Ox O2 Del Method O2 Flow Rate 98.6 F 98 18 143/60 H 92 Mechanical Ventilator 8 10/06/23 05:00 10/06/23 07:00 10/06/23 07:00 10/06/23 07:00 10/06/23 07:00 10/06/23 07:00 10/04/23 17:00 FiO2 45 10/06/23 07:00 Oxygen Flow Rate (L/min) 8 Oxygen Delivery Method Mechanical Ventilator Weight: 99.6 kg Body Mass Index (BMI) 38.9 Intake & Output: Intake and Output for Last 24 Hours 10/04/23 10/05/23 10/06/23 23:59 23:59 23:59 Intake Total 1156 / 1156 1241.98 / 1264.38 390.62 / 390.62 Output Total 910 / 910 315 / 315 175 / 175 Balance 246 / 246 926.98 / 949.38 215.62 / 215.62 Lab / Micro Data 10/06/23 05:20 10/06/23 05:20 Labs: Laboratory Results - last 24 hr 10/05/23 08:26: POC Glucose 263 H 10/05/23 11:08: POC Glucose 306 H 10/05/23 12:19: Complement C3 121 02/06/24 17:35: POC Glucose 253 H 10/05/23 20:40: POC Glucose 260 H 10/05/23 23:21: POC Glucose 259 H 10/06/23 05:06: POC Glucose 251 H 10/06/23 05:20: WBC 13.5 H, RBC 2.59 L, Hgb 7.4 L, Hct 23.4 L, MCV 90.3, MCH 28.6, MCHC 31.6 L, RDW Std Deviation 53.2 H, RDW Coeff of Mat 16.1 H, Plt Count 231, MPV 8.8, Immature Gran % (Auto) 0.700, Neut % (Auto) 87.4 H, Lymph % (Auto) 5.8 L, [place] % (Auto) 5.4, Eos % (Auto) 0.4, Baso % (Auto) 0.3, Absolute Neuts (auto) 11.8 H, Absolute Lymphs (auto) 0.79 L, Nucleated RBC % 0, Sodium 134 L, Potassium 4.0, Chloride 101, Carbon Dioxide 29.0, Anion Gap 4 L, BUN 67 H, Creatinine 3.41 H, Estim Creat Clear Calc 18.96, Est GFR (MDRD) Af Amer 18 L, Est GFR (MDRD) Non-Af 14 L, BUN/Creatinine Ratio 19.6, Glucose 249 H, Calcium 8.2 L Micro: Microbiology 10/05/23 11:50 Sputum, Induced/Lukens Gram Stain - Final 10/03/23 14:05 Blood Culture (Wb) #2 - Anticubital Right Blood Culture - Pre liminary Staphylococcus aureus 10/03/23 14:05 Blood Culture (Wb) - Anticubital Left Blood Culture - Preliminary Staphylococcus aureus 10/04/23 09:00 Urine Catheter - Gaffney Legionella Antigen - Final 10/04/23 09:00 Urine Catheter - Gaffney Streptococcus pneumoniae Antigen (M - Final 10/03/23 15:04 Stool Stool Occult Blood (SALLY) - Final Occult Blood Positive 10/03/23 14:05 Mucosa - Nasopharyngeal SARS-CoV-2, Influenza & RSV (PCR) - Final ABG Data ABG results: ABG 10/05/23 10/05/23 10/05/23 07:51 11:26 14:02 Specimen Type ART ART ART Sample Site R Radial R Radial R Radial pH 7.29 L 7.28 L 7.35 Bicarbonate Actual 28.4 H 28.5 H 27.9 H Total CO2 30 30 30 Base Excess 2 2 2 O2 Saturation 89 L 92 L 95 O2 % 45.0 45.0 50.0 ABG pCO2 59.0 H 60.3 H 50.4 H ABG pO2 65 L 72 L 81 Chapo Test Positive Positive Respiration Rate 14 12 14 O2 Delivery Device BiPAP BiPAP Adult Vent Vent Mode Not entered Not entered AC Tidal Volume 450.0 POC PEEP 6 6 5 Radiography Diagnostic Testing: Radiology Impression Lumbar Spine MRI 10/05/23 10:56 IMPRESSION: Extensive postsurgical changes L2 through the sacrum. Limited sensitivity and specificity due to extensive magnetic susceptibility artifact. Osteomyelitis is therefore difficult to exclude. Extensive Posterior paraspinal and subcutaneous fluid collections noted. Differential considerations include seroma, hematoma and/or abscess. Electronically Signed: Leandro Mcdonald MD at 18:39 EST Reading Location ID and State: [address] [place] [address] Tel , Service support , Thoracic Spine MRI 10/05/23 10:56 IMPRESSION: Posterior subcutaneous lumbar fluid collection. Please see lumbar spine MRI report. Extensive bilateral pulmonary consolidations. No evidence of discitis or osteomyelitis. Electronically Signed: Leandro Mcdonald MD at 19:12 EST Reading Location ID and State: [facility] / [place] Tel , Service support , Chest X-Ray 10/05/23 12:00 IMPRESSION: Endotracheal tube is at 4.3 sinus proximal to the jen. Bilateral airspace disease as described. Electronically Signed: Kayode Phillips MD at 12:47 EST , Rhythm Strip Rhythm Strip: A-fib Rate: 145 Physical Exam Narrative GENERAL: Sedated on the vent HEENT: Atraumatic; normocephalic EYES; Anicteric, Normal Conjunctiva NECK; supple, normal thyroid, RESPIRATORY: Diminished to auscultation CARDIOVASCULAR: Regular S1 S2, GI: soft, normoactive bowel sounds, : No Renal angle tenderness; EXTREMITIES: edema, no clubbing, MUSCULOSKELETAL: no muscle wasting NEURO: Sedated on the vent SKIN: No Rash Assessment & Plan Assessment/Plan (1) CHF (congestive heart failure): QUALIFIERS: Heart failure chronicity: chronic Heart failure type: diastolic Qualified Code(s): I50.32 - Chronic diastolic (congestive) heart failure PLAN: Plan 63-year-old female with recent lumbar surgery, rheumatoid arthritis on etanercept and prior history of COPD presents with worsening shortness of breath, drowsiness, leukocytosis, elevated BNP and radiology findings of left- sided pleural effusion with suspected infiltrates. 1. Acute hypoxic respiratory failure ?Suspected to be secondary to pneumonia with multidrug-resistant organism given patient immunosuppressive status. Admitted to the intensive care unit placed on noninvasive ventilation with BiPAP with consultation placed pulmonary medicine ? 10/05/2023; patient remains on BiPAP. ?10/06/2023 patient was intubated on 10/05/2023 in view of deteriorating respiratory status. 2. MRSA bacteremia ? 10/06/2019 patient blood cultures came back positive for MRSA. Given patient recent decompression laminectomy on 09/15/2023 at [facility] subsequent imaging studies with MRI of the thoracic and lumbar spine were ordered which demonstrated extensive postsurgical changes L2 through the sacrum. Limited sensitivity and specificity due to extensive magnetic susceptibility artifact. Osteomyelitis is therefore difficult to exclude. Extensive Posterior paraspinal and subcutaneous fluid collections noted. Differential considerations include seroma, hematoma and/or abscess. 2. Pneumonia with suspected multidrug resistance organism ? Patient started on ceftriaxone and azithromycin, adjusted antibiotic therapy with addition of vancomycin ? 10/06/2023; patient antibiotic therapy adjusted currently on Zosyn and vancomycin 3. Elevated D-dimer ? With high suspicion for VTE. Bilateral venous Doppler ordered. CTA could not be ordered given patient impaired kidney function ? 10/05/2023; bilateral venous duplex negative for DVT; patient systemic anticoagulation with heparin discontinued subsequently started on Lovenox dose adjusted for kidney function 4. Acute metabolic encephalopathy ? Secondary to acute hypoxic respiratory failure 5. New onset paroxysmal A-fib with RVR ? 10/05/2023. Patient did not respond to Lopressor and Cardizem had to be started on amiodarone drip ? 10/06/2023 patient amiodarone drip has since been weaned off 6. Chronic kidney disease stage IV ? Patient creatinine has fluctuated in the past and did require transient hemodialysis. Creatinine on admission was 2.19 downto 2.15 7. Anemia - Secondary to chronic disorder/iron deficiency anemia. Patient hemoglobin on admission was 6.9. Did receive transfusion with 1 unit PRBC. Subsequently monitoring H&H and transfuse if patient becomes symptomatic or hemoglobin falls below 7. Patient apparently had rectal exams in the emergency department which was Hemoccult negative ? 10/05/[address] Martin with GI plan is for patient to undergo upper endoscopic evaluation when medically stable 8. Diabetes mellitus type 2 ? With complications including diabetic nephropathy as well as diabetic polyneuropathy. Held patient oral agents placed on long-acting insulin with sliding scale coverage 9. Rheumatoid arthritis ? Patient is on etanercept [place] q. weekly 10. Dyslipidemia -Patient is on statin therapy, continued at home dose 11. Tobacco dependence - Counseled on cessation, offered nicotine patch for tobacco cravings 12. Acute kidney injury ruled out 13. Class II obesity with BMI of 38 ? Weight loss advised 14. Essential hypertension ? Patient blood pressure control remains labile 19. DVT prophylaxis ? Patient on Lovenox Time spent in the patient's overall evaluation,decision-making process, review of diagnostic data, adjustment of management, discussion with other providers, nursing nursing and ancillary staff involved in patient's care documentation, 50 Minutes Charges/Coding Visit Charges Inpatient E&M: [address] [facility] L3
--- NOTE | 2023-10-06 08:14 | PN.CARD_ITS ---
Subjective Subjective The patient remains intubated and sedated. She converted to normal sinus rhythm and amiodarone will be discontinued. It appears the patient's atrial fibrillation was short-lived. Objective Data Vital Signs: Vital Signs Temp Pulse Resp BP Pulse Ox O2 Del Method O2 Flow Rate 98.6 F 98 18 143/60 H 92 Mechanical Ventilator 8 10/06/23 05:00 10/06/23 07:00 10/06/23 07:00 10/06/23 07:00 10/06/23 07:00 10/06/23 07:00 10/04/23 17:00 FiO2 45 10/06/23 07:00 Oxygen Flow Rate (L/min) 8 Oxygen Delivery Method Mechanical Ventilator Weight: 219 lb 9.286 oz Body Mass Index (BMI) 38.9 Intake & Output: Intake and Output for Last 24 Hours 10/04/23 10/05/23 10/06/23 23:59 23:59 23:59 Intake Total 1156 / 1156 1241.98 / 1264.38 390.62 / 390.62 Output Total 910 / 910 315 / 315 175 / 175 Balance 246 / 246 926.98 / 949.38 215.62 / 215.62 Lab / Micro Data Attestation: I reviewed the patient's lab results. 10/06/23 05:20 10/06/23 05:20 Labs: Laboratory Results - last 24 hr 10/05/23 08:26: POC Glucose 263 H 10/05/23 11:08: POC Glucose 306 H 10/05/23 12:19: Complement C3 121 10/05/23 17:35: POC Glucose 253 H 10/05/23 20:40: POC Glucose 260 H 10/05/23 23:21: POC Glucose 259 H 10/06/23 05:06: POC Glucose 251 H 10/06/23 05:20: WBC 13.5 H, RBC 2.59 L, Hgb 7.4 L, Hct 23.4 L, MCV 90.3, MCH 28.6, MCHC 31.6 L, RDW Std Deviation 53.2 H, RDW Coeff of Mat 16.1 H, Plt Count 231, MPV 8.8, Immature Gran % (Auto) 0.700, Neut % (Auto) 87.4 H, Lymph % (Auto) 5.8 L, [place] % (Auto) 5.4, Eos % (Auto) 0.4, Baso % (Auto) 0.3, Absolute Neuts (auto) 11.8 H, Absolute Lymphs (auto) 0.79 L, Nucleated RBC % 0, Sodium 134 L, Potassium 4.0, Chloride 101, Carbon Dioxide 29.0, Anion Gap 4 L, BUN 67 H, Creatinine 3.41 H, Estim Creat Clear Calc 18.96, Est GFR (MDRD) Af Amer 18 L, Est GFR (MDRD) Non-Af 14 L, BUN/Creatinine Ratio 19.6, Glucose 249 H, Calcium 8.2 L Micro: Microbiology 10/03/23 14:05 Blood Culture (Wb) #2 - Anticubital Right Blood Culture - Final Staphylococcus aureus 10/03/23 14:05 Blood Culture (Wb) - Anticubital Left Blood Culture - Final Meth. resistant Staph. aureus 10/05/23 11:50 Sputum, Induced/Lukens Gram Stain - Final ABG Data ABG results: ABG 10/05/23 10/05/23 11:26 14:02 Specimen Type ART ART Sample Site R Radial R Radial pH 7.28 L 7.35 Bicarbonate Actual 28.5 H 27.9 H Total CO2 30 30 Base Excess 2 2 O2 Saturation 92 L 95 O2 % 45.0 50.0 ABG pCO2 60.3 H 50.4 H ABG pO2 72 L 81 Chapo Test Positive Respiration Rate 12 14 O2 Delivery Device BiPAP Adult Vent Vent Mode Not entered AC Tidal Volume 450.0 POC PEEP 6 5 Rhythm Strip Rhythm Strip: Sinus Rhythm Rate: 104 Cardiology Labs/Tests 10/05/23 11:26: pH 7.28 L, Bicarbonate Actual 28.5 H, Base Excess 2, O2 Sat uration 92 L, ABG pCO2 60.3 H, ABG pO2 72 L, Chapo Test Positive 10/05/23 14:02: pH 7.35, Bicarbonate Actual 27.9 H, Base Excess 2, O2 Saturation 95, ABG pCO2 50.4 H, ABG pO2 81 10/06/23 05:20: WBC 13.5 H, RBC 2.59 L, Hgb 7.4 L, Hct 23.4 L, MCV 90.3, MCH 28.6, MCHC 31.6 L, Plt Count 231, MPV 8.8, Immature Gran % (Auto) 0.700, Neut % (Auto) 87.4 H, Lymph % (Auto) 5.8 L, [place] % (Auto) 5.4, Eos % (Auto) 0.4, Baso % (Auto) 0.3, Absolute Neuts (auto) 11.8 H, Nucleated RBC % 0, Sodium 134 L, Potassium 4.0, Chloride 101, Carbon Dioxide 29.0, Anion Gap 4 L, BUN 67 H, Creatinine 3.41 H, Est GFR (MDRD) Af Amer 18 L, Est GFR (MDRD) Non-Af 14 L, BUN/Creatinine Ratio 19.6, Glucose 249 H, Calcium 8.2 L Rhythm: EKG: ECHO: Stress Test: Cardiac Cath: PCI: CT Surgery: Holter monitor: EPS: PPM: CXR: Chest CT Scan: Radiography Diagnostic Testing: Radiology Impression Lumbar Spine MRI 10/05/23 10:56 IMPRESSION: Extensive postsurgical changes L2 through the sacrum. Limited sensitivity and specificity due to extensive magnetic susceptibility artifact. Osteomyelitis is therefore difficult to exclude. Extensive Posterior paraspinal and subcutaneous fluid collections noted. Differential considerations include seroma, hematoma and/or abscess. Electronically Signed: Leandro Mcdonald MD at 18:39 EST Reading Location ID and State: [facility] / [place] Tel , Service support , Thoracic Spine MRI 10/05/23 10:56 IMPRESSION: Posterior subcutaneous lumbar fluid collection. Please see lumbar spine MRI report. Extensive bilateral pulmonary consolidations. No evidence of discitis or osteomyelitis. Electronically Signed: Leandro Mcdonald MD at 19:12 EST , Chest X-Ray 10/05/23 12:00 IMPRESSION: Endotracheal tube is at 4.3 sinus proximal to the jen. Bilateral airspace disease as described. Electronically Signed: Kayode Phillips MD at 12:47 EST , Physical Exam Narrative Intubated and sedated. Const Constitutional Narrative: Intubated and sedated HEENT normocephalic Eyes Eyes Narrative: Not observed Neck Neck Narrative: Endotracheal tube in place. Chest inspection of chest normal Resp Auscultation: rhonchi throughout and wheezes expiratory wheezes and throughout Cardio regular rhythm, S1 normal heart sound, S2 normal heart sound, no murmurs, no rub and no gallops Rate: tachycardic GI soft to palpation Extremity Extremity Narrative: The skin is drawn over lower extremities consistent with resolving lower extre mity edema. Skin Skin Narrative: Decreased skin turgor over the lower extremities. Neuro Neuro Narrative: Sedated Psych Psych Narrative: Unable to ascertain. Assessment & Plan Assessment/Plan (1) Paroxysmal atrial fibrillation: PLAN: The patient converted to sinus rhythm on IV amiodarone load. I do not feel that full anticoagulation is indicated at this point in time given the short duration of this atrial fibs which appears to be precipitated by her sepsis and pulmonary respiratory distress. The patient should be switched as amnio was discontinued to metoprolol tartrate 25 mg twice daily down her NG tube. Once she has recovered and taking p.o. she can be switched back to the metoprolol succinate preparation she was on in her home environment. Should the patient have a recurrence of her atrial fibrillation she should be anticoagulated. (2) CHF (congestive heart failure): QUALIFIERS: Heart failure type: diastolic Heart failure chronicity: chronic Qualified Code(s): I50.32 - Chronic diastolic (congestive) heart failure PLAN: The patient's sepsis does not appear to have resulted in a decompensation of her heart failure. She does need to be reinstituted on her heart failure medical therapy prior to discharge as tolerated by her blood pressure and heart rate response. PLAN: Plan 1. I do not feel that long-term oral anticoagulation is indicated at this point in time. Should the patient have a recurrence of her paroxysmal atrial fibrillation and long-term anticoagulation should be considered 2. DC amiodarone. 3. Lopressor tartrate 25 mg twice daily down the NG tube. Should be converted to her home succinate preparation prior to discharge. 4. The patient should follow-up in 2 weeks in the outpatient department in the [facility]. 5. Cardiology will sign off at this time if further assistance is needed please recall us. Charges/Coding Visit Charges Inpatient E&M: 54748 Init Hosp L2
[2023-10-06] MEDS: Acetaminophen 650 MG/20 ML UDC GT ×2 (08:39→14:30)
[2023-10-06] MEDS: Chlorhexidine 15 ML PO (08:41)
[2023-10-06] MEDS: Metoprolol Tartrate 25 MG Tablet GT (08:52)
[2023-10-06] MEDS: Pantoprazole Sodium 40 MG in 0.9% Normal Saline (100mL MB+) 100 ML 330 MG IV (09:46)
[2023-10-06] MEDS: Enoxaparin 30 MG/0.3 ML Syringe SC (09:46)
[2023-10-06] MEDS: 0.9% Saline Lock 10 ML Syringe IV (09:46)
[2023-10-06] MEDS: fentaNYL drip 100 ML 5 MCG CONT INF (10:30)
[2023-10-06 10:41] LABS: Vancomycin, Trough Level 17.2 ug/mL (5.0-15.0)
[2023-10-06] MEDS: Vancomycin IV 1,000 MG/200 ML BAG 200 MG IV (11:24)
--- NOTE | 2023-10-06 11:30 | PCM.PN.REN ---
Subjective Subjective Events noted. She is currently intubated. Chest x-ray with extensive bilateral infiltrates. Minimal urine output. Creatinine worsening. Objective Data Objective Data Vital Signs: Vital Signs Temp Pulse Resp BP Pulse Ox O2 Del Method O2 Flow Rate 104.0 F H 94 14 154/71 H 93 Mechanical Ventilator 8 10/06/23 10:40 10/06/23 09:41 10/06/23 09:41 10/06/23 08:00 10/06/23 09:41 10/06/23 08:00 10/04/23 17:00 FiO2 45 10/06/23 08:00 Oxygen Flow Rate (L/min) 8 Oxygen Delivery Method Mechanical Ventilator Weight: 99.6 kg Body Mass Index (BMI) 38.9 Intake & Output: Intake and Output for Last 24 Hours 10/04/23 10/05/23 10/06/23 23:59 23:59 23:59 Intake Total 1156 / 1156 1241.98 / 1264.38 564.62 / 564.62 Output Total 910 / 910 315 / 315 215 / 215 Balance 246 / 246 926.98 / 949.38 349.62 / 349.62 Lab / Micro Data 10/06/23 05:20 10/06/23 05:20 Labs: Laboratory Results - last 24 hr 10/05/23 12:19: Complement C3 121 10/05/23 17:35: POC Glucose 253 H 10/05/23 20:40: POC Glucose 260 H 10/05/23 23:21: POC Glucose 259 H 10/06/23 05:06: POC Glucose 251 H 10/06/23 05:20: WBC 13.5 H, RBC 2.59 L, Hgb 7.4 L, Hct 23.4 L, MCV 90.3, MCH 28.6, MCHC 31.6 L, RDW Std Deviation 53.2 H, RDW Coeff of Mat 16.1 H, Plt Count 231, MPV 8.8, Immature Gran % (Auto) 0.700, Neut % (Auto) 87.4 H, Lymph % (Auto) 5.8 L, [place] % (Auto) 5.4, Eos % (Auto) 0.4, Baso % (Auto) 0.3, Absolute Neuts (auto) 11.8 H, Absolute Lymphs (auto) 0.79 L, Nucleated RBC % 0, Sodium 134 L, Potassium 4.0, Chloride 101, Carbon Dioxide 29.0, Anion Gap 4 L, BUN 67 H, Creatinine 3.41 H, Estim Creat Clear Calc 18.96, Est GFR (MDRD) Af Amer 18 L, Est GFR (MDRD) Non-Af 14 L, BUN/Creatinine Ratio 19.6, Glucose 249 H, Calcium 8.2 L 10/06/23 09:40: Vancomycin Trough 17.2 H Micro: Microbiology 10/05/23 11:50 Sputum, Induced/Lukens Gram Stain - Final 10/05/23 11:50 Sputum, Induced/Lukens Respiratory Culture - Preliminary Staphylococcus aureus 10/03/23 14:05 Blood Culture (Wb) #2 - Anticubital Right Blood Culture - Final Staphylococcus aureus 10/03/23 14:05 Blood Culture (Wb) - Anticubital Left Blood Culture - Final Meth. resistant Staph. aureus 10/04/23 09:00 Urine Catheter - Barcenas Legionella Antigen - Final 10/04/23 09:00 Urine Catheter - Barcenas Streptococcus pneumoniae Antigen (M - Final 10/03/23 15:04 Stool Stool Occult Blood (SALLY) - Final Occult Blood Positive 10/03/23 14:05 Mucosa - Nasopharyngeal SARS-CoV-2, Influenza & RSV (PCR) - Final ABG Data ABG results: ABG 10/05/23 10/05/23 11:26 14:02 Specimen Type ART ART Sample Site R Radial R Radial pH 7.28 L 7.35 Bicarbonate Actual 28.5 H 27.9 H Total CO2 30 30 Base Excess 2 2 O2 Saturation 92 L 95 O2 % 45.0 50.0 ABG pCO2 60.3 H 50.4 H ABG pO2 72 L 81 Chapo Test Positive Respiration Rate 12 14 O2 Delivery Device BiPAP Adult Vent Vent Mode Not entered AC Tidal Volume 450.0 POC PEEP 6 5 Radiography Diagnostic Testing: Radiology Impression Lumbar Spine MRI 10/05/23 10:56 IMPRESSION: Extensive postsurgical changes L2 through the sacrum. Limited sensitivity and specificity due to extensive magnetic susceptibility artifact. Osteomyelitis is therefore difficult to exclude. Extensive Posterior paraspinal and subcutaneous fluid collections noted. Differential considerations include seroma, hematoma and/or abscess. Electronically Signed: Leandro Mcdonald MD at 18:39 EST , Thoracic Spine MRI 10/05/23 10:56 IMPRESSION: Posterior subcutaneous lumbar fluid collection. Please see lumbar spine MRI report. Extensive bilateral pulmonary consolidations. No evidence of discitis or osteomyelitis. Electronically Signed: Leandro Mcdonald MD at 19:12 EST , Chest X-Ray 10/05/23 12:00 IMPRESSION: Endotracheal tube is at 4.3 sinus proximal to the jen. Bilateral airspace disease as described. Electronically Signed: Kayode Phillips MD at 12:47 EST , Rhythm Strip Rhythm Strip: Sinus Rhythm Rate: 104 Physical Exam Narrative Intubated no pallor no icterus no JVD s1s2 no murmurs lungs clear abdomen soft no organomegaly no edema no cyanosis barcenas + Assessment & Plan Assessment/Plan (1) Acute kidney injury superimposed on chronic kidney disease: PLAN: Baseline creatinine was around 1.5. Had an episode of ATN requiring dialysis last year. Patient baseline creatinine was around 1.5-2.0. Came in with altered mental status. Blood culture positive for MRSA. Recent back surgery. MRI with fluid collection, hard to rule out infection. Chest x-ray with bilateral extensive infiltrates now. Currently intubated Minimal urine output C3 levels are low. Possible that she has another episode of ATN. Ongoing high-grade fevers. Likely she will need dialysis. Discussed with family at bedside. Discussed with ICU attending. Possible transfer to [facility] today since she recently had back surgery over there. If she stays here, she might need dialysis in the next 1 to 2 days. Family updated about plan
--- NOTE | 2023-10-06 12:10 | PHA.PHARE_ITS ---
Consult Antibiotic Management Pharmacy has been consulted to manage selected antibiotic: Vancomycin Type of Intervention Type of Consult: Follow-up Prior Doses of Antibiotics Prior Doses of Antibiotics Received/Current Regimen: current dose as of this morning was vanc 1000mg IV q24h Labs Labs: Sodium 134 mmol/L (136-145) L 10/06/23 05:20 Potassium 4.0 mmol/L (3.5-5.1) 10/06/23 05:20 Chloride 101 mmol/L (98-107) 10/06/23 05:20 Carbon Dioxide 29.0 mmol/L (21.0-32.0) 10/06/23 05:20 Anion Gap 4 (5-15) L 10/06/23 05:20 BUN 67 mg/dL (7-18) H 10/06/23 05:20 Creatinine 3.41 mg/dL (0.55-1.02) H 10/06/23 05:20 Est GFR (MDRD) Af Amer 18 mL/min (>60) L 10/06/23 05:20 Est GFR (MDRD) Non-Af 14 mL/min (>60) L 10/06/23 05:20 BUN/Creatinine Ratio 19.6 RATIO (10-20) 10/06/23 05:20 Glucose 249 mg/dL (74-106) H 10/06/23 05:20 Vancomycin Trough 17.2 ug/mL (5.0-15.0) H 10/06/23 09:40 Microbiology Microbiology: Microbiology 10/05/23 11:50 Sputum, Induced/Lukens Gram Stain - Final 10/05/23 11:50 Sputum, Induced/Lukens Respiratory Culture - Preliminary Staphylococcus aureus 10/03/23 14:05 Blood Culture (Wb) #2 - Anticubital Right Blood Culture - Final Staphylococcus aureus 10/03/23 14:05 Blood Culture (Wb) - Anticubital Left Blood Culture - Final Meth. resistant Staph. aureus 10/04/23 09:00 Urine Catheter - Gaffney Legionella Antigen - Final 10/04/23 09:00 Urine Catheter - Gaffney Streptococcus pneumoniae Antigen (M - Final 10/03/23 15:04 Stool Stool Occult Blood (SALLY) - Final Occult Blood Positive 10/03/23 14:05 Mucosa - Nasopharyngeal SARS-CoV-2, Influenza & RSV (PCR) - Final Dosing Weight Weight used for dosin.6 kg Estimated Creatinine Clearance Estimated Creatinine Clearance: 19 ml/min Goal Trough Goal Trough: 15-20 mcg/mL Pharmacy Plan for Drug Dosing Pharmacy Plan for Drug Dosing: The patient's SCr went up to 3.41 today from 2.41 yesterday so the scheduled vanc 1000mg IV q24h was discontinued this morning pending the result of the t rough. This trough came back as 17.2 which is within goal range so will give a one-time dose of vanc 1000mg today. Will repeat another vanc random level tomorrow morning to see if a dose should be given tomorrow. Will schedule the random level at 06:00 tomorrow morning in the event that the patient would need dialysis tomorrow (nephrology note says that is possible in 1-2 days) so that the trough would be pre-dialysis. Pharmacy Service will continue to monitor and adjust dosing as required. Follow-Up Labs Follow-Up Labs: Trough: Vancomycin (random) Date/Time Labs Ordered Labs to be done on [date and time ordered]: 10/07/23 06:00
[2023-10-06 12:50] LABS: Bedside Glucose 211 mg/dL (74-106)
[2023-10-06] MEDS: Nystatin Powder 15gm Bottle 1 APPLIC TOPICAL (13:57)
[2023-10-06] MEDS: Vital AF 1.2 Cal Liquid 1,000 ML 20 ML GT (14:25)
--- NOTE | 2023-10-06 15:47 | PCM.PN.ID ---
Physical Exam Narrative Now on vent, family at bedside, no fever overnight Const no apparent distress Resp Effort and Inspection: mechanically ventilated Auscultation: rhonchi Cardio Rate: tachycardic GI soft to palpation, non-tender and non-distended Skin no rashes or lesions noted ID ID: Route of nutrition/ use of supplements: [] Nutritional Intake: [] IV Site: [] Gaffney Catheter: [] Assessment & Plan Assessment/Plan (1) Staphylococcus aureus bacteremia: PLAN: MRSA bacteremia - Had spine surgery 09/15/[address] [facility] [address] Mendosa for decompression laminectomy, PSF L3-S2, L3-L5 TLIF. Minimal drainage from incision, diane still in place, but on admit c/o increased back pain. Will check repeat bcx. TTE showed no veg. L sided effusion seen on CT. Multiple fluid collections seen on MRI noncontrast of T and L spine. Recommend eval by her spine surgeon. Now on vent. Wbc and lactate improved. CKD at baseline. Cont vanc/zosyn for now. Will follow, d/w pulm and primary team (2) Sepsis:
--- NOTE | 2023-10-06 17:25 | PCM.DC.SUM ---
Providers Date of Admission: 10/03/23 Date of Discharge: 10/06/23 Primary Care Physician: KIZZY LYNNE Consultations 10/04/23 08:41 Consult: Bedspread Inspector / Pulmonary Medicine Routine Consulting Provider: Intensivists/Pulmonary Med Reason for Consult: Respiratory failure EMERGENT Consult: No Notified: Yes Date Notified: 10/04/23 Time Notified: 08:41 Method of Notification: Verbal 10/04/23 11:23 Consult: Gastroenterology Routine Consulting Provider: [facility] Reason for Consult: Anemia, Occult + stool EMERGENT Consult: No MD Notified: Yes Date Notified: 10/04/23 Time Notified: 11:24 Method of Notification: Text 10/05/23 07:01 Consult: Cardiology Routine Consulting Provider: Eliot Ulloa Reason for Consult: New onset A fib EMERGENT Consult: No MD Notified: Yes Date Notified: 10/05/23 Time Notified: 07:02 Method of Notification: Verbal 10/05/23 08:29 Consult: Nephrology Routine Consulting Provider: Eduard Baez Reason for Consult: MARIANA EMERGENT Consult: No MD Notified: Yes Date Notified: 10/05/23 Time Notified: 08:38 Method of Notification: Answering Service 10/05/23 09:14 Consult: Infectious Disease Routine Consulting Provider: Patrick Florentino Reason for Consult: Staph bacteremia EMERGENT Consult: No MD Notified: Yes Date Notified: 10/05/23 Time Notified: 09:14 Method of Notification: Text Reason For Visit: SHORTNESS OF BREATH Diagnosis Discharge Diagnosis (1) Staphylococcus aureus bacteremia: Status: Acute Code(s): R78.81 - Bacteremia; B95.61 - Methicillin susceptible Staphylococcus aureus infection as the cause of diseases classified elsewhere (2) Sepsis: Status: Acute Code(s): A41.9 - Sepsis, unspecified organism Plan 63-year-old female with recent lumbar surgery, rheumatoid arthritis on etanercept and prior history of COPD presents with worsening shortness of breath, drowsiness, leukocytosis, elevated BNP and radiology findings of left-sided pleural effusion with suspected infiltrates. 1. Acute hypoxic respiratory failure ?Suspected to be secondary to pneumonia with multidrug-resistant organism given patient immunosuppressive status. Admitted to the intensive care unit placed on noninvasive ventilation with BiPAP with consultation placed pulmonary medicine ? 10/05/2023; patient remains on BiPAP. ?10/06/2023 patient was intubated on 10/05/2023 in view of deteriorating respiratory status. 2. MRSA bacteremia ? 10/06/2019 patient blood cultures came back positive for MRSA. Given patient recent decompression laminectomy on 09/15/2023 at [facility] subsequent imaging studies with MRI of the thoracic and lumbar spine were ordered which demonstrated extensive postsurgical changes L2 through the sacrum. Limited sensitivity and specificity due to extensive magnetic susceptibility artifact. Osteomyelitis is therefore difficult to exclude. Extensive Posterior paraspinal and subcutaneous fluid collections noted. Differential considerations include seroma, hematoma and/or abscess. ? Based on above findings did place a call to [facility] to have patient transferred to be evaluated by hand surgeon 2. Pneumonia with suspected multidrug resistance organism ? Patient started on ceftriaxone and azithromycin, adjusted antibiotic therapy with addition of vancomycin ? 10/06/2023; patient antibiotic therapy adjusted currently on Zosyn and vancomycin 3. Elevated D-dimer ? With high suspicion for VTE. Bilateral venous Doppler ordered. CTA could not be ordered given patient impaired kidney function ? 10/05/2023; bilateral venous duplex negative for DVT; patient systemic anticoagulation with heparin discontinued subsequently started on Lovenox dose adjusted for kidney function 4. Acute metabolic encephalopathy ? Secondary to acute hypoxic respiratory failure 5. New onset paroxysmal A-fib with RVR ? 10/05/2023. Patient did not respond to Lopressor and Cardizem had to be started on amiodarone drip ? 10/06/2023 patient amiodarone drip has since been weaned off 6. Chronic kidney disease stage IV ? Patient creatinine has fluctuated in the past and did require transient hemodialysis. Creatinine on admission was 2.19 downto 2.15 7. Anemia - Secondary to chronic disorder/iron deficiency anemia. Patient hemoglobin on admission was 6.9. Did receive transfusion with 1 unit PRBC. Subsequently monitoring H&H and transfuse if patient becomes symptomatic or hemoglobin falls below 7. Patient apparently had rectal exams in the emergency department which was Hemoccult negative ? 10/05/[address] Martin with GI plan is for patient to undergo upper endoscopic evaluation when medically stable 8. Diabetes mellitus type 2 ? With complications including diabetic nephropathy as well as diabetic polyneuropathy. Held patient oral agents placed on long-acting insulin with sliding scale coverage 9. Rheumatoid arthritis ? Patient is on etanercept SC q. weekly 10. Dyslipidemia -Patient is on statin therapy, continued at home dose 11. Tobacco dependence - Counseled on cessation, offered nicotine patch for tobacco cravings 12. Acute kidney injury ruled out 13. Class II obesity with BMI of 38 ? Weight loss advised 14. Essential hypertension ? Patient blood pressure control remains labile 19. DVT prophylaxis ? Patient on Lovenox Time spent in the patient's overall evaluation,decision-making process, review of diagnostic data, adjustment of management, discussion with other providers, nursing nursing and ancillary staff involved in patient's care documentation, 50 Minutes Medications at Discharge Home Medications ergocalciferol (vitamin D2) 1,250 mcg (50,000 unit) capsule 50,000 unit PO MARTELL SUPPLEMENT 02/28/14 duloxetine 60 mg capsule,delayed release 60 mg PO DAILY NEUROPATHY 02/17/18 insulin glargine 100 unit/mL subcutaneous solution (Lantus U-100 Insulin) 19 unit subcut QHS dm 03/01/18 bupropion HCl 150 mg tablet,12 hr sustained-release 150 mg PO BID depression 08/16/22 gabapentin 300 mg capsule 300 mg PO DAILY neuropathy 08/16/22 metoprolol succinate 25 mg tablet,extended release 24 hr 25 mg PO DAILY bp 08/16/22 pramipexole 0.5 mg tablet 0.5 mg PO QHS Check with primary doctor 08/16/22 albuterol sulfate 90 mcg/actuation aerosol inhaler (ProAir HFA) 2 inh inhalation Q4H PRN shortness of breath or wheezing 04/05/23 tamsulosin 0.4 mg capsule (Flomax) 0.4 mg PO DAILY 04/05/23 atorvastatin 40 mg tablet 40 mg PO DAILY 10/03/23 cyanocobalamin (vitamin B-12) 2,500 mcg sublingual lozenge 2,500 mcg sublingual DAILY 10/03/23 etanercept 50 mg/mL (1 mL) subcutaneous pen injector (Enbrel SureClick) 50 mg subcut QWEEK 10/03/23 ferrous sulfate 325 mg (65 mg iron) tablet (FeroSul) 325 mg PO .COMPLEX 10/03/23 furosemide 40 mg tablet 40 mg PO Q12H 10/03/23 ipratropium 0.5 mg-albuterol 3 mg (2.5 mg base)/3 mL nebulization soln 3 ml continuous nebulization Q6H PRN shortness of breath 10/03/23 nicotine 14 mg/24 hr daily transdermal patch 1 patch topical Q24H 10/03/23 semaglutide 0.25 mg or 0.5 mg (2 mg/3 mL) subcutaneous pen injector (Ozempic) 0.25 mg subcut QWEEK 10/03/23 Vancomycin IV-PHARMACY TO DOSE 1 ea IV PRN PRN ##0 10/06/23 insulin lispro 100 unit/mL subcutaneous pen (Humalog KwikPen (U-100) Insulin) See Protocol subcut Q6 #0 mL 10/06/23 ipratropium 0.5 mg-albuterol 3 mg (2.5 mg base)/3 mL nebulization soln 3 ml inhalation Q6H.RT #0 mL 10/06/23 metoprolol tartrate 25 mg tablet 25 mg G-tube BID #0 tabs 10/06/23 nystatin 100,000 unit/gram topical powder (Nyamyc) 1 applic topical TID #0 grams 10/06/23 pantoprazole 40 mg intravenous solution 40 mg IV Q12 #0 ea 10/06/23 Hospital Course Summary of Care Provided Minutes Spent on Discharge: 50 Physical Exam Narrative GENERAL: Sedated on the vent HEENT: Atraumatic; normocephalic EYES; Anicteric, Normal Conjunctiva NECK; supple, normal thyroid, RESPIRATORY: Diminished to auscultation CARDIOVASCULAR: Regular S1 S2, GI: soft, normoactive bowel sounds, : No Renal angle tenderness; EXTREMITIES: edema, no clubbing, MUSCULOSKELETAL: no muscle wasting NEURO: Sedated on the vent SKIN: No Rash Weight / BMI Weight Weight: 99.6 kg Body Mass Index (BMI) 38.9 ABG / Lab / Microbiology Data 10/06/23 05:20 10/06/23 05:20 Laboratory: Laboratory Results - last 24 hr 10/05/23 12:19: Complement C3 121 10/05/23 17:35: POC Glucose 253 H 10/05/23 20:40: POC Glucose 260 H 10/05/23 23:21: POC Glucose 259 H 10/06/23 05:06: POC Glucose 251 H 10/06/23 05:20: WBC 13.5 H, RBC 2.59 L, Hgb 7.4 L, Hct 23.4 L, MCV 90.3, MCH 28.6, MCHC 31.6 L, RDW Std Deviation 53.2 H, RDW Coeff of Mat 16.1 H, Plt Count 231, MPV 8.8, Immature Gran % (Auto) 0.700, Neut % (Auto) 87.4 H, Lymph % (Auto) 5.8 L, [place] % (Auto) 5.4, Eos % (Auto) 0.4, Baso % (Auto) 0.3, Absolute Neuts (auto) 11.8 H, Absolute Lymphs (auto) 0.79 L, Nucleated RBC % 0, Sodium 134 L, Potassium 4.0, Chloride 101, Carbon Dioxide 29.0, Anion Gap 4 L, BUN 67 H, Creatinine 3.41 H, Estim Creat Clear Calc 18.96, Est GFR (MDRD) Af Amer 18 L, Est GFR (MDRD) Non-Af 14 L, BUN/Creatinine Ratio 19.6, Glucose 249 H, Calcium 8.2 L 10/06/23 09:40: Vancomycin Trough 17.2 H 10/06/23 12:28: POC Glucose 211 H Microbiology: Microbiology 10/05/23 11:50 Sputum, Induced/[place] Gram Stain - Final 10/05/23 11:50 Sputum, Induced/[place] Respiratory Culture - Preliminary Staphylococcus aureus 10/03/23 14:05 Blood Culture (Wb) #2 - Anticubital Right Blood Culture - Final Staphylococcus aureus 10/03/23 14:05 Blood Culture (Wb) - Anticubital Left Blood Culture - Final Meth. resistant Staph. aureus 10/04/23 09:00 Urine Catheter - [place] Legionella Antigen - Final 10/04/23 09:00 Urine Catheter - [place] Streptococcus pneumoniae Antigen (M - Final 10/03/23 15:04 Stool Stool Occult Blood (SALLY) - Final Occult Blood Positive 10/03/23 14:05 Mucosa - Nasopharyngeal SARS-CoV-2, Influenza & RSV (PCR) - Final Radiography Diagnostic Testing: Radiology Impression Lumbar Spine MRI 10/05/23 10:56 IMPRESSION: Extensive postsurgical changes L2 through the sacrum. Limited sensitivity and specificity due to extensive magnetic susceptibility artifact. Osteomyelitis is therefore difficult to exclude. Extensive Posterior paraspinal and subcutaneous fluid collections noted. Differential considerations include seroma, hematoma and/or abscess. Electronically Signed: Leandro Mcdonald MD at 18:39 EST Reading Location ID and State: [address] [place] [address] Tel , Service support , Thoracic Spine MRI 10/05/23 10:56 IMPRESSION: Posterior subcutaneous lumbar fluid collection. Please see lumbar spine MRI report. Extensive bilateral pulmonary consolidations. No evidence of discitis or osteomyelitis. Electronically Signed: Leandro Mcdonald MD at 19:12 EST Reading Location ID and State: [id number] Tel , Service support , Meaningful Use Info Meaningful Use Diagnoses (Choose all that apply): None applicable Discharge Plan Admission Admit Date/Time: 10/03/23 16:49 Attending Provider: Bc Parker Primary Care Provider: KIZZY LYNNE Consulting Providers: Rayne Hdez; Robert Luna; Wolfgang Erazo; Kyle Vance; Lucio Pickard; Rajani Herr; Alfred Gonsalez; Wanda Ribeiro; Bebeto Boyce; Kennedy Odonnell; Gerhard Beck; Eduardo Elena; Wilfred Mcclelland; Eilot Ulloa; Eduard Baez; Patrick Florentino Discharge Orders/Prescriptions Prescriptions: New ipratropium-albuterol 0.5 mg-3 mg(2.5 mg base)/3 mL Solution For Nebulization 3 ml inhalation Q6H.RT Qty: 0 0RF pantoprazole 40 mg Recon Soln 40 mg IV Q12 Qty: 0 0RF nystatin [Nyamyc] 100,000 unit/gram Powder 1 applic topical TID Qty: 0 0RF Protocol: *Topical Application Instructions APPLICATION INSTRUCTIONS: apply to groin and abdominal folds insulin lispro [Humalog KwikPen Insulin] 100 unit/mL Insulin Pen See Protocol subcut Q6 Qty: 0 0RF Protocol: 3. Sliding Scale Insulin Med Dosing Condition: 150-189 mg/dl = 1 unit Condition: 190-229 mg/dl = 2 units Condition: 230-269 mg/dl = 3 units Condition: 270-309 mg/dl = 4 units Condition: 310-349 mg/dl = 5 units Condition: 350-399 mg/dl = 6 units Condition: 400-449 mg/dl = 7 units Condition: Greater than 449 call physician Protocol Text: - Use for Total Daily Dose of Insulin 37-55 units - Obsese, infected, or steroid patients MEDIUM DOSING ALGORITHIM metoprolol tartrate 25 mg Tablet 25 mg G-tube BID Qty: 0 0RF Vancomycin Iv-Pharmacy To Dose [Vancomycin Iv-Pharmacy To Dose] 1 ea IV PRN PRNQty: 0 0RF Continued insulin glargine [Lantus U-100 Insulin] 100 unit/mL solution 19 unit SC QHS ergocalciferol (vitamin D2) 50,000 UNIT capsule 50,000 unit PO MARTELL Patient Comments: SUPPLEMENT takes on sundays duloxetine 60 MG capsule,delayed release(DR/EC) 60 mg PO DAILY Patient Comments: STATES HAD YESTERDAY MORNING bupropion HCl 150 mg tablet sustained-release 12 hr 150 mg PO BID Patient Comments: take 1 tablet by mouth twice a day pramipexole 0.5 mg tablet 0.5 mg PO QHS Patient Comments: take 1 tablet by mouth at bedtime gabapentin 300 mg capsule 300 mg PO DAILY Patient Comments: take 1 capsule by mouth every morning 2 capsules MIDDAY and 2 capsules at bedtime metoprolol succinate 25 mg tablet extended release 24 hr 25 mg PO DAILY Patient Comments: take 1 tablet by mouth once daily tamsulosin [Flomax] 0.4 mg capsule 0.4 mg PO DAILY albuterol sulfate [ProAir HFA] 90 mcg/actuation HFA aerosol inhaler 2 inh inhalation Q4H PRN (Reason: shortness of breath or wheezing) atorvastatin 40 mg tablet 40 mg PO DAILY ferrous sulfate [FeroSul] 325 mg (65 mg iron) tablet 325 mg PO .COMPLEX Rx Instructions: 325 mg orally QOD; furosemide 40 mg tablet 40 mg PO Q12H ipratropium-albuterol 0.5 mg-3 mg(2.5 mg base)/3 mL solution for nebulization 3 ml continuous nebulization Q6H PRN (Reason: shortness of breath) nicotine 14 mg/24 hr patch 24 hour 1 patch topical Q24H Patient Comments: NOT CURRENTLY WEARING A PATCH cyanocobalamin (vitamin B-12) 2,500 mcg lozenge 2,500 mcg sublingual DAILY Enbrel SureClick 50 mg/mL (1 mL) pen injector 50 mg subcut QWEEK Ozempic 0.25 mg or 0.5 mg (2 mg/3 mL) pen injector 0.25 mg subcut QWEEK Rx Instructions: for 4 weeks Referrals / Follow Up: KIZZY LYNNE [Other] Eliezer Armando ENAMEL BUFFER, ENAMEL BUFFER-C [Non-Staff] - Disposition Disposition (needs filled in before D/C Order can be placed): Acute Care Hospital Charges/Coding Visit Charges Inpatient E&M: 45319 Disch Hosp >30min
[2023-10-06 19:05] LABS: Bedside Glucose 236 mg/dL (74-106)
== END 2023-10-06 20:55 | disposition short-term general hospital (02) | DRG 720 ==
LOC: ED 15:56 → PCU 16:59 → ICU 17:22
PROVIDERS: Internal Medicine Nephrology; Admitting Provider Internal Medicine; Emergency Provider Emergency Medicine; Visit Provider Internal Medicine
DX: A41.02 Sepsis due to Methicillin resistant Staphylococcus aureus (principal); J96.21 Acute and chronic respiratory failure with hypoxia; N17.0 Acute kidney failure with tubular necrosis; G93.41 Metabolic encephalopathy; E87.29 Other acidosis; I13.0 Hypertensive heart and chronic kidney disease with heart failure and stage 1 through stage 4 chronic kidney disease, or unspecified chronic kidney disease; D62 Acute posthemorrhagic anemia; I50.32 Chronic diastolic (congestive) heart failure; J18.9 Pneumonia, unspecified organism; N18.4 Chronic kidney disease, stage 4 (severe); J44.0 Chronic obstructive pulmonary disease with (acute) lower respiratory infection; E11.65 Type 2 diabetes mellitus with hyperglycemia; J44.1 Chronic obstructive pulmonary disease with (acute) exacerbation; E11.21 Type 2 diabetes mellitus with diabetic nephropathy; E11.42 Type 2 diabetes mellitus with diabetic polyneuropathy; E11.22 Type 2 diabetes mellitus with diabetic chronic kidney disease; Z79.4 Long term (current) use of insulin; I48.0 Paroxysmal atrial fibrillation; M06.9 Rheumatoid arthritis, unspecified; D50.9 Iron deficiency anemia, unspecified; I35.0 Nonrheumatic aortic (valve) stenosis; E78.5 Hyperlipidemia, unspecified; S30.0XXA Contusion of lower back and pelvis, initial encounter; G89.29 Other chronic pain; B95.61 Methicillin susceptible Staphylococcus aureus infection as the cause of diseases classified elsewhere
CPT/HCPCS: 31500; 31720; 36600; 71045; 72146; 72148; 80048; 80053; 80076; 80202; 82248; 82274; 82803; 82962; 83540; 83550; 83605; 83735; 83880; 84100; 84443; 84484; 85014; 85018; 85025; 85379; 85610; 86160; 86850; 86900; 86901; 86920; 86922; 87040; 87070; 87077; 87186; 87205; 87449; 87631; 93005; 93306; 93970; 94002; 94003; 94640; 94660; 97162; 97166; 97803; 99252; 99285; 99406; J7030; J7040; J7050; P9016; Q9957; A4216; C8929; G0463; J1940

== ENCOUNTER 2025-04-10 10:54 | Outpatient (CLI) | payer MEDICAID, MEDICARE, SELFPAY ==
[2025-04-10 11:12] VITALS: PULSE 94; RESP 20; TEMP 35.8; O2SAT 100
[2025-04-10 12:13] VITALS: BP 135/58; PULSE 38; RESP 18; TEMP 35.9; O2SAT 91
[2025-04-10 13:11] VITALS: BP 152/67; PULSE 101; RESP 16; TEMP 35.7; O2SAT 97
[2025-04-10 14:07] VITALS: BP 144/80; PULSE 100; RESP 18; TEMP 36.1; O2SAT 98
== END 2025-04-10 23:59 | disposition home or self-care (01) ==
PROVIDERS: Referring Provider Specialist; Visit Provider Specialist
DX: D64.89 Other specified anemias (principal)
CPT/HCPCS: 36430; 86850; 86900; 86901; P9016; A4216

== ENCOUNTER 2025-04-19 11:30 | Outpatient (CLI) | payer MEDICARE, MEDICAID, SELFPAY | END 2025-04-19 23:59 | disposition home or self-care (01) | LOC: MEDOUTP 07-11 12:04 | PROVIDERS: Referring Provider Internal Medicine Hematology & Oncology; Visit Provider Internal Medicine Hematology & Oncology | DX: D64.89 Other specified anemias (principal) | CPT/HCPCS: 86850; 86900; 86901 ==